=== PATIENT | female | born 1945 | race Caucasian/White ===

== ENCOUNTER 2017-01-09 06:05 | Inpatient (IN) | payer MEDICARE, BC ==
[2017-01-09] VITALS (15 sets, daily range): BP systolic 83–127; BP diastolic 38–63
[~2017-01-09] VITALS: Ht 162.6 cm; Wt 106.6 kg
[~2017-01-09 06:05] MED LIST: ALLO100T PO; AMLO10TA2 PO; ASPI-630 PO; ATEN25TA PO; CALC667C PO; CALC667C6 PO; CARB200T PO; CLOP75TA PO; ERGO500027 PO; FENO160T PO; FERR325T58 PO; FOLI0.8T3 PO; GABA-585 PO; KETO5DRO EACHEYE; LISI-338 PO; MELO7.5T29 PO; OMEG1CAP6 PO; OMEP20CA9 PO; SIMV40TA3 PO
[2017-01-09] MEDS ORDERED: IV NORMAL SALINE 500ML BAG 500 ML IV ONE (06:45)
[2017-01-09 07:07] LABS: POTASSIUM ISTAT 3.8 mmol/L (3.5-5.0)
[2017-01-09 07:11] LABS: BASO # 0.1 x10^3/uL (0.0-0.2); BASO % 1 % (0-3); EOS % 0 % (0-3); HEMATOCRIT 30.1 % (36.0-47.0); LYMPH # 0.8 x10^3/uL (1.0-4.8); LYMPH % 7 % (24-48); MEAN CORPUSCULAR HEMOGLOBIN 34 pg (25-35); MEAN CORPUSCULAR HGB CONC 33 g/dL (31-37); MEAN CORPUSCULAR VOLUME 103 fL (79-100); MONO % 7 % (0-9); NEUT % 85 % (31-73); PLATELET COUNT 90 x10^3/uL (140-400); RED BLOOD COUNT 2.92 x10^6/uL (3.50-5.40); RED CELL DISTRIBUTION WIDTH 13.4 % (11.5-14.5)
--- NOTE | 2017-01-09 07:11 | EKG ---
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
--- NOTE | 2017-01-09 07:16 | RAD ---
Chest x-ray Indication: Generalized weakness and extreme tiredness for 2 days Technique: Portable AP upright chest plane from Comparison: Previous study from 05/06/2016 Findings: Stable position of left chest wall cardiac device with its leads projecting over the heart. Aortic knob calcifications noted. Heart is normal in size. Lungs are clear. No pneumothorax. Mild blunting of right costophrenic angle may be projectional or secondary to trace pleural effusion. Bilateral AC joint osteoarthritis. Otherwise, visualized bony thorax within normal limits. Impression: Mild blunting of right costophrenic angle may be secondary to trace pleural effusion or projectional. Lungs are clear.
[2017-01-09 07:18] LABS: CREATININE 6.7 mg/dL (0.6-1.0); GFR 6.1; POTASSIUM 3.6 mmol/L (3.5-5.1)
[2017-01-09 07:24] LABS: ALBUMIN 2.8 g/dL (3.4-5.0); ALBUMIN/GLOBULIN RATIO 0.7 (1.0-1.7); TOTAL BILIRUBIN 0.5 mg/dL (0.2-1.0); TOTAL PROTEIN 6.7 g/dL (6.4-8.2)
[2017-01-09] MEDS ORDERED: dilTIAZem IV PUSH 25 MG/5 ML VIAL IVP ONE (07:30)
[2017-01-09] MEDS ORDERED: ASPIRIN CHEWABLE 81 MG TABLET. PO ONE (07:45)
[2017-01-09 08:02] LABS: % BASOS 1 % (0-3)
[2017-01-09 08:04] LABS: ANISOCYTOSIS SLIGHT; PLT ESTIMATE DECREASED (ADEQUATE)
--- NOTE | 2017-01-09 08:47 | PHYS DOC ---
Past Medical History Past Medical History: Anemia, Diabetes-Type II, Hypertension, Renal Failure Additional Past Medical Histor: hypocalcemia,bradycardia,obesity,gout, DIALYSIS Past Surgical History: Cholecystectomy, Gastric Bypass, Hysterectomy, Pacemaker , Other Additional Past Surgical Histo: left fa av shunt, Alcohol Use: None Drug Use: None Adult General Chief Complaint Chief Complaint: WEAKNESS/GENERALIZED HPI HPI 31-year-old female with a history of end-stage renal disease on dialysis, heart valve issues by her description, sent from dialysis today because her heart rate was too fast. Patient gets dialyzed Friday. She went this morning for her treatment but her heart rate was irregular and fast so she was referred to the emergency department. Her copy chief is Dr. Jean. She denies chest pain. No Productive cough or fever. Patient does not a specific complaints but states she just generally doesn't feel well Review of Systems Review of Systems Constitutional: Denies fever or chills [] Eyes: Denies change in visual acuity, redness, or eye pain [] HENT: Denies nasal congestion or sore throat [] Respiratory: Denies cough or shortness of breath [] Cardiovascular: No additional information not addressed in HPI [] GI: Denies abdominal pain, nausea, vomiting, bloody stools or diarrhea [] : Denies dysuria or hematuria [] Musculoskeletal: Denies back pain or joint pain [] Integument: Denies rash or skin lesions [] Neurologic: Denies headache, focal weakness or sensory changes [] Endocrine: Denies polyuria or polydipsia [] Current Medications Current Medications Current Medications Medications (Trade) Dose Ordered Sig/Colleen Start Time Stop Time Status Last Admin Dose Admin Diltiazem HCl (Cardizem) 10 mg 1X ONCE 01/09/17 07:30 01/09/17 07:31 DC 01/09/17 07:39 10 MG Diltiazem HCl 125 mg/Dextrose 125 ml @ 0 mls/hr CONT PRN 01/09/17 07:30 01/09/17 07:40 5 MLS/HR Sodium Chloride 500 ml @ 500 mls/hr 1X ONCE 01/09/17 06:45 01/09/17 07:44 DC 01/09/17 06:45 500 MLS/HR Allergies Allergies Allergies Coded Allergies Type Severity Reaction Last Updated Verified ibuprofen Allergy Intermediate 02/29/16 Yes Physical Exam Physical Exam Well-appearing female no acute distress alert communicative and cooperative ,no increased work of breathing Constitutional: Well developed, well nourished, no acute distress, non-toxic appearance. [] HENT: Normocephalic, atraumatic, bilateral external ears normal, oropharynx moist, no oral exudates, nose normal. [] Eyes: PERRLA, EOMI, conjunctiva normal, no discharge. [] Neck: Normal range of motion, no tenderness, supple, no stridor. [] Cardiovascular:Heart rate tachycardia, irregularly irregular rhythm around 140s to 150s no murmur [] Lungs & Thorax: Bilateral breath sounds clear to auscultation [] Abdomen: Bowel sounds normal, soft, no tenderness, no masses, no pulsatile masses. [] Skin: Warm, dry, no erythema, no rash. [] Back: No tenderness, no CVA tenderness. [] Extremities: No tenderness, no cyanosis, no clubbing, ROM intact, no edema. [] Neurologic: Alert and oriented X 3, normal motor function, normal sensory function, no focal deficits noted. [] Psychologic: Affect normal, judgement normal, mood normal. [] Current Patient Data Vital Signs Vital Signs Date Time Temp Pulse Resp B/P (MAP) Pulse Ox O2 Delivery O2 Flow Rate FiO2 01/09/17 07:30 138 18 93/51 (65) 95 Room Air 01/09/17 06:27 99.4 99.4 Lab Values Laboratory Tests Test 01/09/17 06:45 01/09/17 06:52 White Blood Count 12.0 x10^3/uL (4.0-11.0) H Red Blood Count 2.92 x10^6/uL (3.50-5.40) L Hemoglobin 10.0 g/dL (12.0-15.5) L Hematocrit 30.1 % (36.0-47.0) L Mean Corpuscular Volume 103 fL (79-100) H Mean Corpuscular Hemoglobin 34 pg (25-35) Mean Corpuscular Hemoglobin Concent 33 g/dL (31-37) Red Cell Distribution Width 13.4 % (11.5-14.5) Platelet Count 90 x10^3/uL (140-400) L Neutrophils (%) (Auto) 85 % (31-73) H Lymphocytes (%) (Auto) 7 % (24-48) L Monocytes (%) (Auto) 7 % (0-9) Eosinophils (%) (Auto) 0 % (0-3) Basophils (%) (Auto) 1 % (0-3) Neutrophils # (Auto) 10.2 x10^3uL (1.8-7.7) H Lymphocytes # (Auto) 0.8 x10^3/uL (1.0-4.8) L Monocytes # (Auto) 0.9 x10^3/uL (0.0-1.1) Eosinophils # (Auto) 0.0 x10^3/uL (0.0-0.7) Basophils # (Auto) 0.1 x10^3/uL (0.0-0.2) Segmented Neutrophils % 86 % (35-66) H Band Neutrophils % 1 % (0-9) Lymphocytes % 6 % (24-48) L Monocytes % 6 % (0-10) Basophils % 1 % (0-3) Platelet Estimate Decreased (ADEQUATE) Anisocytosis Slight Sodium Level 136 mmol/L (136-145) Potassium Level 3.6 mmol/L (3.5-5.1) Chloride Level 96 mmol/L (98-107) L Carbon Dioxide Level 26 mmol/L (21-32) Anion Gap 14 (6-14) 17 mmol/L (6-14) H Blood Urea Nitrogen 40 mg/dL (7-20) H Creatinine 6.7 mg/dL (0.6-1.0) H Estimated GFR (Cockcroft-Gault) 6.1 BUN/Creatinine Ratio 6 (6-20) Glucose Level 158 mg/dL (70-99) H 151 mg/dL (70-99) H Calcium Level 8.0 mg/dL (8.5-10.1) L Total Bilirubin 0.5 mg/dL (0.2-1.0) Aspartate Amino Transferase (AST) 32 U/L (15-37) Alanine Aminotransferase (ALT) 28 U/L (14-59) Alkaline Phosphatase 164 U/L (46-116) H Troponin I Quantitative 0.458 ng/mL (0.000-0.055) Total Protein 6.7 g/dL (6.4-8.2) Albumin 2.8 g/dL (3.4-5.0) L Albumin/Globulin Ratio 0.7 (1.0-1.7) L Thyroid Stimulating Hormone (TSH) 2.877 uIU/mL (0.358-3.74) POC Hemoglobin 10.9 g/dL (12-15) L POC Hematocrit 32 % (36-40) L POC Sodium 134 mmol/L (135-145) L POC Potassium 3.8 mmol/L (3.5-5.0) POC Chloride 94 mmol/L (98-110) L POC Total CO2 28 mmol/L (23-32) POC Blood Urea Nitrogen 42 mg/dL (8-26) H POC Creatinine 6.3 mg/dL (0.5-1.4) H POC Ionized Calcium (Nancy) 0.94 mmol/L (1.13-1.32) L Laboratory Tests 01/09/17 06:45 Laboratory Tests 01/09/17 06:45 01/09/17 06:52 EKG EKG Atrial fibrillation with rapid ventricular response at 139 right axis deviation. Nonspecific ST and T-wave findings no STEMI interpreted by me [] Radiology/Procedures Radiology/Procedures Chest x-ray with chronic changes spacer no acute disease interpreted by me [] Course & Med Decision Making Course & Med Decision Making Pertinent Labs and Imaging studies reviewed. (See chart for details) Signs and symptoms consistent with new-onset A. fib with RVR. Patient's EKG is unremarkable otherwise however troponin is elevated at 0.458. After initial evaluation Dr. Jean patient's copy chief was paged and details the case discussed with him. He is aware of history and findings and agrees with aspirin administration as well as Cardizem bolus and drip. He accepts patient for inpatient admission to the ICU to his service and he will address anticoagulation as needed. Case discussed with Dr. Rios toll line mechanic customer liaison for Dr. Bender. Dr. kaminski where the history and findings will provide dialysis services for this patient in the ICU 32 minutes critical care [] Dragon Disclaimer Dragon Disclaimer This electronic medical record was generated, in whole or in part, using a voice recognition dictation system. Departure Departure Impression: Primary Impression: Atrial fibrillation with RVR Additional Impressions: Tachycardia Non-STEMI (non-ST elevated myocardial infarction) Disposition: ADMITTED INPATIENT Condition: GUARDED Referrals: YUDITH THOMASON MD (PCP) Problem Qualifiers SALUD ROB MD Jan 09, 2017 08:47
--- NOTE | 2017-01-09 11:01 | PDOC2 ---
CONSULT Date of Consult Date of Consult DATE: 01/09/17 TIME: 10:56 Reason for Consult Reason for Consult: ESRD Referring Physician Referring Physician: MIGUEL A Identification/Chief Complaint Chief Complaint SOB Problems: Source Source: Chart review, Patient History of Present Illness Reason for Visit: THIS IS A 71 YR WHO HAS ESRD. SHE HAS OP HD ON TTS. SHE WENT TO HD THIS AM AND WAS NOTED TO BE VERY SOB AND NOTED TO BE TACHYCARDIC. SHE WAS SENT TO THE ER WITHOUT HD. WHILE IN THE ER SHE WAS NOTED TO BE IN AFIB RVR. THIS IS OF NEW ONSET. TROPONIN LEVEL IS HIGH. OTHERWISE LABS ARE C/W ESRD Past Medical History Cardiovascular: HTN, Other Heme/Onc: Anemia NOS Rheumatologic: Gout Renal/: Chronic renal failure Endocrine: Diabetes, Hyperparathyroidism, Other Past Surgical History Past Surgical History: Pacemaker, Cholecystectomy, Hysterectomy, Other Family History Family History: No Significant Social History ALCOHOL: none Drugs: None Current Problem List Problem List Problems Medical Problems: (1) Non-STEMI (non-ST elevated myocardial infarction) Status: Acute Current Medications Current Medications Current Medications Sodium Chloride 500 ml @ 500 mls/hr 1X ONCE IV Last administered on 06:45; Start 01/09/17 at 06:45; Stop 01/09/17 at 07:44; Status DC Diltiazem HCl (Cardizem) 10 mg 1X ONCE IVP Last administered on 01/09/17 07: 39; Start 01/09/17 at 07:30; Stop 01/09/17 at 07:31; Status DC Diltiazem HCl 125 mg/Dextrose 125 ml @ 0 mls/hr CONT PRN IV SEE I/O RECORD Last administered on 01/09/17 07:40; Start 01/09/17 at 07:30 Aspirin (Children'S Aspirin) 324 mg 1X ONCE PO Last administered on 01/09/17 08:15; Start 01/09/17 at 07:45; Stop 01/09/17 at 07:46; Status DC Active Scripts Active Clopidogrel (Clopidogrel Bisulfate) 75 Mg Tablet 75 Mg PO [id number] Reported Fish Oil 1,000 Mg Capsule ([place]-3 Fatty Acids/Fish Oil) 1 Each Capsule 1 Each PO BID Iron Supplement (Ferrous Sulfate) 325 Mg Tablet 1 Tab PO DAILY Acular (Ketorolac Tromethamine) 5 Ml Drops 1 Drop EACHEYE TID Tegretol (Carbamazepine) 200 Mg Tablet 200 Mg PO TID PRN PRN Vitamin D2 (Ergocalciferol (Vitamin D2)) 50,000 Unit Capsule 50,000 Unit PO WEEKLY Allopurinol 100 Mg Tablet 1 Tab PO DAILY Fenofibrate 160 Mg Tablet 1 Tab PO HS Nephro-Ray Tablet (Folic Acid/Vitamin B Comp W-C) 0.8 Mg Tablet 1 Tab PO HS Gabapentin 100 Mg Capsule 100 Mg PO BID Simvastatin 40 Mg Tablet 40 Mg PO HS Omeprazole 20 Mg Capsule.dr 20 Mg PO DAILY Calcium Acetate 667 Mg Capsule 2,001 Mg PO TIDWMEALS Allergies Allergies: Coded Allergies: ibuprofen (Verified Allergy, Intermediate, 02/29/16) "THINKS IT CAUSES HER KIDNEYS" ROS General: YES: Fatigue, Malaise, Appetite PSYCHOLOGICAL ROS: YES: Anxiety Eyes: Yes Decreased vision HEENT: YES: Heacaches Respiratory: YES: Shortness of breath Cardiovascular: yes Palpitations, yes Orthopnea Gastrointestinal: Yes Constipation Genitourinary: YES Other (ANURIA) Musculoskeletal: Yes Muscular Weakness Neurological: Yes Weakness Skin: Yes Dry Skin Physical Exam General: Alert, Oriented X3, Cooperative, No acute distress HEENT: Atraumatic, PERRLA Lungs: Clear to auscultation Heart: Regular rate, Other (IRREGULAR) Abdomen: Normal bowel sounds, Soft, No tenderness Extremities: No clubbing, No cyanosis, No edema, Other (LEFT FA AVF WITH A GOOD THRILL AND BRUIT) Neuro: Normal speech, Cranial nerves 3-12 NL Psych/Mental Status: Mental status NL, Mood NL MUSCULOSKELETAL: No deformity, No swelling Vitals VITALS Vital Signs Date Time Temp Pulse Resp B/P (MAP) Pulse Ox O2 Delivery O2 Flow Rate FiO2 01/09/17 10:00 125 14 87/48 (61) 94 Room Air 01/09/17 09:00 99.0 99.0 Labs Labs Laboratory Tests Test 01/09/17 06:45 01/09/17 06:52 01/09/17 07:15 White Blood Count 12.0 x10^3/uL (4.0-11.0) Red Blood Count 2.92 x10^6/uL (3.50-5.40) Hemoglobin 10.0 g/dL (12.0-15.5) Hematocrit 30.1 % (36.0-47.0) Mean Corpuscular Volume 103 fL (79-100) Mean Corpuscular Hemoglobin 34 pg (25-35) Mean Corpuscular Hemoglobin Concent 33 g/dL (31-37) Red Cell Distribution Width 13.4 % (11.5-14.5) Platelet Count 90 x10^3/uL (140-400) Neutrophils (%) (Auto) 85 % (31-73) Lymphocytes (%) (Auto) 7 % (24-48) Monocytes (%) (Auto) 7 % (0-9) Eosinophils (%) (Auto) 0 % (0-3) Basophils (%) (Auto) 1 % (0-3) Neutrophils # (Auto) 10.2 x10^3uL (1.8-7.7) Lymphocytes # (Auto) 0.8 x10^3/uL (1.0-4.8) Monocytes # (Auto) 0.9 x10^3/uL (0.0-1.1) Eosinophils # (Auto) 0.0 x10^3/uL (0.0-0.7) Basophils # (Auto) 0.1 x10^3/uL (0.0-0.2) Segmented Neutrophils % 86 % (35-66) Band Neutrophils % 1 % (0-9) Lymphocytes % 6 % (24-48) Monocytes % 6 % (0-10) Basophils % 1 % (0-3) Platelet Estimate Decreased (ADEQUATE) Anisocytosis Slight Sodium Level 136 mmol/L (136-145) Potassium Level 3.6 mmol/L (3.5-5.1) Chloride Level 96 mmol/L (98-107) Carbon Dioxide Level 26 mmol/L (21-32) Anion Gap 14 (6-14) 17 mmol/L (6-14) Blood Urea Nitrogen 40 mg/dL (7-20) Creatinine 6.7 mg/dL (0.6-1.0) Estimated GFR (Cockcroft-Gault) 6.1 BUN/Creatinine Ratio 6 (6-20) Glucose Level 158 mg/dL (70-99) 151 mg/dL (70-99) Calcium Level 8.0 mg/dL (8.5-10.1) Total Bilirubin 0.5 mg/dL (0.2-1.0) Aspartate Amino Transf (AST/SGOT) 32 U/L (15-37) Alanine Aminotransferase (ALT/SGPT) 28 U/L (14-59) Alkaline Phosphatase 164 U/L (46-116) Troponin I Quantitative 0.458 ng/mL (0.000-0.055) Total Protein 6.7 g/dL (6.4-8.2) Albumin 2.8 g/dL (3.4-5.0) Albumin/Globulin Ratio 0.7 (1.0-1.7) Thyroid Stimulating Hormone (TSH) 2.877 uIU/mL (0.358-3.74) Bedside Hemoglobin 10.9 g/dL (12-15) Bedside Hematocrit 32 % (36-40) Bedside Sodium 134 mmol/L (135-145) Bedside Potassium 3.8 mmol/L (3.5-5.0) Bedside Chloride 94 mmol/L (98-110) Bedside Total CO2 28 mmol/L (23-32) Bedside Blood Urea Nitrogen 42 mg/dL (8-26) Bedside Creatinine 6.3 mg/dL (0.5-1.4) Bedside Ionized Calcium (Nancy) 0.94 mmol/L (1.13-1.32) Bedside Troponin I 0.49 ng/ml (<0.08) Laboratory Tests Test 01/09/17 06:45 01/09/17 06:52 01/09/17 07:15 White Blood Count 12.0 x10^3/uL (4.0-11.0) Red Blood Count 2.92 x10^6/uL (3.50-5.40) Hemoglobin 10.0 g/dL (12.0-15.5) Hematocrit 30.1 % (36.0-47.0) Mean Corpuscular Volume 103 fL (79-100) Mean Corpuscular Hemoglobin 34 pg (25-35) Mean Corpuscular Hemoglobin Concent 33 g/dL (31-37) Red Cell Distribution Width 13.4 % (11.5-14.5) Platelet Count 90 x10^3/uL (140-400) Neutrophils (%) (Auto) 85 % (31-73) Lymphocytes (%) (Auto) 7 % (24-48) Monocytes (%) (Auto) 7 % (0-9) Eosinophils (%) (Auto) 0 % (0-3) Basophils (%) (Auto) 1 % (0-3) Neutrophils # (Auto) 10.2 x10^3uL (1.8-7.7) Lymphocytes # (Auto) 0.8 x10^3/uL (1.0-4.8) Monocytes # (Auto) 0.9 x10^3/uL (0.0-1.1) Eosinophils # (Auto) 0.0 x10^3/uL (0.0-0.7) Basophils # (Auto) 0.1 x10^3/uL (0.0-0.2) Segmented Neutrophils % 86 % (35-66) Band Neutrophils % 1 % (0-9) Lymphocytes % 6 % (24-48) Monocytes % 6 % (0-10) Basophils % 1 % (0-3) Platelet Estimate Decreased (ADEQUATE) Anisocytosis Slight Sodium Level 136 mmol/L (136-145) Potassium Level 3.6 mmol/L (3.5-5.1) Chloride Level 96 mmol/L (98-107) Carbon Dioxide Level 26 mmol/L (21-32) Anion Gap 14 (6-14) 17 mmol/L (6-14) Blood Urea Nitrogen 40 mg/dL (7-20) Creatinine 6.7 mg/dL (0.6-1.0) Estimated GFR (Cockcroft-Gault) 6.1 BUN/Creatinine Ratio 6 (6-20) Glucose Level 158 mg/dL (70-99) 151 mg/dL (70-99) Calcium Level 8.0 mg/dL (8.5-10.1) Total Bilirubin 0.5 mg/dL (0.2-1.0) Aspartate Amino Transf (AST/SGOT) 32 U/L (15-37) Alanine Aminotransferase (ALT/SGPT) 28 U/L (14-59) Alkaline Phosphatase 164 U/L (46-116) Troponin I Quantitative 0.458 ng/mL (0.000-0.055) Total Protein 6.7 g/dL (6.4-8.2) Albumin 2.8 g/dL (3.4-5.0) Albumin/Globulin Ratio 0.7 (1.0-1.7) Thyroid Stimulating Hormone (TSH) 2.877 uIU/mL (0.358-3.74) Bedside Hemoglobin 10.9 g/dL (12-15) Bedside Hematocrit 32 % (36-40) Bedside Sodium 134 mmol/L (135-145) Bedside Potassium 3.8 mmol/L (3.5-5.0) Bedside Chloride 94 mmol/L (98-110) Bedside Total CO2 28 mmol/L (23-32) Bedside Blood Urea Nitrogen 42 mg/dL (8-26) Bedside Creatinine 6.3 mg/dL (0.5-1.4) Bedside Ionized Calcium (Nancy) 0.94 mmol/L (1.13-1.32) Bedside Troponin I 0.49 ng/ml (<0.08) Assessment/Plan Assessment/Plan IMP ESRD ANEMIA AFIB RVR-NEW HTN PLAN CARDIZEM GTT CARDIOLOGY EVAL AND TX HD TODAY UF TO DW MONTEZ BOUCHER MD Jan 09, 2017 11:00
--- NOTE | 2017-01-09 11:47 | PDOC1 ---
History and Physical Date of Admission Date of Admission DATE: 01/09/17 TIME: 11:45 Identification/Chief Complaint Chief Complaint Generalized weakness Problems: History of Present Illness History of Present Illness Ms. Avila is a 71 y/o female who is known to me. She has a history of ESRD on HD, HTN, and valvular heart disease. Patient was sent to the ER from her regularly scheduled dialysis appointment this morning due to tachycardia and SOB. She was brought to the ER by her . She reported feeling SOB and had generalized weakness. Denied CP or abdominal pain. EKG in the ER showed new onset atrial fibrillation with RVR (rate 139), no ST elevation. Troponin elevated 0.458. Patient seen and examined today, she reports that her SOA is improving. No other complaints. Past Medical History Cardiovascular: HTN, Other Heme/Onc: Anemia NOS Rheumatologic: Gout Renal/: Chronic renal failure Endocrine: Diabetes, Hyperparathyroidism, Other Past Surgical History Past Surgical History: Pacemaker, Cholecystectomy, Hysterectomy, Other Family History Family History: No Significant Social History ALCOHOL: none Drugs: None Current Problem List Problem List Problems Medical Problems: (1) Non-STEMI (non-ST elevated myocardial infarction) Status: Acute Problems: Current Medications Current Medications Current Medications Sodium Chloride 500 ml @ 500 mls/hr 1X ONCE IV Last administered on 06:45; Start 01/09/17 at 06:45; Stop 01/09/17 at 07:44; Status DC Diltiazem HCl (Cardizem) 10 mg 1X ONCE IVP Last administered on 01/09/17 07: 39; Start 01/09/17 at 07:30; Stop 01/09/17 at 07:31; Status DC Diltiazem HCl 125 mg/Dextrose 125 ml @ 0 mls/hr CONT PRN IV SEE I/O RECORD Last administered on 01/09/17 07:40; Start 01/09/17 at 07:30 Aspirin (Children'S Aspirin) 324 mg 1X ONCE PO Last administered on 01/09/17 08:15; Start 01/09/17 at 07:45; Stop 01/09/17 at 07:46; Status DC Darbepoetin Jerome (Aranesp) 60 mcg WEEKLYHS SQ ; Start 01/09/17 at 21:00 Active Scripts Active Clopidogrel (Clopidogrel Bisulfate) 75 Mg Tablet 75 Mg PO DAILYWBKFT Reported Fish Oil 1,000 Mg Capsule ([place]-3 Fatty Acids/Fish Oil) 1 Each Capsule 1 Each PO BID Iron Supplement (Ferrous Sulfate) 325 Mg Tablet 1 Tab PO DAILY Acular (Ketorolac Tromethamine) 5 Ml Drops 1 Drop EACHEYE TID Tegretol (Carbamazepine) 200 Mg Tablet 200 Mg PO TID PRN PRN Vitamin D2 (Ergocalciferol (Vitamin D2)) 50,000 Unit Capsule 50,000 Unit PO WEEKLY Allopurinol 100 Mg Tablet 1 Tab PO DAILY Fenofibrate 160 Mg Tablet 1 Tab PO HS Nephro-Ray Tablet (Folic Acid/Vitamin B Comp W-C) 0.8 Mg Tablet 1 Tab PO HS Gabapentin 100 Mg Capsule 100 Mg PO BID Simvastatin 40 Mg Tablet 40 Mg PO HS Omeprazole 20 Mg Capsule.dr 20 Mg PO DAILY Calcium Acetate 667 Mg Capsule 2,001 Mg PO TIDWMEALS Allergies Allergies: Coded Allergies: ibuprofen (Verified Allergy, Intermediate, 02/29/16) "THINKS IT CAUSES HER KIDNEYS" Physical Exam General: Alert, Cooperative Lungs: Clear to auscultation Heart: other (tachycardic, irregularly irregular. Normal S1 and S2, no S3, no S4. No murmurs) Abdomen: Normal bowel sounds, Soft, No tenderness Extremities: Other (1+ LE edema (L > R)) Vitals Vitals Vital Signs Date Time Temp Pulse Resp B/P (MAP) Pulse Ox O2 Delivery O2 Flow Rate FiO2 01/09/17 11:00 124 16 91/52 (65) 95 Room Air 01/09/17 09:00 99.0 99.0 Labs Labs Laboratory Tests Test 01/09/17 06:45 01/09/17 06:52 01/09/17 07:15 White Blood Count 12.0 x10^3/uL (4.0-11.0) Red Blood Count 2.92 x10^6/uL (3.50-5.40) Hemoglobin 10.0 g/dL (12.0-15.5) Hematocrit 30.1 % (36.0-47.0) Mean Corpuscular Volume 103 fL (79-100) Mean Corpuscular Hemoglobin 34 pg (25-35) Mean Corpuscular Hemoglobin Concent 33 g/dL (31-37) Red Cell Distribution Width 13.4 % (11.5-14.5) Platelet Count 90 x10^3/uL (140-400) Neutrophils (%) (Auto) 85 % (31-73) Lymphocytes (%) (Auto) 7 % (24-48) Monocytes (%) (Auto) 7 % (0-9) Eosinophils (%) (Auto) 0 % (0-3) Basophils (%) (Auto) 1 % (0-3) Neutrophils # (Auto) 10.2 x10^3uL (1.8-7.7) Lymphocytes # (Auto) 0.8 x10^3/uL (1.0-4.8) Monocytes # (Auto) 0.9 x10^3/uL (0.0-1.1) Eosinophils # (Auto) 0.0 x10^3/uL (0.0-0.7) Basophils # (Auto) 0.1 x10^3/uL (0.0-0.2) Segmented Neutrophils % 86 % (35-66) Band Neutrophils % 1 % (0-9) Lymphocytes % 6 % (24-48) Monocytes % 6 % (0-10) Basophils % 1 % (0-3) Platelet Estimate Decreased (ADEQUATE) Anisocytosis Slight Sodium Level 136 mmol/L (136-145) Potassium Level 3.6 mmol/L (3.5-5.1) Chloride Level 96 mmol/L (98-107) Carbon Dioxide Level 26 mmol/L (21-32) Anion Gap 14 (6-14) 17 mmol/L (6-14) Blood Urea Nitrogen 40 mg/dL (7-20) Creatinine 6.7 mg/dL (0.6-1.0) Estimated GFR (Cockcroft-Gault) 6.1 BUN/Creatinine Ratio 6 (6-20) Glucose Level 158 mg/dL (70-99) 151 mg/dL (70-99) Calcium Level 8.0 mg/dL (8.5-10.1) Total Bilirubin 0.5 mg/dL (0.2-1.0) Aspartate Amino Transf (AST/SGOT) 32 U/L (15-37) Alanine Aminotransferase (ALT/SGPT) 28 U/L (14-59) Alkaline Phosphatase 164 U/L (46-116) Troponin I Quantitative 0.458 ng/mL (0.000-0.055) Total Protein 6.7 g/dL (6.4-8.2) Albumin 2.8 g/dL (3.4-5.0) Albumin/Globulin Ratio 0.7 (1.0-1.7) Thyroid Stimulating Hormone (TSH) 2.877 uIU/mL (0.358-3.74) Bedside Hemoglobin 10.9 g/dL (12-15) Bedside Hematocrit 32 % (36-40) Bedside Sodium 134 mmol/L (135-145) Bedside Potassium 3.8 mmol/L (3.5-5.0) Bedside Chloride 94 mmol/L (98-110) Bedside Total CO2 28 mmol/L (23-32) Bedside Blood Urea Nitrogen 42 mg/dL (8-26) Bedside Creatinine 6.3 mg/dL (0.5-1.4) Bedside Ionized Calcium (Nancy) 0.94 mmol/L (1.13-1.32) Bedside Troponin I 0.49 ng/ml (<0.08) Laboratory Tests Test 01/09/17 06:45 01/09/17 06:52 01/09/17 07:15 White Blood Count 12.0 x10^3/uL (4.0-11.0) Red Blood Count 2.92 x10^6/uL (3.50-5.40) Hemoglobin 10.0 g/dL (12.0-15.5) Hematocrit 30.1 % (36.0-47.0) Mean Corpuscular Volume 103 fL (79-100) Mean Corpuscular Hemoglobin 34 pg (25-35) Mean Corpuscular Hemoglobin Concent 33 g/dL (31-37) Red Cell Distribution Width 13.4 % (11.5-14.5) Platelet Count 90 x10^3/uL (140-400) Neutrophils (%) (Auto) 85 % (31-73) Lymphocytes (%) (Auto) 7 % (24-48) Monocytes (%) (Auto) 7 % (0-9) Eosinophils (%) (Auto) 0 % (0-3) Basophils (%) (Auto) 1 % (0-3) Neutrophils # (Auto) 10.2 x10^3uL (1.8-7.7) Lymphocytes # (Auto) 0.8 x10^3/uL (1.0-4.8) Monocytes # (Auto) 0.9 x10^3/uL (0.0-1.1) Eosinophils # (Auto) 0.0 x10^3/uL (0.0-0.7) Basophils # (Auto) 0.1 x10^3/uL (0.0-0.2) Segmented Neutrophils % 86 % (35-66) Band Neutrophils % 1 % (0-9) Lymphocytes % 6 % (24-48) Monocytes % 6 % (0-10) Basophils % 1 % (0-3) Platelet Estimate Decreased (ADEQUATE) Anisocytosis Slight Sodium Level 136 mmol/L (136-145) Potassium Level 3.6 mmol/L (3.5-5.1) Chloride Level 96 mmol/L (98-107) Carbon Dioxide Level 26 mmol/L (21-32) Anion Gap 14 (6-14) 17 mmol/L (6-14) Blood Urea Nitrogen 40 mg/dL (7-20) Creatinine 6.7 mg/dL (0.6-1.0) Estimated GFR (Cockcroft-Gault) 6.1 BUN/Creatinine Ratio 6 (6-20) Glucose Level 158 mg/dL (70-99) 151 mg/dL (70-99) Calcium Level 8.0 mg/dL (8.5-10.1) Total Bilirubin 0.5 mg/dL (0.2-1.0) Aspartate Amino Transf (AST/SGOT) 32 U/L (15-37) Alanine Aminotransferase (ALT/SGPT) 28 U/L (14-59) Alkaline Phosphatase 164 U/L (46-116) Troponin I Quantitative 0.458 ng/mL (0.000-0.055) Total Protein 6.7 g/dL (6.4-8.2) Albumin 2.8 g/dL (3.4-5.0) Albumin/Globulin Ratio 0.7 (1.0-1.7) Thyroid Stimulating Hormone (TSH) 2.877 uIU/mL (0.358-3.74) Bedside Hemoglobin 10.9 g/dL (12-15) Bedside Hematocrit 32 % (36-40) Bedside Sodium 134 mmol/L (135-145) Bedside Potassium 3.8 mmol/L (3.5-5.0) Bedside Chloride 94 mmol/L (98-110) Bedside Total CO2 28 mmol/L (23-32) Bedside Blood Urea Nitrogen 42 mg/dL (8-26) Bedside Creatinine 6.3 mg/dL (0.5-1.4) Bedside Ionized Calcium (Nancy) 0.94 mmol/L (1.13-1.32) Bedside Troponin I 0.49 ng/ml (<0.08) VTE Prophylaxis Ordered VTE Prophylaxis Devices: No VTE Pharmacological Prophylaxi: Yes Assessment/Plan Assessment/Plan 1. New onset Atrial fibrillation with RVR Pt looks dry - D/C Cardizem drip - One time dose Digoxin 500mcg for rate control - Repeat Echocardiogram today; will consider Antiarrhythmic pending Echo results - Start IV fluids (500cc 5% Albumin with additional 500cc with dialysis this evening) 2. ESRD - Appreciate input from Dr. Rios, HD scheduled for this evening. 3. Anemia - Nephrology following, patient started on Aranesp. 4. HTN - Controlled, continue [employer] medications INEZ GRADY MD Jan 09, 2017 11:47
[2017-01-09] MEDS ORDERED: ALBUMIN HUMAN 5% 500 ML IV ONE ×2 (13:00→16:00)
[2017-01-09] MEDS ORDERED: DIGOXIN IV 500 MCG/2 ML AMPUL. IV ONE (13:00)
[2017-01-09] MEDS ORDERED: ATEN50TA PO (14:53)
[2017-01-09] MEDS ORDERED: MELO7.5T29 PO (14:53)
[2017-01-09] MEDS ORDERED: ACET325T9 PO (14:53)
[2017-01-09] MEDS ORDERED: FERR210T PO (14:53)
[2017-01-09] MEDS ORDERED: ASPI-482 PO (14:53)
[2017-01-09] MEDS ORDERED: IV NORMAL SALINE 1000ML BAG 1,000 ML IV PRN ×2 (16:31)
[2017-01-09] MEDS ORDERED: DIALYSIS PATIENT. MC PRN (16:45)
[2017-01-09] MEDS: fentaNYL PF VIAL 100 MCG/2 ML VIAL IV PRN (17:52)
[2017-01-09] MEDS: oxyCODONE/APAP 5/325 1 TAB TABLET PO PRN ×2 (18:30→21:31)
[2017-01-09] MEDS ORDERED: fentaNYL PF VIAL 100 MCG/2 ML VIAL IM ONE (20:00)
[2017-01-09] MEDS ORDERED: fentaNYL PF VIAL 100 MCG/2 ML VIAL IV ONE (20:00)
[2017-01-09] MEDS: DARBEPOETIN ALFA 60 MCG/0.3 ML DISP.SYRIN. SQ SCH (21:31)
[2017-01-10] VITALS (16 sets, daily range): BP systolic 102–137; BP diastolic 36–78
[2017-01-10] MEDS: oxyCODONE/APAP 5/325 1 TAB TABLET PO PRN ×3 (08:27→21:21)
--- NOTE | 2017-01-10 11:31 | PDOC ---
Renal-Progress Notes Subjective Notes Notes SOME RIGHT SHOULDER PAIN-BETTER WITH RUBBING IT History of Present Illness Hx of present illness STABLE Vitals Vitals Vital Signs Date Time Temp Pulse Resp B/P (MAP) Pulse Ox O2 Delivery O2 Flow Rate FiO2 01/10/17 10:00 60 14 108/56 (73) 93 Room Air 01/10/17 08:00 98.1 98.1 01/09/17 22:31 2.0 Weight Weight [ ] I.O. Intake and Output Intake and Output 01/10/17 07:00 Intake Total 2135 ml Output Total 0 ml Balance 2135 ml Intake Oral 580 ml IV Total 1555 ml Output Urine Total 0 ml Labs Labs Laboratory Tests Test 01/09/17 13:50 01/09/17 19:45 Troponin I Quantitative 0.803 ng/mL (0.000-0.055) 0.823 ng/mL (0.000-0.055) Review of Systems Constitutional: yes: weakness, alert, oriented Ears/Nose/Throat: Yes: no symptom reported Eyes: Yes: no symptom reported Genitourinary: Yes: no symptom reported Musculoskeletal: Yes: muscle pain Skin: Yes no symptom reported Psychiatric/Neurological: Yes: no symptom reported Physical Exam General Appearance: no apparent distress Skin: warm Respiratory: bilateral CTA Heart: S1S2, RRR Abdomen: soft, bowel sounds present Extremities: pulses present, no edema Neurology: alert, oriented, follow commands Assessment Assessment IMP NEW ONSET AFIB RVR ANEMIA HTN ESRD DECONDITIONING PLAN HD TOMORROW NEG CHRONOTROPIC AGENTS INCREASE ACTIVITY WHEN OK WITH CARDIOLOGY MONTEZ COBB MD Jan 10, 2017 11:31
--- NOTE | 2017-01-10 11:36 | PDOC ---
PROGRESS NOTES Subjective Subjective Patient is improving, heart rate now controlled. Denies CP, SOB, or palpitations. Troponin continues to trend upward (now 0.823) Patient does c/o of neck pain (R occipital region), pain started yesterday during dialysis. Patient has history of chronic arthritis. Pain controlled with narcotics. No other complaints. I will review Echocardiogram results when available. Objective Objective Vital Signs Date Time Temp Pulse Resp B/P (MAP) Pulse Ox O2 Delivery O2 Flow Rate FiO2 01/10/17 10:00 60 14 108/56 (73) 93 Room Air 01/10/17 08:00 98.1 98.1 01/09/17 22:31 2.0 Intake and Output 01/10/17 06:59 Intake Total 2135 ml Output Total 0 ml Balance 2135 ml Intake Oral 580 ml IV Total 1555 ml Output Urine Total 0 ml Physical Exam Abdomen: Normal bowel sounds, Soft, No tenderness Heart: Other (regular rate and rhythm. Normal S1 and S2, no S3, no S4. No murmurs) Extremities: No cyanosis, No edema General: Alert, Cooperative Lungs: Clear to auscultation Assessment Assessment Problems Medical Problems: (1) Non-STEMI (non-ST elevated myocardial infarction) Status: Acute Plan Plan of Care 1. New onset Atrial fibrillation with RVR - Patient improving, rate controlled. - Repeat Echocardiogram pending; will consider Antiarrhythmic after reviewing results 2. R Shoulder/Neck pain - History of chronic arthritis - Continue opioids for pain control - Referral to pain management 2. ESRD - Appreciate input from Dr. Rios, HD scheduled for tomorrow. 3. Anemia - Nephrology following, patient started on Aranesp. 4. HTN - Controlled, continue [employer] medications Dispo: Transfer to the floor, Plan for discharge tomorrow after dialysis. Comment Review of Relevant I have reviewed the following items michelle (where applicable) has been applied. Labs Laboratory Tests Test 01/09/17 06:45 01/09/17 06:52 01/09/17 07:15 01/09/17 08:35 White Blood Count 12.0 x10^3/uL (4.0-11.0) Red Blood Count 2.92 x10^6/uL (3.50-5.40) Hemoglobin 10.0 g/dL (12.0-15.5) Hematocrit 30.1 % (36.0-47.0) Mean Corpuscular Volume 103 fL (79-100) Mean Corpuscular Hemoglobin 34 pg (25-35) Mean Corpuscular Hemoglobin Concent 33 g/dL (31-37) Red Cell Distribution Width 13.4 % (11.5-14.5) Platelet Count 90 x10^3/uL (140-400) Neutrophils (%) (Auto) 85 % (31-73) Lymphocytes (%) (Auto) 7 % (24-48) Monocytes (%) (Auto) 7 % (0-9) Eosinophils (%) (Auto) 0 % (0-3) Basophils (%) (Auto) 1 % (0-3) Neutrophils # (Auto) 10.2 x10^3uL (1.8-7.7) Lymphocytes # (Auto) 0.8 x10^3/uL (1.0-4.8) Monocytes # (Auto) 0.9 x10^3/uL (0.0-1.1) Eosinophils # (Auto) 0.0 x10^3/uL (0.0-0.7) Basophils # (Auto) 0.1 x10^3/uL (0.0-0.2) Segmented Neutrophils % 86 % (35-66) Band Neutrophils % 1 % (0-9) Lymphocytes % 6 % (24-48) Monocytes % 6 % (0-10) Basophils % 1 % (0-3) Platelet Estimate Decreased (ADEQUATE) Anisocytosis Slight Sodium Level 136 mmol/L (136-145) Potassium Level 3.6 mmol/L (3.5-5.1) Chloride Level 96 mmol/L (98-107) Carbon Dioxide Level 26 mmol/L (21-32) Anion Gap 14 (6-14) 17 mmol/L (6-14) Blood Urea Nitrogen 40 mg/dL (7-20) Creatinine 6.7 mg/dL (0.6-1.0) Estimated GFR (Cockcroft-Gault) 6.1 BUN/Creatinine Ratio 6 (6-20) Glucose Level 158 mg/dL (70-99) 151 mg/dL (70-99) Calcium Level 8.0 mg/dL (8.5-10.1) Total Bilirubin 0.5 mg/dL (0.2-1.0) Aspartate Amino Transf (AST/SGOT) 32 U/L (15-37) Alanine Aminotransferase (ALT/SGPT) 28 U/L (14-59) Alkaline Phosphatase 164 U/L (46-116) Troponin I Quantitative 0.458 ng/mL (0.000-0.055) Total Protein 6.7 g/dL (6.4-8.2) Albumin 2.8 g/dL (3.4-5.0) Albumin/Globulin Ratio 0.7 (1.0-1.7) Thyroid Stimulating Hormone (TSH) 2.877 uIU/mL (0.358-3.74) Bedside Hemoglobin 10.9 g/dL (12-15) Bedside Hematocrit 32 % (36-40) Bedside Sodium 134 mmol/L (135-145) Bedside Potassium 3.8 mmol/L (3.5-5.0) Bedside Chloride 94 mmol/L (98-110) Bedside Total CO2 28 mmol/L (23-32) Bedside Blood Urea Nitrogen 42 mg/dL (8-26) Bedside Creatinine 6.3 mg/dL (0.5-1.4) Bedside Ionized Calcium (Nancy) 0.94 mmol/L (1.13-1.32) Bedside Troponin I 0.49 ng/ml (<0.08) Nasal Screen MRSA (PCR) Positive (Negative) Test 01/09/17 13:50 01/09/17 19:45 Troponin I Quantitative 0.803 ng/mL (0.000-0.055) 0.823 ng/mL (0.000-0.055) Laboratory Tests Test 01/09/17 13:50 01/09/17 19:45 Troponin I Quantitative 0.803 ng/mL (0.000-0.055) 0.823 ng/mL (0.000-0.055) Medications Current Medications Sodium Chloride 500 ml @ 500 mls/hr 1X ONCE IV Last administered on 06:45; Start 01/09/17 at 06:45; Stop 01/09/17 at 07:44; Status DC Diltiazem HCl (Cardizem) 10 mg 1X ONCE IVP Last administered on 01/09/17 07: 39; Start 01/09/17 at 07:30; Stop 01/09/17 at 07:31; Status DC Diltiazem HCl 125 mg/Dextrose 125 ml @ 0 mls/hr CONT PRN IV SEE I/O RECORD Last administered on 01/09/17 07:40; Start 01/09/17 at 07:30 Aspirin (Children'S Aspirin) 324 mg 1X ONCE PO Last administered on 01/09/17 08:15; Start 01/09/17 at 07:45; Stop 01/09/17 at 07:46; Status DC Darbepoetin Jerome (Aranesp) 60 mcg WEEKLYHS SQ Last administered on 01/09/17 21 :31; Start 01/09/17 at 21:00 Albumin Human 500 ml @ 125 mls/hr 1X ONCE IV Last administered on 01/09/17 13:02; Start 01/09/17 at 13:00; Stop 01/09/17 at 16:59; Status DC Albumin Human 500 ml @ 125 mls/hr 1X ONCE IV Last administered on 01/09/17 16:35; Start 01/09/17 at 16:00; Stop 01/09/17 at 19:59; Status DC Digoxin (Lanoxin) 500 mcg 1X ONCE IV Last administered on 01/09/17 13:03; Start 01/09/17 at 13:00; Stop 01/09/17 at 13:01; Status DC Sodium Chloride 1,000 ml @ 1,000 mls/hr Q1H PRN IV hypotension; Start 01/09/17 at 16:31; Stop 01/09/17 at 22:30; Status DC Sodium Chloride 1,000 ml @ 400 mls/hr Q2H30M PRN IV PATENCY; Start 01/09/17 at 16:31; Stop 01/10/17 at 04:30; Status DC Info (PHARMACY MONITORING -- do not chart) 1 each PRN DAILY PRN MC SEE COMMENTS ; Start 01/09/17 at 16:45 Fentanyl Citrate (Fentanyl 2ml Vial) 50 mcg PRN Q4HRS PRN IV PAIN Last administered on 01/09/17 17:52; Start 01/09/17 at 18:00 Oxycodone/ Acetaminophen (Percocet 5/325) 1 tab PRN Q4HRS PRN PO PAIN Last administered on 01/10/17 08:27; Start 01/09/17 at 18:00 Fentanyl Citrate (Fentanyl 2ml Vial) 50 mcg 1X ONCE IM ; Start 01/09/17 at 20: 00; Stop 01/09/17 at 20:01; Status Cancel Fentanyl Citrate (Fentanyl 2ml Vial) 50 mcg 1X ONCE IV Last administered on t 19:57; Start 01/09/17 at 20:00; Stop 01/09/17 at 20:01; Status DC Active Scripts Active Reported Ferric Citrate 210 Mg Tablet 210 Mg PO Meloxicam 7.5 Mg Tablet 1 Tab PO DAILY Atenolol 50 Mg Tablet 1 Tab PO DAILY Tylenol (Acetaminophen) 325 Mg Tablet 500 Mg PO Aspir 81 (Aspirin) 81 Mg Tablet.dr 1 Tab PO DAILY Fish Oil 1,000 Mg Capsule ([place]-3 Fatty Acids/Fish Oil) 1 Each Capsule 1 Each PO BID Vitamin D2 (Ergocalciferol (Vitamin D2)) 50,000 Unit Capsule 50,000 Unit PO WEEKLY Allopurinol 100 Mg Tablet 1 Tab PO DAILY Nephro-Ray Tablet (Folic Acid/Vitamin B Comp W-C) 0.8 Mg Tablet 1 Tab PO HS Gabapentin 100 Mg Capsule 100 Mg PO BID Omeprazole 20 Mg Capsule.dr 20 Mg PO DAILY Calcium Acetate 667 Mg Capsule 2,001 Mg PO TIDWMEALS Vitals/I & O Vital Sign - Last 24 Hours 01/09/17 01/09/17 01/09/17 01/09/17 12:00 12:00 13:00 13:03 Temp 98.9 98.9 Pulse 123 106 106 Resp 16 18 B/P (MAP) 91/49 (63) 92/57 (69) 92/57 Pulse Ox 96 97 O2 Delivery Room Air Room Air Room Air 01/09/17 01/09/17 01/09/17 01/09/17 14:00 15:00 16:00 16:00 Temp 98.5 98.5 Pulse 90 110 64 Resp 18 17 16 B/P (MAP) 85/46 (59) 92/48 (63) 96/39 (58) Pulse Ox 96 97 97 O2 Delivery Room Air Room Air Room Air Room Air 01/09/17 01/09/17 01/09/17 01/09/17 17:00 17:52 18:00 18:22 Pulse 60 62 Resp 16 22 20 25 B/P (MAP) 105/38 (60) 116/63 (80) Pulse Ox 97 93 98 98 O2 Delivery Room Air Room Air Room Air Room Air 01/09/17 01/09/17 01/09/17 01/09/17 18:30 19:00 19:57 20:00 Temp 99.6 99.6 Pulse 61 60 Resp 22 22 22 20 B/P (MAP) 110/50 (70) 104/47 (66) Pulse Ox 98 97 96 95 O2 Delivery Room Air Room Air Room Air Room Air 01/09/17 01/09/17 01/09/17 01/09/17 20:29 21:00 21:31 22:00 Pulse 60 60 Resp 20 21 18 18 B/P (MAP) 105/59 (74) 83/51 (62) Pulse Ox 92 95 95 99 O2 Delivery Room Air Room Air Room Air Nasal Cannula O2 Flow Rate 2.0 01/09/17 01/09/17 01/10/17 01/10/17 22:31 23:00 00:00 01:00 Temp 99.2 99.2 Pulse 71 62 60 Resp 18 16 14 20 B/P (MAP) 127/57 (80) 103/51 (68) 105/53 (70) Pulse Ox 99 94 93 96 O2 Delivery Room Air Room Air Room Air O2 Flow Rate 2.0 01/10/17 01/10/17 01/10/17 01/10/17 02:00 03:00 04:00 05:00 Temp 98.5 98.5 Pulse 62 66 62 60 Resp 18 16 16 22 B/P (MAP) 106/51 (69) 116/52 (73) 115/46 (69) 137/61 (86) Pulse Ox 92 93 92 93 O2 Delivery Room Air Room Air Room Air Room Air 01/10/17 01/10/17 01/10/17 01/10/17 06:00 07:00 08:00 08:00 Temp 98.1 98.1 Pulse 60 63 62 Resp 16 14 24 B/P (MAP) 102/48 (66) 126/57 (80) 117/62 (80) Pulse Ox 91 96 95 O2 Delivery Room Air Room Air Room Air Room Air 01/10/17 01/10/17 01/10/17 01/10/17 08:27 09:00 09:27 10:00 Pulse 60 60 Resp 26 14 B/P (MAP) 127/78 (94) 108/56 (73) Pulse Ox 95 93 O2 Delivery Room Air Room Air Room Air Room Air Intake and Output 01/09/17 01/09/17 01/10/17 14:59 22:59 06:59 Intake Total 980 ml 1055 ml 100 ml Output Total 0 ml 0 ml 0 ml Balance 980 ml 1055 ml 100 ml INEZ GRADY MD Jan 10, 2017 11:36
--- NOTE | 2017-01-10 14:42 | CARD ---
APPROVED REPORT EXAM: Two-dimensional and M-mode echocardiogram with Doppler and color Doppler. Other Information Quality : GoodHR: 129bpm Rhythm : Atrial Fibrillation-RVR INDICATION Arrhythmia Mitral Valve Disease Congestive Heart Failure 2D DIMENSIONS RVDd3.3 (2.9-3.5cm)Left Atrium(2D)4.9 (1.6-4.0cm) IVSd1.2 (0.7-1.1cm)Aortic Root(2D)2.5 (2.0-3.7cm) LVDd4.2 (3.9-5.9cm)LVOT Diameter2.0 (1.8-2.4cm) PWd1.2 (0.7-1.1cm)LVDs2.5 (2.5-4.0cm) FS (%) 40.3 %SV56.7 ml LVEF(%)70.0 (>50%) Aortic Valve AoV Peak Micha.239.5cm/sAoV VTI46.3cm AO Peak GR.22.9mmHgLVOT Peak Micha.147.1cm/s AO Mean GR.14mmHgAVA (VMAX)1.93cm2 AI P 1/2 [id number] Mitral Valve MV E Peak Gr.8mmHgMV E Mean Gr.3mmHg Pulmonary Valve PV Peak Twmgkqgg160.6cm/s Tricuspid Valve TR P. [id number]/sTR Peak Gr.44mmHg LEFT VENTRICLE The left ventricle is normal size. There is mild concentric left ventricular hypertrophy. The left ve ntricular systolic function is normal and the ejection fraction is within normal range. The Ejection Fraction is 70%. There is normal LV segmental wall motion. Tissue Doppler imaging reveals moderate le ft ventricular diastolic dysfunction. RIGHT VENTRICLE The right ventricle is normal size. There is normal right ventricular wall thickness. The right ventr icular systolic function is normal. ATRIA The left atrium is mildly dilated. The right atrium size is normal. The interatrial septum is intact with no evidence for an atrial septal defect or patent foramen ovale as noted on 2-D or Doppler imagi ng. AORTIC VALVE The aortic valve is moderately sclerotic. The aortic valve is trileaflet. Doppler and Color Flow reve aled mild aortic regurgitation. There is no significant aortic valvular stenosis. MITRAL VALVE Mitral annular calcification is moderate. The mitral valve leaflets are thickened. There is no eviden ce of mitral valve prolapse. There is no mitral valve stenosis. Doppler and Color Flow revealed mild mitral regurgitation. TRICUSPID VALVE Doppler and Color Flow revealed mild tricuspid regurgitation. The pulmonary artery systolic pressure is estimated at 47 mmHg. There is moderate pulmonary hypertension. PULMONIC VALVE The pulmonary valve is not well visualized but appears to open adequately. Doppler and Color Flow rev ealed trace pulmonic valvular regurgitation. There is no pulmonic valvular stenosis by spectral Doppl er. GREAT VESSELS The aortic root is normal in size. The ascending aorta is normal in size. The pulmonary artery is nor mal. The IVC is normal in size and collapses <50% with inspiration. PERICARDIAL EFFUSION There is no evidence of significant pericardial effusion. Critical Notification Critical Value: No <Conclusion> The left ventricular systolic function is normal and the ejection fraction is within normal range. The Ejection Fraction is 70%. Tissue Doppler imaging reveals moderate left ventricular diastolic dysfunction. There is mild concentric left ventricular hypertrophy. The left atrium is mildly dilated. The right atrium size is normal. The aortic valve is moderately sclerotic. The aortic valve is trileaflet. Doppler and Color Flow revealed mild aortic regurgitation. Doppler and Color Flow revealed mild mitral regurgitation. Doppler and Color Flow revealed mild tricuspid regurgitation. The pulmonary artery systolic pressure is estimated at 47 mmHg. There is moderate pulmonary hypertension. The pulmonary valve is not well visualized but appears to open adequately. Doppler and Color Flow revealed trace pulmonic valvular regurgitation. There is no pulmonic valvular stenosis by spectral Doppler. There is no evidence of significant pericardial effusion.
[2017-01-10] MEDS: ATENOLOL 50 MG TABLET. PO SCH (14:58)
[2017-01-10] MEDS: ALLOPURINOL 100 MG TABLET. PO SCH (14:58)
[2017-01-10] MEDS: GABAPENTIN 100 MG CAPSULE. PO SCH ×2 (14:58→21:20)
[2017-01-10] MEDS: ASPIRIN ENTERIC COATED 81 MG TABLET.DR. PO SCH (14:58)
[2017-01-10] MEDS: PANTOPRAZOLE 40 MG TABLET.DR. PO SCH (14:58)
[2017-01-10] MEDS: MELOXICAM 7.5 MG TABLET PO SCH (14:58)
[2017-01-10] MEDS ORDERED: ALBUMIN HUMAN 5% 500 ML IV ONE (15:15)
[2017-01-10] MEDS ORDERED: DIGOXIN IV 500 MCG/2 ML AMPUL. IV ONE (15:30)
[2017-01-10] MEDS: CALCIUM ACETATE 667 MG CAPSULE PO SCH (17:34)
[2017-01-10] MEDS: FOLIC/VIT B COMP W-C (RENAL) TABLET. PO SCH (21:20)
[2017-01-11] VITALS (18 sets, daily range): BP systolic 87–134; BP diastolic 22–91
--- NOTE | 2017-01-11 00:12 | ACF ---
Admission Forms Criteria ATRIAL FIBRILLATION Clinical Indications for Admission to Inpatient Care ([place]/check or initial the applicable condition/criteria) Admission is indicated for ANY ONE of the following(1)(2)(3)(4)(5)(6)(7)(8): [ ]I. Myocardial ischemia that persists despite outpatient and observation care treatment (13) [ ]II. Myocardial infarction [ ]III. Hemodynamic instability [ ]IV. Heart failure (e.g., pulmonary edema) (14) [ ]V. Altered mental status that is severe or persistent complications secondary to comorbidities (eg, symptomatic heart failure) [ ]. Syncope [ ]VII. Patient has implantable cardioverter defibrillator that has fired more than once within past 24hror needs immediate adjustment of settings that cannot be done other than in inpatient setting. (15) [ ]VIII. Suspected accessory pathway (e.g., Rebwa-Wtrhjlefk-Rblgr syndrome) on ECG [ ]IX. Medication toxicity (e.g., digitalis) causing arrhythmia(16) [ ]X. Underlying medical condition that necessitates inpatient care(e.g., thyrotoxicosis, pneumonia)(17) [ ]XI. Continuous ECG monitoring is required for condition causing arrhythmia (e.g., severe hyperkalemia, hypokalemia, acid-base disturbance)(18)(19)(20) [ ]XII. Initiation of antiarrhythmic drug therapy is needed in patient at high risk of adverse effects as indicated by ANY ONE of the following: [ ]a) Significant structural heart disease (e.g., reduced ejection fraction, congenital heart disease, valvular heart disease) [ ]b) Prolonged QT interval [ ]c) Underlying sinus node or atrioventricular conduction disturbances [ ]d) Need for treatment with antiarrhythmic drugs that have significant proarrhythmic potential (e.g., dofetilide, sotalol, procainamide) [ ]e) Patient whose sinus rhythm has never been observed on ECG [X]XIII. Persistent symptomatic tachycardia (rate > 100 bpm) despite outpatient and observation level of care (eg, rate cannot be sufficiently controlled [ ]XIV. Elective or urgent cardioversion that cannot be performed on outpatient basis or during observation care. [A] (Use also A Fib: Observation Care ) as appropriate.(21)(22)(23) Extended stay beyond goal length of stay may be needed for (1)(43)(44): [ ]a) Unstable comorbidities (eg, heart failure, COPD, renal insuffciency) [ ]b) Persistently uncontrolled atrial fibrillation or other arrhythmias (45) [ ]c) Acute thromboembolic event (e.g., stroke, limb ischemia) [ ]d) Need for inpatient attainment of full anticoagulation(28)(46)(47) The original [facility] content created by [facility] [employer] has been revised. The portions of the content which have been revised are identified through the use of italic text, and [facility] has neither reviewed nor approved the modified material. All other unmodified content is copyright [facility] [employer]. Please see references footnoted in the original [facility] edition [facility] Admission Criteria Met?: Yes RON ZAMORANO Jan 11, 2017 00:12
[2017-01-11 04:14] LABS: CALCIUM 8.5 mg/dL (8.5-10.1); CREATININE 5.4 mg/dL (0.6-1.0); GFR 7.8; POTASSIUM 4.3 mmol/L (3.5-5.1)
[2017-01-11] MEDS: CALCIUM ACETATE 667 MG CAPSULE PO SCH ×3 (08:00→17:36)
[2017-01-11] MEDS: oxyCODONE/APAP 5/325 1 TAB TABLET PO PRN (08:31)
[2017-01-11] MEDS ORDERED: LIDOCAINE 1% PF 2 ML VIAL. ONE (08:47)
[2017-01-11] MEDS ORDERED: IV NORMAL SALINE 1000ML BAG 1,000 ML IV PRN (08:55)
[2017-01-11] MEDS ORDERED: diphenhydrAMINE 50 MG/ML VIAL IV PRN (09:00)
[2017-01-11] MEDS: ATENOLOL 50 MG TABLET. PO SCH (09:00)
[2017-01-11] MEDS ORDERED: ACETAMINOPHEN 500 MG TABLET PO PRN (09:00)
[2017-01-11] MEDS: GABAPENTIN 100 MG CAPSULE. PO SCH ×2 (09:00→20:42)
[2017-01-11] MEDS ORDERED: DIALYSIS PATIENT. MC PRN (09:00)
[2017-01-11] MEDS ORDERED: ALBUMIN HUMAN 25% 200 ML IV PRN (09:00)
[2017-01-11] MEDS ORDERED: LIDOCAINE 1% PF 2 ML VIAL. INJ ONE (09:00)
[2017-01-11] MEDS ORDERED: ALBUMIN HUMAN 5% 500 ML IV ONE (11:45)
--- NOTE | 2017-01-11 12:00 | PDOC3 ---
Discharge Summary* Date of Admission: Jan 09, 2017 Date of Discharge: Jan 11, 2017 Admitting Diagnosis Confusion Atrial fibrillation with a rapid ventricular response Tachycardia End-stage renal disease Problems: Final Diagnosis Atrial fibrillation with a rapid ventricular response Hypovolemia Dehydration End-stage renal disease CONSULTS Dr. Rios Brief Hospital Course Patient is a 71-year-old lady with a known history of end-stage renal disease that is on dialysis and has also coronary artery disease. The patient had been doing rather well until she started becoming confused and was hypotensive during dialysis at which time she was referred to the emergency room where she was seen and evaluated. The patient was found to be in atrial fibrillation with a rapid ventricular response. She was started on IV Cardizem but did not tolerate this because of the hypotension. I saw the patient and had her admitted to intensive care and then once there I felt that she was dehydrated and hypovolemic better for IV fluids were started and to help control the rate digoxin was utilized. With this the patient slowed down and then she was able to handle the dialysis. Things progressed slowly but after giving her more IV fluids and doing the dialysis without removing any significant volume she eventually converted back to sinus rhythm. Her pacemaker was functioning normally and with this we did not have to be concerned with bradycardia. Today the patient is doing better and handling the dialysis well therefore at the end of the dialysis we are discharging the patient. She is going home in stable condition please see the MRAD for the list of medications. She will be continuing dialysis 3 times a week and I will see her as an outpatient in 2 weeks. Patient being discharged home CONDITION AT DISCHARGE: Improved, Stable Scheduled Allopurinol (Allopurinol), 1 TAB PO DAILY, (Reported) Aspirin (Aspir 81), 1 TAB PO DAILY, (Reported) Atenolol (Atenolol), 1 TAB PO DAILY, (Reported) Calcium Acetate (Calcium Acetate), 2,001 MG PO TIDWMEALS, (Reported) Ergocalciferol (Vitamin D2) (Vitamin D2), 50,000 UNIT PO WEEKLY, (Reported) Folic Acid/Vitamin B Comp W-C (Nephro-Ray Tablet), 1 TAB PO HS, (Reported) Gabapentin (Gabapentin), 100 MG PO BID, (Reported) Meloxicam (Meloxicam), 1 TAB PO DAILY, (Reported) [place]-3 Fatty Acids/Fish Oil (Fish Oil 1,000 Mg Capsule), 1 EACH PO BID, ( Reported) Omeprazole (Omeprazole), 20 MG PO DAILY, (Reported) Scheduled PRN Acetaminophen (Tylenol), 500 MG PO PRN Q6HRS PRN for PAIN, (Reported) Miscellaneous Medications Ferric Citrate (Ferric Citrate), 210 MG PO, (Reported) Discontinued Medications Carbamazepine (Tegretol), 200 MG PO TID PRN PRN for PAIN, (Reported) Fenofibrate (Fenofibrate), 1 TAB PO HS, (Reported) Ferrous Sulfate (Iron Supplement), 1 TAB PO DAILY, (Reported) Ketorolac Tromethamine (Acular), 1 DROP EACHEYE TID, (Reported) Simvastatin (Simvastatin), 40 MG PO HS, (Reported) Time Spent Total time spent with patient [] minutes for coordination of care, counseling, and education. INEZ GRADY MD Jan 11, 2017 12:00
[2017-01-11] MEDS ORDERED: NITROGLYCERIN SUBLINGUAL 0.4 MG BOTTLE OF 25. SL ONE (12:07)
[2017-01-11] MEDS: NITROGLYCERIN SUBLINGUAL 0.4 MG BOTTLE OF 25. SL PRN ×3 (12:09→12:35)
[2017-01-11] MEDS ORDERED: MORPHINE SULFATE 4 MG/ML DISP.SYRIN. IV ONE (12:15)
[2017-01-11] MEDS ORDERED: DIGOXIN IV 500 MCG/2 ML AMPUL. IV ONE ×2 (12:30→18:45)
--- NOTE | 2017-01-11 12:46 | PDOC ---
PROGRESS NOTES Subjective Subjective THE PT WAS GOING TO BE DISCHARGED BUT SHE DEVELOPED CHEST PAINS AND WENT BACK INTO THE A FIB. THE EKG SHOWS ST SEGMENT DEPRESSION THAT IS DIFFUSE. SHE HAS ONGOING CHEST PAIN Objective Objective Vital Signs Date Time Temp Pulse Resp B/P (MAP) Pulse Ox O2 Delivery O2 Flow Rate FiO2 01/11/17 12:35 127 101/39 01/11/17 12:15 20 Room Air 01/11/17 08:31 94 01/11/17 08:00 98.6 98.6 01/09/17 22:31 2.0 Intake and Output 01/11/17 06:59 Intake Total 1130 ml Balance 1130 ml Intake Oral 630 ml IV Total 500 ml # Bowel Movements 2 Physical Exam Physical Exam NO CHANGES IN CARDIAC EXAM EXCEPT FOR THE IRREGULAR RHYTHM Assessment Assessment PT HAVING CHEST PAINS. WE DISCUSSED THE SITUATION AND OPTIONS WELL RISKS. WILL TAKE HER TO THE INSTALLMENT LOAN COLLECTOR FOR A CATH POSS. NOW. Comment Review of Relevant I have reviewed the following items michelle (where applicable) has been applied. Labs Laboratory Tests Test 01/09/17 13:50 01/09/17 19:45 01/11/17 03:30 Troponin I Quantitative 0.803 ng/mL (0.000-0.055) 0.823 ng/mL (0.000-0.055) Sodium Level 136 mmol/L (136-145) Potassium Level 4.3 mmol/L (3.5-5.1) Chloride Level 97 mmol/L (98-107) Carbon Dioxide Level 28 mmol/L (21-32) Anion Gap 11 (6-14) Blood Urea Nitrogen 33 mg/dL (7-20) Creatinine 5.4 mg/dL (0.6-1.0) Estimated GFR (Cockcroft-Gault) 7.8 Glucose Level 110 mg/dL (70-99) Calcium Level 8.5 mg/dL (8.5-10.1) Laboratory Tests Test 01/11/17 03:30 Sodium Level 136 mmol/L (136-145) Potassium Level 4.3 mmol/L (3.5-5.1) Chloride Level 97 mmol/L (98-107) Carbon Dioxide Level 28 mmol/L (21-32) Anion Gap 11 (6-14) Blood Urea Nitrogen 33 mg/dL (7-20) Creatinine 5.4 mg/dL (0.6-1.0) Estimated GFR (Cockcroft-Gault) 7.8 Glucose Level 110 mg/dL (70-99) Calcium Level 8.5 mg/dL (8.5-10.1) Medications Current Medications Sodium Chloride 500 ml @ 500 mls/hr 1X ONCE IV Last administered on 06:45; Start 01/09/17 at 06:45; Stop 01/09/17 at 07:44; Status DC Diltiazem HCl (Cardizem) 10 mg 1X ONCE IVP Last administered on 01/09/17 07: 39; Start 01/09/17 at 07:30; Stop 01/09/17 at 07:31; Status DC Diltiazem HCl 125 mg/Dextrose 125 ml @ 0 mls/hr CONT PRN IV SEE I/O RECORD Last administered on 01/09/17 07:40; Start 01/09/17 at 07:30 Aspirin (Children'S Aspirin) 324 mg 1X ONCE PO Last administered on 01/09/17 08:15; Start 01/09/17 at 07:45; Stop 01/09/17 at 07:46; Status DC Darbepoetin Jerome (Aranesp) 60 mcg WEEKLYHS SQ Last administered on 01/09/17 21 :31; Start 01/09/17 at 21:00 Albumin Human 500 ml @ 125 mls/hr 1X ONCE IV Last administered on 01/09/17 13:02; Start 01/09/17 at 13:00; Stop 01/09/17 at 16:59; Status DC Albumin Human 500 ml @ 125 mls/hr 1X ONCE IV Last administered on 01/09/17 16:35; Start 01/09/17 at 16:00; Stop 01/09/17 at 19:59; Status DC Digoxin (Lanoxin) 500 mcg 1X ONCE IV Last administered on 01/09/17 13:03; Start 01/09/17 at 13:00; Stop 01/09/17 at 13:01; Status DC Sodium Chloride 1,000 ml @ 1,000 mls/hr Q1H PRN IV hypotension; Start 01/09/17 at 16:31; Stop 01/09/17 at 22:30; Status DC Sodium Chloride 1,000 ml @ 400 mls/hr Q2H30M PRN IV PATENCY; Start 01/09/17 at 16:31; Stop 01/10/17 at 04:30; Status DC Info (PHARMACY MONITORING -- do not chart) 1 each PRN DAILY PRN MC SEE COMMENTS ; Start 01/09/17 at 16:45 Fentanyl Citrate (Fentanyl 2ml Vial) 50 mcg PRN Q4HRS PRN IV PAIN Last administered on 01/09/17 17:52; Start 01/09/17 at 18:00 Oxycodone/ Acetaminophen (Percocet 5/325) 1 tab PRN Q4HRS PRN PO PAIN Last administered on 01/11/17 08:31; Start 01/09/17 at 18:00 Fentanyl Citrate (Fentanyl 2ml Vial) 50 mcg 1X ONCE IM ; Start 01/09/17 at 20: 00; Stop 01/09/17 at 20:01; Status Cancel Fentanyl Citrate (Fentanyl 2ml Vial) 50 mcg 1X ONCE IV Last administered on 19:57; Start 01/09/17 at 20:00; Stop 01/09/17 at 20:01; Status DC Allopurinol (Zyloprim) 100 mg DAILY PO Last administered on 01/10/17 14:58; Start 01/10/17 at 14:30 Aspirin (Ecotrin) 81 mg DAILY PO Last administered on 01/10/17 14:58; Start at 14:30 Atenolol (Tenormin) 50 mg DAILY PO Last administered on 01/10/17 14:58; Start 01/10/17 at 14:30 Calcium Acetate (Phoslo) 2,001 mg TIDWMEALS PO Last administered on 01/10/17 17:34; Start 01/10/17 at 17:00 Vitamin B Complex/ Vitamin C ([place]-Ray) 1 tab HS PO Last administered on 21:20; Start 01/10/17 at 21:00 Gabapentin (Neurontin) 100 mg BID PO Last administered on 01/10/17 21:20; Start 01/10/17 at 14:30 Meloxicam (Mobic) 7.5 mg DAILY PO Last administered on 01/10/17 14:58; Start 01/10/17 at 14:30 Fish Oil (Fish Oil) 1,000 mg DAILY PO ; Start 01/11/17 at 09:00 Pantoprazole Sodium (Protonix) 40 mg DAILYAC PO Last administered on 01/10/17 14:58; Start 01/10/17 at 14:30 Digoxin (Lanoxin) 500 mcg 1X ONCE IV Last administered on 01/10/17 15:23; Start 01/10/17 at 15:30; Stop 01/10/17 at 15:31; Status DC Albumin Human 500 ml @ 125 mls/hr 1X ONCE IV Last administered on 01/10/17 15:22; Start 01/10/17 at 15:15; Stop 01/10/17 at 19:14; Status DC Lidocaine HCl (Xylocaine-Mpf 1% Vial) 2 ml STK-MED ONCE .ROUTE ; Start 01/11/17 at 08:47; Stop 01/11/17 at 08:48; Status DC Sodium Chloride 1,000 ml @ 1,000 mls/hr Q1H PRN IV hypotension; Start 01/11/17 at 08:55; Stop 01/11/17 at 14:54 Albumin Human 200 ml @ 200 mls/hr 1X PRN PRN IV Hypotension; Start 01/11/17 at 09:00; Stop 01/11/17 at 14:59 Acetaminophen (Tylenol) 500 mg 1X PRN PRN PO MILD PAIN / TEMP; Start 01/11/17 at 09:00; Stop 01/12/17 at 08:59 Diphenhydramine HCl (Benadryl) 25 mg 1X PRN PRN IV ITCHING; Start 01/11/17 at 09:00; Stop 01/12/17 at 08:59 Info (PHARMACY MONITORING -- do not chart) 1 each PRN DAILY PRN MC SEE COMMENTS ; Start 01/11/17 at 09:00 Lidocaine HCl (Xylocaine-Mpf 1% Vial) 2 ml 1X ONCE INJ Last administered on 10:01; Start 01/11/17 at 09:00; Stop 01/11/17 at 09:02; Status DC Albumin Human 500 ml @ 125 mls/hr 1X ONCE IV Last administered on 01/11/17 11:50; Start 01/11/17 at 11:45; Stop 01/11/17 at 15:44 Nitroglycerin (Nitrostat) 0.4 mg STK-MED ONCE SL ; Start 01/11/17 at 12:07; Stop 01/11/17 at 12:08; Status DC Nitroglycerin (Nitrostat) 0.4 mg PRN Q5MIN PRN SL CHEST PAIN Last administered on 01/11/17 12:35; Start 01/11/17 at 12:15 Morphine Sulfate 3 mg 1X ONCE IV Last administered on 01/11/17 12:15; Start 01/11/17 at 12:15; Stop 01/11/17 at 12:16; Status DC Digoxin (Lanoxin) 250 mcg 1X ONCE IV Last administered on 01/11/17 12:34; Start 01/11/17 at 12:30; Stop 01/11/17 at 12:31; Status DC Active Scripts Active Reported Ferric Citrate 210 Mg Tablet 210 Mg PO Meloxicam 7.5 Mg Tablet 1 Tab PO DAILY Atenolol 50 Mg Tablet 1 Tab PO DAILY Tylenol (Acetaminophen) 325 Mg Tablet 500 Mg PO PRN Q6HRS PRN Aspir 81 (Aspirin) 81 Mg Tablet.dr 1 Tab PO DAILY Fish Oil 1,000 Mg Capsule ([place]-3 Fatty Acids/Fish Oil) 1 Each Capsule 1 Each PO BID Vitamin D2 (Ergocalciferol (Vitamin D2)) 50,000 Unit Capsule 50,000 Unit PO WEEKLY Allopurinol 100 Mg Tablet 1 Tab PO DAILY Nephro-Ray Tablet (Folic Acid/Vitamin B Comp W-C) 0.8 Mg Tablet 1 Tab PO HS Gabapentin 100 Mg Capsule 100 Mg PO BID Omeprazole 20 Mg Capsule.dr 20 Mg PO DAILY Calcium Acetate 667 Mg Capsule 2,001 Mg PO TIDWMEALS Vitals/I & O Vital Sign - Last 24 Hours 01/10/17 01/10/17 01/10/17 01/10/17 13:00 14:58 14:58 15:23 Pulse 60 62 143 Resp 23 B/P (MAP) 109/36 (60) 120/56 120/56 Pulse Ox 95 O2 Delivery Room Air Room Air 01/10/17 01/10/17 01/10/17 01/10/17 16:00 20:00 21:21 22:33 Temp 98.5 98.4 98.5 98.4 Pulse 124 110 Resp 18 23 28 13 B/P (MAP) 116/51 (72) 112/49 (70) Pulse Ox 94 93 93 O2 Delivery Room Air Room Air Room Air Room Air 01/11/17 01/11/17 01/11/17 01/11/17 00:00 04:00 08:00 08:00 Temp 98.9 99.0 98.6 98.9 99.0 98.6 Pulse 107 106 102 Resp 15 17 17 B/P (MAP) 105/67 (80) 119/38 (65) 118/91 (100) Pulse Ox 94 94 94 O2 Delivery Room Air Room Air Room Air Room Air 01/11/17 01/11/17 01/11/17 01/11/17 08:31 12:09 12:15 12:19 Pulse 99 142 Resp 20 20 B/P (MAP) 112/45 112/45 Pulse Ox 94 O2 Delivery Room Air Room Air 01/11/17 01/11/17 12:34 12:35 Pulse 130 127 B/P (MAP) 101/39 101/39 Intake and Output 01/10/17 01/10/17 01/11/17 14:59 22:59 06:59 Intake Total 290 ml 840 ml 0 ml Balance 290 ml 840 ml 0 ml INEZ GRADY MD Jan 11, 2017 12:46
--- NOTE | 2017-01-11 12:47 | PDOC ---
MODERATE SEDATION ASSESSMENT RISKS/ALTERNATIVES Risks/Alternatives Risks and alternatives of this type of sedation and procedure discussed with: RISK/ALTERNATIVES: Patient H & P ON CHART H & P H & P on chart and reviewed for co-morbid conditions and appropriate labs. H&P ON CHART: Yes STATUS PREG STATUS ASSESSED: Yes MEDS/ALLERGIES REVIEWED Meds/Allergies Reviewed Medications and Allergies including time and route of recently administered narcotics and sedatives. MEDS/ALLERGIES REVIEWED: Yes ASA RATING ASA RATING: II AIRWAY ASSESSMENT Airway Assessment Airway patency, oral function limitations, presence of caps, crowns, dentures, partials, and ability to extend neck assessed. AIRWAY ASSESSMENT: Yes MALLAMPATI SCORE MALLAMPATI SCORE: II PRE-SEDATION ASSESSMENT PRE-SEDATION ASSESSMENT: Yes INEZ GRADY MD Jan 11, 2017 12:47
--- NOTE | 2017-01-11 12:48 | EKG ---
[facility] [address] [place] [address] Test Date: 2017-01-11 Test Time: 12:35:38 Pat Name: JATINDER ARRIETA Department: Room: 111 1 Gender: F Case Management Rn: ODESSA : 1945 Requested By: INEZ GRADY Order Number: [id number] Reading MD: Blas Lowe Measurements Intervals [place] Rate: 124 P: DC: QRS: 123 QRSD: 122 T: -62 QT: 320 QTc: 464 Interpretive Statements ATRIAL FIBRILLATION WITH RVR RBBB SUSPECT PRIOR LATERAL INFARCT Electronically Signed On 01-13-2017 11:54:52 CDT by Blas Lowe
[2017-01-11] MEDS ORDERED: MIDAZOLAM HCL/PF 5 MG/5 ML VIAL. ONE (13:07)
[2017-01-11] MEDS ORDERED: fentaNYL PF VIAL 250 MCG/5 ML VIAL ONE (13:07)
[2017-01-11] MEDS ORDERED: IOHEXOL 350 MG/ML 100 ML VIAL. ONE (13:08)
[2017-01-11] MEDS ORDERED: LIDOCAINE 2% 20 ML VIAL. ONE (13:09)
[2017-01-11] MEDS ORDERED: LIDOCAINE 2% 20 ML VIAL. IJ ONE (13:45)
[2017-01-11] MEDS ORDERED: MIDAZOLAM HCL/PF 5 MG/5 ML VIAL. IV ONE (13:45)
[2017-01-11] MEDS ORDERED: fentaNYL PF VIAL 250 MCG/5 ML VIAL IV ONE (13:45)
[2017-01-11] MEDS ORDERED: IOHEXOL 350 MG/ML 100 ML VIAL. IART ONE (13:45)
--- NOTE | 2017-01-11 13:59 | PDOC4 ---
PROCEDURE Procedure PROCEDURE NOTE L HEART CATH DONE VIA R GROIN. FINDINGS: LM NORMAL LAD NORMAL CX CODOMINANT, NORMAL RCA NORMAL VENTRICULOGRAM: LV EF 65%, LVEDP: 18 MMHG IMP: NO SIGNIFICANT CAD. NONCARDIAC CHEST PAIN. WILL GET CT OF THE THORACIC AND CERVICAL SPINE. RECOMMEND MEDICAL TX FOR THE RHYTHM. PT TOLERATED THE PROCEDURE WELL. INEZ GRADY MD Jan 11, 2017 13:58
[2017-01-11] MEDS ORDERED: CONTRAST GIVEN MC PRN (14:00)
[2017-01-11] MEDS ORDERED: ALBUMIN HUMAN 5% 250 ML IV ONE (14:15)
[2017-01-11] MEDS: OMEGA-3 FATTY ACIDS/FISH OIL 1,000 MG CAPSULE. PO SCH (15:05)
[2017-01-11] MEDS: PANTOPRAZOLE 40 MG TABLET.DR. PO SCH (15:05)
[2017-01-11] MEDS: ASPIRIN ENTERIC COATED 81 MG TABLET.DR. PO SCH (15:05)
[2017-01-11] MEDS: ALLOPURINOL 100 MG TABLET. PO SCH (15:05)
[2017-01-11] MEDS: MELOXICAM 7.5 MG TABLET PO SCH (15:06)
[2017-01-11] MEDS: ONDANSETRON PF 4 MG/2 ML VIAL. IV PRN (18:43)
[2017-01-11] MEDS: FOLIC/VIT B COMP W-C (RENAL) TABLET. PO SCH (20:42)
[2017-01-12] VITALS (21 sets, daily range): BP systolic 51–147; BP diastolic 22–61
[2017-01-12] MEDS: CALCIUM ACETATE 667 MG CAPSULE PO SCH ×3 (08:00→18:10)
[2017-01-12] MEDS: ASPIRIN ENTERIC COATED 81 MG TABLET.DR. PO SCH (09:08)
[2017-01-12] MEDS: PANTOPRAZOLE 40 MG TABLET.DR. PO SCH (09:08)
[2017-01-12] MEDS: OMEGA-3 FATTY ACIDS/FISH OIL 1,000 MG CAPSULE. PO SCH (09:08)
[2017-01-12] MEDS: ATENOLOL 50 MG TABLET. PO SCH (09:09)
[2017-01-12] MEDS: GABAPENTIN 100 MG CAPSULE. PO SCH ×2 (09:09→20:41)
[2017-01-12] MEDS: MELOXICAM 7.5 MG TABLET PO SCH (09:10)
[2017-01-12] MEDS: ALLOPURINOL 100 MG TABLET. PO SCH (09:10)
--- NOTE | 2017-01-12 11:21 | RAD ---
CT cervical spine 01/12/2017 Clinical indication: Neck pain and back pain. Comparison: None. Technique: Multiple CT images were obtained of the cervical spine according to standard protocol. Coronal and sagittal reformations were obtained from the axial image data set. PQRS Compliance Statement: One or more of the following individualized dose reduction techniques were utilized for this examination: 1. Automated exposure control 2. Adjustment of the mA and/or kV according to patient size 3. Use of iterative reconstruction technique Findings: Cervical spine: No acute cervical spine fracture or subluxation. The vertebral body heights are maintained. There is multilevel cervical disc degeneration with disc space narrowing, endplate sclerosis and marginal osteophyte formation greatest to moderate degree at C5-C6 and C6-C7. Disc degeneration, uncovertebral hypertrophy and moderate facet hypertrophy results in moderate right neural foraminal narrowing at C5-C6. There is partial visualization of transit venous subclavian wires. The exam is not optimized for evaluation of spinal canal narrowing. There are prominent anterior bridging osteophytes C6-T2. There is diffuse calcified atheromatous disease throughout the proximal bilateral internal carotid arteries. Lung apices are clear. Impression: 1. No acute cervical spine fracture or subluxation. 2. Multilevel cervical spondylosis resulting in moderate right neural foraminal stenosis at C5-C6. 3. The exam is not optimized for evaluation of spinal canal narrowing. If there is continued clinical concern, MRI cervical spine could be obtained.
--- NOTE | 2017-01-12 11:32 | RAD ---
CT thoracic spine without contrast 01/12/2017 Clinical indication: Neck pain. Comparison: None. Technique: Multiple CT images of the thoracic spine were obtained without contrast according to standard protocol. Coronal and sagittal reformations were obtained. PQRS Compliance Statement: One or more of the following individualized dose reduction techniques were utilized for this examination: 1. Automated exposure control 2. Adjustment of the mA and/or kV according to patient size 3. Use of iterative reconstruction technique Findings: Thoracic spine: There are anterior flowing osteoids throughout the thoracic spine compatible with Tis age. There is diffuse bony demineralization which limits evaluations for subtle fractures. Within these limitations. No acute thoracic spine fracture or subluxation. Vertebral body heights are maintained. There is mild rightward curvature of the thoracic spine which may be positional. There is no significant spinal canal or neuroforaminal narrowing. There are small bilateral pleural effusions and adjacent atelectasis may visualized dependent lungs. Coronary artery calcifications noted. Diffuse calcified atheromatous disease of the thoracic aorta including the origin of the great vessels with luminal patency is not evaluated due to lack of intravenous contrast. 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 Impression: 1. Diffuse bony demineralization which limits evaluation for subtle fractures. 2. Within these limitations, no acute thoracic spine fracture or subluxation. 3. Diffuse anterior flowing osteophytes of the thoracic spine compatible with DISH. 4. Small bilateral pleural effusions and dependent atelectasis.
--- NOTE | 2017-01-12 15:23 | CARD ---
APPROVED REPORT Procedure(s) performed: Sedation Time: 22 min HISTORY previous CHF: chronic lung disease, hypertension, dyslipidemia. INDICATION The indication(s) include : unstable angina , chest pain, abnormal ECG, atrial fibrillation. CASE TECHNIQUE The patient was brought emergently into the cardiac catheterization lab. A timeout was performed conf irming the patient's name, date of , procedure, and site of procedure. All necessary parties wer e wearing the appropriate personal protective equipment and radiation monitoring devices. After expla ining the risks and benefits of the procedure, informed consent was obtained.(See nursing notes for m edications administered). The right groin was sterilely prepped and draped. The right femoral groin w as infiltrated with 2% Lidocaine subcutaneous anesthesia. During this case, Fluoroscopy and low osmol ar contrast were used for imaging. A sheath was inserted into the right femoral artery without diffic ulty. Coronary angiography was performed using coronary diagnostic catheters. The left coronary syste m was accessed and visualized with a Diagnostic catheter. The right coronary system was accessed and visualized with a Diagnostic catheter. The left ventricle was accessed and visualized with a Diagnost ic catheter. Left ventricular/Aortic Valve gradient assessed on pullback. Left ventriculogram was per formed in GUERRERO projection. Pre-demployment femoral angiogram was performed . Closure device was deploy ed with a Angioseal without any complications. The patient tolerated the procedure well and there wer e no complications associated with the procedure. Coronary Angiography The patient's coronary anatomy is co-dominant. The left main coronary artery is a large size vessel free of disease. The left main bifurcates to the left anterior descending and circumflex. The left anterior descending artery is a large size vessel free of disease. The first diagonal branch is a medium size vessel free of disease. The second diagonal branch is a small size vessel free of d isease. The third diagonal branch is a small size vessel free of disease. The circumflex artery is a large size vessel free of disease. The first obtuse marginal branch is a s mall size vessel free of disease. The second obtuse marginal branch is a medium size vessel free of d isease. The third obtuse marginal branch is a small size vessel free of disease. The right coronary artery is a medium size vessel free of disease. The right posterior descending art jed is a small size vessel free of disease. The right posterolateral branch is a small size vessel fr ee of disease. Left Ventriculography The left ventricle is normal in size with normal contractility. The left ventricular ejection fractio n is estimated to be 65%. The left ventricular end diastolic pressure is 18 mmHg. There was no gradie nt across the aortic valve upon pullback. Conclusion This pt has no significant CAD. Noncardiac chest pain. Recommendations Medical Therapy
--- NOTE | 2017-01-12 15:28 | PDOC ---
PROGRESS NOTES Subjective Subjective Patient is not having chest pain at this time. She has a very poor appetite. Continues to be in atrial fibrillation and her blood pressure is low Objective Objective Vital Signs Date Time Temp Pulse Resp B/P (MAP) Pulse Ox O2 Delivery O2 Flow Rate FiO2 01/12/17 12:00 110 16 110/56 (74) 98 Nasal Cannula 2.0 01/12/17 12:00 98.2 98.2 Intake and Output 01/12/17 07:00 Intake Total 1330 ml Output Total 0 ml Balance 1330 ml Intake Oral 270 ml IV Total 1060 ml Output Urine Total 0 ml Physical Exam Physical Exam No significant changes and cardiac exam Assessment Assessment To me the patient appears to be intravascularly depleted. I will give her more fluids and I'm going to DC the atenolol and start her on Rhythmol 75 mg by mouth twice a day. If the Rhythmol does not controlled the rhythm may need to go with amiodarone. Comment Review of Relevant I have reviewed the following items michelle (where applicable) has been applied. Labs Laboratory Tests Test 01/11/17 03:30 Sodium Level 136 mmol/L (136-145) Potassium Level 4.3 mmol/L (3.5-5.1) Chloride Level 97 mmol/L (98-107) Carbon Dioxide Level 28 mmol/L (21-32) Anion Gap 11 (6-14) Blood Urea Nitrogen 33 mg/dL (7-20) Creatinine 5.4 mg/dL (0.6-1.0) Estimated GFR (Cockcroft-Gault) 7.8 Glucose Level 110 mg/dL (70-99) Calcium Level 8.5 mg/dL (8.5-10.1) Medications Current Medications Sodium Chloride 500 ml @ 500 mls/hr 1X ONCE IV Last administered on 06:45; Start 01/09/17 at 06:45; Stop 01/09/17 at 07:44; Status DC Diltiazem HCl (Cardizem) 10 mg 1X ONCE IVP Last administered on 01/09/17 07: 39; Start 01/09/17 at 07:30; Stop 01/09/17 at 07:31; Status DC Diltiazem HCl 125 mg/Dextrose 125 ml @ 0 mls/hr CONT PRN IV SEE I/O RECORD Last administered on 01/09/17 07:40; Start 01/09/17 at 07:30 Aspirin (Children'S Aspirin) 324 mg 1X ONCE PO Last administered on 01/09/17 08:15; Start 01/09/17 at 07:45; Stop 01/09/17 at 07:46; Status DC Darbepoetin Jerome (Aranesp) 60 mcg WEEKLYHS SQ Last administered on 01/09/17 21 :31; Start 01/09/17 at 21:00 Albumin Human 500 ml @ 125 mls/hr 1X ONCE IV Last administered on 01/09/17 13:02; Start 01/09/17 at 13:00; Stop 01/09/17 at 16:59; Status DC Albumin Human 500 ml @ 125 mls/hr 1X ONCE IV Last administered on 01/09/17 16:35; Start 01/09/17 at 16:00; Stop 01/09/17 at 19:59; Status DC Digoxin (Lanoxin) 500 mcg 1X ONCE IV Last administered on 01/09/17 13:03; Start 01/09/17 at 13:00; Stop 01/09/17 at 13:01; Status DC Sodium Chloride 1,000 ml @ 1,000 mls/hr Q1H PRN IV hypotension; Start 01/09/17 at 16:31; Stop 01/09/17 at 22:30; Status DC Sodium Chloride 1,000 ml @ 400 mls/hr Q2H30M PRN IV PATENCY; Start 01/09/17 at 16:31; Stop 01/10/17 at 04:30; Status DC Info (PHARMACY MONITORING -- do not chart) 1 each PRN DAILY PRN MC SEE COMMENTS ; Start 01/09/17 at 16:45; Status Cancel Fentanyl Citrate (Fentanyl 2ml Vial) 50 mcg PRN Q4HRS PRN IV PAIN Last administered on 01/09/17 17:52; Start 01/09/17 at 18:00 Oxycodone/ Acetaminophen (Percocet 5/325) 1 tab PRN Q4HRS PRN PO PAIN Last administered on 01/11/17 08:31; Start 01/09/17 at 18:00 Fentanyl Citrate (Fentanyl 2ml Vial) 50 mcg 1X ONCE IM ; Start 01/09/17 at 20: 00; Stop 01/09/17 at 20:01; Status Cancel Fentanyl Citrate (Fentanyl 2ml Vial) 50 mcg 1X ONCE IV Last administered on 19:57; Start 01/09/17 at 20:00; Stop 01/09/17 at 20:01; Status DC Allopurinol (Zyloprim) 100 mg DAILY PO Last administered on 01/12/17 09:10; Start 01/10/17 at 14:30 Aspirin (Ecotrin) 81 mg DAILY PO Last administered on 01/12/17 09:08; Start at 14:30 Atenolol (Tenormin) 50 mg DAILY PO Last administered on 01/12/17 09:09; Start 01/10/17 at 14:30; Stop 01/12/17 at 14:50; Status DC Calcium Acetate (Phoslo) 2,001 mg TIDWMEALS PO Last administered on 01/12/17 12:55; Start 01/10/17 at 17:00 Vitamin B Complex/ Vitamin C (Tsering-Ray) 1 tab HS PO Last administered on 20:42; Start 01/10/17 at 21:00 Gabapentin (Neurontin) 100 mg BID PO Last administered on 01/12/17 09:09; Start 01/10/17 at 14:30 Meloxicam (Mobic) 7.5 mg DAILY PO Last administered on 01/12/17 09:10; Start 01/10/17 at 14:30 Fish Oil (Fish Oil) 1,000 mg DAILY PO Last administered on 01/12/17 09:08; Start 01/11/17 at 09:00 Pantoprazole Sodium (Protonix) 40 mg DAILYAC PO Last administered on 01/12/17 09:08; Start 01/10/17 at 14:30 Digoxin (Lanoxin) 500 mcg 1X ONCE IV Last administered on 01/10/17 15:23; Start 01/10/17 at 15:30; Stop 01/10/17 at 15:31; Status DC Albumin Human 500 ml @ 125 mls/hr 1X ONCE IV Last administered on 01/10/17 15:22; Start 01/10/17 at 15:15; Stop 01/10/17 at 19:14; Status DC Lidocaine HCl (Xylocaine-Mpf 1% Vial) 2 ml STK-MED ONCE .ROUTE ; Start 01/11/17 at 08:47; Stop 01/11/17 at 08:48; Status DC Sodium Chloride 1,000 ml @ 1,000 mls/hr Q1H PRN IV hypotension; Start 01/11/17 at 08:55; Stop 01/11/17 at 14:54; Status DC Albumin Human 200 ml @ 200 mls/hr 1X PRN PRN IV Hypotension; Start 01/11/17 at 09:00; Stop 01/11/17 at 14:59; Status DC Acetaminophen (Tylenol) 500 mg 1X PRN PRN PO MILD PAIN / TEMP; Start 01/11/17 at 09:00; Stop 01/12/17 at 08:59; Status DC Diphenhydramine HCl (Benadryl) 25 mg 1X PRN PRN IV ITCHING Last administered on 01/11/17 13:30; Start 01/11/17 at 09:00; Stop 01/12/17 at 08:59; Status DC Info (PHARMACY MONITORING -- do not chart) 1 each PRN DAILY PRN MC SEE COMMENTS ; Start 01/11/17 at 09:00 Lidocaine HCl (Xylocaine-Mpf 1% Vial) 2 ml 1X ONCE INJ Last administered on 10:01; Start 01/11/17 at 09:00; Stop 01/11/17 at 09:02; Status DC Albumin Human 500 ml @ 125 mls/hr 1X ONCE IV Last administered on 01/11/17 11:50; Start 01/11/17 at 11:45; Stop 01/11/17 at 15:44; Status DC Nitroglycerin (Nitrostat) 0.4 mg STK-MED ONCE SL ; Start 01/11/17 at 12:07; Stop 01/11/17 at 12:08; Status DC Nitroglycerin (Nitrostat) 0.4 mg PRN Q5MIN PRN SL CHEST PAIN Last administered on 01/11/17 12:35; Start 01/11/17 at 12:15 Morphine Sulfate 3 mg 1X ONCE IV Last administered on 01/11/17 12:15; Start 01/11/17 at 12:15; Stop 01/11/17 at 12:16; Status DC Digoxin (Lanoxin) 250 mcg 1X ONCE IV Last administered on 01/11/17 12:34; Start 01/11/17 at 12:30; Stop 01/11/17 at 12:31; Status DC Fentanyl Citrate (Fentanyl 5ml Vial) 250 mcg STK-MED ONCE .ROUTE ; Start at 13:07; Stop 01/11/17 at 13:08; Status DC Midazolam HCl (Versed) 5 mg STK-MED ONCE .ROUTE ; Start 01/11/17 at 13:07; Stop 01/11/17 at 13:08; Status DC Iohexol (Omnipaque 350 Mg/ml) 100 ml STK-MED ONCE .ROUTE ; Start 01/11/17 at 13: 08; Stop 01/11/17 at 13:09; Status DC Heparin Sodium/ Sodium Chloride 500 ml @ As Directed STK-MED ONCE .ROUTE ; Start 01/11/17 at 13:09; Stop 01/11/17 at 13:10; Status DC Lidocaine HCl 20 ml STK-MED ONCE .ROUTE ; Start 01/11/17 at 13:09; Stop at 13:10; Status DC Heparin Sodium/ Sodium Chloride 1,000 unit 1X ONCE IART Last administered on 13:50; Start 01/11/17 at 13:45; Stop 01/11/17 at 13:46; Status DC Midazolam HCl (Versed) 1 mg 1X ONCE IV Last administered on 01/11/17 13:51; Start 01/11/17 at 13:45; Stop 01/11/17 at 13:46; Status DC Fentanyl Citrate (Fentanyl 5ml Vial) 50 mcg 1X ONCE IV Last administered on 13:51; Start 01/11/17 at 13:45; Stop 01/11/17 at 13:46; Status DC Iohexol (Omnipaque 350 Mg/ml) 81 ml 1X ONCE IART Last administered on 13:51; Start 01/11/17 at 13:45; Stop 01/11/17 at 13:46; Status DC Lidocaine HCl 12 ml 1X ONCE IJ Last administered on 01/11/17 13:50; Start at 13:45; Stop 01/11/17 at 13:46; Status DC Info (Do NOT chart on this entry -- for MONITORING) 1 each PRN DAILY PRN MC SEE COMMENTS; Start 01/11/17 at 14:00; Stop 01/13/17 at 13:59 Albumin Human 250 ml @ 62.5 mls/hr 1X ONCE IV Last administered on 01/11/17 14:15; Start 01/11/17 at 14:15; Stop 01/11/17 at 18:14; Status DC Digoxin (Lanoxin) 250 mcg 1X ONCE IV Last administered on 01/11/17 19:02; Start 01/11/17 at 18:45; Stop 01/11/17 at 18:46; Status DC Ondansetron HCl (Zofran) 8 mg PRN Q6HRS PRN IV NAUSEA/VOMITING Last administered on 01/11/17 18:43; Start 01/11/17 at 18:45 Enoxaparin Sodium (Lovenox 100mg Syringe) 90 mg Q24H SQ Last administered on 20:42; Start 01/11/17 at 20:00 Propafenone HCl (Rythmol) 75 mg BID PO ; Start 01/12/17 at 21:00 Active Scripts Active Reported Ferric Citrate 210 Mg Tablet 210 Mg PO Meloxicam 7.5 Mg Tablet 1 Tab PO DAILY Atenolol 50 Mg Tablet 1 Tab PO DAILY Tylenol (Acetaminophen) 325 Mg Tablet 500 Mg PO PRN Q6HRS PRN Aspir 81 (Aspirin) 81 Mg Tablet. 1 Tab PO DAILY Fish Oil 1,000 Mg Capsule ([place]-3 Fatty Acids/Fish Oil) 1 Each Capsule 1 Each PO BID Vitamin D2 (Ergocalciferol (Vitamin D2)) 50,000 Unit Capsule 50,000 Unit PO WEEKLY Allopurinol 100 Mg Tablet 1 Tab PO DAILY Nephro-Ray Tablet (Folic Acid/Vitamin B Comp W-C) 0.8 Mg Tablet 1 Tab PO HS Gabapentin 100 Mg Capsule 100 Mg PO BID Omeprazole 20 Mg Capsule. 20 Mg PO DAILY Calcium Acetate 667 Mg Capsule 2,001 Mg PO TIDWMEALS Vitals/I & O Vital Sign - Last 24 Hours 01/11/17 01/11/17 01/11/17 01/11/17 15:30 16:00 19:00 19:02 Pulse 114 108 114 125 Resp 18 20 19 B/P (MAP) 97/48 (64) 95/35 (55) 117/45 (69) 100/36 Pulse Ox 94 90 97 O2 Delivery Room Air Room Air Nasal Cannula O2 Flow Rate 2.0 01/11/17 01/11/17 01/12/17 01/12/17 20:00 20:00 00:00 04:00 Temp 98.7 98.5 97.8 98.7 98.5 97.8 Pulse 96 96 96 Resp 17 18 10 B/P (MAP) 106/38 (60) 108/40 (62) 103/41 (61) Pulse Ox 98 100 100 O2 Delivery Room Air Nasal Cannula Nasal Cannula Nasal Cannula O2 Flow Rate 2.0 2.0 2.0 01/12/17 01/12/17 01/12/17 01/12/17 08:00 08:00 09:09 12:00 Temp 98.3 98.2 98.3 98.2 Pulse 106 117 Resp 18 B/P (MAP) 108/49 (68) 100/55 Pulse Ox 99 O2 Delivery Room Air Room Air O2 Flow Rate 2.0 01/12/17 12:00 Pulse 110 Resp 16 B/P (MAP) 110/56 (74) Pulse Ox 98 O2 Delivery Nasal Cannula O2 Flow Rate 2.0 Intake and Output 01/11/17 01/11/17 01/12/17 15:00 23:00 07:00 Intake Total 30 ml 1290 ml 10 ml Output Total 0 ml Balance 30 ml 1290 ml 10 ml INEZ GRADY MD Jan 12, 2017 15:28
[2017-01-12] MEDS: NOREPINEPHRIN PREMIX 250 ML IV PRN ×2 (15:54→20:42)
[2017-01-12] MEDS: FOLIC/VIT B COMP W-C (RENAL) TABLET. PO SCH (20:41)
[2017-01-12] MEDS: PROPAFENONE 150 MG TABLET. PO SCH (20:42)
--- NOTE | 2017-01-12 23:44 | PDOC4 ---
PROCEDURE Procedure RENAL DIALYSIS / NASRA DOS : 01/11/17 HD done F 180/HCO3/3K Qb 450 Qd 600 UF 1-2 kg No complications. CURT HAMMONDS MD Jan 12, 2017 23:44
--- NOTE | 2017-01-12 23:45 | PDOC ---
Provider Note Provider Note RENAL F/U : NASRA S : Doing OK No new issues. O : VSS Afberile BP low stable Alert No distress Neck : Supple Lungs : Non labored CVS : RRR Abd : Soft, no masses Ext : Trace edema Labs and meds reviewed. A/P: ESRD HYPOTENSION ARRHYTHMIAS Labs stable BP slightly better HD Friday IVF as needed. CATH neg d/w pt, family and CURT German MD Jan 12, 2017 23:45
[2017-01-13] VITALS (26 sets, daily range): BP systolic 76–127; BP diastolic 31–53
[2017-01-13] MEDS: ASPIRIN ENTERIC COATED 81 MG TABLET.DR. PO SCH (08:48)
[2017-01-13] MEDS: PANTOPRAZOLE 40 MG TABLET.DR. PO SCH (08:48)
[2017-01-13] MEDS: CALCIUM ACETATE 667 MG CAPSULE PO SCH ×3 (08:49→17:23)
[2017-01-13] MEDS: OMEGA-3 FATTY ACIDS/FISH OIL 1,000 MG CAPSULE. PO SCH (08:49)
[2017-01-13] MEDS: MELOXICAM 7.5 MG TABLET PO SCH (08:49)
[2017-01-13] MEDS: ALLOPURINOL 100 MG TABLET. PO SCH (08:49)
[2017-01-13] MEDS: GABAPENTIN 100 MG CAPSULE. PO SCH ×2 (08:50→20:05)
[2017-01-13] MEDS: PROPAFENONE 150 MG TABLET. PO SCH ×2 (09:00→21:00)
--- NOTE | 2017-01-13 09:33 | PDOC ---
PROGRESS NOTES Subjective Subjective Continues to be in atrial fibrillation and has low blood pressure. She is lethargic and continues to have poor appetite. Denies chest pain or SOB. Objective Objective Vital Signs Date Time Temp Pulse Resp B/P (MAP) Pulse Ox O2 Delivery O2 Flow Rate FiO2 01/13/17 08:00 Nasal Cannula 2.0 01/13/17 08:00 86 20 104/52 (69) 97 01/13/17 07:30 98.2 98.2 Intake and Output 01/13/17 07:00 Intake Total 753 ml Output Total 0 ml Balance 753 ml Intake Oral 480 ml IV Total 273 ml Output Urine Total 0 ml Physical Exam Physical Exam No significant changes to cardiac exam. Assessment Assessment Problems Medical Problems: (1) Non-STEMI (non-ST elevated myocardial infarction) Status: Acute Plan Plan of Care 1. Atrial fibrillation - Continue Rhythmol for now, if not controlled will consider switching to Amiodarone 2. Hypotension - Current medications reviewed. Start NS 80cc/hr. Continue pressors for now. 3. Lethargy/Anorexia - Check bloodwork: CMP, Ca, Mag, Thyroid levels, CBC, Blood cultures 4. ESRD - Nephrology following, appreciate input 5. Anemia - Nephrology following, patient on Aranesp Dispo: Continue inpatient admission to ICU Comment Review of Relevant I have reviewed the following items michelle (where applicable) has been applied. Medications Current Medications Sodium Chloride 500 ml @ 500 mls/hr 1X ONCE IV Last administered on 06:45; Start 01/09/17 at 06:45; Stop 01/09/17 at 07:44; Status DC Diltiazem HCl (Cardizem) 10 mg 1X ONCE IVP Last administered on 01/09/17 07: 39; Start 01/09/17 at 07:30; Stop 01/09/17 at 07:31; Status DC Diltiazem HCl 125 mg/Dextrose 125 ml @ 0 mls/hr CONT PRN IV SEE I/O RECORD Last administered on 01/09/17 07:40; Start 01/09/17 at 07:30 Aspirin (Children'S Aspirin) 324 mg 1X ONCE PO Last administered on 01/09/17 08:15; Start 01/09/17 at 07:45; Stop 01/09/17 at 07:46; Status DC Darbepoetin Jerome (Aranesp) 60 mcg WEEKLYHS SQ Last administered on 01/09/17 21 :31; Start 01/09/17 at 21:00 Albumin Human 500 ml @ 125 mls/hr 1X ONCE IV Last administered on 01/09/17 13:02; Start 01/09/17 at 13:00; Stop 01/09/17 at 16:59; Status DC Albumin Human 500 ml @ 125 mls/hr 1X ONCE IV Last administered on 01/09/17 16:35; Start 01/09/17 at 16:00; Stop 01/09/17 at 19:59; Status DC Digoxin (Lanoxin) 500 mcg 1X ONCE IV Last administered on 01/09/17 13:03; Start 01/09/17 at 13:00; Stop 01/09/17 at 13:01; Status DC Sodium Chloride 1,000 ml @ 1,000 mls/hr Q1H PRN IV hypotension; Start 01/09/17 at 16:31; Stop 01/09/17 at 22:30; Status DC Sodium Chloride 1,000 ml @ 400 mls/hr Q2H30M PRN IV PATENCY; Start 01/09/17 at 16:31; Stop 01/10/17 at 04:30; Status DC Info (PHARMACY MONITORING -- do not chart) 1 each PRN DAILY PRN MC SEE COMMENTS ; Start 01/09/17 at 16:45; Status Cancel Fentanyl Citrate (Fentanyl 2ml Vial) 50 mcg PRN Q4HRS PRN IV PAIN Last administered on 01/09/17 17:52; Start 01/09/17 at 18:00 Oxycodone/ Acetaminophen (Percocet 5/325) 1 tab PRN Q4HRS PRN PO PAIN Last administered on 01/11/17 08:31; Start 01/09/17 at 18:00 Fentanyl Citrate (Fentanyl 2ml Vial) 50 mcg 1X ONCE IM ; Start 01/09/17 at 20: 00; Stop 01/09/17 at 20:01; Status Cancel Fentanyl Citrate (Fentanyl 2ml Vial) 50 mcg 1X ONCE IV Last administered on 19:57; Start 01/09/17 at 20:00; Stop 01/09/17 at 20:01; Status DC Allopurinol (Zyloprim) 100 mg DAILY PO Last administered on 01/13/17 08:49; Start 01/10/17 at 14:30 Aspirin (Ecotrin) 81 mg DAILY PO Last administered on 01/13/17 08:48; Start at 14:30 Atenolol (Tenormin) 50 mg DAILY PO Last administered on 01/12/17 09:09; Start 01/10/17 at 14:30; Stop 01/12/17 at 14:50; Status DC Calcium Acetate (Phoslo) 2,001 mg TIDWMEALS PO Last administered on 01/13/17 08:49; Start 01/10/17 at 17:00 Vitamin B Complex/ Vitamin C (Tsering-Ray) 1 tab HS PO Last administered on 20:41; Start 01/10/17 at 21:00 Gabapentin (Neurontin) 100 mg BID PO Last administered on 01/13/17 08:50; Start 01/10/17 at 14:30 Meloxicam (Mobic) 7.5 mg DAILY PO Last administered on 01/13/17 08:49; Start 01/10/17 at 14:30 Fish Oil (Fish Oil) 1,000 mg DAILY PO Last administered on 01/13/17 08:49; Start 01/11/17 at 09:00 Pantoprazole Sodium (Protonix) 40 mg DAILYAC PO Last administered on 01/13/17 08:48; Start 01/10/17 at 14:30 Digoxin (Lanoxin) 500 mcg 1X ONCE IV Last administered on 01/10/17 15:23; Start 01/10/17 at 15:30; Stop 01/10/17 at 15:31; Status DC Albumin Human 500 ml @ 125 mls/hr 1X ONCE IV Last administered on 01/10/17 15:22; Start 01/10/17 at 15:15; Stop 01/10/17 at 19:14; Status DC Lidocaine HCl (Xylocaine-Mpf 1% Vial) 2 ml STK-MED ONCE .ROUTE ; Start 01/11/17 at 08:47; Stop 01/11/17 at 08:48; Status DC Sodium Chloride 1,000 ml @ 1,000 mls/hr Q1H PRN IV hypotension; Start 01/11/17 at 08:55; Stop 01/11/17 at 14:54; Status DC Albumin Human 200 ml @ 200 mls/hr 1X PRN PRN IV Hypotension; Start 01/11/17 at 09:00; Stop 01/11/17 at 14:59; Status DC Acetaminophen (Tylenol) 500 mg 1X PRN PRN PO MILD PAIN / TEMP; Start 01/11/17 at 09:00; Stop 01/12/17 at 08:59; Status DC Diphenhydramine HCl (Benadryl) 25 mg 1X PRN PRN IV ITCHING Last administered on 01/11/17 13:30; Start 01/11/17 at 09:00; Stop 01/12/17 at 08:59; Status DC Info (PHARMACY MONITORING -- do not chart) 1 each PRN DAILY PRN MC SEE COMMENTS ; Start 01/11/17 at 09:00 Lidocaine HCl (Xylocaine-Mpf 1% Vial) 2 ml 1X ONCE INJ Last administered on 10:01; Start 01/11/17 at 09:00; Stop 01/11/17 at 09:02; Status DC Albumin Human 500 ml @ 125 mls/hr 1X ONCE IV Last administered on 01/11/17 11:50; Start 01/11/17 at 11:45; Stop 01/11/17 at 15:44; Status DC Nitroglycerin (Nitrostat) 0.4 mg STK-MED ONCE SL ; Start 01/11/17 at 12:07; Stop 01/11/17 at 12:08; Status DC Nitroglycerin (Nitrostat) 0.4 mg PRN Q5MIN PRN SL CHEST PAIN Last administered on 01/11/17 12:35; Start 01/11/17 at 12:15 Morphine Sulfate 3 mg 1X ONCE IV Last administered on 01/11/17 12:15; Start 01/11/17 at 12:15; Stop 01/11/17 at 12:16; Status DC Digoxin (Lanoxin) 250 mcg 1X ONCE IV Last administered on 01/11/17 12:34; Start 01/11/17 at 12:30; Stop 01/11/17 at 12:31; Status DC Fentanyl Citrate (Fentanyl 5ml Vial) 250 mcg STK-MED ONCE .ROUTE ; Start at 13:07; Stop 01/11/17 at 13:08; Status DC Midazolam HCl (Versed) 5 mg STK-MED ONCE .ROUTE ; Start 01/11/17 at 13:07; Stop 01/11/17 at 13:08; Status DC Iohexol (Omnipaque 350 Mg/ml) 100 ml STK-MED ONCE .ROUTE ; Start 01/11/17 at 13: 08; Stop 01/11/17 at 13:09; Status DC Heparin Sodium/ Sodium Chloride 500 ml @ As Directed STK-MED ONCE .ROUTE ; Start 01/11/17 at 13:09; Stop 01/11/17 at 13:10; Status DC Lidocaine HCl 20 ml STK-MED ONCE .ROUTE ; Start 01/11/17 at 13:09; Stop at 13:10; Status DC Heparin Sodium/ Sodium Chloride 1,000 unit 1X ONCE IART Last administered on 13:50; Start 01/11/17 at 13:45; Stop 01/11/17 at 13:46; Status DC Midazolam HCl (Versed) 1 mg 1X ONCE IV Last administered on 01/11/17 13:51; Start 01/11/17 at 13:45; Stop 01/11/17 at 13:46; Status DC Fentanyl Citrate (Fentanyl 5ml Vial) 50 mcg 1X ONCE IV Last administered on 13:51; Start 01/11/17 at 13:45; Stop 01/11/17 at 13:46; Status DC Iohexol (Omnipaque 350 Mg/ml) 81 ml 1X ONCE IART Last administered on 13:51; Start 01/11/17 at 13:45; Stop 01/11/17 at 13:46; Status DC Lidocaine HCl 12 ml 1X ONCE IJ Last administered on 01/11/17 13:50; Start at 13:45; Stop 01/11/17 at 13:46; Status DC Info (Do NOT chart on this entry -- for MONITORING) 1 each PRN DAILY PRN MC SEE COMMENTS; Start 01/11/17 at 14:00; Stop 01/13/17 at 13:59 Albumin Human 250 ml @ 62.5 mls/hr 1X ONCE IV Last administered on 01/11/17 14:15; Start 01/11/17 at 14:15; Stop 01/11/17 at 18:14; Status DC Digoxin (Lanoxin) 250 mcg 1X ONCE IV Last administered on 01/11/17 19:02; Start 01/11/17 at 18:45; Stop 01/11/17 at 18:46; Status DC Ondansetron HCl (Zofran) 8 mg PRN Q6HRS PRN IV NAUSEA/VOMITING Last administered on 01/11/17 18:43; Start 01/11/17 at 18:45 Enoxaparin Sodium (Lovenox 100mg Syringe) 90 mg Q24H SQ Last administered on 20:42; Start 01/11/17 at 20:00 Propafenone HCl (Rythmol) 75 mg BID PO Last administered on 01/12/17 20:42; Start 01/12/17 at 21:00 Norepinephrine Bitartrate 250 ml @ 0 mls/hr CONT PRN IV SEE I/O RECORD Last administered on 01/12/17 20:42; Start 01/12/17 at 15:45 Info (Anti-Coagulation Monitoring By Pharmacy) 1 each PRN DAILY PRN MC SEE COMMENTS; Start 01/13/17 at 09:00 Active Scripts Active Reported Ferric Citrate 210 Mg Tablet 210 Mg PO Meloxicam 7.5 Mg Tablet 1 Tab PO DAILY Atenolol 50 Mg Tablet 1 Tab PO DAILY Tylenol (Acetaminophen) 325 Mg Tablet 500 Mg PO PRN Q6HRS PRN Aspir 81 (Aspirin) 81 Mg Tablet. 1 Tab PO DAILY Fish Oil 1,000 Mg Capsule ([place]-3 Fatty Acids/Fish Oil) 1 Each Capsule 1 Each PO BID Vitamin D2 (Ergocalciferol (Vitamin D2)) 50,000 Unit Capsule 50,000 Unit PO WEEKLY Allopurinol 100 Mg Tablet 1 Tab PO DAILY Nephro-Ray Tablet (Folic Acid/Vitamin B Comp W-C) 0.8 Mg Tablet 1 Tab PO HS Gabapentin 100 Mg Capsule 100 Mg PO BID Omeprazole 20 Mg Capsule. 20 Mg PO DAILY Calcium Acetate 667 Mg Capsule 2,001 Mg PO TIDWMEALS Vitals/I & O Vital Sign - Last 24 Hours 01/12/17 01/12/17 01/12/17 01/12/17 12:00 12:00 13:00 14:00 Temp 98.2 98.2 Pulse 110 98 102 Resp 16 17 18 B/P (MAP) 110/56 (74) 99/54 (69) 87/41 (56) Pulse Ox 98 97 97 O2 Delivery Nasal Cannula Nasal Cannula Nasal Cannula O2 Flow Rate 2.0 2.0 2.0 01/12/17 01/12/17 01/12/17 01/12/17 14:30 15:00 15:30 15:45 Pulse 108 104 94 114 Resp 18 18 15 20 B/P (MAP) 63/28 (40) 81/26 (44) 65/27 (40) 60/29 (39) Pulse Ox 95 97 96 97 O2 Delivery Nasal Cannula Nasal Cannula Nasal Cannula Nasal Cannula O2 Flow Rate 2.0 2.0 2.0 2.0 01/12/17 01/12/17 01/12/17 01/12/17 16:00 16:00 16:15 16:30 Temp 98.2 98.2 Pulse 98 104 108 Resp 17 17 20 B/P (MAP) 83/35 (51) 60/33 (42) 51/22 (32) Pulse Ox 99 95 98 O2 Delivery Nasal Cannula Nasal Cannula Nasal Cannula Nasal Cannula O2 Flow Rate 2.0 2.0 2.0 2.0 01/12/17 01/12/17 01/12/17 01/12/17 16:45 17:00 17:15 19:00 Pulse 110 118 110 115 Resp 20 18 18 18 B/P (MAP) 147/61 (89) 103/46 (65) 95/37 (56) 121/53 (75) Pulse Ox 96 94 94 93 O2 Delivery Nasal Cannula Nasal Cannula Nasal Cannula Nasal Cannula O2 Flow Rate 2.0 2.0 2.0 2.0 01/12/17 01/12/17 01/12/17 01/12/17 20:00 20:00 20:42 21:00 Temp 97.7 97.7 Pulse 106 106 108 Resp 18 22 B/P (MAP) 126/49 (74) 124/51 119/44 (69) Pulse Ox 92 93 O2 Delivery Nasal Cannula Nasal Cannula Nasal Cannula O2 Flow Rate 2.0 2.0 2.0 01/12/17 01/12/17 01/13/17 01/13/17 22:00 23:00 00:00 00:00 Temp 99.1 99.1 Pulse 97 83 106 Resp 20 19 19 B/P (MAP) 112/39 (63) 113/36 (61) 127/46 (73) Pulse Ox 93 96 94 O2 Delivery Nasal Cannula Nasal Cannula Nasal Cannula Nasal Cannula O2 Flow Rate 2.0 2.0 2.0 2.0 01/13/17 01/13/17 01/13/17 01/13/17 01:00 02:00 03:00 04:00 Pulse 94 93 94 Resp 22 22 25 B/P (MAP) 104/42 (62) 101/40 (60) 97/43 (61) Pulse Ox 95 98 97 O2 Delivery Nasal Cannula Nasal Cannula Nasal Cannula Nasal Cannula O2 Flow Rate 2.0 2.0 2.0 2.0 01/13/17 01/13/17 01/13/17 01/13/17 04:00 05:00 06:00 07:00 Temp 97.6 97.6 Pulse 104 95 97 86 Resp 16 19 24 20 B/P (MAP) 99/40 (59) 86/39 (55) 93/48 (63) 87/38 (54) Pulse Ox 98 97 98 96 O2 Delivery Nasal Cannula Nasal Cannula Nasal Cannula Nasal Cannula O2 Flow Rate 2.0 2.0 2.0 2.0 01/13/17 01/13/17 01/13/17 01/13/17 07:15 07:30 08:00 08:00 Temp 98.2 98.2 Pulse 96 100 86 Resp 18 19 20 B/P (MAP) 103/41 (61) 100/46 (64) 104/52 (69) Pulse Ox 95 97 97 O2 Delivery Nasal Cannula Nasal Cannula Nasal Cannula Nasal Cannula O2 Flow Rate 2.0 2.0 2.0 2.0 Intake and Output 01/12/17 01/12/17 01/13/17 15:00 23:00 07:00 Intake Total 345 ml 408 ml Output Total 0 ml 0 ml Balance 345 ml 408 ml INEZ GRADY MD Jan 13, 2017 09:33
--- NOTE | 2017-01-13 10:19 | PDOC ---
SUBJECTIVE ROS F/up for ESRD Still feeling very weak and tired, no apetite CVS: no Orthopnea, no recent CP RESP: no SOB, no KWONG GI: + Nausea, no Vomiting : no Dysuria, no Urgency OBJECTIVE Vital Signs Vital Signs Date Time Temp Pulse Resp B/P (MAP) Pulse Ox O2 Delivery O2 Flow Rate FiO2 01/13/17 10:00 78 20 84/31 (48) 96 Nasal Cannula 2.0 01/13/17 07:30 98.2 98.2 I & 0 Intake and Output 01/13/17 07:00 Intake Total 753 ml Output Total 0 ml Balance 753 ml Intake Oral 480 ml IV Total 273 ml Output Urine Total 0 ml PHYSICAL EXAM Physical Exam GEN: Awake, Oriented x 3, In no distress; Ill appearring EYES: Vision Unchanged, Conjunctiva Normal EN: No EN Drainage, Mucous Membranes moist NECK: no JVD, min JVP, Supple, no Thyromegaly CVS: S1S2, ? Murmur, No Gallop, No Rub,no Edema RESP: no Rales, no Rhonchi,no Acc. Muscle Use GI: BS + ve, NO Bruit, Non Tender, Non Distended : no CVA tenderness, no Suprapubic Tenderness DIAGNOSIS/ASSESSMENT Assessment & Plan ESRD: Current fluid and E-lyte status does not necessitate emergent need for dialysis. Will re-evaluate for dialysis in the am and continue on TTSAt schedule. Anorexia - doubt that this is a Uremic symptom since it started Suddenly on . ANEMIA; Aranap as ordered, Transfuse with next HD as needed HypoTN: Current meds reviewed. See orders for changes. Remains on Pressors for now BONE & MINERAL: follow phos and alter binder regimen as needed Discussed Plan of Care with family at bedside Problems: COMMENT/RELEVANT DATA Meds Current Medications Medications (Trade) Dose Ordered Sig/Colleen Start Time Stop Time Status Last Admin Dose Admin Acetaminophen (Tylenol) 500 mg 1X PRN PRN 01/11/17 09:00 01/12/17 08:59 DC Albumin Human 250 ml @ 62.5 mls/hr 1X ONCE 01/11/17 14:15 01/11/17 18:14 DC 01/11/17 14:15 62.5 MLS/HR Allopurinol (Zyloprim) 100 mg DAILY 01/10/17 14:30 01/13/17 08:49 100 MG Aspirin (Children'S Aspirin) 324 mg 1X ONCE 01/09/17 07:45 01/09/17 07:46 DC 01/09/17 08:15 324 MG Aspirin (Ecotrin) 81 mg DAILY 01/10/17 14:30 01/13/17 08:48 81 MG Atenolol (Tenormin) 50 mg DAILY 01/10/17 14:30 01/12/17 14:50 DC 01/12/17 09:09 50 MG Calcium Acetate (Phoslo) 2,001 mg TIDWMEALS 01/10/17 17:00 01/13/17 08:49 2,001 MG Darbepoetin Jerome (Aranesp) 60 mcg WEEKLYHS 01/09/17 21:00 01/09/17 21:31 60 MCG Digoxin (Lanoxin) 250 mcg 1X ONCE 01/11/17 18:45 01/11/17 18:46 DC 01/11/17 19:02 250 MCG Diltiazem HCl (Cardizem) 10 mg 1X ONCE 01/09/17 07:30 01/09/17 07:31 DC 01/09/17 07:39 10 MG Diltiazem HCl 125 mg/Dextrose 125 ml @ 0 mls/hr CONT PRN 01/09/17 07:30 01/09/17 07:40 5 MLS/HR Diphenhydramine HCl (Benadryl) 25 mg 1X PRN PRN 01/11/17 09:00 01/12/17 08:59 DC 01/11/17 13:30 25 MG Enoxaparin Sodium (Lovenox 100mg Syringe) 90 mg Q24H 01/11/17 20:00 01/12/17 20:42 90 MG Fentanyl Citrate (Fentanyl 2ml Vial) 50 mcg 1X ONCE 01/09/17 20:00 01/09/17 20:01 DC 01/09/17 19:57 50 MCG Fentanyl Citrate (Fentanyl 5ml Vial) 50 mcg 1X ONCE 01/11/17 13:45 01/11/17 13:46 DC 01/11/17 13:51 50 MCG Fish Oil (Fish Oil) 1,000 mg DAILY 01/11/17 09:00 01/13/17 08:49 1,000 MG Gabapentin (Neurontin) 100 mg BID 01/10/17 14:30 01/13/17 08:50 100 MG Heparin Sodium/ Sodium Chloride 1,000 unit 1X ONCE 01/11/17 13:45 01/11/17 13:46 DC 01/11/17 13:50 1,000 UNIT Info (Anti-Coagulation Monitoring By Pharmacy) 1 each PRN DAILY PRN 01/13/17 09:00 Info (Do NOT chart on this entry -- for MONITORING) 1 each PRN DAILY PRN 01/11/17 14:00 01/13/17 13:59 Info (PHARMACY MONITORING -- do not chart) 1 each PRN DAILY PRN 01/11/17 09:00 Iohexol (Omnipaque 350 Mg/ml) 81 ml 1X ONCE 01/11/17 13:45 01/11/17 13:46 DC 01/11/17 13:51 81 ML Lidocaine HCl 12 ml 1X ONCE 01/11/17 13:45 01/11/17 13:46 DC 01/11/17 13:50 12 ML Lidocaine HCl (Xylocaine-Mpf 1% Vial) 2 ml 1X ONCE 01/11/17 09:00 01/11/17 09:02 DC 01/11/17 10:01 2 ML Meloxicam (Mobic) 7.5 mg DAILY 01/10/17 14:30 01/13/17 08:49 7.5 MG Midazolam HCl (Versed) 1 mg 1X ONCE 01/11/17 13:45 01/11/17 13:46 DC 01/11/17 13:51 1 MG Morphine Sulfate 3 mg 1X ONCE 01/11/17 12:15 01/11/17 12:16 DC 01/11/17 12:15 3 MG Nitroglycerin (Nitrostat) 0.4 mg PRN Q5MIN PRN 01/11/17 12:15 01/11/17 12:35 0.4 MG Norepinephrine Bitartrate 250 ml @ 0 mls/hr CONT PRN 01/12/17 15:45 01/12/17 20:42 31.875 MLS/HR Ondansetron HCl (Zofran) 8 mg PRN Q6HRS PRN 01/11/17 18:45 01/11/17 18:43 8 MG Oxycodone/ Acetaminophen (Percocet 5/325) 1 tab PRN Q4HRS PRN 01/09/17 18:00 01/11/17 08:31 1 TAB Pantoprazole Sodium (Protonix) 40 mg DAILYAC 01/10/17 14:30 01/13/17 08:48 40 MG Propafenone HCl (Rythmol) 75 mg BID 01/12/17 21:00 01/12/17 20:42 75 MG Sodium Chloride 1,000 ml @ 1,000 mls/hr Q1H PRN 01/11/17 08:55 01/11/17 14:54 DC Vitamin B Complex/ Vitamin C (Tsering-Ray) 1 tab HS 01/10/17 21:00 01/12/17 20:41 1 TAB FLORESITA ACOSTA MD Jan 13, 2017 10:19
[2017-01-13] MEDS ORDERED: MAGNESIUM SULFATE 2GM 50 ML IV PRN (10:45)
[2017-01-13] MEDS: IV NORMAL SALINE 1000ML BAG 1,000 ML IV SCH ×2 (10:50→23:15)
--- NOTE | 2017-01-13 15:58 | RAD ---
Exam performed: Left upper extremity arterial Doppler. History: AV fistula, evaluation of stenosis. Date of service: 01/13/17. Comparison: None available Discussion: Real-time grayscale, color-flow, duplex Doppler and spectral analysis of the AV fistula is performed which appears to be between the radial artery and cephalic vein. Normal flow is identified. No definite stenosis is seen. Impression: No definite stenosis seen in the AV fistula
[2017-01-13] MEDS: IV NORMAL SALINE 500ML BAG 500 ML IV PRN (20:19)
[2017-01-13] MEDS: FOLIC/VIT B COMP W-C (RENAL) TABLET. PO SCH (22:24)
[2017-01-14] VITALS (24 sets, daily range): BP systolic 75–123; BP diastolic 35–58
[2017-01-14] MEDS: IV NORMAL SALINE 500ML BAG 500 ML IV PRN (01:15)
[2017-01-14] MEDS: PANTOPRAZOLE 40 MG TABLET.DR. PO SCH (07:30)
[2017-01-14] MEDS: CALCIUM ACETATE 667 MG CAPSULE PO SCH ×3 (08:00→16:05)
[2017-01-14] MEDS: GABAPENTIN 100 MG CAPSULE. PO SCH ×2 (09:00→21:09)
[2017-01-14] MEDS: ASPIRIN ENTERIC COATED 81 MG TABLET.DR. PO SCH (09:00)
[2017-01-14] MEDS: OMEGA-3 FATTY ACIDS/FISH OIL 1,000 MG CAPSULE. PO SCH (09:00)
[2017-01-14] MEDS: ALLOPURINOL 100 MG TABLET. PO SCH (09:00)
[2017-01-14] MEDS: MELOXICAM 7.5 MG TABLET PO SCH (09:00)
[2017-01-14] MEDS: PROPAFENONE 150 MG TABLET. PO SCH ×2 (09:00→21:09)
--- NOTE | 2017-01-14 09:03 | PDOC ---
PROGRESS NOTES Subjective Subjective Patient has worsening lethargy and continues to have no appetite. A nurse noticed a possible breast mass while bathing the patient yesterday. Mammogram is pending. Continues to be in atrial fibrillation and has low blood pressure. Denies chest pain or SOB. Objective Objective Vital Signs Date Time Temp Pulse Resp B/P (MAP) Pulse Ox O2 Delivery O2 Flow Rate FiO2 01/14/17 03:34 98/38 (58) 01/14/17 03:10 97.8 102 20 98 Nasal Cannula 2.0 97.8 Physical Exam Physical Exam No significant changes to exam. Assessment Assessment Problems Medical Problems: (1) Non-STEMI (non-ST elevated myocardial infarction) Status: Acute Plan Plan of Care 1. Atrial fibrillation - Continue Rhythmol for now, if not controlled will consider switching to Amiodarone 2. Hypotension - Current medications reviewed. Continue IV fluids. Continue pressors for now. 3. Lethargy/Anorexia - Blood cultures pending - Will consider PPN 4. Possible breast mass - Bilateral Mammogram pending - R breast US pending 5. ESRD - Nephrology following, appreciate input. HD scheduled for today. 6. Anemia - Nephrology following, patient on Aranesp Dispo: Continue inpatient admission to ICU Comment Review of Relevant I have reviewed the following items michelle (where applicable) has been applied. Medications Current Medications Sodium Chloride 500 ml @ 500 mls/hr 1X ONCE IV Last administered on 06:45; Start 01/09/17 at 06:45; Stop 01/09/17 at 07:44; Status DC Diltiazem HCl (Cardizem) 10 mg 1X ONCE IVP Last administered on 01/09/17 07: 39; Start 01/09/17 at 07:30; Stop 01/09/17 at 07:31; Status DC Diltiazem HCl 125 mg/Dextrose 125 ml @ 0 mls/hr CONT PRN IV SEE I/O RECORD Last administered on 01/09/17 07:40; Start 01/09/17 at 07:30 Aspirin (Children'S Aspirin) 324 mg 1X ONCE PO Last administered on 01/09/17 08:15; Start 01/09/17 at 07:45; Stop 01/09/17 at 07:46; Status DC Darbepoetin Jerome (Aranesp) 60 mcg WEEKLYHS SQ Last administered on 01/09/17 21 :31; Start 01/09/17 at 21:00 Albumin Human 500 ml @ 125 mls/hr 1X ONCE IV Last administered on 01/09/17 13:02; Start 01/09/17 at 13:00; Stop 01/09/17 at 16:59; Status DC Albumin Human 500 ml @ 125 mls/hr 1X ONCE IV Last administered on 01/09/17 16:35; Start 01/09/17 at 16:00; Stop 01/09/17 at 19:59; Status DC Digoxin (Lanoxin) 500 mcg 1X ONCE IV Last administered on 01/09/17 13:03; Start 01/09/17 at 13:00; Stop 01/09/17 at 13:01; Status DC Sodium Chloride 1,000 ml @ 1,000 mls/hr Q1H PRN IV hypotension; Start 01/09/17 at 16:31; Stop 01/09/17 at 22:30; Status DC Sodium Chloride 1,000 ml @ 400 mls/hr Q2H30M PRN IV PATENCY; Start 01/09/17 at 16:31; Stop 01/10/17 at 04:30; Status DC Info (PHARMACY MONITORING -- do not chart) 1 each PRN DAILY PRN MC SEE COMMENTS ; Start 01/09/17 at 16:45; Status Cancel Fentanyl Citrate (Fentanyl 2ml Vial) 50 mcg PRN Q4HRS PRN IV PAIN Last administered on 01/09/17 17:52; Start 01/09/17 at 18:00 Oxycodone/ Acetaminophen (Percocet 5/325) 1 tab PRN Q4HRS PRN PO PAIN Last administered on 01/11/17 08:31; Start 01/09/17 at 18:00 Fentanyl Citrate (Fentanyl 2ml Vial) 50 mcg 1X ONCE IM ; Start 01/09/17 at 20: 00; Stop 01/09/17 at 20:01; Status Cancel Fentanyl Citrate (Fentanyl 2ml Vial) 50 mcg 1X ONCE IV Last administered on 19:57; Start 01/09/17 at 20:00; Stop 01/09/17 at 20:01; Status DC Allopurinol (Zyloprim) 100 mg DAILY PO Last administered on 01/13/17 08:49; Start 01/10/17 at 14:30 Aspirin (Ecotrin) 81 mg DAILY PO Last administered on 01/13/17 08:48; Start at 14:30 Atenolol (Tenormin) 50 mg DAILY PO Last administered on 01/12/17 09:09; Start 01/10/17 at 14:30; Stop 01/12/17 at 14:50; Status DC Calcium Acetate (Phoslo) 2,001 mg TIDWMEALS PO Last administered on 01/13/17 17:23; Start 01/10/17 at 17:00 Vitamin B Complex/ Vitamin C (Tsering-Ray) 1 tab HS PO Last administered on 22:24; Start 01/10/17 at 21:00 Gabapentin (Neurontin) 100 mg BID PO Last administered on 01/13/17 20:05; Start 01/10/17 at 14:30 Meloxicam (Mobic) 7.5 mg DAILY PO Last administered on 01/13/17 08:49; Start 01/10/17 at 14:30 Fish Oil (Fish Oil) 1,000 mg DAILY PO Last administered on 01/13/17 08:49; Start 01/11/17 at 09:00 Pantoprazole Sodium (Protonix) 40 mg DAILYAC PO Last administered on 01/13/17 08:48; Start 01/10/17 at 14:30 Digoxin (Lanoxin) 500 mcg 1X ONCE IV Last administered on 01/10/17 15:23; Start 01/10/17 at 15:30; Stop 01/10/17 at 15:31; Status DC Albumin Human 500 ml @ 125 mls/hr 1X ONCE IV Last administered on 01/10/17 15:22; Start 01/10/17 at 15:15; Stop 01/10/17 at 19:14; Status DC Lidocaine HCl (Xylocaine-Mpf 1% Vial) 2 ml STK-MED ONCE .ROUTE ; Start 01/11/17 at 08:47; Stop 01/11/17 at 08:48; Status DC Sodium Chloride 1,000 ml @ 1,000 mls/hr Q1H PRN IV hypotension; Start 01/11/17 at 08:55; Stop 01/11/17 at 14:54; Status DC Albumin Human 200 ml @ 200 mls/hr 1X PRN PRN IV Hypotension; Start 01/11/17 at 09:00; Stop 01/11/17 at 14:59; Status DC Acetaminophen (Tylenol) 500 mg 1X PRN PRN PO MILD PAIN / TEMP; Start 01/11/17 at 09:00; Stop 01/12/17 at 08:59; Status DC Diphenhydramine HCl (Benadryl) 25 mg 1X PRN PRN IV ITCHING Last administered on 01/11/17 13:30; Start 01/11/17 at 09:00; Stop 01/12/17 at 08:59; Status DC Info (PHARMACY MONITORING -- do not chart) 1 each PRN DAILY PRN MC SEE COMMENTS ; Start 01/11/17 at 09:00 Lidocaine HCl (Xylocaine-Mpf 1% Vial) 2 ml 1X ONCE INJ Last administered on 10:01; Start 01/11/17 at 09:00; Stop 01/11/17 at 09:02; Status DC Albumin Human 500 ml @ 125 mls/hr 1X ONCE IV Last administered on 01/11/17 11:50; Start 01/11/17 at 11:45; Stop 01/11/17 at 15:44; Status DC Nitroglycerin (Nitrostat) 0.4 mg STK-MED ONCE SL ; Start 01/11/17 at 12:07; Stop 01/11/17 at 12:08; Status DC Nitroglycerin (Nitrostat) 0.4 mg PRN Q5MIN PRN SL CHEST PAIN Last administered on 01/11/17 12:35; Start 01/11/17 at 12:15 Morphine Sulfate 3 mg 1X ONCE IV Last administered on 01/11/17 12:15; Start 01/11/17 at 12:15; Stop 01/11/17 at 12:16; Status DC Digoxin (Lanoxin) 250 mcg 1X ONCE IV Last administered on 01/11/17 12:34; Start 01/11/17 at 12:30; Stop 01/11/17 at 12:31; Status DC Fentanyl Citrate (Fentanyl 5ml Vial) 250 mcg STK-MED ONCE .ROUTE ; Start at 13:07; Stop 01/11/17 at 13:08; Status DC Midazolam HCl (Versed) 5 mg STK-MED ONCE .ROUTE ; Start 01/11/17 at 13:07; Stop 01/11/17 at 13:08; Status DC Iohexol (Omnipaque 350 Mg/ml) 100 ml STK-MED ONCE .ROUTE ; Start 01/11/17 at 13: 08; Stop 01/11/17 at 13:09; Status DC Heparin Sodium/ Sodium Chloride 500 ml @ As Directed STK-MED ONCE .ROUTE ; Start 01/11/17 at 13:09; Stop 01/11/17 at 13:10; Status DC Lidocaine HCl 20 ml STK-MED ONCE .ROUTE ; Start 01/11/17 at 13:09; Stop at 13:10; Status DC Heparin Sodium/ Sodium Chloride 1,000 unit 1X ONCE IART Last administered on 13:50; Start 01/11/17 at 13:45; Stop 01/11/17 at 13:46; Status DC Midazolam HCl (Versed) 1 mg 1X ONCE IV Last administered on 01/11/17 13:51; Start 01/11/17 at 13:45; Stop 01/11/17 at 13:46; Status DC Fentanyl Citrate (Fentanyl 5ml Vial) 50 mcg 1X ONCE IV Last administered on 13:51; Start 01/11/17 at 13:45; Stop 01/11/17 at 13:46; Status DC Iohexol (Omnipaque 350 Mg/ml) 81 ml 1X ONCE IART Last administered on 13:51; Start 01/11/17 at 13:45; Stop 01/11/17 at 13:46; Status DC Lidocaine HCl 12 ml 1X ONCE IJ Last administered on 01/11/17 13:50; Start at 13:45; Stop 01/11/17 at 13:46; Status DC Info (Do NOT chart on this entry -- for MONITORING) 1 each PRN DAILY PRN MC SEE COMMENTS; Start 01/11/17 at 14:00; Stop 01/13/17 at 13:59; Status DC Albumin Human 250 ml @ 62.5 mls/hr 1X ONCE IV Last administered on 01/11/17 14:15; Start 01/11/17 at 14:15; Stop 01/11/17 at 18:14; Status DC Digoxin (Lanoxin) 250 mcg 1X ONCE IV Last administered on 01/11/17 19:02; Start 01/11/17 at 18:45; Stop 01/11/17 at 18:46; Status DC Ondansetron HCl (Zofran) 8 mg PRN Q6HRS PRN IV NAUSEA/VOMITING Last administered on 01/11/17 18:43; Start 01/11/17 at 18:45 Enoxaparin Sodium (Lovenox 100mg Syringe) 90 mg Q24H SQ Last administered on 20:05; Start 01/11/17 at 20:00 Propafenone HCl (Rythmol) 75 mg BID PO Last administered on 01/12/17 20:42; Start 01/12/17 at 21:00 Norepinephrine Bitartrate 250 ml @ 0 mls/hr CONT PRN IV SEE I/O RECORD Last administered on 01/12/17 20:42; Start 01/12/17 at 15:45 Info (Anti-Coagulation Monitoring By Pharmacy) 1 each PRN DAILY PRN MC SEE COMMENTS; Start 01/13/17 at 09:00 Magnesium Sulfate/ Dextrose 50 ml @ 25 mls/hr PRN DAILY PRN IV for Mag < 1.7 on am labs; Start 01/13/17 at 10:45 Sodium Chloride 1,000 ml @ 80 mls/hr [id number] IV Last administered on 10:50; Start 01/13/17 at 10:45 Sodium Chloride 500 ml @ 0 mls/hr QID PRN IV for MAP < 65 Last administered on 01/14/17 01:15; Start 01/13/17 at 10:45 Active Scripts Active Reported Ferric Citrate 210 Mg Tablet 210 Mg PO Meloxicam 7.5 Mg Tablet 1 Tab PO DAILY Atenolol 50 Mg Tablet 1 Tab PO DAILY Tylenol (Acetaminophen) 325 Mg Tablet 500 Mg PO PRN Q6HRS PRN Aspir 81 (Aspirin) 81 Mg Tablet.dr 1 Tab PO DAILY Fish Oil 1,000 Mg Capsule ([place]-3 Fatty Acids/Fish Oil) 1 Each Capsule 1 Each PO BID Vitamin D2 (Ergocalciferol (Vitamin D2)) 50,000 Unit Capsule 50,000 Unit PO WEEKLY Allopurinol 100 Mg Tablet 1 Tab PO DAILY Nephro-Ray Tablet (Folic Acid/Vitamin B Comp W-C) 0.8 Mg Tablet 1 Tab PO HS Gabapentin 100 Mg Capsule 100 Mg PO BID Omeprazole 20 Mg Capsule.dr 20 Mg PO DAILY Calcium Acetate 667 Mg Capsule 2,001 Mg PO TIDWMEALS Vitals/I & O Vital Sign - Last 24 Hours 01/13/17 01/13/17 01/13/17 01/13/17 09:00 10:00 11:00 12:00 Temp 98.2 98.2 Pulse 90 78 89 87 Resp 19 20 16 19 B/P (MAP) 104/46 (65) 84/31 (48) 80/32 (48) 92/38 (56) Pulse Ox 96 96 98 97 O2 Delivery Nasal Cannula Nasal Cannula Nasal Cannula Nasal Cannula O2 Flow Rate 2.0 2.0 2.0 2.0 01/13/17 01/13/17 01/13/17 01/13/17 12:00 13:00 14:00 15:00 Pulse 88 90 82 Resp 16 17 16 B/P (MAP) 82/38 (53) 94/38 (56) 95/43 (60) Pulse Ox 98 96 97 O2 Delivery Nasal Cannula Nasal Cannula Nasal Cannula Nasal Cannula O2 Flow Rate 2.0 2.0 2.0 2.0 01/13/17 01/13/17 01/13/17 01/13/17 16:00 16:00 17:00 18:00 Temp 98.0 98.0 Pulse 87 103 99 Resp 20 15 18 B/P (MAP) 92/43 (59) 100/53 (69) 79/42 (54) Pulse Ox 95 95 94 O2 Delivery Nasal Cannula Nasal Cannula Nasal Cannula Nasal Cannula O2 Flow Rate 2.0 2.0 2.0 2.0 01/13/17 01/13/17 01/13/17 01/13/17 19:00 20:00 21:00 21:00 Temp 97.0 97.0 Pulse 77 101 62 Resp 16 12 B/P (MAP) 93/37 (55) 85/45 (58) 82/45 Pulse Ox 97 97 O2 Delivery Nasal Cannula Nasal Cannula Nasal Cannula O2 Flow Rate 2.0 2.0 2.0 01/13/17 01/13/17 01/13/17 01/13/17 21:00 22:00 22:00 23:00 Temp 97.0 97.0 Pulse 84 92 88 80 Resp 9 14 16 B/P (MAP) 93/37 (55) 76/37 (50) 82/35 (51) 91/34 (53) Pulse Ox 98 96 96 O2 Delivery Nasal Cannula Nasal Cannula Nasal Cannula O2 Flow Rate 2.0 2.0 2.0 01/14/17 01/14/17 01/14/17 01/14/17 00:01 02:15 03:10 03:34 Temp 97.8 97.8 Pulse 82 102 Resp 16 20 B/P (MAP) 90/35 (53) 96/36 (56) 77/56 (63) 98/38 (58) Pulse Ox 98 98 O2 Delivery Nasal Cannula Nasal Cannula O2 Flow Rate 2.0 2.0 INEZ GRADY MD Jan 14, 2017 09:03
[2017-01-14 09:07] LABS: RED BLOOD COUNT 3.18 x10^6/uL (3.50-5.40); RED CELL DISTRIBUTION WIDTH 14.3 % (11.5-14.5); WHITE BLOOD COUNT 20.2 x10^3/uL (4.0-11.0)
[2017-01-14] MEDS ORDERED: IV NORMAL SALINE 1000ML BAG 1,000 ML IV PRN (09:11)
[2017-01-14] MEDS ORDERED: DIALYSIS PATIENT. MC PRN (09:15)
[2017-01-14 09:21] LABS: ALBUMIN 2.9 g/dL (3.4-5.0); CALCIUM 8.2 mg/dL (8.5-10.1); CREATININE 5.8 mg/dL (0.6-1.0); GFR 7.2; PHOSPHORUS 4.8 mg/dL (2.6-4.7)
[2017-01-14 09:23] LABS: POTASSIUM 5.4 mmol/L (3.5-5.1)
[2017-01-14 09:36] LABS: BASO # 0.2 x10^3/uL (0.0-0.2); BASO % 1 % (0-3); EOS % 2 % (0-3); HEMATOCRIT 33.7 % (36.0-47.0); LYMPH # 1.9 x10^3/uL (1.0-4.8); LYMPH % 10 % (24-48); MEAN CORPUSCULAR HEMOGLOBIN 35 pg (25-35); MEAN CORPUSCULAR HGB CONC 33 g/dL (31-37); MEAN CORPUSCULAR VOLUME 107 fL (79-100); MONO % 8 % (0-9); NEUT % 79 % (31-73); PLATELET COUNT 104 x10^3/uL (140-400); RED BLOOD COUNT 3.16 x10^6/uL (3.50-5.40); RED CELL DISTRIBUTION WIDTH 14.4 % (11.5-14.5); WHITE BLOOD COUNT 19.9 x10^3/uL (4.0-11.0)
--- NOTE | 2017-01-14 10:19 | PDOC ---
Dialysis Progress Note Dialysis Note Dialysis Note Seen on Hemodialysis, tolerating treatment Okay since she is now on Levophed Vitals on Hemodialysis: 93/36 on Levophed 115 afeb General Appearance: Ill appearring Awake: but somewhat drowsy Alert Oriented x 1-2 Neck: No JVD or JVP Chest: CTA Silviano Heart: S1 S2 Abdomen - Soft NTND Extremities - No Edema ESRD: Dialysis as below F 180 NR 3.5 Hrs 3 K 2.5 Ca 140 Na 40 HC03 Qb 350 + Qd 500+ Heparin 0 Units Uf 1 Kgs or to dry weight as tolerated May give 25-50 gms of 25% Albumin if needed to maintain Hemodynamic stability Treatment plan reviewed and discussed with electric 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 welder Will reval on HD Vitals Vital Signs Vital Signs Date Time Temp Pulse Resp B/P (MAP) Pulse Ox O2 Delivery O2 Flow Rate FiO2 01/14/17 09:00 92 14 81/41 (54) 97 Nasal Cannula 2.0 01/14/17 08:00 98.1 98.1 Labs Last Labs Laboratory Tests Test 01/14/17 08:40 White Blood Count 19.9 x10^3/uL (4.0-11.0) Red Blood Count 3.16 x10^6/uL (3.50-5.40) Hemoglobin 11.0 g/dL (12.0-15.5) Hematocrit 33.7 % (36.0-47.0) Mean Corpuscular Volume 107 fL (79-100) Mean Corpuscular Hemoglobin 35 pg (25-35) Mean Corpuscular Hemoglobin Concent 33 g/dL (31-37) Red Cell Distribution Width 14.4 % (11.5-14.5) Platelet Count 104 x10^3/uL (140-400) Neutrophils (%) (Auto) 79 % (31-73) Lymphocytes (%) (Auto) 10 % (24-48) Monocytes (%) (Auto) 8 % (0-9) Eosinophils (%) (Auto) 2 % (0-3) Basophils (%) (Auto) 1 % (0-3) Neutrophils # (Auto) 15.7 x10^3uL (1.8-7.7) Lymphocytes # (Auto) 1.9 x10^3/uL (1.0-4.8) Monocytes # (Auto) 1.6 x10^3/uL (0.0-1.1) Eosinophils # (Auto) 0.4 x10^3/uL (0.0-0.7) Basophils # (Auto) 0.2 x10^3/uL (0.0-0.2) Sodium Level 131 mmol/L (136-145) Potassium Level 5.4 mmol/L (3.5-5.1) Chloride Level 100 mmol/L (98-107) Carbon Dioxide Level 20 mmol/L (21-32) Anion Gap 11 (6-14) Blood Urea Nitrogen 49 mg/dL (7-20) Creatinine 5.8 mg/dL (0.6-1.0) Estimated GFR (Cockcroft-Gault) 7.2 Glucose Level 118 mg/dL (70-99) Calcium Level 8.2 mg/dL (8.5-10.1) Phosphorus Level 4.8 mg/dL (2.6-4.7) Magnesium Level 2.3 mg/dL (1.8-2.4) Albumin 2.9 g/dL (3.4-5.0) Laboratory Tests Test 01/14/17 08:40 White Blood Count 19.9 x10^3/uL (4.0-11.0) Red Blood Count 3.16 x10^6/uL (3.50-5.40) Hemoglobin 11.0 g/dL (12.0-15.5) Hematocrit 33.7 % (36.0-47.0) Mean Corpuscular Volume 107 fL (79-100) Mean Corpuscular Hemoglobin 35 pg (25-35) Mean Corpuscular Hemoglobin Concent 33 g/dL (31-37) Red Cell Distribution Width 14.4 % (11.5-14.5) Platelet Count 104 x10^3/uL (140-400) Neutrophils (%) (Auto) 79 % (31-73) Lymphocytes (%) (Auto) 10 % (24-48) Monocytes (%) (Auto) 8 % (0-9) Eosinophils (%) (Auto) 2 % (0-3) Basophils (%) (Auto) 1 % (0-3) Neutrophils # (Auto) 15.7 x10^3uL (1.8-7.7) Lymphocytes # (Auto) 1.9 x10^3/uL (1.0-4.8) Monocytes # (Auto) 1.6 x10^3/uL (0.0-1.1) Eosinophils # (Auto) 0.4 x10^3/uL (0.0-0.7) Basophils # (Auto) 0.2 x10^3/uL (0.0-0.2) Sodium Level 131 mmol/L (136-145) Potassium Level 5.4 mmol/L (3.5-5.1) Chloride Level 100 mmol/L (98-107) Carbon Dioxide Level 20 mmol/L (21-32) Anion Gap 11 (6-14) Blood Urea Nitrogen 49 mg/dL (7-20) Creatinine 5.8 mg/dL (0.6-1.0) Estimated GFR (Cockcroft-Gault) 7.2 Glucose Level 118 mg/dL (70-99) Calcium Level 8.2 mg/dL (8.5-10.1) Phosphorus Level 4.8 mg/dL (2.6-4.7) Magnesium Level 2.3 mg/dL (1.8-2.4) Albumin 2.9 g/dL (3.4-5.0) Assessment Assessment Problems Medical Problems: (1) Non-STEMI (non-ST elevated myocardial infarction) Status: Acute Problems: Plan Plan of Care Problems Medical Problems: (1) Non-STEMI (non-ST elevated myocardial infarction) Status: Acute FLORESITA ACOSTA MD Jan 14, 2017 10:19
--- NOTE | 2017-01-14 10:44 | RAD ---
Ultrasound of the right breast 01/14/2017 Clinical history: Right breast nipple inversion and tenderness. Technique: A Real-time ultrasound examination of the right breast was performed. Multiple images were obtained. This study was performed portably in the intensive care unit. Findings: Comparison is made to patient's mammogram of the right breast dated 08/31/2014. Edema is seen throughout the right breast. Dilated ducts are seen within the retroareolar region of the right breast. No solid or cystic mass is seen. No abnormal fluid collection is seen to suggest evidence of an abscess. Impression: Edema is seen throughout the right breast. Mildly dilated ducts are noted. No solid or cystic mass is seen.
[2017-01-14] MEDS: IV NORMAL SALINE 1000ML BAG 1,000 ML IV SCH (11:45)
--- NOTE | 2017-01-14 12:13 | RAD ---
AP portable chest radiograph 01/14/2017 Clinical History: Cough. An AP portable erect digital radiograph of the chest was obtained. Comparison study is dated 01/09/2017. A pacemaker is unchanged in position. The cardiac silhouette is mildly enlarged. The thoracic aorta is tortuous. There is a small right pleural effusion which has increased since the previous examination. Prominence of the pulmonary vasculature is seen suggesting mild CHF which appears increased slightly since the previous study. No pneumothorax is seen. The osseous structures are unchanged. Impression: Findings suggesting mild CHF which appears increased since the previous study.
--- NOTE | 2017-01-14 12:47 | PDOC ---
Infectious Disease Note ROS ROS Vital Sign Vital Signs Vital Signs Date Time Temp Pulse Resp B/P (MAP) Pulse Ox O2 Delivery O2 Flow Rate FiO2 01/14/17 12:00 Nasal Cannula 2.0 01/14/17 12:00 98.0 106 15 75/37 (50) 100 98.0 Labs Lab Laboratory Tests Test 01/14/17 08:40 01/14/17 10:30 White Blood Count 19.9 x10^3/uL (4.0-11.0) Red Blood Count 3.16 x10^6/uL (3.50-5.40) Hemoglobin 11.0 g/dL (12.0-15.5) Hematocrit 33.7 % (36.0-47.0) Mean Corpuscular Volume 107 fL (79-100) Mean Corpuscular Hemoglobin 35 pg (25-35) Mean Corpuscular Hemoglobin Concent 33 g/dL (31-37) Red Cell Distribution Width 14.4 % (11.5-14.5) Platelet Count 104 x10^3/uL (140-400) Neutrophils (%) (Auto) 79 % (31-73) Lymphocytes (%) (Auto) 10 % (24-48) Monocytes (%) (Auto) 8 % (0-9) Eosinophils (%) (Auto) 2 % (0-3) Basophils (%) (Auto) 1 % (0-3) Neutrophils # (Auto) 15.7 x10^3uL (1.8-7.7) Lymphocytes # (Auto) 1.9 x10^3/uL (1.0-4.8) Monocytes # (Auto) 1.6 x10^3/uL (0.0-1.1) Eosinophils # (Auto) 0.4 x10^3/uL (0.0-0.7) Basophils # (Auto) 0.2 x10^3/uL (0.0-0.2) Sodium Level 131 mmol/L (136-145) Potassium Level 5.4 mmol/L (3.5-5.1) Chloride Level 100 mmol/L (98-107) Carbon Dioxide Level 20 mmol/L (21-32) Anion Gap 11 (6-14) Blood Urea Nitrogen 49 mg/dL (7-20) Creatinine 5.8 mg/dL (0.6-1.0) Estimated GFR (Cockcroft-Gault) 7.2 Glucose Level 118 mg/dL (70-99) Calcium Level 8.2 mg/dL (8.5-10.1) Phosphorus Level 4.8 mg/dL (2.6-4.7) Magnesium Level 2.3 mg/dL (1.8-2.4) Albumin 2.9 g/dL (3.4-5.0) Ammonia 31 mcmol/L (11-34) Objective Assessment ? sepsis - hypotension/Leukocytosis Leukocytosis Afib RVR + MRSA screen Recent UTI H/o C-diff Plan Plan of Care Straight cath UA C and S Procalcitonin F/u blood cults Vanc/Zosyn/Micafungin F/u labs in am d/w Reviewed previous records 35 mins CC time # [id number] NICK PUCKETT MD Jan 14, 2017 12:47
[2017-01-14] MEDS: ANTI-COAG MONITOR BY PHARMACY. MC PRN ×2 (13:15→13:16)
[2017-01-14] MEDS: PIPERACILLIN/TAZOBACTAM 2.25 GM in IV NORMAL SALINE 50ML 50 ML IV SCH ×2 (15:07→22:42)
[2017-01-14] MEDS: MICAFUNGIN 100 MG in IV DEXTROSE 5% 100 ML IV SCH (16:05)
--- NOTE | 2017-01-14 16:16 | PDOC2 ---
NEUROLOGY CONSULT Date of Admission Date of Admission DATE: 01/14/17 TIME: 16:07 Reason for Consult Reason for Consult: IMPRESSION: Metabolic encephalopathy. Lethargy. Confusion. Generalized weakness. New onset Afib. CHF Renal failure on dialysis. DM HTN Anemia. Gout Obesity RECOMMENDATIONS/PLAN: Treat medical and cardiac disease. EEG HCT w/o contrast. Lab: see orders. HISTORY OF THE PRESENT ILLNESS: 71-y-old female patient with above medical and cardiac diseases was noted MS changes, confusional episodes and generalized weakness, so Neurology was requested for consultation. no focalized sensory of motor deficits noted. Past Medical History Cardiovascular: HTN, Other Heme/Onc: Anemia NOS Rheumatologic: Gout Renal/: Chronic renal failure Endocrine: Diabetes, Hyperparathyroidism, Other Past Surgical History Pacemaker, Cholecystectomy, Hysterectomy, Other Family History No Significant Social History ALCOHOL: none Drugs: None ALLERGY: Reviewed. MEDICATIONS: Refer to MAR REVIEW OF SYSTEMS: Constitutional: No malnutrition, weight loss, cachexia. Head: No recent traumatic brain or head injury. Skin: No edema, or rash. Ear: No infection. Eyes: No vision loss or color blindness. Nose: No bleeding or purulent discharges. Hearing: Hearing decrease. Neck: No injury. Breast: No history of cancer, masses,or discharges. Cardiac: New onset AFib, Pacemaker Placement, HTN. Pulmonary: No COPD. GI: No GI ulcer, GI bleeding. Urinary/genital: UTI. Endocrinologic: Diabetes Mellitus, obesity. Skeletomuscular: Generalized weakness. Neurological: see HP. Psychiatric: Denies drug use/abuse. Otherwise, not [id number] review of systems. PHYSICAL EXAMINATION: General appearance is in subacute distress. HEENT: Normocephalic and nontraumatic. Eyes, nose, ears, and throat are unremarkable. Neck is supple. No lymphadenopathy. No crepitus. Cardiovascular: S1, S2, irregular rate and rhythm. Pulmonary: Clear to auscultation bilaterally. Abdomen: Bowel sounds are positive. Extremities: No rash, lesions, or edema. No restriction of range of motion NEUROLOGICAL EXAMINATION: Mildly lethargic, but arousable. Not oriented to time, place and person. PERRL. EOMI, but slow. CN: no acute focal findings. Muscle tone: within normal. Muscle strength: 4 DTR: 2- Plantar reflex: Flexor response bilaterally Gait: not examined in bed. Sensory exam: no abnormal findings. Not able to access cerebellar signs this time. F-T-N test not performed due to not follow commands. Current Medications Current Medications Current Medications Sodium Chloride 500 ml @ 500 mls/hr 1X ONCE IV Last administered on 06:45; Start 01/09/17 at 06:45; Stop 01/09/17 at 07:44; Status DC Diltiazem HCl (Cardizem) 10 mg 1X ONCE IVP Last administered on 01/09/17 07: 39; Start 01/09/17 at 07:30; Stop 01/09/17 at 07:31; Status DC Diltiazem HCl 125 mg/Dextrose 125 ml @ 0 mls/hr CONT PRN IV SEE I/O RECORD Last administered on 01/09/17 07:40; Start 01/09/17 at 07:30 Aspirin (Children'S Aspirin) 324 mg 1X ONCE PO Last administered on 01/09/17 08:15; Start 01/09/17 at 07:45; Stop 01/09/17 at 07:46; Status DC Darbepoetin Jerome (Aranesp) 60 mcg WEEKLYHS SQ Last administered on 01/09/17 21 :31; Start 01/09/17 at 21:00 Albumin Human 500 ml @ 125 mls/hr 1X ONCE IV Last administered on 01/09/17 13:02; Start 01/09/17 at 13:00; Stop 01/09/17 at 16:59; Status DC Albumin Human 500 ml @ 125 mls/hr 1X ONCE IV Last administered on 01/09/17 16:35; Start 01/09/17 at 16:00; Stop 01/09/17 at 19:59; Status DC Digoxin (Lanoxin) 500 mcg 1X ONCE IV Last administered on 01/09/17 13:03; Start 01/09/17 at 13:00; Stop 01/09/17 at 13:01; Status DC Sodium Chloride 1,000 ml @ 1,000 mls/hr Q1H PRN IV hypotension; Start 01/09/17 at 16:31; Stop 01/09/17 at 22:30; Status DC Sodium Chloride 1,000 ml @ 400 mls/hr Q2H30M PRN IV PATENCY; Start 01/09/17 at 16:31; Stop 01/10/17 at 04:30; Status DC Info (PHARMACY MONITORING -- do not chart) 1 each PRN DAILY PRN MC SEE COMMENTS ; Start 01/09/17 at 16:45; Status Cancel Fentanyl Citrate (Fentanyl 2ml Vial) 50 mcg PRN Q4HRS PRN IV PAIN Last administered on 01/09/17 17:52; Start 01/09/17 at 18:00 Oxycodone/ Acetaminophen (Percocet 5/325) 1 tab PRN Q4HRS PRN PO PAIN Last administered on 01/11/17 08:31; Start 01/09/17 at 18:00 Fentanyl Citrate (Fentanyl 2ml Vial) 50 mcg 1X ONCE IM ; Start 01/09/17 at 20: 00; Stop 01/09/17 at 20:01; Status Cancel Fentanyl Citrate (Fentanyl 2ml Vial) 50 mcg 1X ONCE IV Last administered on 19:57; Start 01/09/17 at 20:00; Stop 01/09/17 at 20:01; Status DC Allopurinol (Zyloprim) 100 mg DAILY PO Last administered on 01/13/17 08:49; Start 01/10/17 at 14:30 Aspirin (Ecotrin) 81 mg DAILY PO Last administered on 01/13/17 08:48; Start at 14:30 Atenolol (Tenormin) 50 mg DAILY PO Last administered on 01/12/17 09:09; Start 01/10/17 at 14:30; Stop 01/12/17 at 14:50; Status DC Calcium Acetate (Phoslo) 2,001 mg TIDWMEALS PO Last administered on 01/13/17 17:23; Start 01/10/17 at 17:00 Vitamin B Complex/ Vitamin C (Tsering-Ray) 1 tab HS PO Last administered on 22:24; Start 01/10/17 at 21:00 Gabapentin (Neurontin) 100 mg BID PO Last administered on 01/13/17 20:05; Start 01/10/17 at 14:30 Meloxicam (Mobic) 7.5 mg DAILY PO Last administered on 01/13/17 08:49; Start 01/10/17 at 14:30 Fish Oil (Fish Oil) 1,000 mg DAILY PO Last administered on 01/13/17 08:49; Start 01/11/17 at 09:00 Pantoprazole Sodium (Protonix) 40 mg DAILYAC PO Last administered on 01/13/17 08:48; Start 01/10/17 at 14:30 Digoxin (Lanoxin) 500 mcg 1X ONCE IV Last administered on 01/10/17 15:23; Start 01/10/17 at 15:30; Stop 01/10/17 at 15:31; Status DC Albumin Human 500 ml @ 125 mls/hr 1X ONCE IV Last administered on 01/10/17 15:22; Start 01/10/17 at 15:15; Stop 01/10/17 at 19:14; Status DC Lidocaine HCl (Xylocaine-Mpf 1% Vial) 2 ml STK-MED ONCE .ROUTE ; Start 01/11/17 at 08:47; Stop 01/11/17 at 08:48; Status DC Sodium Chloride 1,000 ml @ 1,000 mls/hr Q1H PRN IV hypotension; Start 01/11/17 at 08:55; Stop 01/11/17 at 14:54; Status DC Albumin Human 200 ml @ 200 mls/hr 1X PRN PRN IV Hypotension; Start 01/11/17 at 09:00; Stop 01/11/17 at 14:59; Status DC Acetaminophen (Tylenol) 500 mg 1X PRN PRN PO MILD PAIN / TEMP; Start 01/11/17 at 09:00; Stop 01/12/17 at 08:59; Status DC Diphenhydramine HCl (Benadryl) 25 mg 1X PRN PRN IV ITCHING Last administered on 01/11/17 13:30; Start 01/11/17 at 09:00; Stop 01/12/17 at 08:59; Status DC Info (PHARMACY MONITORING -- do not chart) 1 each PRN DAILY PRN MC SEE COMMENTS ; Start 01/11/17 at 09:00 Lidocaine HCl (Xylocaine-Mpf 1% Vial) 2 ml 1X ONCE INJ Last administered on 10:01; Start 01/11/17 at 09:00; Stop 01/11/17 at 09:02; Status DC Albumin Human 500 ml @ 125 mls/hr 1X ONCE IV Last administered on 01/11/17 11:50; Start 01/11/17 at 11:45; Stop 01/11/17 at 15:44; Status DC Nitroglycerin (Nitrostat) 0.4 mg STK-MED ONCE SL ; Start 01/11/17 at 12:07; Stop 01/11/17 at 12:08; Status DC Nitroglycerin (Nitrostat) 0.4 mg PRN Q5MIN PRN SL CHEST PAIN Last administered on 01/11/17 12:35; Start 01/11/17 at 12:15 Morphine Sulfate 3 mg 1X ONCE IV Last administered on 01/11/17 12:15; Start 01/11/17 at 12:15; Stop 01/11/17 at 12:16; Status DC Digoxin (Lanoxin) 250 mcg 1X ONCE IV Last administered on 01/11/17 12:34; Start 01/11/17 at 12:30; Stop 01/11/17 at 12:31; Status DC Fentanyl Citrate (Fentanyl 5ml Vial) 250 mcg STK-MED ONCE .ROUTE ; Start at 13:07; Stop 01/11/17 at 13:08; Status DC Midazolam HCl (Versed) 5 mg STK-MED ONCE .ROUTE ; Start 01/11/17 at 13:07; Stop 01/11/17 at 13:08; Status DC Iohexol (Omnipaque 350 Mg/ml) 100 ml STK-MED ONCE .ROUTE ; Start 01/11/17 at 13: 08; Stop 01/11/17 at 13:09; Status DC Heparin Sodium/ Sodium Chloride 500 ml @ As Directed STK-MED ONCE .ROUTE ; Start 01/11/17 at 13:09; Stop 01/11/17 at 13:10; Status DC Lidocaine HCl 20 ml STK-MED ONCE .ROUTE ; Start 01/11/17 at 13:09; Stop at 13:10; Status DC Heparin Sodium/ Sodium Chloride 1,000 unit 1X ONCE IART Last administered on 13:50; Start 01/11/17 at 13:45; Stop 01/11/17 at 13:46; Status DC Midazolam HCl (Versed) 1 mg 1X ONCE IV Last administered on 01/11/17 13:51; Start 01/11/17 at 13:45; Stop 01/11/17 at 13:46; Status DC Fentanyl Citrate (Fentanyl 5ml Vial) 50 mcg 1X ONCE IV Last administered on 13:51; Start 01/11/17 at 13:45; Stop 01/11/17 at 13:46; Status DC Iohexol (Omnipaque 350 Mg/ml) 81 ml 1X ONCE IART Last administered on 13:51; Start 01/11/17 at 13:45; Stop 01/11/17 at 13:46; Status DC Lidocaine HCl 12 ml 1X ONCE IJ Last administered on 01/11/17 13:50; Start at 13:45; Stop 01/11/17 at 13:46; Status DC Info (Do NOT chart on this entry -- for MONITORING) 1 each PRN DAILY PRN MC SEE COMMENTS; Start 01/11/17 at 14:00; Stop 01/13/17 at 13:59; Status DC Albumin Human 250 ml @ 62.5 mls/hr 1X ONCE IV Last administered on 01/11/17 14:15; Start 01/11/17 at 14:15; Stop 01/11/17 at 18:14; Status DC Digoxin (Lanoxin) 250 mcg 1X ONCE IV Last administered on 01/11/17 19:02; Start 01/11/17 at 18:45; Stop 01/11/17 at 18:46; Status DC Ondansetron HCl (Zofran) 8 mg PRN Q6HRS PRN IV NAUSEA/VOMITING Last administered on 01/11/17 18:43; Start 01/11/17 at 18:45 Enoxaparin Sodium (Lovenox 100mg Syringe) 90 mg Q24H SQ Last administered on 20:05; Start 01/11/17 at 20:00 Propafenone HCl (Rythmol) 75 mg BID PO Last administered on 01/12/17 20:42; Start 01/12/17 at 21:00 Norepinephrine Bitartrate 250 ml @ 0 mls/hr CONT PRN IV SEE I/O RECORD Last administered on 01/12/17 20:42; Start 01/12/17 at 15:45 Info (Anti-Coagulation Monitoring By Pharmacy) 1 each PRN DAILY PRN MC SEE COMMENTS Last administered on 01/14/17 13:16; Start 01/13/17 at 09:00 Magnesium Sulfate/ Dextrose 50 ml @ 25 mls/hr PRN DAILY PRN IV for Mag < 1.7 on am labs; Start 01/13/17 at 10:45 Sodium Chloride 1,000 ml @ 80 mls/hr [id number] IV Last administered on 10:50; Start 01/13/17 at 10:45 Sodium Chloride 500 ml @ 0 mls/hr QID PRN IV for MAP < 65 Last administered on 01/14/17 01:15; Start 01/13/17 at 10:45 Sodium Chloride 1,000 ml @ 1,000 mls/hr Q1H PRN IV hypotension; Start 01/14/17 at 09:11; Stop 01/14/17 at 15:10; Status DC Info (PHARMACY MONITORING -- do not chart) 1 each PRN DAILY PRN SEE COMMENTS ; Start 01/14/17 at 09:15; Status UNV Piperacillin Sod/ Tazobactam Sod 2.25 gm/Sodium Chloride 50 ml @ 100 mls/hr Q8HRS IV Last administered on 01/14/17 15:07; Start 01/14/17 at 12:30 Micafungin Sodium 100 mg/Dextrose 100 ml @ 100 mls/hr Q24H IV Last administered on 01/14/17 16:05; Start 01/14/17 at 13:00 Active Scripts Active Reported Ferric Citrate 210 Mg Tablet 210 Mg PO Meloxicam 7.5 Mg Tablet 1 Tab PO DAILY Atenolol 50 Mg Tablet 1 Tab PO DAILY Tylenol (Acetaminophen) 325 Mg Tablet 500 Mg PO PRN Q6HRS PRN Aspir 81 (Aspirin) 81 Mg Tablet. 1 Tab PO DAILY Fish Oil 1,000 Mg Capsule (Una-3 Fatty Acids/Fish Oil) 1 Each Capsule 1 Each PO BID Vitamin D2 (Ergocalciferol (Vitamin D2)) 50,000 Unit Capsule 50,000 Unit PO WEEKLY Allopurinol 100 Mg Tablet 1 Tab PO DAILY Nephro-Ray Tablet (Folic Acid/Vitamin B Comp W-C) 0.8 Mg Tablet 1 Tab PO HS Gabapentin 100 Mg Capsule 100 Mg PO BID Omeprazole 20 Mg Capsule. 20 Mg PO DAILY Calcium Acetate 667 Mg Capsule 2,001 Mg PO TIDWMEALS Allergies Allergies: Coded Allergies: ibuprofen (Verified Allergy, Intermediate, 02/29/16) "THINKS IT CAUSES HER KIDNEYS" I S O L A T I O N *CONTACT* (Verified Allergy, Unknown, 01/10/17) mrsa Vitals VITALS Vital Signs Date Time Temp Pulse Resp B/P (MAP) Pulse Ox O2 Delivery O2 Flow Rate FiO2 01/14/17 15:00 105 20 87/39 (55) 97 Nasal Cannula 2.0 01/14/17 12:00 98.0 98.0 Labs Labs Laboratory Tests Test 01/14/17 08:40 01/14/17 10:30 White Blood Count 19.9 x10^3/uL (4.0-11.0) Red Blood Count 3.16 x10^6/uL (3.50-5.40) Hemoglobin 11.0 g/dL (12.0-15.5) Hematocrit 33.7 % (36.0-47.0) Mean Corpuscular Volume 107 fL (79-100) Mean Corpuscular Hemoglobin 35 pg (25-35) Mean Corpuscular Hemoglobin Concent 33 g/dL (31-37) Red Cell Distribution Width 14.4 % (11.5-14.5) Platelet Count 104 x10^3/uL (140-400) Neutrophils (%) (Auto) 79 % (31-73) Lymphocytes (%) (Auto) 10 % (24-48) Monocytes (%) (Auto) 8 % (0-9) Eosinophils (%) (Auto) 2 % (0-3) Basophils (%) (Auto) 1 % (0-3) Neutrophils # (Auto) 15.7 x10^3uL (1.8-7.7) Lymphocytes # (Auto) 1.9 x10^3/uL (1.0-4.8) Monocytes # (Auto) 1.6 x10^3/uL (0.0-1.1) Eosinophils # (Auto) 0.4 x10^3/uL (0.0-0.7) Basophils # (Auto) 0.2 x10^3/uL (0.0-0.2) Sodium Level 131 mmol/L (136-145) Potassium Level 5.4 mmol/L (3.5-5.1) Chloride Level 100 mmol/L (98-107) Carbon Dioxide Level 20 mmol/L (21-32) Anion Gap 11 (6-14) Blood Urea Nitrogen 49 mg/dL (7-20) Creatinine 5.8 mg/dL (0.6-1.0) Estimated GFR (Cockcroft-Gault) 7.2 Glucose Level 118 mg/dL (70-99) Calcium Level 8.2 mg/dL (8.5-10.1) Phosphorus Level 4.8 mg/dL (2.6-4.7) Magnesium Level 2.3 mg/dL (1.8-2.4) Albumin 2.9 g/dL (3.4-5.0) Procalcitonin 1.92 ng/mL (0.00-0.10) Ammonia 31 mcmol/L (11-34) Laboratory Tests Test 01/14/17 08:40 01/14/17 10:30 White Blood Count 19.9 x10^3/uL (4.0-11.0) Red Blood Count 3.16 x10^6/uL (3.50-5.40) Hemoglobin 11.0 g/dL (12.0-15.5) Hematocrit 33.7 % (36.0-47.0) Mean Corpuscular Volume 107 fL (79-100) Mean Corpuscular Hemoglobin 35 pg (25-35) Mean Corpuscular Hemoglobin Concent 33 g/dL (31-37) Red Cell Distribution Width 14.4 % (11.5-14.5) Platelet Count 104 x10^3/uL (140-400) Neutrophils (%) (Auto) 79 % (31-73) Lymphocytes (%) (Auto) 10 % (24-48) Monocytes (%) (Auto) 8 % (0-9) Eosinophils (%) (Auto) 2 % (0-3) Basophils (%) (Auto) 1 % (0-3) Neutrophils # (Auto) 15.7 x10^3uL (1.8-7.7) Lymphocytes # (Auto) 1.9 x10^3/uL (1.0-4.8) Monocytes # (Auto) 1.6 x10^3/uL (0.0-1.1) Eosinophils # (Auto) 0.4 x10^3/uL (0.0-0.7) Basophils # (Auto) 0.2 x10^3/uL (0.0-0.2) Sodium Level 131 mmol/L (136-145) Potassium Level 5.4 mmol/L (3.5-5.1) Chloride Level 100 mmol/L (98-107) Carbon Dioxide Level 20 mmol/L (21-32) Anion Gap 11 (6-14) Blood Urea Nitrogen 49 mg/dL (7-20) Creatinine 5.8 mg/dL (0.6-1.0) Estimated GFR (Cockcroft-Gault) 7.2 Glucose Level 118 mg/dL (70-99) Calcium Level 8.2 mg/dL (8.5-10.1) Phosphorus Level 4.8 mg/dL (2.6-4.7) Magnesium Level 2.3 mg/dL (1.8-2.4) Albumin 2.9 g/dL (3.4-5.0) Procalcitonin 1.92 ng/mL (0.00-0.10) Ammonia 31 mcmol/L (11-34) TUNG COX MD Jan 14, 2017 16:16
--- NOTE | 2017-01-14 17:43 | CONS ---
DATE OF CONSULTATION: 01/14/2017 PATIENT'S ROOM: ICU 11. REQUESTING PHYSICIAN: Lazaro Fitzpatrick MD REASON FOR CONSULTATION: Encephalopathy and leukocytosis. HISTORY OF PRESENT ILLNESS: The patient is a pleasant 71-year-old female with history of chronic kidney disease, on hemodialysis. Her states approximately 12/24/2016 or so, she was seen in the outpatient setting and was diagnosed with a urinary tract infection, received an injection of antibiotics and then was placed on pills, and subsequently she improved greatly. They then went on a trip to [place], mainly did a lot of resting up there, not a lot of activity, no bug bites or tick bites, and returned approximately 12/31/2016 or so. The following day, she went to dialysis, but again began to feel weak around that time. Last week she went to dialysis and was told to come to the Emergency Room secondary to shortness of air and tachycardia. She was complaining of some severe neck and shoulder pain, some questionable swallowing problems. She underwent a CT scan of her neck as well as her abdomen and did not show any acute abnormalities. On arrival, her white blood cell count was 20, subsequently has increased to 20.2 and additionally her blood pressure has been low into the 70s/30s and now she is on 5 of Levophed. She underwent an arterial upper extremity out of concern that her AV fistula was not functioning, but there is no sign of any stenosis. Apparently, there were some complaints of some right-sided breast tenderness. An ultrasound was performed and it showed some edema, but no gross abnormalities. Chest x-ray performed showed some mild congestive heart failure today. She has been afebrile, but she again has been found to be in AFib with rapid ventricular response as well. Currently, she is undergoing dialysis, she feels weak. She states she has a little sore throat when she swallows and maybe some sinus discomfort, but no drainage. Denies any nausea or vomiting, has not made any urine recently. No complications with diarrhea. PAST MEDICAL HISTORY: Positive for hypertension, anemia, gout, chronic kidney disease on hemodialysis, diabetes, hyperparathyroidism. She does have a history of C. diff colitis. PAST SURGICAL HISTORY: Positive for pacemaker in left chest, cholecystectomy as well as hysterectomy. ALLERGIES: LISTED TO IBUPROFEN. REVIEW OF SYSTEMS: She has a little tenderness in the left side of her chest, but otherwise review of systems is otherwise negative. The tenderness is point tenderness. SOCIAL HISTORY: She is . Her is currently with her. FAMILY HISTORY: Noncontributory. CURRENT MEDICATIONS: Include Cardizem drip, mag sulfate, Levophed, allopurinol, aspirin, Aricept, Lovenox, Neurontin, Mobic, Protonix, Rythmol. Other meds are available and reviewed in the chart. PHYSICAL EXAMINATION: VITAL SIGNS: She is afebrile, blood pressure 75/37 currently on Levophed. She is on 2 liters of nasal cannula, satting 100% with a respiratory rate of 15, temperature 98. CONSTITUTIONAL: She is alert. She looks tired. She does answer questions. She is on nasal cannula. HEENT: Pupils are equal and reactive. Normal conjunctivae. Oral cavity, pharynx is clear. No signs of thrush. NECK: Supple, no JVD. LUNGS: Clear to auscultation bilaterally. HEART: S1, S2. ABDOMEN: Obese, soft, nontender, nondistended, positive bowel sounds. EXTREMITIES: No clubbing or cyanosis, no gross edema. She has a pacemaker in left chest. There is no erythema, there is no warmth, there is no fluctuance. There is a little point tenderness around the tip of her left breast area, no swelling. There is no radiation. AV fistula in left upper extremity without signs of complications. SKIN: Warm to touch without signs of rash. NEUROLOGIC: She is nonfocal, moves her extremities. LABORATORY DATA: White count 19.9, hemoglobin 11, platelets of 104 with 79% neutrophils, lymphs are 10. Glucose of 118. Ammonia was 31. She had normal liver function study tests essentially on arrival. Her methicillin-resistant Staphylococcus aureus screen was positive. IMPRESSION: 1. Questionable sepsis with hypotension and leukocytosis. 2. Leukocytosis. 3. Atrial fibrillation, rapid ventricular response. She did undergo a left heart cardiac catheterization, did not show any abnormalities on 01/11/2017. Echo performed showed ejection fraction of 70% with some sclerotic atrioventricular valve. Pulmonic valve appeared to be open and fine, a little pulmonary hypertension. Mitral valve with some moderate calcification. 4. Positive methicillin-resistant Staphylococcus aureus screen. 5. Recent urinary tract infection. 6. History of Clostridium difficile colitis. RECOMMENDATIONS: At this time, I will obtain a straight cath UA, C and S. I will obtain a procalcitonin. Follow blood cultures and add vancomycin, Zosyn, micafungin. Follow up labs in the a.m. This was discussed with her and reviewed the previous records, and 35 minutes critical care time. Dr. Fitzpatrick, thank you for allowing us to participate in this patient's care. Should you have any questions, please do not hesitate to contact me. NICK PUCKETT MD DR: EUSEBIA/obed JOB#: [id number] / [id number]
[2017-01-14] MEDS: FOLIC/VIT B COMP W-C (RENAL) TABLET. PO SCH (21:09)
[2017-01-15] VITALS (32 sets, daily range): BP systolic 81–121; BP diastolic 33–81
[2017-01-15] MEDS: NOREPINEPHRIN PREMIX 250 ML IV PRN ×2 (01:34→20:50)
[2017-01-15] MEDS: ONDANSETRON PF 4 MG/2 ML VIAL. IV PRN (04:04)
[2017-01-15] MEDS: PIPERACILLIN/TAZOBACTAM 2.25 GM in IV NORMAL SALINE 50ML 50 ML IV SCH ×3 (06:06→20:21)
[2017-01-15 06:55] LABS: BASO # 0.1 x10^3/uL (0.0-0.2); BASO % 1 % (0-3); EOS % 0 % (0-3); HEMATOCRIT 34.2 % (36.0-47.0); HEMOGLOBIN 10.7 g/dL (12.0-15.5); LYMPH # 1.7 x10^3/uL (1.0-4.8); LYMPH % 7 % (24-48); MEAN CORPUSCULAR HEMOGLOBIN 34 pg (25-35); MEAN CORPUSCULAR HGB CONC 31 g/dL (31-37); MEAN CORPUSCULAR VOLUME 110 fL (79-100); MONO % 7 % (0-9); NEUT % 85 % (31-73); PLATELET COUNT 66 x10^3/uL (140-400); RED BLOOD COUNT 3.13 x10^6/uL (3.50-5.40); RED CELL DISTRIBUTION WIDTH 14.4 % (11.5-14.5); WHITE BLOOD COUNT 23.1 x10^3/uL (4.0-11.0)
[2017-01-15 07:15] LABS: CALCIUM 8.3 mg/dL (8.5-10.1); CREATININE 4.1 mg/dL (0.6-1.0); GFR 10.7; PHOSPHORUS 4.7 mg/dL (2.6-4.7); POTASSIUM 5.3 mmol/L (3.5-5.1)
--- NOTE | 2017-01-15 07:23 | PDOC ---
Infectious Disease Note Subjective Subjective Moans. States she hurts "all over" ROS ROS Unreliable Vital Sign Vital Signs Vital Signs Date Time Temp Pulse Resp B/P (MAP) Pulse Ox O2 Delivery O2 Flow Rate FiO2 01/15/17 06:00 91 18 95/65 (75) 94 Nasal Cannula 2.0 01/15/17 04:00 97.7 97.7 Physical Exam PHYSICAL EXAM GENERAL: Alert but confused HEENT: PERRL, OC/OP- dry NECK: Supple, no JVD, no LN LUNGS: Clear HEART: S1S2, no gallop, no murmur ABD: Soft, NT, ND, no guard or rebound EXT: No edema, no cyanosis [employer]: Alert, cooperative in some respects ie opened her mouth SKIN: No rash IV: LUE fistula is clean Labs Lab Laboratory Tests Test 01/14/17 08:40 01/14/17 10:30 01/14/17 19:30 01/15/17 05:35 White Blood Count 19.9 x10^3/uL (4.0-11.0) 23.1 x10^3/uL (4.0-11.0) Red Blood Count 3.16 x10^6/uL (3.50-5.40) 3.13 x10^6/uL (3.50-5.40) Hemoglobin 11.0 g/dL (12.0-15.5) 10.7 g/dL (12.0-15.5) Hematocrit 33.7 % (36.0-47.0) 34.2 % (36.0-47.0) Mean Corpuscular Volume 107 fL (79-100) 110 fL (79-100) Mean Corpuscular Hemoglobin 35 pg (25-35) 34 pg (25-35) Mean Corpuscular Hemoglobin Concent 33 g/dL (31-37) 31 g/dL (31-37) Red Cell Distribution Width 14.4 % (11.5-14.5) 14.4 % (11.5-14.5) Platelet Count 104 x10^3/uL (140-400) 66 x10^3/uL (140-400) Neutrophils (%) (Auto) 79 % (31-73) 85 % (31-73) Lymphocytes (%) (Auto) 10 % (24-48) 7 % (24-48) Monocytes (%) (Auto) 8 % (0-9) 7 % (0-9) Eosinophils (%) (Auto) 2 % (0-3) 0 % (0-3) Basophils (%) (Auto) 1 % (0-3) 1 % (0-3) Neutrophils # (Auto) 15.7 x10^3uL (1.8-7.7) 19.6 x10^3uL (1.8-7.7) Lymphocytes # (Auto) 1.9 x10^3/uL (1.0-4.8) 1.7 x10^3/uL (1.0-4.8) Monocytes # (Auto) 1.6 x10^3/uL (0.0-1.1) 1.7 x10^3/uL (0.0-1.1) Eosinophils # (Auto) 0.4 x10^3/uL (0.0-0.7) 0.1 x10^3/uL (0.0-0.7) Basophils # (Auto) 0.2 x10^3/uL (0.0-0.2) 0.1 x10^3/uL (0.0-0.2) Sodium Level 131 mmol/L (136-145) Potassium Level 5.4 mmol/L (3.5-5.1) Chloride Level 100 mmol/L (98-107) Carbon Dioxide Level 20 mmol/L (21-32) Anion Gap 11 (6-14) Blood Urea Nitrogen 49 mg/dL (7-20) Creatinine 5.8 mg/dL (0.6-1.0) Estimated GFR (Cockcroft-Gault) 7.2 Glucose Level 118 mg/dL (70-99) Calcium Level 8.2 mg/dL (8.5-10.1) Phosphorus Level 4.8 mg/dL (2.6-4.7) Magnesium Level 2.3 mg/dL (1.8-2.4) Albumin 2.9 g/dL (3.4-5.0) Procalcitonin 1.92 ng/mL (0.00-0.10) Cortisol AM Sample 24.8 ug/dL (6.2-19.4) Ammonia 31 mcmol/L (11-34) Creatine Kinase 29 U/L (26-192) Vitamin B12 Level 1601 pg/mL (247-911) Objective Assessment ? sepsis - on 7 of levophed Leukocytosis -increased Encephalopathy - hasn't slept Generalized aches - no history of PMR or fibromyalgia per . no joint inflammation Afib RVR + MRSA screen Recent UTI H/o C-diff Plan Plan of Care CT chest/abd/pelvis with contrast Lactic acid/sed rate this am Needs central access Add Flagyl F/u blood cults Vanc/Zosyn/Micafungin F/u labs in am Critically ill D/w NICK PUCKETT MD Jan 15, 2017 07:23
[2017-01-15] MEDS: OMEGA-3 FATTY ACIDS/FISH OIL 1,000 MG CAPSULE. PO SCH (07:54)
[2017-01-15] MEDS: MELOXICAM 7.5 MG TABLET PO SCH (07:54)
[2017-01-15] MEDS: PANTOPRAZOLE 40 MG TABLET.DR. PO SCH (07:54)
[2017-01-15] MEDS: GABAPENTIN 100 MG CAPSULE. PO SCH ×2 (07:54→20:15)
[2017-01-15] MEDS: PROPAFENONE 150 MG TABLET. PO SCH ×3 (07:54→20:57)
[2017-01-15] MEDS: ASPIRIN ENTERIC COATED 81 MG TABLET.DR. PO SCH (07:55)
[2017-01-15] MEDS: CALCIUM ACETATE 667 MG CAPSULE PO SCH ×3 (07:56→17:00)
[2017-01-15] MEDS ORDERED: VANCOMYCIN 2 GM in IV NORMAL SALINE 500ML BAG 500 ML IV ONE (08:00)
[2017-01-15] MEDS ORDERED: IOHEXOL 300 MG/ML 75 ML VIAL IV ONE ×2 (08:00→12:15)
[2017-01-15] MEDS: ALLOPURINOL 100 MG TABLET. PO SCH (08:27)
[2017-01-15] MEDS ORDERED: LIDOCAINE 1% / SOD BICARB 8.4% 20 ML VIAL. IJ ONE (08:30)
--- NOTE | 2017-01-15 09:09 | RAD ---
CT scan of the head without contrast 01/14/2017 Clinical History: Confusion. Mental status changes.. Technique: Unenhanced, contiguous, 5 mm axial sections were obtained through the head. One or more of the following individualized dose reduction techniques were utilized for this study: 1. Automated exposure control. 2. Adjustment of the mA and/or kV according to patient size. 3. Use of iterative reconstruction technique. Findings: Comparison study is dated 05/16/2016. There is generalized parenchymal atrophy. Small scattered areas of decreased attenuation are seen within the periventricular and subcortical white matter of both cerebral hemispheres consistent with areas of small vessel ischemic disease. No acute parenchymal abnormality is seen. No extra-axial fluid collection is noted. No skull fracture is seen. Impression: No acute intracranial abnormality is seen.
--- NOTE | 2017-01-15 10:12 | PDOC ---
PROGRESS NOTES Subjective Subjective Patient is more alert today, c/o pain "ache all over". Continues to have poor appetite. Continues to be in atrial fibrillation with hypotension. Objective Objective Vital Signs Date Time Temp Pulse Resp B/P (MAP) Pulse Ox O2 Delivery O2 Flow Rate FiO2 01/15/17 09:00 92 20 96/58 (71) 99 Nasal Cannula 2.0 01/15/17 08:00 97.9 97.9 Physical Exam Abdomen: Soft, No tenderness Heart: Other (Irregularly irregular. Normal S1 and S2, no S3, no S4. No murmurs ) General: Alert, Other (confused) HEENT: PERRLA, Other (mucus membranes dry) Lungs: Clear to auscultation Neck: Supple, No JVD Assessment Assessment Problems Medical Problems: (1) Non-STEMI (non-ST elevated myocardial infarction) Status: Acute Plan Plan of Care 1. Atrial fibrillation - Continue Rythmol for now, if not controlled will consider switching to Amiodarone 2. Hypotension - Possible Sepsis. Current medications reviewed. Continue IV fluids. Continue pressors for now. 3. Leukocytosis - WBC 12.0 on admission, 23.1 today - ID consulted, appreciate input - Currently on Vancomycin, Zosyn, Flagyl, Micafungin - f/u labs in the AM - Blood cultures pending - Urine culture pending 4. Possible breast mass - R breast US 01/14: Edema throughout right breast. No solid or cystic mass seen. 5. ESRD - Nephrology following, appreciate input. HD scheduled for today. 6. Anemia - Nephrology following, patient on Aranesp Dispo: Continue inpatient admission to ICU Comment Review of Relevant I have reviewed the following items michelle (where applicable) has been applied. Labs Laboratory Tests Test 01/14/17 08:40 01/14/17 10:30 01/14/17 19:30 01/15/17 05:35 White Blood Count 19.9 x10^3/uL (4.0-11.0) 23.1 x10^3/uL (4.0-11.0) Red Blood Count 3.16 x10^6/uL (3.50-5.40) 3.13 x10^6/uL (3.50-5.40) Hemoglobin 11.0 g/dL (12.0-15.5) 10.7 g/dL (12.0-15.5) Hematocrit 33.7 % (36.0-47.0) 34.2 % (36.0-47.0) Mean Corpuscular Volume 107 fL (79-100) 110 fL (79-100) Mean Corpuscular Hemoglobin 35 pg (25-35) 34 pg (25-35) Mean Corpuscular Hemoglobin Concent 33 g/dL (31-37) 31 g/dL (31-37) Red Cell Distribution Width 14.4 % (11.5-14.5) 14.4 % (11.5-14.5) Platelet Count 104 x10^3/uL (140-400) 66 x10^3/uL (140-400) Neutrophils (%) (Auto) 79 % (31-73) 85 % (31-73) Lymphocytes (%) (Auto) 10 % (24-48) 7 % (24-48) Monocytes (%) (Auto) 8 % (0-9) 7 % (0-9) Eosinophils (%) (Auto) 2 % (0-3) 0 % (0-3) Basophils (%) (Auto) 1 % (0-3) 1 % (0-3) Neutrophils # (Auto) 15.7 x10^3uL (1.8-7.7) 19.6 x10^3uL (1.8-7.7) Lymphocytes # (Auto) 1.9 x10^3/uL (1.0-4.8) 1.7 x10^3/uL (1.0-4.8) Monocytes # (Auto) 1.6 x10^3/uL (0.0-1.1) 1.7 x10^3/uL (0.0-1.1) Eosinophils # (Auto) 0.4 x10^3/uL (0.0-0.7) 0.1 x10^3/uL (0.0-0.7) Basophils # (Auto) 0.2 x10^3/uL (0.0-0.2) 0.1 x10^3/uL (0.0-0.2) Sodium Level 131 mmol/L (136-145) 135 mmol/L (136-145) Potassium Level 5.4 mmol/L (3.5-5.1) 5.3 mmol/L (3.5-5.1) Chloride Level 100 mmol/L (98-107) 95 mmol/L (98-107) Carbon Dioxide Level 20 mmol/L (21-32) 24 mmol/L (21-32) Anion Gap 11 (6-14) 16 (6-14) Blood Urea Nitrogen 49 mg/dL (7-20) 28 mg/dL (7-20) Creatinine 5.8 mg/dL (0.6-1.0) 4.1 mg/dL (0.6-1.0) Estimated GFR (Cockcroft-Gault) 7.2 10.7 Glucose Level 118 mg/dL (70-99) 119 mg/dL (70-99) Calcium Level 8.2 mg/dL (8.5-10.1) 8.3 mg/dL (8.5-10.1) Phosphorus Level 4.8 mg/dL (2.6-4.7) 4.7 mg/dL (2.6-4.7) Magnesium Level 2.3 mg/dL (1.8-2.4) 2.3 mg/dL (1.8-2.4) Albumin 2.9 g/dL (3.4-5.0) 3.0 g/dL (3.4-5.0) Procalcitonin 1.92 ng/mL (0.00-0.10) Cortisol AM Sample 24.8 ug/dL (6.2-19.4) Ammonia 31 mcmol/L (11-34) Creatine Kinase 29 U/L (26-192) Vitamin B12 Level 1601 pg/mL (247-911) Erythrocyte Sedimentation Rate 23 (0-25) Laboratory Tests Test 01/14/17 10:30 01/14/17 19:30 01/15/17 05:35 Ammonia 31 mcmol/L (11-34) Creatine Kinase 29 U/L (26-192) Vitamin B12 Level 1601 pg/mL (247-911) White Blood Count 23.1 x10^3/uL (4.0-11.0) Red Blood Count 3.13 x10^6/uL (3.50-5.40) Hemoglobin 10.7 g/dL (12.0-15.5) Hematocrit 34.2 % (36.0-47.0) Mean Corpuscular Volume 110 fL (79-100) Mean Corpuscular Hemoglobin 34 pg (25-35) Mean Corpuscular Hemoglobin Concent 31 g/dL (31-37) Red Cell Distribution Width 14.4 % (11.5-14.5) Platelet Count 66 x10^3/uL (140-400) Neutrophils (%) (Auto) 85 % (31-73) Lymphocytes (%) (Auto) 7 % (24-48) Monocytes (%) (Auto) 7 % (0-9) Eosinophils (%) (Auto) 0 % (0-3) Basophils (%) (Auto) 1 % (0-3) Neutrophils # (Auto) 19.6 x10^3uL (1.8-7.7) Lymphocytes # (Auto) 1.7 x10^3/uL (1.0-4.8) Monocytes # (Auto) 1.7 x10^3/uL (0.0-1.1) Eosinophils # (Auto) 0.1 x10^3/uL (0.0-0.7) Basophils # (Auto) 0.1 x10^3/uL (0.0-0.2) Erythrocyte Sedimentation Rate 23 (0-25) Sodium Level 135 mmol/L (136-145) Potassium Level 5.3 mmol/L (3.5-5.1) Chloride Level 95 mmol/L (98-107) Carbon Dioxide Level 24 mmol/L (21-32) Anion Gap 16 (6-14) Blood Urea Nitrogen 28 mg/dL (7-20) Creatinine 4.1 mg/dL (0.6-1.0) Estimated GFR (Cockcroft-Gault) 10.7 Glucose Level 119 mg/dL (70-99) Calcium Level 8.3 mg/dL (8.5-10.1) Phosphorus Level 4.7 mg/dL (2.6-4.7) Magnesium Level 2.3 mg/dL (1.8-2.4) Albumin 3.0 g/dL (3.4-5.0) Microbiology 01/14/17 Blood Culture - Final, Complete Medications Current Medications Sodium Chloride 500 ml @ 500 mls/hr 1X ONCE IV Last administered on t 06:45; Start 01/09/17 at 06:45; Stop 01/09/17 at 07:44; Status DC Diltiazem HCl (Cardizem) 10 mg 1X ONCE IVP Last administered on 01/09/17 07: 39; Start 01/09/17 at 07:30; Stop 01/09/17 at 07:31; Status DC Diltiazem HCl 125 mg/Dextrose 125 ml @ 0 mls/hr CONT PRN IV SEE I/O RECORD Last administered on 01/09/17 07:40; Start 01/09/17 at 07:30 Aspirin (Children'S Aspirin) 324 mg 1X ONCE PO Last administered on 01/09/17 08:15; Start 01/09/17 at 07:45; Stop 01/09/17 at 07:46; Status DC Darbepoetin Jerome (Aranesp) 60 mcg WEEKLYHS SQ Last administered on 01/09/17 21 :31; Start 01/09/17 at 21:00 Albumin Human 500 ml @ 125 mls/hr 1X ONCE IV Last administered on 01/09/17 13:02; Start 01/09/17 at 13:00; Stop 01/09/17 at 16:59; Status DC Albumin Human 500 ml @ 125 mls/hr 1X ONCE IV Last administered on 01/09/17 16:35; Start 01/09/17 at 16:00; Stop 01/09/17 at 19:59; Status DC Digoxin (Lanoxin) 500 mcg 1X ONCE IV Last administered on 01/09/17 13:03; Start 01/09/17 at 13:00; Stop 01/09/17 at 13:01; Status DC Sodium Chloride 1,000 ml @ 1,000 mls/hr Q1H PRN IV hypotension; Start 01/09/17 at 16:31; Stop 01/09/17 at 22:30; Status DC Sodium Chloride 1,000 ml @ 400 mls/hr Q2H30M PRN IV PATENCY; Start 01/09/17 at 16:31; Stop 01/10/17 at 04:30; Status DC Info (PHARMACY MONITORING -- do not chart) 1 each PRN DAILY PRN MC SEE COMMENTS ; Start 01/09/17 at 16:45; Status Cancel Fentanyl Citrate (Fentanyl 2ml Vial) 50 mcg PRN Q4HRS PRN IV PAIN Last administered on 01/09/17 17:52; Start 01/09/17 at 18:00 Oxycodone/ Acetaminophen (Percocet 5/325) 1 tab PRN Q4HRS PRN PO PAIN Last administered on 01/11/17 08:31; Start 01/09/17 at 18:00 Fentanyl Citrate (Fentanyl 2ml Vial) 50 mcg 1X ONCE IM ; Start 01/09/17 at 20: 00; Stop 01/09/17 at 20:01; Status Cancel Fentanyl Citrate (Fentanyl 2ml Vial) 50 mcg 1X ONCE IV Last administered on 19:57; Start 01/09/17 at 20:00; Stop 01/09/17 at 20:01; Status DC Allopurinol (Zyloprim) 100 mg DAILY PO Last administered on 01/13/17 08:49; Start 01/10/17 at 14:30 Aspirin (Ecotrin) 81 mg DAILY PO Last administered on 01/15/17 07:55; Start at 14:30 Atenolol (Tenormin) 50 mg DAILY PO Last administered on 01/12/17 09:09; Start 01/10/17 at 14:30; Stop 01/12/17 at 14:50; Status DC Calcium Acetate (Phoslo) 2,001 mg TIDWMEALS PO Last administered on 01/13/17 17:23; Start 01/10/17 at 17:00 Vitamin B Complex/ Vitamin C (Tsering-Ray) 1 tab HS PO Last administered on 22:24; Start 01/10/17 at 21:00 Gabapentin (Neurontin) 100 mg BID PO Last administered on 01/15/17 07:54; Start 01/10/17 at 14:30 Meloxicam (Mobic) 7.5 mg DAILY PO Last administered on 01/15/17 07:54; Start 01/10/17 at 14:30 Fish Oil (Fish Oil) 1,000 mg DAILY PO Last administered on 01/15/17 07:54; Start 01/11/17 at 09:00 Pantoprazole Sodium (Protonix) 40 mg DAILYAC PO Last administered on 01/15/17 07:54; Start 01/10/17 at 14:30 Digoxin (Lanoxin) 500 mcg 1X ONCE IV Last administered on 01/10/17 15:23; Start 01/10/17 at 15:30; Stop 01/10/17 at 15:31; Status DC Albumin Human 500 ml @ 125 mls/hr 1X ONCE IV Last administered on 01/10/17 15:22; Start 01/10/17 at 15:15; Stop 01/10/17 at 19:14; Status DC Lidocaine HCl (Xylocaine-Mpf 1% Vial) 2 ml STK-MED ONCE .ROUTE ; Start 01/11/17 at 08:47; Stop 01/11/17 at 08:48; Status DC Sodium Chloride 1,000 ml @ 1,000 mls/hr Q1H PRN IV hypotension; Start 01/11/17 at 08:55; Stop 01/11/17 at 14:54; Status DC Albumin Human 200 ml @ 200 mls/hr 1X PRN PRN IV Hypotension; Start 01/11/17 at 09:00; Stop 01/11/17 at 14:59; Status DC Acetaminophen (Tylenol) 500 mg 1X PRN PRN PO MILD PAIN / TEMP; Start 01/11/17 at 09:00; Stop 01/12/17 at 08:59; Status DC Diphenhydramine HCl (Benadryl) 25 mg 1X PRN PRN IV ITCHING Last administered on 01/11/17 13:30; Start 01/11/17 at 09:00; Stop 01/12/17 at 08:59; Status DC Info (PHARMACY MONITORING -- do not chart) 1 each PRN DAILY PRN MC SEE COMMENTS ; Start 01/11/17 at 09:00 Lidocaine HCl (Xylocaine-Mpf 1% Vial) 2 ml 1X ONCE INJ Last administered on 10:01; Start 01/11/17 at 09:00; Stop 01/11/17 at 09:02; Status DC Albumin Human 500 ml @ 125 mls/hr 1X ONCE IV Last administered on 01/11/17 11:50; Start 01/11/17 at 11:45; Stop 01/11/17 at 15:44; Status DC Nitroglycerin (Nitrostat) 0.4 mg STK-MED ONCE SL ; Start 01/11/17 at 12:07; Stop 01/11/17 at 12:08; Status DC Nitroglycerin (Nitrostat) 0.4 mg PRN Q5MIN PRN SL CHEST PAIN Last administered on 01/11/17 12:35; Start 01/11/17 at 12:15 Morphine Sulfate 3 mg 1X ONCE IV Last administered on 01/11/17 12:15; Start 01/11/17 at 12:15; Stop 01/11/17 at 12:16; Status DC Digoxin (Lanoxin) 250 mcg 1X ONCE IV Last administered on 01/11/17 12:34; Start 01/11/17 at 12:30; Stop 01/11/17 at 12:31; Status DC Fentanyl Citrate (Fentanyl 5ml Vial) 250 mcg STK-MED ONCE .ROUTE ; Start at 13:07; Stop 01/11/17 at 13:08; Status DC Midazolam HCl (Versed) 5 mg STK-MED ONCE .ROUTE ; Start 01/11/17 at 13:07; Stop 01/11/17 at 13:08; Status DC Iohexol (Omnipaque 350 Mg/ml) 100 ml STK-MED ONCE .ROUTE ; Start 01/11/17 at 13: 08; Stop 01/11/17 at 13:09; Status DC Heparin Sodium/ Sodium Chloride 500 ml @ As Directed STK-MED ONCE .ROUTE ; Start 01/11/17 at 13:09; Stop 01/11/17 at 13:10; Status DC Lidocaine HCl 20 ml STK-MED ONCE .ROUTE ; Start 01/11/17 at 13:09; Stop at 13:10; Status DC Heparin Sodium/ Sodium Chloride 1,000 unit 1X ONCE IART Last administered on 13:50; Start 01/11/17 at 13:45; Stop 01/11/17 at 13:46; Status DC Midazolam HCl (Versed) 1 mg 1X ONCE IV Last administered on 01/11/17 13:51; Start 01/11/17 at 13:45; Stop 01/11/17 at 13:46; Status DC Fentanyl Citrate (Fentanyl 5ml Vial) 50 mcg 1X ONCE IV Last administered on 13:51; Start 01/11/17 at 13:45; Stop 01/11/17 at 13:46; Status DC Iohexol (Omnipaque 350 Mg/ml) 81 ml 1X ONCE IART Last administered on 13:51; Start 01/11/17 at 13:45; Stop 01/11/17 at 13:46; Status DC Lidocaine HCl 12 ml 1X ONCE IJ Last administered on 01/11/17 13:50; Start at 13:45; Stop 01/11/17 at 13:46; Status DC Info (Do NOT chart on this entry -- for MONITORING) 1 each PRN DAILY PRN MC SEE COMMENTS; Start 01/11/17 at 14:00; Stop 01/13/17 at 13:59; Status DC Albumin Human 250 ml @ 62.5 mls/hr 1X ONCE IV Last administered on 01/11/17 14:15; Start 01/11/17 at 14:15; Stop 01/11/17 at 18:14; Status DC Digoxin (Lanoxin) 250 mcg 1X ONCE IV Last administered on 01/11/17 19:02; Start 01/11/17 at 18:45; Stop 01/11/17 at 18:46; Status DC Ondansetron HCl (Zofran) 8 mg PRN Q6HRS PRN IV NAUSEA/VOMITING Last administered on 01/15/17 04:04; Start 01/11/17 at 18:45 Enoxaparin Sodium (Lovenox 100mg Syringe) 90 mg Q24H SQ Last administered on 21:09; Start 01/11/17 at 20:00 Propafenone HCl (Rythmol) 75 mg BID PO Last administered on 01/15/17 07:54; Start 01/12/17 at 21:00 Norepinephrine Bitartrate 250 ml @ 0 mls/hr CONT PRN IV SEE I/O RECORD Last administered on 01/15/17 01:34; Start 01/12/17 at 15:45 Info (Anti-Coagulation Monitoring By Pharmacy) 1 each PRN DAILY PRN MC SEE COMMENTS Last administered on 01/14/17 13:16; Start 01/13/17 at 09:00 Magnesium Sulfate/ Dextrose 50 ml @ 25 mls/hr PRN DAILY PRN IV for Mag < 1.7 on am labs; Start 01/13/17 at 10:45 Sodium Chloride 1,000 ml @ 80 mls/hr [id number] IV Last administered on 10:50; Start 01/13/17 at 10:45; Stop 01/14/17 at 19:07; Status DC Sodium Chloride 500 ml @ 0 mls/hr QID PRN IV for MAP < 65 Last administered on 01/14/17 01:15; Start 01/13/17 at 10:45 Sodium Chloride 1,000 ml @ 1,000 mls/hr Q1H PRN IV hypotension; Start 01/14/17 at 09:11; Stop 01/14/17 at 15:10; Status DC Info (PHARMACY MONITORING -- do not chart) 1 each PRN DAILY PRN MC SEE COMMENTS ; Start 01/14/17 at 09:15; Status UNV Piperacillin Sod/ Tazobactam Sod 2.25 gm/Sodium Chloride 50 ml @ 100 mls/hr Q8HRS IV Last administered on 01/15/17 06:06; Start 01/14/17 at 12:30 Micafungin Sodium 100 mg/Dextrose 100 ml @ 100 mls/hr Q24H IV Last administered on 01/14/17 16:05; Start 01/14/17 at 13:00 Vancomycin HCl (Vanco Per Pharmacy) 1 each PRN DAILY PRN MC SEE COMMENTS; Start 01/15/17 at 07:15 Vancomycin HCl 2 gm/Sodium Chloride 500 ml @ 250 mls/hr 1X ONCE IV Last administered on 01/15/17 07:55; Start 01/15/17 at 08:00; Stop 01/15/17 at 09:59 ; Status DC Metronidazole 100 ml @ 100 mls/hr Q8H IV ; Start 01/15/17 at 08:00 Iohexol (Omnipaque 300 Mg/ml) 75 ml 1X ONCE IV ; Start 01/15/17 at 08:00; Stop 01/15/17 at 08:01; Status DC Lidocaine/Sodium Bicarbonate (Buffered Lidocaine 1%) 3 ml 1X ONCE IJ Last administered on 01/15/17 09:00; Start 01/15/17 at 08:30; Stop 01/15/17 at 08:32 ; Status DC Heparin Sodium/ Sodium Chloride 60 unit 1X ONCE IV Last administered on 09:01; Start 01/15/17 at 08:30; Stop 01/15/17 at 08:32; Status DC Active Scripts Active Reported Ferric Citrate 210 Mg Tablet 210 Mg PO Meloxicam 7.5 Mg Tablet 1 Tab PO DAILY Atenolol 50 Mg Tablet 1 Tab PO DAILY Tylenol (Acetaminophen) 325 Mg Tablet 500 Mg PO PRN Q6HRS PRN Aspir 81 (Aspirin) 81 Mg Tablet.dr 1 Tab PO DAILY Fish Oil 1,000 Mg Capsule ([place]-3 Fatty Acids/Fish Oil) 1 Each Capsule 1 Each PO BID Vitamin D2 (Ergocalciferol (Vitamin D2)) 50,000 Unit Capsule 50,000 Unit PO WEEKLY Allopurinol 100 Mg Tablet 1 Tab PO DAILY Nephro-Ray Tablet (Folic Acid/Vitamin B Comp W-C) 0.8 Mg Tablet 1 Tab PO HS Gabapentin 100 Mg Capsule 100 Mg PO BID Omeprazole 20 Mg Capsule.dr 20 Mg PO DAILY Calcium Acetate 667 Mg Capsule 2,001 Mg PO TIDWMEALS Vitals/I & O Vital Sign - Last 24 Hours 01/14/17 01/14/17 01/14/17 01/14/17 11:00 12:00 12:00 13:00 Temp 98.0 98.0 Pulse 110 106 118 Resp 16 15 17 B/P (MAP) 94/46 (62) 75/37 (50) 84/58 (67) Pulse Ox 100 100 98 O2 Delivery Nasal Cannula Nasal Cannula Nasal Cannula Nasal Cannula O2 Flow Rate 2.0 2.0 2.0 2.0 01/14/17 01/14/17 01/14/17 01/14/17 14:00 15:00 16:00 16:00 Temp 98.2 98.2 Pulse 116 105 108 Resp 17 20 18 B/P (MAP) 109/45 (66) 87/39 (55) 89/42 (58) Pulse Ox 99 97 98 O2 Delivery Nasal Cannula Nasal Cannula Nasal Cannula Nasal Cannula O2 Flow Rate 2.0 2.0 2.0 2.0 01/14/17 01/14/17 01/14/17 01/14/17 17:00 18:00 20:15 20:15 Temp 97.4 97.4 Pulse 97 102 102 Resp 22 19 13 B/P (MAP) 119/37 (64) 114/45 (68) 111/58 (75) Pulse Ox 96 98 96 O2 Delivery Nasal Cannula Nasal Cannula Nasal Cannula Nasal Cannula O2 Flow Rate 2.0 2.0 2.0 2.0 01/14/17 01/14/17 01/14/17 01/14/17 20:33 21:00 21:15 22:00 Pulse 96 100 100 110 Resp 04 29 14 17 B/P (MAP) 113/47 (69) 103/44 (63) 114/45 (68) 123/38 (66) Pulse Ox 97 99 95 97 O2 Delivery Nasal Cannula Nasal Cannula Nasal Cannula Nasal Cannula O2 Flow Rate 2.0 2.0 2.0 2.0 01/14/17 01/15/17 01/15/17 01/15/17 23:00 00:00 00:00 01:00 Temp 97.4 97.4 Pulse 96 106 81 Resp 13 12 23 B/P (MAP) 117/46 (69) 114/54 (74) 114/44 (67) Pulse Ox 97 96 95 O2 Delivery Nasal Cannula Nasal Cannula Nasal Cannula Nasal Cannula O2 Flow Rate 2.0 2.0 2.0 2.0 01/15/17 01/15/17 01/15/17 01/15/17 02:00 03:00 04:00 04:00 Temp 97.7 97.7 Pulse 81 102 102 Resp 17 16 B/P (MAP) 102/42 (62) 113/41 (65) 108/47 (67) Pulse Ox 96 96 95 O2 Delivery Nasal Cannula Nasal Cannula Nasal Cannula Nasal Cannula O2 Flow Rate 2.0 2.0 2.0 2.0 01/15/17 01/15/17 01/15/17 01/15/17 05:00 06:00 07:00 07:54 Pulse 91 91 88 97 Resp 24 18 28 B/P (MAP) 118/41 (66) 95/65 (75) 119/41 (67) 119/41 Pulse Ox 93 94 96 O2 Delivery Nasal Cannula Nasal Cannula Nasal Cannula O2 Flow Rate 2.0 2.0 2.0 01/15/17 01/15/17 01/15/17 08:00 08:00 09:00 Temp 97.9 97.9 Pulse 105 92 Resp 20 20 B/P (MAP) 116/81 (93) 96/58 (71) Pulse Ox 97 99 O2 Delivery Nasal Cannula Nasal Cannula Nasal Cannula O2 Flow Rate 2.0 2.0 2.0 MIGUEL A,INEZ D MD Jan 15, 2017 10:12
--- NOTE | 2017-01-15 10:12 | RAD ---
Exam performed: One view chest. History: Verify line placement. Date of service: 01/15/17. Comparison: Single view chest from 01/14/17. Single AP upright portable view chest findings: Placement of a right IJ central line with its tip just distal to the atriocaval junction. No pneumothorax. Cardiomegaly and increasing central vascular congestion. There is also small right pleural effusion and right basilar opacity. Bipolar pacemaker. Impression: Mild cardiomegaly with increasing CHF Placement of a right IJ central line with its tip distal to the atriocaval junction. No pneumothorax
[2017-01-15] MEDS ORDERED: CONTRAST GIVEN MC PRN (12:15)
--- NOTE | 2017-01-15 13:38 | EEG ---
DATE OF SERVICE: 01/15/2017 OBJECTIVE: This is a 71-year-old female patient with history of mental status changes, unresponsiveness, and respiratory failure. EEG was requested to evaluate cerebral activity. METHODS: Twenty electrodes were applied according to the international 10-20 electrode placement system. EKG monitoring, hyperventilation, intermittent photic stimulation, monopolar and bipolar montages are routinely utilized. The record was obtained on a digital system with video monitoring. FINDINGS: 1. Background: The patient was recorded in the unresponsive state. No physiological awake, drowsy, and sleep states were recorded. The overall background amplitude is variable. No posterior dominant rhythm is observed. The overall background rhythm is disorganized and is with diffuse slowing in theta and delta frequencies throughout the entire recording. 2. Abnormalities: There are frequent sharp waves noted especially at O1 region. Triphasic waves noted throughout the entire recording. Short run PLEDs also noted. No electrographic seizure is seen. 3. Activation: Hyperventilation was not performed because the patient was unresponsive. Intermittent photic stimulation was performed without photic driving. IMPRESSION: This EEG is an abnormal study for the unresponsive state. No physiological awake, drowsy, and sleep states were recorded. No posterior dominant rhythm is observed. Diffuse slowing mainly in the theta and delta frequency is throughout the entire recording. High amplitude sharp waves noted especially at left occipital region. Triphasic waves are noted in bilateral hemispherical regions throughout the entire recording. Suspect short run PLEDs also noted. This pattern of EEG is suggestive of cerebral dysfunction, diffuse encephalopathy and at increased risk of seizure. TUNG COX MD DR: TODD/obed JOB#: [id number] / [id number] MTDD
--- NOTE | 2017-01-15 14:00 | RAD ---
Procedure: Ultrasound guided Central line placement Clinical Indication: Patient requiring central venous access Sedation: None Antibiotics: None Fluoro Time: None Contrast: None Sterility: All elements of maximal sterile barrier technique including the use of a cap, mask, sterile gown, sterile gloves, large sterile sheet, appropriate hand hygiene, and 2% chlorhexidine for cutaneous antisepsis (or acceptable alternative antiseptic per current guidelines) were followed for this procedure. Consent: The procedure was explained in its entirety to the patient or the patients designated office services representative by a member of the treatment team, including a discussion of the risks, benefits and commonly accepted alternatives to the procedure, as well as the expected consequences of no therapy whatsoever. Discussion of the risks included, but was not limited to, those that are most frequent and those that are rare but possibly severe or life-threatening, as well as the possibility of unforeseen complications. Technique and Findings: Following informed consent, the patient was prepped and draped in usual sterile fashion. Ultrasound interrogation of the right neck revealed patency and compressibility of the targeted jugular vein. A hard copy ultrasound image was recorded as a 21-gauge micro puncture needle was used to gain access to this vein with a single stick. The needle was exchanged over a wire for a small dilator followed by a triple lumen central line. All 3 lumens flushed and aspirated with ease and the catheter was sutured to the skin. Complications: No immediate Impression: 1. Central line placement as described
--- NOTE | 2017-01-15 14:01 | RAD ---
Exam performed: Nuclear medicine whole-body bone scan. Indication: Neck and joint pain Date of Service: 01/15/17 Comparison:None available Discussion: Following the intravenous administration of 25.0 mCi of MDP labeled with Technetium, delayed whole-body gamma camera images of the axial and appendicular skeleton were obtained. There is symmetric excretion of radiotracer via both kidneys with accumulation in the urinary bladder. Mild degenerative pattern of activity seen in both shoulders There is normal distribution of the radionuclide without abnormal areas of increased or decreased accumulation. Impression: Mild degenerative pattern of activity seen in both shoulders. No suspicious abnormality seen
[2017-01-15] MEDS: VANCOMYCIN PER PHARMACY MC PRN (14:29)
[2017-01-15] MEDS: MICAFUNGIN 100 MG in IV DEXTROSE 5% 100 ML IV SCH (14:32)
--- NOTE | 2017-01-15 15:22 | RAD ---
Exam performed: CT chest, abdomen and pelvis with contrast. History: Sepsis. Date of service: 01/15/17. Comparison: None available Technique: Contiguous helical acquisitions are obtained through the chest, abdomen and pelvis during intravenous administration of 75 cc of Omnipaque 300. Sagittal and coronal reformatted images are obtained and reviewed. CT chest findings: Structures at the thoracic inlet including both lobes of the thyroid gland are normal. The neck and intrathoracic great vessels appear normal in course and caliber. Diffuse atheromatous calcification of the aorta and coronary arteries is seen. Central airways patent without endoluminal lesions. No dominant mediastinal or hilar adenopathy is seen. The central airways patent without endoluminal lesions. Heart size is normal without pericardial effusion. Bibasal atelectasis and small bilateral pleural effusions are noted. Interrogation of bone windows is essentially unremarkable. Diffuse calcification of the anterior spinous ligament noted. Impression: 1. Bibasal atelectasis and small bilateral pleural effusions. 2. Diffuse atheromatous aortic and coronary calcification. End impression. CT abdomen and pelvis findings: Liver is normal in size and attenuation. Small perihepatic ascites. Mild splenomegaly. There is a focal area of low-attenuation measuring 4.7 x 3.6 x 3.6 cm in maximum transverse, AP and craniocaudal dimension in the anterosuperior aspect of the spleen. Cholecystectomy. Spleen appears normal. Both adrenal glands and bilateral kidneys are normal in size with symmetric excretion of contrast via both kidneys. Bilateral renal cortical atrophy is seen. There is a punctate 2 mm nonobstructing calculus in the right kidney. Diffuse atheromatous aortic calcification. No retroperitoneal or mesenteric lymphadenopathy seen. Small and large bowel loops appear grossly unremarkable The urinary bladder is decompressed. Small pelvic ascites. Sigmoid diverticulosis without acute diverticulitis. Uterus is not seen. Pelvic ascites. Sigmoid diverticulosis generalized anasarca with a more focal area of inflammatory changes in the right flank. Spondylotic changes. Impression: 1. Small perihepatic and pelvic ascites. 2. Mild splenomegaly. 3. Small focal area of low-attenuation in the spleen. While this could be related to phase of contrast, however a splenic hematoma and/or abscess cannot be excluded. Follow-up exam may be obtained contrast-enhanced CT of the abdomen 4. Generalized anasarca with a more focal area of stranding in the right flank. Correlate with the history of trauma. PQRS Compliance Statement: One or more of the following individualized dose reduction techniques were utilized for this examination: 1. Automated exposure control 2. Adjustment of the mA and/or kV according to patient size 3. Use of iterative reconstruction technique
--- NOTE | 2017-01-15 16:31 | PDOC ---
SUBJECTIVE ROS ESRD More awake now and somewhat conversational; appetite improving CVS: no Orthopnea, no CP RESP: no SOB, no KWONG GI: no Nausea, no Vomiting : no Dysuria, no Urgency OBJECTIVE Vital Signs Vital Signs Date Time Temp Pulse Resp B/P (MAP) Pulse Ox O2 Delivery O2 Flow Rate FiO2 01/15/17 16:00 Nasal Cannula 2.0 01/15/17 16:00 98.0 96 16 95/45 (62) 97 98.0 PHYSICAL EXAM Physical Exam GEN: Awake, Oriented x 1, In no distress; Ill appearing EYES: Vision Unchanged, Conjunctiva Normal EN: No EN Drainage, Mucous Membranes moist NECK: no JVD, min JVP, Supple, no Thyromegaly CVS: S1S2, ? Murmur, No Gallop, No Rub,no Edema RESP: no Rales, no Rhonchi,no Acc. Muscle Use GI: BS + ve, NO Bruit, Non Tender, Non Distended : no CVA tenderness, no Suprapubic Tenderness DIAGNOSIS/ASSESSMENT Assessment & Plan ESRD: Current fluid and E-lyte status does not necessitate emergent need for dialysis. Will re-evaluate for dialysis in the am and continue on TTSAt schedule. Anorexia - doubt that this is a Uremic symptom since it started Suddenly on . ANEMIA; Aranesp as ordered, Transfuse with next HD as needed HypoTN: (Sepsis) Current meds reviewed. See orders for changes. Remains on Pressors for now BONE & MINERAL: follow phos and alter binder regimen as needed AMS now most likely due to Sev Purulent Cystitis - ? with SEpsis Nutirtion - pt trying to eat on her own - watch intake ? DIC ensuing - MS is better - ABx per Dr Howell Discussed Plan of Care with family at bedside COMMENT/RELEVANT DATA Meds Current Medications Medications (Trade) Dose Ordered Sig/Colleen Start Time Stop Time Status Last Admin Dose Admin Acetaminophen (Tylenol) 500 mg 1X PRN PRN 01/11/17 09:00 01/12/17 08:59 DC Albumin Human 250 ml @ 62.5 mls/hr 1X ONCE 01/11/17 14:15 01/11/17 18:14 DC 01/11/17 14:15 62.5 MLS/HR Allopurinol (Zyloprim) 100 mg DAILY 01/10/17 14:30 01/13/17 08:49 100 MG Aspirin (Children'S Aspirin) 324 mg 1X ONCE 01/09/17 07:45 01/09/17 07:46 DC 01/09/17 08:15 324 MG Aspirin (Ecotrin) 81 mg DAILY 01/10/17 14:30 01/15/17 07:55 81 MG Atenolol (Tenormin) 50 mg DAILY 01/10/17 14:30 01/12/17 14:50 DC 01/12/17 09:09 50 MG Calcium Acetate (Phoslo) 2,001 mg TIDWMEALS 01/10/17 17:00 01/13/17 17:23 2,001 MG Darbepoetin Jerome (Aranesp) 60 mcg WEEKLYHS 01/09/17 21:00 01/09/17 21:31 60 MCG Digoxin (Lanoxin) 250 mcg 1X ONCE 01/11/17 18:45 01/11/17 18:46 DC 01/11/17 19:02 250 MCG Diltiazem HCl (Cardizem) 10 mg 1X ONCE 01/09/17 07:30 01/09/17 07:31 DC 01/09/17 07:39 10 MG Diltiazem HCl 125 mg/Dextrose 125 ml @ 0 mls/hr CONT PRN 01/09/17 07:30 01/09/17 07:40 5 MLS/HR Diphenhydramine HCl (Benadryl) 25 mg 1X PRN PRN 01/11/17 09:00 01/12/17 08:59 DC 01/11/17 13:30 25 MG Enoxaparin Sodium (Lovenox 100mg Syringe) 90 mg Q24H 01/11/17 20:00 01/15/17 11:08 DC 01/14/17 21:09 90 MG Fentanyl Citrate (Fentanyl 2ml Vial) 50 mcg 1X ONCE 01/09/17 20:00 01/09/17 20:01 DC 01/09/17 19:57 50 MCG Fentanyl Citrate (Fentanyl 5ml Vial) 50 mcg 1X ONCE 01/11/17 13:45 01/11/17 13:46 DC 01/11/17 13:51 50 MCG Fish Oil (Fish Oil) 1,000 mg DAILY 01/11/17 09:00 01/15/17 07:54 1,000 MG Gabapentin (Neurontin) 100 mg BID 01/10/17 14:30 01/15/17 07:54 100 MG Heparin Sodium (Porcine) (Heparin Sodium) 3,000 unit 1X ONCE 01/15/17 21:00 01/15/17 21:01 Heparin Sodium/ Dextrose 500 ml @ 0 mls/hr CONT PRN 01/15/17 21:00 Heparin Sodium/ Sodium Chloride 60 unit 1X ONCE 01/15/17 08:30 01/15/17 08:32 DC 01/15/17 09:01 60 UNIT Info (Anti-Coagulation Monitoring By Pharmacy) 1 each PRN DAILY PRN 01/13/17 09:00 01/14/17 13:16 1 EACH Info (Do NOT chart on this entry -- for MONITORING) 1 each PRN DAILY PRN 01/15/17 12:15 01/17/17 12:14 Info (PHARMACY MONITORING -- do not chart) 1 each PRN DAILY PRN 01/14/17 09:15 UNV Iohexol (Omnipaque 300 Mg/ml) 75 ml 1X ONCE 01/15/17 12:15 01/15/17 12:16 DC 01/15/17 12:15 75 ML Iohexol (Omnipaque 350 Mg/ml) 81 ml 1X ONCE 01/11/17 13:45 01/11/17 13:46 DC 01/11/17 13:51 81 ML Lidocaine HCl 12 ml 1X ONCE 01/11/17 13:45 01/11/17 13:46 DC 01/11/17 13:50 12 ML Lidocaine HCl (Xylocaine-Mpf 1% Vial) 2 ml 1X ONCE 01/11/17 09:00 01/11/17 09:02 DC 01/11/17 10:01 2 ML Lidocaine/Sodium Bicarbonate (Buffered Lidocaine 1%) 3 ml 1X ONCE 01/15/17 08:30 01/15/17 08:32 DC 01/15/17 09:00 3 ML Magnesium Sulfate/ Dextrose 50 ml @ 25 mls/hr PRN DAILY PRN 01/13/17 10:45 Meloxicam (Mobic) 7.5 mg DAILY 01/10/17 14:30 01/15/17 07:54 7.5 MG Metronidazole 100 ml @ 100 mls/hr Q8H 01/15/17 08:00 01/15/17 16:12 100 MLS/HR Micafungin Sodium 100 mg/Dextrose 100 ml @ 100 mls/hr Q24H 01/14/17 13:00 01/15/17 14:32 100 MLS/HR Midazolam HCl (Versed) 1 mg 1X ONCE 01/11/17 13:45 01/11/17 13:46 DC 01/11/17 13:51 1 MG Morphine Sulfate 3 mg 1X ONCE 01/11/17 12:15 01/11/17 12:16 DC 01/11/17 12:15 3 MG Nitroglycerin (Nitrostat) 0.4 mg PRN Q5MIN PRN 01/11/17 12:15 01/11/17 12:35 0.4 MG Norepinephrine Bitartrate 250 ml @ 0 mls/hr CONT PRN 01/12/17 15:45 01/15/17 01:34 13.125 MLS/HR Ondansetron HCl (Zofran) 8 mg PRN Q6HRS PRN 01/11/17 18:45 01/15/17 04:04 8 MG Oxycodone/ Acetaminophen (Percocet 5/325) 1 tab PRN Q4HRS PRN 01/09/17 18:00 01/11/17 08:31 1 TAB Pantoprazole Sodium (Protonix) 40 mg DAILYAC 01/10/17 14:30 01/15/17 07:54 40 MG Piperacillin Sod/ Tazobactam Sod 2.25 gm/Sodium Chloride 50 ml @ 100 mls/hr Q8HRS 01/14/17 12:30 01/15/17 14:32 100 MLS/HR Propafenone HCl (Rythmol) 75 mg BID 01/12/17 21:00 01/15/17 07:54 75 MG Sodium Chloride 1,000 ml @ 1,000 mls/hr Q1H PRN 01/14/17 09:11 01/14/17 15:10 DC Vancomycin HCl (Vanco Per Pharmacy) 1 each PRN DAILY PRN 01/15/17 07:15 01/15/17 14:29 1 EACH Vancomycin HCl 2 gm/Sodium Chloride 500 ml @ 250 mls/hr 1X ONCE 01/15/17 08:00 01/15/17 09:59 DC 01/15/17 07:55 250 MLS/HR Vitamin B Complex/ Vitamin C (Tsering-Ray) 1 tab HS 01/10/17 21:00 01/13/17 22:24 1 TAB Lab Laboratory Tests Test 01/14/17 19:30 01/15/17 05:35 01/15/17 11:04 Creatine Kinase 29 U/L (26-192) Vitamin B12 Level 1601 pg/mL (247-911) White Blood Count 23.1 x10^3/uL (4.0-11.0) Red Blood Count 3.13 x10^6/uL (3.50-5.40) Hemoglobin 10.7 g/dL (12.0-15.5) Hematocrit 34.2 % (36.0-47.0) Mean Corpuscular Volume 110 fL (79-100) Mean Corpuscular Hemoglobin 34 pg (25-35) Mean Corpuscular Hemoglobin Concent 31 g/dL (31-37) Red Cell Distribution Width 14.4 % (11.5-14.5) Platelet Count 66 x10^3/uL (140-400) Neutrophils (%) (Auto) 85 % (31-73) Lymphocytes (%) (Auto) 7 % (24-48) Monocytes (%) (Auto) 7 % (0-9) Eosinophils (%) (Auto) 0 % (0-3) Basophils (%) (Auto) 1 % (0-3) Neutrophils # (Auto) 19.6 x10^3uL (1.8-7.7) Lymphocytes # (Auto) 1.7 x10^3/uL (1.0-4.8) Monocytes # (Auto) 1.7 x10^3/uL (0.0-1.1) Eosinophils # (Auto) 0.1 x10^3/uL (0.0-0.7) Basophils # (Auto) 0.1 x10^3/uL (0.0-0.2) Erythrocyte Sedimentation Rate 23 (0-25) Sodium Level 135 mmol/L (136-145) Potassium Level 5.3 mmol/L (3.5-5.1) Chloride Level 95 mmol/L (98-107) Carbon Dioxide Level 24 mmol/L (21-32) Anion Gap 16 (6-14) Blood Urea Nitrogen 28 mg/dL (7-20) Creatinine 4.1 mg/dL (0.6-1.0) Estimated GFR (Cockcroft-Gault) 10.7 Glucose Level 119 mg/dL (70-99) Calcium Level 8.3 mg/dL (8.5-10.1) Phosphorus Level 4.7 mg/dL (2.6-4.7) Magnesium Level 2.3 mg/dL (1.8-2.4) Albumin 3.0 g/dL (3.4-5.0) Lactic Acid Level 2.0 mmol/L (0.4-2.0) FLORESITA ACOSTA MD Jan 15, 2017 16:31
--- NOTE | 2017-01-15 18:20 | PDOC ---
PROGRESS NOTES Assessment Assessment Metabolic encephalopathy. Confusion. Generalized weakness. New onset Afib. CHF Renal failure on dialysis. DM HTN Anemia. Gout Obesity RECOMMENDATIONS/PLAN: Treat medical and cardiac disease. OT/PT Discussed with her at [facility] in ICU on 01/15/17. HISTORY OF THE PRESENT ILLNESS: 71-y-old female patient with above medical and cardiac diseases was noted MS changes, confusional episodes and generalized weakness, so Neurology was requested for consultation. no focalized sensory of motor deficits noted. Her condition is improving on 01/15/17. Past Medical History Cardiovascular: HTN, Other Heme/Onc: Anemia NOS Rheumatologic: Gout Renal/: Chronic renal failure Endocrine: Diabetes, Hyperparathyroidism, Other Past Surgical History Pacemaker, Cholecystectomy, Hysterectomy, Other Family History No Significant Social History ALCOHOL: none Drugs: None ALLERGY: Reviewed. MEDICATIONS: Refer to MAR REVIEW OF SYSTEMS: Constitutional: No malnutrition, weight loss, cachexia. Head: No recent traumatic brain or head injury. Skin: No edema, or rash. Ear: No infection. Eyes: No vision loss or color blindness. Nose: No bleeding or purulent discharges. Hearing: Hearing decrease. Neck: No injury. Breast: No history of cancer, masses,or discharges. Cardiac: New onset AFib, Pacemaker Placement, HTN. Pulmonary: No COPD. GI: No GI ulcer, GI bleeding. Urinary/genital: UTI. Endocrinologic: Diabetes Mellitus, obesity. Skeletomuscular: Generalized weakness. Neurological: see HP. Psychiatric: Denies drug use/abuse. Otherwise, not [id number] review of systems. PHYSICAL EXAMINATION: General appearance is in subacute distress. HEENT: Normocephalic and nontraumatic. Eyes, nose, ears, and throat are unremarkable. Neck is supple. No lymphadenopathy. No crepitus. Cardiovascular: S1, S2, irregular rate and rhythm. Pulmonary: Clear to auscultation bilaterally. Abdomen: Bowel sounds are positive. Extremities: No rash, lesions, or edema. No restriction of range of motion NEUROLOGICAL EXAMINATION: Awake. Not oriented to time, but knows place and person. PERRL. EOMI, but slow. CN: no acute focal findings. Muscle tone: within normal. Muscle strength: 4 DTR: 2- Plantar reflex: Flexor response bilaterally Gait: not examined in bed. Sensory exam: no abnormal findings. Not able to access cerebellar signs this time. F-T-N test not performed due to not follow commands. Objective Objective Vital Signs Date Time Temp Pulse Resp B/P (MAP) Pulse Ox O2 Delivery O2 Flow Rate FiO2 01/15/17 17:00 99 12 97/58 (71) 98 Nasal Cannula 2.0 01/15/17 16:00 98.0 98.0 Intake and Output 01/16/17 07:00 Intake Total 772 ml Balance 772 ml Intake Oral 300 ml IV Total 472 ml Vitals Signs Vitals VS - Last 72 Hours, by Label Date Time Temp Pulse Resp B/P (MAP) Pulse Ox O2 Delivery O2 Flow Rate FiO2 01/15/17 17:00 99 12 97/58 (71) 98 Nasal Cannula 2.0 01/15/17 16:00 Nasal Cannula 2.0 01/15/17 16:00 98.0 96 16 95/45 (62) 97 Nasal Cannula 2.0 98.0 01/15/17 15:15 99 19 87/49 (62) 95 Nasal Cannula 2.0 01/15/17 15:00 100 15 99/34 (55) 95 Nasal Cannula 2.0 01/15/17 14:30 102 12 111/39 (63) 95 Nasal Cannula 2.0 01/15/17 14:00 100 18 105/81 (89) 96 Nasal Cannula 2.0 01/15/17 13:30 96 16 120/64 (82) 95 Nasal Cannula 2.0 01/15/17 13:00 98 18 121/70 (87) 97 Nasal Cannula 2.0 01/15/17 12:00 98.2 96 20 114/51 (72) 97 Nasal Cannula 2.0 98.2 01/15/17 12:00 Nasal Cannula 2.0 01/15/17 11:00 104 19 95/52 (66) 96 Nasal Cannula 2.0 01/15/17 10:00 112 16 95/47 (63) 95 Nasal Cannula 2.0 01/15/17 09:00 92 20 96/58 (71) 99 Nasal Cannula 2.0 01/15/17 08:00 Nasal Cannula 2.0 01/15/17 08:00 97.9 105 20 116/81 (93) 97 Nasal Cannula 2.0 97.9 01/15/17 07:54 97 119/41 01/15/17 07:00 88 28 119/41 (67) 96 Nasal Cannula 2.0 01/15/17 06:00 91 18 95/65 (75) 94 Nasal Cannula 2.0 01/15/17 05:00 91 24 118/41 (66) 93 Nasal Cannula 2.0 01/15/17 04:00 Nasal Cannula 2.0 01/15/17 04:00 97.7 102 16 108/47 (67) 95 Nasal Cannula 2.0 97.7 01/15/17 03:00 102 17 113/41 (65) 96 Nasal Cannula 2.0 01/15/17 02:00 81 13 102/42 (62) 96 Nasal Cannula 2.0 01/15/17 01:00 81 23 114/44 (67) 95 Nasal Cannula 2.0 01/15/17 00:00 97.4 106 12 114/54 (74) 96 Nasal Cannula 2.0 97.4 01/15/17 00:00 Nasal Cannula 2.0 01/14/17 23:00 96 13 117/46 (69) 97 Nasal Cannula 2.0 01/14/17 22:00 110 17 123/38 (66) 97 Nasal Cannula 2.0 01/14/17 21:15 100 14 114/45 (68) 95 Nasal Cannula 2.0 01/14/17 21:00 100 12 103/44 (63) 99 Nasal Cannula 2.0 01/14/17 20:33 96 12 113/47 (69) 97 Nasal Cannula 2.0 01/14/17 20:15 Nasal Cannula 2.0 01/14/17 20:15 97.4 102 13 111/58 (75) 96 Nasal Cannula 2.0 97.4 01/14/17 18:00 102 19 114/45 (68) 98 Nasal Cannula 2.0 01/14/17 17:00 97 22 119/37 (64) 96 Nasal Cannula 2.0 01/14/17 16:00 Nasal Cannula 2.0 01/14/17 16:00 98.2 108 18 89/42 (58) 98 Nasal Cannula 2.0 98.2 01/14/17 15:00 105 20 87/39 (55) 97 Nasal Cannula 2.0 01/14/17 14:00 116 17 109/45 (66) 99 Nasal Cannula 2.0 01/14/17 13:00 118 17 84/58 (67) 98 Nasal Cannula 2.0 01/14/17 12:00 Nasal Cannula 2.0 01/14/17 12:00 98.0 106 15 75/37 (50) 100 Nasal Cannula 2.0 98.0 01/14/17 11:00 110 16 94/46 (62) 100 Nasal Cannula 2.0 01/14/17 10:00 102 18 93/36 (55) 96 Nasal Cannula 2.0 01/14/17 09:00 92 14 81/41 (54) 97 Nasal Cannula 2.0 01/14/17 08:15 81 16 91/40 (57) 95 Nasal Cannula 2.0 01/14/17 08:00 Nasal Cannula 2.0 01/14/17 08:00 98.1 82 17 122/52 (75) 94 Nasal Cannula 2.0 98.1 01/14/17 07:00 86 10 98/40 (59) 96 Nasal Cannula 2.0 Laboratory Laboratory Laboratory Tests Test 01/14/17 19:30 01/15/17 05:35 01/15/17 11:04 Creatine Kinase 29 U/L (26-192) Vitamin B12 Level 1601 pg/mL (247-911) White Blood Count 23.1 x10^3/uL (4.0-11.0) Red Blood Count 3.13 x10^6/uL (3.50-5.40) Hemoglobin 10.7 g/dL (12.0-15.5) Hematocrit 34.2 % (36.0-47.0) Mean Corpuscular Volume 110 fL (79-100) Mean Corpuscular Hemoglobin 34 pg (25-35) Mean Corpuscular Hemoglobin Concent 31 g/dL (31-37) Red Cell Distribution Width 14.4 % (11.5-14.5) Platelet Count 66 x10^3/uL (140-400) Neutrophils (%) (Auto) 85 % (31-73) Lymphocytes (%) (Auto) 7 % (24-48) Monocytes (%) (Auto) 7 % (0-9) Eosinophils (%) (Auto) 0 % (0-3) Basophils (%) (Auto) 1 % (0-3) Neutrophils # (Auto) 19.6 x10^3uL (1.8-7.7) Lymphocytes # (Auto) 1.7 x10^3/uL (1.0-4.8) Monocytes # (Auto) 1.7 x10^3/uL (0.0-1.1) Eosinophils # (Auto) 0.1 x10^3/uL (0.0-0.7) Basophils # (Auto) 0.1 x10^3/uL (0.0-0.2) Erythrocyte Sedimentation Rate 23 (0-25) Sodium Level 135 mmol/L (136-145) Potassium Level 5.3 mmol/L (3.5-5.1) Chloride Level 95 mmol/L (98-107) Carbon Dioxide Level 24 mmol/L (21-32) Anion Gap 16 (6-14) Blood Urea Nitrogen 28 mg/dL (7-20) Creatinine 4.1 mg/dL (0.6-1.0) Estimated GFR (Cockcroft-Gault) 10.7 Glucose Level 119 mg/dL (70-99) Calcium Level 8.3 mg/dL (8.5-10.1) Phosphorus Level 4.7 mg/dL (2.6-4.7) Magnesium Level 2.3 mg/dL (1.8-2.4) Albumin 3.0 g/dL (3.4-5.0) Lactic Acid Level 2.0 mmol/L (0.4-2.0) Microbiology 01/14/17 Blood Culture - Final, Complete Medication Medications Current Medications Heparin Sodium (Porcine) (Heparin Sodium) 3,000 unit 1X ONCE IV ; Start at 21:00; Stop 01/15/17 at 21:01 Heparin Sodium/ Dextrose 500 ml @ 0 mls/hr CONT PRN IV SEE I/O RECORD; Start at 21:00 Heparin Sodium/ Sodium Chloride 60 unit 1X ONCE IV Last administered on t 09:01; Start 01/15/17 at 08:30; Stop 01/15/17 at 08:32; Status DC Info (Do NOT chart on this entry -- for MONITORING) 1 each PRN DAILY PRN MC SEE COMMENTS; Start 01/15/17 at 12:15; Stop 01/17/17 at 12:14 Iohexol (Omnipaque 300 Mg/ml) 75 ml 1X ONCE IV ; Start 01/15/17 at 08:00; Stop 01/15/17 at 08:01; Status DC Iohexol (Omnipaque 300 Mg/ml) 75 ml 1X ONCE IV Last administered on 01/15/17 12:15; Start 01/15/17 at 12:15; Stop 01/15/17 at 12:16; Status DC Lidocaine/Sodium Bicarbonate (Buffered Lidocaine 1%) 3 ml 1X ONCE IJ Last administered on 01/15/17 09:00; Start 01/15/17 at 08:30; Stop 01/15/17 at 08:32 ; Status DC Metronidazole 100 ml @ 100 mls/hr Q8H IV Last administered on 01/15/17 16:12 ; Start 01/15/17 at 08:00 Vancomycin HCl (Vanco Per Pharmacy) 1 each PRN DAILY PRN MC SEE COMMENTS Last administered on 01/15/17 14:29; Start 01/15/17 at 07:15 Vancomycin HCl 2 gm/Sodium Chloride 500 ml @ 250 mls/hr 1X ONCE IV Last administered on 01/15/17 07:55; Start 01/15/17 at 08:00; Stop 01/15/17 at 09:59 ; Status DC Comment Review of Relevant I have reviewed the following items michelle (where applicable) has been applied. TUNG COX MD Jan 15, 2017 18:20
[2017-01-15] MEDS: HEPARIN 25,000UTS/500ML PREMIX 500 ML IV PRN (20:19)
[2017-01-15] MEDS ORDERED: HEPARIN for IV BOLUS 10,000 UNIT/10 ML VIAL. IV ONE (21:00)
[2017-01-15] MEDS: FOLIC/VIT B COMP W-C (RENAL) TABLET. PO SCH (21:00)
[2017-01-16] VITALS (28 sets, daily range): BP systolic 73–134; BP diastolic 21–98
[2017-01-16 05:20] LABS: BASO % 0 % (0-3); EOS % 1 % (0-3); HEMATOCRIT 30.7 % (36.0-47.0); HEMOGLOBIN 10.1 g/dL (12.0-15.5); LYMPH % 10 % (24-48); MEAN CORPUSCULAR HEMOGLOBIN 35 pg (25-35); MEAN CORPUSCULAR HGB CONC 33 g/dL (31-37); MEAN CORPUSCULAR VOLUME 106 fL (79-100); MONO % 7 % (0-9); NEUT % 82 % (31-73); PLATELET COUNT 81 x10^3/uL (140-400); RED BLOOD COUNT 2.91 x10^6/uL (3.50-5.40); RED CELL DISTRIBUTION WIDTH 14.5 % (11.5-14.5); WHITE BLOOD COUNT 20.7 x10^3/uL (4.0-11.0)
[2017-01-16] MEDS: PIPERACILLIN/TAZOBACTAM 2.25 GM in IV NORMAL SALINE 50ML 50 ML IV SCH ×3 (05:24→21:10)
[2017-01-16 06:22] LABS: ALBUMIN 2.6 g/dL (3.4-5.0); CREATININE 4.6 mg/dL (0.6-1.0); GFR 9.4; MAGNESIUM 1.9 mg/dL (1.8-2.4); PHOSPHORUS 4.9 mg/dL (2.6-4.7)
[2017-01-16 06:33] LABS: POTASSIUM 4.6 mmol/L (3.5-5.1)
[2017-01-16] MEDS: VANCOMYCIN PER PHARMACY MC PRN (07:30)
[2017-01-16] MEDS ORDERED: IV NORMAL SALINE 1000ML BAG 1,000 ML IV PRN (07:32)
[2017-01-16] MEDS ORDERED: ALBUMIN HUMAN 25% 200 ML IV PRN (07:45)
[2017-01-16] MEDS ORDERED: DIALYSIS PATIENT. MC PRN ×4 (07:45)
[2017-01-16] MEDS ORDERED: GENTAMICIN PER PHARMACY. MC ONE (08:00)
--- NOTE | 2017-01-16 08:02 | PDOC ---
Infectious Disease Note Subjective Subjective Lethargic today but states ok ROS ROS Unobtainable Vital Sign Vital Signs Vital Signs Date Time Temp Pulse Resp B/P (MAP) Pulse Ox O2 Delivery O2 Flow Rate FiO2 01/16/17 06:30 92/31 (51) 01/16/17 05:30 90 98 Nasal Cannula 2.0 01/15/17 19:19 97.8 24 97.8 Physical Exam PHYSICAL EXAM GENERAL: Alert but confused HEENT: PERRL, OC/OP- dry NECK: Supple, no JVD, no LN LUNGS: Clear HEART: S1S2, no gallop, no murmur ABD: Soft, NT, ND, no guard or rebound EXT: No edema, no cyanosis HEALTH INFORMATION PROVIDER: Alert, cooperative in some respects ie opened her mouth SKIN: No rash IV: LUE fistula is clean. [facility] - clean Labs Lab Laboratory Tests Test 01/15/17 11:04 01/16/17 04:45 01/16/17 05:50 Lactic Acid Level 2.0 mmol/L (0.4-2.0) White Blood Count 20.7 x10^3/uL (4.0-11.0) Red Blood Count 2.91 x10^6/uL (3.50-5.40) Hemoglobin 10.1 g/dL (12.0-15.5) Hematocrit 30.7 % (36.0-47.0) Mean Corpuscular Volume 106 fL (79-100) Mean Corpuscular Hemoglobin 35 pg (25-35) Mean Corpuscular Hemoglobin Concent 33 g/dL (31-37) Red Cell Distribution Width 14.5 % (11.5-14.5) Platelet Count 81 x10^3/uL (140-400) Neutrophils (%) (Auto) 82 % (31-73) Lymphocytes (%) (Auto) 10 % (24-48) Monocytes (%) (Auto) 7 % (0-9) Eosinophils (%) (Auto) 1 % (0-3) Basophils (%) (Auto) 0 % (0-3) Neutrophils # (Auto) 17.1 x10^3uL (1.8-7.7) Lymphocytes # (Auto) 2.0 x10^3/uL (1.0-4.8) Monocytes # (Auto) 1.5 x10^3/uL (0.0-1.1) Eosinophils # (Auto) 0.2 x10^3/uL (0.0-0.7) Basophils # (Auto) 0.0 x10^3/uL (0.0-0.2) Sodium Level 137 mmol/L (136-145) Potassium Level 4.6 mmol/L (3.5-5.1) Chloride Level 99 mmol/L (98-107) Carbon Dioxide Level 26 mmol/L (21-32) Anion Gap 12 (6-14) Blood Urea Nitrogen 36 mg/dL (7-20) Creatinine 4.6 mg/dL (0.6-1.0) Estimated GFR (Cockcroft-Gault) 9.4 Glucose Level 139 mg/dL (70-99) Calcium Level 7.0 mg/dL (8.5-10.1) Phosphorus Level 4.9 mg/dL (2.6-4.7) Magnesium Level 1.9 mg/dL (1.8-2.4) Albumin 2.6 g/dL (3.4-5.0) Objective Assessment ? Enterococcus sepsis - was off levophed but now back on this am. D/w micro this am. TTE 01/09 no gross findings Abnormal splenic lesion CT reviewed with Nursing (Judie) 01/15 Leukocytosis -improved Encephalopathy - had improved yesterday as she was eating some but this am some lethargy again Generalized aches - no history of PMR or fibromyalgia per . no joint inflammation Afib RVR + MRSA screen Recent UTI H/o C-diff Plan Plan of Care F/u Abd U/S - may need surgical eval depending on finding Repeat Blood cults Dose Gent times one D/c Flagyl F/u blood cults from 01/14 Vanc/Zosyn/Micafungin F/u labs in am Critically ill D/w D/w NICK Maldonado MD Jan 16, 2017 08:02
--- NOTE | 2017-01-16 08:35 | PDOC ---
Dialysis Progress Note Dialysis Note Dialysis Note Seen on Hemodialysis, tolerating treatment Okay since she is now on Levophed Vitals on Hemodialysis: 116/53 107 afeb General Appearance: Ill appearing Awake: but somewhat drowsy Alert Oriented x 0 Neck: No JVD or JVP Chest: CTA Silviano Heart: S1 S2 Abdomen - Soft NTND Extremities - No Edema ESRD: Dialysis as below F 180 NR 3.5 Hrs 3 K 2.5 Ca 140 Na 35 HC03 Qb 350 + Qd 500+ Heparin 0 Units Uf 1-2 Kgs or to dry weight as tolerated May give 25-50 gms of 25% Albumin if needed to maintain Hemodynamic stability Treatment plan reviewed and discussed with student ministry pastor Will reval on HD Vitals Vital Signs Vital Signs Date Time Temp Pulse Resp B/P (MAP) Pulse Ox O2 Delivery O2 Flow Rate FiO2 01/16/17 06:30 92/31 (51) 01/16/17 05:30 90 98 Nasal Cannula 2.0 01/15/17 19:19 97.8 24 97.8 Labs Last Labs Laboratory Tests Test 01/14/17 08:40 01/14/17 10:30 01/14/17 19:30 01/15/17 05:35 White Blood Count 19.9 x10^3/uL (4.0-11.0) 23.1 x10^3/uL (4.0-11.0) Red Blood Count 3.16 x10^6/uL (3.50-5.40) 3.13 x10^6/uL (3.50-5.40) Hemoglobin 11.0 g/dL (12.0-15.5) 10.7 g/dL (12.0-15.5) Hematocrit 33.7 % (36.0-47.0) 34.2 % (36.0-47.0) Mean Corpuscular Volume 107 fL (79-100) 110 fL (79-100) Mean Corpuscular Hemoglobin 35 pg (25-35) 34 pg (25-35) Mean Corpuscular Hemoglobin Concent 33 g/dL (31-37) 31 g/dL (31-37) Red Cell Distribution Width 14.4 % (11.5-14.5) 14.4 % (11.5-14.5) Platelet Count 104 x10^3/uL (140-400) 66 x10^3/uL (140-400) Neutrophils (%) (Auto) 79 % (31-73) 85 % (31-73) Lymphocytes (%) (Auto) 10 % (24-48) 7 % (24-48) Monocytes (%) (Auto) 8 % (0-9) 7 % (0-9) Eosinophils (%) (Auto) 2 % (0-3) 0 % (0-3) Basophils (%) (Auto) 1 % (0-3) 1 % (0-3) Neutrophils # (Auto) 15.7 x10^3uL (1.8-7.7) 19.6 x10^3uL (1.8-7.7) Lymphocytes # (Auto) 1.9 x10^3/uL (1.0-4.8) 1.7 x10^3/uL (1.0-4.8) Monocytes # (Auto) 1.6 x10^3/uL (0.0-1.1) 1.7 x10^3/uL (0.0-1.1) Eosinophils # (Auto) 0.4 x10^3/uL (0.0-0.7) 0.1 x10^3/uL (0.0-0.7) Basophils # (Auto) 0.2 x10^3/uL (0.0-0.2) 0.1 x10^3/uL (0.0-0.2) Sodium Level 131 mmol/L (136-145) 135 mmol/L (136-145) Potassium Level 5.4 mmol/L (3.5-5.1) 5.3 mmol/L (3.5-5.1) Chloride Level 100 mmol/L (98-107) 95 mmol/L (98-107) Carbon Dioxide Level 20 mmol/L (21-32) 24 mmol/L (21-32) Anion Gap 11 (6-14) 16 (6-14) Blood Urea Nitrogen 49 mg/dL (7-20) 28 mg/dL (7-20) Creatinine 5.8 mg/dL (0.6-1.0) 4.1 mg/dL (0.6-1.0) Estimated GFR (Cockcroft-Gault) 7.2 10.7 Glucose Level 118 mg/dL (70-99) 119 mg/dL (70-99) Calcium Level 8.2 mg/dL (8.5-10.1) 8.3 mg/dL (8.5-10.1) Phosphorus Level 4.8 mg/dL (2.6-4.7) 4.7 mg/dL (2.6-4.7) Magnesium Level 2.3 mg/dL (1.8-2.4) 2.3 mg/dL (1.8-2.4) Albumin 2.9 g/dL (3.4-5.0) 3.0 g/dL (3.4-5.0) Procalcitonin 1.92 ng/mL (0.00-0.10) Cortisol AM Sample 24.8 ug/dL (6.2-19.4) Ammonia 31 mcmol/L (11-34) Creatine Kinase 29 U/L (26-192) Vitamin B12 Level 1601 pg/mL (247-911) Erythrocyte Sedimentation Rate 23 (0-25) Test 01/15/17 11:04 01/16/17 04:45 01/16/17 05:50 Lactic Acid Level 2.0 mmol/L (0.4-2.0) White Blood Count 20.7 x10^3/uL (4.0-11.0) Red Blood Count 2.91 x10^6/uL (3.50-5.40) Hemoglobin 10.1 g/dL (12.0-15.5) Hematocrit 30.7 % (36.0-47.0) Mean Corpuscular Volume 106 fL (79-100) Mean Corpuscular Hemoglobin 35 pg (25-35) Mean Corpuscular Hemoglobin Concent 33 g/dL (31-37) Red Cell Distribution Width 14.5 % (11.5-14.5) Platelet Count 81 x10^3/uL (140-400) Neutrophils (%) (Auto) 82 % (31-73) Lymphocytes (%) (Auto) 10 % (24-48) Monocytes (%) (Auto) 7 % (0-9) Eosinophils (%) (Auto) 1 % (0-3) Basophils (%) (Auto) 0 % (0-3) Neutrophils # (Auto) 17.1 x10^3uL (1.8-7.7) Lymphocytes # (Auto) 2.0 x10^3/uL (1.0-4.8) Monocytes # (Auto) 1.5 x10^3/uL (0.0-1.1) Eosinophils # (Auto) 0.2 x10^3/uL (0.0-0.7) Basophils # (Auto) 0.0 x10^3/uL (0.0-0.2) Sodium Level 137 mmol/L (136-145) Potassium Level 4.6 mmol/L (3.5-5.1) Chloride Level 99 mmol/L (98-107) Carbon Dioxide Level 26 mmol/L (21-32) Anion Gap 12 (6-14) Blood Urea Nitrogen 36 mg/dL (7-20) Creatinine 4.6 mg/dL (0.6-1.0) Estimated GFR (Cockcroft-Gault) 9.4 Glucose Level 139 mg/dL (70-99) Calcium Level 7.0 mg/dL (8.5-10.1) Phosphorus Level 4.9 mg/dL (2.6-4.7) Magnesium Level 1.9 mg/dL (1.8-2.4) Albumin 2.6 g/dL (3.4-5.0) Laboratory Tests Test 01/15/17 11:04 01/16/17 04:45 01/16/17 05:50 Lactic Acid Level 2.0 mmol/L (0.4-2.0) White Blood Count 20.7 x10^3/uL (4.0-11.0) Red Blood Count 2.91 x10^6/uL (3.50-5.40) Hemoglobin 10.1 g/dL (12.0-15.5) Hematocrit 30.7 % (36.0-47.0) Mean Corpuscular Volume 106 fL (79-100) Mean Corpuscular Hemoglobin 35 pg (25-35) Mean Corpuscular Hemoglobin Concent 33 g/dL (31-37) Red Cell Distribution Width 14.5 % (11.5-14.5) Platelet Count 81 x10^3/uL (140-400) Neutrophils (%) (Auto) 82 % (31-73) Lymphocytes (%) (Auto) 10 % (24-48) Monocytes (%) (Auto) 7 % (0-9) Eosinophils (%) (Auto) 1 % (0-3) Basophils (%) (Auto) 0 % (0-3) Neutrophils # (Auto) 17.1 x10^3uL (1.8-7.7) Lymphocytes # (Auto) 2.0 x10^3/uL (1.0-4.8) Monocytes # (Auto) 1.5 x10^3/uL (0.0-1.1) Eosinophils # (Auto) 0.2 x10^3/uL (0.0-0.7) Basophils # (Auto) 0.0 x10^3/uL (0.0-0.2) Sodium Level 137 mmol/L (136-145) Potassium Level 4.6 mmol/L (3.5-5.1) Chloride Level 99 mmol/L (98-107) Carbon Dioxide Level 26 mmol/L (21-32) Anion Gap 12 (6-14) Blood Urea Nitrogen 36 mg/dL (7-20) Creatinine 4.6 mg/dL (0.6-1.0) Estimated GFR (Cockcroft-Gault) 9.4 Glucose Level 139 mg/dL (70-99) Calcium Level 7.0 mg/dL (8.5-10.1) Phosphorus Level 4.9 mg/dL (2.6-4.7) Magnesium Level 1.9 mg/dL (1.8-2.4) Albumin 2.6 g/dL (3.4-5.0) Assessment Assessment Problems Medical Problems: (1) Non-STEMI (non-ST elevated myocardial infarction) Status: Acute Problems: Plan Plan of Care Problems Medical Problems: (1) Non-STEMI (non-ST elevated myocardial infarction) Status: Acute FLORESITA ACOSTA MD Jan 16, 2017 08:34
[2017-01-16] MEDS ORDERED: GENTAMICIN SULFATE 180 MG in IV NORMAL SALINE 100ML 100 ML IV ONE (09:00)
[2017-01-16] MEDS: CALCIUM ACETATE 667 MG CAPSULE PO SCH ×3 (09:02→17:40)
[2017-01-16] MEDS: PANTOPRAZOLE 40 MG TABLET.DR. PO SCH (09:02)
[2017-01-16] MEDS: OMEGA-3 FATTY ACIDS/FISH OIL 1,000 MG CAPSULE. PO SCH (09:03)
[2017-01-16] MEDS: ALLOPURINOL 100 MG TABLET. PO SCH (09:03)
[2017-01-16] MEDS: ASPIRIN ENTERIC COATED 81 MG TABLET.DR. PO SCH (09:03)
[2017-01-16] MEDS: MELOXICAM 7.5 MG TABLET PO SCH (09:03)
[2017-01-16] MEDS: GABAPENTIN 100 MG CAPSULE. PO SCH ×2 (09:03→21:10)
[2017-01-16] MEDS: ANTI-COAG MONITOR BY PHARMACY. MC PRN ×2 (09:16→12:58)
--- NOTE | 2017-01-16 12:02 | RAD ---
Ultrasound of the abdomen 01/16/2017 Clinical history: Abnormal lesion seen involving the spleen. Sepsis. Technique: A real-time ultrasound examination of the abdomen was performed. Multiple images were obtained. Findings: Comparison is made to the patient's CT scan of the head dated 01/15/2017. The gallbladder is not visualized consistent with a cholecystectomy. The liver measures 13.4 cm in length which is within normal limits. The liver parenchyma has a decreased attenuation suggesting fatty infiltration. It has a slightly nodular contour suggestive of cirrhosis. No focal abnormality of the liver is seen. The common bile duct is enlarged measuring 1.1 cm in diameter. No intrahepatic biliary ductal dilatation is seen. The spleen is normal in size measuring 10.8 cm in length. Within the superior aspect of the spleen. A rounded hypoechoic mass is seen which measures 5.6 cm in greatest diameter. This corresponds to the abnormality seen on the patient's CT scan. Its ultrasound appearance is nonspecific. It was seen on a CT scan from 02/01/2014 and does not appear significantly changed in size. Its ultrasound and CT appearance is felt to be most consistent with a hemangioma. The visualized portions of the pancreas is within normal limits. Cortical scarring is seen involving both kidneys. The abdominal aorta and inferior vena cava are not well visualized due to overlying bowel gas. No significant free fluid is seen. There are small bilateral pleural effusions. Impression: 1. Post cholecystectomy. 2. The liver has a nodular contour suggestive of cirrhosis. 3. The common bile duct is dilated measuring 1.1 cm in diameter. No intrahepatic biliary ductal dilatation is seen. 4. 5.6 cm rounded mass is seen involving the superior aspect of the spleen which is felt to most likely represent a hemangioma as outlined above.
--- NOTE | 2017-01-16 12:07 | PDOC ---
PROGRESS NOTES Subjective Subjective Abdominal CT (01/15): Small focal area low attenuation in spleen. Splenic hematoma and/or abscess cannot be excluded. Abdominal US (01/16): 5.6 cm mass consistent with hemangioma Objective Objective Vital Signs Date Time Temp Pulse Resp B/P (MAP) Pulse Ox O2 Delivery O2 Flow Rate FiO2 01/16/17 11:00 110 12 95/52 (66) 100 Nasal Cannula 2.0 01/15/17 19:19 97.8 97.8 Physical Exam Physical Exam No significant changes to exam. Assessment Assessment Problems Medical Problems: (1) Non-STEMI (non-ST elevated myocardial infarction) Status: Acute Plan Plan of Care 1. Atrial fibrillation - Continue Rythmol for now, if not controlled will consider switching to Amiodarone 2. Hypotension - Possible Sepsis. Current medications reviewed. Continue IV fluids. Continue pressors for now. 3. Leukocytosis - Improving; WBC 12.0 on admission, 20.7 today - ID following, appreciate input - Currently on Vancomycin, Zosyn, Micafungin - Flagyl d/c on 01/16 - Blood cultures grew gram+ cocci - f/u labs in the AM - Repeat Blood cultures pending - 01/15: Possible splenic hematoma/abscess seen abdominal CT - Abdominal US (01/16): 5.6 cm mass consistent with hemangioma 4. Metabolic Encephalopathy 5. Possible breast mass - R breast US 01/14: Edema throughout right breast. No solid or cystic mass seen. 6. ESRD - Nephrology following, appreciate input. HD scheduled for today. 7. Anemia - Nephrology following, patient on Aranesp Echocardiogram shows a possible vegetation on the aortic valve will do a MARY JANE in AM to check this. Comment Review of Relevant I have reviewed the following items michelle (where applicable) has been applied. Labs Laboratory Tests Test 01/14/17 19:30 01/15/17 05:35 01/15/17 11:04 01/16/17 04:45 Creatine Kinase 29 U/L (26-192) Vitamin B12 Level 1601 pg/mL (247-911) White Blood Count 23.1 x10^3/uL (4.0-11.0) 20.7 x10^3/uL (4.0-11.0) Red Blood Count 3.13 x10^6/uL (3.50-5.40) 2.91 x10^6/uL (3.50-5.40) Hemoglobin 10.7 g/dL (12.0-15.5) 10.1 g/dL (12.0-15.5) Hematocrit 34.2 % (36.0-47.0) 30.7 % (36.0-47.0) Mean Corpuscular Volume 110 fL (79-100) 106 fL (79-100) Mean Corpuscular Hemoglobin 34 pg (25-35) 35 pg (25-35) Mean Corpuscular Hemoglobin Concent 31 g/dL (31-37) 33 g/dL (31-37) Red Cell Distribution Width 14.4 % (11.5-14.5) 14.5 % (11.5-14.5) Platelet Count 66 x10^3/uL (140-400) 81 x10^3/uL (140-400) Neutrophils (%) (Auto) 85 % (31-73) 82 % (31-73) Lymphocytes (%) (Auto) 7 % (24-48) 10 % (24-48) Monocytes (%) (Auto) 7 % (0-9) 7 % (0-9) Eosinophils (%) (Auto) 0 % (0-3) 1 % (0-3) Basophils (%) (Auto) 1 % (0-3) 0 % (0-3) Neutrophils # (Auto) 19.6 x10^3uL (1.8-7.7) 17.1 x10^3uL (1.8-7.7) Lymphocytes # (Auto) 1.7 x10^3/uL (1.0-4.8) 2.0 x10^3/uL (1.0-4.8) Monocytes # (Auto) 1.7 x10^3/uL (0.0-1.1) 1.5 x10^3/uL (0.0-1.1) Eosinophils # (Auto) 0.1 x10^3/uL (0.0-0.7) 0.2 x10^3/uL (0.0-0.7) Basophils # (Auto) 0.1 x10^3/uL (0.0-0.2) 0.0 x10^3/uL (0.0-0.2) Erythrocyte Sedimentation Rate 23 (0-25) Sodium Level 135 mmol/L (136-145) Potassium Level 5.3 mmol/L (3.5-5.1) Chloride Level 95 mmol/L (98-107) Carbon Dioxide Level 24 mmol/L (21-32) Anion Gap 16 (6-14) Blood Urea Nitrogen 28 mg/dL (7-20) Creatinine 4.1 mg/dL (0.6-1.0) Estimated GFR (Cockcroft-Gault) 10.7 Glucose Level 119 mg/dL (70-99) Calcium Level 8.3 mg/dL (8.5-10.1) Phosphorus Level 4.7 mg/dL (2.6-4.7) Magnesium Level 2.3 mg/dL (1.8-2.4) Albumin 3.0 g/dL (3.4-5.0) Lactic Acid Level 2.0 mmol/L (0.4-2.0) Test 01/16/17 05:50 01/16/17 08:50 Sodium Level 137 mmol/L (136-145) Potassium Level 4.6 mmol/L (3.5-5.1) Chloride Level 99 mmol/L (98-107) Carbon Dioxide Level 26 mmol/L (21-32) Anion Gap 12 (6-14) Blood Urea Nitrogen 36 mg/dL (7-20) Creatinine 4.6 mg/dL (0.6-1.0) Estimated GFR (Cockcroft-Gault) 9.4 Glucose Level 139 mg/dL (70-99) Calcium Level 7.0 mg/dL (8.5-10.1) Phosphorus Level 4.9 mg/dL (2.6-4.7) Magnesium Level 1.9 mg/dL (1.8-2.4) Albumin 2.6 g/dL (3.4-5.0) Heparin Anti-Xa Act, Unfractionated 0.47 IU/mL (0.30-0.70) Laboratory Tests Test 01/16/17 04:45 01/16/17 05:50 01/16/17 08:50 White Blood Count 20.7 x10^3/uL (4.0-11.0) Red Blood Count 2.91 x10^6/uL (3.50-5.40) Hemoglobin 10.1 g/dL (12.0-15.5) Hematocrit 30.7 % (36.0-47.0) Mean Corpuscular Volume 106 fL (79-100) Mean Corpuscular Hemoglobin 35 pg (25-35) Mean Corpuscular Hemoglobin Concent 33 g/dL (31-37) Red Cell Distribution Width 14.5 % (11.5-14.5) Platelet Count 81 x10^3/uL (140-400) Neutrophils (%) (Auto) 82 % (31-73) Lymphocytes (%) (Auto) 10 % (24-48) Monocytes (%) (Auto) 7 % (0-9) Eosinophils (%) (Auto) 1 % (0-3) Basophils (%) (Auto) 0 % (0-3) Neutrophils # (Auto) 17.1 x10^3uL (1.8-7.7) Lymphocytes # (Auto) 2.0 x10^3/uL (1.0-4.8) Monocytes # (Auto) 1.5 x10^3/uL (0.0-1.1) Eosinophils # (Auto) 0.2 x10^3/uL (0.0-0.7) Basophils # (Auto) 0.0 x10^3/uL (0.0-0.2) Sodium Level 137 mmol/L (136-145) Potassium Level 4.6 mmol/L (3.5-5.1) Chloride Level 99 mmol/L (98-107) Carbon Dioxide Level 26 mmol/L (21-32) Anion Gap 12 (6-14) Blood Urea Nitrogen 36 mg/dL (7-20) Creatinine 4.6 mg/dL (0.6-1.0) Estimated GFR (Cockcroft-Gault) 9.4 Glucose Level 139 mg/dL (70-99) Calcium Level 7.0 mg/dL (8.5-10.1) Phosphorus Level 4.9 mg/dL (2.6-4.7) Magnesium Level 1.9 mg/dL (1.8-2.4) Albumin 2.6 g/dL (3.4-5.0) Heparin Anti-Xa Act, Unfractionated 0.47 IU/mL (0.30-0.70) Microbiology 01/14/17 Blood Culture - Preliminary, Resulted 01/14/17 Blood Culture Result 1 (MONA) - Preliminary, Resulted Medications Current Medications Sodium Chloride 500 ml @ 500 mls/hr 1X ONCE IV Last administered on 06:45; Start 01/09/17 at 06:45; Stop 01/09/17 at 07:44; Status DC Diltiazem HCl (Cardizem) 10 mg 1X ONCE IVP Last administered on 01/09/17 07: 39; Start 01/09/17 at 07:30; Stop 01/09/17 at 07:31; Status DC Diltiazem HCl 125 mg/Dextrose 125 ml @ 0 mls/hr CONT PRN IV SEE I/O RECORD Last administered on 01/09/17 07:40; Start 01/09/17 at 07:30 Aspirin (Children'S Aspirin) 324 mg 1X ONCE PO Last administered on 01/09/17 08:15; Start 01/09/17 at 07:45; Stop 01/09/17 at 07:46; Status DC Darbepoetin Jerome (Aranesp) 60 mcg WEEKLYHS SQ Last administered on 01/09/17 21 :31; Start 01/09/17 at 21:00 Albumin Human 500 ml @ 125 mls/hr 1X ONCE IV Last administered on 01/09/17 13:02; Start 01/09/17 at 13:00; Stop 01/09/17 at 16:59; Status DC Albumin Human 500 ml @ 125 mls/hr 1X ONCE IV Last administered on 01/09/17 16:35; Start 01/09/17 at 16:00; Stop 01/09/17 at 19:59; Status DC Digoxin (Lanoxin) 500 mcg 1X ONCE IV Last administered on 01/09/17 13:03; Start 01/09/17 at 13:00; Stop 01/09/17 at 13:01; Status DC Sodium Chloride 1,000 ml @ 1,000 mls/hr Q1H PRN IV hypotension; Start 01/09/17 at 16:31; Stop 01/09/17 at 22:30; Status DC Sodium Chloride 1,000 ml @ 400 mls/hr Q2H30M PRN IV PATENCY; Start 01/09/17 at 16:31; Stop 01/10/17 at 04:30; Status DC Info (PHARMACY MONITORING -- do not chart) 1 each PRN DAILY PRN MC SEE COMMENTS ; Start 01/09/17 at 16:45; Status Cancel Fentanyl Citrate (Fentanyl 2ml Vial) 50 mcg PRN Q4HRS PRN IV PAIN Last administered on 01/09/17 17:52; Start 01/09/17 at 18:00 Oxycodone/ Acetaminophen (Percocet 5/325) 1 tab PRN Q4HRS PRN PO PAIN Last administered on 01/11/17 08:31; Start 01/09/17 at 18:00 Fentanyl Citrate (Fentanyl 2ml Vial) 50 mcg 1X ONCE IM ; Start 01/09/17 at 20: 00; Stop 01/09/17 at 20:01; Status Cancel Fentanyl Citrate (Fentanyl 2ml Vial) 50 mcg 1X ONCE IV Last administered on 19:57; Start 01/09/17 at 20:00; Stop 01/09/17 at 20:01; Status DC Allopurinol (Zyloprim) 100 mg DAILY PO Last administered on 01/16/17 09:03; Start 01/10/17 at 14:30 Aspirin (Ecotrin) 81 mg DAILY PO Last administered on 01/16/17 09:03; Start at 14:30 Atenolol (Tenormin) 50 mg DAILY PO Last administered on 01/12/17 09:09; Start 01/10/17 at 14:30; Stop 01/12/17 at 14:50; Status DC Calcium Acetate (Phoslo) 2,001 mg TIDWMEALS PO Last administered on 01/16/17 11:51; Start 01/10/17 at 17:00 Vitamin B Complex/ Vitamin C (Tsering-Ray) 1 tab HS PO Last administered on 22:24; Start 01/10/17 at 21:00 Gabapentin (Neurontin) 100 mg BID PO Last administered on 01/16/17 09:03; Start 01/10/17 at 14:30 Meloxicam (Mobic) 7.5 mg DAILY PO Last administered on 01/16/17 09:03; Start 01/10/17 at 14:30 Fish Oil (Fish Oil) 1,000 mg DAILY PO Last administered on 01/16/17 09:03; Start 01/11/17 at 09:00 Pantoprazole Sodium (Protonix) 40 mg DAILYAC PO Last administered on 01/16/17 09:02; Start 01/10/17 at 14:30 Digoxin (Lanoxin) 500 mcg 1X ONCE IV Last administered on 01/10/17 15:23; Start 01/10/17 at 15:30; Stop 01/10/17 at 15:31; Status DC Albumin Human 500 ml @ 125 mls/hr 1X ONCE IV Last administered on 01/10/17 15:22; Start 01/10/17 at 15:15; Stop 01/10/17 at 19:14; Status DC Lidocaine HCl (Xylocaine-Mpf 1% Vial) 2 ml STK-MED ONCE .ROUTE ; Start 01/11/17 at 08:47; Stop 01/11/17 at 08:48; Status DC Sodium Chloride 1,000 ml @ 1,000 mls/hr Q1H PRN IV hypotension; Start 01/11/17 at 08:55; Stop 01/11/17 at 14:54; Status DC Albumin Human 200 ml @ 200 mls/hr 1X PRN PRN IV Hypotension; Start 01/11/17 at 09:00; Stop 01/11/17 at 14:59; Status DC Acetaminophen (Tylenol) 500 mg 1X PRN PRN PO MILD PAIN / TEMP; Start 01/11/17 at 09:00; Stop 01/12/17 at 08:59; Status DC Diphenhydramine HCl (Benadryl) 25 mg 1X PRN PRN IV ITCHING Last administered on 01/11/17 13:30; Start 01/11/17 at 09:00; Stop 01/12/17 at 08:59; Status DC Info (PHARMACY MONITORING -- do not chart) 1 each PRN DAILY PRN MC SEE COMMENTS ; Start 01/11/17 at 09:00 Lidocaine HCl (Xylocaine-Mpf 1% Vial) 2 ml 1X ONCE INJ Last administered on 10:01; Start 01/11/17 at 09:00; Stop 01/11/17 at 09:02; Status DC Albumin Human 500 ml @ 125 mls/hr 1X ONCE IV Last administered on 01/11/17 11:50; Start 01/11/17 at 11:45; Stop 01/11/17 at 15:44; Status DC Nitroglycerin (Nitrostat) 0.4 mg STK-MED ONCE SL ; Start 01/11/17 at 12:07; Stop 01/11/17 at 12:08; Status DC Nitroglycerin (Nitrostat) 0.4 mg PRN Q5MIN PRN SL CHEST PAIN Last administered on 01/11/17 12:35; Start 01/11/17 at 12:15 Morphine Sulfate 3 mg 1X ONCE IV Last administered on 01/11/17 12:15; Start 01/11/17 at 12:15; Stop 01/11/17 at 12:16; Status DC Digoxin (Lanoxin) 250 mcg 1X ONCE IV Last administered on 01/11/17 12:34; Start 01/11/17 at 12:30; Stop 01/11/17 at 12:31; Status DC Fentanyl Citrate (Fentanyl 5ml Vial) 250 mcg STK-MED ONCE .ROUTE ; Start at 13:07; Stop 01/11/17 at 13:08; Status DC Midazolam HCl (Versed) 5 mg STK-MED ONCE .ROUTE ; Start 01/11/17 at 13:07; Stop 01/11/17 at 13:08; Status DC Iohexol (Omnipaque 350 Mg/ml) 100 ml STK-MED ONCE .ROUTE ; Start 01/11/17 at 13: 08; Stop 01/11/17 at 13:09; Status DC Heparin Sodium/ Sodium Chloride 500 ml @ As Directed STK-MED ONCE .ROUTE ; Start 01/11/17 at 13:09; Stop 01/11/17 at 13:10; Status DC Lidocaine HCl 20 ml STK-MED ONCE .ROUTE ; Start 01/11/17 at 13:09; Stop at 13:10; Status DC Heparin Sodium/ Sodium Chloride 1,000 unit 1X ONCE IART Last administered on 13:50; Start 01/11/17 at 13:45; Stop 01/11/17 at 13:46; Status DC Midazolam HCl (Versed) 1 mg 1X ONCE IV Last administered on 01/11/17 13:51; Start 01/11/17 at 13:45; Stop 01/11/17 at 13:46; Status DC Fentanyl Citrate (Fentanyl 5ml Vial) 50 mcg 1X ONCE IV Last administered on 13:51; Start 01/11/17 at 13:45; Stop 01/11/17 at 13:46; Status DC Iohexol (Omnipaque 350 Mg/ml) 81 ml 1X ONCE IART Last administered on 13:51; Start 01/11/17 at 13:45; Stop 01/11/17 at 13:46; Status DC Lidocaine HCl 12 ml 1X ONCE IJ Last administered on 01/11/17 13:50; Start at 13:45; Stop 01/11/17 at 13:46; Status DC Info (Do NOT chart on this entry -- for MONITORING) 1 each PRN DAILY PRN MC SEE COMMENTS; Start 01/11/17 at 14:00; Stop 01/13/17 at 13:59; Status DC Albumin Human 250 ml @ 62.5 mls/hr 1X ONCE IV Last administered on 01/11/17 14:15; Start 01/11/17 at 14:15; Stop 01/11/17 at 18:14; Status DC Digoxin (Lanoxin) 250 mcg 1X ONCE IV Last administered on 01/11/17 19:02; Start 01/11/17 at 18:45; Stop 01/11/17 at 18:46; Status DC Ondansetron HCl (Zofran) 8 mg PRN Q6HRS PRN IV NAUSEA/VOMITING Last administered on 01/15/17 04:04; Start 01/11/17 at 18:45 Enoxaparin Sodium (Lovenox 100mg Syringe) 90 mg Q24H SQ Last administered on 21:09; Start 01/11/17 at 20:00; Stop 01/15/17 at 11:08; Status DC Propafenone HCl (Rythmol) 75 mg BID PO Last administered on 01/15/17 20:57; Start 01/12/17 at 21:00 Norepinephrine Bitartrate 250 ml @ 0 mls/hr CONT PRN IV SEE I/O RECORD Last administered on 01/15/17 20:50; Start 01/12/17 at 15:45 Info (Anti-Coagulation Monitoring By Pharmacy) 1 each PRN DAILY PRN MC SEE COMMENTS Last administered on 01/16/17 09:16; Start 01/13/17 at 09:00 Magnesium Sulfate/ Dextrose 50 ml @ 25 mls/hr PRN DAILY PRN IV for Mag < 1.7 on am labs; Start 01/13/17 at 10:45 Sodium Chloride 1,000 ml @ 80 mls/hr [id number] IV Last administered on 10:50; Start 01/13/17 at 10:45; Stop 01/14/17 at 19:07; Status DC Sodium Chloride 500 ml @ 0 mls/hr QID PRN IV for MAP < 65 Last administered on 01/14/17 01:15; Start 01/13/17 at 10:45 Sodium Chloride 1,000 ml @ 1,000 mls/hr Q1H PRN IV hypotension; Start 01/14/17 at 09:11; Stop 01/14/17 at 15:10; Status DC Info (PHARMACY MONITORING -- do not chart) 1 each PRN DAILY PRN MC SEE COMMENTS ; Start 01/14/17 at 09:15; Status UNV Piperacillin Sod/ Tazobactam Sod 2.25 gm/Sodium Chloride 50 ml @ 100 mls/hr Q8HRS IV Last administered on 01/16/17 05:24; Start 01/14/17 at 12:30 Micafungin Sodium 100 mg/Dextrose 100 ml @ 100 mls/hr Q24H IV Last administered on 01/15/17 14:32; Start 01/14/17 at 13:00 Vancomycin HCl (Vanco Per Pharmacy) 1 each PRN DAILY PRN MC SEE COMMENTS Last administered on 01/16/17 07:30; Start 01/15/17 at 07:15 Vancomycin HCl 2 gm/Sodium Chloride 500 ml @ 250 mls/hr 1X ONCE IV Last administered on 01/15/17 07:55; Start 01/15/17 at 08:00; Stop 01/15/17 at 09:59 ; Status DC Metronidazole 100 ml @ 100 mls/hr Q8H IV Last administered on 01/16/17 00:03 ; Start 01/15/17 at 08:00; Stop 01/16/17 at 08:02; Status DC Iohexol (Omnipaque 300 Mg/ml) 75 ml 1X ONCE IV ; Start 01/15/17 at 08:00; Stop 01/15/17 at 08:01; Status DC Lidocaine/Sodium Bicarbonate (Buffered Lidocaine 1%) 3 ml 1X ONCE IJ Last administered on 01/15/17 09:00; Start 01/15/17 at 08:30; Stop 01/15/17 at 08:32 ; Status DC Heparin Sodium/ Sodium Chloride 60 unit 1X ONCE IV Last administered on 09:01; Start 01/15/17 at 08:30; Stop 01/15/17 at 08:32; Status DC Heparin Sodium (Porcine) (Heparin Sodium) 3,000 unit 1X ONCE IV Last administered on 01/15/17 20:21; Start 01/15/17 at 21:00; Stop 01/15/17 at 21:01 ; Status DC Heparin Sodium/ Dextrose 500 ml @ 0 mls/hr CONT PRN IV SEE I/O RECORD Last administered on 01/15/17 20:19; Start 01/15/17 at 21:00 Iohexol (Omnipaque 300 Mg/ml) 75 ml 1X ONCE IV Last administered on 01/15/17 12:15; Start 01/15/17 at 12:15; Stop 01/15/17 at 12:16; Status DC Info (Do NOT chart on this entry -- for MONITORING) 1 each PRN DAILY PRN MC SEE COMMENTS; Start 01/15/17 at 12:15; Stop 01/17/17 at 12:14 Vancomycin HCl 1 each 1X ONCE MC ; Start 01/17/17 at 05:00; Stop 01/17/17 at 05: 01 Info (PHARMACY MONITORING -- do not chart) 1 each PRN DAILY PRN MC SEE COMMENTS ; Start 01/16/17 at 07:45; Status UNV Info (PHARMACY MONITORING -- do not chart) 1 each PRN DAILY PRN MC SEE COMMENTS ; Start 01/16/17 at 07:45; Status UNV Info (PHARMACY MONITORING -- do not chart) 1 each PRN DAILY PRN MC SEE COMMENTS ; Start 01/16/17 at 07:45; Status UNV Sodium Chloride 1,000 ml @ 1,000 mls/hr Q1H PRN IV hypotension; Start 01/16/17 at 07:32; Stop 01/16/17 at 13:31 Albumin Human 200 ml @ 200 mls/hr 1X PRN PRN IV Hypotension; Start 01/16/17 at 07:45; Stop 01/16/17 at 13:44 Info (PHARMACY MONITORING -- do not chart) 1 each PRN DAILY PRN MC SEE COMMENTS ; Start 01/16/17 at 07:45; Status UNV Gentamicin Sulfate 1 each ONCE ONCE MC ; Start 01/16/17 at 08:00; Stop at 08:04; Status DC Gentamicin Sulfate 180 mg/ Sodium Chloride 104.5 ml @ 104.5 mls/ hr 1X ONCE IV Last administered on 01/16/17t 11:50; Start 01/16/17 at 09:00; Stop at 09:59; Status DC Active Scripts Active Reported Ferric Citrate 210 Mg Tablet 210 Mg PO Meloxicam 7.5 Mg Tablet 1 Tab PO DAILY Atenolol 50 Mg Tablet 1 Tab PO DAILY Tylenol (Acetaminophen) 325 Mg Tablet 500 Mg PO PRN Q6HRS PRN Aspir 81 (Aspirin) 81 Mg Tablet.dr 1 Tab PO DAILY Fish Oil 1,000 Mg Capsule ([place]-3 Fatty Acids/Fish Oil) 1 Each Capsule 1 Each PO BID Vitamin D2 (Ergocalciferol (Vitamin D2)) 50,000 Unit Capsule 50,000 Unit PO WEEKLY Allopurinol 100 Mg Tablet 1 Tab PO DAILY Nephro-Ray Tablet (Folic Acid/Vitamin B Comp W-C) 0.8 Mg Tablet 1 Tab PO HS Gabapentin 100 Mg Capsule 100 Mg PO BID Omeprazole 20 Mg Capsule.dr 20 Mg PO DAILY Calcium Acetate 667 Mg Capsule 2,001 Mg PO TIDWMEALS Vitals/I & O Vital Sign - Last 24 Hours 01/15/17 01/15/17 01/15/17 01/15/17 13:00 13:30 14:00 14:30 Pulse 98 96 100 102 Resp 18 16 18 12 B/P (MAP) 121/70 (87) 120/64 (82) 105/81 (89) 111/39 (63) Pulse Ox 97 95 96 95 O2 Delivery Nasal Cannula Nasal Cannula Nasal Cannula Nasal Cannula O2 Flow Rate 2.0 2.0 2.0 2.0 01/15/17 01/15/17 01/15/17 01/15/17 15:00 15:15 16:00 16:00 Temp 98.0 98.0 Pulse 100 99 96 Resp 15 19 16 B/P (MAP) 99/34 (55) 87/49 (62) 95/45 (62) Pulse Ox 95 95 97 O2 Delivery Nasal Cannula Nasal Cannula Nasal Cannula Nasal Cannula O2 Flow Rate 2.0 2.0 2.0 2.0 01/15/17 01/15/17 01/15/17 01/15/17 17:00 18:00 19:19 19:32 Temp 97.8 97.8 Pulse 99 88 93 Resp 12 11 24 B/P (MAP) 97/58 (71) 100/55 (70) 90/33 (52) Pulse Ox 98 96 98 O2 Delivery Nasal Cannula Nasal Cannula Nasal Cannula Nasal Cannula O2 Flow Rate 2.0 2.0 2.0 2.0 01/15/17 01/15/17 01/15/17 01/15/17 20:00 20:15 20:30 20:57 Pulse 96 98 96 101 B/P (MAP) 83/41 (55) 88/38 (55) 81/36 (51) 89/30 Pulse Ox 100 98 O2 Delivery Nasal Cannula Nasal Cannula Nasal Cannula O2 Flow Rate 2.0 2.0 2.0 01/15/17 01/15/17 01/15/17 01/15/17 21:00 21:30 22:00 22:30 Pulse 86 90 66 84 B/P (MAP) 90/41 (57) 87/43 (58) 97/36 (56) 95/49 (64) Pulse Ox 98 99 100 98 O2 Delivery Nasal Cannula Nasal Cannula Nasal Cannula Nasal Cannula O2 Flow Rate 2.0 2.0 2.0 2.0 01/15/17 01/15/17 01/16/17 01/16/17 23:00 23:30 00:00 00:00 Pulse 82 84 92 B/P (MAP) 82/41 (55) 82/46 (58) 94/32 (52) Pulse Ox 99 100 97 O2 Delivery Nasal Cannula Nasal Cannula Nasal Cannula Nasal Cannula O2 Flow Rate 2.0 2.0 2.0 01/16/17 01/16/17 01/16/17 01/16/17 00:30 01:00 01:29 02:00 Pulse 86 94 90 B/P (MAP) 134/40 (71) 84/32 (49) 73/23 (40) 93/44 (60) Pulse Ox 97 100 O2 Delivery Nasal Cannula Nasal Cannula Nasal Cannula O2 Flow Rate 2.0 2.0 01/16/17 01/16/17 01/16/17 01/16/17 02:30 03:00 03:15 04:00 Pulse 94 100 88 B/P (MAP) 90/46 (61) 80/35 (50) 99/39 (59) 92/38 (56) Pulse Ox 98 O2 Delivery Nasal Cannula O2 Flow Rate 2.0 01/16/17 01/16/17 01/16/17 01/16/17 04:00 04:30 05:04 05:30 Pulse 94 100 90 B/P (MAP) 124/98 (107) 113/60 (77) 108/31 (56) Pulse Ox 99 98 O2 Delivery Nasal Cannula Nasal Cannula Nasal Cannula O2 Flow Rate 2.0 2.0 2.0 01/16/17 01/16/17 01/16/17 01/16/17 06:30 08:00 09:00 10:00 Pulse 110 100 Resp 18 12 B/P (MAP) 92/31 (51) 125/50 (75) 114/41 (65) Pulse Ox 99 100 O2 Delivery Nasal Cannula Nasal Cannula Nasal Cannula O2 Flow Rate 2.0 2.0 2.0 01/16/17 11:00 Pulse 110 Resp 12 B/P (MAP) 95/52 (66) Pulse Ox 100 O2 Delivery Nasal Cannula O2 Flow Rate 2.0 INEZ GRADY MD Jan 16, 2017 12:07
[2017-01-16] MEDS: MICAFUNGIN 100 MG in IV DEXTROSE 5% 100 ML IV SCH (13:42)
--- NOTE | 2017-01-16 14:03 | CARD ---
APPROVED REPORT EXAM: LIMITED Two-dimensional with color Doppler. Other Information Quality : Technically Limited Rhythm : NSRTechnically limited study due to body habitus. INDICATION Infection:Rule out subacute bacterial endocarditis LEFT VENTRICLE The left ventricle is normal size. There is normal left ventricular wall thickness. Left ventricle sy stolic function is normal. There is normal LV segmental wall motion. RIGHT VENTRICLE The right ventricle is normal size. The right ventricular systolic function is normal. AORTIC VALVE Doppler and Color Flow revealed moderate aortic regurgitation. Cannot exclude aortic valvular vegetat ion. there is a mass present in the noncoronary cusp that may be a vegetation. MITRAL VALVE The mitral valve leaflets are calcified. Doppler and Color Flow revealed moderate mitral regurgitatio n. TRICUSPID VALVE The tricuspid valve is not well visualized. Doppler and Color Flow revealed no tricuspid valve regurg itation noted. PULMONIC VALVE The pulmonic valve is not well visualized. GREAT VESSELS The Ao root is normal in size PERICARDIAL EFFUSION There is no evidence of significant pericardial effusion. Critical Notification Date: 01/16/2017 Time: 11:14 Other Discipline : LATOYA Ambriz Critical Value: Yes <Conclusion> Left ventricle systolic function is normal. Cannot exclude aortic valvular vegetation. there is a mass present in the noncoronary cusp that may b e a vegetation. Doppler and Color Flow revealed moderate aortic regurgitation. Doppler and Color Flow revealed moderate mitral regurgitation. Doppler and Color Flow revealed no tricuspid valve regurgitation noted. The pulmonic valve is not well visualized. There is no evidence of significant pericardial effusion.
[2017-01-16] MEDS ORDERED: LIDOCAINE 2% VISCOUS 15 ML SOLUTION. MM ONE (14:45)
[2017-01-16] MEDS ORDERED: LIDOCAINE 2% TOPICAL JELLY 5GM TUBE. TP ONE (14:45)
[2017-01-16] MEDS ORDERED: BENZOCAINE ONE 20% MUCOSAL SPRAY. MM (14:45)
--- NOTE | 2017-01-16 15:33 | PDOC ---
PROGRESS NOTES Assessment Assessment Metabolic encephalopathy. Confusion. Generalized weakness. New onset Afib. CHF Renal failure on dialysis. DM HTN Anemia. Gout Obesity RECOMMENDATIONS/PLAN: Treat medical and cardiac disease. OT/PT Discussed with her at bedside in ICU on 01/16/17. HISTORY OF THE PRESENT ILLNESS: 71-y-old female patient with above medical and cardiac diseases was noted MS changes, confusional episodes and generalized weakness, so Neurology was requested for consultation. no focalized sensory of motor deficits noted. Her condition is improving on 01/16/17. Past Medical History Cardiovascular: HTN, Other Heme/Onc: Anemia NOS Rheumatologic: Gout Renal/: Chronic renal failure Endocrine: Diabetes, Hyperparathyroidism, Other Past Surgical History Pacemaker, Cholecystectomy, Hysterectomy, Other Family History No Significant Social History ALCOHOL: none Drugs: None ALLERGY: Reviewed. MEDICATIONS: Refer to MAR REVIEW OF SYSTEMS: Constitutional: No malnutrition, weight loss, cachexia. Head: No recent traumatic brain or head injury. Skin: No edema, or rash. Ear: No infection. Eyes: No vision loss or color blindness. Nose: No bleeding or purulent discharges. Hearing: Hearing decrease. Neck: No injury. Breast: No history of cancer, masses,or discharges. Cardiac: New onset AFib, Pacemaker Placement, HTN. Pulmonary: No COPD. GI: No GI ulcer, GI bleeding. Urinary/genital: UTI. Endocrinologic: Diabetes Mellitus, obesity. Skeletomuscular: Generalized weakness. Neurological: see HP. Psychiatric: Denies drug use/abuse. Otherwise, not -etqhl review of systems. PHYSICAL EXAMINATION: General appearance is in subacute distress. HEENT: Normocephalic and nontraumatic. Eyes, nose, ears, and throat are unremarkable. Neck is supple. No lymphadenopathy. No crepitus. Cardiovascular: S1, S2, irregular rate and rhythm. Pulmonary: Clear to auscultation bilaterally. Abdomen: Bowel sounds are positive. Extremities: No rash, lesions, or edema. No restriction of range of motion NEUROLOGICAL EXAMINATION: Awake. Not fully oriented to time, but knows place and person. PERRL. EOMI, but slow. CN: no acute focal findings. Muscle tone: within normal. Muscle strength: 4 UE, 3 LE DTR: 2- Plantar reflex: Flexor response bilaterally Gait: not examined in bed. Sensory exam: no abnormal findings. Not able to access cerebellar signs this time. F-T-N test not performed due to not follow commands. Objective Objective Vital Signs Date Time Temp Pulse Resp B/P (MAP) Pulse Ox O2 Delivery O2 Flow Rate FiO2 01/16/17 15:00 100 12 91/42 (58) 92 Nasal Cannula 2.0 01/15/17 19:19 97.8 97.8 Vitals Signs Vitals VS - Last 72 Hours, by Label Date Time Temp Pulse Resp B/P (MAP) Pulse Ox O2 Delivery O2 Flow Rate FiO2 01/16/17 15:00 100 12 91/42 (58) 92 Nasal Cannula 2.0 01/16/17 14:00 100 18 112/46 (68) 99 Nasal Cannula 2.0 01/16/17 13:00 90 12 97/44 (61) 100 Nasal Cannula 2.0 01/16/17 12:00 Nasal Cannula 2.0 01/16/17 12:00 120 12 124/54 (77) 100 Nasal Cannula 2.0 01/16/17 11:00 110 12 95/52 (66) 100 Nasal Cannula 2.0 01/16/17 10:00 100 12 114/41 (65) 100 Nasal Cannula 2.0 01/16/17 09:00 110 18 125/50 (75) 99 Nasal Cannula 2.0 01/16/17 08:00 Nasal Cannula 2.0 01/16/17 06:30 92/31 (51) 01/16/17 05:30 90 108/31 (56) 98 Nasal Cannula 2.0 01/16/17 05:04 100 113/60 (77) 99 Nasal Cannula 2.0 01/16/17 04:30 94 124/98 (107) 01/16/17 04:00 Nasal Cannula 2.0 01/16/17 04:00 88 92/38 (56) 01/16/17 03:15 100 99/39 (59) 01/16/17 03:00 94 80/35 (50) 98 Nasal Cannula 2.0 01/16/17 02:30 90/46 (61) 01/16/17 02:00 90 93/44 (60) 100 Nasal Cannula 2.0 01/16/17 01:29 73/23 (40) 01/16/17 01:00 94 84/32 (49) Nasal Cannula 01/16/17 00:30 86 134/40 (71) 97 Nasal Cannula 2.0 01/16/17 00:00 92 94/32 (52) 97 Nasal Cannula 01/16/17 00:00 Nasal Cannula 2.0 01/15/17 23:30 84 82/46 (58) 100 Nasal Cannula 2.0 01/15/17 23:00 82 82/41 (55) 99 Nasal Cannula 2.0 01/15/17 22:30 84 95/49 (64) 98 Nasal Cannula 2.0 01/15/17 22:00 66 97/36 (56) 100 Nasal Cannula 2.0 01/15/17 21:30 90 87/43 (58) 99 Nasal Cannula 2.0 01/15/17 21:00 86 90/41 (57) 98 Nasal Cannula 2.0 01/15/17 20:57 101 89/30 01/15/17 20:30 96 81/36 (51) 98 Nasal Cannula 2.0 01/15/17 20:15 98 88/38 (55) 100 Nasal Cannula 2.0 01/15/17 20:00 96 83/41 (55) Nasal Cannula 2.0 01/15/17 19:32 Nasal Cannula 2.0 01/15/17 19:19 97.8 93 24 90/33 (52) 98 Nasal Cannula 2.0 97.8 01/15/17 18:00 88 11 100/55 (70) 96 Nasal Cannula 2.0 01/15/17 17:00 99 12 97/58 (71) 98 Nasal Cannula 2.0 01/15/17 16:00 Nasal Cannula 2.0 01/15/17 16:00 98.0 96 16 95/45 (62) 97 Nasal Cannula 2.0 98.0 01/15/17 15:15 99 19 87/49 (62) 95 Nasal Cannula 2.0 01/15/17 15:00 100 15 99/34 (55) 95 Nasal Cannula 2.0 01/15/17 14:30 102 12 111/39 (63) 95 Nasal Cannula 2.0 01/15/17 14:00 100 18 105/81 (89) 96 Nasal Cannula 2.0 01/15/17 13:30 96 16 120/64 (82) 95 Nasal Cannula 2.0 01/15/17 13:00 98 18 121/70 (87) 97 Nasal Cannula 2.0 01/15/17 12:00 98.2 96 20 114/51 (72) 97 Nasal Cannula 2.0 98.2 01/15/17 12:00 Nasal Cannula 2.0 01/15/17 11:00 104 19 95/52 (66) 96 Nasal Cannula 2.0 01/15/17 10:00 112 16 95/47 (63) 95 Nasal Cannula 2.0 01/15/17 09:00 92 20 96/58 (71) 99 Nasal Cannula 2.0 01/15/17 08:00 Nasal Cannula 2.0 01/15/17 08:00 97.9 105 20 116/81 (93) 97 Nasal Cannula 2.0 97.9 01/15/17 07:54 97 119/41 01/15/17 07:00 88 28 119/41 (67) 96 Nasal Cannula 2.0 Laboratory Laboratory Laboratory Tests Test 01/16/17 04:45 01/16/17 05:50 01/16/17 08:50 01/16/17 13:50 White Blood Count 20.7 x10^3/uL (4.0-11.0) Red Blood Count 2.91 x10^6/uL (3.50-5.40) Hemoglobin 10.1 g/dL (12.0-15.5) Hematocrit 30.7 % (36.0-47.0) Mean Corpuscular Volume 106 fL (79-100) Mean Corpuscular Hemoglobin 35 pg (25-35) Mean Corpuscular Hemoglobin Concent 33 g/dL (31-37) Red Cell Distribution Width 14.5 % (11.5-14.5) Platelet Count 81 x10^3/uL (140-400) Neutrophils (%) (Auto) 82 % (31-73) Lymphocytes (%) (Auto) 10 % (24-48) Monocytes (%) (Auto) 7 % (0-9) Eosinophils (%) (Auto) 1 % (0-3) Basophils (%) (Auto) 0 % (0-3) Neutrophils # (Auto) 17.1 x10^3uL (1.8-7.7) Lymphocytes # (Auto) 2.0 x10^3/uL (1.0-4.8) Monocytes # (Auto) 1.5 x10^3/uL (0.0-1.1) Eosinophils # (Auto) 0.2 x10^3/uL (0.0-0.7) Basophils # (Auto) 0.0 x10^3/uL (0.0-0.2) Sodium Level 137 mmol/L (136-145) Potassium Level 4.6 mmol/L (3.5-5.1) Chloride Level 99 mmol/L (98-107) Carbon Dioxide Level 26 mmol/L (21-32) Anion Gap 12 (6-14) Blood Urea Nitrogen 36 mg/dL (7-20) Creatinine 4.6 mg/dL (0.6-1.0) Estimated GFR (Cockcroft-Gault) 9.4 Glucose Level 139 mg/dL (70-99) Calcium Level 7.0 mg/dL (8.5-10.1) Phosphorus Level 4.9 mg/dL (2.6-4.7) Magnesium Level 1.9 mg/dL (1.8-2.4) Albumin 2.6 g/dL (3.4-5.0) Heparin Anti-Xa Act, Unfractionated 0.47 IU/mL (0.30-0.70) 0.43 IU/mL (0.30-0.70) Microbiology 01/14/17 Blood Culture - Preliminary, Resulted 01/14/17 Blood Culture Result 1 ([facility]) - Preliminary, Resulted Medication Medications Current Medications Albumin Human 200 ml @ 200 mls/hr 1X PRN PRN IV Hypotension; Start 01/16/17 at 07:45; Stop 01/16/17 at 13:44; Status DC Benzocaine (Hurricaine One) 1spray 1X ONCE MM ; Start 01/16/17 at 14:45; Stop 01/16/17 at 14:53; Status DC Fentanyl Citrate (Fentanyl 2ml Vial) 25 mcg PRN Q5MIN PRN IV MILD PAIN; Start 01/17/17 at 07:00; Stop 01/18/17 at 06:59 Fentanyl Citrate (Fentanyl 2ml Vial) 50 mcg PRN Q5MIN PRN IV MODERATE PAIN; Start 01/17/17 at 07:00; Stop 01/18/17 at 06:59 Gentamicin Sulfate 180 mg/ Sodium Chloride 104.5 ml @ 104.5 mls/ hr 1X ONCE IV Last administered on 01/16/17t 11:50; Start 01/16/17 at 09:00; Stop at 09:59; Status DC Gentamicin Sulfate 1 each ONCE ONCE MC ; Start 01/16/17 at 08:00; Stop at 08:04; Status DC Heparin Sodium (Porcine) (Heparin Sodium) 3,000 unit 1X ONCE IV Last administered on 01/15/17 20:21; Start 01/15/17 at 21:00; Stop 01/15/17 at 21:01 ; Status DC Heparin Sodium/ Dextrose 500 ml @ 0 mls/hr CONT PRN IV SEE I/O RECORD Last administered on 01/15/17 20:19; Start 01/15/17 at 21:00 Hydromorphone HCl (Dilaudid) 0.5 mg PRN Q10MIN PRN IV SEV PAIN, Second choice; Start 01/17/17 at 07:00; Stop 01/18/17 at 06:59 Info (PHARMACY MONITORING -- do not chart) 1 each PRN DAILY PRN MC SEE COMMENTS ; Start 01/16/17 at 07:45; Status UNV Info (PHARMACY MONITORING -- do not chart) 1 each PRN DAILY PRN MC SEE COMMENTS ; Start 01/16/17 at 07:45; Status UNV Info (PHARMACY MONITORING -- do not chart) 1 each PRN DAILY PRN MC SEE COMMENTS ; Start 01/16/17 at 07:45; Status UNV Info (PHARMACY MONITORING -- do not chart) 1 each PRN DAILY PRN MC SEE COMMENTS ; Start 01/16/17 at 07:45; Status UNV Lidocaine HCl 2 ml PRN 1X PRN ID PRIOR TO IV START; Start 01/17/17 at 07:00; Stop 01/18/17 at 06:59 Lidocaine HCl (Viscous Lidocaine) 15 ml 1X ONCE MM ; Start 01/16/17 at 14:45; Stop 01/16/17 at 14:53; Status DC Lidocaine HCl (Xylocaine 2% Topical 5gm Tube) 1 edwardo 1X ONCE TP ; Start at 14:45; Stop 01/16/17 at 14:53; Status DC Morphine Sulfate 1 mg PRN Q10MIN PRN IV SEVERE PAIN; Start 01/17/17 at 07:00; Stop 01/18/17 at 06:59 Ondansetron HCl (Zofran) 4 mg PRN Q6HRS PRN IV NAUSEA/VOMITING; Start 01/17/17 at 07:00; Stop 01/18/17 at 06:59 Prochlorperazine Edisylate (Compazine) 5 mg PACU PRN PRN IV NAUSEA, MRX1; Start 01/17/17 at 07:00; Stop 01/18/17 at 06:59 Ringer's Solution 1,000 ml @ 30 mls/hr Q24H IV ; Start 01/17/17 at 07:00; Stop 01/17/17 at 18:59 Sodium Chloride 1,000 ml @ 1,000 mls/hr Q1H PRN IV hypotension; Start 01/16/17 at 07:32; Stop 01/16/17 at 13:31; Status DC Vancomycin HCl 1 each 1X ONCE MC ; Start 01/17/17 at 05:00; Stop 01/17/17 at 05: 01 Comment Review of Relevant I have reviewed the following items michelle (where applicable) has been applied. TUNG COX MD Jan 16, 2017 15:33
[2017-01-16] MEDS: NOREPINEPHRIN PREMIX 250 ML IV PRN (19:57)
[2017-01-16] MEDS: HEPARIN 25,000UTS/500ML PREMIX 500 ML IV PRN (19:58)
[2017-01-16] MEDS: PROPAFENONE 150 MG TABLET. PO SCH (21:09)
[2017-01-16] MEDS: FOLIC/VIT B COMP W-C (RENAL) TABLET. PO SCH (21:10)
[2017-01-16] MEDS: DARBEPOETIN ALFA 60 MCG/0.3 ML DISP.SYRIN. SQ SCH (21:10)
[2017-01-17] VITALS (24 sets, daily range): BP systolic 79–117; BP diastolic 32–65
[2017-01-17] MEDS ORDERED: VANCOMYCIN RANDOM LEVEL. MC ONE (05:00)
[2017-01-17] MEDS: PIPERACILLIN/TAZOBACTAM 2.25 GM in IV NORMAL SALINE 50ML 50 ML IV SCH (05:01)
[2017-01-17 05:22] LABS: BASO # 0.1 x10^3/uL (0.0-0.2); BASO % 1 % (0-3); EOS % 2 % (0-3); HEMATOCRIT 30.9 % (36.0-47.0); HEMOGLOBIN 9.8 g/dL (12.0-15.5); LYMPH % 11 % (24-48); MEAN CORPUSCULAR HEMOGLOBIN 35 pg (25-35); MEAN CORPUSCULAR HGB CONC 32 g/dL (31-37); MEAN CORPUSCULAR VOLUME 110 fL (79-100); MONO % 8 % (0-9); NEUT % 79 % (31-73); PLATELET COUNT 63 x10^3/uL (140-400); RED BLOOD COUNT 2.81 x10^6/uL (3.50-5.40); RED CELL DISTRIBUTION WIDTH 14.6 % (11.5-14.5); WHITE BLOOD COUNT 18.4 x10^3/uL (4.0-11.0)
[2017-01-17 06:50] LABS: ALBUMIN 2.8 g/dL (3.4-5.0); ALBUMIN/GLOBULIN RATIO 0.8 (1.0-1.7); CALCIUM 8.5 mg/dL (8.5-10.1); POTASSIUM 4.4 mmol/L (3.5-5.1); TOTAL BILIRUBIN 1.2 mg/dL (0.2-1.0); TOTAL PROTEIN 6.2 g/dL (6.4-8.2)
[2017-01-17 06:52] LABS: CREATININE 3.9 mg/dL (0.6-1.0); GFR 11.3
[2017-01-17 06:54] LABS: PHOSPHORUS 4.1 mg/dL (2.6-4.7)
[2017-01-17] MEDS ORDERED: MORPHINE SULFATE 2 MG/ML DISP.SYRIN. IV PRN (07:00)
[2017-01-17] MEDS ORDERED: fentaNYL PF VIAL 100 MCG/2 ML VIAL IV PRN ×2 (07:00)
[2017-01-17] MEDS ORDERED: LIDOCAINE 1% 1 ML SYRINGE. ID PRN (07:00)
[2017-01-17] MEDS ORDERED: IV RINGERS,LACTATED 1000ML 1,000 ML IV SCH (07:00)
[2017-01-17] MEDS ORDERED: PROCHLORPERAZINE 10 MG/2 ML VIAL. IV PRN (07:00)
[2017-01-17] MEDS ORDERED: HYDROmorphone 2 MG/ML VIAL IV PRN (07:00)
[2017-01-17] MEDS ORDERED: ONDANSETRON PF 4 MG/2 ML VIAL. IV PRN (07:00)
[2017-01-17 08:10] LABS: % EOS 3 % (0-5)
[2017-01-17 08:11] LABS: PLT ESTIMATE DECREASED (ADEQUATE)
[2017-01-17 08:14] LABS: ANISOCYTOSIS SLIGHT; POLYCHROMASIA SLIGHT
--- NOTE | 2017-01-17 08:34 | PDOC2 ---
YUE JOHN RELATIONSHIP EXECUTIVE 01/17/17 0834: CONSULT Date of Consult Date of Consult DATE: 01/17/17 TIME: 08:26 Reason for Consult Reason for Consult: splenic mass Referring Physician Referring Physician: Dr Meza Identification/Chief Complaint Chief Complaint irregular heart rate Problems: Source Source: Caregiver, Chart review, Patient History of Present Illness Reason for Visit: Admitted with irregular heart rate and new onset afib. Subsequently leukocytosis, hypotension required pressors. Currently + vegetation seen on echo and plans for MARY JANE today. CT/US showed splenic mass c/w hemangioma Denies abdominal pain or n/v Past Medical History Cardiovascular: HTN, Other Heme/Onc: Anemia NOS Rheumatologic: Gout Renal/: Chronic renal failure Endocrine: Diabetes, Hyperparathyroidism, Other Past Surgical History Past Surgical History: Pacemaker, Cholecystectomy, Hysterectomy, Other Family History Family History: No Significant Social History ALCOHOL: none Drugs: None Current Problem List Problem List Problems Medical Problems: (1) Non-STEMI (non-ST elevated myocardial infarction) Status: Acute Current Medications Current Medications Current Medications Sodium Chloride 500 ml @ 500 mls/hr 1X ONCE IV Last administered on 06:45; Start 01/09/17 at 06:45; Stop 01/09/17 at 07:44; Status DC Diltiazem HCl (Cardizem) 10 mg 1X ONCE IVP Last administered on 01/09/17 07: 39; Start 01/09/17 at 07:30; Stop 01/09/17 at 07:31; Status DC Diltiazem HCl 125 mg/Dextrose 125 ml @ 0 mls/hr CONT PRN IV SEE I/O RECORD Last administered on 01/09/17 07:40; Start 01/09/17 at 07:30 Aspirin (Children'S Aspirin) 324 mg 1X ONCE PO Last administered on 01/09/17 08:15; Start 01/09/17 at 07:45; Stop 01/09/17 at 07:46; Status DC Darbepoetin Jerome (Aranesp) 60 mcg WEEKLYHS SQ Last administered on 01/16/17 21 :10; Start 01/09/17 at 21:00 Albumin Human 500 ml @ 125 mls/hr 1X ONCE IV Last administered on 01/09/17 13:02; Start 01/09/17 at 13:00; Stop 01/09/17 at 16:59; Status DC Albumin Human 500 ml @ 125 mls/hr 1X ONCE IV Last administered on 01/09/17 16:35; Start 01/09/17 at 16:00; Stop 01/09/17 at 19:59; Status DC Digoxin (Lanoxin) 500 mcg 1X ONCE IV Last administered on 01/09/17 13:03; Start 01/09/17 at 13:00; Stop 01/09/17 at 13:01; Status DC Sodium Chloride 1,000 ml @ 1,000 mls/hr Q1H PRN IV hypotension; Start 01/09/17 at 16:31; Stop 01/09/17 at 22:30; Status DC Sodium Chloride 1,000 ml @ 400 mls/hr Q2H30M PRN IV PATENCY; Start 01/09/17 at 16:31; Stop 01/10/17 at 04:30; Status DC Info (PHARMACY MONITORING -- do not chart) 1 each PRN DAILY PRN MC SEE COMMENTS ; Start 01/09/17 at 16:45; Status Cancel Fentanyl Citrate (Fentanyl 2ml Vial) 50 mcg PRN Q4HRS PRN IV PAIN Last administered on 01/09/17 17:52; Start 01/09/17 at 18:00 Oxycodone/ Acetaminophen (Percocet 5/325) 1 tab PRN Q4HRS PRN PO PAIN Last administered on 01/11/17 08:31; Start 01/09/17 at 18:00 Fentanyl Citrate (Fentanyl 2ml Vial) 50 mcg 1X ONCE IM ; Start 01/09/17 at 20: 00; Stop 01/09/17 at 20:01; Status Cancel Fentanyl Citrate (Fentanyl 2ml Vial) 50 mcg 1X ONCE IV Last administered on 19:57; Start 01/09/17 at 20:00; Stop 01/09/17 at 20:01; Status DC Allopurinol (Zyloprim) 100 mg DAILY PO Last administered on 01/16/17 09:03; Start 01/10/17 at 14:30 Aspirin (Ecotrin) 81 mg DAILY PO Last administered on 01/16/17 09:03; Start at 14:30 Atenolol (Tenormin) 50 mg DAILY PO Last administered on 01/12/17 09:09; Start 01/10/17 at 14:30; Stop 01/12/17 at 14:50; Status DC Calcium Acetate (Phoslo) 2,001 mg TIDWMEALS PO Last administered on 01/16/17 17:40; Start 01/10/17 at 17:00 Vitamin B Complex/ Vitamin C (Tsering-Ray) 1 tab HS PO Last administered on 21:10; Start 01/10/17 at 21:00 Gabapentin (Neurontin) 100 mg BID PO Last administered on 01/16/17 21:10; Start 01/10/17 at 14:30 Meloxicam (Mobic) 7.5 mg DAILY PO Last administered on 01/16/17 09:03; Start 01/10/17 at 14:30 Fish Oil (Fish Oil) 1,000 mg DAILY PO Last administered on 01/16/17 09:03; Start 01/11/17 at 09:00 Pantoprazole Sodium (Protonix) 40 mg DAILYAC PO Last administered on 01/16/17 09:02; Start 01/10/17 at 14:30 Digoxin (Lanoxin) 500 mcg 1X ONCE IV Last administered on 01/10/17 15:23; Start 01/10/17 at 15:30; Stop 01/10/17 at 15:31; Status DC Albumin Human 500 ml @ 125 mls/hr 1X ONCE IV Last administered on 01/10/17 15:22; Start 01/10/17 at 15:15; Stop 01/10/17 at 19:14; Status DC Lidocaine HCl (Xylocaine-Mpf 1% Vial) 2 ml STK-MED ONCE .ROUTE ; Start 01/11/17 at 08:47; Stop 01/11/17 at 08:48; Status DC Sodium Chloride 1,000 ml @ 1,000 mls/hr Q1H PRN IV hypotension; Start 01/11/17 at 08:55; Stop 01/11/17 at 14:54; Status DC Albumin Human 200 ml @ 200 mls/hr 1X PRN PRN IV Hypotension; Start 01/11/17 at 09:00; Stop 01/11/17 at 14:59; Status DC Acetaminophen (Tylenol) 500 mg 1X PRN PRN PO MILD PAIN / TEMP; Start 01/11/17 at 09:00; Stop 01/12/17 at 08:59; Status DC Diphenhydramine HCl (Benadryl) 25 mg 1X PRN PRN IV ITCHING Last administered on 01/11/17 13:30; Start 01/11/17 at 09:00; Stop 01/12/17 at 08:59; Status DC Info (PHARMACY MONITORING -- do not chart) 1 each PRN DAILY PRN MC SEE COMMENTS ; Start 01/11/17 at 09:00 Lidocaine HCl (Xylocaine-Mpf 1% Vial) 2 ml 1X ONCE INJ Last administered on 10:01; Start 01/11/17 at 09:00; Stop 01/11/17 at 09:02; Status DC Albumin Human 500 ml @ 125 mls/hr 1X ONCE IV Last administered on 01/11/17 11:50; Start 01/11/17 at 11:45; Stop 01/11/17 at 15:44; Status DC Nitroglycerin (Nitrostat) 0.4 mg STK-MED ONCE SL ; Start 01/11/17 at 12:07; Stop 01/11/17 at 12:08; Status DC Nitroglycerin (Nitrostat) 0.4 mg PRN Q5MIN PRN SL CHEST PAIN Last administered on 01/11/17 12:35; Start 01/11/17 at 12:15 Morphine Sulfate 3 mg 1X ONCE IV Last administered on 01/11/17 12:15; Start 01/11/17 at 12:15; Stop 01/11/17 at 12:16; Status DC Digoxin (Lanoxin) 250 mcg 1X ONCE IV Last administered on 01/11/17 12:34; Start 01/11/17 at 12:30; Stop 01/11/17 at 12:31; Status DC Fentanyl Citrate (Fentanyl 5ml Vial) 250 mcg STK-MED ONCE .ROUTE ; Start at 13:07; Stop 01/11/17 at 13:08; Status DC Midazolam HCl (Versed) 5 mg STK-MED ONCE .ROUTE ; Start 01/11/17 at 13:07; Stop 01/11/17 at 13:08; Status DC Iohexol (Omnipaque 350 Mg/ml) 100 ml STK-MED ONCE .ROUTE ; Start 01/11/17 at 13: 08; Stop 01/11/17 at 13:09; Status DC Heparin Sodium/ Sodium Chloride 500 ml @ As Directed STK-MED ONCE .ROUTE ; Start 01/11/17 at 13:09; Stop 01/11/17 at 13:10; Status DC Lidocaine HCl 20 ml STK-MED ONCE .ROUTE ; Start 01/11/17 at 13:09; Stop at 13:10; Status DC Heparin Sodium/ Sodium Chloride 1,000 unit 1X ONCE IART Last administered on 13:50; Start 01/11/17 at 13:45; Stop 01/11/17 at 13:46; Status DC Midazolam HCl (Versed) 1 mg 1X ONCE IV Last administered on 01/11/17 13:51; Start 01/11/17 at 13:45; Stop 01/11/17 at 13:46; Status DC Fentanyl Citrate (Fentanyl 5ml Vial) 50 mcg 1X ONCE IV Last administered on 13:51; Start 01/11/17 at 13:45; Stop 01/11/17 at 13:46; Status DC Iohexol (Omnipaque 350 Mg/ml) 81 ml 1X ONCE IART Last administered on 13:51; Start 01/11/17 at 13:45; Stop 01/11/17 at 13:46; Status DC Lidocaine HCl 12 ml 1X ONCE IJ Last administered on 01/11/17 13:50; Start at 13:45; Stop 01/11/17 at 13:46; Status DC Info (Do NOT chart on this entry -- for MONITORING) 1 each PRN DAILY PRN MC SEE COMMENTS; Start 01/11/17 at 14:00; Stop 01/13/17 at 13:59; Status DC Albumin Human 250 ml @ 62.5 mls/hr 1X ONCE IV Last administered on 01/11/17 14:15; Start 01/11/17 at 14:15; Stop 01/11/17 at 18:14; Status DC Digoxin (Lanoxin) 250 mcg 1X ONCE IV Last administered on 01/11/17 19:02; Start 01/11/17 at 18:45; Stop 01/11/17 at 18:46; Status DC Ondansetron HCl (Zofran) 8 mg PRN Q6HRS PRN IV NAUSEA/VOMITING Last administered on 01/15/17 04:04; Start 01/11/17 at 18:45 Enoxaparin Sodium (Lovenox 100mg Syringe) 90 mg Q24H SQ Last administered on 21:09; Start 01/11/17 at 20:00; Stop 01/15/17 at 11:08; Status DC Propafenone HCl (Rythmol) 75 mg BID PO Last administered on 01/16/17 21:09; Start 01/12/17 at 21:00 Norepinephrine Bitartrate 250 ml @ 0 mls/hr CONT PRN IV SEE I/O RECORD Last administered on 01/16/17 19:57; Start 01/12/17 at 15:45 Info (Anti-Coagulation Monitoring By Pharmacy) 1 each PRN DAILY PRN MC SEE COMMENTS Last administered on 01/16/17 12:58; Start 01/13/17 at 09:00 Magnesium Sulfate/ Dextrose 50 ml @ 25 mls/hr PRN DAILY PRN IV for Mag < 1.7 on am labs; Start 01/13/17 at 10:45 Sodium Chloride 1,000 ml @ 80 mls/hr [id number] IV Last administered on 10:50; Start 01/13/17 at 10:45; Stop 01/14/17 at 19:07; Status DC Sodium Chloride 500 ml @ 0 mls/hr QID PRN IV for MAP < 65 Last administered on 01/14/17 01:15; Start 01/13/17 at 10:45 Sodium Chloride 1,000 ml @ 1,000 mls/hr Q1H PRN IV hypotension; Start 01/14/17 at 09:11; Stop 01/14/17 at 15:10; Status DC Info (PHARMACY MONITORING -- do not chart) 1 each PRN DAILY PRN MC SEE COMMENTS ; Start 01/14/17 at 09:15; Status UNV Piperacillin Sod/ Tazobactam Sod 2.25 gm/Sodium Chloride 50 ml @ 100 mls/hr Q8HRS IV Last administered on 01/17/17 05:01; Start 01/14/17 at 12:30 Micafungin Sodium 100 mg/Dextrose 100 ml @ 100 mls/hr Q24H IV Last administered on 01/16/17 13:42; Start 01/14/17 at 13:00 Vancomycin HCl (Vanco Per Pharmacy) 1 each PRN DAILY PRN MC SEE COMMENTS Last administered on 01/16/17 07:30; Start 01/15/17 at 07:15 Vancomycin HCl 2 gm/Sodium Chloride 500 ml @ 250 mls/hr 1X ONCE IV Last administered on 01/15/17 07:55; Start 01/15/17 at 08:00; Stop 01/15/17 at 09:59 ; Status DC Metronidazole 100 ml @ 100 mls/hr Q8H IV Last administered on 01/16/17 00:03 ; Start 01/15/17 at 08:00; Stop 01/16/17 at 08:02; Status DC Iohexol (Omnipaque 300 Mg/ml) 75 ml 1X ONCE IV ; Start 01/15/17 at 08:00; Stop 01/15/17 at 08:01; Status DC Lidocaine/Sodium Bicarbonate (Buffered Lidocaine 1%) 3 ml 1X ONCE IJ Last administered on 01/15/17 09:00; Start 01/15/17 at 08:30; Stop 01/15/17 at 08:32 ; Status DC Heparin Sodium/ Sodium Chloride 60 unit 1X ONCE IV Last administered on 09:01; Start 01/15/17 at 08:30; Stop 01/15/17 at 08:32; Status DC Heparin Sodium (Porcine) (Heparin Sodium) 3,000 unit 1X ONCE IV Last administered on 01/15/17 20:21; Start 01/15/17 at 21:00; Stop 01/15/17 at 21:01 ; Status DC Heparin Sodium/ Dextrose 500 ml @ 0 mls/hr CONT PRN IV SEE I/O RECORD Last administered on 01/16/17 19:58; Start 01/15/17 at 21:00 Iohexol (Omnipaque 300 Mg/ml) 75 ml 1X ONCE IV Last administered on 01/15/17 12:15; Start 01/15/17 at 12:15; Stop 01/15/17 at 12:16; Status DC Info (Do NOT chart on this entry -- for MONITORING) 1 each PRN DAILY PRN MC SEE COMMENTS; Start 01/15/17 at 12:15; Stop 01/17/17 at 12:14 Vancomycin HCl 1 each 1X ONCE MC Last administered on 01/17/17t 05:00; Start at 05:00; Stop 01/17/17 at 05:01; Status DC Info (PHARMACY MONITORING -- do not chart) 1 each PRN DAILY PRN MC SEE COMMENTS ; Start 01/16/17 at 07:45; Status UNV Info (PHARMACY MONITORING -- do not chart) 1 each PRN DAILY PRN MC SEE COMMENTS ; Start 01/16/17 at 07:45; Status UNV Info (PHARMACY MONITORING -- do not chart) 1 each PRN DAILY PRN MC SEE COMMENTS ; Start 01/16/17 at 07:45; Status UNV Sodium Chloride 1,000 ml @ 1,000 mls/hr Q1H PRN IV hypotension; Start 01/16/17 at 07:32; Stop 01/16/17 at 13:31; Status DC Albumin Human 200 ml @ 200 mls/hr 1X PRN PRN IV Hypotension; Start 01/16/17 at 07:45; Stop 01/16/17 at 13:44; Status DC Info (PHARMACY MONITORING -- do not chart) 1 each PRN DAILY PRN MC SEE COMMENTS ; Start 01/16/17 at 07:45; Status UNV Gentamicin Sulfate 1 each ONCE ONCE MC ; Start 01/16/17 at 08:00; Stop at 08:04; Status DC Gentamicin Sulfate 180 mg/ Sodium Chloride 104.5 ml @ 104.5 mls/ hr 1X ONCE IV Last administered on 01/16/17 11:50; Start 01/16/17 at 09:00; Stop at 09:59; Status DC Lidocaine HCl (Xylocaine 2% Topical 5gm Tube) 1 edwardo 1X ONCE TP ; Start at 14:45; Stop 01/16/17 at 14:53; Status DC Lidocaine HCl (Viscous Lidocaine) 15 ml 1X ONCE MM ; Start 01/16/17 at 14:45; Stop 01/16/17 at 14:53; Status DC Benzocaine (Hurricaine One) 1spray 1X ONCE MM ; Start 01/16/17 at 14:45; Stop 01/16/17 at 14:53; Status DC Ondansetron HCl (Zofran) 4 mg PRN Q6HRS PRN IV NAUSEA/VOMITING; Start 01/17/17 at 07:00; Stop 01/18/17 at 06:59 Fentanyl Citrate (Fentanyl 2ml Vial) 25 mcg PRN Q5MIN PRN IV MILD PAIN; Start 01/17/17 at 07:00; Stop 01/18/17 at 06:59 Fentanyl Citrate (Fentanyl 2ml Vial) 50 mcg PRN Q5MIN PRN IV MODERATE PAIN; Start 01/17/17 at 07:00; Stop 01/18/17 at 06:59 Morphine Sulfate 1 mg PRN Q10MIN PRN IV SEVERE PAIN; Start 01/17/17 at 07:00; Stop 01/18/17 at 06:59 Ringer's Solution 1,000 ml @ 30 mls/hr Q24H IV ; Start 01/17/17 at 07:00; Stop 01/17/17 at 18:59 Lidocaine HCl 2 ml PRN 1X PRN ID PRIOR TO IV START; Start 01/17/17 at 07:00; Stop 01/18/17 at 06:59 Hydromorphone HCl (Dilaudid) 0.5 mg PRN Q10MIN PRN IV SEV PAIN, Second choice; Start 01/17/17 at 07:00; Stop 01/18/17 at 06:59 Prochlorperazine Edisylate (Compazine) 5 mg PACU PRN PRN IV NAUSEA, MRX1; Start 01/17/17 at 07:00; Stop 01/18/17 at 06:59 Active Scripts Active Reported Ferric Citrate 210 Mg Tablet 210 Mg PO Meloxicam 7.5 Mg Tablet 1 Tab PO DAILY Atenolol 50 Mg Tablet 1 Tab PO DAILY Tylenol (Acetaminophen) 325 Mg Tablet 500 Mg PO PRN Q6HRS PRN Aspir 81 (Aspirin) 81 Mg Tablet. 1 Tab PO DAILY Fish Oil 1,000 Mg Capsule ([place]-3 Fatty Acids/Fish Oil) 1 Each Capsule 1 Each PO BID Vitamin D2 (Ergocalciferol (Vitamin D2)) 50,000 Unit Capsule 50,000 Unit PO WEEKLY Allopurinol 100 Mg Tablet 1 Tab PO DAILY Nephro-Ray Tablet (Folic Acid/Vitamin B Comp W-C) 0.8 Mg Tablet 1 Tab PO HS Gabapentin 100 Mg Capsule 100 Mg PO BID Omeprazole 20 Mg Capsule. 20 Mg PO DAILY Calcium Acetate 667 Mg Capsule 2,001 Mg PO TIDWMEALS Allergies Allergies: Coded Allergies: ibuprofen (Verified Allergy, Intermediate, 02/29/16) "THINKS IT CAUSES HER KIDNEYS" I S O L A T I O N *CONTACT* (Verified Allergy, Unknown, 01/10/17) mrsa ROS General: YES: Fatigue, Appetite (loss) PSYCHOLOGICAL ROS: No: Anxiety, Behavioral Disorder Eyes: No Blurry vision, No Double vision HEENT: No: Heacaches, Sore Throat Hematological and Lymphatic: YES: Other (on heparin drip, afib) Respiratory: YES: SOB with excertion, No: Cough Cardiovascular: No Chest Pain, No Palpitations Gastrointestinal: Yes Other (see hpi) Genitourinary: No Dysuria, No Hematuria Musculoskeletal: Yes Muscular Weakness, No Joint Swelling Neurological: Yes Impaired Coord/balance, No Numbness/Tingling Skin: No Pruritus, No Rash Physical Exam General: Alert, Cooperative, Other (some confusion at times) HEENT: Atraumatic, Mucous membr. moist/pink Lungs: Other (diminished, requiring 02) Heart: Other (afib) Abdomen: Soft, No tenderness, No masses Extremities: No clubbing, No cyanosis Skin: No breakdown, No significant lesion Neuro: Normal speech, Sensation intact Psych/Mental Status: Mental status NL, Mood NL MUSCULOSKELETAL: No deformity, No swelling Vitals VITALS Vital Signs Date Time Temp Pulse Resp B/P (MAP) Pulse Ox O2 Delivery O2 Flow Rate FiO2 01/17/17 08:00 97.6 104 24 103/43 (63) 100 Nasal Cannula 2.0 97.6 Labs Labs Laboratory Tests Test 01/15/17 11:04 01/16/17 04:45 01/16/17 05:50 01/16/17 08:50 Lactic Acid Level 2.0 mmol/L (0.4-2.0) White Blood Count 20.7 x10^3/uL (4.0-11.0) Red Blood Count 2.91 x10^6/uL (3.50-5.40) Hemoglobin 10.1 g/dL (12.0-15.5) Hematocrit 30.7 % (36.0-47.0) Mean Corpuscular Volume 106 fL (79-100) Mean Corpuscular Hemoglobin 35 pg (25-35) Mean Corpuscular Hemoglobin Concent 33 g/dL (31-37) Red Cell Distribution Width 14.5 % (11.5-14.5) Platelet Count 81 x10^3/uL (140-400) Neutrophils (%) (Auto) 82 % (31-73) Lymphocytes (%) (Auto) 10 % (24-48) Monocytes (%) (Auto) 7 % (0-9) Eosinophils (%) (Auto) 1 % (0-3) Basophils (%) (Auto) 0 % (0-3) Neutrophils # (Auto) 17.1 x10^3uL (1.8-7.7) Lymphocytes # (Auto) 2.0 x10^3/uL (1.0-4.8) Monocytes # (Auto) 1.5 x10^3/uL (0.0-1.1) Eosinophils # (Auto) 0.2 x10^3/uL (0.0-0.7) Basophils # (Auto) 0.0 x10^3/uL (0.0-0.2) Sodium Level 137 mmol/L (136-145) Potassium Level 4.6 mmol/L (3.5-5.1) Chloride Level 99 mmol/L (98-107) Carbon Dioxide Level 26 mmol/L (21-32) Anion Gap 12 (6-14) Blood Urea Nitrogen 36 mg/dL (7-20) Creatinine 4.6 mg/dL (0.6-1.0) Estimated GFR (Cockcroft-Gault) 9.4 Glucose Level 139 mg/dL (70-99) Calcium Level 7.0 mg/dL (8.5-10.1) Phosphorus Level 4.9 mg/dL (2.6-4.7) Magnesium Level 1.9 mg/dL (1.8-2.4) Albumin 2.6 g/dL (3.4-5.0) Heparin Anti-Xa Act, Unfractionated 0.47 IU/mL (0.30-0.70) Test 01/16/17 13:50 01/17/17 05:00 Heparin Anti-Xa Act, Unfractionated 0.43 IU/mL (0.30-0.70) 0.31 IU/mL (0.30-0.70) White Blood Count 18.4 x10^3/uL (4.0-11.0) Red Blood Count 2.81 x10^6/uL (3.50-5.40) Hemoglobin 9.8 g/dL (12.0-15.5) Hematocrit 30.9 % (36.0-47.0) Mean Corpuscular Volume 110 fL (79-100) Mean Corpuscular Hemoglobin 35 pg (25-35) Mean Corpuscular Hemoglobin Concent 32 g/dL (31-37) Red Cell Distribution Width 14.6 % (11.5-14.5) Platelet Count 63 x10^3/uL (140-400) Neutrophils (%) (Auto) 79 % (31-73) Lymphocytes (%) (Auto) 11 % (24-48) Monocytes (%) (Auto) 8 % (0-9) Eosinophils (%) (Auto) 2 % (0-3) Basophils (%) (Auto) 1 % (0-3) Neutrophils # (Auto) 14.6 x10^3uL (1.8-7.7) Lymphocytes # (Auto) 2.0 x10^3/uL (1.0-4.8) Monocytes # (Auto) 1.4 x10^3/uL (0.0-1.1) Eosinophils # (Auto) 0.3 x10^3/uL (0.0-0.7) Basophils # (Auto) 0.1 x10^3/uL (0.0-0.2) Segmented Neutrophils % 84 % (35-66) Band Neutrophils % 2 % (0-9) Lymphocytes % 3 % (24-48) Monocytes % 8 % (0-10) Eosinophils % 3 % (0-5) Platelet Estimate Decreased (ADEQUATE) Polychromasia Slight Anisocytosis Slight Sodium Level 137 mmol/L (136-145) Potassium Level 4.4 mmol/L (3.5-5.1) Chloride Level 98 mmol/L (98-107) Carbon Dioxide Level 30 mmol/L (21-32) Anion Gap 9 (6-14) Blood Urea Nitrogen 25 mg/dL (7-20) Creatinine 3.9 mg/dL (0.6-1.0) Estimated GFR (Cockcroft-Gault) 11.3 BUN/Creatinine Ratio 6 (6-20) Glucose Level 110 mg/dL (70-99) Calcium Level 8.5 mg/dL (8.5-10.1) Phosphorus Level 4.1 mg/dL (2.6-4.7) Magnesium Level 2.0 mg/dL (1.8-2.4) Total Bilirubin 1.2 mg/dL (0.2-1.0) Aspartate Amino Transf (AST/SGOT) 35 U/L (15-37) Alanine Aminotransferase (ALT/SGPT) 27 U/L (14-59) Alkaline Phosphatase 118 U/L (46-116) Total Protein 6.2 g/dL (6.4-8.2) Albumin 2.8 g/dL (3.4-5.0) Albumin/Globulin Ratio 0.8 (1.0-1.7) Random Vancomycin Level 13.8 mcg/mL Laboratory Tests Test 01/16/17 08:50 01/16/17 13:50 01/17/17 05:00 Heparin Anti-Xa Act, Unfractionated 0.47 IU/mL (0.30-0.70) 0.43 IU/mL (0.30-0.70) 0.31 IU/mL (0.30-0.70) White Blood Count 18.4 x10^3/uL (4.0-11.0) Red Blood Count 2.81 x10^6/uL (3.50-5.40) Hemoglobin 9.8 g/dL (12.0-15.5) Hematocrit 30.9 % (36.0-47.0) Mean Corpuscular Volume 110 fL (79-100) Mean Corpuscular Hemoglobin 35 pg (25-35) Mean Corpuscular Hemoglobin Concent 32 g/dL (31-37) Red Cell Distribution Width 14.6 % (11.5-14.5) Platelet Count 63 x10^3/uL (140-400) Neutrophils (%) (Auto) 79 % (31-73) Lymphocytes (%) (Auto) 11 % (24-48) Monocytes (%) (Auto) 8 % (0-9) Eosinophils (%) (Auto) 2 % (0-3) Basophils (%) (Auto) 1 % (0-3) Neutrophils # (Auto) 14.6 x10^3uL (1.8-7.7) Lymphocytes # (Auto) 2.0 x10^3/uL (1.0-4.8) Monocytes # (Auto) 1.4 x10^3/uL (0.0-1.1) Eosinophils # (Auto) 0.3 x10^3/uL (0.0-0.7) Basophils # (Auto) 0.1 x10^3/uL (0.0-0.2) Segmented Neutrophils % 84 % (35-66) Band Neutrophils % 2 % (0-9) Lymphocytes % 3 % (24-48) Monocytes % 8 % (0-10) Eosinophils % 3 % (0-5) Platelet Estimate Decreased (ADEQUATE) Polychromasia Slight Anisocytosis Slight Sodium Level 137 mmol/L (136-145) Potassium Level 4.4 mmol/L (3.5-5.1) Chloride Level 98 mmol/L (98-107) Carbon Dioxide Level 30 mmol/L (21-32) Anion Gap 9 (6-14) Blood Urea Nitrogen 25 mg/dL (7-20) Creatinine 3.9 mg/dL (0.6-1.0) Estimated GFR (Cockcroft-Gault) 11.3 BUN/Creatinine Ratio 6 (6-20) Glucose Level 110 mg/dL (70-99) Calcium Level 8.5 mg/dL (8.5-10.1) Phosphorus Level 4.1 mg/dL (2.6-4.7) Magnesium Level 2.0 mg/dL (1.8-2.4) Total Bilirubin 1.2 mg/dL (0.2-1.0) Aspartate Amino Transf (AST/SGOT) 35 U/L (15-37) Alanine Aminotransferase (ALT/SGPT) 27 U/L (14-59) Alkaline Phosphatase 118 U/L (46-116) Total Protein 6.2 g/dL (6.4-8.2) Albumin 2.8 g/dL (3.4-5.0) Albumin/Globulin Ratio 0.8 (1.0-1.7) Random Vancomycin Level 13.8 mcg/mL Images Images Impression: 1. Post cholecystectomy. 2. The liver has a nodular contour suggestive of cirrhosis. 3. The common bile duct is dilated measuring 1.1 cm in diameter. No intrahepatic biliary ductal dilatation is seen. 4. 5.6 cm rounded mass is seen involving the superior aspect of the spleen which is felt to most likely represent a hemangioma as outlined above. Assessment/Plan Assessment/Plan afib, on heparin drip hypotension, on pressors leukocytosis ESRD, dialysis sepsis-MARY JANE planned today for vegetation on echo splenic hemangioma--will review with Dr Willis, likely no surgical plans unless becomes symptomatic BABAK WILLIS MD 01/17/17 0902: CONSULT Allergies Allergies: Coded Allergies: ibuprofen (Verified Allergy, Intermediate, 02/29/16) "THINKS IT CAUSES HER KIDNEYS" I S O L A T I O N *CONTACT* (Verified Allergy, Unknown, 01/10/17) mrsa Assessment/Plan Assessment/Plan Patient seen and examined by me. She is resting in bed, denies pain, no nausea or vomiting. Abd is soft, NT no splenomegaly. U/S showing 5cm splenic mass hemangioma. Benign lesion generally monitor and usually only recommend splenectomy if patient is symptomatic with pain or bleeding. Would recommend F/ U U/S in 6 to 12 months for evaluation on growth of mass. Discussed with the patient and her . YUE JOHN APRN Jan 17, 2017 08:34 BABAK WILLIS MD Jan 17, 2017 09:02
[2017-01-17] MEDS: CALCIUM ACETATE 667 MG CAPSULE PO SCH ×3 (08:41→17:26)
[2017-01-17] MEDS: GABAPENTIN 100 MG CAPSULE. PO SCH ×2 (08:41→21:45)
[2017-01-17] MEDS: ALLOPURINOL 100 MG TABLET. PO SCH (08:41)
[2017-01-17] MEDS: PANTOPRAZOLE 40 MG TABLET.DR. PO SCH (08:41)
[2017-01-17] MEDS: ASPIRIN ENTERIC COATED 81 MG TABLET.DR. PO SCH (08:41)
[2017-01-17] MEDS: MELOXICAM 7.5 MG TABLET PO SCH (08:43)
[2017-01-17] MEDS: OMEGA-3 FATTY ACIDS/FISH OIL 1,000 MG CAPSULE. PO SCH (09:00)
[2017-01-17] MEDS: PROPAFENONE 150 MG TABLET. PO SCH ×2 (09:14→21:45)
--- NOTE | 2017-01-17 09:37 | PDOC ---
PROGRESS NOTES Subjective Subjective Patient is still lethargic with generalized body aches. Appetite still poor. Continues to be in atrial fibrillation with low blood pressure. Objective Objective Vital Signs Date Time Temp Pulse Resp B/P (MAP) Pulse Ox O2 Delivery O2 Flow Rate FiO2 01/17/17 09:14 80 102/45 01/17/17 09:00 16 99 Nasal Cannula 2.0 01/17/17 08:00 97.6 97.6 Physical Exam Physical Exam No significant changes to physical exam. Plan Plan of Care 1. 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 Leukocytosis - Improving; WBC 18.4 today (trending down) - ID following, appreciate input - Continue Vancomycin, Zosyn, Micafungin - Flagyl d/c on 01/16 - (01/16) Blood cultures grew gram+ cocci in pairs and chains - Repeat Blood cultures pending - F/U labs in the AM 3. Atrial fibrillation - Continue Rythmol for now, if not controlled will consider switching to Amiodarone 4. Hypotension - Possible Sepsis. Current medications reviewed. Continue IV fluids. Continue pressors for now. 5. Mass on Spleen - Abdominal US (01/16): 5.6 cm mass consistent with hemangioma - General surgery consulted, appreciate input 6. Possible breast mass - R breast US 01/14: Edema throughout right breast. No solid or cystic mass seen. 7. ESRD - Nephrology following, appreciate input. 8. Anemia - Nephrology following, patient on Aranesp Comment Review of Relevant I have reviewed the following items michelle (where applicable) has been applied. Labs Laboratory Tests Test 01/15/17 11:04 01/16/17 04:45 01/16/17 05:50 01/16/17 08:50 Lactic Acid Level 2.0 mmol/L (0.4-2.0) White Blood Count 20.7 x10^3/uL (4.0-11.0) Red Blood Count 2.91 x10^6/uL (3.50-5.40) Hemoglobin 10.1 g/dL (12.0-15.5) Hematocrit 30.7 % (36.0-47.0) Mean Corpuscular Volume 106 fL (79-100) Mean Corpuscular Hemoglobin 35 pg (25-35) Mean Corpuscular Hemoglobin Concent 33 g/dL (31-37) Red Cell Distribution Width 14.5 % (11.5-14.5) Platelet Count 81 x10^3/uL (140-400) Neutrophils (%) (Auto) 82 % (31-73) Lymphocytes (%) (Auto) 10 % (24-48) Monocytes (%) (Auto) 7 % (0-9) Eosinophils (%) (Auto) 1 % (0-3) Basophils (%) (Auto) 0 % (0-3) Neutrophils # (Auto) 17.1 x10^3uL (1.8-7.7) Lymphocytes # (Auto) 2.0 x10^3/uL (1.0-4.8) Monocytes # (Auto) 1.5 x10^3/uL (0.0-1.1) Eosinophils # (Auto) 0.2 x10^3/uL (0.0-0.7) Basophils # (Auto) 0.0 x10^3/uL (0.0-0.2) Sodium Level 137 mmol/L (136-145) Potassium Level 4.6 mmol/L (3.5-5.1) Chloride Level 99 mmol/L (98-107) Carbon Dioxide Level 26 mmol/L (21-32) Anion Gap 12 (6-14) Blood Urea Nitrogen 36 mg/dL (7-20) Creatinine 4.6 mg/dL (0.6-1.0) Estimated GFR (Cockcroft-Gault) 9.4 Glucose Level 139 mg/dL (70-99) Calcium Level 7.0 mg/dL (8.5-10.1) Phosphorus Level 4.9 mg/dL (2.6-4.7) Magnesium Level 1.9 mg/dL (1.8-2.4) Albumin 2.6 g/dL (3.4-5.0) Heparin Anti-Xa Act, Unfractionated 0.47 IU/mL (0.30-0.70) Test 01/16/17 13:50 01/17/17 05:00 Heparin Anti-Xa Act, Unfractionated 0.43 IU/mL (0.30-0.70) 0.31 IU/mL (0.30-0.70) White Blood Count 18.4 x10^3/uL (4.0-11.0) Red Blood Count 2.81 x10^6/uL (3.50-5.40) Hemoglobin 9.8 g/dL (12.0-15.5) Hematocrit 30.9 % (36.0-47.0) Mean Corpuscular Volume 110 fL (79-100) Mean Corpuscular Hemoglobin 35 pg (25-35) Mean Corpuscular Hemoglobin Concent 32 g/dL (31-37) Red Cell Distribution Width 14.6 % (11.5-14.5) Platelet Count 63 x10^3/uL (140-400) Neutrophils (%) (Auto) 79 % (31-73) Lymphocytes (%) (Auto) 11 % (24-48) Monocytes (%) (Auto) 8 % (0-9) Eosinophils (%) (Auto) 2 % (0-3) Basophils (%) (Auto) 1 % (0-3) Neutrophils # (Auto) 14.6 x10^3uL (1.8-7.7) Lymphocytes # (Auto) 2.0 x10^3/uL (1.0-4.8) Monocytes # (Auto) 1.4 x10^3/uL (0.0-1.1) Eosinophils # (Auto) 0.3 x10^3/uL (0.0-0.7) Basophils # (Auto) 0.1 x10^3/uL (0.0-0.2) Segmented Neutrophils % 84 % (35-66) Band Neutrophils % 2 % (0-9) Lymphocytes % 3 % (24-48) Monocytes % 8 % (0-10) Eosinophils % 3 % (0-5) Platelet Estimate Decreased (ADEQUATE) Polychromasia Slight Anisocytosis Slight Sodium Level 137 mmol/L (136-145) Potassium Level 4.4 mmol/L (3.5-5.1) Chloride Level 98 mmol/L (98-107) Carbon Dioxide Level 30 mmol/L (21-32) Anion Gap 9 (6-14) Blood Urea Nitrogen 25 mg/dL (7-20) Creatinine 3.9 mg/dL (0.6-1.0) Estimated GFR (Cockcroft-Gault) 11.3 BUN/Creatinine Ratio 6 (6-20) Glucose Level 110 mg/dL (70-99) Calcium Level 8.5 mg/dL (8.5-10.1) Phosphorus Level 4.1 mg/dL (2.6-4.7) Magnesium Level 2.0 mg/dL (1.8-2.4) Total Bilirubin 1.2 mg/dL (0.2-1.0) Aspartate Amino Transf (AST/SGOT) 35 U/L (15-37) Alanine Aminotransferase (ALT/SGPT) 27 U/L (14-59) Alkaline Phosphatase 118 U/L (46-116) Total Protein 6.2 g/dL (6.4-8.2) Albumin 2.8 g/dL (3.4-5.0) Albumin/Globulin Ratio 0.8 (1.0-1.7) Random Vancomycin Level 13.8 mcg/mL Laboratory Tests Test 01/16/17 13:50 01/17/17 05:00 Heparin Anti-Xa Act, Unfractionated 0.43 IU/mL (0.30-0.70) 0.31 IU/mL (0.30-0.70) White Blood Count 18.4 x10^3/uL (4.0-11.0) Red Blood Count 2.81 x10^6/uL (3.50-5.40) Hemoglobin 9.8 g/dL (12.0-15.5) Hematocrit 30.9 % (36.0-47.0) Mean Corpuscular Volume 110 fL (79-100) Mean Corpuscular Hemoglobin 35 pg (25-35) Mean Corpuscular Hemoglobin Concent 32 g/dL (31-37) Red Cell Distribution Width 14.6 % (11.5-14.5) Platelet Count 63 x10^3/uL (140-400) Neutrophils (%) (Auto) 79 % (31-73) Lymphocytes (%) (Auto) 11 % (24-48) Monocytes (%) (Auto) 8 % (0-9) Eosinophils (%) (Auto) 2 % (0-3) Basophils (%) (Auto) 1 % (0-3) Neutrophils # (Auto) 14.6 x10^3uL (1.8-7.7) Lymphocytes # (Auto) 2.0 x10^3/uL (1.0-4.8) Monocytes # (Auto) 1.4 x10^3/uL (0.0-1.1) Eosinophils # (Auto) 0.3 x10^3/uL (0.0-0.7) Basophils # (Auto) 0.1 x10^3/uL (0.0-0.2) Segmented Neutrophils % 84 % (35-66) Band Neutrophils % 2 % (0-9) Lymphocytes % 3 % (24-48) Monocytes % 8 % (0-10) Eosinophils % 3 % (0-5) Platelet Estimate Decreased (ADEQUATE) Polychromasia Slight Anisocytosis Slight Sodium Level 137 mmol/L (136-145) Potassium Level 4.4 mmol/L (3.5-5.1) Chloride Level 98 mmol/L (98-107) Carbon Dioxide Level 30 mmol/L (21-32) Anion Gap 9 (6-14) Blood Urea Nitrogen 25 mg/dL (7-20) Creatinine 3.9 mg/dL (0.6-1.0) Estimated GFR (Cockcroft-Gault) 11.3 BUN/Creatinine Ratio 6 (6-20) Glucose Level 110 mg/dL (70-99) Calcium Level 8.5 mg/dL (8.5-10.1) Phosphorus Level 4.1 mg/dL (2.6-4.7) Magnesium Level 2.0 mg/dL (1.8-2.4) Total Bilirubin 1.2 mg/dL (0.2-1.0) Aspartate Amino Transf (AST/SGOT) 35 U/L (15-37) Alanine Aminotransferase (ALT/SGPT) 27 U/L (14-59) Alkaline Phosphatase 118 U/L (46-116) Total Protein 6.2 g/dL (6.4-8.2) Albumin 2.8 g/dL (3.4-5.0) Albumin/Globulin Ratio 0.8 (1.0-1.7) Random Vancomycin Level 13.8 mcg/mL Microbiology 01/16/17 Blood Culture - Preliminary, Resulted NO GROWTH AFTER 1 DAY Medications Current Medications Sodium Chloride 500 ml @ 500 mls/hr 1X ONCE IV Last administered on 06:45; Start 01/09/17 at 06:45; Stop 01/09/17 at 07:44; Status DC Diltiazem HCl (Cardizem) 10 mg 1X ONCE IVP Last administered on 01/09/17 07: 39; Start 01/09/17 at 07:30; Stop 01/09/17 at 07:31; Status DC Diltiazem HCl 125 mg/Dextrose 125 ml @ 0 mls/hr CONT PRN IV SEE I/O RECORD Last administered on 01/09/17 07:40; Start 01/09/17 at 07:30 Aspirin (Children'S Aspirin) 324 mg 1X ONCE PO Last administered on 01/09/17 08:15; Start 01/09/17 at 07:45; Stop 01/09/17 at 07:46; Status DC Darbepoetin Jerome (Aranesp) 60 mcg WEEKLYHS SQ Last administered on 01/16/17 21 :10; Start 01/09/17 at 21:00 Albumin Human 500 ml @ 125 mls/hr 1X ONCE IV Last administered on 01/09/17 13:02; Start 01/09/17 at 13:00; Stop 01/09/17 at 16:59; Status DC Albumin Human 500 ml @ 125 mls/hr 1X ONCE IV Last administered on 01/09/17 16:35; Start 01/09/17 at 16:00; Stop 01/09/17 at 19:59; Status DC Digoxin (Lanoxin) 500 mcg 1X ONCE IV Last administered on 01/09/17 13:03; Start 01/09/17 at 13:00; Stop 01/09/17 at 13:01; Status DC Sodium Chloride 1,000 ml @ 1,000 mls/hr Q1H PRN IV hypotension; Start 01/09/17 at 16:31; Stop 01/09/17 at 22:30; Status DC Sodium Chloride 1,000 ml @ 400 mls/hr Q2H30M PRN IV PATENCY; Start 01/09/17 at 16:31; Stop 01/10/17 at 04:30; Status DC Info (PHARMACY MONITORING -- do not chart) 1 each PRN DAILY PRN MC SEE COMMENTS ; Start 01/09/17 at 16:45; Status Cancel Fentanyl Citrate (Fentanyl 2ml Vial) 50 mcg PRN Q4HRS PRN IV PAIN Last administered on 01/09/17 17:52; Start 01/09/17 at 18:00 Oxycodone/ Acetaminophen (Percocet 5/325) 1 tab PRN Q4HRS PRN PO PAIN Last administered on 01/11/17 08:31; Start 01/09/17 at 18:00 Fentanyl Citrate (Fentanyl 2ml Vial) 50 mcg 1X ONCE IM ; Start 01/09/17 at 20: 00; Stop 01/09/17 at 20:01; Status Cancel Fentanyl Citrate (Fentanyl 2ml Vial) 50 mcg 1X ONCE IV Last administered on 19:57; Start 01/09/17 at 20:00; Stop 01/09/17 at 20:01; Status DC Allopurinol (Zyloprim) 100 mg DAILY PO Last administered on 01/17/17 08:41; Start 01/10/17 at 14:30 Aspirin (Ecotrin) 81 mg DAILY PO Last administered on 01/17/17 08:41; Start at 14:30 Atenolol (Tenormin) 50 mg DAILY PO Last administered on 01/12/17 09:09; Start 01/10/17 at 14:30; Stop 01/12/17 at 14:50; Status DC Calcium Acetate (Phoslo) 2,001 mg TIDWMEALS PO Last administered on 01/17/17 08 :41; Start 01/10/17 at 17:00 Vitamin B Complex/ Vitamin C (Tsering-Ray) 1 tab HS PO Last administered on 21:10; Start 01/10/17 at 21:00 Gabapentin (Neurontin) 100 mg BID PO Last administered on 01/17/17 08:41; Start 01/10/17 at 14:30 Meloxicam (Mobic) 7.5 mg DAILY PO Last administered on 01/17/17 08:43; Start at 14:30 Fish Oil (Fish Oil) 1,000 mg DAILY PO Last administered on 01/16/17 09:03; Start 01/11/17 at 09:00 Pantoprazole Sodium (Protonix) 40 mg DAILYAC PO Last administered on 01/17/17 08:41; Start 01/10/17 at 14:30 Digoxin (Lanoxin) 500 mcg 1X ONCE IV Last administered on 01/10/17 15:23; Start 01/10/17 at 15:30; Stop 01/10/17 at 15:31; Status DC Albumin Human 500 ml @ 125 mls/hr 1X ONCE IV Last administered on 01/10/17 15:22; Start 01/10/17 at 15:15; Stop 01/10/17 at 19:14; Status DC Lidocaine HCl (Xylocaine-Mpf 1% Vial) 2 ml STK-MED ONCE .ROUTE ; Start 01/11/17 at 08:47; Stop 01/11/17 at 08:48; Status DC Sodium Chloride 1,000 ml @ 1,000 mls/hr Q1H PRN IV hypotension; Start 01/11/17 at 08:55; Stop 01/11/17 at 14:54; Status DC Albumin Human 200 ml @ 200 mls/hr 1X PRN PRN IV Hypotension; Start 01/11/17 at 09:00; Stop 01/11/17 at 14:59; Status DC Acetaminophen (Tylenol) 500 mg 1X PRN PRN PO MILD PAIN / TEMP; Start 01/11/17 at 09:00; Stop 01/12/17 at 08:59; Status DC Diphenhydramine HCl (Benadryl) 25 mg 1X PRN PRN IV ITCHING Last administered on 01/11/17 13:30; Start 01/11/17 at 09:00; Stop 01/12/17 at 08:59; Status DC Info (PHARMACY MONITORING -- do not chart) 1 each PRN DAILY PRN MC SEE COMMENTS ; Start 01/11/17 at 09:00 Lidocaine HCl (Xylocaine-Mpf 1% Vial) 2 ml 1X ONCE INJ Last administered on 10:01; Start 01/11/17 at 09:00; Stop 01/11/17 at 09:02; Status DC Albumin Human 500 ml @ 125 mls/hr 1X ONCE IV Last administered on 01/11/17 11:50; Start 01/11/17 at 11:45; Stop 01/11/17 at 15:44; Status DC Nitroglycerin (Nitrostat) 0.4 mg STK-MED ONCE SL ; Start 01/11/17 at 12:07; Stop 01/11/17 at 12:08; Status DC Nitroglycerin (Nitrostat) 0.4 mg PRN Q5MIN PRN SL CHEST PAIN Last administered on 01/11/17 12:35; Start 01/11/17 at 12:15 Morphine Sulfate 3 mg 1X ONCE IV Last administered on 01/11/17 12:15; Start 01/11/17 at 12:15; Stop 01/11/17 at 12:16; Status DC Digoxin (Lanoxin) 250 mcg 1X ONCE IV Last administered on 01/11/17 12:34; Start 01/11/17 at 12:30; Stop 01/11/17 at 12:31; Status DC Fentanyl Citrate (Fentanyl 5ml Vial) 250 mcg STK-MED ONCE .ROUTE ; Start at 13:07; Stop 01/11/17 at 13:08; Status DC Midazolam HCl (Versed) 5 mg STK-MED ONCE .ROUTE ; Start 01/11/17 at 13:07; Stop 01/11/17 at 13:08; Status DC Iohexol (Omnipaque 350 Mg/ml) 100 ml STK-MED ONCE .ROUTE ; Start 01/11/17 at 13: 08; Stop 01/11/17 at 13:09; Status DC Heparin Sodium/ Sodium Chloride 500 ml @ As Directed STK-MED ONCE .ROUTE ; Start 01/11/17 at 13:09; Stop 01/11/17 at 13:10; Status DC Lidocaine HCl 20 ml STK-MED ONCE .ROUTE ; Start 01/11/17 at 13:09; Stop at 13:10; Status DC Heparin Sodium/ Sodium Chloride 1,000 unit 1X ONCE IART Last administered on 13:50; Start 01/11/17 at 13:45; Stop 01/11/17 at 13:46; Status DC Midazolam HCl (Versed) 1 mg 1X ONCE IV Last administered on 01/11/17 13:51; Start 01/11/17 at 13:45; Stop 01/11/17 at 13:46; Status DC Fentanyl Citrate (Fentanyl 5ml Vial) 50 mcg 1X ONCE IV Last administered on 13:51; Start 01/11/17 at 13:45; Stop 01/11/17 at 13:46; Status DC Iohexol (Omnipaque 350 Mg/ml) 81 ml 1X ONCE IART Last administered on 13:51; Start 01/11/17 at 13:45; Stop 01/11/17 at 13:46; Status DC Lidocaine HCl 12 ml 1X ONCE IJ Last administered on 01/11/17 13:50; Start at 13:45; Stop 01/11/17 at 13:46; Status DC Info (Do NOT chart on this entry -- for MONITORING) 1 each PRN DAILY PRN MC SEE COMMENTS; Start 01/11/17 at 14:00; Stop 01/13/17 at 13:59; Status DC Albumin Human 250 ml @ 62.5 mls/hr 1X ONCE IV Last administered on 01/11/17 14:15; Start 01/11/17 at 14:15; Stop 01/11/17 at 18:14; Status DC Digoxin (Lanoxin) 250 mcg 1X ONCE IV Last administered on 01/11/17 19:02; Start 01/11/17 at 18:45; Stop 01/11/17 at 18:46; Status DC Ondansetron HCl (Zofran) 8 mg PRN Q6HRS PRN IV NAUSEA/VOMITING Last administered on 01/15/17 04:04; Start 01/11/17 at 18:45 Enoxaparin Sodium (Lovenox 100mg Syringe) 90 mg Q24H SQ Last administered on 21:09; Start 01/11/17 at 20:00; Stop 01/15/17 at 11:08; Status DC Propafenone HCl (Rythmol) 75 mg BID PO Last administered on 01/17/17 09:14; Start 01/12/17 at 21:00 Norepinephrine Bitartrate 250 ml @ 0 mls/hr CONT PRN IV SEE I/O RECORD Last administered on 01/16/17 19:57; Start 01/12/17 at 15:45 Info (Anti-Coagulation Monitoring By Pharmacy) 1 each PRN DAILY PRN MC SEE COMMENTS Last administered on 01/16/17 12:58; Start 01/13/17 at 09:00 Magnesium Sulfate/ Dextrose 50 ml @ 25 mls/hr PRN DAILY PRN IV for Mag < 1.7 on am labs; Start 01/13/17 at 10:45 Sodium Chloride 1,000 ml @ 80 mls/hr [id number] IV Last administered on 10:50; Start 01/13/17 at 10:45; Stop 01/14/17 at 19:07; Status DC Sodium Chloride 500 ml @ 0 mls/hr QID PRN IV for MAP < 65 Last administered on 01/14/17 01:15; Start 01/13/17 at 10:45 Sodium Chloride 1,000 ml @ 1,000 mls/hr Q1H PRN IV hypotension; Start 01/14/17 at 09:11; Stop 01/14/17 at 15:10; Status DC Info (PHARMACY MONITORING -- do not chart) 1 each PRN DAILY PRN MC SEE COMMENTS ; Start 01/14/17 at 09:15; Status UNV Piperacillin Sod/ Tazobactam Sod 2.25 gm/Sodium Chloride 50 ml @ 100 mls/hr Q8HRS IV Last administered on 01/17/17 05:01; Start 01/14/17 at 12:30 Micafungin Sodium 100 mg/Dextrose 100 ml @ 100 mls/hr Q24H IV Last administered on 01/16/17 13:42; Start 01/14/17 at 13:00 Vancomycin HCl (Vanco Per Pharmacy) 1 each PRN DAILY PRN MC SEE COMMENTS Last administered on 01/16/17 07:30; Start 01/15/17 at 07:15 Vancomycin HCl 2 gm/Sodium Chloride 500 ml @ 250 mls/hr 1X ONCE IV Last administered on 01/15/17 07:55; Start 01/15/17 at 08:00; Stop 01/15/17 at 09:59 ; Status DC Metronidazole 100 ml @ 100 mls/hr Q8H IV Last administered on 01/16/17 00:03 ; Start 01/15/17 at 08:00; Stop 01/16/17 at 08:02; Status DC Iohexol (Omnipaque 300 Mg/ml) 75 ml 1X ONCE IV ; Start 01/15/17 at 08:00; Stop 01/15/17 at 08:01; Status DC Lidocaine/Sodium Bicarbonate (Buffered Lidocaine 1%) 3 ml 1X ONCE IJ Last administered on 01/15/17 09:00; Start 01/15/17 at 08:30; Stop 01/15/17 at 08:32 ; Status DC Heparin Sodium/ Sodium Chloride 60 unit 1X ONCE IV Last administered on 09:01; Start 01/15/17 at 08:30; Stop 01/15/17 at 08:32; Status DC Heparin Sodium (Porcine) (Heparin Sodium) 3,000 unit 1X ONCE IV Last administered on 01/15/17 20:21; Start 01/15/17 at 21:00; Stop 01/15/17 at 21:01 ; Status DC Heparin Sodium/ Dextrose 500 ml @ 0 mls/hr CONT PRN IV SEE I/O RECORD Last administered on 01/16/17 19:58; Start 01/15/17 at 21:00 Iohexol (Omnipaque 300 Mg/ml) 75 ml 1X ONCE IV Last administered on 01/15/17 12:15; Start 01/15/17 at 12:15; Stop 01/15/17 at 12:16; Status DC Info (Do NOT chart on this entry -- for MONITORING) 1 each PRN DAILY PRN MC SEE COMMENTS; Start 01/15/17 at 12:15; Stop 01/17/17 at 12:14 Vancomycin HCl 1 each 1X ONCE MC Last administered on 01/17/17 05:00; Start at 05:00; Stop 01/17/17 at 05:01; Status DC Info (PHARMACY MONITORING -- do not chart) 1 each PRN DAILY PRN MC SEE COMMENTS ; Start 01/16/17 at 07:45; Status UNV Info (PHARMACY MONITORING -- do not chart) 1 each PRN DAILY PRN MC SEE COMMENTS ; Start 01/16/17 at 07:45; Status UNV Info (PHARMACY MONITORING -- do not chart) 1 each PRN DAILY PRN MC SEE COMMENTS ; Start 01/16/17 at 07:45; Status UNV Sodium Chloride 1,000 ml @ 1,000 mls/hr Q1H PRN IV hypotension; Start 01/16/17 at 07:32; Stop 01/16/17 at 13:31; Status DC Albumin Human 200 ml @ 200 mls/hr 1X PRN PRN IV Hypotension; Start 01/16/17 at 07:45; Stop 01/16/17 at 13:44; Status DC Info (PHARMACY MONITORING -- do not chart) 1 each PRN DAILY PRN MC SEE COMMENTS ; Start 01/16/17 at 07:45; Status UNV Gentamicin Sulfate 1 each ONCE ONCE MC ; Start 01/16/17 at 08:00; Stop at 08:04; Status DC Gentamicin Sulfate 180 mg/ Sodium Chloride 104.5 ml @ 104.5 mls/ hr 1X ONCE IV Last administered on 01/16/17t 11:50; Start 01/16/17 at 09:00; Stop at 09:59; Status DC Lidocaine HCl (Xylocaine 2% Topical 5gm Tube) 1 edwardo 1X ONCE TP ; Start at 14:45; Stop 01/16/17 at 14:53; Status DC Lidocaine HCl (Viscous Lidocaine) 15 ml 1X ONCE MM ; Start 01/16/17 at 14:45; Stop 01/16/17 at 14:53; Status DC Benzocaine (Hurricaine One) 1spray 1X ONCE MM ; Start 01/16/17 at 14:45; Stop 01/16/17 at 14:53; Status DC Ondansetron HCl (Zofran) 4 mg PRN Q6HRS PRN IV NAUSEA/VOMITING; Start 01/17/17 at 07:00; Stop 01/18/17 at 06:59 Fentanyl Citrate (Fentanyl 2ml Vial) 25 mcg PRN Q5MIN PRN IV MILD PAIN; Start 01/17/17 at 07:00; Stop 01/18/17 at 06:59 Fentanyl Citrate (Fentanyl 2ml Vial) 50 mcg PRN Q5MIN PRN IV MODERATE PAIN; Start 01/17/17 at 07:00; Stop 01/18/17 at 06:59 Morphine Sulfate 1 mg PRN Q10MIN PRN IV SEVERE PAIN; Start 01/17/17 at 07:00; Stop 01/18/17 at 06:59 Ringer's Solution 1,000 ml @ 30 mls/hr Q24H IV ; Start 01/17/17 at 07:00; Stop 01/17/17 at 18:59 Lidocaine HCl 2 ml PRN 1X PRN ID PRIOR TO IV START; Start 01/17/17 at 07:00; Stop 01/18/17 at 06:59 Hydromorphone HCl (Dilaudid) 0.5 mg PRN Q10MIN PRN IV SEV PAIN, Second choice; Start 01/17/17 at 07:00; Stop 01/18/17 at 06:59 Prochlorperazine Edisylate (Compazine) 5 mg PACU PRN PRN IV NAUSEA, MRX1; Start 01/17/17 at 07:00; Stop 01/18/17 at 06:59 Active Scripts Active Reported Ferric Citrate 210 Mg Tablet 210 Mg PO Meloxicam 7.5 Mg Tablet 1 Tab PO DAILY Atenolol 50 Mg Tablet 1 Tab PO DAILY Tylenol (Acetaminophen) 325 Mg Tablet 500 Mg PO PRN Q6HRS PRN Aspir 81 (Aspirin) 81 Mg Tablet.dr 1 Tab PO DAILY Fish Oil 1,000 Mg Capsule (Finley-3 Fatty Acids/Fish Oil) 1 Each Capsule 1 Each PO BID Vitamin D2 (Ergocalciferol (Vitamin D2)) 50,000 Unit Capsule 50,000 Unit PO WEEKLY Allopurinol 100 Mg Tablet 1 Tab PO DAILY Nephro-Ray Tablet (Folic Acid/Vitamin B Comp W-C) 0.8 Mg Tablet 1 Tab PO HS Gabapentin 100 Mg Capsule 100 Mg PO BID Omeprazole 20 Mg Capsule.dr 20 Mg PO DAILY Calcium Acetate 667 Mg Capsule 2,001 Mg PO TIDWMEALS Vitals/I & O Vital Sign - Last 24 Hours 01/16/17 01/16/17 01/16/17 01/16/17 10:00 11:00 12:00 12:00 Pulse 100 110 120 Resp 12 12 12 B/P (MAP) 114/41 (65) 95/52 (66) 124/54 (77) Pulse Ox 100 100 100 O2 Delivery Nasal Cannula Nasal Cannula Nasal Cannula Nasal Cannula O2 Flow Rate 2.0 2.0 2.0 2.0 01/16/17 01/16/17 01/16/17 01/16/17 13:00 14:00 15:00 16:00 Temp 97.5 97.5 Pulse 90 100 100 100 Resp 12 18 12 16 B/P (MAP) 97/44 (61) 112/46 (68) 91/42 (58) 103/38 (59) Pulse Ox 100 99 92 98 O2 Delivery Nasal Cannula Nasal Cannula Nasal Cannula Nasal Cannula O2 Flow Rate 2.0 2.0 2.0 2.0 01/16/17 01/16/17 01/16/17 01/16/17 16:00 17:00 18:00 19:00 Temp 98.2 98.2 Pulse 95 93 100 Resp 18 B/P (MAP) 107/21 (49) 105/28 (53) 106/46 (66) Pulse Ox 99 98 99 O2 Delivery Nasal Cannula Nasal Cannula Nasal Cannula Nasal Cannula O2 Flow Rate 2.0 2.0 2.0 01/16/17 01/16/17 01/16/17 01/16/17 20:00 20:00 21:00 21:09 Pulse 102 102 102 Resp 18 18 B/P (MAP) 116/46 (69) 109/46 (67) 116/46 Pulse Ox 99 97 O2 Delivery Nasal Cannula Nasal Cannula Nasal Cannula O2 Flow Rate 2.0 2.0 2.0 01/16/17 01/16/17 01/17/17 01/17/17 22:00 23:00 00:00 00:01 Temp 98.4 98.4 Pulse 111 88 100 Resp 18 18 18 B/P (MAP) 98/49 (65) 109/49 (69) 104/49 (67) Pulse Ox 99 100 100 O2 Delivery Nasal Cannula Nasal Cannula Nasal Cannula Nasal Cannula O2 Flow Rate 2.0 2.0 2.0 2.0 01/17/17 01/17/17 01/17/17 01/17/17 01:00 02:00 03:00 04:00 Temp 98.0 98.0 Pulse 69 100 102 111 Resp 16 16 16 16 B/P (MAP) 100/49 (66) 99/49 (66) 100/49 (66) 88/49 (62) Pulse Ox 100 100 98 99 O2 Delivery Nasal Cannula Nasal Cannula Nasal Cannula Nasal Cannula O2 Flow Rate 2.0 2.0 2.0 2.0 01/17/17 01/17/17 01/17/17 01/17/17 04:00 05:00 06:00 07:00 Pulse 103 82 86 Resp 18 18 16 B/P (MAP) 107/57 (74) 90/52 (65) 89/44 (59) Pulse Ox 98 98 99 O2 Delivery Nasal Cannula Nasal Cannula Nasal Cannula Nasal Cannula O2 Flow Rate 2.0 2.0 2.0 2.0 01/17/17 01/17/17 01/17/17 08:00 09:00 09:14 Temp 97.6 97.6 Pulse 104 103 80 Resp 24 16 B/P (MAP) 103/43 (63) 102/45 (64) 102/45 Pulse Ox 100 99 O2 Delivery Nasal Cannula Nasal Cannula O2 Flow Rate 2.0 2.0 INEZ GRADY MD Jan 17, 2017 09:37
--- NOTE | 2017-01-17 09:43 | PDOC ---
Infectious Disease Note Subjective Subjective Feeling ok this morning ROS ROS GEN: Denies fevers, chills, sweats CV: Denies chest pain RESP: Denies shortness of air, cough GI: Denies n/v/d Vital Sign Vital Signs Vital Signs Date Time Temp Pulse Resp B/P (MAP) Pulse Ox O2 Delivery O2 Flow Rate FiO2 01/17/17 09:14 80 102/45 01/17/17 08:00 97.6 24 100 Nasal Cannula 2.0 97.6 Physical Exam PHYSICAL EXAM GENERAL: Propped up in bed, NAD HEENT: PERRL, normal conjunctivae, OP/OC pink, + dentures NECK: Supple LUNGS: Clear HEART: S1S2,no murmur appreciated, irregular, pacemaker ABD: Soft, NT EXT: No edema, no cyanosis. LUE AV fistula SECURITY COMPLIANCE SPECIALIST: Alert, 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, no focal neurologic deficit SKIN: No rash, no peripheral stigmata RIJ. (01/15) clean Labs Lab Laboratory Tests Test 01/16/17 13:50 01/17/17 05:00 Heparin Anti-Xa Act, Unfractionated 0.43 IU/mL (0.30-0.70) 0.31 IU/mL (0.30-0.70) White Blood Count 18.4 x10^3/uL (4.0-11.0) Red Blood Count 2.81 x10^6/uL (3.50-5.40) Hemoglobin 9.8 g/dL (12.0-15.5) Hematocrit 30.9 % (36.0-47.0) Mean Corpuscular Volume 110 fL (79-100) Mean Corpuscular Hemoglobin 35 pg (25-35) Mean Corpuscular Hemoglobin Concent 32 g/dL (31-37) Red Cell Distribution Width 14.6 % (11.5-14.5) Platelet Count 63 x10^3/uL (140-400) Neutrophils (%) (Auto) 79 % (31-73) Lymphocytes (%) (Auto) 11 % (24-48) Monocytes (%) (Auto) 8 % (0-9) Eosinophils (%) (Auto) 2 % (0-3) Basophils (%) (Auto) 1 % (0-3) Neutrophils # (Auto) 14.6 x10^3uL (1.8-7.7) Lymphocytes # (Auto) 2.0 x10^3/uL (1.0-4.8) Monocytes # (Auto) 1.4 x10^3/uL (0.0-1.1) Eosinophils # (Auto) 0.3 x10^3/uL (0.0-0.7) Basophils # (Auto) 0.1 x10^3/uL (0.0-0.2) Segmented Neutrophils % 84 % (35-66) Band Neutrophils % 2 % (0-9) Lymphocytes % 3 % (24-48) Monocytes % 8 % (0-10) Eosinophils % 3 % (0-5) Platelet Estimate Decreased (ADEQUATE) Polychromasia Slight Anisocytosis Slight Sodium Level 137 mmol/L (136-145) Potassium Level 4.4 mmol/L (3.5-5.1) Chloride Level 98 mmol/L (98-107) Carbon Dioxide Level 30 mmol/L (21-32) Anion Gap 9 (6-14) Blood Urea Nitrogen 25 mg/dL (7-20) Creatinine 3.9 mg/dL (0.6-1.0) Estimated GFR (Cockcroft-Gault) 11.3 BUN/Creatinine Ratio 6 (6-20) Glucose Level 110 mg/dL (70-99) Calcium Level 8.5 mg/dL (8.5-10.1) Phosphorus Level 4.1 mg/dL (2.6-4.7) Magnesium Level 2.0 mg/dL (1.8-2.4) Total Bilirubin 1.2 mg/dL (0.2-1.0) Aspartate Amino Transf (AST/SGOT) 35 U/L (15-37) Alanine Aminotransferase (ALT/SGPT) 27 U/L (14-59) Alkaline Phosphatase 118 U/L (46-116) Total Protein 6.2 g/dL (6.4-8.2) Albumin 2.8 g/dL (3.4-5.0) Albumin/Globulin Ratio 0.8 (1.0-1.7) Random Vancomycin Level 13.8 mcg/mL 01/16. TTE <Conclusion> Left ventricle systolic function is normal. Cannot exclude aortic valvular vegetation. there is a mass present in the noncoronary cusp that may be a vegetation. Doppler and Color Flow revealed moderate aortic regurgitation. Doppler and Color Flow revealed moderate mitral regurgitation. Doppler and Color Flow revealed no tricuspid valve regurgitation noted. The pulmonic valve is not well visualized. There is no evidence of significant pericardial effusion. US abd Impression: 1. Post cholecystectomy. 2. The liver has a nodular contour suggestive of cirrhosis. 3. The common bile duct is dilated measuring 1.1 cm in diameter. No intrahepatic biliary ductal dilatation is seen. 4. 5.6 cm rounded mass is seen involving the superior aspect of the spleen which is felt to most likely represent a hemangioma as outlined above. Micro 01/16. BLOOD CULTURE Preliminary NO GROWTH AFTER 1 DAY 01/14. BLOOD CULT RESULT 1 Final Enterococcus faecalis Recovered from aerobic and anaerobic bottles. GROWTH IN 1 OF 1 SET Antibiotic RSLT#1 Ciprofloxacin S Levofloxacin S Penicillin S Tetracycline R Vancomycin S Objective Assessment Enterococcus sepsis, 01/14. TTE AV + mass on noncoronary cusp. MARY JANE pending -Repeat BC NGTD, 01/16 Hypotension, on Levophed gtt Abnormal splenic lesion CT- c/w hemangioma; appreciate surgery's input Leukocytosis, trending down Encephalopathy, better Generalized aches - no history of PMR or fibromyalgia per . no joint inflammation Afib RVR + MRSA screen Recent UTI H/o C-diff Thrombocytopenia CKD/HD Plan Plan of Care Vanc, Zosyn & Micafungin Dose Gent times one, 01/16 Monitor WBC, Temp f/u BC Await MARY JANE today D/w Critically ill Attending Co-Sign The patient was seen and interviewed as well as examined at the bedside. The chart was reviewed. The case was discussed. Agree with the plan of care. d/w daughter in detail change antibiotics to amp and gent ROBERTO BEAVERS APRN Jan 17, 2017 09:43 YENIFER ACOSTA MD Jan 17, 2017 14:21
[2017-01-17] MEDS ORDERED: PHENYLEPHRINE in 0.9% NACL PF 1 MG/10 ML DISP.SYRIN. IV ONE (10:24)
[2017-01-17] MEDS ORDERED: PROPOFOL 20 ML IV ONE (10:24)
[2017-01-17] MEDS: VANCOMYCIN PER PHARMACY MC PRN (11:01)
--- NOTE | 2017-01-17 12:29 | PDOC ---
SUBJECTIVE ROS ESRD Doing a littl better mentally today - Still PO intake remains Poor CVS: no Orthopnea, no CP RESP: no SOB, no KWONG GI: no Nausea, no Vomiting : no Dysuria, no Urgency OBJECTIVE Vital Signs Vital Signs Date Time Temp Pulse Resp B/P (MAP) Pulse Ox O2 Delivery O2 Flow Rate FiO2 01/17/17 11:00 70 16 83/40 (54) 100 Nasal Cannula 2.0 01/17/17 08:00 97.6 97.6 PHYSICAL EXAM Physical Exam GEN: Awake, Oriented x 1-2, In no distress; Ill appearing EYES: Vision Unchanged, Conjunctiva Normal EN: No EN Drainage, Mucous Membranes moist NECK: no JVD, min JVP, Supple, no Thyromegaly CVS: S1S2, + Murmur, No Gallop, No Rub,no Edema RESP: no Rales, no Rhonchi,no Acc. Muscle Use GI: BS + ve, NO Bruit, Non Tender, Non Distended : no CVA tenderness, no Suprapubic Tenderness DIAGNOSIS/ASSESSMENT Assessment & Plan ESRD: Current fluid and E-lyte status does not necessitate emergent need for dialysis. Will re-evaluate for dialysis in the am and continue on TTSAt schedule. Anorexia - doubt that this is a Uremic symptom; Start/ attempt TF via dobhoff prior to going to TPN ANEMIA; Aranesp as ordered, Transfuse with next HD as needed HypoTN: (Sepsis) Current meds reviewed. See orders for changes. Remains on Pressors for now BONE & MINERAL: follow phos and alter binder regimen as needed AMS now most likely due to Sev Purulent Cystitis vs ? with SEpsis asso with Enterococcal ALEXUS Nutirtion - Start/ attempt TF via dobhoff prior to going to TPN ? early DIC - MS is better - ABx per Dr Howell ALEXUS - noted on MARY JANE - Abx per Dr Howell Discussed Plan of Care with family () at bedside COMMENT/RELEVANT DATA Meds Current Medications Medications (Trade) Dose Ordered Sig/Colleen Start Time Stop Time Status Last Admin Dose Admin Acetaminophen (Tylenol) 500 mg 1X PRN PRN 01/11/17 09:00 01/12/17 08:59 DC Albumin Human 200 ml @ 200 mls/hr 1X PRN PRN 01/16/17 07:45 01/16/17 13:44 DC Allopurinol (Zyloprim) 100 mg DAILY 01/10/17 14:30 01/17/17 08:41 100 MG Aspirin (Children'S Aspirin) 324 mg 1X ONCE 01/09/17 07:45 01/09/17 07:46 DC 01/09/17 08:15 324 MG Aspirin (Ecotrin) 81 mg DAILY 01/10/17 14:30 01/17/17 08:41 81 MG Atenolol (Tenormin) 50 mg DAILY 01/10/17 14:30 01/12/17 14:50 DC 01/12/17 09:09 50 MG Benzocaine (Hurricaine One) 1spray 1X ONCE 01/16/17 14:45 01/16/17 14:53 DC Calcium Acetate (Phoslo) 2,001 mg TIDWMEALS 01/10/17 17:00 01/17/17 08:41 2,001 MG Darbepoetin Jerome (Aranesp) 60 mcg WEEKLYHS 01/09/17 21:00 01/16/17 21:10 60 MCG Digoxin (Lanoxin) 250 mcg 1X ONCE 01/11/17 18:45 01/11/17 18:46 DC 01/11/17 19:02 250 MCG Diltiazem HCl (Cardizem) 10 mg 1X ONCE 01/09/17 07:30 01/09/17 07:31 DC 01/09/17 07:39 10 MG Diltiazem HCl 125 mg/Dextrose 125 ml @ 0 mls/hr CONT PRN 01/09/17 07:30 01/09/17 07:40 5 MLS/HR Diphenhydramine HCl (Benadryl) 25 mg 1X PRN PRN 01/11/17 09:00 01/12/17 08:59 DC 01/11/17 13:30 25 MG Enoxaparin Sodium (Lovenox 100mg Syringe) 90 mg Q24H 01/11/17 20:00 01/15/17 11:08 DC 01/14/17 21:09 90 MG Fentanyl Citrate (Fentanyl 2ml Vial) 50 mcg PRN Q5MIN PRN 01/17/17 07:00 01/18/17 06:59 Fentanyl Citrate (Fentanyl 5ml Vial) 50 mcg 1X ONCE 01/11/17 13:45 01/11/17 13:46 DC 01/11/17 13:51 50 MCG Fish Oil (Fish Oil) 1,000 mg DAILY 01/11/17 09:00 01/16/17 09:03 1,000 MG Gabapentin (Neurontin) 100 mg BID 01/10/17 14:30 01/17/17 08:41 100 MG Gentamicin Sulfate 180 mg/ Sodium Chloride 104.5 ml @ 104.5 mls/ hr 1X ONCE 01/16/17 09:00 01/16/17 09:59 DC 01/16/17 11:50 104.5 MLS/HR Gentamicin Sulfate 1 each ONCE ONCE 01/16/17 08:00 01/16/17 08:04 DC Heparin Sodium (Porcine) (Heparin Sodium) 3,000 unit 1X ONCE 01/15/17 21:00 01/15/17 21:01 DC 01/15/17 20:21 3,000 UNIT Heparin Sodium/ Dextrose 500 ml @ 0 mls/hr CONT PRN 01/15/17 21:00 01/16/17 19:58 20 MLS/HR Heparin Sodium/ Sodium Chloride 60 unit 1X ONCE 01/15/17 08:30 01/15/17 08:32 DC 01/15/17 09:01 60 UNIT Hydromorphone HCl (Dilaudid) 0.5 mg PRN Q10MIN PRN 01/17/17 07:00 01/18/17 06:59 Info (Anti-Coagulation Monitoring By Pharmacy) 1 each PRN DAILY PRN 01/13/17 09:00 01/16/17 12:58 1 EACH Info (Do NOT chart on this entry -- for MONITORING) 1 each PRN DAILY PRN 01/15/17 12:15 01/17/17 12:14 Info (PHARMACY MONITORING -- do not chart) 1 each PRN DAILY PRN 01/16/17 07:45 UNV Iohexol (Omnipaque 300 Mg/ml) 75 ml 1X ONCE 01/15/17 12:15 01/15/17 12:16 DC 01/15/17 12:15 75 ML Iohexol (Omnipaque 350 Mg/ml) 81 ml 1X ONCE 01/11/17 13:45 01/11/17 13:46 DC 01/11/17 13:51 81 ML Lidocaine HCl 2 ml PRN 1X PRN 01/17/17 07:00 01/18/17 06:59 Lidocaine HCl (Viscous Lidocaine) 15 ml 1X ONCE 01/16/17 14:45 01/16/17 14:53 DC Lidocaine HCl (Xylocaine 2% Topical 5gm Tube) 1 edwardo 1X ONCE 01/16/17 14:45 01/16/17 14:53 DC Lidocaine HCl (Xylocaine-Mpf 1% Vial) 2 ml 1X ONCE 01/11/17 09:00 01/11/17 09:02 DC 01/11/17 10:01 2 ML Lidocaine/Sodium Bicarbonate (Buffered Lidocaine 1%) 3 ml 1X ONCE 01/15/17 08:30 01/15/17 08:32 DC 01/15/17 09:00 3 ML Magnesium Sulfate/ Dextrose 50 ml @ 25 mls/hr PRN DAILY PRN 01/13/17 10:45 Meloxicam (Mobic) 7.5 mg DAILY 01/10/17 14:30 01/17/17 08:43 7.5 MG Metronidazole 100 ml @ 100 mls/hr Q8H 01/15/17 08:00 01/16/17 08:02 DC 01/16/17 00:03 100 MLS/HR Micafungin Sodium 100 mg/Dextrose 100 ml @ 100 mls/hr Q24H 01/14/17 13:00 01/16/17 13:42 100 MLS/HR Midazolam HCl (Versed) 1 mg 1X ONCE 01/11/17 13:45 01/11/17 13:46 DC 01/11/17 13:51 1 MG Morphine Sulfate 1 mg PRN Q10MIN PRN 01/17/17 07:00 01/18/17 06:59 Nitroglycerin (Nitrostat) 0.4 mg PRN Q5MIN PRN 01/11/17 12:15 01/11/17 12:35 0.4 MG Norepinephrine Bitartrate 250 ml @ 0 mls/hr CONT PRN 01/12/17 15:45 01/16/17 19:57 11.25 MLS/HR Ondansetron HCl (Zofran) 4 mg PRN Q6HRS PRN 01/17/17 07:00 01/18/17 06:59 Oxycodone/ Acetaminophen (Percocet 5/325) 1 tab PRN Q4HRS PRN 01/09/17 18:00 01/11/17 08:31 1 TAB Pantoprazole Sodium (Protonix) 40 mg DAILYAC 01/10/17 14:30 01/17/17 08:41 40 MG Phenylephrine HCl 1 mg STK-MED ONCE 01/17/17 10:24 01/17/17 10:25 DC Piperacillin Sod/ Tazobactam Sod 2.25 gm/Sodium Chloride 50 ml @ 100 mls/hr Q8HRS 01/14/17 12:30 01/17/17 05:01 100 MLS/HR Prochlorperazine Edisylate (Compazine) 5 mg PACU PRN PRN 01/17/17 07:00 01/18/17 06:59 Propafenone HCl (Rythmol) 75 mg BID 01/12/17 21:00 01/17/17 09:14 75 MG Propofol 20 ml @ As Directed STK-MED ONCE 01/17/17 10:24 01/17/17 10:25 DC Ringer's Solution 1,000 ml @ 30 mls/hr Q24H 01/17/17 07:00 01/17/17 18:59 Sodium Chloride 1,000 ml @ 1,000 mls/hr Q1H PRN 01/16/17 07:32 01/16/17 13:31 DC Vancomycin HCl (Vanco Per Pharmacy) 1 each PRN DAILY PRN 01/15/17 07:15 01/17/17 11:01 1 EACH Vancomycin HCl 500 mg/Sodium Chloride 100 ml @ 100 mls/hr QTUTHSA 01/18/17 16:00 Vancomycin HCl 2 gm/Sodium Chloride 500 ml @ 250 mls/hr 1X ONCE 01/15/17 08:00 01/15/17 09:59 DC 01/15/17 07:55 250 MLS/HR Vitamin B Complex/ Vitamin C (Tsering-Ray) 1 tab HS 01/10/17 21:00 01/16/17 21:10 1 TAB Lab Laboratory Tests Test 01/16/17 13:50 01/17/17 05:00 Heparin Anti-Xa Act, Unfractionated 0.43 IU/mL (0.30-0.70) 0.31 IU/mL (0.30-0.70) White Blood Count 18.4 x10^3/uL (4.0-11.0) Red Blood Count 2.81 x10^6/uL (3.50-5.40) Hemoglobin 9.8 g/dL (12.0-15.5) Hematocrit 30.9 % (36.0-47.0) Mean Corpuscular Volume 110 fL (79-100) Mean Corpuscular Hemoglobin 35 pg (25-35) Mean Corpuscular Hemoglobin Concent 32 g/dL (31-37) Red Cell Distribution Width 14.6 % (11.5-14.5) Platelet Count 63 x10^3/uL (140-400) Neutrophils (%) (Auto) 79 % (31-73) Lymphocytes (%) (Auto) 11 % (24-48) Monocytes (%) (Auto) 8 % (0-9) Eosinophils (%) (Auto) 2 % (0-3) Basophils (%) (Auto) 1 % (0-3) Neutrophils # (Auto) 14.6 x10^3uL (1.8-7.7) Lymphocytes # (Auto) 2.0 x10^3/uL (1.0-4.8) Monocytes # (Auto) 1.4 x10^3/uL (0.0-1.1) Eosinophils # (Auto) 0.3 x10^3/uL (0.0-0.7) Basophils # (Auto) 0.1 x10^3/uL (0.0-0.2) Segmented Neutrophils % 84 % (35-66) Band Neutrophils % 2 % (0-9) Lymphocytes % 3 % (24-48) Monocytes % 8 % (0-10) Eosinophils % 3 % (0-5) Platelet Estimate Decreased (ADEQUATE) Polychromasia Slight Anisocytosis Slight Sodium Level 137 mmol/L (136-145) Potassium Level 4.4 mmol/L (3.5-5.1) Chloride Level 98 mmol/L (98-107) Carbon Dioxide Level 30 mmol/L (21-32) Anion Gap 9 (6-14) Blood Urea Nitrogen 25 mg/dL (7-20) Creatinine 3.9 mg/dL (0.6-1.0) Estimated GFR (Cockcroft-Gault) 11.3 BUN/Creatinine Ratio 6 (6-20) Glucose Level 110 mg/dL (70-99) Calcium Level 8.5 mg/dL (8.5-10.1) Phosphorus Level 4.1 mg/dL (2.6-4.7) Magnesium Level 2.0 mg/dL (1.8-2.4) Total Bilirubin 1.2 mg/dL (0.2-1.0) Aspartate Amino Transf (AST/SGOT) 35 U/L (15-37) Alanine Aminotransferase (ALT/SGPT) 27 U/L (14-59) Alkaline Phosphatase 118 U/L (46-116) Total Protein 6.2 g/dL (6.4-8.2) Albumin 2.8 g/dL (3.4-5.0) Albumin/Globulin Ratio 0.8 (1.0-1.7) Random Vancomycin Level 13.8 mcg/mL FLORESITA ACOSTA MD Jan 17, 2017 12:29
--- NOTE | 2017-01-17 14:14 | CARD ---
APPROVED REPORT EXAM: Two-dimensional and M-mode echocardiogram with Doppler and color Doppler. INDICATION Atrial Fibrillation Infection: Aortic valve vegetations Reason For Test : Rule out endocarditis. PROCEDURE After obtaining informed consent, patient underwent transesophageal echo in the ICU. Type of Sedation : Conscious Sedation Sedation was provided by anesthesiologist, see EMR for medications administered. Transesophageal probe was inserted and advanced into esophagus by Maximo Jean MD. The MARY JANE was performed without complications. Throughout the procedure, the blood pressure, pulse oximetry, cardiac rhythm, and rate were monitored . The patient tolerated the procedure without adverse effects. Recovery from conscious sedation was une ventful and vital signs were stable. LEFT VENTRICLE The left ventricle is normal size. There is normal left ventricular wall thickness. The left ventricu lar systolic function is normal and the ejection fraction is within normal range. Visually, the left ventricular ejection fraction is estimated at 65%. There is normal LV segmental wall motion. RIGHT VENTRICLE The right ventricle is normal size. There is normal right ventricular wall thickness. The right ventr icular systolic function is normal. AORTIC VALVE The aortic valve is mildly sclerotic. The aortic valve is trileaflet. Doppler and Color Flow revealed moderate aortic regurgitation. There is no significant aortic valvular stenosis. A 2 x 1 x 2 cm. hyp erechoic mass is noted attached to the non-coronary cusp of the aortic valve consistent with a vegeta tion. MITRAL VALVE The mitral valve leaflets are thickened and calcified. There is no evidence of mitral valve prolapse. A small, mobile vegetation is noted superior and medially to the mitral valve. There is no mitral va lve stenosis. Doppler and Color Flow revealed moderate mitral regurgitation. TRICUSPID VALVE Insufficient tricuspid regurgitation, unable to determine pulmonary artery pressure at exam time. PULMONIC VALVE The pulmonic valve is not visualized, unable to assess. GREAT VESSELS The aortic root is normal in size. Critical Notification Critical Value: No <Conclusion> The left ventricular systolic function is normal and the ejection fraction is within normal range. Visually, the left ventricular ejection fraction is estimated at 65%. The aortic valve is mildly sclerotic. The aortic valve is trileaflet. Doppler and Color Flow revealed moderate aortic regurgitation. A 2 x 1 x 2 cm. hyperechoic mass is noted attached to the non-coronary cusp of the aortic valve consi stent with a vegetation. There is no evidence of mitral valve prolapse. A small, mobile vegetation is noted superior and medially to the mitral valve. The mitral valve leaflets are thickened and calcified. Doppler and Color Flow revealed moderate mitral regurgitation.
[2017-01-17] MEDS ORDERED: GENTAMICIN SULFATE 270 MG in IV NORMAL SALINE 100ML 100 ML IV SCH (14:15)
[2017-01-17] MEDS: AMPICILLIN SODIUM 2 GM in IV NORMAL SALINE 100ML 100 ML IV SCH ×2 (15:17→21:46)
--- NOTE | 2017-01-17 18:40 | PDOC ---
PROGRESS NOTES Assessment Assessment Metabolic encephalopathy. Confusion. Generalized weakness. New onset Afib. CHF Renal failure on dialysis. DM HTN Anemia. Gout Obesity RECOMMENDATIONS/PLAN: Treat medical and cardiac disease. OT/PT Discussed with her again at bedside in ICU on 01/17/17. HISTORY OF THE PRESENT ILLNESS: 71-y-old female patient with above medical and cardiac diseases was noted MS changes, confusional episodes and generalized weakness, so Neurology was requested for consultation. no focalized sensory of motor deficits noted. Her condition is improving on 01/16/17. Past Medical History Cardiovascular: HTN, Other Heme/Onc: Anemia NOS Rheumatologic: Gout Renal/: Chronic renal failure Endocrine: Diabetes, Hyperparathyroidism, Other Past Surgical History Pacemaker, Cholecystectomy, Hysterectomy, Other Family History No Significant Social History ALCOHOL: none Drugs: None ALLERGY: Reviewed. MEDICATIONS: Refer to MAR REVIEW OF SYSTEMS: Constitutional: No malnutrition, weight loss, cachexia. Head: No recent traumatic brain or head injury. Skin: No edema, or rash. Ear: No infection. Eyes: No vision loss or color blindness. Nose: No bleeding or purulent discharges. Hearing: Hearing decrease. Neck: No injury. Breast: No history of cancer, masses,or discharges. Cardiac: New onset AFib, Pacemaker Placement, HTN. Pulmonary: No COPD. GI: No GI ulcer, GI bleeding. Urinary/genital: UTI. Endocrinologic: Diabetes Mellitus, obesity. Skeletomuscular: Generalized weakness. Neurological: see HP. Psychiatric: Denies drug use/abuse. Otherwise, not [id number] review of systems. PHYSICAL EXAMINATION: General appearance is in subacute distress. HEENT: Normocephalic and nontraumatic. Eyes, nose, ears, and throat are unremarkable. Neck is supple. No lymphadenopathy. No crepitus. Cardiovascular: S1, S2, irregular rate and rhythm. Pulmonary: Clear to auscultation bilaterally. Abdomen: Bowel sounds are positive. Extremities: No rash, lesions, or edema. No restriction of range of motion NEUROLOGICAL EXAMINATION: Awake. Not fully oriented to time, but knows place and person. PERRL. EOMI, but slow. CN: no acute focal findings. Muscle tone: within normal. Muscle strength: 4+ UE, 3+ LE DTR: 1-2 Plantar reflex: Flexor response bilaterally Gait: not examined in bed. Sensory exam: no abnormal findings. Not able to access cerebellar signs this time. F-T-N test not performed due to not follow commands. Objective Objective Vital Signs Date Time Temp Pulse Resp B/P (MAP) Pulse Ox O2 Delivery O2 Flow Rate FiO2 01/17/17 18:00 93 20 99/46 (63) 99 Nasal Cannula 2.0 01/17/17 16:00 97.8 97.8 Intake and Output 01/18/17 07:00 Intake Total 888 ml Output Total 0 ml Balance 888 ml Intake Oral 200 ml IV Total 688 ml Output Urine Total 0 ml # Bowel Movements 1 Vitals Signs Vitals VS - Last 72 Hours, by Label Date Time Temp Pulse Resp B/P (MAP) Pulse Ox O2 Delivery O2 Flow Rate FiO2 01/17/17 18:00 93 20 99/46 (63) 99 Nasal Cannula 2.0 01/17/17 17:00 86 20 107/65 (79) 99 Nasal Cannula 2.0 01/17/17 16:00 97.8 94 20 113/52 (72) 100 Nasal Cannula 2.0 97.8 01/17/17 15:00 106 22 79/46 (57) 100 Nasal Cannula 2.0 01/17/17 14:00 86 19 92/32 (52) 99 Nasal Cannula 2.0 01/17/17 13:00 99 19 106/41 (62) 99 Nasal Cannula 2.0 01/17/17 12:00 97.6 79 20 96/52 (67) 97 Nasal Cannula 2.0 97.6 01/17/17 11:00 70 16 83/40 (54) 100 Nasal Cannula 2.0 01/17/17 10:00 106 14 99/43 (61) 100 Nasal Cannula 2.0 01/17/17 09:14 80 102/45 01/17/17 09:00 103 16 102/45 (64) 99 Nasal Cannula 2.0 01/17/17 08:00 Nasal Cannula 2.0 01/17/17 08:00 97.6 104 24 103/43 (63) 100 Nasal Cannula 2.0 97.6 01/17/17 07:00 86 16 89/44 (59) 99 Nasal Cannula 2.0 01/17/17 06:00 82 18 90/52 (65) 98 Nasal Cannula 2.0 01/17/17 05:00 103 18 107/57 (74) 98 Nasal Cannula 2.0 01/17/17 04:00 Nasal Cannula 2.0 01/17/17 04:00 98.0 111 16 88/49 (62) 99 Nasal Cannula 2.0 98.0 01/17/17 03:00 102 16 100/49 (66) 98 Nasal Cannula 2.0 01/17/17 02:00 100 16 99/49 (66) 100 Nasal Cannula 2.0 01/17/17 01:00 69 16 100/49 (66) 100 Nasal Cannula 2.0 01/17/17 00:01 98.4 100 18 104/49 (67) 100 Nasal Cannula 2.0 98.4 01/17/17 00:00 Nasal Cannula 2.0 01/16/17 23:00 88 18 109/49 (69) 100 Nasal Cannula 2.0 01/16/17 22:00 111 18 98/49 (65) 99 Nasal Cannula 2.0 01/16/17 21:09 102 116/46 01/16/17 21:00 102 18 109/46 (67) 97 Nasal Cannula 2.0 01/16/17 20:00 102 18 116/46 (69) 99 Nasal Cannula 2.0 01/16/17 20:00 Nasal Cannula 2.0 01/16/17 19:00 98.2 100 106/46 (66) 99 Nasal Cannula 2.0 98.2 01/16/17 18:00 93 105/28 (53) 98 Nasal Cannula 2.0 01/16/17 17:00 95 18 107/21 (49) 99 Nasal Cannula 01/16/17 16:00 Nasal Cannula 2.0 01/16/17 16:00 97.5 100 16 103/38 (59) 98 Nasal Cannula 2.0 97.5 01/16/17 15:00 100 12 91/42 (58) 92 Nasal Cannula 2.0 01/16/17 14:00 100 18 112/46 (68) 99 Nasal Cannula 2.0 01/16/17 13:00 90 12 97/44 (61) 100 Nasal Cannula 2.0 01/16/17 12:00 Nasal Cannula 2.0 01/16/17 12:00 120 12 124/54 (77) 100 Nasal Cannula 2.0 01/16/17 11:00 110 12 95/52 (66) 100 Nasal Cannula 2.0 01/16/17 10:00 100 12 114/41 (65) 100 Nasal Cannula 2.0 01/16/17 09:00 110 18 125/50 (75) 99 Nasal Cannula 2.0 01/16/17 08:00 Nasal Cannula 2.0 Laboratory Laboratory Laboratory Tests Test 01/17/17 05:00 01/17/17 13:09 White Blood Count 18.4 x10^3/uL (4.0-11.0) Red Blood Count 2.81 x10^6/uL (3.50-5.40) Hemoglobin 9.8 g/dL (12.0-15.5) Hematocrit 30.9 % (36.0-47.0) Mean Corpuscular Volume 110 fL (79-100) Mean Corpuscular Hemoglobin 35 pg (25-35) Mean Corpuscular Hemoglobin Concent 32 g/dL (31-37) Red Cell Distribution Width 14.6 % (11.5-14.5) Platelet Count 63 x10^3/uL (140-400) Neutrophils (%) (Auto) 79 % (31-73) Lymphocytes (%) (Auto) 11 % (24-48) Monocytes (%) (Auto) 8 % (0-9) Eosinophils (%) (Auto) 2 % (0-3) Basophils (%) (Auto) 1 % (0-3) Neutrophils # (Auto) 14.6 x10^3uL (1.8-7.7) Lymphocytes # (Auto) 2.0 x10^3/uL (1.0-4.8) Monocytes # (Auto) 1.4 x10^3/uL (0.0-1.1) Eosinophils # (Auto) 0.3 x10^3/uL (0.0-0.7) Basophils # (Auto) 0.1 x10^3/uL (0.0-0.2) Segmented Neutrophils % 84 % (35-66) Band Neutrophils % 2 % (0-9) Lymphocytes % 3 % (24-48) Monocytes % 8 % (0-10) Eosinophils % 3 % (0-5) Platelet Estimate Decreased (ADEQUATE) Polychromasia Slight Anisocytosis Slight Heparin Anti-Xa Act, Unfractionated 0.31 IU/mL (0.30-0.70) Sodium Level 137 mmol/L (136-145) Potassium Level 4.4 mmol/L (3.5-5.1) Chloride Level 98 mmol/L (98-107) Carbon Dioxide Level 30 mmol/L (21-32) Anion Gap 9 (6-14) Blood Urea Nitrogen 25 mg/dL (7-20) Creatinine 3.9 mg/dL (0.6-1.0) Estimated GFR (Cockcroft-Gault) 11.3 BUN/Creatinine Ratio 6 (6-20) Glucose Level 110 mg/dL (70-99) Calcium Level 8.5 mg/dL (8.5-10.1) Phosphorus Level 4.1 mg/dL (2.6-4.7) Magnesium Level 2.0 mg/dL (1.8-2.4) Total Bilirubin 1.2 mg/dL (0.2-1.0) Aspartate Amino Transf (AST/SGOT) 35 U/L (15-37) Alanine Aminotransferase (ALT/SGPT) 27 U/L (14-59) Alkaline Phosphatase 118 U/L (46-116) Total Protein 6.2 g/dL (6.4-8.2) Albumin 2.8 g/dL (3.4-5.0) Albumin/Globulin Ratio 0.8 (1.0-1.7) Random Vancomycin Level 13.8 mcg/mL Glucose (Fingerstick) 125 mg/dL (70-99) Microbiology 01/16/17 Blood Culture - Preliminary, Resulted NO GROWTH AFTER 1 DAY Medication Medications Current Medications Ampicillin Sodium 2 gm/Sodium Chloride 100 ml @ 200 mls/hr Q8HRS IV Last administered on 01/17/17t 15:17; Start 01/17/17 at 15:00 Fentanyl Citrate (Fentanyl 2ml Vial) 25 mcg PRN Q5MIN PRN IV MILD PAIN; Start 01/17/17 at 07:00; Stop 01/18/17 at 06:59 Fentanyl Citrate (Fentanyl 2ml Vial) 50 mcg PRN Q5MIN PRN IV MODERATE PAIN; Start 01/17/17 at 07:00; Stop 01/18/17 at 06:59 Gentamicin Sulfate 270 mg/ Sodium Chloride 106.75 ml @ 106.75 mls/hr Q24H IV ; Start 01/17/17 at 14:15; Status UNV Hydromorphone HCl (Dilaudid) 0.5 mg PRN Q10MIN PRN IV SEV PAIN, Second choice; Start 01/17/17 at 07:00; Stop 01/18/17 at 06:59 Lidocaine HCl 2 ml PRN 1X PRN ID PRIOR TO IV START; Start 01/17/17 at 07:00; Stop 01/18/17 at 06:59 Morphine Sulfate 1 mg PRN Q10MIN PRN IV SEVERE PAIN; Start 01/17/17 at 07:00; Stop 01/18/17 at 06:59 Ondansetron HCl (Zofran) 4 mg PRN Q6HRS PRN IV NAUSEA/VOMITING; Start 01/17/17 at 07:00; Stop 01/18/17 at 06:59 Phenylephrine HCl 1 mg STK-MED ONCE IV ; Start 01/17/17 at 10:24; Stop 01/17/17 at 10:25; Status DC Prochlorperazine Edisylate (Compazine) 5 mg PACU PRN PRN IV NAUSEA, MRX1; Start 01/17/17 at 07:00; Stop 01/18/17 at 06:59 Propofol 20 ml @ As Directed STK-MED ONCE IV ; Start 01/17/17 at 10:24; Stop 01/17 at 10:25; Status DC Ringer's Solution 1,000 ml @ 30 mls/hr Q24H IV ; Start 01/17/17 at 07:00; Stop 01/17/17 at 18:59 Vancomycin HCl 1 each 1X ONCE MC Last administered on 01/17/17t 05:00; Start at 05:00; Stop 01/17/17 at 05:01; Status DC Vancomycin HCl 500 mg/Sodium Chloride 100 ml @ 100 mls/hr QTUTHSA IV ; Start at 16:00; Stop 01/18/17 at 16:00; Status DC Comment Review of Relevant I have reviewed the following items michelle (where applicable) has been applied. TUNG COX MD Jan 17, 2017 18:40
[2017-01-17] MEDS: FOLIC/VIT B COMP W-C (RENAL) TABLET. PO SCH (21:45)
[2017-01-17] MEDS: AMINO AC 3%/ELECTROLYTE/GLYCER 1,000 ML IV SCH (21:46)
[2017-01-17] MEDS: NOREPINEPHRIN PREMIX 250 ML IV PRN (23:13)
[2017-01-17] MEDS: HEPARIN 25,000UTS/500ML PREMIX 500 ML IV PRN (23:14)
[2017-01-18] VITALS (25 sets, daily range): BP systolic 84–120; BP diastolic 34–69
[2017-01-18] MEDS: AMPICILLIN SODIUM 2 GM in IV NORMAL SALINE 100ML 100 ML IV SCH ×3 (05:39→22:37)
[2017-01-18 06:29] LABS: ALBUMIN 2.7 g/dL (3.4-5.0); CALCIUM 8.5 mg/dL (8.5-10.1); CREATININE 4.7 mg/dL (0.6-1.0); GFR 9.1; PHOSPHORUS 4.7 mg/dL (2.6-4.7); POTASSIUM 4.7 mmol/L (3.5-5.1)
[2017-01-18] MEDS ORDERED: IV NORMAL SALINE 1000ML BAG 1,000 ML IV PRN ×2 (08:05)
[2017-01-18] MEDS: ANTI-COAG MONITOR BY PHARMACY. MC PRN (08:06)
[2017-01-18] MEDS ORDERED: DIALYSIS PATIENT. MC PRN ×2 (08:15)
[2017-01-18] MEDS: TPN PER PHARMACY MC PRN (10:07)
--- NOTE | 2017-01-18 10:42 | PDOC ---
Infectious Disease Note Subjective Subjective Resting No fever ROS ROS no n/v/d/pain Vital Sign Vital Signs Vital Signs Date Time Temp Pulse Resp B/P (MAP) Pulse Ox O2 Delivery O2 Flow Rate FiO2 01/18/17 09:00 79 18 102/50 (67) 100 Nasal Cannula 2.0 01/18/17 08:00 97.7 97.7 Physical Exam PHYSICAL EXAM GENERAL: Sleeping, dialyzing LUNGS: Clear HEART: S1S2, no murmur appreciated, irregular, pacemaker ABD: Soft, NT, BS active EXT: No edema, no cyanosis. LUE AV fistula DRAFTER CASTINGS: Sleeping SKIN: No rash, no peripheral stigmata RIJ. (01/15) clean Labs Lab Laboratory Tests Test 01/17/17 13:09 01/18/17 05:30 Glucose (Fingerstick) 125 mg/dL (70-99) Heparin Anti-Xa Act, Unfractionated 0.19 IU/mL (0.30-0.70) Sodium Level 135 mmol/L (136-145) Potassium Level 4.7 mmol/L (3.5-5.1) Chloride Level 96 mmol/L (98-107) Carbon Dioxide Level 28 mmol/L (21-32) Anion Gap 11 (6-14) Blood Urea Nitrogen 33 mg/dL (7-20) Creatinine 4.7 mg/dL (0.6-1.0) Estimated GFR (Cockcroft-Gault) 9.1 Glucose Level 124 mg/dL (70-99) Calcium Level 8.5 mg/dL (8.5-10.1) Phosphorus Level 4.7 mg/dL (2.6-4.7) Magnesium Level 2.2 mg/dL (1.8-2.4) Albumin 2.7 g/dL (3.4-5.0) MARY JANE, 01/17. <Conclusion> The left ventricular systolic function is normal and the ejection fraction is within normal range. Visually, the left ventricular ejection fraction is estimated at 65%. The aortic valve is mildly sclerotic. The aortic valve is trileaflet. Doppler and Color Flow revealed moderate aortic regurgitation. A 2 x 1 x 2 cm. hyperechoic mass is noted attached to the non-coronary cusp of the aortic valve consistent with a vegetation. There is no evidence of mitral valve prolapse. A small, mobile vegetation is noted superior and medially to the mitral valve. The mitral valve leaflets are thickened and calcified. Doppler and Color Flow revealed moderate mitral regurgita Micro 01/16. BLOOD CULTURE Preliminary NO GROWTH AFTER 1 DAY 01/14. BLOOD CULT RESULT 1 Final Enterococcus faecalis Recovered from aerobic and anaerobic bottles. 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 -TTE AV + mass on noncoronary cusp AV. MARY JANE 2 x 1 x 2 cm on AV & small mobile veg MV -Repeat BC NGTD, 01/16 Hypotension, on Levophed gtt Abnormal splenic lesion CT- c/w hemangioma; appreciate surgery's input Leukocytosis, trending down Encephalopathy, better Generalized aches - no history of PMR or fibromyalgia per . no joint inflammation Afib RVR + MRSA screen Recent UTI H/o C-diff Thrombocytopenia CKD/HD Plan Plan of Care Ampicillin (started 01/17). Gent. Last dose 01/16 Monitor WBC, Temp f/u BC D/w micro awaiting gent susceptibility testing Critically ill Attending Co-Sign The patient was seen and interviewed as well as examined at the bedside. The chart was reviewed. The case was discussed. Agree with the plan of care. ROBERTO BEAVERS APRN Jan 18, 2017 10:42 YENIFER ACOSTA MD Jan 18, 2017 12:29
[2017-01-18] MEDS: CALCIUM ACETATE 667 MG CAPSULE PO SCH ×3 (12:00→17:00)
[2017-01-18] MEDS: fentaNYL PF VIAL 100 MCG/2 ML VIAL IV PRN (12:11)
--- NOTE | 2017-01-18 13:41 | PDOC ---
PROGRESS NOTES Subjective Subjective PT A LITTLE MORE ALERT WAS ABLE TO EAT TODAY SOME. Objective Objective Vital Signs Date Time Temp Pulse Resp B/P (MAP) Pulse Ox O2 Delivery O2 Flow Rate FiO2 01/18/17 12:11 19 Nasal Cannula 2.0 01/18/17 12:00 98.7 118 93/48 (63) 100 98.7 Physical Exam Physical Exam NO CHANGES IN CARDIAC EXAM Assessment Assessment PT'S BP IS LABILE, WILL WEAN OF THE LEVOPHED AND SEE HOW SHE DOES. CONTINUE TPN FOR AT LEAST 24 HRS MORE AND IF SHE IS ABLE TO EAT ENOUGH FOR PROPER NUTRITION THEN DC THE TPN. DR BLEVINS IS GOING TO COVER FOR ME UNTIL Friday. Comment Review of Relevant I have reviewed the following items michelle (where applicable) has been applied. Labs Laboratory Tests Test 01/16/17 13:50 01/17/17 05:00 01/17/17 13:09 01/18/17 05:30 Heparin Anti-Xa Act, Unfractionated 0.43 IU/mL (0.30-0.70) 0.31 IU/mL (0.30-0.70) 0.19 IU/mL (0.30-0.70) White Blood Count 18.4 x10^3/uL (4.0-11.0) Red Blood Count 2.81 x10^6/uL (3.50-5.40) Hemoglobin 9.8 g/dL (12.0-15.5) Hematocrit 30.9 % (36.0-47.0) Mean Corpuscular Volume 110 fL (79-100) Mean Corpuscular Hemoglobin 35 pg (25-35) Mean Corpuscular Hemoglobin Concent 32 g/dL (31-37) Red Cell Distribution Width 14.6 % (11.5-14.5) Platelet Count 63 x10^3/uL (140-400) Neutrophils (%) (Auto) 79 % (31-73) Lymphocytes (%) (Auto) 11 % (24-48) Monocytes (%) (Auto) 8 % (0-9) Eosinophils (%) (Auto) 2 % (0-3) Basophils (%) (Auto) 1 % (0-3) Neutrophils # (Auto) 14.6 x10^3uL (1.8-7.7) Lymphocytes # (Auto) 2.0 x10^3/uL (1.0-4.8) Monocytes # (Auto) 1.4 x10^3/uL (0.0-1.1) Eosinophils # (Auto) 0.3 x10^3/uL (0.0-0.7) Basophils # (Auto) 0.1 x10^3/uL (0.0-0.2) Segmented Neutrophils % 84 % (35-66) Band Neutrophils % 2 % (0-9) Lymphocytes % 3 % (24-48) Monocytes % 8 % (0-10) Eosinophils % 3 % (0-5) Platelet Estimate Decreased (ADEQUATE) Polychromasia Slight Anisocytosis Slight Sodium Level 137 mmol/L (136-145) 135 mmol/L (136-145) Potassium Level 4.4 mmol/L (3.5-5.1) 4.7 mmol/L (3.5-5.1) Chloride Level 98 mmol/L (98-107) 96 mmol/L (98-107) Carbon Dioxide Level 30 mmol/L (21-32) 28 mmol/L (21-32) Anion Gap 9 (6-14) 11 (6-14) Blood Urea Nitrogen 25 mg/dL (7-20) 33 mg/dL (7-20) Creatinine 3.9 mg/dL (0.6-1.0) 4.7 mg/dL (0.6-1.0) Estimated GFR (Cockcroft-Gault) 11.3 9.1 BUN/Creatinine Ratio 6 (6-20) Glucose Level 110 mg/dL (70-99) 124 mg/dL (70-99) Calcium Level 8.5 mg/dL (8.5-10.1) 8.5 mg/dL (8.5-10.1) Phosphorus Level 4.1 mg/dL (2.6-4.7) 4.7 mg/dL (2.6-4.7) Magnesium Level 2.0 mg/dL (1.8-2.4) 2.2 mg/dL (1.8-2.4) Total Bilirubin 1.2 mg/dL (0.2-1.0) Aspartate Amino Transf (AST/SGOT) 35 U/L (15-37) Alanine Aminotransferase (ALT/SGPT) 27 U/L (14-59) Alkaline Phosphatase 118 U/L (46-116) Total Protein 6.2 g/dL (6.4-8.2) Albumin 2.8 g/dL (3.4-5.0) 2.7 g/dL (3.4-5.0) Albumin/Globulin Ratio 0.8 (1.0-1.7) Random Vancomycin Level 13.8 mcg/mL Glucose (Fingerstick) 125 mg/dL (70-99) Laboratory Tests Test 01/18/17 05:30 Heparin Anti-Xa Act, Unfractionated 0.19 IU/mL (0.30-0.70) Sodium Level 135 mmol/L (136-145) Potassium Level 4.7 mmol/L (3.5-5.1) Chloride Level 96 mmol/L (98-107) Carbon Dioxide Level 28 mmol/L (21-32) Anion Gap 11 (6-14) Blood Urea Nitrogen 33 mg/dL (7-20) Creatinine 4.7 mg/dL (0.6-1.0) Estimated GFR (Cockcroft-Gault) 9.1 Glucose Level 124 mg/dL (70-99) Calcium Level 8.5 mg/dL (8.5-10.1) Phosphorus Level 4.7 mg/dL (2.6-4.7) Magnesium Level 2.2 mg/dL (1.8-2.4) Albumin 2.7 g/dL (3.4-5.0) Microbiology 01/16/17 Blood Culture - Preliminary, Resulted NO GROWTH AFTER 2 DAYS Medications Current Medications Sodium Chloride 500 ml @ 500 mls/hr 1X ONCE IV Last administered on 06:45; Start 01/09/17 at 06:45; Stop 01/09/17 at 07:44; Status DC Diltiazem HCl (Cardizem) 10 mg 1X ONCE IVP Last administered on 01/09/17 07: 39; Start 01/09/17 at 07:30; Stop 01/09/17 at 07:31; Status DC Diltiazem HCl 125 mg/Dextrose 125 ml @ 0 mls/hr CONT PRN IV SEE I/O RECORD Last administered on 01/09/17 07:40; Start 01/09/17 at 07:30 Aspirin (Children'S Aspirin) 324 mg 1X ONCE PO Last administered on 01/09/17 08:15; Start 01/09/17 at 07:45; Stop 01/09/17 at 07:46; Status DC Darbepoetin Jerome (Aranesp) 60 mcg WEEKLYHS SQ Last administered on 01/16/17 21 :10; Start 01/09/17 at 21:00 Albumin Human 500 ml @ 125 mls/hr 1X ONCE IV Last administered on 01/09/17 13:02; Start 01/09/17 at 13:00; Stop 01/09/17 at 16:59; Status DC Albumin Human 500 ml @ 125 mls/hr 1X ONCE IV Last administered on 01/09/17 16:35; Start 01/09/17 at 16:00; Stop 01/09/17 at 19:59; Status DC Digoxin (Lanoxin) 500 mcg 1X ONCE IV Last administered on 01/09/17 13:03; Start 01/09/17 at 13:00; Stop 01/09/17 at 13:01; Status DC Sodium Chloride 1,000 ml @ 1,000 mls/hr Q1H PRN IV hypotension; Start 01/09/17 at 16:31; Stop 01/09/17 at 22:30; Status DC Sodium Chloride 1,000 ml @ 400 mls/hr Q2H30M PRN IV PATENCY; Start 01/09/17 at 16:31; Stop 01/10/17 at 04:30; Status DC Info (PHARMACY MONITORING -- do not chart) 1 each PRN DAILY PRN MC SEE COMMENTS ; Start 01/09/17 at 16:45; Status Cancel Fentanyl Citrate (Fentanyl 2ml Vial) 50 mcg PRN Q4HRS PRN IV PAIN Last administered on 01/18/17 12:11; Start 01/09/17 at 18:00 Oxycodone/ Acetaminophen (Percocet 5/325) 1 tab PRN Q4HRS PRN PO PAIN Last administered on 01/11/17 08:31; Start 01/09/17 at 18:00 Fentanyl Citrate (Fentanyl 2ml Vial) 50 mcg 1X ONCE IM ; Start 01/09/17 at 20: 00; Stop 01/09/17 at 20:01; Status Cancel Fentanyl Citrate (Fentanyl 2ml Vial) 50 mcg 1X ONCE IV Last administered on 19:57; Start 01/09/17 at 20:00; Stop 01/09/17 at 20:01; Status DC Allopurinol (Zyloprim) 100 mg DAILY PO Last administered on 01/17/17 08:41; Start 01/10/17 at 14:30 Aspirin (Ecotrin) 81 mg DAILY PO Last administered on 01/17/17 08:41; Start at 14:30 Atenolol (Tenormin) 50 mg DAILY PO Last administered on 01/12/17 09:09; Start 01/10/17 at 14:30; Stop 01/12/17 at 14:50; Status DC Calcium Acetate (Phoslo) 2,001 mg TIDWMEALS PO Last administered on 01/17/17 17 :26; Start 01/10/17 at 17:00 Vitamin B Complex/ Vitamin C (Tsering-Ray) 1 tab HS PO Last administered on 21:45; Start 01/10/17 at 21:00 Gabapentin (Neurontin) 100 mg BID PO Last administered on 01/17/17 21:45; Start 01/10/17 at 14:30 Meloxicam (Mobic) 7.5 mg DAILY PO Last administered on 01/17/17 08:43; Start at 14:30 Fish Oil (Fish Oil) 1,000 mg DAILY PO Last administered on 01/17/17 09:00; Start 01/11/17 at 09:00 Pantoprazole Sodium (Protonix) 40 mg DAILYAC PO Last administered on 01/17/17 08:41; Start 01/10/17 at 14:30 Digoxin (Lanoxin) 500 mcg 1X ONCE IV Last administered on 01/10/17 15:23; Start 01/10/17 at 15:30; Stop 01/10/17 at 15:31; Status DC Albumin Human 500 ml @ 125 mls/hr 1X ONCE IV Last administered on 01/10/17 15:22; Start 01/10/17 at 15:15; Stop 01/10/17 at 19:14; Status DC Lidocaine HCl (Xylocaine-Mpf 1% Vial) 2 ml STK-MED ONCE .ROUTE ; Start 01/11/17 at 08:47; Stop 01/11/17 at 08:48; Status DC Sodium Chloride 1,000 ml @ 1,000 mls/hr Q1H PRN IV hypotension; Start 01/11/17 at 08:55; Stop 01/11/17 at 14:54; Status DC Albumin Human 200 ml @ 200 mls/hr 1X PRN PRN IV Hypotension; Start 01/11/17 at 09:00; Stop 01/11/17 at 14:59; Status DC Acetaminophen (Tylenol) 500 mg 1X PRN PRN PO MILD PAIN / TEMP; Start 01/11/17 at 09:00; Stop 01/12/17 at 08:59; Status DC Diphenhydramine HCl (Benadryl) 25 mg 1X PRN PRN IV ITCHING Last administered on 01/11/17 13:30; Start 01/11/17 at 09:00; Stop 01/12/17 at 08:59; Status DC Info (PHARMACY MONITORING -- do not chart) 1 each PRN DAILY PRN MC SEE COMMENTS ; Start 01/11/17 at 09:00; Stop 01/18/17 at 08:14; Status DC Lidocaine HCl (Xylocaine-Mpf 1% Vial) 2 ml 1X ONCE INJ Last administered on 10:01; Start 01/11/17 at 09:00; Stop 01/11/17 at 09:02; Status DC Albumin Human 500 ml @ 125 mls/hr 1X ONCE IV Last administered on 01/11/17 11:50; Start 01/11/17 at 11:45; Stop 01/11/17 at 15:44; Status DC Nitroglycerin (Nitrostat) 0.4 mg STK-MED ONCE SL ; Start 01/11/17 at 12:07; Stop 01/11/17 at 12:08; Status DC Nitroglycerin (Nitrostat) 0.4 mg PRN Q5MIN PRN SL CHEST PAIN Last administered on 01/11/17 12:35; Start 01/11/17 at 12:15 Morphine Sulfate 3 mg 1X ONCE IV Last administered on 01/11/17 12:15; Start 01/11/17 at 12:15; Stop 01/11/17 at 12:16; Status DC Digoxin (Lanoxin) 250 mcg 1X ONCE IV Last administered on 01/11/17 12:34; Start 01/11/17 at 12:30; Stop 01/11/17 at 12:31; Status DC Fentanyl Citrate (Fentanyl 5ml Vial) 250 mcg STK-MED ONCE .ROUTE ; Start at 13:07; Stop 01/11/17 at 13:08; Status DC Midazolam HCl (Versed) 5 mg STK-MED ONCE .ROUTE ; Start 01/11/17 at 13:07; Stop 01/11/17 at 13:08; Status DC Iohexol (Omnipaque 350 Mg/ml) 100 ml STK-MED ONCE .ROUTE ; Start 01/11/17 at 13: 08; Stop 01/11/17 at 13:09; Status DC Heparin Sodium/ Sodium Chloride 500 ml @ As Directed STK-MED ONCE .ROUTE ; Start 01/11/17 at 13:09; Stop 01/11/17 at 13:10; Status DC Lidocaine HCl 20 ml STK-MED ONCE .ROUTE ; Start 01/11/17 at 13:09; Stop at 13:10; Status DC Heparin Sodium/ Sodium Chloride 1,000 unit 1X ONCE IART Last administered on 13:50; Start 01/11/17 at 13:45; Stop 01/11/17 at 13:46; Status DC Midazolam HCl (Versed) 1 mg 1X ONCE IV Last administered on 01/11/17 13:51; Start 01/11/17 at 13:45; Stop 01/11/17 at 13:46; Status DC Fentanyl Citrate (Fentanyl 5ml Vial) 50 mcg 1X ONCE IV Last administered on 13:51; Start 01/11/17 at 13:45; Stop 01/11/17 at 13:46; Status DC Iohexol (Omnipaque 350 Mg/ml) 81 ml 1X ONCE IART Last administered on 13:51; Start 01/11/17 at 13:45; Stop 01/11/17 at 13:46; Status DC Lidocaine HCl 12 ml 1X ONCE IJ Last administered on 01/11/17 13:50; Start at 13:45; Stop 01/11/17 at 13:46; Status DC Info (Do NOT chart on this entry -- for MONITORING) 1 each PRN DAILY PRN MC SEE COMMENTS; Start 01/11/17 at 14:00; Stop 01/13/17 at 13:59; Status DC Albumin Human 250 ml @ 62.5 mls/hr 1X ONCE IV Last administered on 01/11/17 14:15; Start 01/11/17 at 14:15; Stop 01/11/17 at 18:14; Status DC Digoxin (Lanoxin) 250 mcg 1X ONCE IV Last administered on 01/11/17 19:02; Start 01/11/17 at 18:45; Stop 01/11/17 at 18:46; Status DC Ondansetron HCl (Zofran) 8 mg PRN Q6HRS PRN IV NAUSEA/VOMITING Last administered on 01/15/17 04:04; Start 01/11/17 at 18:45 Enoxaparin Sodium (Lovenox 100mg Syringe) 90 mg Q24H SQ Last administered on 21:09; Start 01/11/17 at 20:00; Stop 01/15/17 at 11:08; Status DC Propafenone HCl (Rythmol) 75 mg BID PO Last administered on 01/17/17 21:45; Start 01/12/17 at 21:00 Norepinephrine Bitartrate 250 ml @ 0 mls/hr CONT PRN IV SEE I/O RECORD Last administered on 01/17/17 23:13; Start 01/12/17 at 15:45 Info (Anti-Coagulation Monitoring By Pharmacy) 1 each PRN DAILY PRN MC SEE COMMENTS Last administered on 01/18/17 08:06; Start 01/13/17 at 09:00 Magnesium Sulfate/ Dextrose 50 ml @ 25 mls/hr PRN DAILY PRN IV for Mag < 1.7 on am labs; Start 01/13/17 at 10:45 Sodium Chloride 1,000 ml @ 80 mls/hr [id number] IV Last administered on 10:50; Start 01/13/17 at 10:45; Stop 01/14/17 at 19:07; Status DC Sodium Chloride 500 ml @ 0 mls/hr QID PRN IV for MAP < 65 Last administered on 01/14/17 01:15; Start 01/13/17 at 10:45 Sodium Chloride 1,000 ml @ 1,000 mls/hr Q1H PRN IV hypotension; Start 01/14/17 at 09:11; Stop 01/14/17 at 15:10; Status DC Info (PHARMACY MONITORING -- do not chart) 1 each PRN DAILY PRN MC SEE COMMENTS ; Start 01/14/17 at 09:15; Status UNV Piperacillin Sod/ Tazobactam Sod 2.25 gm/Sodium Chloride 50 ml @ 100 mls/hr Q8HRS IV Last administered on 01/17/17 05:01; Start 01/14/17 at 12:30; Stop 01/17/17 at 14:30; Status DC Micafungin Sodium 100 mg/Dextrose 100 ml @ 100 mls/hr Q24H IV Last administered on 01/16/17 13:42; Start 01/14/17 at 13:00; Stop 01/17/17 at 14:30 ; Status DC Vancomycin HCl (Vanco Per Pharmacy) 1 each PRN DAILY PRN MC SEE COMMENTS Last administered on 01/17/17 11:01; Start 01/15/17 at 07:15; Stop 01/17/17 at 14:30; Status DC Vancomycin HCl 2 gm/Sodium Chloride 500 ml @ 250 mls/hr 1X ONCE IV Last administered on 01/15/17 07:55; Start 01/15/17 at 08:00; Stop 01/15/17 at 09:59 ; Status DC Metronidazole 100 ml @ 100 mls/hr Q8H IV Last administered on 01/16/17 00:03 ; Start 01/15/17 at 08:00; Stop 01/16/17 at 08:02; Status DC Iohexol (Omnipaque 300 Mg/ml) 75 ml 1X ONCE IV ; Start 01/15/17 at 08:00; Stop 01/15/17 at 08:01; Status DC Lidocaine/Sodium Bicarbonate (Buffered Lidocaine 1%) 3 ml 1X ONCE IJ Last administered on 01/15/17 09:00; Start 01/15/17 at 08:30; Stop 01/15/17 at 08:32 ; Status DC Heparin Sodium/ Sodium Chloride 60 unit 1X ONCE IV Last administered on 09:01; Start 01/15/17 at 08:30; Stop 01/15/17 at 08:32; Status DC Heparin Sodium (Porcine) (Heparin Sodium) 3,000 unit 1X ONCE IV Last administered on 01/15/17 20:21; Start 01/15/17 at 21:00; Stop 01/15/17 at 21:01 ; Status DC Heparin Sodium/ Dextrose 500 ml @ 0 mls/hr CONT PRN IV SEE I/O RECORD Last administered on 01/17/17 23:14; Start 01/15/17 at 21:00 Iohexol (Omnipaque 300 Mg/ml) 75 ml 1X ONCE IV Last administered on 01/15/17 12:15; Start 01/15/17 at 12:15; Stop 01/15/17 at 12:16; Status DC Info (Do NOT chart on this entry -- for MONITORING) 1 each PRN DAILY PRN MC SEE COMMENTS; Start 01/15/17 at 12:15; Stop 01/17/17 at 12:14; Status DC Vancomycin HCl 1 each 1X ONCE MC Last administered on 01/17/17 05:00; Start at 05:00; Stop 01/17/17 at 05:01; Status DC Info (PHARMACY MONITORING -- do not chart) 1 each PRN DAILY PRN MC SEE COMMENTS ; Start 01/16/17 at 07:45; Status UNV Info (PHARMACY MONITORING -- do not chart) 1 each PRN DAILY PRN MC SEE COMMENTS ; Start 01/16/17 at 07:45; Status UNV Info (PHARMACY MONITORING -- do not chart) 1 each PRN DAILY PRN MC SEE COMMENTS ; Start 01/16/17 at 07:45; Status UNV Sodium Chloride 1,000 ml @ 1,000 mls/hr Q1H PRN IV hypotension; Start 01/16/17 at 07:32; Stop 01/16/17 at 13:31; Status DC Albumin Human 200 ml @ 200 mls/hr 1X PRN PRN IV Hypotension; Start 01/16/17 at 07:45; Stop 01/16/17 at 13:44; Status DC Info (PHARMACY MONITORING -- do not chart) 1 each PRN DAILY PRN MC SEE COMMENTS ; Start 01/16/17 at 07:45; Status UNV Gentamicin Sulfate 1 each ONCE ONCE MC ; Start 01/16/17 at 08:00; Stop at 08:04; Status DC Gentamicin Sulfate 180 mg/ Sodium Chloride 104.5 ml @ 104.5 mls/ hr 1X ONCE IV Last administered on 01/16/17t 11:50; Start 01/16/17 at 09:00; Stop at 09:59; Status DC Lidocaine HCl (Xylocaine 2% Topical 5gm Tube) 1 edwardo 1X ONCE TP ; Start at 14:45; Stop 01/16/17 at 14:53; Status DC Lidocaine HCl (Viscous Lidocaine) 15 ml 1X ONCE MM ; Start 01/16/17 at 14:45; Stop 01/16/17 at 14:53; Status DC Benzocaine (Hurricaine One) 1spray 1X ONCE MM Last administered on 01/16/17t 14:45; Start 01/16/17 at 14:45; Stop 01/16/17 at 14:53; Status DC Ondansetron HCl (Zofran) 4 mg PRN Q6HRS PRN IV NAUSEA/VOMITING; Start 01/17/17 at 07:00; Stop 01/18/17 at 06:59; Status DC Fentanyl Citrate (Fentanyl 2ml Vial) 25 mcg PRN Q5MIN PRN IV MILD PAIN; Start 01/17/17 at 07:00; Stop 01/18/17 at 06:59; Status DC Fentanyl Citrate (Fentanyl 2ml Vial) 50 mcg PRN Q5MIN PRN IV MODERATE PAIN; Start 01/17/17 at 07:00; Stop 01/18/17 at 06:59; Status DC Morphine Sulfate 1 mg PRN Q10MIN PRN IV SEVERE PAIN; Start 01/17/17 at 07:00; Stop 01/18/17 at 06:59; Status DC Ringer's Solution 1,000 ml @ 30 mls/hr Q24H IV ; Start 01/17/17 at 07:00; Stop 01/17/17 at 18:59; Status DC Lidocaine HCl 2 ml PRN 1X PRN ID PRIOR TO IV START; Start 01/17/17 at 07:00; Stop 01/18/17 at 06:59; Status DC Hydromorphone HCl (Dilaudid) 0.5 mg PRN Q10MIN PRN IV SEV PAIN, Second choice; Start 01/17/17 at 07:00; Stop 01/18/17 at 06:59; Status DC Prochlorperazine Edisylate (Compazine) 5 mg PACU PRN PRN IV NAUSEA, MRX1; Start 01/17/17 at 07:00; Stop 01/18/17 at 06:59; Status DC Propofol 20 ml @ As Directed STK-MED ONCE IV ; Start 01/17/17 at 10:24; Stop 01/17 at 10:25; Status DC Phenylephrine HCl 1 mg STK-MED ONCE IV ; Start 01/17/17 at 10:24; Stop 01/17/17 at 10:25; Status DC Vancomycin HCl 500 mg/Sodium Chloride 100 ml @ 100 mls/hr QTUTHSA IV ; Start at 16:00; Stop 01/18/17 at 16:00; Status DC Ampicillin Sodium 2 gm/Sodium Chloride 100 ml @ 200 mls/hr Q8HRS IV Last administered on 01/18/17 05:39; Start 01/17/17 at 15:00 Gentamicin Sulfate 270 mg/ Sodium Chloride 106.75 ml @ 106.75 mls/hr Q24H IV ; Start 01/17/17 at 14:15; Status UNV Info 1 each PRN DAILY PRN MC SEE COMMENTS Last administered on 01/18/17 10:07; Start 01/17/17 at 21:30 Amino Acids/ Glycerin/ Electrolytes 1,000 ml @ 50 mls/hr Q20H IV Last administered on 01/17/17 21:46; Start 01/17/17 at 21:30; Stop 01/18/17 at 21:59 Sodium Chloride 1,000 ml @ 1,000 mls/hr Q1H PRN IV hypotension; Start 01/18/17 at 08:05; Stop 01/18/17 at 14:04 Sodium Chloride 1,000 ml @ 400 mls/hr Q2H30M PRN IV PATENCY; Start 01/18/17 at 08:05; Stop 01/18/17 at 20:04 Info (PHARMACY MONITORING -- do not chart) 1 each PRN DAILY PRN MC SEE COMMENTS ; Start 01/18/17 at 08:15 Info (PHARMACY MONITORING -- do not chart) 1 each PRN DAILY PRN MC SEE COMMENTS ; Start 01/18/17 at 08:15; Stop 01/18/17 at 08:15; Status DC Sodium Chloride 90 meq/Potassium Chloride 50 meq/ Potassium Phosphate 13.6 mmol/ Magnesium Sulfate 10 meq/ Calcium Gluconate 10 meq/ Multivitamins 10 ml/Chromium / Copper/Manganese/ Seleni/Zn 1 ml/ Total Parenteral Nutrition/Amino Acids/ Dextrose/ Fat Emulsion Intravenous 1,512 ml @ 63 mls/hr TPN CONT IV ; Start at 22:00; Stop 01/19/17 at 21:59 Active Scripts Active Reported Ferric Citrate 210 Mg Tablet 210 Mg PO Meloxicam 7.5 Mg Tablet 1 Tab PO DAILY Atenolol 50 Mg Tablet 1 Tab PO DAILY Tylenol (Acetaminophen) 325 Mg Tablet 500 Mg PO PRN Q6HRS PRN Aspir 81 (Aspirin) 81 Mg Tablet.dr 1 Tab PO DAILY Fish Oil 1,000 Mg Capsule ([place]-3 Fatty Acids/Fish Oil) 1 Each Capsule 1 Each PO BID Vitamin D2 (Ergocalciferol (Vitamin D2)) 50,000 Unit Capsule 50,000 Unit PO WEEKLY Allopurinol 100 Mg Tablet 1 Tab PO DAILY Nephro-Ray Tablet (Folic Acid/Vitamin B Comp W-C) 0.8 Mg Tablet 1 Tab PO HS Gabapentin 100 Mg Capsule 100 Mg PO BID Omeprazole 20 Mg Capsule.dr 20 Mg PO DAILY Calcium Acetate 667 Mg Capsule 2,001 Mg PO TIDWMEALS Vitals/I & O Vital Sign - Last 24 Hours 01/17/17 01/17/17 01/17/17 01/17/17 14:00 15:00 16:00 16:00 Temp 97.8 97.8 Pulse 86 106 94 Resp 19 22 20 B/P (MAP) 92/32 (52) 79/46 (57) 113/52 (72) Pulse Ox 99 100 100 O2 Delivery Nasal Cannula Nasal Cannula Nasal Cannula Nasal Cannula O2 Flow Rate 2.0 2.0 2.0 2.0 01/17/17 01/17/17 01/17/17 01/17/17 17:00 18:00 19:00 20:00 Pulse 86 93 88 Resp 20 20 20 B/P (MAP) 107/65 (79) 99/46 (63) 105/44 (64) Pulse Ox 99 99 99 O2 Delivery Nasal Cannula Nasal Cannula Nasal Cannula Nasal Cannula O2 Flow Rate 2.0 2.0 2.0 2.0 01/17/17 01/17/17 01/17/17 01/17/17 20:00 21:00 21:45 22:00 Temp 98.3 98.3 Pulse 98 92 109 105 Resp 18 20 16 B/P (MAP) 97/46 (63) 114/49 (70) 102/53 117/59 (78) Pulse Ox 99 99 100 O2 Delivery Nasal Cannula Nasal Cannula Nasal Cannula O2 Flow Rate 2.0 2.0 2.0 01/17/17 01/18/17 01/18/17 01/18/17 23:00 00:00 00:00 01:00 Temp 98.7 98.7 Pulse 99 98 88 Resp 16 20 16 B/P (MAP) 99/55 (70) 113/42 (65) 94/49 (64) Pulse Ox 100 100 100 O2 Delivery Nasal Cannula Nasal Cannula Nasal Cannula Nasal Cannula O2 Flow Rate 2.0 2.0 2.0 2.0 01/18/17 01/18/17 01/18/17 01/18/17 02:00 03:00 04:00 04:00 Pulse 88 78 82 Resp 16 18 B/P (MAP) 110/49 (69) 86/49 (61) 99/49 (66) Pulse Ox 100 100 100 O2 Delivery Nasal Cannula Nasal Cannula Nasal Cannula Nasal Cannula O2 Flow Rate 2.0 2.0 2.0 2.0 01/18/17 01/18/17 01/18/17 01/18/17 05:00 06:00 07:00 08:00 Temp 98.4 97.7 98.4 97.7 Pulse 101 82 84 79 Resp 18 B/P (MAP) 100/50 (67) 98/49 (65) 84/47 (59) 105/43 (63) Pulse Ox 100 100 100 100 O2 Delivery Nasal Cannula Nasal Cannula Nasal Cannula Nasal Cannula O2 Flow Rate 2.0 2.0 2.0 2.0 01/18/17 01/18/17 01/18/17 01/18/17 09:00 10:00 11:00 12:00 Temp 98.7 98.7 Pulse 79 94 92 118 Resp 18 B/P (MAP) 102/50 (67) 98/34 (55) 115/53 (73) 93/48 (63) Pulse Ox 100 100 100 100 O2 Delivery Nasal Cannula Nasal Cannula Nasal Cannula Nasal Cannula O2 Flow Rate 2.0 2.0 2.0 2.0 01/18/17 12:11 Resp 19 O2 Delivery Nasal Cannula O2 Flow Rate 2.0 INEZ GRADY MD Jan 18, 2017 13:41
[2017-01-18] MEDS: PROPAFENONE 150 MG TABLET. PO SCH ×2 (13:42→22:36)
[2017-01-18] MEDS: ALLOPURINOL 100 MG TABLET. PO SCH (13:42)
[2017-01-18] MEDS: PANTOPRAZOLE 40 MG TABLET.DR. PO SCH (13:43)
[2017-01-18] MEDS: OMEGA-3 FATTY ACIDS/FISH OIL 1,000 MG CAPSULE. PO SCH (13:43)
[2017-01-18] MEDS: MELOXICAM 7.5 MG TABLET PO SCH (13:43)
[2017-01-18] MEDS: GABAPENTIN 100 MG CAPSULE. PO SCH ×2 (13:43→22:36)
[2017-01-18] MEDS: ASPIRIN ENTERIC COATED 81 MG TABLET.DR. PO SCH (13:45)
--- NOTE | 2017-01-18 14:25 | PDOC ---
PROGRESS NOTES Assessment Assessment Metabolic encephalopathy. Confusion. Generalized weakness. New onset Afib. CHF Renal failure on dialysis. DM HTN Anemia. Gout Obesity RECOMMENDATIONS/PLAN: Treat medical and cardiac disease. OT/PT Discussed with her again at bedside in ICU on 01/18/17. HISTORY OF THE PRESENT ILLNESS: 71-y-old female patient with above medical and cardiac diseases was noted MS changes, confusional episodes and generalized weakness, so Neurology was requested for consultation. no focalized sensory of motor deficits noted. Her condition is improving since 01/16/17. Past Medical History Cardiovascular: HTN, Other Heme/Onc: Anemia NOS Rheumatologic: Gout Renal/: Chronic renal failure Endocrine: Diabetes, Hyperparathyroidism, Other Past Surgical History Pacemaker, Cholecystectomy, Hysterectomy, Other Family History No Significant Social History ALCOHOL: none Drugs: None ALLERGY: Reviewed. MEDICATIONS: Refer to MAR REVIEW OF SYSTEMS: Constitutional: No malnutrition, weight loss, cachexia. Head: No recent traumatic brain or head injury. Skin: No edema, or rash. Ear: No infection. Eyes: No vision loss or color blindness. Nose: No bleeding or purulent discharges. Hearing: Hearing decrease. Neck: No injury. Breast: No history of cancer, masses,or discharges. Cardiac: New onset AFib, Pacemaker Placement, HTN. Pulmonary: No COPD. GI: No GI ulcer, GI bleeding. Urinary/genital: UTI. Endocrinologic: Diabetes Mellitus, obesity. Skeletomuscular: Generalized weakness. Neurological: see HP. Psychiatric: Denies drug use/abuse. Otherwise, not [id number] review of systems. PHYSICAL EXAMINATION: General appearance is in subacute distress. HEENT: Normocephalic and nontraumatic. Eyes, nose, ears, and throat are unremarkable. Neck is supple. No lymphadenopathy. No crepitus. Cardiovascular: S1, S2, irregular rate and rhythm. Pulmonary: Clear to auscultation bilaterally. Abdomen: Bowel sounds are positive. Extremities: No rash, lesions, or edema. No restriction of range of motion NEUROLOGICAL EXAMINATION: Awake. Not fully oriented to time, but knows place and person. PERRL. EOMI, but slow. CN: no acute focal findings. Muscle tone: within normal. Muscle strength: 4+ UE, 3+ LE DTR: 1-2 Plantar reflex: Flexor response bilaterally Gait: not examined in bed. Sensory exam: no abnormal findings. Not able to access cerebellar signs this time. F-T-N test not performed due to not follow commands. Objective Objective Vital Signs Date Time Temp Pulse Resp B/P (MAP) Pulse Ox O2 Delivery O2 Flow Rate FiO2 01/18/17 13:42 104 107/38 01/18/17 12:41 20 Nasal Cannula 2.0 01/18/17 12:00 98.7 100 98.7 Vitals Signs Vitals VS - Last 72 Hours, by Label Date Time Temp Pulse Resp B/P (MAP) Pulse Ox O2 Delivery O2 Flow Rate FiO2 01/18/17 13:42 104 107/38 01/18/17 12:41 20 Nasal Cannula 2.0 01/18/17 12:11 19 Nasal Cannula 2.0 01/18/17 12:00 98.7 118 93/48 (63) 100 Nasal Cannula 2.0 98.7 01/18/17 11:00 92 115/53 (73) 100 Nasal Cannula 2.0 01/18/17 10:00 94 98/34 (55) 100 Nasal Cannula 2.0 01/18/17 09:00 79 18 102/50 (67) 100 Nasal Cannula 2.0 01/18/17 08:00 97.7 79 18 105/43 (63) 100 Nasal Cannula 2.0 97.7 01/18/17 07:00 84 17 84/47 (59) 100 Nasal Cannula 2.0 01/18/17 06:00 82 18 98/49 (65) 100 Nasal Cannula 2.0 01/18/17 05:00 98.4 101 18 100/50 (67) 100 Nasal Cannula 2.0 98.4 01/18/17 04:00 82 18 99/49 (66) 100 Nasal Cannula 2.0 01/18/17 04:00 Nasal Cannula 2.0 01/18/17 03:00 78 16 86/49 (61) 100 Nasal Cannula 2.0 01/18/17 02:00 88 16 110/49 (69) 100 Nasal Cannula 2.0 01/18/17 01:00 88 16 94/49 (64) 100 Nasal Cannula 2.0 01/18/17 00:00 98.7 98 20 113/42 (65) 100 Nasal Cannula 2.0 98.7 01/18/17 00:00 Nasal Cannula 2.0 01/17/17 23:00 99 16 99/55 (70) 100 Nasal Cannula 2.0 01/17/17 22:00 105 16 117/59 (78) 100 Nasal Cannula 2.0 01/17/17 21:45 109 102/53 01/17/17 21:00 92 20 114/49 (70) 99 Nasal Cannula 2.0 01/17/17 20:00 98.3 98 18 97/46 (63) 99 Nasal Cannula 2.0 98.3 01/17/17 20:00 Nasal Cannula 2.0 01/17/17 19:00 88 20 105/44 (64) 99 Nasal Cannula 2.0 01/17/17 18:00 93 20 99/46 (63) 99 Nasal Cannula 2.0 01/17/17 17:00 86 20 107/65 (79) 99 Nasal Cannula 2.0 01/17/17 16:00 Nasal Cannula 2.0 01/17/17 16:00 97.8 94 20 113/52 (72) 100 Nasal Cannula 2.0 97.8 01/17/17 15:00 106 22 79/46 (57) 100 Nasal Cannula 2.0 01/17/17 14:00 86 19 92/32 (52) 99 Nasal Cannula 2.0 01/17/17 13:00 99 19 106/41 (62) 99 Nasal Cannula 2.0 01/17/17 12:00 97.6 79 20 96/52 (67) 97 Nasal Cannula 2.0 97.6 01/17/17 12:00 Nasal Cannula 2.0 01/17/17 11:00 70 16 83/40 (54) 100 Nasal Cannula 2.0 01/17/17 10:00 106 14 99/43 (61) 100 Nasal Cannula 2.0 01/17/17 09:14 80 102/45 01/17/17 09:00 103 16 102/45 (64) 99 Nasal Cannula 2.0 01/17/17 08:00 Nasal Cannula 2.0 01/17/17 08:00 97.6 104 24 103/43 (63) 100 Nasal Cannula 2.0 97.6 01/17/17 07:00 86 16 89/44 (59) 99 Nasal Cannula 2.0 Laboratory Laboratory Laboratory Tests Test 01/18/17 05:30 Heparin Anti-Xa Act, Unfractionated 0.19 IU/mL (0.30-0.70) Sodium Level 135 mmol/L (136-145) Potassium Level 4.7 mmol/L (3.5-5.1) Chloride Level 96 mmol/L (98-107) Carbon Dioxide Level 28 mmol/L (21-32) Anion Gap 11 (6-14) Blood Urea Nitrogen 33 mg/dL (7-20) Creatinine 4.7 mg/dL (0.6-1.0) Estimated GFR (Cockcroft-Gault) 9.1 Glucose Level 124 mg/dL (70-99) Calcium Level 8.5 mg/dL (8.5-10.1) Phosphorus Level 4.7 mg/dL (2.6-4.7) Magnesium Level 2.2 mg/dL (1.8-2.4) Albumin 2.7 g/dL (3.4-5.0) Microbiology 01/16/17 Blood Culture - Preliminary, Resulted NO GROWTH AFTER 2 DAYS Medication Medications Current Medications Amino Acids/ Glycerin/ Electrolytes 1,000 ml @ 50 mls/hr Q20H IV Last administered on 01/17/17 21:46; Start 01/17/17 at 21:30; Stop 01/18/17 at 21:59 Ampicillin Sodium 2 gm/Sodium Chloride 100 ml @ 200 mls/hr Q8HRS IV Last administered on 01/18/17 13:45; Start 01/17/17 at 15:00 Info 1 each PRN DAILY PRN MC SEE COMMENTS Last administered on 01/18/17 10:07; Start 01/17/17 at 21:30 Info (PHARMACY MONITORING -- do not chart) 1 each PRN DAILY PRN MC SEE COMMENTS ; Start 01/18/17 at 08:15; Stop 01/18/17 at 08:15; Status DC Info (PHARMACY MONITORING -- do not chart) 1 each PRN DAILY PRN MC SEE COMMENTS ; Start 01/18/17 at 08:15 Sodium Chloride 1,000 ml @ 400 mls/hr Q2H30M PRN IV PATENCY; Start 01/18/17 at 08:05; Stop 01/18/17 at 20:04 Sodium Chloride 1,000 ml @ 1,000 mls/hr Q1H PRN IV hypotension; Start 01/18/17 at 08:05; Stop 01/18/17 at 14:04; Status DC Sodium Chloride 90 meq/Potassium Chloride 50 meq/ Potassium Phosphate 13.6 mmol/ Magnesium Sulfate 10 meq/ Calcium Gluconate 10 meq/ Multivitamins 10 ml/Chromium / Copper/Manganese/ Seleni/Zn 1 ml/ Total Parenteral Nutrition/Amino Acids/ Dextrose/ Fat Emulsion Intravenous 1,512 ml @ 63 mls/hr TPN CONT IV ; Start at 22:00; Stop 01/19/17 at 21:59 Vancomycin HCl 500 mg/Sodium Chloride 100 ml @ 100 mls/hr QTUTHSA IV ; Start at 16:00; Stop 01/18/17 at 16:00; Status DC Comment Review of Relevant I have reviewed the following items michelle (where applicable) has been applied. TUNG COX MD Jan 18, 2017 14:25
--- NOTE | 2017-01-18 15:10 | PDOC ---
Renal-Progress Notes Subjective Notes Notes NONE History of Present Illness Hx of present illness NO CHANGE Vitals Vitals Vital Signs Date Time Temp Pulse Resp B/P (MAP) Pulse Ox O2 Delivery O2 Flow Rate FiO2 01/18/17 13:42 104 107/38 01/18/17 12:41 20 Nasal Cannula 2.0 01/18/17 12:00 98.7 100 98.7 Weight Weight [ ] Labs Labs Laboratory Tests Test 01/18/17 05:30 Heparin Anti-Xa Act, Unfractionated 0.19 IU/mL (0.30-0.70) Sodium Level 135 mmol/L (136-145) Potassium Level 4.7 mmol/L (3.5-5.1) Chloride Level 96 mmol/L (98-107) Carbon Dioxide Level 28 mmol/L (21-32) Anion Gap 11 (6-14) Blood Urea Nitrogen 33 mg/dL (7-20) Creatinine 4.7 mg/dL (0.6-1.0) Estimated GFR (Cockcroft-Gault) 9.1 Glucose Level 124 mg/dL (70-99) Calcium Level 8.5 mg/dL (8.5-10.1) Phosphorus Level 4.7 mg/dL (2.6-4.7) Magnesium Level 2.2 mg/dL (1.8-2.4) Albumin 2.7 g/dL (3.4-5.0) Micro Micro Microbiology 01/16/17 Blood Culture - Preliminary, Resulted NO GROWTH AFTER 2 DAYS Review of Systems Constitutional: yes: weakness, alert, oriented Ears/Nose/Throat: Yes: no symptom reported Eyes: Yes: no symptom reported Genitourinary: Yes: no symptom reported Musculoskeletal: Yes: muscle pain Skin: Yes no symptom reported Psychiatric/Neurological: Yes: no symptom reported Physical Exam General Appearance: no apparent distress Skin: warm Respiratory: bilateral CTA Heart: S1S2, RRR Abdomen: soft, bowel sounds present Extremities: pulses present, no edema Neurology: alert, oriented, follow commands Assessment Assessment IMP AFIB RVR ANEMIA HTN ESRD DECONDITIONING AV AND MV ENDOCARDITIS PLAN HD TODAY UF TO DW ENC PO INTAKE ANTIBIOTICS MONTEZ COBB MD Jan 18, 2017 15:10
[2017-01-18] MEDS ORDERED: GENTAMICIN SULFATE 270 MG in IV NORMAL SALINE 100ML 100 ML IV ONE (16:00)
[2017-01-18] MEDS ORDERED: VANCOMYCIN 500 MG in IV NORMAL SALINE 100ML 100 ML IV SCH (16:00)
[2017-01-18] MEDS: HEPARIN 25,000UTS/500ML PREMIX 500 ML IV PRN (21:02)
[2017-01-18] MEDS ORDERED: TOTAL PARENTERAL NUTRITION 1,424.9987 ML, AMINO ACIDS 10 % 60 GM, DEXTROSE 70 % IN WATE... IV SCH ×10 (22:00)
[2017-01-18] MEDS: FOLIC/VIT B COMP W-C (RENAL) TABLET. PO SCH (22:36)
[2017-01-18] MEDS: oxyCODONE/APAP 5/325 1 TAB TABLET PO PRN (22:37)
[2017-01-19] VITALS (25 sets, daily range): BP systolic 66–147; BP diastolic 30–76
[2017-01-19] MEDS: AMPICILLIN SODIUM 2 GM in IV NORMAL SALINE 100ML 100 ML IV SCH ×3 (05:55→21:18)
[2017-01-19 06:42] LABS: ALBUMIN 2.5 g/dL (3.4-5.0); CALCIUM 8.1 mg/dL (8.5-10.1); CREATININE 3.5 mg/dL (0.6-1.0); GFR 12.8; PHOSPHORUS 4.4 mg/dL (2.6-4.7); POTASSIUM 4.2 mmol/L (3.5-5.1)
[2017-01-19] MEDS: AMINO AC 3%/ELECTROLYTE/GLYCER 1,000 ML IV SCH (07:00)
[2017-01-19] MEDS: ANTI-COAG MONITOR BY PHARMACY. MC PRN (07:41)
[2017-01-19] MEDS: TPN PER PHARMACY MC PRN (07:43)
[2017-01-19] MEDS: ALLOPURINOL 100 MG TABLET. PO SCH (08:40)
[2017-01-19] MEDS: PANTOPRAZOLE 40 MG TABLET.DR. PO SCH (08:40)
[2017-01-19] MEDS: GABAPENTIN 100 MG CAPSULE. PO SCH ×2 (08:41→21:17)
[2017-01-19] MEDS: OMEGA-3 FATTY ACIDS/FISH OIL 1,000 MG CAPSULE. PO SCH (08:41)
[2017-01-19] MEDS: MELOXICAM 7.5 MG TABLET PO SCH (08:41)
[2017-01-19] MEDS: PROPAFENONE 150 MG TABLET. PO SCH ×2 (08:41→21:17)
[2017-01-19] MEDS: CALCIUM ACETATE 667 MG CAPSULE PO SCH ×3 (08:42→17:00)
[2017-01-19] MEDS: ASPIRIN ENTERIC COATED 81 MG TABLET.DR. PO SCH (08:45)
--- NOTE | 2017-01-19 09:35 | PDOC ---
Infectious Disease Note Subjective Subjective Feeling ok ROS ROS GEN: Denies fevers, chills, sweats CV: Denies chest pain RESP: Denies shortness of air, cough GI: Denies n/v/d Vital Sign Vital Signs Vital Signs Date Time Temp Pulse Resp B/P (MAP) Pulse Ox O2 Delivery O2 Flow Rate FiO2 01/19/17 09:00 97 14 125/42 (69) 100 Nasal Cannula 2.0 01/19/17 08:00 98.1 98.1 Physical Exam PHYSICAL EXAM GENERAL: Awake, tired appearance HEENT: Oral cavity, dry. Dentures in place LUNGS: Clear HEART: S1S2, no murmur appreciated, irregular, pacemaker ABD: Soft, NT, BS active EXT: No edema, no cyanosis. 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 (01/15) clean Labs Lab Laboratory Tests Test 01/18/17 15:05 01/19/17 05:48 Random Gentamicin Level 1.5 mcg/mL Heparin Anti-Xa Act, Unfractionated 0.41 IU/mL (0.30-0.70) Sodium Level 134 mmol/L (136-145) Potassium Level 4.2 mmol/L (3.5-5.1) Chloride Level 96 mmol/L (98-107) Carbon Dioxide Level 29 mmol/L (21-32) Anion Gap 9 (6-14) Blood Urea Nitrogen 22 mg/dL (7-20) Creatinine 3.5 mg/dL (0.6-1.0) Estimated GFR (Cockcroft-Gault) 12.8 Glucose Level 166 mg/dL (70-99) Calcium Level 8.1 mg/dL (8.5-10.1) Phosphorus Level 4.4 mg/dL (2.6-4.7) Albumin 2.5 g/dL (3.4-5.0) Triglycerides Level 73 mg/dL (0-150) Micro 01/16. BLOOD CULTURE Preliminary NO GROWTH AFTER 3 DAY 01/14. BLOOD CULT RESULT 1 Final Enterococcus faecalis Recovered from aerobic and anaerobic bottles. 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 -TTE AV + mass on noncoronary cusp AV. MARY JANE 2 x 1 x 2 cm on AV & small mobile veg MV -Repeat BC NGTD, 01/16 Hypotension, on Levophed gtt Abnormal splenic lesion CT- c/w hemangioma; appreciate surgery's input Leukocytosis, trending down Encephalopathy, better Generalized aches - no history of PMR or fibromyalgia per . no joint inflammation Afib RVR + MRSA screen Recent UTI H/o C-diff Thrombocytopenia CKD/HD Plan Plan of Care Ampicillin (started 01/17) and gent for synergy Gent. Last dose 01/18 Gent trough 1.5 Monitor WBC, Temp f/u BC D/w Critically ill Attending Co-Sign The patient was seen and interviewed as well as examined at the bedside. The chart was reviewed. The case was discussed. Agree with the plan of care. ROBERTO BEAVERS APRN Jan 19, 2017 09:35 YENIFER ACOSTA MD Jan 19, 2017 13:11
--- NOTE | 2017-01-19 13:47 | PDOC ---
PROGRESS NOTES Assessment Assessment Metabolic encephalopathy. Confusion. Generalized weakness. New onset Afib. CHF Renal failure on dialysis. Sepsis. DM HTN Anemia. Gout Obesity RECOMMENDATIONS/PLAN: Treat medical and cardiac disease. OT/PT Discussed with her again and grand son in detail at bedside in ICU on 01/19/17. EEG on 01/15/17: Abnormal in consistent with metabolic encephalopathy. HISTORY OF THE PRESENT ILLNESS: 71-y-old female patient with above medical and cardiac diseases was noted MS changes, confusional episodes and generalized weakness, so Neurology was requested for consultation. no focalized sensory of motor deficits noted. She stated not doing well on 01/19/17. Past Medical History Cardiovascular: HTN, Other Heme/Onc: Anemia NOS Rheumatologic: Gout Renal/: Chronic renal failure Endocrine: Diabetes, Hyperparathyroidism, Other Past Surgical History Pacemaker, Cholecystectomy, Hysterectomy, Other Family History No Significant Social History ALCOHOL: none Drugs: None ALLERGY: Reviewed. MEDICATIONS: Refer to MAR REVIEW OF SYSTEMS: Constitutional: No malnutrition, weight loss, cachexia. Head: No recent traumatic brain or head injury. Skin: No edema, or rash. Ear: No infection. Eyes: No vision loss or color blindness. Nose: No bleeding or purulent discharges. Hearing: Hearing decrease. Neck: No injury. Breast: No history of cancer, masses,or discharges. Cardiac: New onset AFib, Pacemaker Placement, HTN. Pulmonary: No COPD. GI: No GI ulcer, GI bleeding. Urinary/genital: UTI. Endocrinologic: Diabetes Mellitus, obesity. Skeletomuscular: Generalized weakness. Neurological: see HP. Psychiatric: Denies drug use/abuse. Otherwise, not [id number] review of systems. PHYSICAL EXAMINATION: General appearance is in subacute distress. HEENT: Normocephalic and nontraumatic. Eyes, nose, ears, and throat are unremarkable. Neck is supple. No lymphadenopathy. No crepitus. Cardiovascular: S1, S2, irregular rate and rhythm. Pulmonary: Clear to auscultation bilaterally. Abdomen: Bowel sounds are positive. Extremities: No rash, lesions, or edema. No restriction of range of motion NEUROLOGICAL EXAMINATION: Awake. Not fully oriented to time, but knows place and person. PERRL. EOMI, but slow. CN: no acute focal findings. Muscle tone: within normal. Muscle strength: 4+ UE, 3+ LE DTR: 1-2 Plantar reflex: Flexor response bilaterally Gait: not examined in bed. Sensory exam: no abnormal findings. Not able to access cerebellar signs this time. F-T-N test not performed due to not follow commands. Objective Objective Vital Signs Date Time Temp Pulse Resp B/P (MAP) Pulse Ox O2 Delivery O2 Flow Rate FiO2 01/19/17 12:00 98.8 86 14 98/61 (73) 100 Nasal Cannula 2.0 98.8 Vitals Signs Vitals VS - Last 72 Hours, by Label Date Time Temp Pulse Resp B/P (MAP) Pulse Ox O2 Delivery O2 Flow Rate FiO2 01/19/17 12:00 98.8 86 14 98/61 (73) 100 Nasal Cannula 2.0 98.8 01/19/17 10:00 76 10 124/67 (86) 100 Nasal Cannula 2.0 01/19/17 09:00 97 14 125/42 (69) 100 Nasal Cannula 2.0 01/19/17 08:41 80 116/35 01/19/17 08:00 98.1 11 14 108/59 (75) 100 Nasal Cannula 2.0 98.1 01/19/17 07:00 104 11 131/47 (75) 97 Nasal Cannula 2.0 01/19/17 06:00 99 15 99/41 (60) 100 Nasal Cannula 2.0 01/19/17 05:45 88 16 86/44 (58) 100 Nasal Cannula 2.0 01/19/17 04:00 Nasal Cannula 2.0 01/19/17 04:00 98.1 91 16 100/66 (77) 100 Nasal Cannula 2.0 98.1 01/19/17 03:00 86 15 91/38 (55) 97 Nasal Cannula 2.0 01/19/17 02:15 84 15 92/45 (61) 94 Nasal Cannula 2.0 01/19/17 02:00 80 15 91/39 (56) 100 Nasal Cannula 2.0 01/19/17 01:00 76 15 83/44 (57) 100 Nasal Cannula 2.0 01/19/17 00:31 Nasal Cannula 2.0 01/19/17 00:15 74 12 71/37 (48) 100 Nasal Cannula 2.0 01/19/17 00:06 83 12 66/30 (42) 100 Nasal Cannula 2.0 01/18/17 23:37 12 100 Nasal Cannula 4.0 01/18/17 23:00 98.1 86 15 104/49 (67) 100 Nasal Cannula 2.0 98.1 01/18/17 22:37 12 100 Nasal Cannula 2.0 01/18/17 22:36 96 95/54 01/18/17 22:00 88 12 109/44 (65) 100 Nasal Cannula 2.0 01/18/17 21:00 88 12 117/61 (79) 100 Nasal Cannula 2.0 01/18/17 20:30 Nasal Cannula 2.0 01/18/17 20:00 98.1 90 14 99/47 (64) 100 Nasal Cannula 2.0 98.1 01/18/17 19:45 96 14 120/51 (74) 100 Nasal Cannula 2.0 01/18/17 19:15 86 14 102/45 (64) 100 Nasal Cannula 2.0 01/18/17 18:00 69 90/39 (56) 100 Nasal Cannula 2.0 01/18/17 17:00 91 108/44 (65) 100 Nasal Cannula 2.0 01/18/17 16:00 Nasal Cannula 2.0 01/18/17 16:00 97.5 72 91/40 (57) 100 Nasal Cannula 2.0 97.5 01/18/17 15:00 84 98/50 (66) 100 Nasal Cannula 2.0 01/18/17 14:00 94 104/69 (81) 100 Nasal Cannula 2.0 01/18/17 13:42 104 107/38 01/18/17 13:00 86 107/38 (61) 100 Nasal Cannula 2.0 01/18/17 12:41 20 Nasal Cannula 2.0 01/18/17 12:11 19 Nasal Cannula 2.0 01/18/17 12:00 98.7 118 93/48 (63) 100 Nasal Cannula 2.0 98.7 01/18/17 12:00 Nasal Cannula 2.0 01/18/17 11:00 92 115/53 (73) 100 Nasal Cannula 2.0 01/18/17 10:00 94 98/34 (55) 100 Nasal Cannula 2.0 01/18/17 09:00 79 18 102/50 (67) 100 Nasal Cannula 2.0 01/18/17 08:00 Nasal Cannula 2.0 01/18/17 08:00 97.7 79 18 105/43 (63) 100 Nasal Cannula 2.0 97.7 01/18/17 07:00 84 17 84/47 (59) 100 Nasal Cannula 2.0 Laboratory Laboratory Laboratory Tests Test 01/18/17 15:05 01/19/17 05:48 Random Gentamicin Level 1.5 mcg/mL Heparin Anti-Xa Act, Unfractionated 0.41 IU/mL (0.30-0.70) Sodium Level 134 mmol/L (136-145) Potassium Level 4.2 mmol/L (3.5-5.1) Chloride Level 96 mmol/L (98-107) Carbon Dioxide Level 29 mmol/L (21-32) Anion Gap 9 (6-14) Blood Urea Nitrogen 22 mg/dL (7-20) Creatinine 3.5 mg/dL (0.6-1.0) Estimated GFR (Cockcroft-Gault) 12.8 Glucose Level 166 mg/dL (70-99) Calcium Level 8.1 mg/dL (8.5-10.1) Phosphorus Level 4.4 mg/dL (2.6-4.7) Albumin 2.5 g/dL (3.4-5.0) Triglycerides Level 73 mg/dL (0-150) Microbiology 01/16/17 Blood Culture - Preliminary, Resulted NO GROWTH AFTER 3 DAYS Medication Medications Current Medications Gentamicin Sulfate 270 mg/ Sodium Chloride 106.75 ml @ 106.75 mls/hr 1X ONCE IV Last administered on 01/18/17t 16:51; Start 01/18/17 at 16:00; Stop 01/18/17 at 16:59; Status DC Sodium Chloride 90 meq/Potassium Chloride 50 meq/ Potassium Phosphate 13.6 mmol/ Magnesium Sulfate 10 meq/ Calcium Gluconate 10 meq/ Multivitamins 10 ml/Chromium / Copper/Manganese/ Seleni/Zn 1 ml/ Total Parenteral Nutrition/Amino Acids/ Dextrose/ Fat Emulsion Intravenous 1,320 ml @ 55 mls/hr TPN CONT IV ; Start at 22:00; Stop 01/20/17 at 21:59 Sodium Chloride 90 meq/Potassium Chloride 50 meq/ Potassium Phosphate 13.6 mmol/ Magnesium Sulfate 10 meq/ Calcium Gluconate 10 meq/ Multivitamins 10 ml/Chromium / Copper/Manganese/ Seleni/Zn 1 ml/ Total Parenteral Nutrition/Amino Acids/ Dextrose/ Fat Emulsion Intravenous 1,512 ml @ 63 mls/hr TPN CONT IV Last administered on 01/18/17t 20:59; Start 01/18/17 at 22:00; Stop 01/19/17 at 21:59 Vancomycin HCl 500 mg/Sodium Chloride 100 ml @ 100 mls/hr QTUTHSA IV ; Start at 16:00; Stop 01/18/17 at 16:00; Status DC Comment Review of Relevant I have reviewed the following items michelle (where applicable) has been applied. TUNG COX MD Jan 19, 2017 13:47
--- NOTE | 2017-01-19 14:03 | PDOC ---
Renal-Progress Notes Subjective Notes Notes FEELING BETTER History of Present Illness Hx of present illness IMPROVED Vitals Vitals Vital Signs Date Time Temp Pulse Resp B/P (MAP) Pulse Ox O2 Delivery O2 Flow Rate FiO2 01/19/17 12:00 98.8 86 14 98/61 (73) 100 Nasal Cannula 2.0 98.8 Weight Weight [ ] Labs Labs Laboratory Tests Test 01/18/17 15:05 01/19/17 05:48 Random Gentamicin Level 1.5 mcg/mL Heparin Anti-Xa Act, Unfractionated 0.41 IU/mL (0.30-0.70) Sodium Level 134 mmol/L (136-145) Potassium Level 4.2 mmol/L (3.5-5.1) Chloride Level 96 mmol/L (98-107) Carbon Dioxide Level 29 mmol/L (21-32) Anion Gap 9 (6-14) Blood Urea Nitrogen 22 mg/dL (7-20) Creatinine 3.5 mg/dL (0.6-1.0) Estimated GFR (Cockcroft-Gault) 12.8 Glucose Level 166 mg/dL (70-99) Calcium Level 8.1 mg/dL (8.5-10.1) Phosphorus Level 4.4 mg/dL (2.6-4.7) Albumin 2.5 g/dL (3.4-5.0) Triglycerides Level 73 mg/dL (0-150) Micro Micro Microbiology 01/16/17 Blood Culture - Preliminary, Resulted NO GROWTH AFTER 3 DAYS Review of Systems Constitutional: yes: weakness, alert, oriented Ears/Nose/Throat: Yes: no symptom reported Eyes: Yes: no symptom reported Genitourinary: Yes: no symptom reported Musculoskeletal: Yes: muscle pain Skin: Yes no symptom reported Psychiatric/Neurological: Yes: no symptom reported Physical Exam General Appearance: no apparent distress Skin: warm Respiratory: bilateral CTA Heart: S1S2, RRR Abdomen: soft, bowel sounds present Extremities: pulses present, no edema Neurology: alert, oriented, follow commands Assessment Assessment IMP AFIB RVR ANEMIA HTN ESRD DECONDITIONING AV AND MV ENDOCARDITIS PLAN HD FRIDAY ENC PO INTAKE ANTIBIOTICS D/W ID TPN FOR NOW UPDATED MONTEZ COBB MD Jan 19, 2017 14:03
--- NOTE | 2017-01-19 15:30 | PDOC ---
Provider Note Provider Note Covering for Dr. Jean. Patient was up in chair. Sultana had had about 25% of her meal. No complaints at present except fatigue. Continues to need a small amount of Levophed to maintain her blood pressure. She is in atrial fibrillation with a heart rate of 80-90 bpm. Lungs are clear. Abdomen soft. No edema of the legs. Discussed with the . Discussed with the nurse. We will decrease the rate of the TPN and see if her appetite and oral intake would improve. If it does will discontinue TPN. Maintain the small dose of Levophed for now. She is on a heparin drip. Check pro time and initiate Coumadin. She is not a very good candidate for one of the newer anticoagulants. Dr. Jean returns on 01/21/17. KIRIT SHARMA MD Jan 19, 2017 15:30
[2017-01-19] MEDS: HEPARIN 25,000UTS/500ML PREMIX 500 ML IV PRN (17:57)
[2017-01-19] MEDS: FOLIC/VIT B COMP W-C (RENAL) TABLET. PO SCH (21:17)
[2017-01-19] MEDS: fentaNYL PF VIAL 100 MCG/2 ML VIAL IV PRN (21:21)
[2017-01-19] MEDS ORDERED: DEXTROSE 70% IV SCH ×10 (22:00)
[2017-01-19] MEDS ORDERED: TOTAL PARENTERAL NUTRITION IV SCH ×10 (22:00)
[2017-01-19] MEDS ORDERED: AMINO ACIDS IV SCH ×10 (22:00)
[2017-01-19] MEDS ORDERED: [UNRECOGNIZED DRUG - OTHER] IV SCH ×10 (22:00)
[2017-01-20] VITALS (24 sets, daily range): BP systolic 79–134; BP diastolic 36–64
[2017-01-20] MEDS: fentaNYL PF VIAL 100 MCG/2 ML VIAL IV PRN ×3 (00:12→16:29)
[2017-01-20] MEDS: AMPICILLIN SODIUM 2 GM in IV NORMAL SALINE 100ML 100 ML IV SCH ×3 (06:01→22:07)
[2017-01-20 06:32] LABS: INR 1.4 (0.8-1.1); PROTHROMBIN TIME PATIENT 16.1 SEC (11.7-14.0)
[2017-01-20 06:40] LABS: HEMATOCRIT 30.1 % (36.0-47.0); HEMOGLOBIN 9.7 g/dL (12.0-15.5); RED BLOOD COUNT 2.72 x10^6/uL (3.50-5.40); RED CELL DISTRIBUTION WIDTH 19.5 % (11.5-14.5); WHITE BLOOD COUNT 16.3 x10^3/uL (4.0-11.0)
[2017-01-20 06:59] LABS: ALBUMIN 2.4 g/dL (3.4-5.0); CALCIUM 8.5 mg/dL (8.5-10.1); CREATININE 4.1 mg/dL (0.6-1.0); GFR 10.7; PHOSPHORUS 5.1 mg/dL (2.6-4.7); POTASSIUM 5.1 mmol/L (3.5-5.1)
--- NOTE | 2017-01-20 08:15 | PDOC ---
Infectious Disease Note Subjective Subjective Feeling better, very weak ROS ROS GEN: Denies fevers, chills, sweats CV: Denies chest pain RESP: Denies shortness of air, cough GI: Denies n/v/d NEURO: Denies confusion, dizziness Vital Sign Vital Signs Vital Signs Date Time Temp Pulse Resp B/P (MAP) Pulse Ox O2 Delivery O2 Flow Rate FiO2 01/20/17 06:00 80 13 115/42 (66) 100 Nasal Cannula 2.0 01/20/17 04:00 98.4 98.4 Physical Exam PHYSICAL EXAM GENERAL: NAD, Alert HEENT: PERRL, OC/OP NECK: Supple, no JVD, no LN LUNGS: Clear HEART: S1S2, no gallop, no murmur ABD: Soft, NT, no organomegaly, no rebound EXT: No edema, no cyanosis 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, 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, no focal neurologic deficit SKIN: No rash IV: ok Labs Lab Laboratory Tests Test 01/20/17 06:10 White Blood Count 16.3 x10^3/uL (4.0-11.0) Red Blood Count 2.72 x10^6/uL (3.50-5.40) Hemoglobin 9.7 g/dL (12.0-15.5) Hematocrit 30.1 % (36.0-47.0) Mean Corpuscular Volume 111 fL (79-100) Mean Corpuscular Hemoglobin 36 pg (25-35) Mean Corpuscular Hemoglobin Concent 32 g/dL (31-37) Red Cell Distribution Width 19.5 % (11.5-14.5) Platelet Count 58 x10^3/uL (140-400) Prothrombin Time 16.1 SEC (11.7-14.0) Prothromb Time International Ratio 1.4 (0.8-1.1) Heparin Anti-Xa Act, Unfractionated 0.48 IU/mL (0.30-0.70) Sodium Level 132 mmol/L (136-145) Potassium Level 5.1 mmol/L (3.5-5.1) Chloride Level 96 mmol/L (98-107) Carbon Dioxide Level 25 mmol/L (21-32) Anion Gap 11 (6-14) Blood Urea Nitrogen 31 mg/dL (7-20) Creatinine 4.1 mg/dL (0.6-1.0) Estimated GFR (Cockcroft-Gault) 10.7 Glucose Level 175 mg/dL (70-99) Calcium Level 8.5 mg/dL (8.5-10.1) Phosphorus Level 5.1 mg/dL (2.6-4.7) Magnesium Level 2.4 mg/dL (1.8-2.4) Albumin 2.4 g/dL (3.4-5.0) Objective Assessment Enterococcus sepsis, 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 -TTE AV + mass on noncoronary cusp AV. MARY JANE 2 x 1 x 2 cm on AV & small mobile veg MV -Repeat BC NGTD, 01/16 Hypotension, on Levophed gtt Abnormal splenic lesion CT- c/w hemangioma; appreciate surgery's input Leukocytosis, trending down Encephalopathy, better Generalized aches - no history of PMR or fibromyalgia per . no joint inflammation Afib RVR + MRSA screen Recent UTI H/o C-diff Thrombocytopenia CKD/HD Plan Plan of Care Ampicillin (started 01/17) and gent for synergy Gent. Last dose 01/18 Gent trough 1.5 Monitor WBC, Temp f/u BC D/w in detail pt/ot Critically ill YENIFER ACOSTA MD Jan 20, 2017 08:15
[2017-01-20] MEDS: ANTI-COAG MONITOR BY PHARMACY. MC PRN (08:28)
[2017-01-20] MEDS: MELOXICAM 7.5 MG TABLET PO SCH (09:10)
[2017-01-20] MEDS: PROPAFENONE 150 MG TABLET. PO SCH ×2 (09:10→20:34)
[2017-01-20] MEDS: CALCIUM ACETATE 667 MG CAPSULE PO SCH ×3 (09:11→16:16)
[2017-01-20] MEDS: ASPIRIN ENTERIC COATED 81 MG TABLET.DR. PO SCH (09:11)
[2017-01-20] MEDS: ALLOPURINOL 100 MG TABLET. PO SCH (09:11)
[2017-01-20] MEDS: GABAPENTIN 100 MG CAPSULE. PO SCH ×2 (09:11→20:32)
[2017-01-20] MEDS: OMEGA-3 FATTY ACIDS/FISH OIL 1,000 MG CAPSULE. PO SCH (09:11)
[2017-01-20] MEDS: PANTOPRAZOLE 40 MG TABLET.DR. PO SCH (09:16)
--- NOTE | 2017-01-20 10:52 | PDOC ---
Renal-Progress Notes Subjective Notes Notes STILL WEAK History of Present Illness Hx of present illness STABLE Vitals Vitals Vital Signs Date Time Temp Pulse Resp B/P (MAP) Pulse Ox O2 Delivery O2 Flow Rate FiO2 01/20/17 10:41 12 Room Air 01/20/17 10:00 78 107/38 (61) 100 2.0 01/20/17 08:00 97.6 97.6 Weight Weight [ ] Labs Labs Laboratory Tests Test 01/20/17 06:10 White Blood Count 16.3 x10^3/uL (4.0-11.0) Red Blood Count 2.72 x10^6/uL (3.50-5.40) Hemoglobin 9.7 g/dL (12.0-15.5) Hematocrit 30.1 % (36.0-47.0) Mean Corpuscular Volume 111 fL (79-100) Mean Corpuscular Hemoglobin 36 pg (25-35) Mean Corpuscular Hemoglobin Concent 32 g/dL (31-37) Red Cell Distribution Width 19.5 % (11.5-14.5) Platelet Count 58 x10^3/uL (140-400) Prothrombin Time 16.1 SEC (11.7-14.0) Prothromb Time International Ratio 1.4 (0.8-1.1) Heparin Anti-Xa Act, Unfractionated 0.48 IU/mL (0.30-0.70) Sodium Level 132 mmol/L (136-145) Potassium Level 5.1 mmol/L (3.5-5.1) Chloride Level 96 mmol/L (98-107) Carbon Dioxide Level 25 mmol/L (21-32) Anion Gap 11 (6-14) Blood Urea Nitrogen 31 mg/dL (7-20) Creatinine 4.1 mg/dL (0.6-1.0) Estimated GFR (Cockcroft-Gault) 10.7 Glucose Level 175 mg/dL (70-99) Calcium Level 8.5 mg/dL (8.5-10.1) Phosphorus Level 5.1 mg/dL (2.6-4.7) Magnesium Level 2.4 mg/dL (1.8-2.4) Albumin 2.4 g/dL (3.4-5.0) Micro Micro Microbiology 01/16/17 Blood Culture - Preliminary, Resulted NO GROWTH AFTER 4 DAYS Review of Systems Constitutional: yes: weakness, alert, oriented Ears/Nose/Throat: Yes: no symptom reported Eyes: Yes: no symptom reported Genitourinary: Yes: no symptom reported Musculoskeletal: Yes: muscle pain Skin: Yes no symptom reported Psychiatric/Neurological: Yes: no symptom reported Physical Exam General Appearance: no apparent distress Skin: warm Respiratory: bilateral CTA Heart: S1S2, RRR Abdomen: soft, bowel sounds present Extremities: pulses present, no edema Neurology: alert, oriented, follow commands Assessment Assessment IMP AFIB RVR ANEMIA HTN ESRD DECONDITIONING AV AND MV ENDOCARDITIS LEUCOCYTOSIS PLAN HD TOMORROW ENC PO INTAKE ANTIBIOTICS TPN FOR NOW UPDATED MONTEZ COBB MD Jan 20, 2017 10:52
--- NOTE | 2017-01-20 12:50 | PDOC ---
Provider Note Provider Note Covering for Dr. Jena. She ate a little better today but not adequately. Dietary advise us as to continue the TPN. Blood pressure 100/70 off vasopressors and will try to maintain without vasopressors and observe in ICU. Atrial fibrillation with a controlled ventricular response. She is on IV heparin and consider initiating Coumadin today. Continue to observe in ICU for today. Dr. Jean returns tomorrow. KIRIT SHARMA MD Jan 20, 2017 12:50
[2017-01-20] MEDS: TPN PER PHARMACY MC PRN (13:14)
--- NOTE | 2017-01-20 14:55 | PDOC ---
PROGRESS NOTES Assessment Assessment Metabolic encephalopathy. Confusion. Generalized weakness. New onset Afib. CHF Renal failure on dialysis. Sepsis. DM HTN Anemia. Gout Obesity RECOMMENDATIONS/PLAN: Treat medical and cardiac disease. Repeat HCT w/o contrast. Discussed with her again and grand son in detail at bedside in ICU on 01/20/17. EEG on 01/15/17: Abnormal in consistent with metabolic encephalopathy. HISTORY OF THE PRESENT ILLNESS: 71-y-old female patient with above medical and cardiac diseases was noted MS changes, confusional episodes and generalized weakness, so Neurology was requested for consultation. no focalized sensory of motor deficits noted. Her condition seemed decreased and not feeling well since 01/19/17. Past Medical History Cardiovascular: HTN, Other Heme/Onc: Anemia NOS Rheumatologic: Gout Renal/: Chronic renal failure Endocrine: Diabetes, Hyperparathyroidism, Other Past Surgical History Pacemaker, Cholecystectomy, Hysterectomy, Other Family History No Significant Social History ALCOHOL: none Drugs: None ALLERGY: Reviewed. MEDICATIONS: Refer to MAR REVIEW OF SYSTEMS: Constitutional: No malnutrition, weight loss, cachexia. Head: No recent traumatic brain or head injury. Skin: No edema, or rash. Ear: No infection. Eyes: No vision loss or color blindness. Nose: No bleeding or purulent discharges. Hearing: Hearing decrease. Neck: No injury. Breast: No history of cancer, masses,or discharges. Cardiac: New onset AFib, Pacemaker Placement, HTN. Pulmonary: No COPD. GI: No GI ulcer, GI bleeding. Urinary/genital: UTI. Endocrinologic: Diabetes Mellitus, obesity. Skeletomuscular: Generalized weakness. Neurological: see HP. Psychiatric: Denies drug use/abuse. Otherwise, not [id number] review of systems. PHYSICAL EXAMINATION: General appearance is in subacute distress. HEENT: Normocephalic and nontraumatic. Eyes, nose, ears, and throat are unremarkable. Neck is supple. No lymphadenopathy. No crepitus. Cardiovascular: S1, S2, irregular rate and rhythm. Pulmonary: Clear to auscultation bilaterally. Abdomen: Bowel sounds are positive. Extremities: No rash, lesions, or edema. No restriction of range of motion NEUROLOGICAL EXAMINATION: Awake. Not fully oriented to time, but knows place and person. PERRL. EOMI, but slow. CN: no acute focal findings. Muscle tone: within normal. Muscle strength: 4+ UE, 3+ LE DTR: 1-2 Plantar reflex: Flexor response bilaterally Gait: not examined in bed. Sensory exam: no abnormal findings. Not able to access cerebellar signs this time. F-T-N test not performed due to not follow commands. Objective Objective Vital Signs Date Time Temp Pulse Resp B/P (MAP) Pulse Ox O2 Delivery O2 Flow Rate FiO2 01/20/17 13:13 72 14 124/58 (80) 100 Nasal Cannula 2.0 01/20/17 12:00 98.2 98.2 Vitals Signs Vitals VS - Last 72 Hours, by Label Date Time Temp Pulse Resp B/P (MAP) Pulse Ox O2 Delivery O2 Flow Rate FiO2 01/20/17 13:13 72 14 124/58 (80) 100 Nasal Cannula 2.0 01/20/17 12:00 Nasal Cannula 2.0 01/20/17 12:00 98.2 80 14 95/50 (65) 92 Nasal Cannula 98.2 01/20/17 11:56 Room Air 01/20/17 11:03 81 15 111/60 (77) 96 Nasal Cannula 01/20/17 10:41 12 Room Air 01/20/17 10:00 78 14 107/38 (61) 100 Nasal Cannula 2.0 01/20/17 09:10 79 110/45 01/20/17 09:00 66 11 134/64 (87) 100 Nasal Cannula 2.0 01/20/17 08:00 Nasal Cannula 2.0 01/20/17 08:00 97.6 80 21 92/47 (62) 100 Nasal Cannula 2.0 97.6 01/20/17 07:00 66 13 93/46 (62) 100 Nasal Cannula 2.0 01/20/17 06:00 80 13 115/42 (66) 100 Nasal Cannula 2.0 01/20/17 05:00 89 13 94/36 (55) 100 Nasal Cannula 2.0 01/20/17 04:00 Nasal Cannula 2.0 01/20/17 04:00 98.4 77 13 94/42 (59) 100 Nasal Cannula 2.0 98.4 01/20/17 03:00 70 12 94/52 (66) 100 Nasal Cannula 2.0 01/20/17 02:00 83 11 79/43 (55) 100 Nasal Cannula 2.0 01/20/17 01:00 82 11 85/46 (59) 100 Nasal Cannula 2.0 01/20/17 00:43 10 100 2.0 01/20/17 00:12 20 100 Nasal Cannula 2.0 01/20/17 00:00 97.6 88 10 108/47 (67) 100 Nasal Cannula 2.0 97.6 01/20/17 00:00 Nasal Cannula 2.0 01/19/17 23:00 82 12 87/43 (58) 100 Nasal Cannula 2.0 01/19/17 22:00 90 10 91/46 (61) 100 Nasal Cannula 2.0 01/19/17 21:21 18 100 Nasal Cannula 2.0 01/19/17 21:17 93 138/53 01/19/17 21:00 93 11 147/48 (81) 100 Nasal Cannula 2.0 01/19/17 20:00 Nasal Cannula 2.0 01/19/17 20:00 98.2 85 15 107/76 (86) 100 Nasal Cannula 2.0 98.2 01/19/17 19:00 97 16 99/57 (71) 100 Nasal Cannula 2.0 01/19/17 18:00 77 15 138/49 (78) 100 Nasal Cannula 2.0 01/19/17 17:00 90 16 126/55 (78) 100 Nasal Cannula 2.0 01/19/17 16:00 98.6 92 17 138/49 (78) 100 Nasal Cannula 2.0 98.6 01/19/17 16:00 Nasal Cannula 2.0 01/19/17 15:00 88 17 122/45 (70) 100 Nasal Cannula 2.0 01/19/17 14:00 88 20 109/60 (76) 100 Nasal Cannula 2.0 01/19/17 13:00 86 21 103/62 (76) 100 Nasal Cannula 2.0 01/19/17 12:00 Nasal Cannula 2.0 01/19/17 12:00 98.8 86 14 98/61 (73) 100 Nasal Cannula 2.0 98.8 01/19/17 10:00 76 10 124/67 (86) 100 Nasal Cannula 2.0 01/19/17 09:00 97 14 125/42 (69) 100 Nasal Cannula 2.0 01/19/17 08:41 80 116/35 01/19/17 08:00 Nasal Cannula 2.0 01/19/17 08:00 98.1 11 14 108/59 (75) 100 Nasal Cannula 2.0 98.1 01/19/17 07:00 104 11 131/47 (75) 97 Nasal Cannula 2.0 Laboratory Laboratory Laboratory Tests Test 01/20/17 06:10 White Blood Count 16.3 x10^3/uL (4.0-11.0) Red Blood Count 2.72 x10^6/uL (3.50-5.40) Hemoglobin 9.7 g/dL (12.0-15.5) Hematocrit 30.1 % (36.0-47.0) Mean Corpuscular Volume 111 fL (79-100) Mean Corpuscular Hemoglobin 36 pg (25-35) Mean Corpuscular Hemoglobin Concent 32 g/dL (31-37) Red Cell Distribution Width 19.5 % (11.5-14.5) Platelet Count 58 x10^3/uL (140-400) Prothrombin Time 16.1 SEC (11.7-14.0) Prothromb Time International Ratio 1.4 (0.8-1.1) Heparin Anti-Xa Act, Unfractionated 0.48 IU/mL (0.30-0.70) Sodium Level 132 mmol/L (136-145) Potassium Level 5.1 mmol/L (3.5-5.1) Chloride Level 96 mmol/L (98-107) Carbon Dioxide Level 25 mmol/L (21-32) Anion Gap 11 (6-14) Blood Urea Nitrogen 31 mg/dL (7-20) Creatinine 4.1 mg/dL (0.6-1.0) Estimated GFR (Cockcroft-Gault) 10.7 Glucose Level 175 mg/dL (70-99) Calcium Level 8.5 mg/dL (8.5-10.1) Phosphorus Level 5.1 mg/dL (2.6-4.7) Magnesium Level 2.4 mg/dL (1.8-2.4) Albumin 2.4 g/dL (3.4-5.0) Microbiology 01/16/17 Blood Culture - Preliminary, Resulted NO GROWTH AFTER 4 DAYS Medication Medications Current Medications Sodium Chloride 90 meq/Potassium Chloride 50 meq/ Magnesium Sulfate 10 meq/ Calcium Gluconate 10 meq/ Multivitamins 10 ml/Chromium/ Copper/Manganese/ Seleni /Zn 1 ml/ Total Parenteral Nutrition/Amino Acids/Dextrose/ Fat Emulsion Intravenous 1,200 ml @ 50 mls/hr TPN CONT IV ; Start 01/20/17 at 22:00; Stop at 21:59 Sodium Chloride 90 meq/Potassium Chloride 50 meq/ Potassium Phosphate 13.6 mmol/ Magnesium Sulfate 10 meq/ Calcium Gluconate 10 meq/ Multivitamins 10 ml/Chromium / Copper/Manganese/ Seleni/Zn 1 ml/ Total Parenteral Nutrition/Amino Acids/ Dextrose/ Fat Emulsion Intravenous 1,320 ml @ 55 mls/hr TPN CONT IV Last administered on 01/19/17 21:18; Start 01/19/17 at 22:00; Stop 01/20/17 at 21:59 Warfarin Sodium (Coumadin Per Physician) 1 each PRN DAILY PRN MC SEE COMMENTS Last administered on 01/20/17 13:13; Start 01/20/17 at 13:15 Warfarin Sodium (Coumadin) 5 mg 1X ONCE PO ; Start 01/20/17 at 16:00; Stop at 16:01 Comment Review of Relevant I have reviewed the following items michelle (where applicable) has been applied. TUNG COX MD Jan 20, 2017 14:55
--- NOTE | 2017-01-20 15:05 | RAD ---
CT head without contrast History: Cerebrovascular accident, altered mental status. Comparison: 01/14/2017. Procedure: Axial images are obtained of the head from the skull base through the vertex without IV contrast. Findings: Moderate bilateral periventricular white matter hypodensities likely chronic small vessel ischemic disease. Small hypodensity identified in the right cerebellum similar to prior exam likely old infarct. The ventricles and sulci are normal for the patient's age. No mass-effect, intracranial mass, midline shift, hemorrhage or obvious acute infarction is identified. Basilar cisterns are patent. Bone windows demonstrate no significant calvarial abnormality. The visualized paranasal sinuses appear clear. Impression: 1. No acute intracranial process. PQRS Compliance Statement: One or more of the following individualized dose reduction techniques were utilized for this examination: 1. Automated exposure control 2. Adjustment of the mA and/or kV according to patient size 3. Use of iterative reconstruction technique
[2017-01-20] MEDS ORDERED: WARFARIN 5 MG TABLET. PO ONE (16:00)
[2017-01-20] MEDS: oxyCODONE/APAP 5/325 1 TAB TABLET PO PRN (20:34)
[2017-01-20] MEDS: FOLIC/VIT B COMP W-C (RENAL) TABLET. PO SCH (20:39)
[2017-01-20] MEDS ORDERED: TOTAL PARENTERAL NUTRITION IV SCH ×9 (22:00)
[2017-01-20] MEDS ORDERED: [UNRECOGNIZED DRUG - OTHER] IV SCH ×9 (22:00)
[2017-01-20] MEDS ORDERED: DEXTROSE 70% IV SCH ×9 (22:00)
[2017-01-20] MEDS ORDERED: AMINO ACIDS IV SCH ×9 (22:00)
[2017-01-21] VITALS (24 sets, daily range): BP systolic 87–131; BP diastolic 18–59
[2017-01-21] MEDS: fentaNYL PF VIAL 100 MCG/2 ML VIAL IV PRN ×3 (05:45→16:55)
[2017-01-21] MEDS: AMPICILLIN SODIUM 2 GM in IV NORMAL SALINE 100ML 100 ML IV SCH ×3 (05:45→22:13)
[2017-01-21] MEDS: HEPARIN 25,000UTS/500ML PREMIX 500 ML IV PRN ×2 (05:47→10:01)
[2017-01-21 06:31] LABS: INR 1.6 (0.8-1.1); PROTHROMBIN TIME PATIENT 17.7 SEC (11.7-14.0)
[2017-01-21 07:23] LABS: CALCIUM 8.7 mg/dL (8.5-10.1); CREATININE 4.8 mg/dL (0.6-1.0); GFR 8.9; MAGNESIUM 2.4 mg/dL (1.8-2.4); PHOSPHORUS 5.3 mg/dL (2.6-4.7); POTASSIUM 5.5 mmol/L (3.5-5.1)
--- NOTE | 2017-01-21 07:55 | PDOC ---
Infectious Disease Note Subjective Subjective Feeling better, very weak ROS ROS GEN: Denies fevers, chills, sweats HEENT: Denies blurred vision, sore throat CV: Denies chest pain RESP: Denies shortness of air, cough GI: Denies n/v/d NEURO: Denies confusion, Vital Sign Vital Signs Vital Signs Date Time Temp Pulse Resp B/P (MAP) Pulse Ox O2 Delivery O2 Flow Rate FiO2 01/21/17 06:00 60 12 103/45 (64) 100 Nasal Cannula 2.0 01/21/17 04:00 97.7 97.7 Physical Exam PHYSICAL EXAM GENERAL: NAD, Alert HEENT: PERRL, OC/OP NECK: Supple, no JVD, no LN LUNGS: Clear HEART: S1S2, no gallop, no murmur ABD: Soft, NT, no organomegaly, no rebound EXT: No edema, no cyanosis 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: Alert, 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, no focal neurologic deficit SKIN: No rash IV: ok Labs Lab Laboratory Tests Test 01/21/17 05:50 Prothrombin Time 17.7 SEC (11.7-14.0) Prothromb Time International Ratio 1.6 (0.8-1.1) Sodium Level 130 mmol/L (136-145) Potassium Level 5.5 mmol/L (3.5-5.1) Chloride Level 94 mmol/L (98-107) Carbon Dioxide Level 24 mmol/L (21-32) Anion Gap 12 (6-14) Blood Urea Nitrogen 41 mg/dL (7-20) Creatinine 4.8 mg/dL (0.6-1.0) Estimated GFR (Cockcroft-Gault) 8.9 Glucose Level 182 mg/dL (70-99) Calcium Level 8.7 mg/dL (8.5-10.1) Phosphorus Level 5.3 mg/dL (2.6-4.7) Magnesium Level 2.4 mg/dL (1.8-2.4) Objective Assessment Enterococcus sepsis, 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 -TTE AV + mass on noncoronary cusp AV. MARY JANE 2 x 1 x 2 cm on AV & small mobile veg MV -Repeat BC NGTD, 01/16 Hypotension, on Levophed gtt Abnormal splenic lesion CT- c/w hemangioma; appreciate surgery's input Leukocytosis, trending down Encephalopathy, better Generalized aches - no history of PMR or fibromyalgia per . no joint inflammation Afib RVR + MRSA screen Recent UTI H/o C-diff Thrombocytopenia CKD/HD Plan Plan of Care Ampicillin (started 01/17) and gent for synergy Gent. Last dose 01/18 Gent trough 1.5 Monitor WBC, Temp f/u BC D/w in detail pt/ot Critically ill YENIFER ACOSTA MD Jan 21, 2017 07:55
[2017-01-21] MEDS: CALCIUM ACETATE 667 MG CAPSULE PO SCH ×3 (08:00→17:00)
--- NOTE | 2017-01-21 08:03 | PDOC ---
PROGRESS NOTES Subjective Subjective Patient getting dialysis this morning. She is more alert today but still c/o weakness and fatigue. Patient has been eating regularly, but only a few bites of each meal. Intake is not adequate. Heart rate controlled, pacing at 60. Discussed patient's care with . Objective Objective Vital Signs Date Time Temp Pulse Resp B/P (MAP) Pulse Ox O2 Delivery O2 Flow Rate FiO2 01/21/17 06:00 60 12 103/45 (64) 100 Nasal Cannula 2.0 01/21/17 04:00 97.7 97.7 Physical Exam Physical Exam No significant changes to exam. COMMENT Patient off vasopressors since yesterday, blood pressure today 100/45; will continue to monitor in ICU. Continue TPN for now, continue to monitor patient's appetite. Warfarin started on 01/20; INR today 1.6, continue to monitor INR. Assessment Assessment Problems Medical Problems: (1) Non-STEMI (non-ST elevated myocardial infarction) Status: Acute Comment Review of Relevant I have reviewed the following items michelle (where applicable) has been applied. Labs Laboratory Tests Test 01/20/17 06:10 01/21/17 05:50 White Blood Count 16.3 x10^3/uL (4.0-11.0) Red Blood Count 2.72 x10^6/uL (3.50-5.40) Hemoglobin 9.7 g/dL (12.0-15.5) Hematocrit 30.1 % (36.0-47.0) Mean Corpuscular Volume 111 fL (79-100) Mean Corpuscular Hemoglobin 36 pg (25-35) Mean Corpuscular Hemoglobin Concent 32 g/dL (31-37) Red Cell Distribution Width 19.5 % (11.5-14.5) Platelet Count 58 x10^3/uL (140-400) Prothrombin Time 16.1 SEC (11.7-14.0) 17.7 SEC (11.7-14.0) Prothromb Time International Ratio 1.4 (0.8-1.1) 1.6 (0.8-1.1) Heparin Anti-Xa Act, Unfractionated 0.48 IU/mL (0.30-0.70) Sodium Level 132 mmol/L (136-145) 130 mmol/L (136-145) Potassium Level 5.1 mmol/L (3.5-5.1) 5.5 mmol/L (3.5-5.1) Chloride Level 96 mmol/L (98-107) 94 mmol/L (98-107) Carbon Dioxide Level 25 mmol/L (21-32) 24 mmol/L (21-32) Anion Gap 11 (6-14) 12 (6-14) Blood Urea Nitrogen 31 mg/dL (7-20) 41 mg/dL (7-20) Creatinine 4.1 mg/dL (0.6-1.0) 4.8 mg/dL (0.6-1.0) Estimated GFR (Cockcroft-Gault) 10.7 8.9 Glucose Level 175 mg/dL (70-99) 182 mg/dL (70-99) Calcium Level 8.5 mg/dL (8.5-10.1) 8.7 mg/dL (8.5-10.1) Phosphorus Level 5.1 mg/dL (2.6-4.7) 5.3 mg/dL (2.6-4.7) Magnesium Level 2.4 mg/dL (1.8-2.4) 2.4 mg/dL (1.8-2.4) Albumin 2.4 g/dL (3.4-5.0) Laboratory Tests Test 01/21/17 05:50 Prothrombin Time 17.7 SEC (11.7-14.0) Prothromb Time International Ratio 1.6 (0.8-1.1) Sodium Level 130 mmol/L (136-145) Potassium Level 5.5 mmol/L (3.5-5.1) Chloride Level 94 mmol/L (98-107) Carbon Dioxide Level 24 mmol/L (21-32) Anion Gap 12 (6-14) Blood Urea Nitrogen 41 mg/dL (7-20) Creatinine 4.8 mg/dL (0.6-1.0) Estimated GFR (Cockcroft-Gault) 8.9 Glucose Level 182 mg/dL (70-99) Calcium Level 8.7 mg/dL (8.5-10.1) Phosphorus Level 5.3 mg/dL (2.6-4.7) Magnesium Level 2.4 mg/dL (1.8-2.4) Microbiology 01/16/17 Blood Culture - Preliminary, Resulted NO GROWTH AFTER 4 DAYS Medications Current Medications Sodium Chloride 500 ml @ 500 mls/hr 1X ONCE IV Last administered on 06:45; Start 01/09/17 at 06:45; Stop 01/09/17 at 07:44; Status DC Diltiazem HCl (Cardizem) 10 mg 1X ONCE IVP Last administered on 01/09/17 07: 39; Start 01/09/17 at 07:30; Stop 01/09/17 at 07:31; Status DC Diltiazem HCl 125 mg/Dextrose 125 ml @ 0 mls/hr CONT PRN IV SEE I/O RECORD Last administered on 01/09/17 07:40; Start 01/09/17 at 07:30 Aspirin (Children'S Aspirin) 324 mg 1X ONCE PO Last administered on 01/09/17 08:15; Start 01/09/17 at 07:45; Stop 01/09/17 at 07:46; Status DC Darbepoetin Jerome (Aranesp) 60 mcg WEEKLYHS SQ Last administered on 01/16/17 21 :10; Start 01/09/17 at 21:00 Albumin Human 500 ml @ 125 mls/hr 1X ONCE IV Last administered on 01/09/17 13:02; Start 01/09/17 at 13:00; Stop 01/09/17 at 16:59; Status DC Albumin Human 500 ml @ 125 mls/hr 1X ONCE IV Last administered on 01/09/17 16:35; Start 01/09/17 at 16:00; Stop 01/09/17 at 19:59; Status DC Digoxin (Lanoxin) 500 mcg 1X ONCE IV Last administered on 01/09/17 13:03; Start 01/09/17 at 13:00; Stop 01/09/17 at 13:01; Status DC Sodium Chloride 1,000 ml @ 1,000 mls/hr Q1H PRN IV hypotension; Start 01/09/17 at 16:31; Stop 01/09/17 at 22:30; Status DC Sodium Chloride 1,000 ml @ 400 mls/hr Q2H30M PRN IV PATENCY; Start 01/09/17 at 16:31; Stop 01/10/17 at 04:30; Status DC Info (PHARMACY MONITORING -- do not chart) 1 each PRN DAILY PRN MC SEE COMMENTS ; Start 01/09/17 at 16:45; Status Cancel Fentanyl Citrate (Fentanyl 2ml Vial) 50 mcg PRN Q4HRS PRN IV PAIN Last administered on 01/21/17 05:45; Start 01/09/17 at 18:00 Oxycodone/ Acetaminophen (Percocet 5/325) 1 tab PRN Q4HRS PRN PO PAIN Last administered on 01/20/17 20:34; Start 01/09/17 at 18:00 Fentanyl Citrate (Fentanyl 2ml Vial) 50 mcg 1X ONCE IM ; Start 01/09/17 at 20: 00; Stop 01/09/17 at 20:01; Status Cancel Fentanyl Citrate (Fentanyl 2ml Vial) 50 mcg 1X ONCE IV Last administered on 19:57; Start 01/09/17 at 20:00; Stop 01/09/17 at 20:01; Status DC Allopurinol (Zyloprim) 100 mg DAILY PO Last administered on 01/20/17 09:11; Start 01/10/17 at 14:30 Aspirin (Ecotrin) 81 mg DAILY PO Last administered on 01/20/17 09:11; Start at 14:30 Atenolol (Tenormin) 50 mg DAILY PO Last administered on 01/12/17 09:09; Start 01/10/17 at 14:30; Stop 01/12/17 at 14:50; Status DC Calcium Acetate (Phoslo) 2,001 mg TIDWMEALS PO Last administered on 01/20/17 16 :16; Start 01/10/17 at 17:00 Vitamin B Complex/ Vitamin C (Tsering-Ray) 1 tab HS PO Last administered on 20:39; Start 01/10/17 at 21:00 Gabapentin (Neurontin) 100 mg BID PO Last administered on 01/20/17 20:32; Start 01/10/17 at 14:30 Meloxicam (Mobic) 7.5 mg DAILY PO Last administered on 01/20/17 09:10; Start at 14:30 Fish Oil (Fish Oil) 1,000 mg DAILY PO Last administered on 01/20/17 09:11; Start 01/11/17 at 09:00 Pantoprazole Sodium (Protonix) 40 mg DAILYAC PO Last administered on 01/20/17 09:16; Start 01/10/17 at 14:30 Digoxin (Lanoxin) 500 mcg 1X ONCE IV Last administered on 01/10/17 15:23; Start 01/10/17 at 15:30; Stop 01/10/17 at 15:31; Status DC Albumin Human 500 ml @ 125 mls/hr 1X ONCE IV Last administered on 01/10/17 15:22; Start 01/10/17 at 15:15; Stop 01/10/17 at 19:14; Status DC Lidocaine HCl (Xylocaine-Mpf 1% Vial) 2 ml STK-MED ONCE .ROUTE ; Start 01/11/17 at 08:47; Stop 01/11/17 at 08:48; Status DC Sodium Chloride 1,000 ml @ 1,000 mls/hr Q1H PRN IV hypotension; Start 01/11/17 at 08:55; Stop 01/11/17 at 14:54; Status DC Albumin Human 200 ml @ 200 mls/hr 1X PRN PRN IV Hypotension; Start 01/11/17 at 09:00; Stop 01/11/17 at 14:59; Status DC Acetaminophen (Tylenol) 500 mg 1X PRN PRN PO MILD PAIN / TEMP; Start 01/11/17 at 09:00; Stop 01/12/17 at 08:59; Status DC Diphenhydramine HCl (Benadryl) 25 mg 1X PRN PRN IV ITCHING Last administered on 01/11/17 13:30; Start 01/11/17 at 09:00; Stop 01/12/17 at 08:59; Status DC Info (PHARMACY MONITORING -- do not chart) 1 each PRN DAILY PRN MC SEE COMMENTS ; Start 01/11/17 at 09:00; Stop 01/18/17 at 08:14; Status DC Lidocaine HCl (Xylocaine-Mpf 1% Vial) 2 ml 1X ONCE INJ Last administered on 10:01; Start 01/11/17 at 09:00; Stop 01/11/17 at 09:02; Status DC Albumin Human 500 ml @ 125 mls/hr 1X ONCE IV Last administered on 01/11/17 11:50; Start 01/11/17 at 11:45; Stop 01/11/17 at 15:44; Status DC Nitroglycerin (Nitrostat) 0.4 mg STK-MED ONCE SL ; Start 01/11/17 at 12:07; Stop 01/11/17 at 12:08; Status DC Nitroglycerin (Nitrostat) 0.4 mg PRN Q5MIN PRN SL CHEST PAIN Last administered on 01/11/17 12:35; Start 01/11/17 at 12:15 Morphine Sulfate 3 mg 1X ONCE IV Last administered on 01/11/17 12:15; Start 01/11/17 at 12:15; Stop 01/11/17 at 12:16; Status DC Digoxin (Lanoxin) 250 mcg 1X ONCE IV Last administered on 01/11/17 12:34; Start 01/11/17 at 12:30; Stop 01/11/17 at 12:31; Status DC Fentanyl Citrate (Fentanyl 5ml Vial) 250 mcg STK-MED ONCE .ROUTE ; Start at 13:07; Stop 01/11/17 at 13:08; Status DC Midazolam HCl (Versed) 5 mg STK-MED ONCE .ROUTE ; Start 01/11/17 at 13:07; Stop 01/11/17 at 13:08; Status DC Iohexol (Omnipaque 350 Mg/ml) 100 ml STK-MED ONCE .ROUTE ; Start 01/11/17 at 13: 08; Stop 01/11/17 at 13:09; Status DC Heparin Sodium/ Sodium Chloride 500 ml @ As Directed STK-MED ONCE .ROUTE ; Start 01/11/17 at 13:09; Stop 01/11/17 at 13:10; Status DC Lidocaine HCl 20 ml STK-MED ONCE .ROUTE ; Start 01/11/17 at 13:09; Stop at 13:10; Status DC Heparin Sodium/ Sodium Chloride 1,000 unit 1X ONCE IART Last administered on 13:50; Start 01/11/17 at 13:45; Stop 01/11/17 at 13:46; Status DC Midazolam HCl (Versed) 1 mg 1X ONCE IV Last administered on 01/11/17 13:51; Start 01/11/17 at 13:45; Stop 01/11/17 at 13:46; Status DC Fentanyl Citrate (Fentanyl 5ml Vial) 50 mcg 1X ONCE IV Last administered on 13:51; Start 01/11/17 at 13:45; Stop 01/11/17 at 13:46; Status DC Iohexol (Omnipaque 350 Mg/ml) 81 ml 1X ONCE IART Last administered on 13:51; Start 01/11/17 at 13:45; Stop 01/11/17 at 13:46; Status DC Lidocaine HCl 12 ml 1X ONCE IJ Last administered on 01/11/17 13:50; Start at 13:45; Stop 01/11/17 at 13:46; Status DC Info (Do NOT chart on this entry -- for MONITORING) 1 each PRN DAILY PRN MC SEE COMMENTS; Start 01/11/17 at 14:00; Stop 01/13/17 at 13:59; Status DC Albumin Human 250 ml @ 62.5 mls/hr 1X ONCE IV Last administered on 01/11/17 14:15; Start 01/11/17 at 14:15; Stop 01/11/17 at 18:14; Status DC Digoxin (Lanoxin) 250 mcg 1X ONCE IV Last administered on 01/11/17 19:02; Start 01/11/17 at 18:45; Stop 01/11/17 at 18:46; Status DC Ondansetron HCl (Zofran) 8 mg PRN Q6HRS PRN IV NAUSEA/VOMITING Last administered on 01/15/17 04:04; Start 01/11/17 at 18:45 Enoxaparin Sodium (Lovenox 100mg Syringe) 90 mg Q24H SQ Last administered on 21:09; Start 01/11/17 at 20:00; Stop 01/15/17 at 11:08; Status DC Propafenone HCl (Rythmol) 75 mg BID PO Last administered on 01/20/17 20:34; Start 01/12/17 at 21:00 Norepinephrine Bitartrate 250 ml @ 0 mls/hr CONT PRN IV SEE I/O RECORD Last administered on 01/17/17 23:13; Start 01/12/17 at 15:45 Info (Anti-Coagulation Monitoring By Pharmacy) 1 each PRN DAILY PRN MC SEE COMMENTS Last administered on 01/20/17 08:28; Start 01/13/17 at 09:00 Magnesium Sulfate/ Dextrose 50 ml @ 25 mls/hr PRN DAILY PRN IV for Mag < 1.7 on am labs; Start 01/13/17 at 10:45 Sodium Chloride 1,000 ml @ 80 mls/hr [id number] IV Last administered on 10:50; Start 01/13/17 at 10:45; Stop 01/14/17 at 19:07; Status DC Sodium Chloride 500 ml @ 0 mls/hr QID PRN IV for MAP < 65 Last administered on 01/14/17 01:15; Start 01/13/17 at 10:45 Sodium Chloride 1,000 ml @ 1,000 mls/hr Q1H PRN IV hypotension; Start 01/14/17 at 09:11; Stop 01/14/17 at 15:10; Status DC Info (PHARMACY MONITORING -- do not chart) 1 each PRN DAILY PRN MC SEE COMMENTS ; Start 01/14/17 at 09:15; Status UNV Piperacillin Sod/ Tazobactam Sod 2.25 gm/Sodium Chloride 50 ml @ 100 mls/hr Q8HRS IV Last administered on 01/17/17 05:01; Start 01/14/17 at 12:30; Stop 01/17/17 at 14:30; Status DC Micafungin Sodium 100 mg/Dextrose 100 ml @ 100 mls/hr Q24H IV Last administered on 01/16/17 13:42; Start 01/14/17 at 13:00; Stop 01/17/17 at 14:30 ; Status DC Vancomycin HCl (Vanco Per Pharmacy) 1 each PRN DAILY PRN MC SEE COMMENTS Last administered on 01/17/17 11:01; Start 01/15/17 at 07:15; Stop 01/17/17 at 14:30; Status DC Vancomycin HCl 2 gm/Sodium Chloride 500 ml @ 250 mls/hr 1X ONCE IV Last administered on 01/15/17 07:55; Start 01/15/17 at 08:00; Stop 01/15/17 at 09:59 ; Status DC Metronidazole 100 ml @ 100 mls/hr Q8H IV Last administered on 01/16/17 00:03 ; Start 01/15/17 at 08:00; Stop 01/16/17 at 08:02; Status DC Iohexol (Omnipaque 300 Mg/ml) 75 ml 1X ONCE IV ; Start 01/15/17 at 08:00; Stop 01/15/17 at 08:01; Status DC Lidocaine/Sodium Bicarbonate (Buffered Lidocaine 1%) 3 ml 1X ONCE IJ Last administered on 01/15/17 09:00; Start 01/15/17 at 08:30; Stop 01/15/17 at 08:32 ; Status DC Heparin Sodium/ Sodium Chloride 60 unit 1X ONCE IV Last administered on 09:01; Start 01/15/17 at 08:30; Stop 01/15/17 at 08:32; Status DC Heparin Sodium (Porcine) (Heparin Sodium) 3,000 unit 1X ONCE IV Last administered on 01/15/17 20:21; Start 01/15/17 at 21:00; Stop 01/15/17 at 21:01 ; Status DC Heparin Sodium/ Dextrose 500 ml @ 0 mls/hr CONT PRN IV SEE I/O RECORD Last administered on 01/21/17 05:47; Start 01/15/17 at 21:00 Iohexol (Omnipaque 300 Mg/ml) 75 ml 1X ONCE IV Last administered on 01/15/17 12:15; Start 01/15/17 at 12:15; Stop 01/15/17 at 12:16; Status DC Info (Do NOT chart on this entry -- for MONITORING) 1 each PRN DAILY PRN MC SEE COMMENTS; Start 01/15/17 at 12:15; Stop 01/17/17 at 12:14; Status DC Vancomycin HCl 1 each 1X ONCE MC Last administered on 01/17/17 05:00; Start at 05:00; Stop 01/17/17 at 05:01; Status DC Info (PHARMACY MONITORING -- do not chart) 1 each PRN DAILY PRN MC SEE COMMENTS ; Start 01/16/17 at 07:45; Status UNV Info (PHARMACY MONITORING -- do not chart) 1 each PRN DAILY PRN MC SEE COMMENTS ; Start 01/16/17 at 07:45; Status UNV Info (PHARMACY MONITORING -- do not chart) 1 each PRN DAILY PRN MC SEE COMMENTS ; Start 01/16/17 at 07:45; Status UNV Sodium Chloride 1,000 ml @ 1,000 mls/hr Q1H PRN IV hypotension; Start 01/16/17 at 07:32; Stop 01/16/17 at 13:31; Status DC Albumin Human 200 ml @ 200 mls/hr 1X PRN PRN IV Hypotension; Start 01/16/17 at 07:45; Stop 01/16/17 at 13:44; Status DC Info (PHARMACY MONITORING -- do not chart) 1 each PRN DAILY PRN MC SEE COMMENTS ; Start 01/16/17 at 07:45; Status UNV Gentamicin Sulfate 1 each ONCE ONCE MC ; Start 01/16/17 at 08:00; Stop at 08:04; Status DC Gentamicin Sulfate 180 mg/ Sodium Chloride 104.5 ml @ 104.5 mls/ hr 1X ONCE IV Last administered on 01/16/17t 11:50; Start 01/16/17 at 09:00; Stop at 09:59; Status DC Lidocaine HCl (Xylocaine 2% Topical 5gm Tube) 1 edwardo 1X ONCE TP ; Start at 14:45; Stop 01/16/17 at 14:53; Status DC Lidocaine HCl (Viscous Lidocaine) 15 ml 1X ONCE MM ; Start 01/16/17 at 14:45; Stop 01/16/17 at 14:53; Status DC Benzocaine (Hurricaine One) 1spray 1X ONCE MM Last administered on 01/16/17t 14:45; Start 01/16/17 at 14:45; Stop 01/16/17 at 14:53; Status DC Ondansetron HCl (Zofran) 4 mg PRN Q6HRS PRN IV NAUSEA/VOMITING; Start 01/17/17 at 07:00; Stop 01/18/17 at 06:59; Status DC Fentanyl Citrate (Fentanyl 2ml Vial) 25 mcg PRN Q5MIN PRN IV MILD PAIN; Start 01/17/17 at 07:00; Stop 01/18/17 at 06:59; Status DC Fentanyl Citrate (Fentanyl 2ml Vial) 50 mcg PRN Q5MIN PRN IV MODERATE PAIN; Start 01/17/17 at 07:00; Stop 01/18/17 at 06:59; Status DC Morphine Sulfate 1 mg PRN Q10MIN PRN IV SEVERE PAIN; Start 01/17/17 at 07:00; Stop 01/18/17 at 06:59; Status DC Ringer's Solution 1,000 ml @ 30 mls/hr Q24H IV ; Start 01/17/17 at 07:00; Stop 01/17/17 at 18:59; Status DC Lidocaine HCl 2 ml PRN 1X PRN ID PRIOR TO IV START; Start 01/17/17 at 07:00; Stop 01/18/17 at 06:59; Status DC Hydromorphone HCl (Dilaudid) 0.5 mg PRN Q10MIN PRN IV SEV PAIN, Second choice; Start 01/17/17 at 07:00; Stop 01/18/17 at 06:59; Status DC Prochlorperazine Edisylate (Compazine) 5 mg PACU PRN PRN IV NAUSEA, MRX1; Start 01/17/17 at 07:00; Stop 01/18/17 at 06:59; Status DC Propofol 20 ml @ As Directed STK-MED ONCE IV ; Start 01/17/17 at 10:24; Stop 01/17 at 10:25; Status DC Phenylephrine HCl 1 mg STK-MED ONCE IV ; Start 01/17/17 at 10:24; Stop 01/17/17 at 10:25; Status DC Vancomycin HCl 500 mg/Sodium Chloride 100 ml @ 100 mls/hr QTUTHSA IV ; Start at 16:00; Stop 01/18/17 at 16:00; Status DC Ampicillin Sodium 2 gm/Sodium Chloride 100 ml @ 200 mls/hr Q8HRS IV Last administered on 01/21/17 05:45; Start 01/17/17 at 15:00 Gentamicin Sulfate 270 mg/ Sodium Chloride 106.75 ml @ 106.75 mls/hr Q24H IV ; Start 01/17/17 at 14:15; Status UNV Info 1 each PRN DAILY PRN MC SEE COMMENTS Last administered on 01/20/17 13:14; Start 01/17/17 at 21:30 Amino Acids/ Glycerin/ Electrolytes 1,000 ml @ 50 mls/hr Q20H IV Last administered on 01/17/17 21:46; Start 01/17/17 at 21:30; Stop 01/18/17 at 21:59; Status DC Sodium Chloride 1,000 ml @ 1,000 mls/hr Q1H PRN IV hypotension; Start 01/18/17 at 08:05; Stop 01/18/17 at 14:04; Status DC Sodium Chloride 1,000 ml @ 400 mls/hr Q2H30M PRN IV PATENCY; Start 01/18/17 at 08:05; Stop 01/18/17 at 20:04; Status DC Info (PHARMACY MONITORING -- do not chart) 1 each PRN DAILY PRN MC SEE COMMENTS ; Start 01/18/17 at 08:15 Info (PHARMACY MONITORING -- do not chart) 1 each PRN DAILY PRN MC SEE COMMENTS ; Start 01/18/17 at 08:15; Stop 01/18/17 at 08:15; Status DC Sodium Chloride 90 meq/Potassium Chloride 50 meq/ Potassium Phosphate 13.6 mmol/ Magnesium Sulfate 10 meq/ Calcium Gluconate 10 meq/ Multivitamins 10 ml/Chromium / Copper/Manganese/ Seleni/Zn 1 ml/ Total Parenteral Nutrition/Amino Acids/ Dextrose/ Fat Emulsion Intravenous 1,512 ml @ 63 mls/hr TPN CONT IV Last administered on 01/18/17 20:59; Start 01/18/17 at 22:00; Stop 01/19/17 at 21:59; Status DC Gentamicin Sulfate 270 mg/ Sodium Chloride 106.75 ml @ 106.75 mls/hr 1X ONCE IV Last administered on 01/18/17 16:51; Start 01/18/17 at 16:00; Stop 01/18/17 at 16:59; Status DC Sodium Chloride 90 meq/Potassium Chloride 50 meq/ Potassium Phosphate 13.6 mmol/ Magnesium Sulfate 10 meq/ Calcium Gluconate 10 meq/ Multivitamins 10 ml/Chromium / Copper/Manganese/ Seleni/Zn 1 ml/ Total Parenteral Nutrition/Amino Acids/ Dextrose/ Fat Emulsion Intravenous 1,320 ml @ 55 mls/hr TPN CONT IV Last administered on 01/19/17 21:18; Start 01/19/17 at 22:00; Stop 01/20/17 at 21:59; Status DC Warfarin Sodium (Coumadin) 5 mg 1X ONCE PO Last administered on 01/20/17 16:16 ; Start 01/20/17 at 16:00; Stop 01/20/17 at 16:01; Status DC Warfarin Sodium (Coumadin Per Physician) 1 each PRN DAILY PRN MC SEE COMMENTS Last administered on 01/20/17 13:13; Start 01/20/17 at 13:15 Sodium Chloride 90 meq/Potassium Chloride 50 meq/ Magnesium Sulfate 10 meq/ Calcium Gluconate 10 meq/ Multivitamins 10 ml/Chromium/ Copper/Manganese/ Seleni /Zn 1 ml/ Total Parenteral Nutrition/Amino Acids/Dextrose/ Fat Emulsion Intravenous 1,200 ml @ 50 mls/hr TPN CONT IV Last administered on 01/20/17 20 :35; Start 01/20/17 at 22:00; Stop 01/21/17 at 21:59 Active Scripts Active Reported Ferric Citrate 210 Mg Tablet 210 Mg PO Meloxicam 7.5 Mg Tablet 1 Tab PO DAILY Atenolol 50 Mg Tablet 1 Tab PO DAILY Tylenol (Acetaminophen) 325 Mg Tablet 500 Mg PO PRN Q6HRS PRN Aspir 81 (Aspirin) 81 Mg Tablet. 1 Tab PO DAILY Fish Oil 1,000 Mg Capsule ([place]-3 Fatty Acids/Fish Oil) 1 Each Capsule 1 Each PO BID Vitamin D2 (Ergocalciferol (Vitamin D2)) 50,000 Unit Capsule 50,000 Unit PO WEEKLY Allopurinol 100 Mg Tablet 1 Tab PO DAILY Nephro-Ray Tablet (Folic Acid/Vitamin B Comp W-C) 0.8 Mg Tablet 1 Tab PO HS Gabapentin 100 Mg Capsule 100 Mg PO BID Omeprazole 20 Mg Capsule. 20 Mg PO DAILY Calcium Acetate 667 Mg Capsule 2,001 Mg PO TIDWMEALS Vitals/I & O Vital Sign - Last 24 Hours 01/20/17 01/20/17 01/20/17 01/20/17 09:00 09:10 10:00 10:41 Pulse 66 79 78 Resp 11 14 12 B/P (MAP) 134/64 (87) 110/45 107/38 (61) Pulse Ox 100 100 O2 Delivery Nasal Cannula Nasal Cannula Room Air O2 Flow Rate 2.0 2.0 01/20/17 01/20/17 01/20/17 01/20/17 11:03 12:00 12:00 13:13 Temp 98.2 98.2 Pulse 81 80 72 Resp 15 14 14 B/P (MAP) 111/60 (77) 95/50 (65) 124/58 (80) Pulse Ox 96 92 100 O2 Delivery Nasal Cannula Nasal Cannula Nasal Cannula Nasal Cannula O2 Flow Rate 2.0 2.0 01/20/17 01/20/17 01/20/17 01/20/17 14:00 15:00 16:29 16:34 Temp 98.3 98.3 Pulse 74 72 84 Resp 19 16 19 23 B/P (MAP) 84/38 (53) 125/54 (77) 114/48 (70) Pulse Ox 100 100 92 97 O2 Delivery Nasal Cannula Nasal Cannula Room Air Nasal Cannula O2 Flow Rate 2.0 2.0 01/20/17 01/20/17 01/20/17 01/20/17 16:36 17:02 17:04 18:18 Pulse 93 65 Resp 15 15 15 B/P (MAP) 91/48 (62) 100/46 (64) Pulse Ox 92 92 100 O2 Delivery Room Air Nasal Cannula Room Air Nasal Cannula O2 Flow Rate 3.0 01/20/17 01/20/17 01/20/17 01/20/17 19:00 20:00 20:00 20:34 Temp 98.1 98.1 Pulse 77 84 Resp 14 17 16 B/P (MAP) 91/39 (56) 107/36 (59) Pulse Ox 100 100 100 O2 Delivery Nasal Cannula Nasal Cannula Nasal Cannula Nasal Cannula O2 Flow Rate 2.0 2.0 2.0 2.0 01/20/17 01/20/17 01/20/17 01/20/17 20:34 21:00 21:34 22:00 Pulse 86 74 64 Resp 12 10 10 B/P (MAP) 107/62 102/43 (62) 81/43 (56) Pulse Ox 100 100 100 O2 Delivery Nasal Cannula Nasal Cannula Nasal Cannula O2 Flow Rate 2.0 2.0 2.0 01/20/17 01/20/17 01/21/17 01/21/17 23:00 23:59 00:00 00:00 Temp 97.7 97.7 Pulse 62 60 Resp 10 10 B/P (MAP) 81/43 (56) 87/49 (62) Pulse Ox 100 100 O2 Delivery Nasal Cannula Nasal Cannula Nasal Cannula Nasal Cannula O2 Flow Rate 2.0 2.0 2.0 2.0 01/21/17 01/21/17 01/21/17 01/21/17 01:00 02:00 03:00 04:00 Pulse 60 60 60 Resp 10 12 12 B/P (MAP) 87/52 (64) 95/46 (62) 87/45 (59) Pulse Ox 100 96 94 O2 Delivery Nasal Cannula Nasal Cannula Nasal Cannula Nasal Cannula O2 Flow Rate 2.0 2.0 2.0 2.0 01/21/17 01/21/17 01/21/17 01/21/17 04:00 05:00 05:45 06:00 Temp 97.7 97.7 Pulse 61 61 60 Resp 12 14 14 12 B/P (MAP) 105/48 (67) 98/42 (60) 103/45 (64) Pulse Ox 100 100 100 100 O2 Delivery Nasal Cannula Nasal Cannula Nasal Cannula Nasal Cannula O2 Flow Rate 2.0 2.0 2.0 2.0 INEZ GRADY MD Jan 21, 2017 08:03
[2017-01-21] MEDS ORDERED: IV NORMAL SALINE 1000ML BAG 1,000 ML IV PRN ×2 (08:06)
[2017-01-21] MEDS ORDERED: DIALYSIS PATIENT. MC PRN ×2 (08:15)
--- NOTE | 2017-01-21 09:31 | PDOC ---
PROGRESS NOTES Assessment Problems Medical Problems: (1) Non-STEMI (non-ST elevated myocardial infarction) Status: Acute Metabolic encephalopathy. Generalized weakness. New onset Afib. CHF Renal failure on dialysis. Sepsis. DM HTN Anemia. Gout Obesity Plan Treat medical and cardiac disease. Discussed with her Objective Vital Signs Date Time Temp Pulse Resp B/P (MAP) Pulse Ox O2 Delivery O2 Flow Rate FiO2 01/21/17 09:00 67 16 91/45 (60) 95 Room Air 01/21/17 08:00 97.4 97.4 01/21/17 07:00 2.0 PHYSICAL EXAM Physical Exam: Alert. Oriented to place and person. PERRL. EOMI. CN: no focal findings. Muscle tone: normal. Muscle strength: 4/5 DTR: 1+ Plantar reflex: flexor Gait: not examined in bed. Sensory exam: no abnormal findings. No cerebellar signs elicited Review of Relevant I have reviewed the following items michelle (where applicable) has been applied. Labs Laboratory Tests Test 01/20/17 06:10 01/21/17 05:50 White Blood Count 16.3 x10^3/uL (4.0-11.0) Red Blood Count 2.72 x10^6/uL (3.50-5.40) Hemoglobin 9.7 g/dL (12.0-15.5) Hematocrit 30.1 % (36.0-47.0) Mean Corpuscular Volume 111 fL (79-100) Mean Corpuscular Hemoglobin 36 pg (25-35) Mean Corpuscular Hemoglobin Concent 32 g/dL (31-37) Red Cell Distribution Width 19.5 % (11.5-14.5) Platelet Count 58 x10^3/uL (140-400) Prothrombin Time 16.1 SEC (11.7-14.0) 17.7 SEC (11.7-14.0) Prothromb Time International Ratio 1.4 (0.8-1.1) 1.6 (0.8-1.1) Heparin Anti-Xa Act, Unfractionated 0.48 IU/mL (0.30-0.70) Sodium Level 132 mmol/L (136-145) 130 mmol/L (136-145) Potassium Level 5.1 mmol/L (3.5-5.1) 5.5 mmol/L (3.5-5.1) Chloride Level 96 mmol/L (98-107) 94 mmol/L (98-107) Carbon Dioxide Level 25 mmol/L (21-32) 24 mmol/L (21-32) Anion Gap 11 (6-14) 12 (6-14) Blood Urea Nitrogen 31 mg/dL (7-20) 41 mg/dL (7-20) Creatinine 4.1 mg/dL (0.6-1.0) 4.8 mg/dL (0.6-1.0) Estimated GFR (Cockcroft-Gault) 10.7 8.9 Glucose Level 175 mg/dL (70-99) 182 mg/dL (70-99) Calcium Level 8.5 mg/dL (8.5-10.1) 8.7 mg/dL (8.5-10.1) Phosphorus Level 5.1 mg/dL (2.6-4.7) 5.3 mg/dL (2.6-4.7) Magnesium Level 2.4 mg/dL (1.8-2.4) 2.4 mg/dL (1.8-2.4) Albumin 2.4 g/dL (3.4-5.0) Laboratory Tests Test 01/21/17 05:50 Prothrombin Time 17.7 SEC (11.7-14.0) Prothromb Time International Ratio 1.6 (0.8-1.1) Sodium Level 130 mmol/L (136-145) Potassium Level 5.5 mmol/L (3.5-5.1) Chloride Level 94 mmol/L (98-107) Carbon Dioxide Level 24 mmol/L (21-32) Anion Gap 12 (6-14) Blood Urea Nitrogen 41 mg/dL (7-20) Creatinine 4.8 mg/dL (0.6-1.0) Estimated GFR (Cockcroft-Gault) 8.9 Glucose Level 182 mg/dL (70-99) Calcium Level 8.7 mg/dL (8.5-10.1) Phosphorus Level 5.3 mg/dL (2.6-4.7) Magnesium Level 2.4 mg/dL (1.8-2.4) Microbiology 01/16/17 Blood Culture - Final, Complete NO GROWTH AFTER 5 DAYS Medications Current Medications Sodium Chloride 500 ml @ 500 mls/hr 1X ONCE IV Last administered on 06:45; Start 01/09/17 at 06:45; Stop 01/09/17 at 07:44; Status DC Diltiazem HCl (Cardizem) 10 mg 1X ONCE IVP Last administered on 01/09/17 07: 39; Start 01/09/17 at 07:30; Stop 01/09/17 at 07:31; Status DC Diltiazem HCl 125 mg/Dextrose 125 ml @ 0 mls/hr CONT PRN IV SEE I/O RECORD Last administered on 01/09/17 07:40; Start 01/09/17 at 07:30 Aspirin (Children'S Aspirin) 324 mg 1X ONCE PO Last administered on 01/09/17 08:15; Start 01/09/17 at 07:45; Stop 01/09/17 at 07:46; Status DC Darbepoetin Jerome (Aranesp) 60 mcg WEEKLYHS SQ Last administered on 01/16/17 21 :10; Start 01/09/17 at 21:00 Albumin Human 500 ml @ 125 mls/hr 1X ONCE IV Last administered on 01/09/17 13:02; Start 01/09/17 at 13:00; Stop 01/09/17 at 16:59; Status DC Albumin Human 500 ml @ 125 mls/hr 1X ONCE IV Last administered on 01/09/17 16:35; Start 01/09/17 at 16:00; Stop 01/09/17 at 19:59; Status DC Digoxin (Lanoxin) 500 mcg 1X ONCE IV Last administered on 01/09/17 13:03; Start 01/09/17 at 13:00; Stop 01/09/17 at 13:01; Status DC Sodium Chloride 1,000 ml @ 1,000 mls/hr Q1H PRN IV hypotension; Start 01/09/17 at 16:31; Stop 01/09/17 at 22:30; Status DC Sodium Chloride 1,000 ml @ 400 mls/hr Q2H30M PRN IV PATENCY; Start 01/09/17 at 16:31; Stop 01/10/17 at 04:30; Status DC Info (PHARMACY MONITORING -- do not chart) 1 each PRN DAILY PRN MC SEE COMMENTS ; Start 01/09/17 at 16:45; Status Cancel Fentanyl Citrate (Fentanyl 2ml Vial) 50 mcg PRN Q4HRS PRN IV PAIN Last administered on 01/21/17 05:45; Start 01/09/17 at 18:00 Oxycodone/ Acetaminophen (Percocet 5/325) 1 tab PRN Q4HRS PRN PO PAIN Last administered on 01/20/17 20:34; Start 01/09/17 at 18:00 Fentanyl Citrate (Fentanyl 2ml Vial) 50 mcg 1X ONCE IM ; Start 01/09/17 at 20: 00; Stop 01/09/17 at 20:01; Status Cancel Fentanyl Citrate (Fentanyl 2ml Vial) 50 mcg 1X ONCE IV Last administered on 19:57; Start 01/09/17 at 20:00; Stop 01/09/17 at 20:01; Status DC Allopurinol (Zyloprim) 100 mg DAILY PO Last administered on 01/20/17 09:11; Start 01/10/17 at 14:30 Aspirin (Ecotrin) 81 mg DAILY PO Last administered on 01/20/17 09:11; Start at 14:30 Atenolol (Tenormin) 50 mg DAILY PO Last administered on 01/12/17 09:09; Start 01/10/17 at 14:30; Stop 01/12/17 at 14:50; Status DC Calcium Acetate (Phoslo) 2,001 mg TIDWMEALS PO Last administered on 01/20/17 16 :16; Start 01/10/17 at 17:00 Vitamin B Complex/ Vitamin C (Tsering-Ray) 1 tab HS PO Last administered on 20:39; Start 01/10/17 at 21:00 Gabapentin (Neurontin) 100 mg BID PO Last administered on 01/20/17 20:32; Start 01/10/17 at 14:30 Meloxicam (Mobic) 7.5 mg DAILY PO Last administered on 01/20/17 09:10; Start at 14:30 Fish Oil (Fish Oil) 1,000 mg DAILY PO Last administered on 01/20/17 09:11; Start 01/11/17 at 09:00 Pantoprazole Sodium (Protonix) 40 mg DAILYAC PO Last administered on 01/20/17 09:16; Start 01/10/17 at 14:30 Digoxin (Lanoxin) 500 mcg 1X ONCE IV Last administered on 01/10/17 15:23; Start 01/10/17 at 15:30; Stop 01/10/17 at 15:31; Status DC Albumin Human 500 ml @ 125 mls/hr 1X ONCE IV Last administered on 01/10/17 15:22; Start 01/10/17 at 15:15; Stop 01/10/17 at 19:14; Status DC Lidocaine HCl (Xylocaine-Mpf 1% Vial) 2 ml STK-MED ONCE .ROUTE ; Start 01/11/17 at 08:47; Stop 01/11/17 at 08:48; Status DC Sodium Chloride 1,000 ml @ 1,000 mls/hr Q1H PRN IV hypotension; Start 01/11/17 at 08:55; Stop 01/11/17 at 14:54; Status DC Albumin Human 200 ml @ 200 mls/hr 1X PRN PRN IV Hypotension; Start 01/11/17 at 09:00; Stop 01/11/17 at 14:59; Status DC Acetaminophen (Tylenol) 500 mg 1X PRN PRN PO MILD PAIN / TEMP; Start 01/11/17 at 09:00; Stop 01/12/17 at 08:59; Status DC Diphenhydramine HCl (Benadryl) 25 mg 1X PRN PRN IV ITCHING Last administered on 01/11/17 13:30; Start 01/11/17 at 09:00; Stop 01/12/17 at 08:59; Status DC Info (PHARMACY MONITORING -- do not chart) 1 each PRN DAILY PRN MC SEE COMMENTS ; Start 01/11/17 at 09:00; Stop 01/18/17 at 08:14; Status DC Lidocaine HCl (Xylocaine-Mpf 1% Vial) 2 ml 1X ONCE INJ Last administered on 10:01; Start 01/11/17 at 09:00; Stop 01/11/17 at 09:02; Status DC Albumin Human 500 ml @ 125 mls/hr 1X ONCE IV Last administered on 01/11/17 11:50; Start 01/11/17 at 11:45; Stop 01/11/17 at 15:44; Status DC Nitroglycerin (Nitrostat) 0.4 mg STK-MED ONCE SL ; Start 01/11/17 at 12:07; Stop 01/11/17 at 12:08; Status DC Nitroglycerin (Nitrostat) 0.4 mg PRN Q5MIN PRN SL CHEST PAIN Last administered on 01/11/17 12:35; Start 01/11/17 at 12:15 Morphine Sulfate 3 mg 1X ONCE IV Last administered on 01/11/17 12:15; Start 01/11/17 at 12:15; Stop 01/11/17 at 12:16; Status DC Digoxin (Lanoxin) 250 mcg 1X ONCE IV Last administered on 01/11/17 12:34; Start 01/11/17 at 12:30; Stop 01/11/17 at 12:31; Status DC Fentanyl Citrate (Fentanyl 5ml Vial) 250 mcg STK-MED ONCE .ROUTE ; Start at 13:07; Stop 01/11/17 at 13:08; Status DC Midazolam HCl (Versed) 5 mg STK-MED ONCE .ROUTE ; Start 01/11/17 at 13:07; Stop 01/11/17 at 13:08; Status DC Iohexol (Omnipaque 350 Mg/ml) 100 ml STK-MED ONCE .ROUTE ; Start 01/11/17 at 13: 08; Stop 01/11/17 at 13:09; Status DC Heparin Sodium/ Sodium Chloride 500 ml @ As Directed STK-MED ONCE .ROUTE ; Start 01/11/17 at 13:09; Stop 01/11/17 at 13:10; Status DC Lidocaine HCl 20 ml STK-MED ONCE .ROUTE ; Start 01/11/17 at 13:09; Stop at 13:10; Status DC Heparin Sodium/ Sodium Chloride 1,000 unit 1X ONCE IART Last administered on 13:50; Start 01/11/17 at 13:45; Stop 01/11/17 at 13:46; Status DC Midazolam HCl (Versed) 1 mg 1X ONCE IV Last administered on 01/11/17 13:51; Start 01/11/17 at 13:45; Stop 01/11/17 at 13:46; Status DC Fentanyl Citrate (Fentanyl 5ml Vial) 50 mcg 1X ONCE IV Last administered on 13:51; Start 01/11/17 at 13:45; Stop 01/11/17 at 13:46; Status DC Iohexol (Omnipaque 350 Mg/ml) 81 ml 1X ONCE IART Last administered on 13:51; Start 01/11/17 at 13:45; Stop 01/11/17 at 13:46; Status DC Lidocaine HCl 12 ml 1X ONCE IJ Last administered on 01/11/17 13:50; Start at 13:45; Stop 01/11/17 at 13:46; Status DC Info (Do NOT chart on this entry -- for MONITORING) 1 each PRN DAILY PRN MC SEE COMMENTS; Start 01/11/17 at 14:00; Stop 01/13/17 at 13:59; Status DC Albumin Human 250 ml @ 62.5 mls/hr 1X ONCE IV Last administered on 01/11/17 14:15; Start 01/11/17 at 14:15; Stop 01/11/17 at 18:14; Status DC Digoxin (Lanoxin) 250 mcg 1X ONCE IV Last administered on 01/11/17 19:02; Start 01/11/17 at 18:45; Stop 01/11/17 at 18:46; Status DC Ondansetron HCl (Zofran) 8 mg PRN Q6HRS PRN IV NAUSEA/VOMITING Last administered on 01/15/17 04:04; Start 01/11/17 at 18:45 Enoxaparin Sodium (Lovenox 100mg Syringe) 90 mg Q24H SQ Last administered on 21:09; Start 01/11/17 at 20:00; Stop 01/15/17 at 11:08; Status DC Propafenone HCl (Rythmol) 75 mg BID PO Last administered on 01/20/17 20:34; Start 01/12/17 at 21:00 Norepinephrine Bitartrate 250 ml @ 0 mls/hr CONT PRN IV SEE I/O RECORD Last administered on 01/17/17 23:13; Start 01/12/17 at 15:45 Info (Anti-Coagulation Monitoring By Pharmacy) 1 each PRN DAILY PRN MC SEE COMMENTS Last administered on 01/20/17 08:28; Start 01/13/17 at 09:00 Magnesium Sulfate/ Dextrose 50 ml @ 25 mls/hr PRN DAILY PRN IV for Mag < 1.7 on am labs; Start 01/13/17 at 10:45 Sodium Chloride 1,000 ml @ 80 mls/hr [id number] IV Last administered on 10:50; Start 01/13/17 at 10:45; Stop 01/14/17 at 19:07; Status DC Sodium Chloride 500 ml @ 0 mls/hr QID PRN IV for MAP < 65 Last administered on 01/14/17 01:15; Start 01/13/17 at 10:45 Sodium Chloride 1,000 ml @ 1,000 mls/hr Q1H PRN IV hypotension; Start 01/14/17 at 09:11; Stop 01/14/17 at 15:10; Status DC Info (PHARMACY MONITORING -- do not chart) 1 each PRN DAILY PRN MC SEE COMMENTS ; Start 01/14/17 at 09:15; Status UNV Piperacillin Sod/ Tazobactam Sod 2.25 gm/Sodium Chloride 50 ml @ 100 mls/hr Q8HRS IV Last administered on 01/17/17 05:01; Start 01/14/17 at 12:30; Stop 01/17/17 at 14:30; Status DC Micafungin Sodium 100 mg/Dextrose 100 ml @ 100 mls/hr Q24H IV Last administered on 01/16/17 13:42; Start 01/14/17 at 13:00; Stop 01/17/17 at 14:30 ; Status DC Vancomycin HCl (Vanco Per Pharmacy) 1 each PRN DAILY PRN MC SEE COMMENTS Last administered on 01/17/17 11:01; Start 01/15/17 at 07:15; Stop 01/17/17 at 14:30; Status DC Vancomycin HCl 2 gm/Sodium Chloride 500 ml @ 250 mls/hr 1X ONCE IV Last administered on 01/15/17 07:55; Start 01/15/17 at 08:00; Stop 01/15/17 at 09:59 ; Status DC Metronidazole 100 ml @ 100 mls/hr Q8H IV Last administered on 01/16/17 00:03 ; Start 01/15/17 at 08:00; Stop 01/16/17 at 08:02; Status DC Iohexol (Omnipaque 300 Mg/ml) 75 ml 1X ONCE IV ; Start 01/15/17 at 08:00; Stop 01/15/17 at 08:01; Status DC Lidocaine/Sodium Bicarbonate (Buffered Lidocaine 1%) 3 ml 1X ONCE IJ Last administered on 01/15/17 09:00; Start 01/15/17 at 08:30; Stop 01/15/17 at 08:32 ; Status DC Heparin Sodium/ Sodium Chloride 60 unit 1X ONCE IV Last administered on 09:01; Start 01/15/17 at 08:30; Stop 01/15/17 at 08:32; Status DC Heparin Sodium (Porcine) (Heparin Sodium) 3,000 unit 1X ONCE IV Last administered on 01/15/17 20:21; Start 01/15/17 at 21:00; Stop 01/15/17 at 21:01 ; Status DC Heparin Sodium/ Dextrose 500 ml @ 0 mls/hr CONT PRN IV SEE I/O RECORD Last administered on 01/21/17 05:47; Start 01/15/17 at 21:00 Iohexol (Omnipaque 300 Mg/ml) 75 ml 1X ONCE IV Last administered on 01/15/17 12:15; Start 01/15/17 at 12:15; Stop 01/15/17 at 12:16; Status DC Info (Do NOT chart on this entry -- for MONITORING) 1 each PRN DAILY PRN MC SEE COMMENTS; Start 01/15/17 at 12:15; Stop 01/17/17 at 12:14; Status DC Vancomycin HCl 1 each 1X ONCE MC Last administered on 01/17/17 05:00; Start at 05:00; Stop 01/17/17 at 05:01; Status DC Info (PHARMACY MONITORING -- do not chart) 1 each PRN DAILY PRN MC SEE COMMENTS ; Start 01/16/17 at 07:45; Status UNV Info (PHARMACY MONITORING -- do not chart) 1 each PRN DAILY PRN MC SEE COMMENTS ; Start 01/16/17 at 07:45; Status UNV Info (PHARMACY MONITORING -- do not chart) 1 each PRN DAILY PRN MC SEE COMMENTS ; Start 01/16/17 at 07:45; Status UNV Sodium Chloride 1,000 ml @ 1,000 mls/hr Q1H PRN IV hypotension; Start 01/16/17 at 07:32; Stop 01/16/17 at 13:31; Status DC Albumin Human 200 ml @ 200 mls/hr 1X PRN PRN IV Hypotension; Start 01/16/17 at 07:45; Stop 01/16/17 at 13:44; Status DC Info (PHARMACY MONITORING -- do not chart) 1 each PRN DAILY PRN MC SEE COMMENTS ; Start 01/16/17 at 07:45; Status UNV Gentamicin Sulfate 1 each ONCE ONCE MC ; Start 01/16/17 at 08:00; Stop at 08:04; Status DC Gentamicin Sulfate 180 mg/ Sodium Chloride 104.5 ml @ 104.5 mls/ hr 1X ONCE IV Last administered on 01/16/17t 11:50; Start 01/16/17 at 09:00; Stop at 09:59; Status DC Lidocaine HCl (Xylocaine 2% Topical 5gm Tube) 1 edwardo 1X ONCE TP ; Start at 14:45; Stop 01/16/17 at 14:53; Status DC Lidocaine HCl (Viscous Lidocaine) 15 ml 1X ONCE MM ; Start 01/16/17 at 14:45; Stop 01/16/17 at 14:53; Status DC Benzocaine (Hurricaine One) 1spray 1X ONCE MM Last administered on 01/16/17t 14:45; Start 01/16/17 at 14:45; Stop 01/16/17 at 14:53; Status DC Ondansetron HCl (Zofran) 4 mg PRN Q6HRS PRN IV NAUSEA/VOMITING; Start 01/17/17 at 07:00; Stop 01/18/17 at 06:59; Status DC Fentanyl Citrate (Fentanyl 2ml Vial) 25 mcg PRN Q5MIN PRN IV MILD PAIN; Start 01/17/17 at 07:00; Stop 01/18/17 at 06:59; Status DC Fentanyl Citrate (Fentanyl 2ml Vial) 50 mcg PRN Q5MIN PRN IV MODERATE PAIN; Start 01/17/17 at 07:00; Stop 01/18/17 at 06:59; Status DC Morphine Sulfate 1 mg PRN Q10MIN PRN IV SEVERE PAIN; Start 01/17/17 at 07:00; Stop 01/18/17 at 06:59; Status DC Ringer's Solution 1,000 ml @ 30 mls/hr Q24H IV ; Start 01/17/17 at 07:00; Stop 01/17/17 at 18:59; Status DC Lidocaine HCl 2 ml PRN 1X PRN ID PRIOR TO IV START; Start 01/17/17 at 07:00; Stop 01/18/17 at 06:59; Status DC Hydromorphone HCl (Dilaudid) 0.5 mg PRN Q10MIN PRN IV SEV PAIN, Second choice; Start 01/17/17 at 07:00; Stop 01/18/17 at 06:59; Status DC Prochlorperazine Edisylate (Compazine) 5 mg PACU PRN PRN IV NAUSEA, MRX1; Start 01/17/17 at 07:00; Stop 01/18/17 at 06:59; Status DC Propofol 20 ml @ As Directed STK-MED ONCE IV ; Start 01/17/17 at 10:24; Stop 01/17 at 10:25; Status DC Phenylephrine HCl 1 mg STK-MED ONCE IV ; Start 01/17/17 at 10:24; Stop 01/17/17 at 10:25; Status DC Vancomycin HCl 500 mg/Sodium Chloride 100 ml @ 100 mls/hr QTUTHSA IV ; Start at 16:00; Stop 01/18/17 at 16:00; Status DC Ampicillin Sodium 2 gm/Sodium Chloride 100 ml @ 200 mls/hr Q8HRS IV Last administered on 01/21/17 05:45; Start 01/17/17 at 15:00 Gentamicin Sulfate 270 mg/ Sodium Chloride 106.75 ml @ 106.75 mls/hr Q24H IV ; Start 01/17/17 at 14:15; Status UNV Info 1 each PRN DAILY PRN MC SEE COMMENTS Last administered on 01/20/17 13:14; Start 01/17/17 at 21:30 Amino Acids/ Glycerin/ Electrolytes 1,000 ml @ 50 mls/hr Q20H IV Last administered on 01/17/17 21:46; Start 01/17/17 at 21:30; Stop 01/18/17 at 21:59; Status DC Sodium Chloride 1,000 ml @ 1,000 mls/hr Q1H PRN IV hypotension; Start 01/18/17 at 08:05; Stop 01/18/17 at 14:04; Status DC Sodium Chloride 1,000 ml @ 400 mls/hr Q2H30M PRN IV PATENCY; Start 01/18/17 at 08:05; Stop 01/18/17 at 20:04; Status DC Info (PHARMACY MONITORING -- do not chart) 1 each PRN DAILY PRN MC SEE COMMENTS ; Start 01/18/17 at 08:15 Info (PHARMACY MONITORING -- do not chart) 1 each PRN DAILY PRN MC SEE COMMENTS ; Start 01/18/17 at 08:15; Stop 01/18/17 at 08:15; Status DC Sodium Chloride 90 meq/Potassium Chloride 50 meq/ Potassium Phosphate 13.6 mmol/ Magnesium Sulfate 10 meq/ Calcium Gluconate 10 meq/ Multivitamins 10 ml/Chromium / Copper/Manganese/ Seleni/Zn 1 ml/ Total Parenteral Nutrition/Amino Acids/ Dextrose/ Fat Emulsion Intravenous 1,512 ml @ 63 mls/hr TPN CONT IV Last administered on 01/18/17 20:59; Start 01/18/17 at 22:00; Stop 01/19/17 at 21:59; Status DC Gentamicin Sulfate 270 mg/ Sodium Chloride 106.75 ml @ 106.75 mls/hr 1X ONCE IV Last administered on 01/18/17 16:51; Start 01/18/17 at 16:00; Stop 01/18/17 at 16:59; Status DC Sodium Chloride 90 meq/Potassium Chloride 50 meq/ Potassium Phosphate 13.6 mmol/ Magnesium Sulfate 10 meq/ Calcium Gluconate 10 meq/ Multivitamins 10 ml/Chromium / Copper/Manganese/ Seleni/Zn 1 ml/ Total Parenteral Nutrition/Amino Acids/ Dextrose/ Fat Emulsion Intravenous 1,320 ml @ 55 mls/hr TPN CONT IV Last administered on 01/19/17 21:18; Start 01/19/17 at 22:00; Stop 01/20/17 at 21:59; Status DC Warfarin Sodium (Coumadin) 5 mg 1X ONCE PO Last administered on 01/20/17 16:16 ; Start 01/20/17 at 16:00; Stop 01/20/17 at 16:01; Status DC Warfarin Sodium (Coumadin Per Physician) 1 each PRN DAILY PRN MC SEE COMMENTS Last administered on 01/20/17 13:13; Start 01/20/17 at 13:15 Sodium Chloride 90 meq/Potassium Chloride 50 meq/ Magnesium Sulfate 10 meq/ Calcium Gluconate 10 meq/ Multivitamins 10 ml/Chromium/ Copper/Manganese/ Seleni /Zn 1 ml/ Total Parenteral Nutrition/Amino Acids/Dextrose/ Fat Emulsion Intravenous 1,200 ml @ 50 mls/hr TPN CONT IV Last administered on 01/20/17 20 :35; Start 01/20/17 at 22:00; Stop 01/21/17 at 21:59 Sodium Chloride 1,000 ml @ 1,000 mls/hr Q1H PRN IV hypotension; Start 01/21/17 at 08:06; Stop 01/21/17 at 14:05 Sodium Chloride 1,000 ml @ 400 mls/hr Q2H30M PRN IV PATENCY; Start 01/21/17 at 08:06; Stop 01/21/17 at 20:05 Info (PHARMACY MONITORING -- do not chart) 1 each PRN DAILY PRN MC SEE COMMENTS ; Start 01/21/17 at 08:15; Status UNV Info (PHARMACY MONITORING -- do not chart) 1 each PRN DAILY PRN MC SEE COMMENTS ; Start 01/21/17 at 08:15; Status UNV Active Scripts Active Reported Ferric Citrate 210 Mg Tablet 210 Mg PO Meloxicam 7.5 Mg Tablet 1 Tab PO DAILY Atenolol 50 Mg Tablet 1 Tab PO DAILY Tylenol (Acetaminophen) 325 Mg Tablet 500 Mg PO PRN Q6HRS PRN Aspir 81 (Aspirin) 81 Mg Tablet. 1 Tab PO DAILY Fish Oil 1,000 Mg Capsule ([place]-3 Fatty Acids/Fish Oil) 1 Each Capsule 1 Each PO BID Vitamin D2 (Ergocalciferol (Vitamin D2)) 50,000 Unit Capsule 50,000 Unit PO WEEKLY Allopurinol 100 Mg Tablet 1 Tab PO DAILY Nephro-Ray Tablet (Folic Acid/Vitamin B Comp W-C) 0.8 Mg Tablet 1 Tab PO HS Gabapentin 100 Mg Capsule 100 Mg PO BID Omeprazole 20 Mg Capsule. 20 Mg PO DAILY Calcium Acetate 667 Mg Capsule 2,001 Mg PO TIDWMEALS Vitals/I & O Vital Sign - Last 24 Hours 01/20/17 01/20/17 01/20/17 01/20/17 10:00 10:41 11:03 12:00 Temp 98.2 98.2 Pulse 78 81 80 Resp 14 12 15 14 B/P (MAP) 107/38 (61) 111/60 (77) 95/50 (65) Pulse Ox 100 96 92 O2 Delivery Nasal Cannula Room Air Nasal Cannula Nasal Cannula O2 Flow Rate 2.0 01/20/17 01/20/17 01/20/17 01/20/17 12:00 13:13 14:00 15:00 Pulse 72 74 72 Resp 14 19 16 B/P (MAP) 124/58 (80) 84/38 (53) 125/54 (77) Pulse Ox 100 100 100 O2 Delivery Nasal Cannula Nasal Cannula Nasal Cannula Nasal Cannula O2 Flow Rate 2.0 2.0 2.0 2.0 01/20/17 01/20/17 01/20/17 01/20/17 16:29 16:34 16:36 17:02 Temp 98.3 98.3 Pulse 84 93 Resp 19 23 15 B/P (MAP) 114/48 (70) 91/48 (62) Pulse Ox 92 97 92 O2 Delivery Room Air Nasal Cannula Room Air Nasal Cannula 01/20/17 01/20/17 01/20/17 01/20/17 17:04 18:18 19:00 20:00 Temp 98.1 98.1 Pulse 65 77 84 Resp 15 15 14 17 B/P (MAP) 100/46 (64) 91/39 (56) 107/36 (59) Pulse Ox 92 100 100 100 O2 Delivery Room Air Nasal Cannula Nasal Cannula Nasal Cannula O2 Flow Rate 3.0 2.0 2.0 01/20/17 01/20/17 01/20/17 01/20/17 20:00 20:34 20:34 21:00 Pulse 86 74 Resp 16 12 B/P (MAP) 107/62 102/43 (62) Pulse Ox 100 100 O2 Delivery Nasal Cannula Nasal Cannula Nasal Cannula O2 Flow Rate 2.0 2.0 2.0 01/20/17 01/20/17 01/20/17 01/20/17 21:34 22:00 23:00 23:59 Pulse 64 62 Resp 10 10 10 B/P (MAP) 81/43 (56) 81/43 (56) Pulse Ox 100 100 100 O2 Delivery Nasal Cannula Nasal Cannula Nasal Cannula Nasal Cannula O2 Flow Rate 2.0 2.0 2.0 2.0 01/21/17 01/21/17 01/21/17 01/21/17 00:00 00:00 01:00 02:00 Temp 97.7 97.7 Pulse 60 60 60 Resp 10 10 12 B/P (MAP) 87/49 (62) 87/52 (64) 95/46 (62) Pulse Ox 100 100 96 O2 Delivery Nasal Cannula Nasal Cannula Nasal Cannula Nasal Cannula O2 Flow Rate 2.0 2.0 2.0 2.0 01/21/17 01/21/17 01/21/17 01/21/17 03:00 04:00 04:00 05:00 Temp 97.7 97.7 Pulse 60 61 61 Resp 12 12 14 B/P (MAP) 87/45 (59) 105/48 (67) 98/42 (60) Pulse Ox 94 100 100 O2 Delivery Nasal Cannula Nasal Cannula Nasal Cannula Nasal Cannula O2 Flow Rate 2.0 2.0 2.0 2.0 01/21/17 01/21/17 01/21/17 01/21/17 05:45 06:00 07:00 08:00 Temp 97.4 97.4 Pulse 60 58 60 Resp 14 12 16 14 B/P (MAP) 103/45 (64) 100/49 (66) Pulse Ox 100 100 94 95 O2 Delivery Nasal Cannula Nasal Cannula Nasal Cannula Room Air O2 Flow Rate 2.0 2.0 2.0 01/21/17 01/21/17 08:00 09:00 Pulse 67 Resp 16 B/P (MAP) 91/45 (60) Pulse Ox 95 O2 Delivery Room Air Room Air Images Head CT 01/20: Findings: Moderate bilateral periventricular white matter hypodensities likely chronic small vessel ischemic disease. Small hypodensity identified in the right cerebellum similar to prior exam likely old infarct. The ventricles and sulci are normal for the patient's age. No mass-effect, intracranial mass, midline shift, hemorrhage or obvious acute infarction is identified. Basilar cisterns are patent. Bone windows demonstrate no significant calvarial abnormality. The visualized paranasal sinuses appear clear. Impression: 1. No acute intracranial process. RADHA WOODRUFF MD Jan 21, 2017 09:30
--- NOTE | 2017-01-21 10:12 | PDOC ---
Dialysis Progress Note Dialysis Note Dialysis Note Seen on Hemodialysis, tolerating treatment Okay for now Vitals on Hemodialysis: 76 afeb General Appearance: Ill appearing Awake: Alert Oriented x 0 Neck: No JVD or JVP Chest: CTA Silviano Heart: S1 S2; + Murmur Abdomen - Soft NTND Extremities - + Edema ESRD: Dialysis as below F 180 NR 3.5 Hrs 2 K 2.5 Ca 140 Na 35 HC03 Qb 350 + Qd 500+ Heparin 0 Units Uf 2-3 Kgs or to dry weight as tolerated May give 25-50 gms of 25% Albumin if needed to maintain Hemodynamic stability Treatment plan reviewed and discussed with crime specialist Will reval on HD Vitals Vital Signs Vital Signs Date Time Temp Pulse Resp B/P (MAP) Pulse Ox O2 Delivery O2 Flow Rate FiO2 01/21/17 09:00 67 16 91/45 (60) 95 Room Air 01/21/17 08:00 97.4 97.4 01/21/17 07:00 2.0 Labs Last Labs Laboratory Tests Test 01/20/17 06:10 01/21/17 05:50 White Blood Count 16.3 x10^3/uL (4.0-11.0) Red Blood Count 2.72 x10^6/uL (3.50-5.40) Hemoglobin 9.7 g/dL (12.0-15.5) Hematocrit 30.1 % (36.0-47.0) Mean Corpuscular Volume 111 fL (79-100) Mean Corpuscular Hemoglobin 36 pg (25-35) Mean Corpuscular Hemoglobin Concent 32 g/dL (31-37) Red Cell Distribution Width 19.5 % (11.5-14.5) Platelet Count 58 x10^3/uL (140-400) Prothrombin Time 16.1 SEC (11.7-14.0) 17.7 SEC (11.7-14.0) Prothromb Time International Ratio 1.4 (0.8-1.1) 1.6 (0.8-1.1) Heparin Anti-Xa Act, Unfractionated 0.48 IU/mL (0.30-0.70) Sodium Level 132 mmol/L (136-145) 130 mmol/L (136-145) Potassium Level 5.1 mmol/L (3.5-5.1) 5.5 mmol/L (3.5-5.1) Chloride Level 96 mmol/L (98-107) 94 mmol/L (98-107) Carbon Dioxide Level 25 mmol/L (21-32) 24 mmol/L (21-32) Anion Gap 11 (6-14) 12 (6-14) Blood Urea Nitrogen 31 mg/dL (7-20) 41 mg/dL (7-20) Creatinine 4.1 mg/dL (0.6-1.0) 4.8 mg/dL (0.6-1.0) Estimated GFR (Cockcroft-Gault) 10.7 8.9 Glucose Level 175 mg/dL (70-99) 182 mg/dL (70-99) Calcium Level 8.5 mg/dL (8.5-10.1) 8.7 mg/dL (8.5-10.1) Phosphorus Level 5.1 mg/dL (2.6-4.7) 5.3 mg/dL (2.6-4.7) Magnesium Level 2.4 mg/dL (1.8-2.4) 2.4 mg/dL (1.8-2.4) Albumin 2.4 g/dL (3.4-5.0) Laboratory Tests Test 01/21/17 05:50 Prothrombin Time 17.7 SEC (11.7-14.0) Prothromb Time International Ratio 1.6 (0.8-1.1) Sodium Level 130 mmol/L (136-145) Potassium Level 5.5 mmol/L (3.5-5.1) Chloride Level 94 mmol/L (98-107) Carbon Dioxide Level 24 mmol/L (21-32) Anion Gap 12 (6-14) Blood Urea Nitrogen 41 mg/dL (7-20) Creatinine 4.8 mg/dL (0.6-1.0) Estimated GFR (Cockcroft-Gault) 8.9 Glucose Level 182 mg/dL (70-99) Calcium Level 8.7 mg/dL (8.5-10.1) Phosphorus Level 5.3 mg/dL (2.6-4.7) Magnesium Level 2.4 mg/dL (1.8-2.4) Assessment Assessment Problems Medical Problems: (1) Non-STEMI (non-ST elevated myocardial infarction) Status: Acute Problems: Plan Plan of Care Problems Medical Problems: (1) Non-STEMI (non-ST elevated myocardial infarction) Status: Acute FLORESITA ACOSTA MD Jan 21, 2017 10:12
[2017-01-21] MEDS ORDERED: DIGOXIN IV 500 MCG/2 ML AMPUL. IV ONE (12:00)
[2017-01-21] MEDS: TPN PER PHARMACY MC PRN (13:26)
[2017-01-21] MEDS: OMEGA-3 FATTY ACIDS/FISH OIL 1,000 MG CAPSULE. PO SCH (15:23)
[2017-01-21] MEDS: ALLOPURINOL 100 MG TABLET. PO SCH (15:23)
[2017-01-21] MEDS: PANTOPRAZOLE 40 MG TABLET.DR. PO SCH (15:24)
[2017-01-21] MEDS: GABAPENTIN 100 MG CAPSULE. PO SCH ×2 (15:24→20:53)
[2017-01-21] MEDS: MELOXICAM 7.5 MG TABLET PO SCH (15:24)
[2017-01-21] MEDS: ASPIRIN ENTERIC COATED 81 MG TABLET.DR. PO SCH (15:25)
[2017-01-21] MEDS: PROPAFENONE 150 MG TABLET. PO SCH ×2 (15:25→20:53)
[2017-01-21] MEDS: ACETAMINOPHEN 325 MG TABLET. PO PRN (20:52)
[2017-01-21] MEDS: FOLIC/VIT B COMP W-C (RENAL) TABLET. PO SCH (20:52)
[2017-01-21] MEDS ORDERED: TOTAL PARENTERAL NUTRITION IV SCH ×9 (22:00)
[2017-01-21] MEDS ORDERED: AMINO ACIDS IV SCH ×9 (22:00)
[2017-01-21] MEDS ORDERED: DEXTROSE 70% IV SCH ×9 (22:00)
[2017-01-21] MEDS ORDERED: [UNRECOGNIZED DRUG - OTHER] IV SCH ×9 (22:00)
[2017-01-22] VITALS (25 sets, daily range): BP systolic 74–127; BP diastolic 28–63
[2017-01-22] MEDS: ACETAMINOPHEN 325 MG TABLET. PO PRN ×3 (03:17→19:29)
[2017-01-22] MEDS: HEPARIN 25,000UTS/500ML PREMIX 500 ML IV PRN (03:24)
[2017-01-22] MEDS: AMPICILLIN SODIUM 2 GM in IV NORMAL SALINE 100ML 100 ML IV SCH ×3 (05:30→21:35)
[2017-01-22] MEDS: CALCIUM ACETATE 667 MG CAPSULE PO SCH ×3 (08:00→17:40)
[2017-01-22 08:15] LABS: HEMATOCRIT 31.1 % (36.0-47.0); HEMOGLOBIN 9.8 g/dL (12.0-15.5); RED BLOOD COUNT 2.76 x10^6/uL (3.50-5.40); RED CELL DISTRIBUTION WIDTH 22.8 % (11.5-14.5); WHITE BLOOD COUNT 18.9 x10^3/uL (4.0-11.0)
--- NOTE | 2017-01-22 08:19 | PDOC ---
Infectious Disease Note Subjective Subjective Feeling better, very very weak ROS ROS no n/v/d/pain /sob Vital Sign Vital Signs Vital Signs Date Time Temp Pulse Resp B/P (MAP) Pulse Ox O2 Delivery O2 Flow Rate FiO2 01/22/17 06:00 62 17 125/45 (71) 94 Room Air 01/22/17 04:00 98.2 98.2 01/21/17 07:00 2.0 Physical Exam PHYSICAL EXAM GENERAL: NAD, Alert HEENT: PERRL, OC/OP NECK: Supple, no JVD, no LN LUNGS: Clear HEART: S1S2, no gallop, no murmur ABD: Soft, NT, no organomegaly, no rebound EXT: No edema, no cyanosis LEADER ASSEMBLER: Alert, 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, no focal neurologic deficit SKIN: No rash IV: ok Labs Lab Laboratory Tests Test 01/22/17 00:20 Glucose (Fingerstick) 155 mg/dL (70-99) Micro BC enterococcus Objective Assessment Enterococcus sepsis, 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 -TTE AV + mass on noncoronary cusp AV. MARY JANE 2 x 1 x 2 cm on AV & small mobile veg MV -Repeat BC NGTD, 01/16 Hypotension, on Levophed gtt Abnormal splenic lesion CT- c/w hemangioma; appreciate surgery's input Leukocytosis, trending down Encephalopathy, better Generalized aches - no history of PMR or fibromyalgia per . no joint inflammation Afib RVR + MRSA screen Recent UTI H/o C-diff Thrombocytopenia CKD/HD Plan Plan of Care Ampicillin (started 01/17) and gent for synergy Gent. Last dose 01/18 Gent trough 1.5 Monitor WBC, Temp D/w in very detail,, ideally she need surgery with 2.1 cm vegetation, but pt is not a surgical candidate, pros cons, complications , treatment etc discussed, all questions answered pt/ot d/w YENIFER Qureshi MD Jan 22, 2017 08:19
[2017-01-22 08:23] LABS: CALCIUM 8.6 mg/dL (8.5-10.1); CREATININE 3.9 mg/dL (0.6-1.0); GFR 11.3; MAGNESIUM 2.3 mg/dL (1.8-2.4); POTASSIUM 4.9 mmol/L (3.5-5.1)
[2017-01-22] MEDS: TPN PER PHARMACY MC PRN (09:58)
--- NOTE | 2017-01-22 10:10 | PDOC ---
Dialysis Progress Note Dialysis Note Dialysis Note Seen on Hemodialysis, tolerating treatment Okay for now Vitals on Hemodialysis: 112/46 (on Levophed) 84 afeb General Appearance: Ill appearing Awake: Alert Oriented x 1-2 Neck: No JVD or JVP Chest: CTA Silviano Heart: S1 S2; + Murmur Abdomen - Soft NTND - obese Extremities - + Edema ESRD: Dialysis as below F 180 NR 3.5 Hrs 3 K 2.5 Ca 140 Na 35 HC03 Qb 350 + Qd 500+ Heparin 0 Units Uf 3-4 Kgs or to dry weight as tolerated May give 25-50 gms of 25% Albumin if needed to maintain Hemodynamic stability Treatment plan reviewed and discussed with glove turner and former Will reval on HD Vitals Vital Signs Vital Signs Date Time Temp Pulse Resp B/P (MAP) Pulse Ox O2 Delivery O2 Flow Rate FiO2 01/22/17 06:00 62 17 125/45 (71) 94 Room Air 01/22/17 04:00 98.2 98.2 01/21/17 07:00 2.0 Labs Last Labs Laboratory Tests Test 01/21/17 05:50 01/22/17 00:20 01/22/17 08:00 Prothrombin Time 17.7 SEC (11.7-14.0) Prothromb Time International Ratio 1.6 (0.8-1.1) Sodium Level 130 mmol/L (136-145) 131 mmol/L (136-145) Potassium Level 5.5 mmol/L (3.5-5.1) 4.9 mmol/L (3.5-5.1) Chloride Level 94 mmol/L (98-107) 94 mmol/L (98-107) Carbon Dioxide Level 24 mmol/L (21-32) 27 mmol/L (21-32) Anion Gap 12 (6-14) 10 (6-14) Blood Urea Nitrogen 41 mg/dL (7-20) 30 mg/dL (7-20) Creatinine 4.8 mg/dL (0.6-1.0) 3.9 mg/dL (0.6-1.0) Estimated GFR (Cockcroft-Gault) 8.9 11.3 Glucose Level 182 mg/dL (70-99) 168 mg/dL (70-99) Calcium Level 8.7 mg/dL (8.5-10.1) 8.6 mg/dL (8.5-10.1) Phosphorus Level 5.3 mg/dL (2.6-4.7) Magnesium Level 2.4 mg/dL (1.8-2.4) 2.3 mg/dL (1.8-2.4) Glucose (Fingerstick) 155 mg/dL (70-99) White Blood Count 18.9 x10^3/uL (4.0-11.0) Red Blood Count 2.76 x10^6/uL (3.50-5.40) Hemoglobin 9.8 g/dL (12.0-15.5) Hematocrit 31.1 % (36.0-47.0) Mean Corpuscular Volume 113 fL (79-100) Mean Corpuscular Hemoglobin 35 pg (25-35) Mean Corpuscular Hemoglobin Concent 31 g/dL (31-37) Red Cell Distribution Width 22.8 % (11.5-14.5) Platelet Count 70 x10^3/uL (140-400) Random Gentamicin Level 1.6 mcg/mL Laboratory Tests Test 01/22/17 00:20 01/22/17 08:00 Glucose (Fingerstick) 155 mg/dL (70-99) White Blood Count 18.9 x10^3/uL (4.0-11.0) Red Blood Count 2.76 x10^6/uL (3.50-5.40) Hemoglobin 9.8 g/dL (12.0-15.5) Hematocrit 31.1 % (36.0-47.0) Mean Corpuscular Volume 113 fL (79-100) Mean Corpuscular Hemoglobin 35 pg (25-35) Mean Corpuscular Hemoglobin Concent 31 g/dL (31-37) Red Cell Distribution Width 22.8 % (11.5-14.5) Platelet Count 70 x10^3/uL (140-400) Sodium Level 131 mmol/L (136-145) Potassium Level 4.9 mmol/L (3.5-5.1) Chloride Level 94 mmol/L (98-107) Carbon Dioxide Level 27 mmol/L (21-32) Anion Gap 10 (6-14) Blood Urea Nitrogen 30 mg/dL (7-20) Creatinine 3.9 mg/dL (0.6-1.0) Estimated GFR (Cockcroft-Gault) 11.3 Glucose Level 168 mg/dL (70-99) Calcium Level 8.6 mg/dL (8.5-10.1) Magnesium Level 2.3 mg/dL (1.8-2.4) Random Gentamicin Level 1.6 mcg/mL Assessment Assessment Problems Medical Problems: (1) Non-STEMI (non-ST elevated myocardial infarction) Status: Acute Problems: Plan Plan of Care Problems Medical Problems: (1) Non-STEMI (non-ST elevated myocardial infarction) Status: Acute FLORESITA ACOSTA MD Jan 22, 2017 10:10
[2017-01-22] MEDS ORDERED: DIALYSIS PATIENT. MC PRN (10:15)
--- NOTE | 2017-01-22 10:27 | PDOC ---
PROGRESS NOTES Assessment Problems Medical Problems: (1) Non-STEMI (non-ST elevated myocardial infarction) Status: Acute Metabolic encephalopathy, improving. Generalized weakness. New onset Afib. CHF Renal failure on dialysis. Sepsis. DM HTN Anemia. Gout Obesity Plan Treat medical and cardiac disease. Discussed with her Subjective No complaints, denies pain Objective Vital Signs Date Time Temp Pulse Resp B/P (MAP) Pulse Ox O2 Delivery O2 Flow Rate FiO2 01/22/17 10:00 82 18 118/47 (70) 94 Room Air 01/22/17 08:00 98.5 98.5 01/21/17 07:00 2.0 PHYSICAL EXAM Alert. Oriented to place and person. PERRL. EOMI. CN: no focal findings. Muscle tone: normal. Muscle strength: 4/5 DTR: 1+ Plantar reflex: flexor Gait: not examined in bed. Sensory exam: no abnormal findings. No cerebellar signs elicited Review of Relevant I have reviewed the following items michelle (where applicable) has been applied. Labs Laboratory Tests Test 01/21/17 05:50 01/22/17 00:20 01/22/17 08:00 Prothrombin Time 17.7 SEC (11.7-14.0) Prothromb Time International Ratio 1.6 (0.8-1.1) Sodium Level 130 mmol/L (136-145) 131 mmol/L (136-145) Potassium Level 5.5 mmol/L (3.5-5.1) 4.9 mmol/L (3.5-5.1) Chloride Level 94 mmol/L (98-107) 94 mmol/L (98-107) Carbon Dioxide Level 24 mmol/L (21-32) 27 mmol/L (21-32) Anion Gap 12 (6-14) 10 (6-14) Blood Urea Nitrogen 41 mg/dL (7-20) 30 mg/dL (7-20) Creatinine 4.8 mg/dL (0.6-1.0) 3.9 mg/dL (0.6-1.0) Estimated GFR (Cockcroft-Gault) 8.9 11.3 Glucose Level 182 mg/dL (70-99) 168 mg/dL (70-99) Calcium Level 8.7 mg/dL (8.5-10.1) 8.6 mg/dL (8.5-10.1) Phosphorus Level 5.3 mg/dL (2.6-4.7) Magnesium Level 2.4 mg/dL (1.8-2.4) 2.3 mg/dL (1.8-2.4) Glucose (Fingerstick) 155 mg/dL (70-99) White Blood Count 18.9 x10^3/uL (4.0-11.0) Red Blood Count 2.76 x10^6/uL (3.50-5.40) Hemoglobin 9.8 g/dL (12.0-15.5) Hematocrit 31.1 % (36.0-47.0) Mean Corpuscular Volume 113 fL (79-100) Mean Corpuscular Hemoglobin 35 pg (25-35) Mean Corpuscular Hemoglobin Concent 31 g/dL (31-37) Red Cell Distribution Width 22.8 % (11.5-14.5) Platelet Count 70 x10^3/uL (140-400) Random Gentamicin Level 1.6 mcg/mL Laboratory Tests Test 01/22/17 00:20 01/22/17 08:00 Glucose (Fingerstick) 155 mg/dL (70-99) White Blood Count 18.9 x10^3/uL (4.0-11.0) Red Blood Count 2.76 x10^6/uL (3.50-5.40) Hemoglobin 9.8 g/dL (12.0-15.5) Hematocrit 31.1 % (36.0-47.0) Mean Corpuscular Volume 113 fL (79-100) Mean Corpuscular Hemoglobin 35 pg (25-35) Mean Corpuscular Hemoglobin Concent 31 g/dL (31-37) Red Cell Distribution Width 22.8 % (11.5-14.5) Platelet Count 70 x10^3/uL (140-400) Sodium Level 131 mmol/L (136-145) Potassium Level 4.9 mmol/L (3.5-5.1) Chloride Level 94 mmol/L (98-107) Carbon Dioxide Level 27 mmol/L (21-32) Anion Gap 10 (6-14) Blood Urea Nitrogen 30 mg/dL (7-20) Creatinine 3.9 mg/dL (0.6-1.0) Estimated GFR (Cockcroft-Gault) 11.3 Glucose Level 168 mg/dL (70-99) Calcium Level 8.6 mg/dL (8.5-10.1) Magnesium Level 2.3 mg/dL (1.8-2.4) Random Gentamicin Level 1.6 mcg/mL Microbiology 01/16/17 Blood Culture - Final, Complete NO GROWTH AFTER 5 DAYS Medications Current Medications Sodium Chloride 500 ml @ 500 mls/hr 1X ONCE IV Last administered on 06:45; Start 01/09/17 at 06:45; Stop 01/09/17 at 07:44; Status DC Diltiazem HCl (Cardizem) 10 mg 1X ONCE IVP Last administered on 01/09/17 07: 39; Start 01/09/17 at 07:30; Stop 01/09/17 at 07:31; Status DC Diltiazem HCl 125 mg/Dextrose 125 ml @ 0 mls/hr CONT PRN IV SEE I/O RECORD Last administered on 01/09/17 07:40; Start 01/09/17 at 07:30 Aspirin (Children'S Aspirin) 324 mg 1X ONCE PO Last administered on 01/09/17 08:15; Start 01/09/17 at 07:45; Stop 01/09/17 at 07:46; Status DC Darbepoetin Jerome (Aranesp) 60 mcg WEEKLYHS SQ Last administered on 01/16/17 21 :10; Start 01/09/17 at 21:00 Albumin Human 500 ml @ 125 mls/hr 1X ONCE IV Last administered on 01/09/17 13:02; Start 01/09/17 at 13:00; Stop 01/09/17 at 16:59; Status DC Albumin Human 500 ml @ 125 mls/hr 1X ONCE IV Last administered on 01/09/17 16:35; Start 01/09/17 at 16:00; Stop 01/09/17 at 19:59; Status DC Digoxin (Lanoxin) 500 mcg 1X ONCE IV Last administered on 01/09/17 13:03; Start 01/09/17 at 13:00; Stop 01/09/17 at 13:01; Status DC Sodium Chloride 1,000 ml @ 1,000 mls/hr Q1H PRN IV hypotension; Start 01/09/17 at 16:31; Stop 01/09/17 at 22:30; Status DC Sodium Chloride 1,000 ml @ 400 mls/hr Q2H30M PRN IV PATENCY; Start 01/09/17 at 16:31; Stop 01/10/17 at 04:30; Status DC Info (PHARMACY MONITORING -- do not chart) 1 each PRN DAILY PRN MC SEE COMMENTS ; Start 01/09/17 at 16:45; Status Cancel Fentanyl Citrate (Fentanyl 2ml Vial) 50 mcg PRN Q4HRS PRN IV PAIN Last administered on 01/21/17 16:55; Start 01/09/17 at 18:00 Oxycodone/ Acetaminophen (Percocet 5/325) 1 tab PRN Q4HRS PRN PO PAIN Last administered on 01/20/17 20:34; Start 01/09/17 at 18:00 Fentanyl Citrate (Fentanyl 2ml Vial) 50 mcg 1X ONCE IM ; Start 01/09/17 at 20: 00; Stop 01/09/17 at 20:01; Status Cancel Fentanyl Citrate (Fentanyl 2ml Vial) 50 mcg 1X ONCE IV Last administered on 19:57; Start 01/09/17 at 20:00; Stop 01/09/17 at 20:01; Status DC Allopurinol (Zyloprim) 100 mg DAILY PO Last administered on 01/21/17 15:23; Start 01/10/17 at 14:30 Aspirin (Ecotrin) 81 mg DAILY PO Last administered on 01/21/17 15:25; Start at 14:30 Atenolol (Tenormin) 50 mg DAILY PO Last administered on 01/12/17 09:09; Start 01/10/17 at 14:30; Stop 01/12/17 at 14:50; Status DC Calcium Acetate (Phoslo) 2,001 mg TIDWMEALS PO Last administered on 01/21/17 15 :23; Start 01/10/17 at 17:00 Vitamin B Complex/ Vitamin C (Tsering-Ray) 1 tab HS PO Last administered on 20:52; Start 01/10/17 at 21:00 Gabapentin (Neurontin) 100 mg BID PO Last administered on 01/21/17 20:53; Start 01/10/17 at 14:30 Meloxicam (Mobic) 7.5 mg DAILY PO Last administered on 01/21/17 15:24; Start at 14:30 Fish Oil (Fish Oil) 1,000 mg DAILY PO Last administered on 01/21/17 15:23; Start 01/11/17 at 09:00 Pantoprazole Sodium (Protonix) 40 mg DAILYAC PO Last administered on 01/21/17 15:24; Start 01/10/17 at 14:30 Digoxin (Lanoxin) 500 mcg 1X ONCE IV Last administered on 01/10/17 15:23; Start 01/10/17 at 15:30; Stop 01/10/17 at 15:31; Status DC Albumin Human 500 ml @ 125 mls/hr 1X ONCE IV Last administered on 01/10/17 15:22; Start 01/10/17 at 15:15; Stop 01/10/17 at 19:14; Status DC Lidocaine HCl (Xylocaine-Mpf 1% Vial) 2 ml STK-MED ONCE .ROUTE ; Start 01/11/17 at 08:47; Stop 01/11/17 at 08:48; Status DC Sodium Chloride 1,000 ml @ 1,000 mls/hr Q1H PRN IV hypotension; Start 01/11/17 at 08:55; Stop 01/11/17 at 14:54; Status DC Albumin Human 200 ml @ 200 mls/hr 1X PRN PRN IV Hypotension; Start 01/11/17 at 09:00; Stop 01/11/17 at 14:59; Status DC Acetaminophen (Tylenol) 500 mg 1X PRN PRN PO MILD PAIN / TEMP; Start 01/11/17 at 09:00; Stop 01/12/17 at 08:59; Status DC Diphenhydramine HCl (Benadryl) 25 mg 1X PRN PRN IV ITCHING Last administered on 01/11/17 13:30; Start 01/11/17 at 09:00; Stop 01/12/17 at 08:59; Status DC Info (PHARMACY MONITORING -- do not chart) 1 each PRN DAILY PRN MC SEE COMMENTS ; Start 01/11/17 at 09:00; Stop 01/18/17 at 08:14; Status DC Lidocaine HCl (Xylocaine-Mpf 1% Vial) 2 ml 1X ONCE INJ Last administered on 10:01; Start 01/11/17 at 09:00; Stop 01/11/17 at 09:02; Status DC Albumin Human 500 ml @ 125 mls/hr 1X ONCE IV Last administered on 01/11/17 11:50; Start 01/11/17 at 11:45; Stop 01/11/17 at 15:44; Status DC Nitroglycerin (Nitrostat) 0.4 mg STK-MED ONCE SL ; Start 01/11/17 at 12:07; Stop 01/11/17 at 12:08; Status DC Nitroglycerin (Nitrostat) 0.4 mg PRN Q5MIN PRN SL CHEST PAIN Last administered on 01/11/17 12:35; Start 01/11/17 at 12:15 Morphine Sulfate 3 mg 1X ONCE IV Last administered on 01/11/17 12:15; Start 01/11/17 at 12:15; Stop 01/11/17 at 12:16; Status DC Digoxin (Lanoxin) 250 mcg 1X ONCE IV Last administered on 01/11/17 12:34; Start 01/11/17 at 12:30; Stop 01/11/17 at 12:31; Status DC Fentanyl Citrate (Fentanyl 5ml Vial) 250 mcg STK-MED ONCE .ROUTE ; Start at 13:07; Stop 01/11/17 at 13:08; Status DC Midazolam HCl (Versed) 5 mg STK-MED ONCE .ROUTE ; Start 01/11/17 at 13:07; Stop 01/11/17 at 13:08; Status DC Iohexol (Omnipaque 350 Mg/ml) 100 ml STK-MED ONCE .ROUTE ; Start 01/11/17 at 13: 08; Stop 01/11/17 at 13:09; Status DC Heparin Sodium/ Sodium Chloride 500 ml @ As Directed STK-MED ONCE .ROUTE ; Start 01/11/17 at 13:09; Stop 01/11/17 at 13:10; Status DC Lidocaine HCl 20 ml STK-MED ONCE .ROUTE ; Start 01/11/17 at 13:09; Stop at 13:10; Status DC Heparin Sodium/ Sodium Chloride 1,000 unit 1X ONCE IART Last administered on 13:50; Start 01/11/17 at 13:45; Stop 01/11/17 at 13:46; Status DC Midazolam HCl (Versed) 1 mg 1X ONCE IV Last administered on 01/11/17 13:51; Start 01/11/17 at 13:45; Stop 01/11/17 at 13:46; Status DC Fentanyl Citrate (Fentanyl 5ml Vial) 50 mcg 1X ONCE IV Last administered on 13:51; Start 01/11/17 at 13:45; Stop 01/11/17 at 13:46; Status DC Iohexol (Omnipaque 350 Mg/ml) 81 ml 1X ONCE IART Last administered on 13:51; Start 01/11/17 at 13:45; Stop 01/11/17 at 13:46; Status DC Lidocaine HCl 12 ml 1X ONCE IJ Last administered on 01/11/17 13:50; Start at 13:45; Stop 01/11/17 at 13:46; Status DC Info (Do NOT chart on this entry -- for MONITORING) 1 each PRN DAILY PRN MC SEE COMMENTS; Start 01/11/17 at 14:00; Stop 01/13/17 at 13:59; Status DC Albumin Human 250 ml @ 62.5 mls/hr 1X ONCE IV Last administered on 01/11/17 14:15; Start 01/11/17 at 14:15; Stop 01/11/17 at 18:14; Status DC Digoxin (Lanoxin) 250 mcg 1X ONCE IV Last administered on 01/11/17 19:02; Start 01/11/17 at 18:45; Stop 01/11/17 at 18:46; Status DC Ondansetron HCl (Zofran) 8 mg PRN Q6HRS PRN IV NAUSEA/VOMITING Last administered on 01/15/17 04:04; Start 01/11/17 at 18:45 Enoxaparin Sodium (Lovenox 100mg Syringe) 90 mg Q24H SQ Last administered on 21:09; Start 01/11/17 at 20:00; Stop 01/15/17 at 11:08; Status DC Propafenone HCl (Rythmol) 75 mg BID PO Last administered on 01/21/17 20:53; Start 01/12/17 at 21:00 Norepinephrine Bitartrate 250 ml @ 0 mls/hr CONT PRN IV SEE I/O RECORD Last administered on 01/17/17 23:13; Start 01/12/17 at 15:45 Info (Anti-Coagulation Monitoring By Pharmacy) 1 each PRN DAILY PRN MC SEE COMMENTS Last administered on 01/20/17 08:28; Start 01/13/17 at 09:00 Magnesium Sulfate/ Dextrose 50 ml @ 25 mls/hr PRN DAILY PRN IV for Mag < 1.7 on am labs; Start 01/13/17 at 10:45 Sodium Chloride 1,000 ml @ 80 mls/hr [id number] IV Last administered on 10:50; Start 01/13/17 at 10:45; Stop 01/14/17 at 19:07; Status DC Sodium Chloride 500 ml @ 0 mls/hr QID PRN IV for MAP < 65 Last administered on 01/14/17 01:15; Start 01/13/17 at 10:45 Sodium Chloride 1,000 ml @ 1,000 mls/hr Q1H PRN IV hypotension; Start 01/14/17 at 09:11; Stop 01/14/17 at 15:10; Status DC Info (PHARMACY MONITORING -- do not chart) 1 each PRN DAILY PRN MC SEE COMMENTS ; Start 01/14/17 at 09:15; Status UNV Piperacillin Sod/ Tazobactam Sod 2.25 gm/Sodium Chloride 50 ml @ 100 mls/hr Q8HRS IV Last administered on 01/17/17 05:01; Start 01/14/17 at 12:30; Stop 01/17/17 at 14:30; Status DC Micafungin Sodium 100 mg/Dextrose 100 ml @ 100 mls/hr Q24H IV Last administered on 01/16/17 13:42; Start 01/14/17 at 13:00; Stop 01/17/17 at 14:30 ; Status DC Vancomycin HCl (Vanco Per Pharmacy) 1 each PRN DAILY PRN MC SEE COMMENTS Last administered on 01/17/17 11:01; Start 01/15/17 at 07:15; Stop 01/17/17 at 14:30; Status DC Vancomycin HCl 2 gm/Sodium Chloride 500 ml @ 250 mls/hr 1X ONCE IV Last administered on 01/15/17 07:55; Start 01/15/17 at 08:00; Stop 01/15/17 at 09:59 ; Status DC Metronidazole 100 ml @ 100 mls/hr Q8H IV Last administered on 01/16/17 00:03 ; Start 01/15/17 at 08:00; Stop 01/16/17 at 08:02; Status DC Iohexol (Omnipaque 300 Mg/ml) 75 ml 1X ONCE IV ; Start 01/15/17 at 08:00; Stop 01/15/17 at 08:01; Status DC Lidocaine/Sodium Bicarbonate (Buffered Lidocaine 1%) 3 ml 1X ONCE IJ Last administered on 01/15/17 09:00; Start 01/15/17 at 08:30; Stop 01/15/17 at 08:32 ; Status DC Heparin Sodium/ Sodium Chloride 60 unit 1X ONCE IV Last administered on 09:01; Start 01/15/17 at 08:30; Stop 01/15/17 at 08:32; Status DC Heparin Sodium (Porcine) (Heparin Sodium) 3,000 unit 1X ONCE IV Last administered on 01/15/17 20:21; Start 01/15/17 at 21:00; Stop 01/15/17 at 21:01 ; Status DC Heparin Sodium/ Dextrose 500 ml @ 0 mls/hr CONT PRN IV SEE I/O RECORD Last administered on 01/22/17 03:24; Start 01/15/17 at 21:00 Iohexol (Omnipaque 300 Mg/ml) 75 ml 1X ONCE IV Last administered on 01/15/17 12:15; Start 01/15/17 at 12:15; Stop 01/15/17 at 12:16; Status DC Info (Do NOT chart on this entry -- for MONITORING) 1 each PRN DAILY PRN MC SEE COMMENTS; Start 01/15/17 at 12:15; Stop 01/17/17 at 12:14; Status DC Vancomycin HCl 1 each 1X ONCE MC Last administered on 01/17/17 05:00; Start at 05:00; Stop 01/17/17 at 05:01; Status DC Info (PHARMACY MONITORING -- do not chart) 1 each PRN DAILY PRN MC SEE COMMENTS ; Start 01/16/17 at 07:45; Status UNV Info (PHARMACY MONITORING -- do not chart) 1 each PRN DAILY PRN MC SEE COMMENTS ; Start 01/16/17 at 07:45; Status UNV Info (PHARMACY MONITORING -- do not chart) 1 each PRN DAILY PRN MC SEE COMMENTS ; Start 01/16/17 at 07:45; Status UNV Sodium Chloride 1,000 ml @ 1,000 mls/hr Q1H PRN IV hypotension; Start 01/16/17 at 07:32; Stop 01/16/17 at 13:31; Status DC Albumin Human 200 ml @ 200 mls/hr 1X PRN PRN IV Hypotension; Start 01/16/17 at 07:45; Stop 01/16/17 at 13:44; Status DC Info (PHARMACY MONITORING -- do not chart) 1 each PRN DAILY PRN MC SEE COMMENTS ; Start 01/16/17 at 07:45; Status UNV Gentamicin Sulfate 1 each ONCE ONCE MC ; Start 01/16/17 at 08:00; Stop at 08:04; Status DC Gentamicin Sulfate 180 mg/ Sodium Chloride 104.5 ml @ 104.5 mls/ hr 1X ONCE IV Last administered on 01/16/17t 11:50; Start 01/16/17 at 09:00; Stop at 09:59; Status DC Lidocaine HCl (Xylocaine 2% Topical 5gm Tube) 1 edwardo 1X ONCE TP ; Start at 14:45; Stop 01/16/17 at 14:53; Status DC Lidocaine HCl (Viscous Lidocaine) 15 ml 1X ONCE MM ; Start 01/16/17 at 14:45; Stop 01/16/17 at 14:53; Status DC Benzocaine (Hurricaine One) 1spray 1X ONCE MM Last administered on 01/16/17t 14:45; Start 01/16/17 at 14:45; Stop 01/16/17 at 14:53; Status DC Ondansetron HCl (Zofran) 4 mg PRN Q6HRS PRN IV NAUSEA/VOMITING; Start 01/17/17 at 07:00; Stop 01/18/17 at 06:59; Status DC Fentanyl Citrate (Fentanyl 2ml Vial) 25 mcg PRN Q5MIN PRN IV MILD PAIN; Start 01/17/17 at 07:00; Stop 01/18/17 at 06:59; Status DC Fentanyl Citrate (Fentanyl 2ml Vial) 50 mcg PRN Q5MIN PRN IV MODERATE PAIN; Start 01/17/17 at 07:00; Stop 01/18/17 at 06:59; Status DC Morphine Sulfate 1 mg PRN Q10MIN PRN IV SEVERE PAIN; Start 01/17/17 at 07:00; Stop 01/18/17 at 06:59; Status DC Ringer's Solution 1,000 ml @ 30 mls/hr Q24H IV ; Start 01/17/17 at 07:00; Stop 01/17/17 at 18:59; Status DC Lidocaine HCl 2 ml PRN 1X PRN ID PRIOR TO IV START; Start 01/17/17 at 07:00; Stop 01/18/17 at 06:59; Status DC Hydromorphone HCl (Dilaudid) 0.5 mg PRN Q10MIN PRN IV SEV PAIN, Second choice; Start 01/17/17 at 07:00; Stop 01/18/17 at 06:59; Status DC Prochlorperazine Edisylate (Compazine) 5 mg PACU PRN PRN IV NAUSEA, MRX1; Start 01/17/17 at 07:00; Stop 01/18/17 at 06:59; Status DC Propofol 20 ml @ As Directed STK-MED ONCE IV ; Start 01/17/17 at 10:24; Stop 01/17 at 10:25; Status DC Phenylephrine HCl 1 mg STK-MED ONCE IV ; Start 01/17/17 at 10:24; Stop 01/17/17 at 10:25; Status DC Vancomycin HCl 500 mg/Sodium Chloride 100 ml @ 100 mls/hr QTUTHSA IV ; Start at 16:00; Stop 01/18/17 at 16:00; Status DC Ampicillin Sodium 2 gm/Sodium Chloride 100 ml @ 200 mls/hr Q8HRS IV Last administered on 01/22/17 05:30; Start 01/17/17 at 15:00 Gentamicin Sulfate 270 mg/ Sodium Chloride 106.75 ml @ 106.75 mls/hr Q24H IV ; Start 01/17/17 at 14:15; Status UNV Info 1 each PRN DAILY PRN MC SEE COMMENTS Last administered on 01/22/17 09:58; Start 01/17/17 at 21:30 Amino Acids/ Glycerin/ Electrolytes 1,000 ml @ 50 mls/hr Q20H IV Last administered on 01/17/17 21:46; Start 01/17/17 at 21:30; Stop 01/18/17 at 21:59; Status DC Sodium Chloride 1,000 ml @ 1,000 mls/hr Q1H PRN IV hypotension; Start 01/18/17 at 08:05; Stop 01/18/17 at 14:04; Status DC Sodium Chloride 1,000 ml @ 400 mls/hr Q2H30M PRN IV PATENCY; Start 01/18/17 at 08:05; Stop 01/18/17 at 20:04; Status DC Info (PHARMACY MONITORING -- do not chart) 1 each PRN DAILY PRN MC SEE COMMENTS ; Start 01/18/17 at 08:15 Info (PHARMACY MONITORING -- do not chart) 1 each PRN DAILY PRN MC SEE COMMENTS ; Start 01/18/17 at 08:15; Stop 01/18/17 at 08:15; Status DC Sodium Chloride 90 meq/Potassium Chloride 50 meq/ Potassium Phosphate 13.6 mmol/ Magnesium Sulfate 10 meq/ Calcium Gluconate 10 meq/ Multivitamins 10 ml/Chromium / Copper/Manganese/ Seleni/Zn 1 ml/ Total Parenteral Nutrition/Amino Acids/ Dextrose/ Fat Emulsion Intravenous 1,512 ml @ 63 mls/hr TPN CONT IV Last administered on 01/18/17 20:59; Start 01/18/17 at 22:00; Stop 01/19/17 at 21:59; Status DC Gentamicin Sulfate 270 mg/ Sodium Chloride 106.75 ml @ 106.75 mls/hr 1X ONCE IV Last administered on 01/18/17 16:51; Start 01/18/17 at 16:00; Stop 01/18/17 at 16:59; Status DC Sodium Chloride 90 meq/Potassium Chloride 50 meq/ Potassium Phosphate 13.6 mmol/ Magnesium Sulfate 10 meq/ Calcium Gluconate 10 meq/ Multivitamins 10 ml/Chromium / Copper/Manganese/ Seleni/Zn 1 ml/ Total Parenteral Nutrition/Amino Acids/ Dextrose/ Fat Emulsion Intravenous 1,320 ml @ 55 mls/hr TPN CONT IV Last administered on 01/19/17 21:18; Start 01/19/17 at 22:00; Stop 01/20/17 at 21:59; Status DC Warfarin Sodium (Coumadin) 5 mg 1X ONCE PO Last administered on 01/20/17 16:16 ; Start 01/20/17 at 16:00; Stop 01/20/17 at 16:01; Status DC Warfarin Sodium (Coumadin Per Physician) 1 each PRN DAILY PRN MC SEE COMMENTS Last administered on 01/20/17 13:13; Start 01/20/17 at 13:15 Sodium Chloride 90 meq/Potassium Chloride 50 meq/ Magnesium Sulfate 10 meq/ Calcium Gluconate 10 meq/ Multivitamins 10 ml/Chromium/ Copper/Manganese/ Seleni /Zn 1 ml/ Total Parenteral Nutrition/Amino Acids/Dextrose/ Fat Emulsion Intravenous 1,200 ml @ 50 mls/hr TPN CONT IV Last administered on 01/20/17 20 :35; Start 01/20/17 at 22:00; Stop 01/21/17 at 21:59; Status DC Sodium Chloride 1,000 ml @ 1,000 mls/hr Q1H PRN IV hypotension; Start 01/21/17 at 08:06; Stop 01/21/17 at 14:09; Status DC Sodium Chloride 1,000 ml @ 400 mls/hr Q2H30M PRN IV PATENCY; Start 01/21/17 at 08:06; Stop 01/21/17 at 20:05; Status DC Info (PHARMACY MONITORING -- do not chart) 1 each PRN DAILY PRN MC SEE COMMENTS ; Start 01/21/17 at 08:15; Status UNV Info (PHARMACY MONITORING -- do not chart) 1 each PRN DAILY PRN MC SEE COMMENTS ; Start 01/21/17 at 08:15; Status UNV Digoxin (Lanoxin) 250 mcg 1X ONCE IV Last administered on 01/21/17 12:13; Start 01/21/17 at 12:00; Stop 01/21/17 at 12:01; Status DC Sodium Chloride 120 meq/Potassium Chloride 20 meq/ Magnesium Sulfate 10 meq/ Calcium Gluconate 10 meq/ Multivitamins 10 ml/Chromium/ Copper/Manganese/ Seleni /Zn 1 ml/ Total Parenteral Nutrition/Amino Acids/Dextrose/ Fat Emulsion Intravenous 1,200 ml @ 50 mls/hr TPN CONT IV Last administered on 01/21/17 22 :12; Start 01/21/17 at 22:00; Stop 01/22/17 at 21:59 Acetaminophen (Tylenol) 650 mg PRN Q6HRS PRN PO MILD PAIN / TEMP Last administered on 01/22/17t 03:17; Start 01/21/17 at 20:45 Sodium Chloride 140 meq/Potassium Chloride 20 meq/ Magnesium Sulfate 10 meq/ Calcium Gluconate 10 meq/ Multivitamins 10 ml/Chromium/ Copper/Manganese/ Seleni /Zn 1 ml/ Total Parenteral Nutrition/Amino Acids/Dextrose/ Fat Emulsion Intravenous 1,200 ml @ 50 mls/hr TPN CONT IV ; Start 01/22/17 at 22:00; Stop at 21:59 Info (PHARMACY MONITORING -- do not chart) 1 each PRN DAILY PRN MC SEE COMMENTS ; Start 01/22/17 at 10:15 Active Scripts Active Reported Ferric Citrate 210 Mg Tablet 210 Mg PO Meloxicam 7.5 Mg Tablet 1 Tab PO DAILY Atenolol 50 Mg Tablet 1 Tab PO DAILY Tylenol (Acetaminophen) 325 Mg Tablet 500 Mg PO PRN Q6HRS PRN Aspir 81 (Aspirin) 81 Mg Tablet.dr 1 Tab PO DAILY Fish Oil 1,000 Mg Capsule ([place]-3 Fatty Acids/Fish Oil) 1 Each Capsule 1 Each PO BID Vitamin D2 (Ergocalciferol (Vitamin D2)) 50,000 Unit Capsule 50,000 Unit PO WEEKLY Allopurinol 100 Mg Tablet 1 Tab PO DAILY Nephro-Ray Tablet (Folic Acid/Vitamin B Comp W-C) 0.8 Mg Tablet 1 Tab PO HS Gabapentin 100 Mg Capsule 100 Mg PO BID Omeprazole 20 Mg Capsule.dr 20 Mg PO DAILY Calcium Acetate 667 Mg Capsule 2,001 Mg PO TIDWMEALS Vitals/I & O Vital Sign - Last 24 Hours 01/21/17 01/21/17 01/21/17 01/21/17 11:00 11:15 12:00 12:00 Temp 97.9 97.9 Pulse 92 92 94 Resp 14 12 16 B/P (MAP) 114/41 (65) 103/18 (46) 100/48 (65) Pulse Ox 100 98 100 O2 Delivery Room Air Room Air Room Air Room Air 01/21/17 01/21/17 01/21/17 01/21/17 12:13 12:13 13:00 14:00 Pulse 93 80 59 Resp 16 15 16 B/P (MAP) 96/38 105/44 (64) 105/59 (74) Pulse Ox 100 98 95 O2 Delivery Room Air Room Air Room Air 01/21/17 01/21/17 01/21/17 01/21/17 15:00 15:25 16:00 16:00 Pulse 62 60 60 Resp 15 12 B/P (MAP) 113/52 (72) 117/50 108/54 (72) Pulse Ox 96 94 O2 Delivery Room Air Room Air Room Air 01/21/17 01/21/17 01/21/17 01/21/17 16:55 17:00 17:25 18:00 Temp 98.0 98.0 Pulse 60 60 Resp 26 15 15 18 B/P (MAP) 98/54 (69) 120/57 (78) Pulse Ox 95 95 95 94 O2 Delivery Room Air Room Air Room Air Room Air 01/21/17 01/21/17 01/21/17 01/21/17 19:00 19:00 20:00 20:00 Temp 97.8 97.8 Pulse 60 60 60 Resp 15 26 30 B/P (MAP) 111/53 (72) 125/52 (76) 131/56 (81) Pulse Ox 92 94 92 O2 Delivery Room Air Room Air Room Air Room Air 01/21/17 01/21/17 01/21/17 01/21/17 20:53 21:00 22:00 23:00 Pulse 60 60 60 60 Resp 26 B/P (MAP) 100/40 106/59 (75) 107/43 (64) 93/46 (62) Pulse Ox 95 91 94 O2 Delivery Room Air Room Air Room Air 01/21/17 01/22/17 01/22/17 01/22/17 23:59 00:00 01:00 02:00 Temp 98.2 98.2 Pulse 63 60 60 Resp 26 B/P (MAP) 104/44 (64) 112/51 (71) 121/54 (76) Pulse Ox 91 91 93 O2 Delivery Room Air Room Air Room Air Room Air 01/22/17 01/22/17 01/22/17 01/22/17 03:00 04:00 04:00 05:00 Temp 98.2 98.2 Pulse 60 60 60 Resp 26 26 26 B/P (MAP) 119/42 (67) 95/51 (66) 99/29 (52) Pulse Ox 95 96 90 O2 Delivery Room Air Room Air Room Air Room Air 01/22/17 01/22/17 01/22/17 01/22/17 06:00 07:00 08:00 08:00 Temp 98.5 98.5 Pulse 62 88 86 Resp 17 16 16 B/P (MAP) 125/45 (71) 102/57 (72) 100/28 (52) Pulse Ox 94 95 94 O2 Delivery Room Air Room Air Room Air Room Air 01/22/17 01/22/17 01/22/17 09:00 09:15 10:00 Pulse 62 82 Resp 21 20 18 B/P (MAP) 94/28 (50) 100/28 (52) 118/47 (70) Pulse Ox 95 98 94 O2 Delivery Room Air Room Air Room Air RADHA WOODRUFF MD Jan 22, 2017 10:27
[2017-01-22] MEDS: ANTI-COAG MONITOR BY PHARMACY. MC PRN (10:46)
--- NOTE | 2017-01-22 11:15 | PDOC ---
PROGRESS NOTES Subjective Subjective Patient seen this morning, still c/o of weakness and fatigue. Still has poor appetite. Normal sinus rhythm with some PAC's. Patient received dialysis this morning, BP has been labile requiring a dose of Levophed this morning. Objective Objective Vital Signs Date Time Temp Pulse Resp B/P (MAP) Pulse Ox O2 Delivery O2 Flow Rate FiO2 01/22/17 11:00 96 16 104/42 (62) 94 Room Air 01/22/17 08:00 98.5 98.5 01/21/17 07:00 2.0 Physical Exam Physical Exam No significant changes to exam. Assessment Assessment Problems Medical Problems: (1) Non-STEMI (non-ST elevated myocardial infarction) Status: Acute Plan Plan of Care Hypotension: - BP has been labile requiring vasopressors; patient received a dose of Levophed this morning during dialysis - Giving a dose of Albumin with dialysis today to improve hemodynamics. - Will continue to monitor in ICU. Discussed patients care with Dr. Fitzpatrick; patient is not medically stable for cardiac surgery. Recommend continued IV ABX treatment for at least 4 weeks. 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 Patients has continued weakness, will continue TPN for now and monitor patient' s appetite. Warfarin started on 01/20; continue to monitor INR. Comment Review of Relevant I have reviewed the following items michelle (where applicable) has been applied. Labs Laboratory Tests Test 01/21/17 05:50 01/22/17 00:20 01/22/17 08:00 Prothrombin Time 17.7 SEC (11.7-14.0) Prothromb Time International Ratio 1.6 (0.8-1.1) Sodium Level 130 mmol/L (136-145) 131 mmol/L (136-145) Potassium Level 5.5 mmol/L (3.5-5.1) 4.9 mmol/L (3.5-5.1) Chloride Level 94 mmol/L (98-107) 94 mmol/L (98-107) Carbon Dioxide Level 24 mmol/L (21-32) 27 mmol/L (21-32) Anion Gap 12 (6-14) 10 (6-14) Blood Urea Nitrogen 41 mg/dL (7-20) 30 mg/dL (7-20) Creatinine 4.8 mg/dL (0.6-1.0) 3.9 mg/dL (0.6-1.0) Estimated GFR (Cockcroft-Gault) 8.9 11.3 Glucose Level 182 mg/dL (70-99) 168 mg/dL (70-99) Calcium Level 8.7 mg/dL (8.5-10.1) 8.6 mg/dL (8.5-10.1) Phosphorus Level 5.3 mg/dL (2.6-4.7) Magnesium Level 2.4 mg/dL (1.8-2.4) 2.3 mg/dL (1.8-2.4) Glucose (Fingerstick) 155 mg/dL (70-99) White Blood Count 18.9 x10^3/uL (4.0-11.0) Red Blood Count 2.76 x10^6/uL (3.50-5.40) Hemoglobin 9.8 g/dL (12.0-15.5) Hematocrit 31.1 % (36.0-47.0) Mean Corpuscular Volume 113 fL (79-100) Mean Corpuscular Hemoglobin 35 pg (25-35) Mean Corpuscular Hemoglobin Concent 31 g/dL (31-37) Red Cell Distribution Width 22.8 % (11.5-14.5) Platelet Count 70 x10^3/uL (140-400) Random Gentamicin Level 1.6 mcg/mL Laboratory Tests Test 01/22/17 00:20 01/22/17 08:00 Glucose (Fingerstick) 155 mg/dL (70-99) White Blood Count 18.9 x10^3/uL (4.0-11.0) Red Blood Count 2.76 x10^6/uL (3.50-5.40) Hemoglobin 9.8 g/dL (12.0-15.5) Hematocrit 31.1 % (36.0-47.0) Mean Corpuscular Volume 113 fL (79-100) Mean Corpuscular Hemoglobin 35 pg (25-35) Mean Corpuscular Hemoglobin Concent 31 g/dL (31-37) Red Cell Distribution Width 22.8 % (11.5-14.5) Platelet Count 70 x10^3/uL (140-400) Sodium Level 131 mmol/L (136-145) Potassium Level 4.9 mmol/L (3.5-5.1) Chloride Level 94 mmol/L (98-107) Carbon Dioxide Level 27 mmol/L (21-32) Anion Gap 10 (6-14) Blood Urea Nitrogen 30 mg/dL (7-20) Creatinine 3.9 mg/dL (0.6-1.0) Estimated GFR (Cockcroft-Gault) 11.3 Glucose Level 168 mg/dL (70-99) Calcium Level 8.6 mg/dL (8.5-10.1) Magnesium Level 2.3 mg/dL (1.8-2.4) Random Gentamicin Level 1.6 mcg/mL Microbiology 01/16/17 Blood Culture - Final, Complete NO GROWTH AFTER 5 DAYS Medications Current Medications Sodium Chloride 500 ml @ 500 mls/hr 1X ONCE IV Last administered on 06:45; Start 01/09/17 at 06:45; Stop 01/09/17 at 07:44; Status DC Diltiazem HCl (Cardizem) 10 mg 1X ONCE IVP Last administered on 01/09/17 07: 39; Start 01/09/17 at 07:30; Stop 01/09/17 at 07:31; Status DC Diltiazem HCl 125 mg/Dextrose 125 ml @ 0 mls/hr CONT PRN IV SEE I/O RECORD Last administered on 01/09/17 07:40; Start 01/09/17 at 07:30 Aspirin (Children'S Aspirin) 324 mg 1X ONCE PO Last administered on 01/09/17 08:15; Start 01/09/17 at 07:45; Stop 01/09/17 at 07:46; Status DC Darbepoetin Jerome (Aranesp) 60 mcg WEEKLYHS SQ Last administered on 01/16/17 21 :10; Start 01/09/17 at 21:00 Albumin Human 500 ml @ 125 mls/hr 1X ONCE IV Last administered on 01/09/17 13:02; Start 01/09/17 at 13:00; Stop 01/09/17 at 16:59; Status DC Albumin Human 500 ml @ 125 mls/hr 1X ONCE IV Last administered on 01/09/17 16:35; Start 01/09/17 at 16:00; Stop 01/09/17 at 19:59; Status DC Digoxin (Lanoxin) 500 mcg 1X ONCE IV Last administered on 01/09/17 13:03; Start 01/09/17 at 13:00; Stop 01/09/17 at 13:01; Status DC Sodium Chloride 1,000 ml @ 1,000 mls/hr Q1H PRN IV hypotension; Start 01/09/17 at 16:31; Stop 01/09/17 at 22:30; Status DC Sodium Chloride 1,000 ml @ 400 mls/hr Q2H30M PRN IV PATENCY; Start 01/09/17 at 16:31; Stop 01/10/17 at 04:30; Status DC Info (PHARMACY MONITORING -- do not chart) 1 each PRN DAILY PRN MC SEE COMMENTS ; Start 01/09/17 at 16:45; Status Cancel Fentanyl Citrate (Fentanyl 2ml Vial) 50 mcg PRN Q4HRS PRN IV PAIN Last administered on 01/21/17 16:55; Start 01/09/17 at 18:00 Oxycodone/ Acetaminophen (Percocet 5/325) 1 tab PRN Q4HRS PRN PO PAIN Last administered on 01/20/17 20:34; Start 01/09/17 at 18:00 Fentanyl Citrate (Fentanyl 2ml Vial) 50 mcg 1X ONCE IM ; Start 01/09/17 at 20: 00; Stop 01/09/17 at 20:01; Status Cancel Fentanyl Citrate (Fentanyl 2ml Vial) 50 mcg 1X ONCE IV Last administered on 19:57; Start 01/09/17 at 20:00; Stop 01/09/17 at 20:01; Status DC Allopurinol (Zyloprim) 100 mg DAILY PO Last administered on 01/21/17 15:23; Start 01/10/17 at 14:30 Aspirin (Ecotrin) 81 mg DAILY PO Last administered on 01/21/17 15:25; Start at 14:30 Atenolol (Tenormin) 50 mg DAILY PO Last administered on 01/12/17 09:09; Start 01/10/17 at 14:30; Stop 01/12/17 at 14:50; Status DC Calcium Acetate (Phoslo) 2,001 mg TIDWMEALS PO Last administered on 01/21/17 15 :23; Start 01/10/17 at 17:00 Vitamin B Complex/ Vitamin C (Tsering-Ray) 1 tab HS PO Last administered on 20:52; Start 01/10/17 at 21:00 Gabapentin (Neurontin) 100 mg BID PO Last administered on 01/21/17 20:53; Start 01/10/17 at 14:30 Meloxicam (Mobic) 7.5 mg DAILY PO Last administered on 01/21/17 15:24; Start at 14:30 Fish Oil (Fish Oil) 1,000 mg DAILY PO Last administered on 01/21/17 15:23; Start 01/11/17 at 09:00 Pantoprazole Sodium (Protonix) 40 mg DAILYAC PO Last administered on 01/21/17 15:24; Start 01/10/17 at 14:30 Digoxin (Lanoxin) 500 mcg 1X ONCE IV Last administered on 01/10/17 15:23; Start 01/10/17 at 15:30; Stop 01/10/17 at 15:31; Status DC Albumin Human 500 ml @ 125 mls/hr 1X ONCE IV Last administered on 01/10/17 15:22; Start 01/10/17 at 15:15; Stop 01/10/17 at 19:14; Status DC Lidocaine HCl (Xylocaine-Mpf 1% Vial) 2 ml STK-MED ONCE .ROUTE ; Start 01/11/17 at 08:47; Stop 01/11/17 at 08:48; Status DC Sodium Chloride 1,000 ml @ 1,000 mls/hr Q1H PRN IV hypotension; Start 01/11/17 at 08:55; Stop 01/11/17 at 14:54; Status DC Albumin Human 200 ml @ 200 mls/hr 1X PRN PRN IV Hypotension; Start 01/11/17 at 09:00; Stop 01/11/17 at 14:59; Status DC Acetaminophen (Tylenol) 500 mg 1X PRN PRN PO MILD PAIN / TEMP; Start 01/11/17 at 09:00; Stop 01/12/17 at 08:59; Status DC Diphenhydramine HCl (Benadryl) 25 mg 1X PRN PRN IV ITCHING Last administered on 01/11/17 13:30; Start 01/11/17 at 09:00; Stop 01/12/17 at 08:59; Status DC Info (PHARMACY MONITORING -- do not chart) 1 each PRN DAILY PRN MC SEE COMMENTS ; Start 01/11/17 at 09:00; Stop 01/18/17 at 08:14; Status DC Lidocaine HCl (Xylocaine-Mpf 1% Vial) 2 ml 1X ONCE INJ Last administered on 10:01; Start 01/11/17 at 09:00; Stop 01/11/17 at 09:02; Status DC Albumin Human 500 ml @ 125 mls/hr 1X ONCE IV Last administered on 01/11/17 11:50; Start 01/11/17 at 11:45; Stop 01/11/17 at 15:44; Status DC Nitroglycerin (Nitrostat) 0.4 mg STK-MED ONCE SL ; Start 01/11/17 at 12:07; Stop 01/11/17 at 12:08; Status DC Nitroglycerin (Nitrostat) 0.4 mg PRN Q5MIN PRN SL CHEST PAIN Last administered on 01/11/17 12:35; Start 01/11/17 at 12:15 Morphine Sulfate 3 mg 1X ONCE IV Last administered on 01/11/17 12:15; Start 01/11/17 at 12:15; Stop 01/11/17 at 12:16; Status DC Digoxin (Lanoxin) 250 mcg 1X ONCE IV Last administered on 01/11/17 12:34; Start 01/11/17 at 12:30; Stop 01/11/17 at 12:31; Status DC Fentanyl Citrate (Fentanyl 5ml Vial) 250 mcg STK-MED ONCE .ROUTE ; Start at 13:07; Stop 01/11/17 at 13:08; Status DC Midazolam HCl (Versed) 5 mg STK-MED ONCE .ROUTE ; Start 01/11/17 at 13:07; Stop 01/11/17 at 13:08; Status DC Iohexol (Omnipaque 350 Mg/ml) 100 ml STK-MED ONCE .ROUTE ; Start 01/11/17 at 13: 08; Stop 01/11/17 at 13:09; Status DC Heparin Sodium/ Sodium Chloride 500 ml @ As Directed STK-MED ONCE .ROUTE ; Start 01/11/17 at 13:09; Stop 01/11/17 at 13:10; Status DC Lidocaine HCl 20 ml STK-MED ONCE .ROUTE ; Start 01/11/17 at 13:09; Stop at 13:10; Status DC Heparin Sodium/ Sodium Chloride 1,000 unit 1X ONCE IART Last administered on 13:50; Start 01/11/17 at 13:45; Stop 01/11/17 at 13:46; Status DC Midazolam HCl (Versed) 1 mg 1X ONCE IV Last administered on 01/11/17 13:51; Start 01/11/17 at 13:45; Stop 01/11/17 at 13:46; Status DC Fentanyl Citrate (Fentanyl 5ml Vial) 50 mcg 1X ONCE IV Last administered on 13:51; Start 01/11/17 at 13:45; Stop 01/11/17 at 13:46; Status DC Iohexol (Omnipaque 350 Mg/ml) 81 ml 1X ONCE IART Last administered on 13:51; Start 01/11/17 at 13:45; Stop 01/11/17 at 13:46; Status DC Lidocaine HCl 12 ml 1X ONCE IJ Last administered on 01/11/17 13:50; Start at 13:45; Stop 01/11/17 at 13:46; Status DC Info (Do NOT chart on this entry -- for MONITORING) 1 each PRN DAILY PRN MC SEE COMMENTS; Start 01/11/17 at 14:00; Stop 01/13/17 at 13:59; Status DC Albumin Human 250 ml @ 62.5 mls/hr 1X ONCE IV Last administered on 01/11/17 14:15; Start 01/11/17 at 14:15; Stop 01/11/17 at 18:14; Status DC Digoxin (Lanoxin) 250 mcg 1X ONCE IV Last administered on 01/11/17 19:02; Start 01/11/17 at 18:45; Stop 01/11/17 at 18:46; Status DC Ondansetron HCl (Zofran) 8 mg PRN Q6HRS PRN IV NAUSEA/VOMITING Last administered on 01/15/17 04:04; Start 01/11/17 at 18:45 Enoxaparin Sodium (Lovenox 100mg Syringe) 90 mg Q24H SQ Last administered on 21:09; Start 01/11/17 at 20:00; Stop 01/15/17 at 11:08; Status DC Propafenone HCl (Rythmol) 75 mg BID PO Last administered on 01/21/17 20:53; Start 01/12/17 at 21:00 Norepinephrine Bitartrate 250 ml @ 0 mls/hr CONT PRN IV SEE I/O RECORD Last administered on 01/17/17 23:13; Start 01/12/17 at 15:45 Info (Anti-Coagulation Monitoring By Pharmacy) 1 each PRN DAILY PRN MC SEE COMMENTS Last administered on 01/22/17 10:46; Start 01/13/17 at 09:00 Magnesium Sulfate/ Dextrose 50 ml @ 25 mls/hr PRN DAILY PRN IV for Mag < 1.7 on am labs; Start 01/13/17 at 10:45 Sodium Chloride 1,000 ml @ 80 mls/hr [id number] IV Last administered on 10:50; Start 01/13/17 at 10:45; Stop 01/14/17 at 19:07; Status DC Sodium Chloride 500 ml @ 0 mls/hr QID PRN IV for MAP < 65 Last administered on 01/14/17 01:15; Start 01/13/17 at 10:45 Sodium Chloride 1,000 ml @ 1,000 mls/hr Q1H PRN IV hypotension; Start 01/14/17 at 09:11; Stop 01/14/17 at 15:10; Status DC Info (PHARMACY MONITORING -- do not chart) 1 each PRN DAILY PRN MC SEE COMMENTS ; Start 01/14/17 at 09:15; Status UNV Piperacillin Sod/ Tazobactam Sod 2.25 gm/Sodium Chloride 50 ml @ 100 mls/hr Q8HRS IV Last administered on 01/17/17 05:01; Start 01/14/17 at 12:30; Stop 01/17/17 at 14:30; Status DC Micafungin Sodium 100 mg/Dextrose 100 ml @ 100 mls/hr Q24H IV Last administered on 01/16/17 13:42; Start 01/14/17 at 13:00; Stop 01/17/17 at 14:30 ; Status DC Vancomycin HCl (Vanco Per Pharmacy) 1 each PRN DAILY PRN MC SEE COMMENTS Last administered on 01/17/17 11:01; Start 01/15/17 at 07:15; Stop 01/17/17 at 14:30; Status DC Vancomycin HCl 2 gm/Sodium Chloride 500 ml @ 250 mls/hr 1X ONCE IV Last administered on 01/15/17 07:55; Start 01/15/17 at 08:00; Stop 01/15/17 at 09:59 ; Status DC Metronidazole 100 ml @ 100 mls/hr Q8H IV Last administered on 01/16/17 00:03 ; Start 01/15/17 at 08:00; Stop 01/16/17 at 08:02; Status DC Iohexol (Omnipaque 300 Mg/ml) 75 ml 1X ONCE IV ; Start 01/15/17 at 08:00; Stop 01/15/17 at 08:01; Status DC Lidocaine/Sodium Bicarbonate (Buffered Lidocaine 1%) 3 ml 1X ONCE IJ Last administered on 01/15/17 09:00; Start 01/15/17 at 08:30; Stop 01/15/17 at 08:32 ; Status DC Heparin Sodium/ Sodium Chloride 60 unit 1X ONCE IV Last administered on 09:01; Start 01/15/17 at 08:30; Stop 01/15/17 at 08:32; Status DC Heparin Sodium (Porcine) (Heparin Sodium) 3,000 unit 1X ONCE IV Last administered on 01/15/17 20:21; Start 01/15/17 at 21:00; Stop 01/15/17 at 21:01 ; Status DC Heparin Sodium/ Dextrose 500 ml @ 0 mls/hr CONT PRN IV SEE I/O RECORD Last administered on 01/22/17 03:24; Start 01/15/17 at 21:00 Iohexol (Omnipaque 300 Mg/ml) 75 ml 1X ONCE IV Last administered on 01/15/17 12:15; Start 01/15/17 at 12:15; Stop 01/15/17 at 12:16; Status DC Info (Do NOT chart on this entry -- for MONITORING) 1 each PRN DAILY PRN MC SEE COMMENTS; Start 01/15/17 at 12:15; Stop 01/17/17 at 12:14; Status DC Vancomycin HCl 1 each 1X ONCE MC Last administered on 01/17/17t 05:00; Start at 05:00; Stop 01/17/17 at 05:01; Status DC Info (PHARMACY MONITORING -- do not chart) 1 each PRN DAILY PRN MC SEE COMMENTS ; Start 01/16/17 at 07:45; Status UNV Info (PHARMACY MONITORING -- do not chart) 1 each PRN DAILY PRN MC SEE COMMENTS ; Start 01/16/17 at 07:45; Status UNV Info (PHARMACY MONITORING -- do not chart) 1 each PRN DAILY PRN MC SEE COMMENTS ; Start 01/16/17 at 07:45; Status UNV Sodium Chloride 1,000 ml @ 1,000 mls/hr Q1H PRN IV hypotension; Start 01/16/17 at 07:32; Stop 01/16/17 at 13:31; Status DC Albumin Human 200 ml @ 200 mls/hr 1X PRN PRN IV Hypotension; Start 01/16/17 at 07:45; Stop 01/16/17 at 13:44; Status DC Info (PHARMACY MONITORING -- do not chart) 1 each PRN DAILY PRN MC SEE COMMENTS ; Start 01/16/17 at 07:45; Status UNV Gentamicin Sulfate 1 each ONCE ONCE MC ; Start 01/16/17 at 08:00; Stop at 08:04; Status DC Gentamicin Sulfate 180 mg/ Sodium Chloride 104.5 ml @ 104.5 mls/ hr 1X ONCE IV Last administered on 01/16/17 11:50; Start 01/16/17 at 09:00; Stop at 09:59; Status DC Lidocaine HCl (Xylocaine 2% Topical 5gm Tube) 1 edwardo 1X ONCE TP ; Start at 14:45; Stop 01/16/17 at 14:53; Status DC Lidocaine HCl (Viscous Lidocaine) 15 ml 1X ONCE MM ; Start 01/16/17 at 14:45; Stop 01/16/17 at 14:53; Status DC Benzocaine (Hurricaine One) 1spray 1X ONCE MM Last administered on 01/16/17t 14:45; Start 01/16/17 at 14:45; Stop 01/16/17 at 14:53; Status DC Ondansetron HCl (Zofran) 4 mg PRN Q6HRS PRN IV NAUSEA/VOMITING; Start 01/17/17 at 07:00; Stop 01/18/17 at 06:59; Status DC Fentanyl Citrate (Fentanyl 2ml Vial) 25 mcg PRN Q5MIN PRN IV MILD PAIN; Start 01/17/17 at 07:00; Stop 01/18/17 at 06:59; Status DC Fentanyl Citrate (Fentanyl 2ml Vial) 50 mcg PRN Q5MIN PRN IV MODERATE PAIN; Start 01/17/17 at 07:00; Stop 01/18/17 at 06:59; Status DC Morphine Sulfate 1 mg PRN Q10MIN PRN IV SEVERE PAIN; Start 01/17/17 at 07:00; Stop 01/18/17 at 06:59; Status DC Ringer's Solution 1,000 ml @ 30 mls/hr Q24H IV ; Start 01/17/17 at 07:00; Stop 01/17/17 at 18:59; Status DC Lidocaine HCl 2 ml PRN 1X PRN ID PRIOR TO IV START; Start 01/17/17 at 07:00; Stop 01/18/17 at 06:59; Status DC Hydromorphone HCl (Dilaudid) 0.5 mg PRN Q10MIN PRN IV SEV PAIN, Second choice; Start 01/17/17 at 07:00; Stop 01/18/17 at 06:59; Status DC Prochlorperazine Edisylate (Compazine) 5 mg PACU PRN PRN IV NAUSEA, MRX1; Start 01/17/17 at 07:00; Stop 01/18/17 at 06:59; Status DC Propofol 20 ml @ As Directed STK-MED ONCE IV ; Start 01/17/17 at 10:24; Stop 01/17 at 10:25; Status DC Phenylephrine HCl 1 mg STK-MED ONCE IV ; Start 01/17/17 at 10:24; Stop 01/17/17 at 10:25; Status DC Vancomycin HCl 500 mg/Sodium Chloride 100 ml @ 100 mls/hr QTUTHSA IV ; Start at 16:00; Stop 01/18/17 at 16:00; Status DC Ampicillin Sodium 2 gm/Sodium Chloride 100 ml @ 200 mls/hr Q8HRS IV Last administered on 01/22/17 05:30; Start 01/17/17 at 15:00 Gentamicin Sulfate 270 mg/ Sodium Chloride 106.75 ml @ 106.75 mls/hr Q24H IV ; Start 01/17/17 at 14:15; Status UNV Info 1 each PRN DAILY PRN MC SEE COMMENTS Last administered on 01/22/17 09:58; Start 01/17/17 at 21:30 Amino Acids/ Glycerin/ Electrolytes 1,000 ml @ 50 mls/hr Q20H IV Last administered on 01/17/17 21:46; Start 01/17/17 at 21:30; Stop 01/18/17 at 21:59; Status DC Sodium Chloride 1,000 ml @ 1,000 mls/hr Q1H PRN IV hypotension; Start 01/18/17 at 08:05; Stop 01/18/17 at 14:04; Status DC Sodium Chloride 1,000 ml @ 400 mls/hr Q2H30M PRN IV PATENCY; Start 01/18/17 at 08:05; Stop 01/18/17 at 20:04; Status DC Info (PHARMACY MONITORING -- do not chart) 1 each PRN DAILY PRN MC SEE COMMENTS ; Start 01/18/17 at 08:15 Info (PHARMACY MONITORING -- do not chart) 1 each PRN DAILY PRN MC SEE COMMENTS ; Start 01/18/17 at 08:15; Stop 01/18/17 at 08:15; Status DC Sodium Chloride 90 meq/Potassium Chloride 50 meq/ Potassium Phosphate 13.6 mmol/ Magnesium Sulfate 10 meq/ Calcium Gluconate 10 meq/ Multivitamins 10 ml/Chromium / Copper/Manganese/ Seleni/Zn 1 ml/ Total Parenteral Nutrition/Amino Acids/ Dextrose/ Fat Emulsion Intravenous 1,512 ml @ 63 mls/hr TPN CONT IV Last administered on 01/18/17 20:59; Start 01/18/17 at 22:00; Stop 01/19/17 at 21:59; Status DC Gentamicin Sulfate 270 mg/ Sodium Chloride 106.75 ml @ 106.75 mls/hr 1X ONCE IV Last administered on 01/18/17 16:51; Start 01/18/17 at 16:00; Stop 01/18/17 at 16:59; Status DC Sodium Chloride 90 meq/Potassium Chloride 50 meq/ Potassium Phosphate 13.6 mmol/ Magnesium Sulfate 10 meq/ Calcium Gluconate 10 meq/ Multivitamins 10 ml/Chromium / Copper/Manganese/ Seleni/Zn 1 ml/ Total Parenteral Nutrition/Amino Acids/ Dextrose/ Fat Emulsion Intravenous 1,320 ml @ 55 mls/hr TPN CONT IV Last administered on 01/19/17 21:18; Start 01/19/17 at 22:00; Stop 01/20/17 at 21:59; Status DC Warfarin Sodium (Coumadin) 5 mg 1X ONCE PO Last administered on 01/20/17 16:16 ; Start 01/20/17 at 16:00; Stop 01/20/17 at 16:01; Status DC Warfarin Sodium (Coumadin Per Physician) 1 each PRN DAILY PRN MC SEE COMMENTS Last administered on 01/22/17 10:44; Start 01/20/17 at 13:15 Sodium Chloride 90 meq/Potassium Chloride 50 meq/ Magnesium Sulfate 10 meq/ Calcium Gluconate 10 meq/ Multivitamins 10 ml/Chromium/ Copper/Manganese/ Seleni /Zn 1 ml/ Total Parenteral Nutrition/Amino Acids/Dextrose/ Fat Emulsion Intravenous 1,200 ml @ 50 mls/hr TPN CONT IV Last administered on 01/20/17 20 :35; Start 01/20/17 at 22:00; Stop 01/21/17 at 21:59; Status DC Sodium Chloride 1,000 ml @ 1,000 mls/hr Q1H PRN IV hypotension; Start 01/21/17 at 08:06; Stop 01/21/17 at 14:09; Status DC Sodium Chloride 1,000 ml @ 400 mls/hr Q2H30M PRN IV PATENCY; Start 01/21/17 at 08:06; Stop 01/21/17 at 20:05; Status DC Info (PHARMACY MONITORING -- do not chart) 1 each PRN DAILY PRN MC SEE COMMENTS ; Start 01/21/17 at 08:15; Status UNV Info (PHARMACY MONITORING -- do not chart) 1 each PRN DAILY PRN MC SEE COMMENTS ; Start 01/21/17 at 08:15; Status UNV Digoxin (Lanoxin) 250 mcg 1X ONCE IV Last administered on 01/21/17 12:13; Start 01/21/17 at 12:00; Stop 01/21/17 at 12:01; Status DC Sodium Chloride 120 meq/Potassium Chloride 20 meq/ Magnesium Sulfate 10 meq/ Calcium Gluconate 10 meq/ Multivitamins 10 ml/Chromium/ Copper/Manganese/ Seleni /Zn 1 ml/ Total Parenteral Nutrition/Amino Acids/Dextrose/ Fat Emulsion Intravenous 1,200 ml @ 50 mls/hr TPN CONT IV Last administered on 01/21/17 22 :12; Start 01/21/17 at 22:00; Stop 01/22/17 at 21:59 Acetaminophen (Tylenol) 650 mg PRN Q6HRS PRN PO MILD PAIN / TEMP Last administered on 01/22/17 03:17; Start 01/21/17 at 20:45 Sodium Chloride 140 meq/Potassium Chloride 20 meq/ Magnesium Sulfate 10 meq/ Calcium Gluconate 10 meq/ Multivitamins 10 ml/Chromium/ Copper/Manganese/ Seleni /Zn 1 ml/ Total Parenteral Nutrition/Amino Acids/Dextrose/ Fat Emulsion Intravenous 1,200 ml @ 50 mls/hr TPN CONT IV ; Start 01/22/17 at 22:00; Stop at 21:59 Info (PHARMACY MONITORING -- do not chart) 1 each PRN DAILY PRN MC SEE COMMENTS ; Start 01/22/17 at 10:15 Active Scripts Active Reported Ferric Citrate 210 Mg Tablet 210 Mg PO Meloxicam 7.5 Mg Tablet 1 Tab PO DAILY Atenolol 50 Mg Tablet 1 Tab PO DAILY Tylenol (Acetaminophen) 325 Mg Tablet 500 Mg PO PRN Q6HRS PRN Aspir 81 (Aspirin) 81 Mg Tablet. 1 Tab PO DAILY Fish Oil 1,000 Mg Capsule (Churdan-3 Fatty Acids/Fish Oil) 1 Each Capsule 1 Each PO BID Vitamin D2 (Ergocalciferol (Vitamin D2)) 50,000 Unit Capsule 50,000 Unit PO WEEKLY Allopurinol 100 Mg Tablet 1 Tab PO DAILY Nephro-Ray Tablet (Folic Acid/Vitamin B Comp W-C) 0.8 Mg Tablet 1 Tab PO HS Gabapentin 100 Mg Capsule 100 Mg PO BID Omeprazole 20 Mg Capsule. 20 Mg PO DAILY Calcium Acetate 667 Mg Capsule 2,001 Mg PO TIDWMEALS Vitals/I & O Vital Sign - Last 24 Hours 01/21/17 01/21/17 01/21/17 01/21/17 11:15 12:00 12:00 12:13 Temp 97.9 97.9 Pulse 92 94 Resp 12 16 16 B/P (MAP) 103/18 (46) 100/48 (65) Pulse Ox 98 100 100 O2 Delivery Room Air Room Air Room Air Room Air 01/21/17 01/21/17 01/21/17 01/21/17 12:13 13:00 14:00 15:00 Pulse 93 80 59 62 Resp 15 16 15 B/P (MAP) 96/38 105/44 (64) 105/59 (74) 113/52 (72) Pulse Ox 98 95 96 O2 Delivery Room Air Room Air Room Air 01/21/17 01/21/17 01/21/17 01/21/17 15:25 16:00 16:00 16:55 Pulse 60 60 Resp 12 26 B/P (MAP) 117/50 108/54 (72) Pulse Ox 94 95 O2 Delivery Room Air Room Air Room Air 01/21/17 01/21/17 01/21/17 01/21/17 17:00 17:25 18:00 19:00 Temp 98.0 98.0 Pulse 60 60 60 Resp 15 15 18 15 B/P (MAP) 98/54 (69) 120/57 (78) 111/53 (72) Pulse Ox 95 95 94 92 O2 Delivery Room Air Room Air Room Air Room Air 01/21/17 01/21/17 01/21/17 01/21/17 19:00 20:00 20:00 20:53 Temp 97.8 97.8 Pulse 60 60 60 Resp 26 30 B/P (MAP) 125/52 (76) 131/56 (81) 100/40 Pulse Ox 94 92 O2 Delivery Room Air Room Air Room Air 01/21/17 01/21/17 01/21/17 01/21/17 21:00 22:00 23:00 23:59 Pulse 60 60 60 Resp 26 26 26 B/P (MAP) 106/59 (75) 107/43 (64) 93/46 (62) Pulse Ox 95 91 94 O2 Delivery Room Air Room Air Room Air Room Air 01/22/17 01/22/17 01/22/17 01/22/17 00:00 01:00 02:00 03:00 Temp 98.2 98.2 Pulse 63 60 60 60 Resp 26 26 26 26 B/P (MAP) 104/44 (64) 112/51 (71) 121/54 (76) 119/42 (67) Pulse Ox 91 91 93 95 O2 Delivery Room Air Room Air Room Air Room Air 01/22/17 01/22/17 01/22/17 01/22/17 04:00 04:00 05:00 06:00 Temp 98.2 98.2 Pulse 60 60 62 Resp 26 26 17 B/P (MAP) 95/51 (66) 99/29 (52) 125/45 (71) Pulse Ox 96 90 94 O2 Delivery Room Air Room Air Room Air Room Air 01/22/17 01/22/17 01/22/17 01/22/17 07:00 08:00 08:00 09:00 Temp 98.5 98.5 Pulse 88 86 62 Resp 16 16 21 B/P (MAP) 102/57 (72) 100/28 (52) 94/28 (50) Pulse Ox 95 94 95 O2 Delivery Room Air Room Air Room Air Room Air 01/22/17 01/22/17 01/22/17 09:15 10:00 11:00 Pulse 82 96 Resp 20 18 16 B/P (MAP) 100/28 (52) 118/47 (70) 104/42 (62) Pulse Ox 98 94 94 O2 Delivery Room Air Room Air Room Air INEZ GRADY MD Jan 22, 2017 11:15
--- NOTE | 2017-01-22 11:54 | PDOC ---
PROGRESS NOTES Assessment Problems Medical Problems: (1) Non-STEMI (non-ST elevated myocardial infarction) Status: Acute Metabolic encephalopathy. Generalized weakness. New onset Afib. CHF Renal failure on dialysis. Sepsis. DM HTN Anemia. Gout Obesity Plan Treat medical and cardiac disease. Discussed with her Subjective Feels better Objective Vital Signs Date Time Temp Pulse Resp B/P (MAP) Pulse Ox O2 Delivery O2 Flow Rate FiO2 01/22/17 10:00 82 18 118/47 (70) 94 Room Air 01/22/17 08:00 98.5 98.5 01/21/17 07:00 2.0 PHYSICAL EXAM Alert. Oriented to place and person. PERRL. EOMI. CN: no focal findings. Muscle tone: normal. Muscle strength: 4/5 DTR: 1+ Plantar reflex: flexor Gait: not examined in bed. Sensory exam: no abnormal findings. No cerebellar signs elicited Review of Relevant I have reviewed the following items michelle (where applicable) has been applied. Labs Laboratory Tests Test 01/21/17 05:50 01/22/17 00:20 01/22/17 08:00 Prothrombin Time 17.7 SEC (11.7-14.0) Prothromb Time International Ratio 1.6 (0.8-1.1) Sodium Level 130 mmol/L (136-145) 131 mmol/L (136-145) Potassium Level 5.5 mmol/L (3.5-5.1) 4.9 mmol/L (3.5-5.1) Chloride Level 94 mmol/L (98-107) 94 mmol/L (98-107) Carbon Dioxide Level 24 mmol/L (21-32) 27 mmol/L (21-32) Anion Gap 12 (6-14) 10 (6-14) Blood Urea Nitrogen 41 mg/dL (7-20) 30 mg/dL (7-20) Creatinine 4.8 mg/dL (0.6-1.0) 3.9 mg/dL (0.6-1.0) Estimated GFR (Cockcroft-Gault) 8.9 11.3 Glucose Level 182 mg/dL (70-99) 168 mg/dL (70-99) Calcium Level 8.7 mg/dL (8.5-10.1) 8.6 mg/dL (8.5-10.1) Phosphorus Level 5.3 mg/dL (2.6-4.7) Magnesium Level 2.4 mg/dL (1.8-2.4) 2.3 mg/dL (1.8-2.4) Glucose (Fingerstick) 155 mg/dL (70-99) White Blood Count 18.9 x10^3/uL (4.0-11.0) Red Blood Count 2.76 x10^6/uL (3.50-5.40) Hemoglobin 9.8 g/dL (12.0-15.5) Hematocrit 31.1 % (36.0-47.0) Mean Corpuscular Volume 113 fL (79-100) Mean Corpuscular Hemoglobin 35 pg (25-35) Mean Corpuscular Hemoglobin Concent 31 g/dL (31-37) Red Cell Distribution Width 22.8 % (11.5-14.5) Platelet Count 70 x10^3/uL (140-400) Random Gentamicin Level 1.6 mcg/mL Laboratory Tests Test 01/22/17 00:20 01/22/17 08:00 Glucose (Fingerstick) 155 mg/dL (70-99) White Blood Count 18.9 x10^3/uL (4.0-11.0) Red Blood Count 2.76 x10^6/uL (3.50-5.40) Hemoglobin 9.8 g/dL (12.0-15.5) Hematocrit 31.1 % (36.0-47.0) Mean Corpuscular Volume 113 fL (79-100) Mean Corpuscular Hemoglobin 35 pg (25-35) Mean Corpuscular Hemoglobin Concent 31 g/dL (31-37) Red Cell Distribution Width 22.8 % (11.5-14.5) Platelet Count 70 x10^3/uL (140-400) Sodium Level 131 mmol/L (136-145) Potassium Level 4.9 mmol/L (3.5-5.1) Chloride Level 94 mmol/L (98-107) Carbon Dioxide Level 27 mmol/L (21-32) Anion Gap 10 (6-14) Blood Urea Nitrogen 30 mg/dL (7-20) Creatinine 3.9 mg/dL (0.6-1.0) Estimated GFR (Cockcroft-Gault) 11.3 Glucose Level 168 mg/dL (70-99) Calcium Level 8.6 mg/dL (8.5-10.1) Magnesium Level 2.3 mg/dL (1.8-2.4) Random Gentamicin Level 1.6 mcg/mL Microbiology 01/16/17 Blood Culture - Final, Complete NO GROWTH AFTER 5 DAYS Medications Current Medications Sodium Chloride 500 ml @ 500 mls/hr 1X ONCE IV Last administered on 06:45; Start 01/09/17 at 06:45; Stop 01/09/17 at 07:44; Status DC Diltiazem HCl (Cardizem) 10 mg 1X ONCE IVP Last administered on 01/09/17 07: 39; Start 01/09/17 at 07:30; Stop 01/09/17 at 07:31; Status DC Diltiazem HCl 125 mg/Dextrose 125 ml @ 0 mls/hr CONT PRN IV SEE I/O RECORD Last administered on 01/09/17 07:40; Start 01/09/17 at 07:30 Aspirin (Children'S Aspirin) 324 mg 1X ONCE PO Last administered on 01/09/17 08:15; Start 01/09/17 at 07:45; Stop 01/09/17 at 07:46; Status DC Darbepoetin Jerome (Aranesp) 60 mcg WEEKLYHS SQ Last administered on 01/16/17 21 :10; Start 01/09/17 at 21:00 Albumin Human 500 ml @ 125 mls/hr 1X ONCE IV Last administered on 01/09/17 13:02; Start 01/09/17 at 13:00; Stop 01/09/17 at 16:59; Status DC Albumin Human 500 ml @ 125 mls/hr 1X ONCE IV Last administered on 01/09/17 16:35; Start 01/09/17 at 16:00; Stop 01/09/17 at 19:59; Status DC Digoxin (Lanoxin) 500 mcg 1X ONCE IV Last administered on 01/09/17 13:03; Start 01/09/17 at 13:00; Stop 01/09/17 at 13:01; Status DC Sodium Chloride 1,000 ml @ 1,000 mls/hr Q1H PRN IV hypotension; Start 01/09/17 at 16:31; Stop 01/09/17 at 22:30; Status DC Sodium Chloride 1,000 ml @ 400 mls/hr Q2H30M PRN IV PATENCY; Start 01/09/17 at 16:31; Stop 01/10/17 at 04:30; Status DC Info (PHARMACY MONITORING -- do not chart) 1 each PRN DAILY PRN MC SEE COMMENTS ; Start 01/09/17 at 16:45; Status Cancel Fentanyl Citrate (Fentanyl 2ml Vial) 50 mcg PRN Q4HRS PRN IV PAIN Last administered on 01/21/17 16:55; Start 01/09/17 at 18:00 Oxycodone/ Acetaminophen (Percocet 5/325) 1 tab PRN Q4HRS PRN PO PAIN Last administered on 01/20/17 20:34; Start 01/09/17 at 18:00 Fentanyl Citrate (Fentanyl 2ml Vial) 50 mcg 1X ONCE IM ; Start 01/09/17 at 20: 00; Stop 01/09/17 at 20:01; Status Cancel Fentanyl Citrate (Fentanyl 2ml Vial) 50 mcg 1X ONCE IV Last administered on 19:57; Start 01/09/17 at 20:00; Stop 01/09/17 at 20:01; Status DC Allopurinol (Zyloprim) 100 mg DAILY PO Last administered on 01/21/17 15:23; Start 01/10/17 at 14:30 Aspirin (Ecotrin) 81 mg DAILY PO Last administered on 01/21/17 15:25; Start at 14:30 Atenolol (Tenormin) 50 mg DAILY PO Last administered on 01/12/17 09:09; Start 01/10/17 at 14:30; Stop 01/12/17 at 14:50; Status DC Calcium Acetate (Phoslo) 2,001 mg TIDWMEALS PO Last administered on 01/21/17 15 :23; Start 01/10/17 at 17:00 Vitamin B Complex/ Vitamin C (Tsering-Ray) 1 tab HS PO Last administered on 20:52; Start 01/10/17 at 21:00 Gabapentin (Neurontin) 100 mg BID PO Last administered on 01/21/17 20:53; Start 01/10/17 at 14:30 Meloxicam (Mobic) 7.5 mg DAILY PO Last administered on 01/21/17 15:24; Start at 14:30 Fish Oil (Fish Oil) 1,000 mg DAILY PO Last administered on 01/21/17 15:23; Start 01/11/17 at 09:00 Pantoprazole Sodium (Protonix) 40 mg DAILYAC PO Last administered on 01/21/17 15:24; Start 01/10/17 at 14:30 Digoxin (Lanoxin) 500 mcg 1X ONCE IV Last administered on 01/10/17 15:23; Start 01/10/17 at 15:30; Stop 01/10/17 at 15:31; Status DC Albumin Human 500 ml @ 125 mls/hr 1X ONCE IV Last administered on 01/10/17 15:22; Start 01/10/17 at 15:15; Stop 01/10/17 at 19:14; Status DC Lidocaine HCl (Xylocaine-Mpf 1% Vial) 2 ml STK-MED ONCE .ROUTE ; Start 01/11/17 at 08:47; Stop 01/11/17 at 08:48; Status DC Sodium Chloride 1,000 ml @ 1,000 mls/hr Q1H PRN IV hypotension; Start 01/11/17 at 08:55; Stop 01/11/17 at 14:54; Status DC Albumin Human 200 ml @ 200 mls/hr 1X PRN PRN IV Hypotension; Start 01/11/17 at 09:00; Stop 01/11/17 at 14:59; Status DC Acetaminophen (Tylenol) 500 mg 1X PRN PRN PO MILD PAIN / TEMP; Start 01/11/17 at 09:00; Stop 01/12/17 at 08:59; Status DC Diphenhydramine HCl (Benadryl) 25 mg 1X PRN PRN IV ITCHING Last administered on 01/11/17 13:30; Start 01/11/17 at 09:00; Stop 01/12/17 at 08:59; Status DC Info (PHARMACY MONITORING -- do not chart) 1 each PRN DAILY PRN MC SEE COMMENTS ; Start 01/11/17 at 09:00; Stop 01/18/17 at 08:14; Status DC Lidocaine HCl (Xylocaine-Mpf 1% Vial) 2 ml 1X ONCE INJ Last administered on 10:01; Start 01/11/17 at 09:00; Stop 01/11/17 at 09:02; Status DC Albumin Human 500 ml @ 125 mls/hr 1X ONCE IV Last administered on 01/11/17 11:50; Start 01/11/17 at 11:45; Stop 01/11/17 at 15:44; Status DC Nitroglycerin (Nitrostat) 0.4 mg STK-MED ONCE SL ; Start 01/11/17 at 12:07; Stop 01/11/17 at 12:08; Status DC Nitroglycerin (Nitrostat) 0.4 mg PRN Q5MIN PRN SL CHEST PAIN Last administered on 01/11/17 12:35; Start 01/11/17 at 12:15 Morphine Sulfate 3 mg 1X ONCE IV Last administered on 01/11/17 12:15; Start 01/11/17 at 12:15; Stop 01/11/17 at 12:16; Status DC Digoxin (Lanoxin) 250 mcg 1X ONCE IV Last administered on 01/11/17 12:34; Start 01/11/17 at 12:30; Stop 01/11/17 at 12:31; Status DC Fentanyl Citrate (Fentanyl 5ml Vial) 250 mcg STK-MED ONCE .ROUTE ; Start at 13:07; Stop 01/11/17 at 13:08; Status DC Midazolam HCl (Versed) 5 mg STK-MED ONCE .ROUTE ; Start 01/11/17 at 13:07; Stop 01/11/17 at 13:08; Status DC Iohexol (Omnipaque 350 Mg/ml) 100 ml STK-MED ONCE .ROUTE ; Start 01/11/17 at 13: 08; Stop 01/11/17 at 13:09; Status DC Heparin Sodium/ Sodium Chloride 500 ml @ As Directed STK-MED ONCE .ROUTE ; Start 01/11/17 at 13:09; Stop 01/11/17 at 13:10; Status DC Lidocaine HCl 20 ml STK-MED ONCE .ROUTE ; Start 01/11/17 at 13:09; Stop at 13:10; Status DC Heparin Sodium/ Sodium Chloride 1,000 unit 1X ONCE IART Last administered on 13:50; Start 01/11/17 at 13:45; Stop 01/11/17 at 13:46; Status DC Midazolam HCl (Versed) 1 mg 1X ONCE IV Last administered on 01/11/17 13:51; Start 01/11/17 at 13:45; Stop 01/11/17 at 13:46; Status DC Fentanyl Citrate (Fentanyl 5ml Vial) 50 mcg 1X ONCE IV Last administered on 13:51; Start 01/11/17 at 13:45; Stop 01/11/17 at 13:46; Status DC Iohexol (Omnipaque 350 Mg/ml) 81 ml 1X ONCE IART Last administered on 13:51; Start 01/11/17 at 13:45; Stop 01/11/17 at 13:46; Status DC Lidocaine HCl 12 ml 1X ONCE IJ Last administered on 01/11/17 13:50; Start at 13:45; Stop 01/11/17 at 13:46; Status DC Info (Do NOT chart on this entry -- for MONITORING) 1 each PRN DAILY PRN MC SEE COMMENTS; Start 01/11/17 at 14:00; Stop 01/13/17 at 13:59; Status DC Albumin Human 250 ml @ 62.5 mls/hr 1X ONCE IV Last administered on 01/11/17 14:15; Start 01/11/17 at 14:15; Stop 01/11/17 at 18:14; Status DC Digoxin (Lanoxin) 250 mcg 1X ONCE IV Last administered on 01/11/17 19:02; Start 01/11/17 at 18:45; Stop 01/11/17 at 18:46; Status DC Ondansetron HCl (Zofran) 8 mg PRN Q6HRS PRN IV NAUSEA/VOMITING Last administered on 01/15/17 04:04; Start 01/11/17 at 18:45 Enoxaparin Sodium (Lovenox 100mg Syringe) 90 mg Q24H SQ Last administered on 21:09; Start 01/11/17 at 20:00; Stop 01/15/17 at 11:08; Status DC Propafenone HCl (Rythmol) 75 mg BID PO Last administered on 01/21/17 20:53; Start 01/12/17 at 21:00 Norepinephrine Bitartrate 250 ml @ 0 mls/hr CONT PRN IV SEE I/O RECORD Last administered on 01/17/17 23:13; Start 01/12/17 at 15:45 Info (Anti-Coagulation Monitoring By Pharmacy) 1 each PRN DAILY PRN MC SEE COMMENTS Last administered on 01/20/17 08:28; Start 01/13/17 at 09:00 Magnesium Sulfate/ Dextrose 50 ml @ 25 mls/hr PRN DAILY PRN IV for Mag < 1.7 on am labs; Start 01/13/17 at 10:45 Sodium Chloride 1,000 ml @ 80 mls/hr [id number] IV Last administered on 10:50; Start 01/13/17 at 10:45; Stop 01/14/17 at 19:07; Status DC Sodium Chloride 500 ml @ 0 mls/hr QID PRN IV for MAP < 65 Last administered on 01/14/17 01:15; Start 01/13/17 at 10:45 Sodium Chloride 1,000 ml @ 1,000 mls/hr Q1H PRN IV hypotension; Start 01/14/17 at 09:11; Stop 01/14/17 at 15:10; Status DC Info (PHARMACY MONITORING -- do not chart) 1 each PRN DAILY PRN MC SEE COMMENTS ; Start 01/14/17 at 09:15; Status UNV Piperacillin Sod/ Tazobactam Sod 2.25 gm/Sodium Chloride 50 ml @ 100 mls/hr Q8HRS IV Last administered on 01/17/17 05:01; Start 01/14/17 at 12:30; Stop 01/17/17 at 14:30; Status DC Micafungin Sodium 100 mg/Dextrose 100 ml @ 100 mls/hr Q24H IV Last administered on 01/16/17 13:42; Start 01/14/17 at 13:00; Stop 01/17/17 at 14:30 ; Status DC Vancomycin HCl (Vanco Per Pharmacy) 1 each PRN DAILY PRN MC SEE COMMENTS Last administered on 01/17/17 11:01; Start 01/15/17 at 07:15; Stop 01/17/17 at 14:30; Status DC Vancomycin HCl 2 gm/Sodium Chloride 500 ml @ 250 mls/hr 1X ONCE IV Last administered on 01/15/17 07:55; Start 01/15/17 at 08:00; Stop 01/15/17 at 09:59 ; Status DC Metronidazole 100 ml @ 100 mls/hr Q8H IV Last administered on 01/16/17 00:03 ; Start 01/15/17 at 08:00; Stop 01/16/17 at 08:02; Status DC Iohexol (Omnipaque 300 Mg/ml) 75 ml 1X ONCE IV ; Start 01/15/17 at 08:00; Stop 01/15/17 at 08:01; Status DC Lidocaine/Sodium Bicarbonate (Buffered Lidocaine 1%) 3 ml 1X ONCE IJ Last administered on 01/15/17 09:00; Start 01/15/17 at 08:30; Stop 01/15/17 at 08:32 ; Status DC Heparin Sodium/ Sodium Chloride 60 unit 1X ONCE IV Last administered on 09:01; Start 01/15/17 at 08:30; Stop 01/15/17 at 08:32; Status DC Heparin Sodium (Porcine) (Heparin Sodium) 3,000 unit 1X ONCE IV Last administered on 01/15/17 20:21; Start 01/15/17 at 21:00; Stop 01/15/17 at 21:01 ; Status DC Heparin Sodium/ Dextrose 500 ml @ 0 mls/hr CONT PRN IV SEE I/O RECORD Last administered on 01/22/17 03:24; Start 01/15/17 at 21:00 Iohexol (Omnipaque 300 Mg/ml) 75 ml 1X ONCE IV Last administered on 01/15/17 12:15; Start 01/15/17 at 12:15; Stop 01/15/17 at 12:16; Status DC Info (Do NOT chart on this entry -- for MONITORING) 1 each PRN DAILY PRN MC SEE COMMENTS; Start 01/15/17 at 12:15; Stop 01/17/17 at 12:14; Status DC Vancomycin HCl 1 each 1X ONCE MC Last administered on 01/17/17 05:00; Start at 05:00; Stop 01/17/17 at 05:01; Status DC Info (PHARMACY MONITORING -- do not chart) 1 each PRN DAILY PRN MC SEE COMMENTS ; Start 01/16/17 at 07:45; Status UNV Info (PHARMACY MONITORING -- do not chart) 1 each PRN DAILY PRN MC SEE COMMENTS ; Start 01/16/17 at 07:45; Status UNV Info (PHARMACY MONITORING -- do not chart) 1 each PRN DAILY PRN MC SEE COMMENTS ; Start 01/16/17 at 07:45; Status UNV Sodium Chloride 1,000 ml @ 1,000 mls/hr Q1H PRN IV hypotension; Start 01/16/17 at 07:32; Stop 01/16/17 at 13:31; Status DC Albumin Human 200 ml @ 200 mls/hr 1X PRN PRN IV Hypotension; Start 01/16/17 at 07:45; Stop 01/16/17 at 13:44; Status DC Info (PHARMACY MONITORING -- do not chart) 1 each PRN DAILY PRN MC SEE COMMENTS ; Start 01/16/17 at 07:45; Status UNV Gentamicin Sulfate 1 each ONCE ONCE MC ; Start 01/16/17 at 08:00; Stop at 08:04; Status DC Gentamicin Sulfate 180 mg/ Sodium Chloride 104.5 ml @ 104.5 mls/ hr 1X ONCE IV Last administered on 01/16/17t 11:50; Start 01/16/17 at 09:00; Stop at 09:59; Status DC Lidocaine HCl (Xylocaine 2% Topical 5gm Tube) 1 edwardo 1X ONCE TP ; Start at 14:45; Stop 01/16/17 at 14:53; Status DC Lidocaine HCl (Viscous Lidocaine) 15 ml 1X ONCE MM ; Start 01/16/17 at 14:45; Stop 01/16/17 at 14:53; Status DC Benzocaine (Hurricaine One) 1spray 1X ONCE MM Last administered on 01/16/17t 14:45; Start 01/16/17 at 14:45; Stop 01/16/17 at 14:53; Status DC Ondansetron HCl (Zofran) 4 mg PRN Q6HRS PRN IV NAUSEA/VOMITING; Start 01/17/17 at 07:00; Stop 01/18/17 at 06:59; Status DC Fentanyl Citrate (Fentanyl 2ml Vial) 25 mcg PRN Q5MIN PRN IV MILD PAIN; Start 01/17/17 at 07:00; Stop 01/18/17 at 06:59; Status DC Fentanyl Citrate (Fentanyl 2ml Vial) 50 mcg PRN Q5MIN PRN IV MODERATE PAIN; Start 01/17/17 at 07:00; Stop 01/18/17 at 06:59; Status DC Morphine Sulfate 1 mg PRN Q10MIN PRN IV SEVERE PAIN; Start 01/17/17 at 07:00; Stop 01/18/17 at 06:59; Status DC Ringer's Solution 1,000 ml @ 30 mls/hr Q24H IV ; Start 01/17/17 at 07:00; Stop 01/17/17 at 18:59; Status DC Lidocaine HCl 2 ml PRN 1X PRN ID PRIOR TO IV START; Start 01/17/17 at 07:00; Stop 01/18/17 at 06:59; Status DC Hydromorphone HCl (Dilaudid) 0.5 mg PRN Q10MIN PRN IV SEV PAIN, Second choice; Start 01/17/17 at 07:00; Stop 01/18/17 at 06:59; Status DC Prochlorperazine Edisylate (Compazine) 5 mg PACU PRN PRN IV NAUSEA, MRX1; Start 01/17/17 at 07:00; Stop 01/18/17 at 06:59; Status DC Propofol 20 ml @ As Directed STK-MED ONCE IV ; Start 01/17/17 at 10:24; Stop 01/17 at 10:25; Status DC Phenylephrine HCl 1 mg STK-MED ONCE IV ; Start 01/17/17 at 10:24; Stop 01/17/17 at 10:25; Status DC Vancomycin HCl 500 mg/Sodium Chloride 100 ml @ 100 mls/hr QTUTHSA IV ; Start at 16:00; Stop 01/18/17 at 16:00; Status DC Ampicillin Sodium 2 gm/Sodium Chloride 100 ml @ 200 mls/hr Q8HRS IV Last administered on 01/22/17 05:30; Start 01/17/17 at 15:00 Gentamicin Sulfate 270 mg/ Sodium Chloride 106.75 ml @ 106.75 mls/hr Q24H IV ; Start 01/17/17 at 14:15; Status UNV Info 1 each PRN DAILY PRN MC SEE COMMENTS Last administered on 9/6/17at 09:58; Start 01/17/17 at 21:30 Amino Acids/ Glycerin/ Electrolytes 1,000 ml @ 50 mls/hr Q20H IV Last administered on 01/17/17 21:46; Start 01/17/17 at 21:30; Stop 01/18/17 at 21:59; Status DC Sodium Chloride 1,000 ml @ 1,000 mls/hr Q1H PRN IV hypotension; Start 01/18/17 at 08:05; Stop 01/18/17 at 14:04; Status DC Sodium Chloride 1,000 ml @ 400 mls/hr Q2H30M PRN IV PATENCY; Start 01/18/17 at 08:05; Stop 01/18/17 at 20:04; Status DC Info (PHARMACY MONITORING -- do not chart) 1 each PRN DAILY PRN MC SEE COMMENTS ; Start 01/18/17 at 08:15 Info (PHARMACY MONITORING -- do not chart) 1 each PRN DAILY PRN MC SEE COMMENTS ; Start 01/18/17 at 08:15; Stop 01/18/17 at 08:15; Status DC Sodium Chloride 90 meq/Potassium Chloride 50 meq/ Potassium Phosphate 13.6 mmol/ Magnesium Sulfate 10 meq/ Calcium Gluconate 10 meq/ Multivitamins 10 ml/Chromium / Copper/Manganese/ Seleni/Zn 1 ml/ Total Parenteral Nutrition/Amino Acids/ Dextrose/ Fat Emulsion Intravenous 1,512 ml @ 63 mls/hr TPN CONT IV Last administered on 01/18/17 20:59; Start 01/18/17 at 22:00; Stop 01/19/17 at 21:59; Status DC Gentamicin Sulfate 270 mg/ Sodium Chloride 106.75 ml @ 106.75 mls/hr 1X ONCE IV Last administered on 01/18/17 16:51; Start 01/18/17 at 16:00; Stop 01/18/17 at 16:59; Status DC Sodium Chloride 90 meq/Potassium Chloride 50 meq/ Potassium Phosphate 13.6 mmol/ Magnesium Sulfate 10 meq/ Calcium Gluconate 10 meq/ Multivitamins 10 ml/Chromium / Copper/Manganese/ Seleni/Zn 1 ml/ Total Parenteral Nutrition/Amino Acids/ Dextrose/ Fat Emulsion Intravenous 1,320 ml @ 55 mls/hr TPN CONT IV Last administered on 01/19/17 21:18; Start 01/19/17 at 22:00; Stop 01/20/17 at 21:59; Status DC Warfarin Sodium (Coumadin) 5 mg 1X ONCE PO Last administered on 01/20/17 16:16 ; Start 01/20/17 at 16:00; Stop 01/20/17 at 16:01; Status DC Warfarin Sodium (Coumadin Per Physician) 1 each PRN DAILY PRN MC SEE COMMENTS Last administered on 01/20/17 13:13; Start 01/20/17 at 13:15 Sodium Chloride 90 meq/Potassium Chloride 50 meq/ Magnesium Sulfate 10 meq/ Calcium Gluconate 10 meq/ Multivitamins 10 ml/Chromium/ Copper/Manganese/ Seleni /Zn 1 ml/ Total Parenteral Nutrition/Amino Acids/Dextrose/ Fat Emulsion Intravenous 1,200 ml @ 50 mls/hr TPN CONT IV Last administered on 01/20/17 20 :35; Start 01/20/17 at 22:00; Stop 01/21/17 at 21:59; Status DC Sodium Chloride 1,000 ml @ 1,000 mls/hr Q1H PRN IV hypotension; Start 01/21/17 at 08:06; Stop 01/21/17 at 14:09; Status DC Sodium Chloride 1,000 ml @ 400 mls/hr Q2H30M PRN IV PATENCY; Start 01/21/17 at 08:06; Stop 01/21/17 at 20:05; Status DC Info (PHARMACY MONITORING -- do not chart) 1 each PRN DAILY PRN MC SEE COMMENTS ; Start 01/21/17 at 08:15; Status UNV Info (PHARMACY MONITORING -- do not chart) 1 each PRN DAILY PRN MC SEE COMMENTS ; Start 01/21/17 at 08:15; Status UNV Digoxin (Lanoxin) 250 mcg 1X ONCE IV Last administered on 01/21/17 12:13; Start 01/21/17 at 12:00; Stop 01/21/17 at 12:01; Status DC Sodium Chloride 120 meq/Potassium Chloride 20 meq/ Magnesium Sulfate 10 meq/ Calcium Gluconate 10 meq/ Multivitamins 10 ml/Chromium/ Copper/Manganese/ Seleni /Zn 1 ml/ Total Parenteral Nutrition/Amino Acids/Dextrose/ Fat Emulsion Intravenous 1,200 ml @ 50 mls/hr TPN CONT IV Last administered on 01/21/17 22 :12; Start 01/21/17 at 22:00; Stop 01/22/17 at 21:59 Acetaminophen (Tylenol) 650 mg PRN Q6HRS PRN PO MILD PAIN / TEMP Last administered on 01/22/17t 03:17; Start 01/21/17 at 20:45 Sodium Chloride 140 meq/Potassium Chloride 20 meq/ Magnesium Sulfate 10 meq/ Calcium Gluconate 10 meq/ Multivitamins 10 ml/Chromium/ Copper/Manganese/ Seleni /Zn 1 ml/ Total Parenteral Nutrition/Amino Acids/Dextrose/ Fat Emulsion Intravenous 1,200 ml @ 50 mls/hr TPN CONT IV ; Start 01/22/17 at 22:00; Stop at 21:59 Info (PHARMACY MONITORING -- do not chart) 1 each PRN DAILY PRN MC SEE COMMENTS ; Start 01/22/17 at 10:15 Active Scripts Active Reported Ferric Citrate 210 Mg Tablet 210 Mg PO Meloxicam 7.5 Mg Tablet 1 Tab PO DAILY Atenolol 50 Mg Tablet 1 Tab PO DAILY Tylenol (Acetaminophen) 325 Mg Tablet 500 Mg PO PRN Q6HRS PRN Aspir 81 (Aspirin) 81 Mg Tablet.dr 1 Tab PO DAILY Fish Oil 1,000 Mg Capsule ([place]-3 Fatty Acids/Fish Oil) 1 Each Capsule 1 Each PO BID Vitamin D2 (Ergocalciferol (Vitamin D2)) 50,000 Unit Capsule 50,000 Unit PO WEEKLY Allopurinol 100 Mg Tablet 1 Tab PO DAILY Nephro-Ray Tablet (Folic Acid/Vitamin B Comp W-C) 0.8 Mg Tablet 1 Tab PO HS Gabapentin 100 Mg Capsule 100 Mg PO BID Omeprazole 20 Mg Capsule.dr 20 Mg PO DAILY Calcium Acetate 667 Mg Capsule 2,001 Mg PO TIDWMEALS Vitals/I & O Vital Sign - Last 24 Hours 01/21/17 01/21/17 01/21/17 01/21/17 12:00 12:00 12:13 12:13 Temp 97.9 97.9 Pulse 94 93 Resp 16 16 B/P (MAP) 100/48 (65) 96/38 Pulse Ox 100 100 O2 Delivery Room Air Room Air Room Air 01/21/17 01/21/17 01/21/17 01/21/17 13:00 14:00 15:00 15:25 Pulse 80 59 62 60 Resp 15 16 15 B/P (MAP) 105/44 (64) 105/59 (74) 113/52 (72) 117/50 Pulse Ox 98 95 96 O2 Delivery Room Air Room Air Room Air 01/21/17 01/21/17 01/21/17 01/21/17 16:00 16:00 16:55 17:00 Temp 98.0 98.0 Pulse 60 60 Resp 12 26 15 B/P (MAP) 108/54 (72) 98/54 (69) Pulse Ox 94 95 95 O2 Delivery Room Air Room Air Room Air Room Air 01/21/17 01/21/17 01/21/17 01/21/17 17:25 18:00 19:00 19:00 Pulse 60 60 60 Resp 15 18 15 26 B/P (MAP) 120/57 (78) 111/53 (72) 125/52 (76) Pulse Ox 95 94 92 94 O2 Delivery Room Air Room Air Room Air Room Air 01/21/17 01/21/17 01/21/17 01/21/17 20:00 20:00 20:53 21:00 Temp 97.8 97.8 Pulse 60 60 60 Resp 30 26 B/P (MAP) 131/56 (81) 100/40 106/59 (75) Pulse Ox 92 95 O2 Delivery Room Air Room Air Room Air 01/21/17 01/21/17 01/21/17 01/22/17 22:00 23:00 23:59 00:00 Temp 98.2 98.2 Pulse 60 60 63 Resp 26 26 B/P (MAP) 107/43 (64) 93/46 (62) 104/44 (64) Pulse Ox 91 94 91 O2 Delivery Room Air Room Air Room Air Room Air 01/22/17 01/22/17 01/22/17 01/22/17 01:00 02:00 03:00 04:00 Pulse 60 60 60 Resp 26 26 B/P (MAP) 112/51 (71) 121/54 (76) 119/42 (67) Pulse Ox 91 93 95 O2 Delivery Room Air Room Air Room Air Room Air 01/22/17 01/22/17 01/22/17 01/22/17 04:00 05:00 06:00 07:00 Temp 98.2 98.2 Pulse 60 60 62 88 Resp 26 26 17 16 B/P (MAP) 95/51 (66) 99/29 (52) 125/45 (71) 102/57 (72) Pulse Ox 96 90 94 95 O2 Delivery Room Air Room Air Room Air Room Air 01/22/17 01/22/17 01/22/17 01/22/17 08:00 08:00 09:00 09:15 Temp 98.5 98.5 Pulse 86 62 Resp 16 21 20 B/P (MAP) 100/28 (52) 94/28 (50) 100/28 (52) Pulse Ox 94 95 98 O2 Delivery Room Air Room Air Room Air Room Air 01/22/17 10:00 Pulse 82 Resp 18 B/P (MAP) 118/47 (70) Pulse Ox 94 O2 Delivery Room Air RADHA WOODRUFF MD Jan 22, 2017 11:54
[2017-01-22] MEDS ORDERED: ALBUMIN HUMAN 25% 100 ML IV ONE (12:15)
[2017-01-22] MEDS: GABAPENTIN 100 MG CAPSULE. PO SCH ×2 (14:59→21:35)
[2017-01-22] MEDS: PANTOPRAZOLE 40 MG TABLET.DR. PO SCH (15:00)
[2017-01-22] MEDS: OMEGA-3 FATTY ACIDS/FISH OIL 1,000 MG CAPSULE. PO SCH (15:00)
[2017-01-22] MEDS: ALLOPURINOL 100 MG TABLET. PO SCH (15:00)
[2017-01-22] MEDS: PROPAFENONE 150 MG TABLET. PO SCH ×2 (15:00→21:35)
[2017-01-22] MEDS: ASPIRIN ENTERIC COATED 81 MG TABLET.DR. PO SCH (15:01)
[2017-01-22] MEDS: MELOXICAM 7.5 MG TABLET PO SCH (15:01)
[2017-01-22] MEDS ORDERED: GENTAMICIN SULFATE 270 MG in IV NORMAL SALINE 100ML 100 ML IV ONE (18:00)
[2017-01-22] MEDS: FOLIC/VIT B COMP W-C (RENAL) TABLET. PO SCH (21:35)
[2017-01-22] MEDS ORDERED: AMINO ACIDS IV SCH ×9 (22:00)
[2017-01-22] MEDS ORDERED: [UNRECOGNIZED DRUG - OTHER] IV SCH ×9 (22:00)
[2017-01-22] MEDS ORDERED: TOTAL PARENTERAL NUTRITION IV SCH ×9 (22:00)
[2017-01-22] MEDS ORDERED: DEXTROSE 70% IV SCH ×9 (22:00)
[2017-01-22] MEDS ORDERED: DIGOXIN IV 500 MCG/2 ML AMPUL. IV ONE (22:30)
[2017-01-23] VITALS (23 sets, daily range): BP systolic 91–132; BP diastolic 34–78
[2017-01-23] MEDS: AMPICILLIN SODIUM 2 GM in IV NORMAL SALINE 100ML 100 ML IV SCH ×3 (05:30→21:27)
[2017-01-23 06:06] LABS: CREATININE 3.2 mg/dL (0.6-1.0); GFR 14.2; MAGNESIUM 2.2 mg/dL (1.8-2.4); PHOSPHORUS 3.3 mg/dL (2.6-4.7); POTASSIUM 4.8 mmol/L (3.5-5.1)
--- NOTE | 2017-01-23 07:45 | PDOC ---
Infectious Disease Note Subjective Subjective Feeling better, very very weak ROS ROS GEN: Denies fevers, chills, sweats HEENT: Denies blurred vision, sore throat CV: Denies chest pain RESP: Denies shortness of air, cough GI: Denies n/v/d NEURO: Denies confusion, dizziness MSK: Denies weakness, joint pain/swelling Vital Sign Vital Signs Vital Signs Date Time Temp Pulse Resp B/P (MAP) Pulse Ox O2 Delivery O2 Flow Rate FiO2 01/23/17 07:04 93 22 110/48 (68) 94 Room Air 01/23/17 04:00 97.5 97.5 Physical Exam PHYSICAL EXAM GENERAL: NAD, Alert HEENT: PERRL, OC/OP NECK: Supple, no JVD, no LN LUNGS: Clear HEART: S1S2, no gallop, no murmur ABD: Soft, NT, no organomegaly, no rebound EXT: No edema, no cyanosis PREFORM [employer]ATE [employer]KER: Alert, 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, no focal neurologic deficit SKIN: No rash IV: ok Labs Lab Laboratory Tests Test 01/22/17 08:00 01/23/17 05:32 White Blood Count 18.9 x10^3/uL (4.0-11.0) Red Blood Count 2.76 x10^6/uL (3.50-5.40) Hemoglobin 9.8 g/dL (12.0-15.5) Hematocrit 31.1 % (36.0-47.0) Mean Corpuscular Volume 113 fL (79-100) Mean Corpuscular Hemoglobin 35 pg (25-35) Mean Corpuscular Hemoglobin Concent 31 g/dL (31-37) Red Cell Distribution Width 22.8 % (11.5-14.5) Platelet Count 70 x10^3/uL (140-400) Sodium Level 131 mmol/L (136-145) 136 mmol/L (136-145) Potassium Level 4.9 mmol/L (3.5-5.1) 4.8 mmol/L (3.5-5.1) Chloride Level 94 mmol/L (98-107) 98 mmol/L (98-107) Carbon Dioxide Level 27 mmol/L (21-32) 28 mmol/L (21-32) Anion Gap 10 (6-14) 10 (6-14) Blood Urea Nitrogen 30 mg/dL (7-20) 25 mg/dL (7-20) Creatinine 3.9 mg/dL (0.6-1.0) 3.2 mg/dL (0.6-1.0) Estimated GFR (Cockcroft-Gault) 11.3 14.2 Glucose Level 168 mg/dL (70-99) 163 mg/dL (70-99) Calcium Level 8.6 mg/dL (8.5-10.1) 9.0 mg/dL (8.5-10.1) Magnesium Level 2.3 mg/dL (1.8-2.4) 2.2 mg/dL (1.8-2.4) Random Gentamicin Level 1.6 mcg/mL Phosphorus Level 3.3 mg/dL (2.6-4.7) Micro BC enterococcus Objective Assessment Enterococcus sepsis, 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 -TTE AV + mass on noncoronary cusp AV. MARY JANE 2 x 1 x 2 cm on AV & small mobile veg MV -Repeat BC NGTD, 01/16 Hypotension, on Levophed gtt Abnormal splenic lesion CT- c/w hemangioma; appreciate surgery's input Leukocytosis, trending down Encephalopathy, better Generalized aches - no history of PMR or fibromyalgia per . no joint inflammation Afib RVR + MRSA screen Recent UTI H/o C-diff Thrombocytopenia CKD/HD Plan Plan of Care Ampicillin (started 01/17) and gent for synergy Monitor WBC, Temp D/w in very detail,, ideally she need surgery with 2.1 cm vegetation, but pt is not a surgical candidate, pros cons, complications , treatment etc discussed, all questions answered pt/ot YENIFER ACOSTA MD Jan 23, 2017 07:45
[2017-01-23] MEDS ORDERED: IV NORMAL SALINE 1000ML BAG 1,000 ML IV PRN ×2 (07:54)
[2017-01-23] MEDS ORDERED: DIALYSIS PATIENT. MC PRN ×2 (08:00)
[2017-01-23] MEDS: CALCIUM ACETATE 667 MG CAPSULE PO SCH ×3 (08:00→17:13)
[2017-01-23] MEDS ORDERED: ALBUMIN HUMAN 25% 200 ML IV PRN (08:00)
[2017-01-23 09:03] LABS: INR 1.3 (0.8-1.1)
--- NOTE | 2017-01-23 10:06 | PDOC ---
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 Will reval on HD Vitals Vital Signs Vital Signs Date Time Temp Pulse Resp B/P (MAP) Pulse Ox O2 Delivery O2 Flow Rate FiO2 01/23/17 09:00 96 20 97/39 (58) 96 Room Air 01/23/17 08:00 97.8 97.8 01/21/17 07:00 2.0 Labs Last Labs Laboratory Tests Test 01/22/17 00:20 01/22/17 08:00 01/23/17 05:32 01/23/17 08:45 Glucose (Fingerstick) 155 mg/dL (70-99) White Blood Count 18.9 x10^3/uL (4.0-11.0) Red Blood Count 2.76 x10^6/uL (3.50-5.40) Hemoglobin 9.8 g/dL (12.0-15.5) Hematocrit 31.1 % (36.0-47.0) Mean Corpuscular Volume 113 fL (79-100) Mean Corpuscular Hemoglobin 35 pg (25-35) Mean Corpuscular Hemoglobin Concent 31 g/dL (31-37) Red Cell Distribution Width 22.8 % (11.5-14.5) Platelet Count 70 x10^3/uL (140-400) Sodium Level 131 mmol/L (136-145) 136 mmol/L (136-145) Potassium Level 4.9 mmol/L (3.5-5.1) 4.8 mmol/L (3.5-5.1) Chloride Level 94 mmol/L (98-107) 98 mmol/L (98-107) Carbon Dioxide Level 27 mmol/L (21-32) 28 mmol/L (21-32) Anion Gap 10 (6-14) 10 (6-14) Blood Urea Nitrogen 30 mg/dL (7-20) 25 mg/dL (7-20) Creatinine 3.9 mg/dL (0.6-1.0) 3.2 mg/dL (0.6-1.0) Estimated GFR (Cockcroft-Gault) 11.3 14.2 Glucose Level 168 mg/dL (70-99) 163 mg/dL (70-99) Calcium Level 8.6 mg/dL (8.5-10.1) 9.0 mg/dL (8.5-10.1) Magnesium Level 2.3 mg/dL (1.8-2.4) 2.2 mg/dL (1.8-2.4) Random Gentamicin Level 1.6 mcg/mL Phosphorus Level 3.3 mg/dL (2.6-4.7) Prothrombin Time 15.0 SEC (11.7-14.0) Prothromb Time International Ratio 1.3 (0.8-1.1) Laboratory Tests Test 01/23/17 05:32 01/23/17 08:45 Sodium Level 136 mmol/L (136-145) Potassium Level 4.8 mmol/L (3.5-5.1) Chloride Level 98 mmol/L (98-107) Carbon Dioxide Level 28 mmol/L (21-32) Anion Gap 10 (6-14) Blood Urea Nitrogen 25 mg/dL (7-20) Creatinine 3.2 mg/dL (0.6-1.0) Estimated GFR (Cockcroft-Gault) 14.2 Glucose Level 163 mg/dL (70-99) Calcium Level 9.0 mg/dL (8.5-10.1) Phosphorus Level 3.3 mg/dL (2.6-4.7) Magnesium Level 2.2 mg/dL (1.8-2.4) Prothrombin Time 15.0 SEC (11.7-14.0) Prothromb Time International Ratio 1.3 (0.8-1.1) Assessment Assessment Problems Medical Problems: (1) Non-STEMI (non-ST elevated myocardial infarction) Status: Acute Problems: Plan Plan of Care Problems Medical Problems: (1) Non-STEMI (non-ST elevated myocardial infarction) Status: Acute FLORESITA ACOSTA MD Jan 23, 2017 10:06
--- NOTE | 2017-01-23 12:06 | PDOC ---
PROGRESS NOTES Subjective Subjective Patient improving, still c/o severe weakness and fatigue. Appetite still poor. Objective Objective Vital Signs Date Time Temp Pulse Resp B/P (MAP) Pulse Ox O2 Delivery O2 Flow Rate FiO2 01/23/17 11:00 110 20 104/78 (87) 96 Room Air 01/23/17 08:00 97.8 97.8 01/21/17 07:00 2.0 Physical Exam Physical Exam No significant changes to exam. Assessment Assessment Problems Medical Problems: (1) Non-STEMI (non-ST elevated myocardial infarction) Status: Acute Plan Plan of Care Hypotension: - BP has been labile requiring vasopressors - Continue IV Albumin to improve hemodynamics. - Will continue to monitor in ICU. Atrial fibrillation: - Increase Rythmol to 150mg BID - Warfarin started on 01/20; INR 1.3 today, will continue to monitor. 5 mg Warfarin today. Patient is not medically stable for cardiac surgery. Recommend continued IV ABX treatment for at least 4 weeks. Patients has continued weakness, will continue TPN for now and monitor patient' s appetite. Comment Review of Relevant I have reviewed the following items michelle (where applicable) has been applied. Labs Laboratory Tests Test 01/22/17 00:20 01/22/17 08:00 01/23/17 05:32 01/23/17 08:45 Glucose (Fingerstick) 155 mg/dL (70-99) White Blood Count 18.9 x10^3/uL (4.0-11.0) Red Blood Count 2.76 x10^6/uL (3.50-5.40) Hemoglobin 9.8 g/dL (12.0-15.5) Hematocrit 31.1 % (36.0-47.0) Mean Corpuscular Volume 113 fL (79-100) Mean Corpuscular Hemoglobin 35 pg (25-35) Mean Corpuscular Hemoglobin Concent 31 g/dL (31-37) Red Cell Distribution Width 22.8 % (11.5-14.5) Platelet Count 70 x10^3/uL (140-400) Sodium Level 131 mmol/L (136-145) 136 mmol/L (136-145) Potassium Level 4.9 mmol/L (3.5-5.1) 4.8 mmol/L (3.5-5.1) Chloride Level 94 mmol/L (98-107) 98 mmol/L (98-107) Carbon Dioxide Level 27 mmol/L (21-32) 28 mmol/L (21-32) Anion Gap 10 (6-14) 10 (6-14) Blood Urea Nitrogen 30 mg/dL (7-20) 25 mg/dL (7-20) Creatinine 3.9 mg/dL (0.6-1.0) 3.2 mg/dL (0.6-1.0) Estimated GFR (Cockcroft-Gault) 11.3 14.2 Glucose Level 168 mg/dL (70-99) 163 mg/dL (70-99) Calcium Level 8.6 mg/dL (8.5-10.1) 9.0 mg/dL (8.5-10.1) Magnesium Level 2.3 mg/dL (1.8-2.4) 2.2 mg/dL (1.8-2.4) Random Gentamicin Level 1.6 mcg/mL Phosphorus Level 3.3 mg/dL (2.6-4.7) Prothrombin Time 15.0 SEC (11.7-14.0) Prothromb Time International Ratio 1.3 (0.8-1.1) Laboratory Tests Test 01/23/17 05:32 01/23/17 08:45 Sodium Level 136 mmol/L (136-145) Potassium Level 4.8 mmol/L (3.5-5.1) Chloride Level 98 mmol/L (98-107) Carbon Dioxide Level 28 mmol/L (21-32) Anion Gap 10 (6-14) Blood Urea Nitrogen 25 mg/dL (7-20) Creatinine 3.2 mg/dL (0.6-1.0) Estimated GFR (Cockcroft-Gault) 14.2 Glucose Level 163 mg/dL (70-99) Calcium Level 9.0 mg/dL (8.5-10.1) Phosphorus Level 3.3 mg/dL (2.6-4.7) Magnesium Level 2.2 mg/dL (1.8-2.4) Prothrombin Time 15.0 SEC (11.7-14.0) Prothromb Time International Ratio 1.3 (0.8-1.1) Microbiology 01/16/17 Blood Culture - Final, Complete NO GROWTH AFTER 5 DAYS Medications Current Medications Sodium Chloride 500 ml @ 500 mls/hr 1X ONCE IV Last administered on 06:45; Start 01/09/17 at 06:45; Stop 01/09/17 at 07:44; Status DC Diltiazem HCl (Cardizem) 10 mg 1X ONCE IVP Last administered on 01/09/17 07: 39; Start 01/09/17 at 07:30; Stop 01/09/17 at 07:31; Status DC Diltiazem HCl 125 mg/Dextrose 125 ml @ 0 mls/hr CONT PRN IV SEE I/O RECORD Last administered on 01/09/17 07:40; Start 01/09/17 at 07:30 Aspirin (Children'S Aspirin) 324 mg 1X ONCE PO Last administered on 01/09/17 08:15; Start 01/09/17 at 07:45; Stop 01/09/17 at 07:46; Status DC Darbepoetin Jerome (Aranesp) 60 mcg WEEKLYHS SQ Last administered on 01/16/17 21 :10; Start 01/09/17 at 21:00 Albumin Human 500 ml @ 125 mls/hr 1X ONCE IV Last administered on 01/09/17 13:02; Start 01/09/17 at 13:00; Stop 01/09/17 at 16:59; Status DC Albumin Human 500 ml @ 125 mls/hr 1X ONCE IV Last administered on 01/09/17 16:35; Start 01/09/17 at 16:00; Stop 01/09/17 at 19:59; Status DC Digoxin (Lanoxin) 500 mcg 1X ONCE IV Last administered on 01/09/17 13:03; Start 01/09/17 at 13:00; Stop 01/09/17 at 13:01; Status DC Sodium Chloride 1,000 ml @ 1,000 mls/hr Q1H PRN IV hypotension; Start 01/09/17 at 16:31; Stop 01/09/17 at 22:30; Status DC Sodium Chloride 1,000 ml @ 400 mls/hr Q2H30M PRN IV PATENCY; Start 01/09/17 at 16:31; Stop 01/10/17 at 04:30; Status DC Info (PHARMACY MONITORING -- do not chart) 1 each PRN DAILY PRN MC SEE COMMENTS ; Start 01/09/17 at 16:45; Status Cancel Fentanyl Citrate (Fentanyl 2ml Vial) 50 mcg PRN Q4HRS PRN IV PAIN Last administered on 01/21/17 16:55; Start 01/09/17 at 18:00 Oxycodone/ Acetaminophen (Percocet 5/325) 1 tab PRN Q4HRS PRN PO PAIN Last administered on 01/20/17 20:34; Start 01/09/17 at 18:00 Fentanyl Citrate (Fentanyl 2ml Vial) 50 mcg 1X ONCE IM ; Start 01/09/17 at 20: 00; Stop 01/09/17 at 20:01; Status Cancel Fentanyl Citrate (Fentanyl 2ml Vial) 50 mcg 1X ONCE IV Last administered on 19:57; Start 01/09/17 at 20:00; Stop 01/09/17 at 20:01; Status DC Allopurinol (Zyloprim) 100 mg DAILY PO Last administered on 01/22/17 15:00; Start 01/10/17 at 14:30 Aspirin (Ecotrin) 81 mg DAILY PO Last administered on 01/22/17 15:01; Start at 14:30 Atenolol (Tenormin) 50 mg DAILY PO Last administered on 01/12/17 09:09; Start 01/10/17 at 14:30; Stop 01/12/17 at 14:50; Status DC Calcium Acetate (Phoslo) 2,001 mg TIDWMEALS PO Last administered on 01/22/17 17 :40; Start 01/10/17 at 17:00 Vitamin B Complex/ Vitamin C (Tsering-Ray) 1 tab HS PO Last administered on 21:35; Start 01/10/17 at 21:00 Gabapentin (Neurontin) 100 mg BID PO Last administered on 01/22/17 21:35; Start 01/10/17 at 14:30 Meloxicam (Mobic) 7.5 mg DAILY PO Last administered on 01/22/17 15:01; Start at 14:30 Fish Oil (Fish Oil) 1,000 mg DAILY PO Last administered on 01/22/17 15:00; Start 01/11/17 at 09:00 Pantoprazole Sodium (Protonix) 40 mg DAILYAC PO Last administered on 01/22/17 15:00; Start 01/10/17 at 14:30 Digoxin (Lanoxin) 500 mcg 1X ONCE IV Last administered on 01/10/17 15:23; Start 01/10/17 at 15:30; Stop 01/10/17 at 15:31; Status DC Albumin Human 500 ml @ 125 mls/hr 1X ONCE IV Last administered on 01/10/17 15:22; Start 01/10/17 at 15:15; Stop 01/10/17 at 19:14; Status DC Lidocaine HCl (Xylocaine-Mpf 1% Vial) 2 ml STK-MED ONCE .ROUTE ; Start 01/11/17 at 08:47; Stop 01/11/17 at 08:48; Status DC Sodium Chloride 1,000 ml @ 1,000 mls/hr Q1H PRN IV hypotension; Start 01/11/17 at 08:55; Stop 01/11/17 at 14:54; Status DC Albumin Human 200 ml @ 200 mls/hr 1X PRN PRN IV Hypotension; Start 01/11/17 at 09:00; Stop 01/11/17 at 14:59; Status DC Acetaminophen (Tylenol) 500 mg 1X PRN PRN PO MILD PAIN / TEMP; Start 01/11/17 at 09:00; Stop 01/12/17 at 08:59; Status DC Diphenhydramine HCl (Benadryl) 25 mg 1X PRN PRN IV ITCHING Last administered on 01/11/17 13:30; Start 01/11/17 at 09:00; Stop 01/12/17 at 08:59; Status DC Info (PHARMACY MONITORING -- do not chart) 1 each PRN DAILY PRN MC SEE COMMENTS ; Start 01/11/17 at 09:00; Stop 01/18/17 at 08:14; Status DC Lidocaine HCl (Xylocaine-Mpf 1% Vial) 2 ml 1X ONCE INJ Last administered on 10:01; Start 01/11/17 at 09:00; Stop 01/11/17 at 09:02; Status DC Albumin Human 500 ml @ 125 mls/hr 1X ONCE IV Last administered on 01/11/17 11:50; Start 01/11/17 at 11:45; Stop 01/11/17 at 15:44; Status DC Nitroglycerin (Nitrostat) 0.4 mg STK-MED ONCE SL ; Start 01/11/17 at 12:07; Stop 01/11/17 at 12:08; Status DC Nitroglycerin (Nitrostat) 0.4 mg PRN Q5MIN PRN SL CHEST PAIN Last administered on 01/11/17 12:35; Start 01/11/17 at 12:15 Morphine Sulfate 3 mg 1X ONCE IV Last administered on 01/11/17 12:15; Start 01/11/17 at 12:15; Stop 01/11/17 at 12:16; Status DC Digoxin (Lanoxin) 250 mcg 1X ONCE IV Last administered on 01/11/17 12:34; Start 01/11/17 at 12:30; Stop 01/11/17 at 12:31; Status DC Fentanyl Citrate (Fentanyl 5ml Vial) 250 mcg STK-MED ONCE .ROUTE ; Start at 13:07; Stop 01/11/17 at 13:08; Status DC Midazolam HCl (Versed) 5 mg STK-MED ONCE .ROUTE ; Start 01/11/17 at 13:07; Stop 01/11/17 at 13:08; Status DC Iohexol (Omnipaque 350 Mg/ml) 100 ml STK-MED ONCE .ROUTE ; Start 01/11/17 at 13: 08; Stop 01/11/17 at 13:09; Status DC Heparin Sodium/ Sodium Chloride 500 ml @ As Directed STK-MED ONCE .ROUTE ; Start 01/11/17 at 13:09; Stop 01/11/17 at 13:10; Status DC Lidocaine HCl 20 ml STK-MED ONCE .ROUTE ; Start 01/11/17 at 13:09; Stop at 13:10; Status DC Heparin Sodium/ Sodium Chloride 1,000 unit 1X ONCE IART Last administered on 13:50; Start 01/11/17 at 13:45; Stop 01/11/17 at 13:46; Status DC Midazolam HCl (Versed) 1 mg 1X ONCE IV Last administered on 01/11/17 13:51; Start 01/11/17 at 13:45; Stop 01/11/17 at 13:46; Status DC Fentanyl Citrate (Fentanyl 5ml Vial) 50 mcg 1X ONCE IV Last administered on 13:51; Start 01/11/17 at 13:45; Stop 01/11/17 at 13:46; Status DC Iohexol (Omnipaque 350 Mg/ml) 81 ml 1X ONCE IART Last administered on 13:51; Start 01/11/17 at 13:45; Stop 01/11/17 at 13:46; Status DC Lidocaine HCl 12 ml 1X ONCE IJ Last administered on 01/11/17 13:50; Start at 13:45; Stop 01/11/17 at 13:46; Status DC Info (Do NOT chart on this entry -- for MONITORING) 1 each PRN DAILY PRN MC SEE COMMENTS; Start 01/11/17 at 14:00; Stop 01/13/17 at 13:59; Status DC Albumin Human 250 ml @ 62.5 mls/hr 1X ONCE IV Last administered on 01/11/17 14:15; Start 01/11/17 at 14:15; Stop 01/11/17 at 18:14; Status DC Digoxin (Lanoxin) 250 mcg 1X ONCE IV Last administered on 01/11/17 19:02; Start 01/11/17 at 18:45; Stop 01/11/17 at 18:46; Status DC Ondansetron HCl (Zofran) 8 mg PRN Q6HRS PRN IV NAUSEA/VOMITING Last administered on 01/15/17 04:04; Start 01/11/17 at 18:45 Enoxaparin Sodium (Lovenox 100mg Syringe) 90 mg Q24H SQ Last administered on 21:09; Start 01/11/17 at 20:00; Stop 01/15/17 at 11:08; Status DC Propafenone HCl (Rythmol) 75 mg BID PO Last administered on 01/22/17 21:35; Start 01/12/17 at 21:00 Norepinephrine Bitartrate 250 ml @ 0 mls/hr CONT PRN IV SEE I/O RECORD Last administered on 01/17/17 23:13; Start 01/12/17 at 15:45 Info (Anti-Coagulation Monitoring By Pharmacy) 1 each PRN DAILY PRN MC SEE COMMENTS Last administered on 01/22/17 10:46; Start 01/13/17 at 09:00 Magnesium Sulfate/ Dextrose 50 ml @ 25 mls/hr PRN DAILY PRN IV for Mag < 1.7 on am labs; Start 01/13/17 at 10:45 Sodium Chloride 1,000 ml @ 80 mls/hr [id number] IV Last administered on 10:50; Start 01/13/17 at 10:45; Stop 01/14/17 at 19:07; Status DC Sodium Chloride 500 ml @ 0 mls/hr QID PRN IV for MAP < 65 Last administered on 01/14/17 01:15; Start 01/13/17 at 10:45 Sodium Chloride 1,000 ml @ 1,000 mls/hr Q1H PRN IV hypotension; Start 01/14/17 at 09:11; Stop 01/14/17 at 15:10; Status DC Info (PHARMACY MONITORING -- do not chart) 1 each PRN DAILY PRN MC SEE COMMENTS ; Start 01/14/17 at 09:15; Status UNV Piperacillin Sod/ Tazobactam Sod 2.25 gm/Sodium Chloride 50 ml @ 100 mls/hr Q8HRS IV Last administered on 01/17/17 05:01; Start 01/14/17 at 12:30; Stop 01/17/17 at 14:30; Status DC Micafungin Sodium 100 mg/Dextrose 100 ml @ 100 mls/hr Q24H IV Last administered on 01/16/17 13:42; Start 01/14/17 at 13:00; Stop 01/17/17 at 14:30 ; Status DC Vancomycin HCl (Vanco Per Pharmacy) 1 each PRN DAILY PRN MC SEE COMMENTS Last administered on 01/17/17 11:01; Start 01/15/17 at 07:15; Stop 01/17/17 at 14:30; Status DC Vancomycin HCl 2 gm/Sodium Chloride 500 ml @ 250 mls/hr 1X ONCE IV Last administered on 01/15/17 07:55; Start 01/15/17 at 08:00; Stop 01/15/17 at 09:59 ; Status DC Metronidazole 100 ml @ 100 mls/hr Q8H IV Last administered on 01/16/17 00:03 ; Start 01/15/17 at 08:00; Stop 01/16/17 at 08:02; Status DC Iohexol (Omnipaque 300 Mg/ml) 75 ml 1X ONCE IV ; Start 01/15/17 at 08:00; Stop 01/15/17 at 08:01; Status DC Lidocaine/Sodium Bicarbonate (Buffered Lidocaine 1%) 3 ml 1X ONCE IJ Last administered on 01/15/17 09:00; Start 01/15/17 at 08:30; Stop 01/15/17 at 08:32 ; Status DC Heparin Sodium/ Sodium Chloride 60 unit 1X ONCE IV Last administered on 09:01; Start 01/15/17 at 08:30; Stop 01/15/17 at 08:32; Status DC Heparin Sodium (Porcine) (Heparin Sodium) 3,000 unit 1X ONCE IV Last administered on 01/15/17 20:21; Start 01/15/17 at 21:00; Stop 01/15/17 at 21:01 ; Status DC Heparin Sodium/ Dextrose 500 ml @ 0 mls/hr CONT PRN IV SEE I/O RECORD Last administered on 01/22/17 03:24; Start 01/15/17 at 21:00 Iohexol (Omnipaque 300 Mg/ml) 75 ml 1X ONCE IV Last administered on 01/15/17 12:15; Start 01/15/17 at 12:15; Stop 01/15/17 at 12:16; Status DC Info (Do NOT chart on this entry -- for MONITORING) 1 each PRN DAILY PRN MC SEE COMMENTS; Start 01/15/17 at 12:15; Stop 01/17/17 at 12:14; Status DC Vancomycin HCl 1 each 1X ONCE MC Last administered on 01/17/17 05:00; Start at 05:00; Stop 01/17/17 at 05:01; Status DC Info (PHARMACY MONITORING -- do not chart) 1 each PRN DAILY PRN MC SEE COMMENTS ; Start 01/16/17 at 07:45; Status UNV Info (PHARMACY MONITORING -- do not chart) 1 each PRN DAILY PRN MC SEE COMMENTS ; Start 01/16/17 at 07:45; Status UNV Info (PHARMACY MONITORING -- do not chart) 1 each PRN DAILY PRN MC SEE COMMENTS ; Start 01/16/17 at 07:45; Status UNV Sodium Chloride 1,000 ml @ 1,000 mls/hr Q1H PRN IV hypotension; Start 01/16/17 at 07:32; Stop 01/16/17 at 13:31; Status DC Albumin Human 200 ml @ 200 mls/hr 1X PRN PRN IV Hypotension; Start 01/16/17 at 07:45; Stop 01/16/17 at 13:44; Status DC Info (PHARMACY MONITORING -- do not chart) 1 each PRN DAILY PRN MC SEE COMMENTS ; Start 01/16/17 at 07:45; Status UNV Gentamicin Sulfate 1 each ONCE ONCE MC ; Start 01/16/17 at 08:00; Stop at 08:04; Status DC Gentamicin Sulfate 180 mg/ Sodium Chloride 104.5 ml @ 104.5 mls/ hr 1X ONCE IV Last administered on 01/16/17t 11:50; Start 01/16/17 at 09:00; Stop at 09:59; Status DC Lidocaine HCl (Xylocaine 2% Topical 5gm Tube) 1 edwardo 1X ONCE TP ; Start at 14:45; Stop 01/16/17 at 14:53; Status DC Lidocaine HCl (Viscous Lidocaine) 15 ml 1X ONCE MM ; Start 01/16/17 at 14:45; Stop 01/16/17 at 14:53; Status DC Benzocaine (Hurricaine One) 1spray 1X ONCE MM Last administered on 01/16/17t 14:45; Start 01/16/17 at 14:45; Stop 01/16/17 at 14:53; Status DC Ondansetron HCl (Zofran) 4 mg PRN Q6HRS PRN IV NAUSEA/VOMITING; Start 01/17/17 at 07:00; Stop 01/18/17 at 06:59; Status DC Fentanyl Citrate (Fentanyl 2ml Vial) 25 mcg PRN Q5MIN PRN IV MILD PAIN; Start 01/17/17 at 07:00; Stop 01/18/17 at 06:59; Status DC Fentanyl Citrate (Fentanyl 2ml Vial) 50 mcg PRN Q5MIN PRN IV MODERATE PAIN; Start 01/17/17 at 07:00; Stop 01/18/17 at 06:59; Status DC Morphine Sulfate 1 mg PRN Q10MIN PRN IV SEVERE PAIN; Start 01/17/17 at 07:00; Stop 01/18/17 at 06:59; Status DC Ringer's Solution 1,000 ml @ 30 mls/hr Q24H IV ; Start 01/17/17 at 07:00; Stop 01/17/17 at 18:59; Status DC Lidocaine HCl 2 ml PRN 1X PRN ID PRIOR TO IV START; Start 01/17/17 at 07:00; Stop 01/18/17 at 06:59; Status DC Hydromorphone HCl (Dilaudid) 0.5 mg PRN Q10MIN PRN IV SEV PAIN, Second choice; Start 01/17/17 at 07:00; Stop 01/18/17 at 06:59; Status DC Prochlorperazine Edisylate (Compazine) 5 mg PACU PRN PRN IV NAUSEA, MRX1; Start 01/17/17 at 07:00; Stop 01/18/17 at 06:59; Status DC Propofol 20 ml @ As Directed STK-MED ONCE IV ; Start 01/17/17 at 10:24; Stop 01/17 at 10:25; Status DC Phenylephrine HCl 1 mg STK-MED ONCE IV ; Start 01/17/17 at 10:24; Stop 01/17/17 at 10:25; Status DC Vancomycin HCl 500 mg/Sodium Chloride 100 ml @ 100 mls/hr QTUTHSA IV ; Start at 16:00; Stop 01/18/17 at 16:00; Status DC Ampicillin Sodium 2 gm/Sodium Chloride 100 ml @ 200 mls/hr Q8HRS IV Last administered on 01/23/17 05:30; Start 01/17/17 at 15:00 Gentamicin Sulfate 270 mg/ Sodium Chloride 106.75 ml @ 106.75 mls/hr Q24H IV ; Start 01/17/17 at 14:15; Status UNV Info 1 each PRN DAILY PRN MC SEE COMMENTS Last administered on 01/22/17 09:58; Start 01/17/17 at 21:30 Amino Acids/ Glycerin/ Electrolytes 1,000 ml @ 50 mls/hr Q20H IV Last administered on 01/17/17 21:46; Start 01/17/17 at 21:30; Stop 01/18/17 at 21:59; Status DC Sodium Chloride 1,000 ml @ 1,000 mls/hr Q1H PRN IV hypotension; Start 01/18/17 at 08:05; Stop 01/18/17 at 14:04; Status DC Sodium Chloride 1,000 ml @ 400 mls/hr Q2H30M PRN IV PATENCY; Start 01/18/17 at 08:05; Stop 01/18/17 at 20:04; Status DC Info (PHARMACY MONITORING -- do not chart) 1 each PRN DAILY PRN MC SEE COMMENTS ; Start 01/18/17 at 08:15; Status Cancel Info (PHARMACY MONITORING -- do not chart) 1 each PRN DAILY PRN MC SEE COMMENTS ; Start 01/18/17 at 08:15; Stop 01/18/17 at 08:15; Status DC Sodium Chloride 90 meq/Potassium Chloride 50 meq/ Potassium Phosphate 13.6 mmol/ Magnesium Sulfate 10 meq/ Calcium Gluconate 10 meq/ Multivitamins 10 ml/Chromium / Copper/Manganese/ Seleni/Zn 1 ml/ Total Parenteral Nutrition/Amino Acids/ Dextrose/ Fat Emulsion Intravenous 1,512 ml @ 63 mls/hr TPN CONT IV Last administered on 01/18/17 20:59; Start 01/18/17 at 22:00; Stop 01/19/17 at 21:59; Status DC Gentamicin Sulfate 270 mg/ Sodium Chloride 106.75 ml @ 106.75 mls/hr 1X ONCE IV Last administered on 01/18/17 16:51; Start 01/18/17 at 16:00; Stop 01/18/17 at 16:59; Status DC Sodium Chloride 90 meq/Potassium Chloride 50 meq/ Potassium Phosphate 13.6 mmol/ Magnesium Sulfate 10 meq/ Calcium Gluconate 10 meq/ Multivitamins 10 ml/Chromium / Copper/Manganese/ Seleni/Zn 1 ml/ Total Parenteral Nutrition/Amino Acids/ Dextrose/ Fat Emulsion Intravenous 1,320 ml @ 55 mls/hr TPN CONT IV Last administered on 01/19/17 21:18; Start 01/19/17 at 22:00; Stop 01/20/17 at 21:59; Status DC Warfarin Sodium (Coumadin) 5 mg 1X ONCE PO Last administered on 01/20/17 16:16 ; Start 01/20/17 at 16:00; Stop 01/20/17 at 16:01; Status DC Warfarin Sodium (Coumadin Per Physician) 1 each PRN DAILY PRN MC SEE COMMENTS Last administered on 01/22/17 10:44; Start 01/20/17 at 13:15 Sodium Chloride 90 meq/Potassium Chloride 50 meq/ Magnesium Sulfate 10 meq/ Calcium Gluconate 10 meq/ Multivitamins 10 ml/Chromium/ Copper/Manganese/ Seleni /Zn 1 ml/ Total Parenteral Nutrition/Amino Acids/Dextrose/ Fat Emulsion Intravenous 1,200 ml @ 50 mls/hr TPN CONT IV Last administered on 01/20/17 20 :35; Start 01/20/17 at 22:00; Stop 01/21/17 at 21:59; Status DC Sodium Chloride 1,000 ml @ 1,000 mls/hr Q1H PRN IV hypotension; Start 01/21/17 at 08:06; Stop 01/21/17 at 14:09; Status DC Sodium Chloride 1,000 ml @ 400 mls/hr Q2H30M PRN IV PATENCY; Start 01/21/17 at 08:06; Stop 01/21/17 at 20:05; Status DC Info (PHARMACY MONITORING -- do not chart) 1 each PRN DAILY PRN MC SEE COMMENTS ; Start 01/21/17 at 08:15; Status UNV Info (PHARMACY MONITORING -- do not chart) 1 each PRN DAILY PRN MC SEE COMMENTS ; Start 01/21/17 at 08:15; Status UNV Digoxin (Lanoxin) 250 mcg 1X ONCE IV Last administered on 01/21/17 12:13; Start 01/21/17 at 12:00; Stop 01/21/17 at 12:01; Status DC Sodium Chloride 120 meq/Potassium Chloride 20 meq/ Magnesium Sulfate 10 meq/ Calcium Gluconate 10 meq/ Multivitamins 10 ml/Chromium/ Copper/Manganese/ Seleni /Zn 1 ml/ Total Parenteral Nutrition/Amino Acids/Dextrose/ Fat Emulsion Intravenous 1,200 ml @ 50 mls/hr TPN CONT IV Last administered on 01/21/17 22 :12; Start 01/21/17 at 22:00; Stop 01/22/17 at 21:59; Status DC Acetaminophen (Tylenol) 650 mg PRN Q6HRS PRN PO MILD PAIN / TEMP Last administered on 01/22/17 19:29; Start 01/21/17 at 20:45 Sodium Chloride 140 meq/Potassium Chloride 20 meq/ Magnesium Sulfate 10 meq/ Calcium Gluconate 10 meq/ Multivitamins 10 ml/Chromium/ Copper/Manganese/ Seleni /Zn 1 ml/ Total Parenteral Nutrition/Amino Acids/Dextrose/ Fat Emulsion Intravenous 1,200 ml @ 50 mls/hr TPN CONT IV Last administered on 01/22/17 21 :24; Start 01/22/17 at 22:00; Stop 01/23/17 at 21:59 Info (PHARMACY MONITORING -- do not chart) 1 each PRN DAILY PRN MC SEE COMMENTS ; Start 01/22/17 at 10:15; Stop 01/22/17 at 14:38; Status DC Albumin Human 100 ml @ 100 mls/hr 1X ONCE IV Last administered on 01/22/17 15 :19; Start 01/22/17 at 12:15; Stop 01/22/17 at 13:14; Status DC Gentamicin Sulfate 270 mg/ Sodium Chloride 106.75 ml @ 106.75 mls/hr 1X ONCE IV Last administered on 01/22/17 17:41; Start 01/22/17 at 18:00; Stop 01/22/17 at 18:59; Status DC Digoxin (Lanoxin) 250 mcg 1X ONCE IV Last administered on 01/22/17 22:32; Start 01/22/17 at 22:30; Stop 01/22/17 at 22:31; Status DC Sodium Chloride 1,000 ml @ 1,000 mls/hr Q1H PRN IV hypotension; Start 01/23/17 at 07:54; Stop 01/23/17 at 13:53 Albumin Human 200 ml @ 200 mls/hr 1X PRN PRN IV Hypotension Last administered on 01/23/17 09:23; Start 01/23/17 at 08:00; Stop 01/23/17 at 13:59 Sodium Chloride 1,000 ml @ 400 mls/hr Q2H30M PRN IV PATENCY; Start 01/23/17 at 07:54; Stop 01/23/17 at 19:53 Info (PHARMACY MONITORING -- do not chart) 1 each PRN DAILY PRN MC SEE COMMENTS ; Start 01/23/17 at 08:00; Stop 01/23/17 at 08:10; Status DC Info (PHARMACY MONITORING -- do not chart) 1 each PRN DAILY PRN MC SEE COMMENTS ; Start 01/23/17 at 08:00 Active Scripts Active Reported Ferric Citrate 210 Mg Tablet 210 Mg PO Meloxicam 7.5 Mg Tablet 1 Tab PO DAILY Atenolol 50 Mg Tablet 1 Tab PO DAILY Tylenol (Acetaminophen) 325 Mg Tablet 500 Mg PO PRN Q6HRS PRN Aspir 81 (Aspirin) 81 Mg Tablet. 1 Tab PO DAILY Fish Oil 1,000 Mg Capsule ([place]-3 Fatty Acids/Fish Oil) 1 Each Capsule 1 Each PO BID Vitamin D2 (Ergocalciferol (Vitamin D2)) 50,000 Unit Capsule 50,000 Unit PO WEEKLY Allopurinol 100 Mg Tablet 1 Tab PO DAILY Nephro-Ray Tablet (Folic Acid/Vitamin B Comp W-C) 0.8 Mg Tablet 1 Tab PO HS Gabapentin 100 Mg Capsule 100 Mg PO BID Omeprazole 20 Mg Capsule.dr 20 Mg PO DAILY Calcium Acetate 667 Mg Capsule 2,001 Mg PO TIDWMEALS Vitals/I & O Vital Sign - Last 24 Hours 01/22/17 01/22/17 01/22/17 01/22/17 13:00 14:00 15:00 15:00 Pulse 88 78 81 86 Resp 12 11 12 B/P (MAP) 106/63 (77) 74/49 (57) 118/60 106/44 (64) Pulse Ox 94 94 93 O2 Delivery Room Air Room Air Room Air 01/22/17 01/22/17 01/22/17 01/22/17 16:00 16:00 17:00 18:00 Temp 98.1 98.1 Pulse 94 89 93 Resp 15 16 B/P (MAP) 94/43 (60) 102/46 (64) 99/46 (63) Pulse Ox 94 95 95 O2 Delivery Room Air Room Air Room Air Room Air 01/22/17 01/22/17 01/22/17 01/22/17 19:00 20:00 20:00 21:00 Temp 98.0 98.0 Pulse 94 84 94 Resp 16 18 16 B/P (MAP) 124/62 (82) 117/48 (71) 104/40 (61) Pulse Ox 94 95 93 O2 Delivery Room Air Room Air Room Air Room Air 01/22/17 01/22/17 01/22/17 01/22/17 21:35 22:00 22:32 23:00 Pulse 95 98 101 94 Resp 15 20 B/P (MAP) 104/40 113/53 (73) 113/53 98/40 (59) Pulse Ox 94 92 O2 Delivery Room Air Room Air 01/23/17 01/23/17 01/23/17 01/23/17 00:00 00:00 01:00 02:00 Temp 97.5 97.5 Pulse 94 94 104 Resp 22 15 16 B/P (MAP) 122/49 (73) 119/49 (72) 118/46 (70) Pulse Ox 93 94 95 O2 Delivery Room Air Room Air Room Air Room Air 01/23/17 01/23/17 01/23/17 01/23/17 03:00 04:00 04:00 05:00 Temp 97.5 97.5 Pulse 84 96 92 Resp 22 17 16 B/P (MAP) 128/47 (74) 121/64 (83) 100/51 (67) Pulse Ox 97 97 95 O2 Delivery Room Air Room Air Room Air Room Air 01/23/17 01/23/17 01/23/17 01/23/17 06:00 07:04 08:00 08:00 Temp 97.8 97.8 Pulse 93 93 95 Resp 16 22 20 B/P (MAP) 131/52 (78) 110/48 (68) 101/42 (61) Pulse Ox 95 94 94 O2 Delivery Room Air Room Air Room Air Room Air 01/23/17 01/23/17 01/23/17 09:00 10:00 11:00 Pulse 96 98 110 Resp 20 20 20 B/P (MAP) 97/39 (58) 102/54 (70) 104/78 (87) Pulse Ox 96 97 96 O2 Delivery Room Air Room Air Room Air INEZ GRADY MD Jan 23, 2017 12:06
[2017-01-23] MEDS: TPN PER PHARMACY MC PRN (12:16)
[2017-01-23] MEDS: ANTI-COAG MONITOR BY PHARMACY. MC PRN ×2 (12:22→12:35)
[2017-01-23] MEDS: ASPIRIN ENTERIC COATED 81 MG TABLET.DR. PO SCH (13:08)
[2017-01-23] MEDS: PANTOPRAZOLE 40 MG TABLET.DR. PO SCH (13:08)
[2017-01-23] MEDS: ALLOPURINOL 100 MG TABLET. PO SCH (13:08)
[2017-01-23] MEDS: OMEGA-3 FATTY ACIDS/FISH OIL 1,000 MG CAPSULE. PO SCH (13:08)
[2017-01-23] MEDS: GABAPENTIN 100 MG CAPSULE. PO SCH ×2 (13:08→21:26)
[2017-01-23] MEDS: PROPAFENONE 150 MG TABLET. PO SCH ×2 (13:09→21:26)
[2017-01-23] MEDS: MELOXICAM 7.5 MG TABLET PO SCH (13:14)
[2017-01-23] MEDS ORDERED: PROPAFENONE 150 MG TABLET. PO ONE (13:45)
--- NOTE | 2017-01-23 14:19 | PDOC ---
PROGRESS NOTES Assessment Problems Medical Problems: (1) Non-STEMI (non-ST elevated myocardial infarction) Status: Acute Metabolic encephalopathy. Generalized weakness. New onset Afib. CHF Renal failure on dialysis. Sepsis. DM HTN Anemia. Gout Obesity Plan Treat medical and cardiac disease. Discussed with her Subjective More confused earlier this morning, better after dialysis Objective Vital Signs Date Time Temp Pulse Resp B/P (MAP) Pulse Ox O2 Delivery O2 Flow Rate FiO2 01/23/17 14:11 96 117/47 01/23/17 13:00 97.9 20 94 Room Air 97.9 Intake and Output 01/24/17 07:00 Intake Total 160 ml Balance 160 ml Intake Oral 60 ml IV Total 100 ml PHYSICAL EXAM Alert. Oriented to place and person. PERRL. EOMI. CN: no focal findings. Muscle tone: normal. Muscle strength: 2-/5 DTR: 1+ Plantar reflex: flexor Gait: not examined in bed. Sensory exam: no abnormal findings. No cerebellar signs elicited Review of Relevant I have reviewed the following items michelle (where applicable) has been applied. Labs Laboratory Tests Test 01/22/17 00:20 01/22/17 08:00 01/23/17 05:32 01/23/17 08:45 Glucose (Fingerstick) 155 mg/dL (70-99) White Blood Count 18.9 x10^3/uL (4.0-11.0) Red Blood Count 2.76 x10^6/uL (3.50-5.40) Hemoglobin 9.8 g/dL (12.0-15.5) Hematocrit 31.1 % (36.0-47.0) Mean Corpuscular Volume 113 fL (79-100) Mean Corpuscular Hemoglobin 35 pg (25-35) Mean Corpuscular Hemoglobin Concent 31 g/dL (31-37) Red Cell Distribution Width 22.8 % (11.5-14.5) Platelet Count 70 x10^3/uL (140-400) Sodium Level 131 mmol/L (136-145) 136 mmol/L (136-145) Potassium Level 4.9 mmol/L (3.5-5.1) 4.8 mmol/L (3.5-5.1) Chloride Level 94 mmol/L (98-107) 98 mmol/L (98-107) Carbon Dioxide Level 27 mmol/L (21-32) 28 mmol/L (21-32) Anion Gap 10 (6-14) 10 (6-14) Blood Urea Nitrogen 30 mg/dL (7-20) 25 mg/dL (7-20) Creatinine 3.9 mg/dL (0.6-1.0) 3.2 mg/dL (0.6-1.0) Estimated GFR (Cockcroft-Gault) 11.3 14.2 Glucose Level 168 mg/dL (70-99) 163 mg/dL (70-99) Calcium Level 8.6 mg/dL (8.5-10.1) 9.0 mg/dL (8.5-10.1) Magnesium Level 2.3 mg/dL (1.8-2.4) 2.2 mg/dL (1.8-2.4) Random Gentamicin Level 1.6 mcg/mL Phosphorus Level 3.3 mg/dL (2.6-4.7) Prothrombin Time 15.0 SEC (11.7-14.0) Prothromb Time International Ratio 1.3 (0.8-1.1) Laboratory Tests Test 01/23/17 05:32 01/23/17 08:45 Sodium Level 136 mmol/L (136-145) Potassium Level 4.8 mmol/L (3.5-5.1) Chloride Level 98 mmol/L (98-107) Carbon Dioxide Level 28 mmol/L (21-32) Anion Gap 10 (6-14) Blood Urea Nitrogen 25 mg/dL (7-20) Creatinine 3.2 mg/dL (0.6-1.0) Estimated GFR (Cockcroft-Gault) 14.2 Glucose Level 163 mg/dL (70-99) Calcium Level 9.0 mg/dL (8.5-10.1) Phosphorus Level 3.3 mg/dL (2.6-4.7) Magnesium Level 2.2 mg/dL (1.8-2.4) Prothrombin Time 15.0 SEC (11.7-14.0) Prothromb Time International Ratio 1.3 (0.8-1.1) Microbiology 01/16/17 Blood Culture - Final, Complete NO GROWTH AFTER 5 DAYS Medications Current Medications Sodium Chloride 500 ml @ 500 mls/hr 1X ONCE IV Last administered on t 06:45; Start 01/09/17 at 06:45; Stop 01/09/17 at 07:44; Status DC Diltiazem HCl (Cardizem) 10 mg 1X ONCE IVP Last administered on 01/09/17 07: 39; Start 01/09/17 at 07:30; Stop 01/09/17 at 07:31; Status DC Diltiazem HCl 125 mg/Dextrose 125 ml @ 0 mls/hr CONT PRN IV SEE I/O RECORD Last administered on 01/09/17 07:40; Start 01/09/17 at 07:30 Aspirin (Children'S Aspirin) 324 mg 1X ONCE PO Last administered on 01/09/17 08:15; Start 01/09/17 at 07:45; Stop 01/09/17 at 07:46; Status DC Darbepoetin Jerome (Aranesp) 60 mcg [id number] SQ Last administered on 01/16/17 21 :10; Start 01/09/17 at 21:00 Albumin Human 500 ml @ 125 mls/hr 1X ONCE IV Last administered on 01/09/17 13:02; Start 01/09/17 at 13:00; Stop 01/09/17 at 16:59; Status DC Albumin Human 500 ml @ 125 mls/hr 1X ONCE IV Last administered on 01/09/17 16:35; Start 01/09/17 at 16:00; Stop 01/09/17 at 19:59; Status DC Digoxin (Lanoxin) 500 mcg 1X ONCE IV Last administered on 01/09/17 13:03; Start 01/09/17 at 13:00; Stop 01/09/17 at 13:01; Status DC Sodium Chloride 1,000 ml @ 1,000 mls/hr Q1H PRN IV hypotension; Start 01/09/17 at 16:31; Stop 01/09/17 at 22:30; Status DC Sodium Chloride 1,000 ml @ 400 mls/hr Q2H30M PRN IV PATENCY; Start 01/09/17 at 16:31; Stop 01/10/17 at 04:30; Status DC Info (PHARMACY MONITORING -- do not chart) 1 each PRN DAILY PRN MC SEE COMMENTS ; Start 01/09/17 at 16:45; Status Cancel Fentanyl Citrate (Fentanyl 2ml Vial) 50 mcg PRN Q4HRS PRN IV PAIN Last administered on 01/21/17 16:55; Start 01/09/17 at 18:00 Oxycodone/ Acetaminophen (Percocet 5/325) 1 tab PRN Q4HRS PRN PO PAIN Last administered on 01/20/17 20:34; Start 01/09/17 at 18:00 Fentanyl Citrate (Fentanyl 2ml Vial) 50 mcg 1X ONCE IM ; Start 01/09/17 at 20: 00; Stop 01/09/17 at 20:01; Status Cancel Fentanyl Citrate (Fentanyl 2ml Vial) 50 mcg 1X ONCE IV Last administered on 19:57; Start 01/09/17 at 20:00; Stop 01/09/17 at 20:01; Status DC Allopurinol (Zyloprim) 100 mg DAILY PO Last administered on 01/23/17 13:08; Start 01/10/17 at 14:30 Aspirin (Ecotrin) 81 mg DAILY PO Last administered on 01/23/17 13:08; Start at 14:30 Atenolol (Tenormin) 50 mg DAILY PO Last administered on 01/12/17 09:09; Start 01/10/17 at 14:30; Stop 01/12/17 at 14:50; Status DC Calcium Acetate (Phoslo) 2,001 mg TIDWMEALS PO Last administered on 01/23/17 13 :08; Start 01/10/17 at 17:00 Vitamin B Complex/ Vitamin C (Tsering-Ray) 1 tab HS PO Last administered on 21:35; Start 01/10/17 at 21:00 Gabapentin (Neurontin) 100 mg BID PO Last administered on 01/23/17 13:08; Start 01/10/17 at 14:30 Meloxicam (Mobic) 7.5 mg DAILY PO Last administered on 01/23/17 13:14; Start at 14:30 Fish Oil (Fish Oil) 1,000 mg DAILY PO Last administered on 01/23/17 13:08; Start 01/11/17 at 09:00 Pantoprazole Sodium (Protonix) 40 mg DAILYAC PO Last administered on 01/23/17 13:08; Start 01/10/17 at 14:30 Digoxin (Lanoxin) 500 mcg 1X ONCE IV Last administered on 01/10/17 15:23; Start 01/10/17 at 15:30; Stop 01/10/17 at 15:31; Status DC Albumin Human 500 ml @ 125 mls/hr 1X ONCE IV Last administered on 01/10/17 15:22; Start 01/10/17 at 15:15; Stop 01/10/17 at 19:14; Status DC Lidocaine HCl (Xylocaine-Mpf 1% Vial) 2 ml STK-MED ONCE .ROUTE ; Start 01/11/17 at 08:47; Stop 01/11/17 at 08:48; Status DC Sodium Chloride 1,000 ml @ 1,000 mls/hr Q1H PRN IV hypotension; Start 01/11/17 at 08:55; Stop 01/11/17 at 14:54; Status DC Albumin Human 200 ml @ 200 mls/hr 1X PRN PRN IV Hypotension; Start 01/11/17 at 09:00; Stop 01/11/17 at 14:59; Status DC Acetaminophen (Tylenol) 500 mg 1X PRN PRN PO MILD PAIN / TEMP; Start 01/11/17 at 09:00; Stop 01/12/17 at 08:59; Status DC Diphenhydramine HCl (Benadryl) 25 mg 1X PRN PRN IV ITCHING Last administered on 01/11/17 13:30; Start 01/11/17 at 09:00; Stop 01/12/17 at 08:59; Status DC Info (PHARMACY MONITORING -- do not chart) 1 each PRN DAILY PRN MC SEE COMMENTS ; Start 01/11/17 at 09:00; Stop 01/18/17 at 08:14; Status DC Lidocaine HCl (Xylocaine-Mpf 1% Vial) 2 ml 1X ONCE INJ Last administered on 10:01; Start 01/11/17 at 09:00; Stop 01/11/17 at 09:02; Status DC Albumin Human 500 ml @ 125 mls/hr 1X ONCE IV Last administered on 01/11/17 11:50; Start 01/11/17 at 11:45; Stop 01/11/17 at 15:44; Status DC Nitroglycerin (Nitrostat) 0.4 mg STK-MED ONCE SL ; Start 01/11/17 at 12:07; Stop 01/11/17 at 12:08; Status DC Nitroglycerin (Nitrostat) 0.4 mg PRN Q5MIN PRN SL CHEST PAIN Last administered on 01/11/17 12:35; Start 01/11/17 at 12:15 Morphine Sulfate 3 mg 1X ONCE IV Last administered on 01/11/17 12:15; Start 01/11/17 at 12:15; Stop 01/11/17 at 12:16; Status DC Digoxin (Lanoxin) 250 mcg 1X ONCE IV Last administered on 01/11/17 12:34; Start 01/11/17 at 12:30; Stop 01/11/17 at 12:31; Status DC Fentanyl Citrate (Fentanyl 5ml Vial) 250 mcg STK-MED ONCE .ROUTE ; Start at 13:07; Stop 01/11/17 at 13:08; Status DC Midazolam HCl (Versed) 5 mg STK-MED ONCE .ROUTE ; Start 01/11/17 at 13:07; Stop 01/11/17 at 13:08; Status DC Iohexol (Omnipaque 350 Mg/ml) 100 ml STK-MED ONCE .ROUTE ; Start 01/11/17 at 13: 08; Stop 01/11/17 at 13:09; Status DC Heparin Sodium/ Sodium Chloride 500 ml @ As Directed STK-MED ONCE .ROUTE ; Start 01/11/17 at 13:09; Stop 01/11/17 at 13:10; Status DC Lidocaine HCl 20 ml STK-MED ONCE .ROUTE ; Start 01/11/17 at 13:09; Stop at 13:10; Status DC Heparin Sodium/ Sodium Chloride 1,000 unit 1X ONCE IART Last administered on 13:50; Start 01/11/17 at 13:45; Stop 01/11/17 at 13:46; Status DC Midazolam HCl (Versed) 1 mg 1X ONCE IV Last administered on 01/11/17 13:51; Start 01/11/17 at 13:45; Stop 01/11/17 at 13:46; Status DC Fentanyl Citrate (Fentanyl 5ml Vial) 50 mcg 1X ONCE IV Last administered on 13:51; Start 01/11/17 at 13:45; Stop 01/11/17 at 13:46; Status DC Iohexol (Omnipaque 350 Mg/ml) 81 ml 1X ONCE IART Last administered on 13:51; Start 01/11/17 at 13:45; Stop 01/11/17 at 13:46; Status DC Lidocaine HCl 12 ml 1X ONCE IJ Last administered on 01/11/17 13:50; Start at 13:45; Stop 01/11/17 at 13:46; Status DC Info (Do NOT chart on this entry -- for MONITORING) 1 each PRN DAILY PRN MC SEE COMMENTS; Start 01/11/17 at 14:00; Stop 01/13/17 at 13:59; Status DC Albumin Human 250 ml @ 62.5 mls/hr 1X ONCE IV Last administered on 01/11/17 14:15; Start 01/11/17 at 14:15; Stop 01/11/17 at 18:14; Status DC Digoxin (Lanoxin) 250 mcg 1X ONCE IV Last administered on 01/11/17 19:02; Start 01/11/17 at 18:45; Stop 01/11/17 at 18:46; Status DC Ondansetron HCl (Zofran) 8 mg PRN Q6HRS PRN IV NAUSEA/VOMITING Last administered on 01/15/17 04:04; Start 01/11/17 at 18:45 Enoxaparin Sodium (Lovenox 100mg Syringe) 90 mg Q24H SQ Last administered on 21:09; Start 01/11/17 at 20:00; Stop 01/15/17 at 11:08; Status DC Propafenone HCl (Rythmol) 75 mg BID PO Last administered on 01/23/17 13:09; Start 01/12/17 at 21:00; Stop 01/23/17 at 13:49; Status DC Norepinephrine Bitartrate 250 ml @ 0 mls/hr CONT PRN IV SEE I/O RECORD Last administered on 01/17/17 23:13; Start 01/12/17 at 15:45 Info (Anti-Coagulation Monitoring By Pharmacy) 1 each PRN DAILY PRN MC SEE COMMENTS Last administered on 01/23/17 12:35; Start 01/13/17 at 09:00 Magnesium Sulfate/ Dextrose 50 ml @ 25 mls/hr PRN DAILY PRN IV for Mag < 1.7 on am labs; Start 01/13/17 at 10:45 Sodium Chloride 1,000 ml @ 80 mls/hr [id number] IV Last administered on 10:50; Start 01/13/17 at 10:45; Stop 01/14/17 at 19:07; Status DC Sodium Chloride 500 ml @ 0 mls/hr QID PRN IV for MAP < 65 Last administered on 01/14/17 01:15; Start 01/13/17 at 10:45 Sodium Chloride 1,000 ml @ 1,000 mls/hr Q1H PRN IV hypotension; Start 01/14/17 at 09:11; Stop 01/14/17 at 15:10; Status DC Info (PHARMACY MONITORING -- do not chart) 1 each PRN DAILY PRN MC SEE COMMENTS ; Start 01/14/17 at 09:15; Status UNV Piperacillin Sod/ Tazobactam Sod 2.25 gm/Sodium Chloride 50 ml @ 100 mls/hr Q8HRS IV Last administered on 01/17/17 05:01; Start 01/14/17 at 12:30; Stop 01/17/17 at 14:30; Status DC Micafungin Sodium 100 mg/Dextrose 100 ml @ 100 mls/hr Q24H IV Last administered on 01/16/17 13:42; Start 01/14/17 at 13:00; Stop 01/17/17 at 14:30 ; Status DC Vancomycin HCl (Vanco Per Pharmacy) 1 each PRN DAILY PRN MC SEE COMMENTS Last administered on 01/17/17 11:01; Start 01/15/17 at 07:15; Stop 01/17/17 at 14:30; Status DC Vancomycin HCl 2 gm/Sodium Chloride 500 ml @ 250 mls/hr 1X ONCE IV Last administered on 01/15/17 07:55; Start 01/15/17 at 08:00; Stop 01/15/17 at 09:59 ; Status DC Metronidazole 100 ml @ 100 mls/hr Q8H IV Last administered on 01/16/17 00:03 ; Start 01/15/17 at 08:00; Stop 01/16/17 at 08:02; Status DC Iohexol (Omnipaque 300 Mg/ml) 75 ml 1X ONCE IV ; Start 01/15/17 at 08:00; Stop 01/15/17 at 08:01; Status DC Lidocaine/Sodium Bicarbonate (Buffered Lidocaine 1%) 3 ml 1X ONCE IJ Last administered on 01/15/17 09:00; Start 01/15/17 at 08:30; Stop 01/15/17 at 08:32 ; Status DC Heparin Sodium/ Sodium Chloride 60 unit 1X ONCE IV Last administered on 09:01; Start 01/15/17 at 08:30; Stop 01/15/17 at 08:32; Status DC Heparin Sodium (Porcine) (Heparin Sodium) 3,000 unit 1X ONCE IV Last administered on 01/15/17 20:21; Start 01/15/17 at 21:00; Stop 01/15/17 at 21:01 ; Status DC Heparin Sodium/ Dextrose 500 ml @ 0 mls/hr CONT PRN IV SEE I/O RECORD Last administered on 01/22/17 03:24; Start 01/15/17 at 21:00 Iohexol (Omnipaque 300 Mg/ml) 75 ml 1X ONCE IV Last administered on 01/15/17 12:15; Start 01/15/17 at 12:15; Stop 01/15/17 at 12:16; Status DC Info (Do NOT chart on this entry -- for MONITORING) 1 each PRN DAILY PRN MC SEE COMMENTS; Start 01/15/17 at 12:15; Stop 01/17/17 at 12:14; Status DC Vancomycin HCl 1 each 1X ONCE MC Last administered on 01/17/17 05:00; Start at 05:00; Stop 01/17/17 at 05:01; Status DC Info (PHARMACY MONITORING -- do not chart) 1 each PRN DAILY PRN MC SEE COMMENTS ; Start 01/16/17 at 07:45; Status UNV Info (PHARMACY MONITORING -- do not chart) 1 each PRN DAILY PRN MC SEE COMMENTS ; Start 01/16/17 at 07:45; Status UNV Info (PHARMACY MONITORING -- do not chart) 1 each PRN DAILY PRN MC SEE COMMENTS ; Start 01/16/17 at 07:45; Status UNV Sodium Chloride 1,000 ml @ 1,000 mls/hr Q1H PRN IV hypotension; Start 01/16/17 at 07:32; Stop 01/16/17 at 13:31; Status DC Albumin Human 200 ml @ 200 mls/hr 1X PRN PRN IV Hypotension; Start 01/16/17 at 07:45; Stop 01/16/17 at 13:44; Status DC Info (PHARMACY MONITORING -- do not chart) 1 each PRN DAILY PRN MC SEE COMMENTS ; Start 01/16/17 at 07:45; Status UNV Gentamicin Sulfate 1 each ONCE ONCE MC ; Start 01/16/17 at 08:00; Stop at 08:04; Status DC Gentamicin Sulfate 180 mg/ Sodium Chloride 104.5 ml @ 104.5 mls/ hr 1X ONCE IV Last administered on 01/16/17t 11:50; Start 01/16/17 at 09:00; Stop at 09:59; Status DC Lidocaine HCl (Xylocaine 2% Topical 5gm Tube) 1 edwardo 1X ONCE TP ; Start at 14:45; Stop 01/16/17 at 14:53; Status DC Lidocaine HCl (Viscous Lidocaine) 15 ml 1X ONCE MM ; Start 01/16/17 at 14:45; Stop 01/16/17 at 14:53; Status DC Benzocaine (Hurricaine One) 1spray 1X ONCE MM Last administered on 01/16/17t 14:45; Start 01/16/17 at 14:45; Stop 01/16/17 at 14:53; Status DC Ondansetron HCl (Zofran) 4 mg PRN Q6HRS PRN IV NAUSEA/VOMITING; Start 01/17/17 at 07:00; Stop 01/18/17 at 06:59; Status DC Fentanyl Citrate (Fentanyl 2ml Vial) 25 mcg PRN Q5MIN PRN IV MILD PAIN; Start 01/17/17 at 07:00; Stop 01/18/17 at 06:59; Status DC Fentanyl Citrate (Fentanyl 2ml Vial) 50 mcg PRN Q5MIN PRN IV MODERATE PAIN; Start 01/17/17 at 07:00; Stop 01/18/17 at 06:59; Status DC Morphine Sulfate 1 mg PRN Q10MIN PRN IV SEVERE PAIN; Start 01/17/17 at 07:00; Stop 01/18/17 at 06:59; Status DC Ringer's Solution 1,000 ml @ 30 mls/hr Q24H IV ; Start 01/17/17 at 07:00; Stop 01/17/17 at 18:59; Status DC Lidocaine HCl 2 ml PRN 1X PRN ID PRIOR TO IV START; Start 01/17/17 at 07:00; Stop 01/18/17 at 06:59; Status DC Hydromorphone HCl (Dilaudid) 0.5 mg PRN Q10MIN PRN IV SEV PAIN, Second choice; Start 01/17/17 at 07:00; Stop 01/18/17 at 06:59; Status DC Prochlorperazine Edisylate (Compazine) 5 mg PACU PRN PRN IV NAUSEA, MRX1; Start 01/17/17 at 07:00; Stop 01/18/17 at 06:59; Status DC Propofol 20 ml @ As Directed STK-MED ONCE IV ; Start 01/17/17 at 10:24; Stop 01/17 at 10:25; Status DC Phenylephrine HCl 1 mg STK-MED ONCE IV ; Start 01/17/17 at 10:24; Stop 01/17/17 at 10:25; Status DC Vancomycin HCl 500 mg/Sodium Chloride 100 ml @ 100 mls/hr QTUTHSA IV ; Start at 16:00; Stop 01/18/17 at 16:00; Status DC Ampicillin Sodium 2 gm/Sodium Chloride 100 ml @ 200 mls/hr Q8HRS IV Last administered on 01/23/17 13:09; Start 01/17/17 at 15:00 Gentamicin Sulfate 270 mg/ Sodium Chloride 106.75 ml @ 106.75 mls/hr Q24H IV ; Start 01/17/17 at 14:15; Status UNV Info 1 each PRN DAILY PRN MC SEE COMMENTS Last administered on 01/23/17 12:16; Start 01/17/17 at 21:30 Amino Acids/ Glycerin/ Electrolytes 1,000 ml @ 50 mls/hr Q20H IV Last administered on 01/17/17 21:46; Start 01/17/17 at 21:30; Stop 01/18/17 at 21:59; Status DC Sodium Chloride 1,000 ml @ 1,000 mls/hr Q1H PRN IV hypotension; Start 01/18/17 at 08:05; Stop 01/18/17 at 14:04; Status DC Sodium Chloride 1,000 ml @ 400 mls/hr Q2H30M PRN IV PATENCY; Start 01/18/17 at 08:05; Stop 01/18/17 at 20:04; Status DC Info (PHARMACY MONITORING -- do not chart) 1 each PRN DAILY PRN MC SEE COMMENTS ; Start 01/18/17 at 08:15; Status Cancel Info (PHARMACY MONITORING -- do not chart) 1 each PRN DAILY PRN MC SEE COMMENTS ; Start 01/18/17 at 08:15; Stop 01/18/17 at 08:15; Status DC Sodium Chloride 90 meq/Potassium Chloride 50 meq/ Potassium Phosphate 13.6 mmol/ Magnesium Sulfate 10 meq/ Calcium Gluconate 10 meq/ Multivitamins 10 ml/Chromium / Copper/Manganese/ Seleni/Zn 1 ml/ Total Parenteral Nutrition/Amino Acids/ Dextrose/ Fat Emulsion Intravenous 1,512 ml @ 63 mls/hr TPN CONT IV Last administered on 01/18/17 20:59; Start 01/18/17 at 22:00; Stop 01/19/17 at 21:59; Status DC Gentamicin Sulfate 270 mg/ Sodium Chloride 106.75 ml @ 106.75 mls/hr 1X ONCE IV Last administered on 01/18/17 16:51; Start 01/18/17 at 16:00; Stop 01/18/17 at 16:59; Status DC Sodium Chloride 90 meq/Potassium Chloride 50 meq/ Potassium Phosphate 13.6 mmol/ Magnesium Sulfate 10 meq/ Calcium Gluconate 10 meq/ Multivitamins 10 ml/Chromium / Copper/Manganese/ Seleni/Zn 1 ml/ Total Parenteral Nutrition/Amino Acids/ Dextrose/ Fat Emulsion Intravenous 1,320 ml @ 55 mls/hr TPN CONT IV Last administered on 01/19/17 21:18; Start 01/19/17 at 22:00; Stop 01/20/17 at 21:59; Status DC Warfarin Sodium (Coumadin) 5 mg 1X ONCE PO Last administered on 01/20/17 16:16 ; Start 01/20/17 at 16:00; Stop 01/20/17 at 16:01; Status DC Warfarin Sodium (Coumadin Per Physician) 1 each PRN DAILY PRN MC SEE COMMENTS Last administered on 01/23/17 12:38; Start 01/20/17 at 13:15 Sodium Chloride 90 meq/Potassium Chloride 50 meq/ Magnesium Sulfate 10 meq/ Calcium Gluconate 10 meq/ Multivitamins 10 ml/Chromium/ Copper/Manganese/ Seleni /Zn 1 ml/ Total Parenteral Nutrition/Amino Acids/Dextrose/ Fat Emulsion Intravenous 1,200 ml @ 50 mls/hr TPN CONT IV Last administered on 01/20/17 20 :35; Start 01/20/17 at 22:00; Stop 01/21/17 at 21:59; Status DC Sodium Chloride 1,000 ml @ 1,000 mls/hr Q1H PRN IV hypotension; Start 01/21/17 at 08:06; Stop 01/21/17 at 14:09; Status DC Sodium Chloride 1,000 ml @ 400 mls/hr Q2H30M PRN IV PATENCY; Start 01/21/17 at 08:06; Stop 01/21/17 at 20:05; Status DC Info (PHARMACY MONITORING -- do not chart) 1 each PRN DAILY PRN MC SEE COMMENTS ; Start 01/21/17 at 08:15; Status UNV Info (PHARMACY MONITORING -- do not chart) 1 each PRN DAILY PRN MC SEE COMMENTS ; Start 01/21/17 at 08:15; Status UNV Digoxin (Lanoxin) 250 mcg 1X ONCE IV Last administered on 01/21/17 12:13; Start 01/21/17 at 12:00; Stop 01/21/17 at 12:01; Status DC Sodium Chloride 120 meq/Potassium Chloride 20 meq/ Magnesium Sulfate 10 meq/ Calcium Gluconate 10 meq/ Multivitamins 10 ml/Chromium/ Copper/Manganese/ Seleni /Zn 1 ml/ Total Parenteral Nutrition/Amino Acids/Dextrose/ Fat Emulsion Intravenous 1,200 ml @ 50 mls/hr TPN CONT IV Last administered on 01/21/17 22 :12; Start 01/21/17 at 22:00; Stop 01/22/17 at 21:59; Status DC Acetaminophen (Tylenol) 650 mg PRN Q6HRS PRN PO MILD PAIN / TEMP Last administered on 01/22/17 19:29; Start 01/21/17 at 20:45 Sodium Chloride 140 meq/Potassium Chloride 20 meq/ Magnesium Sulfate 10 meq/ Calcium Gluconate 10 meq/ Multivitamins 10 ml/Chromium/ Copper/Manganese/ Seleni /Zn 1 ml/ Total Parenteral Nutrition/Amino Acids/Dextrose/ Fat Emulsion Intravenous 1,200 ml @ 50 mls/hr TPN CONT IV Last administered on 01/22/17 21 :24; Start 01/22/17 at 22:00; Stop 01/23/17 at 21:59 Info (PHARMACY MONITORING -- do not chart) 1 each PRN DAILY PRN MC SEE COMMENTS ; Start 01/22/17 at 10:15; Stop 01/22/17 at 14:38; Status DC Albumin Human 100 ml @ 100 mls/hr 1X ONCE IV Last administered on 01/22/17 15 :19; Start 01/22/17 at 12:15; Stop 01/22/17 at 13:14; Status DC Gentamicin Sulfate 270 mg/ Sodium Chloride 106.75 ml @ 106.75 mls/hr 1X ONCE IV Last administered on 01/22/17 17:41; Start 01/22/17 at 18:00; Stop 01/22/17 at 18:59; Status DC Digoxin (Lanoxin) 250 mcg 1X ONCE IV Last administered on 01/22/17 22:32; Start 01/22/17 at 22:30; Stop 01/22/17 at 22:31; Status DC Sodium Chloride 1,000 ml @ 1,000 mls/hr Q1H PRN IV hypotension; Start 01/23/17 at 07:54; Stop 01/23/17 at 13:53; Status DC Albumin Human 200 ml @ 200 mls/hr 1X PRN PRN IV Hypotension Last administered on 01/23/17 09:23; Start 01/23/17 at 08:00; Stop 01/23/17 at 13:59; Status DC Sodium Chloride 1,000 ml @ 400 mls/hr Q2H30M PRN IV PATENCY; Start 01/23/17 at 07:54; Stop 01/23/17 at 19:53 Info (PHARMACY MONITORING -- do not chart) 1 each PRN DAILY PRN MC SEE COMMENTS ; Start 01/23/17 at 08:00; Stop 01/23/17 at 08:10; Status DC Info (PHARMACY MONITORING -- do not chart) 1 each PRN DAILY PRN MC SEE COMMENTS ; Start 01/23/17 at 08:00 Sodium Chloride 110 meq/Potassium Chloride 20 meq/ Magnesium Sulfate 10 meq/ Calcium Gluconate 10 meq/ Multivitamins 10 ml/Chromium/ Copper/Manganese/ Seleni /Zn 1 ml/ Total Parenteral Nutrition/Amino Acids/Dextrose/ Fat Emulsion Intravenous 1,200 ml @ 50 mls/hr TPN CONT IV ; Start 01/23/17 at 22:00; Stop at 21:59 Propafenone HCl (Rythmol) 150 mg BID PO ; Start 01/23/17 at 21:00 Propafenone HCl (Rythmol) 75 mg 1X ONCE PO Last administered on 01/23/17t 14:11 ; Start 01/23/17 at 13:45; Stop 01/23/17 at 13:53; Status DC Warfarin Sodium (Coumadin) 5 mg 1X ONCE PO ; Start 01/23/17 at 16:00; Stop at 16:01 Active Scripts Active Reported Ferric Citrate 210 Mg Tablet 210 Mg PO Meloxicam 7.5 Mg Tablet 1 Tab PO DAILY Atenolol 50 Mg Tablet 1 Tab PO DAILY Tylenol (Acetaminophen) 325 Mg Tablet 500 Mg PO PRN Q6HRS PRN Aspir 81 (Aspirin) 81 Mg Tablet.dr 1 Tab PO DAILY Fish Oil 1,000 Mg Capsule ([place]-3 Fatty Acids/Fish Oil) 1 Each Capsule 1 Each PO BID Vitamin D2 (Ergocalciferol (Vitamin D2)) 50,000 Unit Capsule 50,000 Unit PO WEEKLY Allopurinol 100 Mg Tablet 1 Tab PO DAILY Nephro-Ray Tablet (Folic Acid/Vitamin B Comp W-C) 0.8 Mg Tablet 1 Tab PO HS Gabapentin 100 Mg Capsule 100 Mg PO BID Omeprazole 20 Mg Capsule. 20 Mg PO DAILY Calcium Acetate 667 Mg Capsule 2,001 Mg PO TIDWMEALS Vitals/I & O Vital Sign - Last 24 Hours 01/22/17 01/22/17 01/22/17 01/22/17 15:00 15:00 16:00 16:00 Temp 98.1 98.1 Pulse 81 86 94 Resp 12 15 B/P (MAP) 118/60 106/44 (64) 94/43 (60) Pulse Ox 93 94 O2 Delivery Room Air Room Air Room Air 01/22/17 01/22/17 01/22/17 01/22/17 17:00 18:00 19:00 20:00 Pulse 89 93 94 Resp 16 16 B/P (MAP) 102/46 (64) 99/46 (63) 124/62 (82) Pulse Ox 95 95 94 O2 Delivery Room Air Room Air Room Air Room Air 01/22/17 01/22/17 01/22/17 01/22/17 20:00 21:00 21:35 22:00 Temp 98.0 98.0 Pulse 84 94 95 98 Resp 18 16 15 B/P (MAP) 117/48 (71) 104/40 (61) 104/40 113/53 (73) Pulse Ox 95 93 94 O2 Delivery Room Air Room Air Room Air 01/22/17 01/22/17 01/23/17 01/23/17 22:32 23:00 00:00 00:00 Temp 97.5 97.5 Pulse 101 94 94 Resp 20 22 B/P (MAP) 113/53 98/40 (59) 122/49 (73) Pulse Ox 92 93 O2 Delivery Room Air Room Air Room Air 01/23/17 01/23/17 01/23/17 01/23/17 01:00 02:00 03:00 04:00 Pulse 94 104 84 Resp 15 16 22 B/P (MAP) 119/49 (72) 118/46 (70) 128/47 (74) Pulse Ox 94 95 97 O2 Delivery Room Air Room Air Room Air Room Air 01/23/17 01/23/17 01/23/17 01/23/17 04:00 05:00 06:00 07:04 Temp 97.5 97.5 Pulse 96 92 93 93 Resp 17 16 16 22 B/P (MAP) 121/64 (83) 100/51 (67) 131/52 (78) 110/48 (68) Pulse Ox 97 95 95 94 O2 Delivery Room Air Room Air Room Air Room Air 01/23/17 01/23/17 01/23/17 01/23/17 08:00 08:00 09:00 10:00 Temp 97.8 97.8 Pulse 95 96 98 Resp 20 20 20 B/P (MAP) 101/42 (61) 97/39 (58) 102/54 (70) Pulse Ox 94 96 97 O2 Delivery Room Air Room Air Room Air Room Air 01/23/17 01/23/17 01/23/177/17 11:00 12:00 12:00 13:00 Temp 97.9 97.9 Pulse 110 96 98 Resp 20 20 20 B/P (MAP) 104/78 (87) 117/47 (70) 115/47 (69) Pulse Ox 96 96 94 O2 Delivery Room Air Room Air Room Air Room Air 01/23/17 01/23/17 13:09 14:11 Pulse 96 96 B/P (MAP) 117/47 117/47 Intake and Output 01/23/17 01/23/17 01/24/17 15:00 23:00 07:00 Intake Total 160 ml Balance 160 ml RADHA WOODRUFF MD Jan 23, 2017 14:19
[2017-01-23] MEDS ORDERED: WARFARIN 5 MG TABLET. PO ONE (16:00)
[2017-01-23] MEDS ORDERED: BISACODYL 10 MG SUPP.RECT. PR PRN (18:30)
[2017-01-23] MEDS: FOLIC/VIT B COMP W-C (RENAL) TABLET. PO SCH (21:25)
[2017-01-23] MEDS: DARBEPOETIN ALFA 60 MCG/0.3 ML DISP.SYRIN. SQ SCH (21:26)
[2017-01-23] MEDS ORDERED: AMINO ACIDS IV SCH ×9 (22:00)
[2017-01-23] MEDS ORDERED: [UNRECOGNIZED DRUG - OTHER] IV SCH ×9 (22:00)
[2017-01-23] MEDS ORDERED: TOTAL PARENTERAL NUTRITION IV SCH ×9 (22:00)
[2017-01-23] MEDS ORDERED: DEXTROSE 70% IV SCH ×9 (22:00)
[2017-01-24] VITALS (18 sets, daily range): BP systolic 91–147; BP diastolic 38–55
[2017-01-24] MEDS: AMPICILLIN SODIUM 2 GM in IV NORMAL SALINE 100ML 100 ML IV SCH ×2 (05:40→15:59)
[2017-01-24 06:39] LABS: CALCIUM 9.3 mg/dL (8.5-10.1); CREATININE 2.9 mg/dL (0.6-1.0); GFR 15.9; MAGNESIUM 2.3 mg/dL (1.8-2.4); PHOSPHORUS 2.9 mg/dL (2.6-4.7); POTASSIUM 4.6 mmol/L (3.5-5.1)
--- NOTE | 2017-01-24 07:47 | PDOC ---
Infectious Disease Note Subjective Subjective Feeling better, very very weak ROS ROS GEN: Denies fevers, chills, sweats HEENT: Denies blurred vision, sore throat CV: Denies chest pain RESP: Denies shortness of air, cough GI: Denies n/v/d NEURO: Denies confusion, dizziness Vital Sign Vital Signs Vital Signs Date Time Temp Pulse Resp B/P (MAP) Pulse Ox O2 Delivery O2 Flow Rate FiO2 01/24/17 06:00 76 20 120/49 (72) 92 Room Air 01/24/17 00:01 97.6 97.6 Physical Exam PHYSICAL EXAM GENERAL: NAD, Alert HEENT: PERRL, OC/OP NECK: Supple, no JVD, no LN LUNGS: Clear HEART: S1S2, no gallop, no murmur ABD: Soft, NT, no organomegaly, no rebound EXT: No edema, no cyanosis [employer]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 SHIFT: Alert, 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, no focal neurologic deficit SKIN: No rash IV: ok Labs Lab Laboratory Tests Test 01/23/17 08:45 01/24/17 05:45 Prothrombin Time 15.0 SEC (11.7-14.0) Prothromb Time International Ratio 1.3 (0.8-1.1) Sodium Level 137 mmol/L (136-145) Potassium Level 4.6 mmol/L (3.5-5.1) Chloride Level 99 mmol/L (98-107) Carbon Dioxide Level 28 mmol/L (21-32) Anion Gap 10 (6-14) Blood Urea Nitrogen 26 mg/dL (7-20) Creatinine 2.9 mg/dL (0.6-1.0) Estimated GFR (Cockcroft-Gault) 15.9 Glucose Level 188 mg/dL (70-99) Calcium Level 9.3 mg/dL (8.5-10.1) Phosphorus Level 2.9 mg/dL (2.6-4.7) Magnesium Level 2.3 mg/dL (1.8-2.4) Micro BC enterococcus Objective Assessment Enterococcus sepsis, 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 -TTE AV + mass on noncoronary cusp AV. MARY JANE 2 x 1 x 2 cm on AV & small mobile veg MV -Repeat BC NGTD, 01/16 Hypotension, on Levophed gtt Abnormal splenic lesion CT- c/w hemangioma; appreciate surgery's input Leukocytosis, trending down Encephalopathy, better Generalized aches - no history of PMR or fibromyalgia per . no joint inflammation Afib RVR + MRSA screen Recent UTI H/o C-diff Thrombocytopenia CKD/HD Plan Plan of Care Ampicillin (started 01/17) and gent for synergy Monitor WBC, Temp D/w in very detail,, ideally she need surgery with 2.1 cm vegetation, but pt is not a surgical candidate, pros cons, complications , treatment etc discussed, all questions answered pt/ot ok to d/c to [facility] YENIFER ACOSTA MD Jan 24, 2017 07:47
[2017-01-24 07:50] LABS: INR 1.4 (0.8-1.1); PROTHROMBIN TIME PATIENT 16.2 SEC (11.7-14.0)
[2017-01-24] MEDS ORDERED: IV NORMAL SALINE 1000ML BAG 1,000 ML IV PRN (08:39)
[2017-01-24] MEDS ORDERED: ALBUMIN HUMAN 25% 200 ML IV PRN (08:45)
[2017-01-24] MEDS ORDERED: DIALYSIS PATIENT. MC PRN ×2 (08:45)
--- NOTE | 2017-01-24 09:31 | PDOC ---
PROGRESS NOTES Assessment Problems Medical Problems: (1) Non-STEMI (non-ST elevated myocardial infarction) Status: Acute Metabolic encephalopathy. Generalized weakness. New onset Afib. CHF Renal failure on dialysis. Sepsis. DM HTN Anemia. Gout Obesity Plan Treat medical and cardiac disease. Subjective No complaints Objective Vital Signs Date Time Temp Pulse Resp B/P (MAP) Pulse Ox O2 Delivery O2 Flow Rate FiO2 01/24/17 09:00 79 21 99/42 (61) 97 Room Air 01/24/17 08:00 98.8 98.8 PHYSICAL EXAM Drowsy, alerts easily. Oriented to place and person. PERRL. EOMI. CN: no focal findings. Muscle tone: normal. Muscle strength: 2-/5 DTR: 1+ Plantar reflex: flexor Gait: not examined in bed. Sensory exam: no abnormal findings. No cerebellar signs elicited Review of Relevant I have reviewed the following items mcihelle (where applicable) has been applied. Labs Laboratory Tests Test 01/23/17 05:32 01/23/17 08:45 01/24/17 05:45 01/24/17 07:15 Sodium Level 136 mmol/L (136-145) 137 mmol/L (136-145) Potassium Level 4.8 mmol/L (3.5-5.1) 4.6 mmol/L (3.5-5.1) Chloride Level 98 mmol/L (98-107) 99 mmol/L (98-107) Carbon Dioxide Level 28 mmol/L (21-32) 28 mmol/L (21-32) Anion Gap 10 (6-14) 10 (6-14) Blood Urea Nitrogen 25 mg/dL (7-20) 26 mg/dL (7-20) Creatinine 3.2 mg/dL (0.6-1.0) 2.9 mg/dL (0.6-1.0) Estimated GFR (Cockcroft-Gault) 14.2 15.9 Glucose Level 163 mg/dL (70-99) 188 mg/dL (70-99) Calcium Level 9.0 mg/dL (8.5-10.1) 9.3 mg/dL (8.5-10.1) Phosphorus Level 3.3 mg/dL (2.6-4.7) 2.9 mg/dL (2.6-4.7) Magnesium Level 2.2 mg/dL (1.8-2.4) 2.3 mg/dL (1.8-2.4) Prothrombin Time 15.0 SEC (11.7-14.0) 16.2 SEC (11.7-14.0) Prothromb Time International Ratio 1.3 (0.8-1.1) 1.4 (0.8-1.1) Heparin Anti-Xa Act, Unfractionated < 0.10 IU/mL (0.30-0.70) Laboratory Tests Test 01/24/17 05:45 01/24/17 07:15 Sodium Level 137 mmol/L (136-145) Potassium Level 4.6 mmol/L (3.5-5.1) Chloride Level 99 mmol/L (98-107) Carbon Dioxide Level 28 mmol/L (21-32) Anion Gap 10 (6-14) Blood Urea Nitrogen 26 mg/dL (7-20) Creatinine 2.9 mg/dL (0.6-1.0) Estimated GFR (Cockcroft-Gault) 15.9 Glucose Level 188 mg/dL (70-99) Calcium Level 9.3 mg/dL (8.5-10.1) Phosphorus Level 2.9 mg/dL (2.6-4.7) Magnesium Level 2.3 mg/dL (1.8-2.4) Prothrombin Time 16.2 SEC (11.7-14.0) Prothromb Time International Ratio 1.4 (0.8-1.1) Heparin Anti-Xa Act, Unfractionated < 0.10 IU/mL (0.30-0.70) Microbiology 01/16/17 Blood Culture - Final, Complete NO GROWTH AFTER 5 DAYS Medications Current Medications Sodium Chloride 500 ml @ 500 mls/hr 1X ONCE IV Last administered on 06:45; Start 01/09/17 at 06:45; Stop 01/09/17 at 07:44; Status DC Diltiazem HCl (Cardizem) 10 mg 1X ONCE IVP Last administered on 01/09/17 07: 39; Start 01/09/17 at 07:30; Stop 01/09/17 at 07:31; Status DC Diltiazem HCl 125 mg/Dextrose 125 ml @ 0 mls/hr CONT PRN IV SEE I/O RECORD Last administered on 01/09/17 07:40; Start 01/09/17 at 07:30 Aspirin (Children'S Aspirin) 324 mg 1X ONCE PO Last administered on 01/09/17 08:15; Start 01/09/17 at 07:45; Stop 01/09/17 at 07:46; Status DC Darbepoetin Jerome (Aranesp) 60 mcg [id number] SQ Last administered on 01/23/17 21: 26; Start 01/09/17 at 21:00 Albumin Human 500 ml @ 125 mls/hr 1X ONCE IV Last administered on 01/09/17 13:02; Start 01/09/17 at 13:00; Stop 01/09/17 at 16:59; Status DC Albumin Human 500 ml @ 125 mls/hr 1X ONCE IV Last administered on 01/09/17 16:35; Start 01/09/17 at 16:00; Stop 01/09/17 at 19:59; Status DC Digoxin (Lanoxin) 500 mcg 1X ONCE IV Last administered on 01/09/17 13:03; Start 01/09/17 at 13:00; Stop 01/09/17 at 13:01; Status DC Sodium Chloride 1,000 ml @ 1,000 mls/hr Q1H PRN IV hypotension; Start 01/09/17 at 16:31; Stop 01/09/17 at 22:30; Status DC Sodium Chloride 1,000 ml @ 400 mls/hr Q2H30M PRN IV PATENCY; Start 01/09/17 at 16:31; Stop 01/10/17 at 04:30; Status DC Info (PHARMACY MONITORING -- do not chart) 1 each PRN DAILY PRN MC SEE COMMENTS ; Start 01/09/17 at 16:45; Status Cancel Fentanyl Citrate (Fentanyl 2ml Vial) 50 mcg PRN Q4HRS PRN IV PAIN Last administered on 01/21/17 16:55; Start 01/09/17 at 18:00 Oxycodone/ Acetaminophen (Percocet 5/325) 1 tab PRN Q4HRS PRN PO PAIN Last administered on 01/20/17 20:34; Start 01/09/17 at 18:00 Fentanyl Citrate (Fentanyl 2ml Vial) 50 mcg 1X ONCE IM ; Start 01/09/17 at 20: 00; Stop 01/09/17 at 20:01; Status Cancel Fentanyl Citrate (Fentanyl 2ml Vial) 50 mcg 1X ONCE IV Last administered on 19:57; Start 01/09/17 at 20:00; Stop 01/09/17 at 20:01; Status DC Allopurinol (Zyloprim) 100 mg DAILY PO Last administered on 01/23/17 13:08; Start 01/10/17 at 14:30 Aspirin (Ecotrin) 81 mg DAILY PO Last administered on 01/23/17 13:08; Start at 14:30 Atenolol (Tenormin) 50 mg DAILY PO Last administered on 01/12/17 09:09; Start 01/10/17 at 14:30; Stop 01/12/17 at 14:50; Status DC Calcium Acetate (Phoslo) 2,001 mg TIDWMEALS PO Last administered on 01/23/17 17 :13; Start 01/10/17 at 17:00 Vitamin B Complex/ Vitamin C (Tsering-Ray) 1 tab HS PO Last administered on 21:25; Start 01/10/17 at 21:00 Gabapentin (Neurontin) 100 mg BID PO Last administered on 01/23/17 21:26; Start 01/10/17 at 14:30 Meloxicam (Mobic) 7.5 mg DAILY PO Last administered on 01/23/17 13:14; Start at 14:30 Fish Oil (Fish Oil) 1,000 mg DAILY PO Last administered on 01/23/17 13:08; Start 01/11/17 at 09:00 Pantoprazole Sodium (Protonix) 40 mg DAILYAC PO Last administered on 01/23/17 13:08; Start 01/10/17 at 14:30 Digoxin (Lanoxin) 500 mcg 1X ONCE IV Last administered on 01/10/17 15:23; Start 01/10/17 at 15:30; Stop 01/10/17 at 15:31; Status DC Albumin Human 500 ml @ 125 mls/hr 1X ONCE IV Last administered on 01/10/17 15:22; Start 01/10/17 at 15:15; Stop 01/10/17 at 19:14; Status DC Lidocaine HCl (Xylocaine-Mpf 1% Vial) 2 ml STK-MED ONCE .ROUTE ; Start 01/11/17 at 08:47; Stop 01/11/17 at 08:48; Status DC Sodium Chloride 1,000 ml @ 1,000 mls/hr Q1H PRN IV hypotension; Start 01/11/17 at 08:55; Stop 01/11/17 at 14:54; Status DC Albumin Human 200 ml @ 200 mls/hr 1X PRN PRN IV Hypotension; Start 01/11/17 at 09:00; Stop 01/11/17 at 14:59; Status DC Acetaminophen (Tylenol) 500 mg 1X PRN PRN PO MILD PAIN / TEMP; Start 01/11/17 at 09:00; Stop 01/12/17 at 08:59; Status DC Diphenhydramine HCl (Benadryl) 25 mg 1X PRN PRN IV ITCHING Last administered on 01/11/17 13:30; Start 01/11/17 at 09:00; Stop 01/12/17 at 08:59; Status DC Info (PHARMACY MONITORING -- do not chart) 1 each PRN DAILY PRN MC SEE COMMENTS ; Start 01/11/17 at 09:00; Stop 01/18/17 at 08:14; Status DC Lidocaine HCl (Xylocaine-Mpf 1% Vial) 2 ml 1X ONCE INJ Last administered on 10:01; Start 01/11/17 at 09:00; Stop 01/11/17 at 09:02; Status DC Albumin Human 500 ml @ 125 mls/hr 1X ONCE IV Last administered on 01/11/17 11:50; Start 01/11/17 at 11:45; Stop 01/11/17 at 15:44; Status DC Nitroglycerin (Nitrostat) 0.4 mg STK-MED ONCE SL ; Start 01/11/17 at 12:07; Stop 01/11/17 at 12:08; Status DC Nitroglycerin (Nitrostat) 0.4 mg PRN Q5MIN PRN SL CHEST PAIN Last administered on 01/11/17 12:35; Start 01/11/17 at 12:15 Morphine Sulfate 3 mg 1X ONCE IV Last administered on 01/11/17 12:15; Start 01/11/17 at 12:15; Stop 01/11/17 at 12:16; Status DC Digoxin (Lanoxin) 250 mcg 1X ONCE IV Last administered on 01/11/17 12:34; Start 01/11/17 at 12:30; Stop 01/11/17 at 12:31; Status DC Fentanyl Citrate (Fentanyl 5ml Vial) 250 mcg STK-MED ONCE .ROUTE ; Start at 13:07; Stop 01/11/17 at 13:08; Status DC Midazolam HCl (Versed) 5 mg STK-MED ONCE .ROUTE ; Start 01/11/17 at 13:07; Stop 01/11/17 at 13:08; Status DC Iohexol (Omnipaque 350 Mg/ml) 100 ml STK-MED ONCE .ROUTE ; Start 01/11/17 at 13: 08; Stop 01/11/17 at 13:09; Status DC Heparin Sodium/ Sodium Chloride 500 ml @ As Directed STK-MED ONCE .ROUTE ; Start 01/11/17 at 13:09; Stop 01/11/17 at 13:10; Status DC Lidocaine HCl 20 ml STK-MED ONCE .ROUTE ; Start 01/11/17 at 13:09; Stop at 13:10; Status DC Heparin Sodium/ Sodium Chloride 1,000 unit 1X ONCE IART Last administered on 13:50; Start 01/11/17 at 13:45; Stop 01/11/17 at 13:46; Status DC Midazolam HCl (Versed) 1 mg 1X ONCE IV Last administered on 01/11/17 13:51; Start 01/11/17 at 13:45; Stop 01/11/17 at 13:46; Status DC Fentanyl Citrate (Fentanyl 5ml Vial) 50 mcg 1X ONCE IV Last administered on 13:51; Start 01/11/17 at 13:45; Stop 01/11/17 at 13:46; Status DC Iohexol (Omnipaque 350 Mg/ml) 81 ml 1X ONCE IART Last administered on 13:51; Start 01/11/17 at 13:45; Stop 01/11/17 at 13:46; Status DC Lidocaine HCl 12 ml 1X ONCE IJ Last administered on 01/11/17 13:50; Start at 13:45; Stop 01/11/17 at 13:46; Status DC Info (Do NOT chart on this entry -- for MONITORING) 1 each PRN DAILY PRN MC SEE COMMENTS; Start 01/11/17 at 14:00; Stop 01/13/17 at 13:59; Status DC Albumin Human 250 ml @ 62.5 mls/hr 1X ONCE IV Last administered on 01/11/17 14:15; Start 01/11/17 at 14:15; Stop 01/11/17 at 18:14; Status DC Digoxin (Lanoxin) 250 mcg 1X ONCE IV Last administered on 01/11/17 19:02; Start 01/11/17 at 18:45; Stop 01/11/17 at 18:46; Status DC Ondansetron HCl (Zofran) 8 mg PRN Q6HRS PRN IV NAUSEA/VOMITING Last administered on 01/15/17 04:04; Start 01/11/17 at 18:45 Enoxaparin Sodium (Lovenox 100mg Syringe) 90 mg Q24H SQ Last administered on 21:09; Start 01/11/17 at 20:00; Stop 01/15/17 at 11:08; Status DC Propafenone HCl (Rythmol) 75 mg BID PO Last administered on 01/23/17 13:09; Start 01/12/17 at 21:00; Stop 01/23/17 at 13:49; Status DC Norepinephrine Bitartrate 250 ml @ 0 mls/hr CONT PRN IV SEE I/O RECORD Last administered on 01/17/17 23:13; Start 01/12/17 at 15:45 Info (Anti-Coagulation Monitoring By Pharmacy) 1 each PRN DAILY PRN MC SEE COMMENTS Last administered on 01/23/17 12:35; Start 01/13/17 at 09:00 Magnesium Sulfate/ Dextrose 50 ml @ 25 mls/hr PRN DAILY PRN IV for Mag < 1.7 on am labs; Start 01/13/17 at 10:45 Sodium Chloride 1,000 ml @ 80 mls/hr [id number] IV Last administered on 10:50; Start 01/13/17 at 10:45; Stop 01/14/17 at 19:07; Status DC Sodium Chloride 500 ml @ 0 mls/hr QID PRN IV for MAP < 65 Last administered on 01/14/17 01:15; Start 01/13/17 at 10:45 Sodium Chloride 1,000 ml @ 1,000 mls/hr Q1H PRN IV hypotension; Start 01/14/17 at 09:11; Stop 01/14/17 at 15:10; Status DC Info (PHARMACY MONITORING -- do not chart) 1 each PRN DAILY PRN MC SEE COMMENTS ; Start 01/14/17 at 09:15; Status UNV Piperacillin Sod/ Tazobactam Sod 2.25 gm/Sodium Chloride 50 ml @ 100 mls/hr Q8HRS IV Last administered on 01/17/17 05:01; Start 01/14/17 at 12:30; Stop 01/17/17 at 14:30; Status DC Micafungin Sodium 100 mg/Dextrose 100 ml @ 100 mls/hr Q24H IV Last administered on 01/16/17 13:42; Start 01/14/17 at 13:00; Stop 01/17/17 at 14:30 ; Status DC Vancomycin HCl (Vanco Per Pharmacy) 1 each PRN DAILY PRN MC SEE COMMENTS Last administered on 01/17/17 11:01; Start 01/15/17 at 07:15; Stop 01/17/17 at 14:30; Status DC Vancomycin HCl 2 gm/Sodium Chloride 500 ml @ 250 mls/hr 1X ONCE IV Last administered on 01/15/17 07:55; Start 01/15/17 at 08:00; Stop 01/15/17 at 09:59 ; Status DC Metronidazole 100 ml @ 100 mls/hr Q8H IV Last administered on 01/16/17 00:03 ; Start 01/15/17 at 08:00; Stop 01/16/17 at 08:02; Status DC Iohexol (Omnipaque 300 Mg/ml) 75 ml 1X ONCE IV ; Start 01/15/17 at 08:00; Stop 01/15/17 at 08:01; Status DC Lidocaine/Sodium Bicarbonate (Buffered Lidocaine 1%) 3 ml 1X ONCE IJ Last administered on 01/15/17 09:00; Start 01/15/17 at 08:30; Stop 01/15/17 at 08:32 ; Status DC Heparin Sodium/ Sodium Chloride 60 unit 1X ONCE IV Last administered on 09:01; Start 01/15/17 at 08:30; Stop 01/15/17 at 08:32; Status DC Heparin Sodium (Porcine) (Heparin Sodium) 3,000 unit 1X ONCE IV Last administered on 01/15/17 20:21; Start 01/15/17 at 21:00; Stop 01/15/17 at 21:01 ; Status DC Heparin Sodium/ Dextrose 500 ml @ 0 mls/hr CONT PRN IV SEE I/O RECORD Last administered on 01/22/17 03:24; Start 01/15/17 at 21:00 Iohexol (Omnipaque 300 Mg/ml) 75 ml 1X ONCE IV Last administered on 01/15/17 12:15; Start 01/15/17 at 12:15; Stop 01/15/17 at 12:16; Status DC Info (Do NOT chart on this entry -- for MONITORING) 1 each PRN DAILY PRN MC SEE COMMENTS; Start 01/15/17 at 12:15; Stop 01/17/17 at 12:14; Status DC Vancomycin HCl 1 each 1X ONCE MC Last administered on 01/17/17 05:00; Start at 05:00; Stop 01/17/17 at 05:01; Status DC Info (PHARMACY MONITORING -- do not chart) 1 each PRN DAILY PRN MC SEE COMMENTS ; Start 01/16/17 at 07:45; Status UNV Info (PHARMACY MONITORING -- do not chart) 1 each PRN DAILY PRN MC SEE COMMENTS ; Start 01/16/17 at 07:45; Status UNV Info (PHARMACY MONITORING -- do not chart) 1 each PRN DAILY PRN MC SEE COMMENTS ; Start 01/16/17 at 07:45; Status UNV Sodium Chloride 1,000 ml @ 1,000 mls/hr Q1H PRN IV hypotension; Start 01/16/17 at 07:32; Stop 01/16/17 at 13:31; Status DC Albumin Human 200 ml @ 200 mls/hr 1X PRN PRN IV Hypotension; Start 01/16/17 at 07:45; Stop 01/16/17 at 13:44; Status DC Info (PHARMACY MONITORING -- do not chart) 1 each PRN DAILY PRN MC SEE COMMENTS ; Start 01/16/17 at 07:45; Status UNV Gentamicin Sulfate 1 each ONCE ONCE MC ; Start 01/16/17 at 08:00; Stop at 08:04; Status DC Gentamicin Sulfate 180 mg/ Sodium Chloride 104.5 ml @ 104.5 mls/ hr 1X ONCE IV Last administered on 01/16/17t 11:50; Start 01/16/17 at 09:00; Stop at 09:59; Status DC Lidocaine HCl (Xylocaine 2% Topical 5gm Tube) 1 edwardo 1X ONCE TP ; Start at 14:45; Stop 01/16/17 at 14:53; Status DC Lidocaine HCl (Viscous Lidocaine) 15 ml 1X ONCE MM ; Start 01/16/17 at 14:45; Stop 01/16/17 at 14:53; Status DC Benzocaine (Hurricaine One) 1spray 1X ONCE MM Last administered on 01/16/17t 14:45; Start 01/16/17 at 14:45; Stop 01/16/17 at 14:53; Status DC Ondansetron HCl (Zofran) 4 mg PRN Q6HRS PRN IV NAUSEA/VOMITING; Start 01/17/17 at 07:00; Stop 01/18/17 at 06:59; Status DC Fentanyl Citrate (Fentanyl 2ml Vial) 25 mcg PRN Q5MIN PRN IV MILD PAIN; Start 01/17/17 at 07:00; Stop 01/18/17 at 06:59; Status DC Fentanyl Citrate (Fentanyl 2ml Vial) 50 mcg PRN Q5MIN PRN IV MODERATE PAIN; Start 01/17/17 at 07:00; Stop 01/18/17 at 06:59; Status DC Morphine Sulfate 1 mg PRN Q10MIN PRN IV SEVERE PAIN; Start 01/17/17 at 07:00; Stop 01/18/17 at 06:59; Status DC Ringer's Solution 1,000 ml @ 30 mls/hr Q24H IV ; Start 01/17/17 at 07:00; Stop 01/17/17 at 18:59; Status DC Lidocaine HCl 2 ml PRN 1X PRN ID PRIOR TO IV START; Start 01/17/17 at 07:00; Stop 01/18/17 at 06:59; Status DC Hydromorphone HCl (Dilaudid) 0.5 mg PRN Q10MIN PRN IV SEV PAIN, Second choice; Start 01/17/17 at 07:00; Stop 01/18/17 at 06:59; Status DC Prochlorperazine Edisylate (Compazine) 5 mg PACU PRN PRN IV NAUSEA, MRX1; Start 01/17/17 at 07:00; Stop 01/18/17 at 06:59; Status DC Propofol 20 ml @ As Directed STK-MED ONCE IV ; Start 01/17/17 at 10:24; Stop 01/17 at 10:25; Status DC Phenylephrine HCl 1 mg STK-MED ONCE IV ; Start 01/17/17 at 10:24; Stop 01/17/17 at 10:25; Status DC Vancomycin HCl 500 mg/Sodium Chloride 100 ml @ 100 mls/hr QTUTHSA IV ; Start at 16:00; Stop 01/18/17 at 16:00; Status DC Ampicillin Sodium 2 gm/Sodium Chloride 100 ml @ 200 mls/hr Q8HRS IV Last administered on 01/24/17 05:40; Start 01/17/17 at 15:00 Gentamicin Sulfate 270 mg/ Sodium Chloride 106.75 ml @ 106.75 mls/hr Q24H IV ; Start 01/17/17 at 14:15; Status UNV Info 1 each PRN DAILY PRN MC SEE COMMENTS Last administered on 01/23/17 12:16; Start 01/17/17 at 21:30 Amino Acids/ Glycerin/ Electrolytes 1,000 ml @ 50 mls/hr Q20H IV Last administered on 01/17/17 21:46; Start 01/17/17 at 21:30; Stop 01/18/17 at 21:59; Status DC Sodium Chloride 1,000 ml @ 1,000 mls/hr Q1H PRN IV hypotension; Start 01/18/17 at 08:05; Stop 01/18/17 at 14:04; Status DC Sodium Chloride 1,000 ml @ 400 mls/hr Q2H30M PRN IV PATENCY; Start 01/18/17 at 08:05; Stop 01/18/17 at 20:04; Status DC Info (PHARMACY MONITORING -- do not chart) 1 each PRN DAILY PRN MC SEE COMMENTS ; Start 01/18/17 at 08:15; Status Cancel Info (PHARMACY MONITORING -- do not chart) 1 each PRN DAILY PRN MC SEE COMMENTS ; Start 01/18/17 at 08:15; Stop 01/18/17 at 08:15; Status DC Sodium Chloride 90 meq/Potassium Chloride 50 meq/ Potassium Phosphate 13.6 mmol/ Magnesium Sulfate 10 meq/ Calcium Gluconate 10 meq/ Multivitamins 10 ml/Chromium / Copper/Manganese/ Seleni/Zn 1 ml/ Total Parenteral Nutrition/Amino Acids/ Dextrose/ Fat Emulsion Intravenous 1,512 ml @ 63 mls/hr TPN CONT IV Last administered on 01/18/17 20:59; Start 01/18/17 at 22:00; Stop 01/19/17 at 21:59; Status DC Gentamicin Sulfate 270 mg/ Sodium Chloride 106.75 ml @ 106.75 mls/hr 1X ONCE IV Last administered on 01/18/17 16:51; Start 01/18/17 at 16:00; Stop 01/18/17 at 16:59; Status DC Sodium Chloride 90 meq/Potassium Chloride 50 meq/ Potassium Phosphate 13.6 mmol/ Magnesium Sulfate 10 meq/ Calcium Gluconate 10 meq/ Multivitamins 10 ml/Chromium / Copper/Manganese/ Seleni/Zn 1 ml/ Total Parenteral Nutrition/Amino Acids/ Dextrose/ Fat Emulsion Intravenous 1,320 ml @ 55 mls/hr TPN CONT IV Last administered on 01/19/17 21:18; Start 01/19/17 at 22:00; Stop 01/20/17 at 21:59; Status DC Warfarin Sodium (Coumadin) 5 mg 1X ONCE PO Last administered on 01/20/17 16:16 ; Start 01/20/17 at 16:00; Stop 01/20/17 at 16:01; Status DC Warfarin Sodium (Coumadin Per Physician) 1 each PRN DAILY PRN MC SEE COMMENTS Last administered on 01/23/17 12:38; Start 01/20/17 at 13:15 Sodium Chloride 90 meq/Potassium Chloride 50 meq/ Magnesium Sulfate 10 meq/ Calcium Gluconate 10 meq/ Multivitamins 10 ml/Chromium/ Copper/Manganese/ Seleni /Zn 1 ml/ Total Parenteral Nutrition/Amino Acids/Dextrose/ Fat Emulsion Intravenous 1,200 ml @ 50 mls/hr TPN CONT IV Last administered on 01/20/17 20 :35; Start 01/20/17 at 22:00; Stop 01/21/17 at 21:59; Status DC Sodium Chloride 1,000 ml @ 1,000 mls/hr Q1H PRN IV hypotension; Start 01/21/17 at 08:06; Stop 01/21/17 at 14:09; Status DC Sodium Chloride 1,000 ml @ 400 mls/hr Q2H30M PRN IV PATENCY; Start 01/21/17 at 08:06; Stop 01/21/17 at 20:05; Status DC Info (PHARMACY MONITORING -- do not chart) 1 each PRN DAILY PRN MC SEE COMMENTS ; Start 01/21/17 at 08:15; Status UNV Info (PHARMACY MONITORING -- do not chart) 1 each PRN DAILY PRN MC SEE COMMENTS ; Start 01/21/17 at 08:15; Status UNV Digoxin (Lanoxin) 250 mcg 1X ONCE IV Last administered on 01/21/17 12:13; Start 01/21/17 at 12:00; Stop 01/21/17 at 12:01; Status DC Sodium Chloride 120 meq/Potassium Chloride 20 meq/ Magnesium Sulfate 10 meq/ Calcium Gluconate 10 meq/ Multivitamins 10 ml/Chromium/ Copper/Manganese/ Seleni /Zn 1 ml/ Total Parenteral Nutrition/Amino Acids/Dextrose/ Fat Emulsion Intravenous 1,200 ml @ 50 mls/hr TPN CONT IV Last administered on 01/21/17 22 :12; Start 01/21/17 at 22:00; Stop 01/22/17 at 21:59; Status DC Acetaminophen (Tylenol) 650 mg PRN Q6HRS PRN PO MILD PAIN / TEMP Last administered on 01/22/17 19:29; Start 01/21/17 at 20:45 Sodium Chloride 140 meq/Potassium Chloride 20 meq/ Magnesium Sulfate 10 meq/ Calcium Gluconate 10 meq/ Multivitamins 10 ml/Chromium/ Copper/Manganese/ Seleni /Zn 1 ml/ Total Parenteral Nutrition/Amino Acids/Dextrose/ Fat Emulsion Intravenous 1,200 ml @ 50 mls/hr TPN CONT IV Last administered on 01/22/17 21 :24; Start 01/22/17 at 22:00; Stop 01/23/17 at 21:59; Status DC Info (PHARMACY MONITORING -- do not chart) 1 each PRN DAILY PRN MC SEE COMMENTS ; Start 01/22/17 at 10:15; Stop 01/22/17 at 14:38; Status DC Albumin Human 100 ml @ 100 mls/hr 1X ONCE IV Last administered on 01/22/17 15 :19; Start 01/22/17 at 12:15; Stop 01/22/17 at 13:14; Status DC Gentamicin Sulfate 270 mg/ Sodium Chloride 106.75 ml @ 106.75 mls/hr 1X ONCE IV Last administered on 01/22/17 17:41; Start 01/22/17 at 18:00; Stop 01/22/17 at 18:59; Status DC Digoxin (Lanoxin) 250 mcg 1X ONCE IV Last administered on 01/22/17 22:32; Start 01/22/17 at 22:30; Stop 01/22/17 at 22:31; Status DC Sodium Chloride 1,000 ml @ 1,000 mls/hr Q1H PRN IV hypotension; Start 01/23/17 at 07:54; Stop 01/23/17 at 13:53; Status DC Albumin Human 200 ml @ 200 mls/hr 1X PRN PRN IV Hypotension Last administered on 01/23/17 09:23; Start 01/23/17 at 08:00; Stop 01/23/17 at 13:59; Status DC Sodium Chloride 1,000 ml @ 400 mls/hr Q2H30M PRN IV PATENCY; Start 01/23/17 at 07:54; Stop 01/23/17 at 19:53; Status DC Info (PHARMACY MONITORING -- do not chart) 1 each PRN DAILY PRN MC SEE COMMENTS ; Start 01/23/17 at 08:00; Stop 01/23/17 at 08:10; Status DC Info (PHARMACY MONITORING -- do not chart) 1 each PRN DAILY PRN MC SEE COMMENTS ; Start 01/23/17 at 08:00 Sodium Chloride 110 meq/Potassium Chloride 20 meq/ Magnesium Sulfate 10 meq/ Calcium Gluconate 10 meq/ Multivitamins 10 ml/Chromium/ Copper/Manganese/ Seleni /Zn 1 ml/ Total Parenteral Nutrition/Amino Acids/Dextrose/ Fat Emulsion Intravenous 1,200 ml @ 50 mls/hr TPN CONT IV Last administered on 01/23/17 20 :46; Start 01/23/17 at 22:00; Stop 01/24/17 at 21:59 Propafenone HCl (Rythmol) 150 mg BID PO Last administered on 01/23/17 21:26; Start 01/23/17 at 21:00 Propafenone HCl (Rythmol) 75 mg 1X ONCE PO Last administered on 01/23/17 14:11 ; Start 01/23/17 at 13:45; Stop 01/23/17 at 13:53; Status DC Warfarin Sodium (Coumadin) 5 mg 1X ONCE PO Last administered on 01/23/17 17:13 ; Start 01/23/17 at 16:00; Stop 01/23/17 at 16:01; Status DC Bisacodyl (Dulcolax Supp) [address] CONSTIPATION Last administered on 01/23/17 21:26; Start 01/23/17 at 18:30 Sodium Chloride 1,000 ml @ 1,000 mls/hr Q1H PRN IV hypotension; Start 01/24/17 at 08:39; Stop 01/24/17 at 14:38 Albumin Human 200 ml @ 200 mls/hr 1X PRN PRN IV Hypotension Last administered on 01/24/17 09:10; Start 01/24/17 at 08:45; Stop 01/24/17 at 14:44 Info (PHARMACY MONITORING -- do not chart) 1 each PRN DAILY PRN MC SEE COMMENTS ; Start 01/24/17 at 08:45 Info (PHARMACY MONITORING -- do not chart) 1 each PRN DAILY PRN MC SEE COMMENTS ; Start 01/24/17 at 08:45 Active Scripts Active Reported Ferric Citrate 210 Mg Tablet 210 Mg PO Meloxicam 7.5 Mg Tablet 1 Tab PO DAILY Atenolol 50 Mg Tablet 1 Tab PO DAILY Tylenol (Acetaminophen) 325 Mg Tablet 500 Mg PO PRN Q6HRS PRN Aspir 81 (Aspirin) 81 Mg Tablet. 1 Tab PO DAILY Fish Oil 1,000 Mg Capsule ([place]-3 Fatty Acids/Fish Oil) 1 Each Capsule 1 Each PO BID Vitamin D2 (Ergocalciferol (Vitamin D2)) 50,000 Unit Capsule 50,000 Unit PO WEEKLY Allopurinol 100 Mg Tablet 1 Tab PO DAILY Nephro-Ray Tablet (Folic Acid/Vitamin B Comp W-C) 0.8 Mg Tablet 1 Tab PO HS Gabapentin 100 Mg Capsule 100 Mg PO BID Omeprazole 20 Mg Capsule.dr 20 Mg PO DAILY Calcium Acetate 667 Mg Capsule 2,001 Mg PO TIDWMEALS Vitals/I & O Vital Sign - Last 24 Hours 01/23/17 01/23/17 01/23/17 01/23/17 10:00 11:00 12:00 12:00 Pulse 98 110 96 Resp 20 20 20 B/P (MAP) 102/54 (70) 104/78 (87) 117/47 (70) Pulse Ox 97 96 96 O2 Delivery Room Air Room Air Room Air Room Air 01/23/17 01/23/17 01/23/17 01/23/17 13:00 13:09 14:00 14:11 Temp 97.9 97.9 Pulse 98 96 94 96 Resp 20 20 B/P (MAP) 115/47 (69) 117/47 95/41 (59) 117/47 Pulse Ox 94 93 O2 Delivery Room Air Room Air 01/23/17 01/23/17 01/23/17 01/23/17 15:00 16:00 16:00 17:16 Temp 97.9 97.9 Pulse 96 86 90 Resp 20 20 20 B/P (MAP) 132/54 (80) 95/50 (65) Pulse Ox 94 94 96 O2 Delivery Room Air Room Air Room Air Room Air 01/23/17 01/23/17 01/23/17 01/23/17 18:00 19:00 20:00 20:00 Temp 97.7 97.7 Pulse 78 78 76 Resp 20 20 20 B/P (MAP) 102/50 (67) 91/34 (53) 113/48 (69) Pulse Ox 94 94 94 O2 Delivery Room Air Room Air Room Air Room Air 01/23/17 01/23/17 01/23/17 01/23/17 21:00 21:26 22:00 23:00 Pulse 78 82 73 73 Resp 20 20 20 B/P (MAP) 95/40 (58) 95/40 97/48 (64) 116/50 (72) Pulse Ox 94 94 94 O2 Delivery Room Air Room Air Room Air 01/24/17 01/24/17 01/24/17 01/24/17 00:00 00:01 01:00 02:00 Temp 97.6 97.6 Pulse 68 84 64 Resp 20 20 20 B/P (MAP) 97/47 (64) 107/38 (61) 129/45 (73) Pulse Ox 92 95 97 O2 Delivery Room Air Room Air Room Air Room Air 01/24/17 01/24/17 01/24/17 01/24/17 03:00 04:00 04:00 05:00 Pulse 72 66 66 Resp 20 20 20 B/P (MAP) 115/55 (75) 99/45 (63) 143/54 (83) Pulse Ox 94 92 92 O2 Delivery Room Air Room Air Room Air Room Air 01/24/17 01/24/17 01/24/17 01/24/17 06:00 07:00 08:00 08:00 Temp 98.8 98.8 Pulse 76 68 60 Resp 20 18 18 B/P (MAP) 120/49 (72) 147/48 (81) 137/54 (81) Pulse Ox 92 93 93 O2 Delivery Room Air Room Air Room Air Room Air 01/24/17 09:00 Pulse 79 Resp 21 B/P (MAP) 99/42 (61) Pulse Ox 97 O2 Delivery Room Air RADHA WOODRUFF MD Jan 24, 2017 09:31
[2017-01-24] MEDS: CALCIUM ACETATE 667 MG CAPSULE PO SCH ×3 (09:38→17:00)
[2017-01-24] MEDS: GABAPENTIN 100 MG CAPSULE. PO SCH (09:39)
[2017-01-24] MEDS: PROPAFENONE 150 MG TABLET. PO SCH (09:39)
[2017-01-24] MEDS: ALLOPURINOL 100 MG TABLET. PO SCH (09:39)
[2017-01-24] MEDS: PANTOPRAZOLE 40 MG TABLET.DR. PO SCH (09:39)
[2017-01-24] MEDS: ASPIRIN ENTERIC COATED 81 MG TABLET.DR. PO SCH (09:39)
[2017-01-24] MEDS: OMEGA-3 FATTY ACIDS/FISH OIL 1,000 MG CAPSULE. PO SCH (09:39)
[2017-01-24] MEDS: MELOXICAM 7.5 MG TABLET PO SCH (09:41)
--- NOTE | 2017-01-24 10:10 | PDOC ---
Dialysis Progress Note Dialysis Note Dialysis Note Seen on Hemodialysis, tolerating treatment Okay for now Vitals on Hemodialysis: 109/45 (after 25gms of alb) 84 afeb General Appearance: Ill appearing Awake: Alert Oriented x 1-2 Neck: No JVD or JVP Chest: CTA Silviano Heart: S1 S2; + Murmur Abdomen - Soft NTND - obese Extremities - + Edema ESRD: Dialysis as below F 180 NR 3.5 Hrs 2 K (from here on) 2.5 Ca 140 Na 35 HC03 Qb 350 + Qd 500+ Heparin 0 Units Uf 2-3 Kgs or to dry weight as tolerated May give 25-50 gms of 25% Albumin if needed to maintain Hemodynamic stability Treatment plan reviewed and discussed with cake icer Vitals Vital Signs Vital Signs Date Time Temp Pulse Resp B/P (MAP) Pulse Ox O2 Delivery O2 Flow Rate FiO2 01/24/17 10:00 90 19 110/50 (70) 98 Room Air 01/24/17 08:00 98.8 98.8 01/21/17 07:00 2.0 Labs Last Labs Laboratory Tests Test 01/23/17 05:32 01/23/17 08:45 01/24/17 05:45 01/24/17 07:15 Sodium Level 136 mmol/L (136-145) 137 mmol/L (136-145) Potassium Level 4.8 mmol/L (3.5-5.1) 4.6 mmol/L (3.5-5.1) Chloride Level 98 mmol/L (98-107) 99 mmol/L (98-107) Carbon Dioxide Level 28 mmol/L (21-32) 28 mmol/L (21-32) Anion Gap 10 (6-14) 10 (6-14) Blood Urea Nitrogen 25 mg/dL (7-20) 26 mg/dL (7-20) Creatinine 3.2 mg/dL (0.6-1.0) 2.9 mg/dL (0.6-1.0) Estimated GFR (Cockcroft-Gault) 14.2 15.9 Glucose Level 163 mg/dL (70-99) 188 mg/dL (70-99) Calcium Level 9.0 mg/dL (8.5-10.1) 9.3 mg/dL (8.5-10.1) Phosphorus Level 3.3 mg/dL (2.6-4.7) 2.9 mg/dL (2.6-4.7) Magnesium Level 2.2 mg/dL (1.8-2.4) 2.3 mg/dL (1.8-2.4) Prothrombin Time 15.0 SEC (11.7-14.0) 16.2 SEC (11.7-14.0) Prothromb Time International Ratio 1.3 (0.8-1.1) 1.4 (0.8-1.1) Heparin Anti-Xa Act, Unfractionated < 0.10 IU/mL (0.30-0.70) Laboratory Tests Test 01/24/17 05:45 01/24/17 07:15 Sodium Level 137 mmol/L (136-145) Potassium Level 4.6 mmol/L (3.5-5.1) Chloride Level 99 mmol/L (98-107) Carbon Dioxide Level 28 mmol/L (21-32) Anion Gap 10 (6-14) Blood Urea Nitrogen 26 mg/dL (7-20) Creatinine 2.9 mg/dL (0.6-1.0) Estimated GFR (Cockcroft-Gault) 15.9 Glucose Level 188 mg/dL (70-99) Calcium Level 9.3 mg/dL (8.5-10.1) Phosphorus Level 2.9 mg/dL (2.6-4.7) Magnesium Level 2.3 mg/dL (1.8-2.4) Prothrombin Time 16.2 SEC (11.7-14.0) Prothromb Time International Ratio 1.4 (0.8-1.1) Heparin Anti-Xa Act, Unfractionated < 0.10 IU/mL (0.30-0.70) Assessment Assessment Problems Medical Problems: (1) Non-STEMI (non-ST elevated myocardial infarction) Status: Acute Problems: Plan Plan of Care Problems Medical Problems: (1) Non-STEMI (non-ST elevated myocardial infarction) Status: Acute FLORESITA ACOSTA MD Jan 24, 2017 10:10
--- NOTE | 2017-01-24 12:53 | PDOC ---
PROGRESS NOTES Subjective Subjective Patient seen this morning after receiving dialysis, she c/o being very weak. Patient has been eating more, but her appetite is still poor. Objective Objective Vital Signs Date Time Temp Pulse Resp B/P (MAP) Pulse Ox O2 Delivery O2 Flow Rate FiO2 01/24/17 12:00 Room Air 01/24/17 12:00 98.7 68 21 103/54 (70) 96 98.7 01/21/17 07:00 2.0 Physical Exam Physical Exam No significant changes to exam. Assessment Assessment Problems Medical Problems: (1) Non-STEMI (non-ST elevated myocardial infarction) Status: Acute Plan Plan of Care Hypotension: Improved - Patient has been off vasopressors; blood pressure stable Atrial fibrillation: Improved - Continue Rythmol 150mg BID - Warfarin started on 01/20; INR 1.4 today Patient is not medically stable for cardiac surgery. Recommend continued IV ABX treatment for at least 4 weeks Patients has continued weakness, recommend continuing TPN for now and monitor patient's appetite. Okay to d/c to [facility] Comment Review of Relevant I have reviewed the following items michelle (where applicable) has been applied. Labs Laboratory Tests Test 01/23/17 05:32 01/23/17 08:45 01/24/17 05:45 01/24/17 07:15 Sodium Level 136 mmol/L (136-145) 137 mmol/L (136-145) Potassium Level 4.8 mmol/L (3.5-5.1) 4.6 mmol/L (3.5-5.1) Chloride Level 98 mmol/L (98-107) 99 mmol/L (98-107) Carbon Dioxide Level 28 mmol/L (21-32) 28 mmol/L (21-32) Anion Gap 10 (6-14) 10 (6-14) Blood Urea Nitrogen 25 mg/dL (7-20) 26 mg/dL (7-20) Creatinine 3.2 mg/dL (0.6-1.0) 2.9 mg/dL (0.6-1.0) Estimated GFR (Cockcroft-Gault) 14.2 15.9 Glucose Level 163 mg/dL (70-99) 188 mg/dL (70-99) Calcium Level 9.0 mg/dL (8.5-10.1) 9.3 mg/dL (8.5-10.1) Phosphorus Level 3.3 mg/dL (2.6-4.7) 2.9 mg/dL (2.6-4.7) Magnesium Level 2.2 mg/dL (1.8-2.4) 2.3 mg/dL (1.8-2.4) Prothrombin Time 15.0 SEC (11.7-14.0) 16.2 SEC (11.7-14.0) Prothromb Time International Ratio 1.3 (0.8-1.1) 1.4 (0.8-1.1) Heparin Anti-Xa Act, Unfractionated < 0.10 IU/mL (0.30-0.70) Laboratory Tests Test 01/24/17 05:45 01/24/17 07:15 Sodium Level 137 mmol/L (136-145) Potassium Level 4.6 mmol/L (3.5-5.1) Chloride Level 99 mmol/L (98-107) Carbon Dioxide Level 28 mmol/L (21-32) Anion Gap 10 (6-14) Blood Urea Nitrogen 26 mg/dL (7-20) Creatinine 2.9 mg/dL (0.6-1.0) Estimated GFR (Cockcroft-Gault) 15.9 Glucose Level 188 mg/dL (70-99) Calcium Level 9.3 mg/dL (8.5-10.1) Phosphorus Level 2.9 mg/dL (2.6-4.7) Magnesium Level 2.3 mg/dL (1.8-2.4) Prothrombin Time 16.2 SEC (11.7-14.0) Prothromb Time International Ratio 1.4 (0.8-1.1) Heparin Anti-Xa Act, Unfractionated < 0.10 IU/mL (0.30-0.70) Microbiology 01/16/17 Blood Culture - Final, Complete NO GROWTH AFTER 5 DAYS Medications Current Medications Sodium Chloride 500 ml @ 500 mls/hr 1X ONCE IV Last administered on 06:45; Start 01/09/17 at 06:45; Stop 01/09/17 at 07:44; Status DC Diltiazem HCl (Cardizem) 10 mg 1X ONCE IVP Last administered on 01/09/17 07: 39; Start 01/09/17 at 07:30; Stop 01/09/17 at 07:31; Status DC Diltiazem HCl 125 mg/Dextrose 125 ml @ 0 mls/hr CONT PRN IV SEE I/O RECORD Last administered on 01/09/17 07:40; Start 01/09/17 at 07:30 Aspirin (Children'S Aspirin) 324 mg 1X ONCE PO Last administered on 01/09/17 08:15; Start 01/09/17 at 07:45; Stop 01/09/17 at 07:46; Status DC Darbepoetin Jerome (Aranesp) 60 mcg [id number] SQ Last administered on 01/23/17 21: 26; Start 01/09/17 at 21:00 Albumin Human 500 ml @ 125 mls/hr 1X ONCE IV Last administered on 01/09/17 13:02; Start 01/09/17 at 13:00; Stop 01/09/17 at 16:59; Status DC Albumin Human 500 ml @ 125 mls/hr 1X ONCE IV Last administered on 01/09/17 16:35; Start 01/09/17 at 16:00; Stop 01/09/17 at 19:59; Status DC Digoxin (Lanoxin) 500 mcg 1X ONCE IV Last administered on 01/09/17 13:03; Start 01/09/17 at 13:00; Stop 01/09/17 at 13:01; Status DC Sodium Chloride 1,000 ml @ 1,000 mls/hr Q1H PRN IV hypotension; Start 01/09/17 at 16:31; Stop 01/09/17 at 22:30; Status DC Sodium Chloride 1,000 ml @ 400 mls/hr Q2H30M PRN IV PATENCY; Start 01/09/17 at 16:31; Stop 01/10/17 at 04:30; Status DC Info (PHARMACY MONITORING -- do not chart) 1 each PRN DAILY PRN MC SEE COMMENTS ; Start 01/09/17 at 16:45; Status Cancel Fentanyl Citrate (Fentanyl 2ml Vial) 50 mcg PRN Q4HRS PRN IV PAIN Last administered on 01/21/17 16:55; Start 01/09/17 at 18:00 Oxycodone/ Acetaminophen (Percocet 5/325) 1 tab PRN Q4HRS PRN PO PAIN Last administered on 01/20/17 20:34; Start 01/09/17 at 18:00 Fentanyl Citrate (Fentanyl 2ml Vial) 50 mcg 1X ONCE IM ; Start 01/09/17 at 20: 00; Stop 01/09/17 at 20:01; Status Cancel Fentanyl Citrate (Fentanyl 2ml Vial) 50 mcg 1X ONCE IV Last administered on 19:57; Start 01/09/17 at 20:00; Stop 01/09/17 at 20:01; Status DC Allopurinol (Zyloprim) 100 mg DAILY PO Last administered on 01/24/17 09:39; Start 01/10/17 at 14:30 Aspirin (Ecotrin) 81 mg DAILY PO Last administered on 01/24/17 09:39; Start at 14:30 Atenolol (Tenormin) 50 mg DAILY PO Last administered on 01/12/17 09:09; Start 01/10/17 at 14:30; Stop 01/12/17 at 14:50; Status DC Calcium Acetate (Phoslo) 2,001 mg TIDWMEALS PO Last administered on 01/24/17 09 :38; Start 01/10/17 at 17:00 Vitamin B Complex/ Vitamin C (Tsering-Ray) 1 tab HS PO Last administered on 21:25; Start 01/10/17 at 21:00 Gabapentin (Neurontin) 100 mg BID PO Last administered on 01/24/17 09:39; Start 01/10/17 at 14:30 Meloxicam (Mobic) 7.5 mg DAILY PO Last administered on 01/24/17 09:41; Start at 14:30 Fish Oil (Fish Oil) 1,000 mg DAILY PO Last administered on 01/24/17 09:39; Start 01/11/17 at 09:00 Pantoprazole Sodium (Protonix) 40 mg DAILYAC PO Last administered on 01/24/17 09:39; Start 01/10/17 at 14:30 Digoxin (Lanoxin) 500 mcg 1X ONCE IV Last administered on 01/10/17 15:23; Start 01/10/17 at 15:30; Stop 01/10/17 at 15:31; Status DC Albumin Human 500 ml @ 125 mls/hr 1X ONCE IV Last administered on 01/10/17 15:22; Start 01/10/17 at 15:15; Stop 01/10/17 at 19:14; Status DC Lidocaine HCl (Xylocaine-Mpf 1% Vial) 2 ml STK-MED ONCE .ROUTE ; Start 01/11/17 at 08:47; Stop 01/11/17 at 08:48; Status DC Sodium Chloride 1,000 ml @ 1,000 mls/hr Q1H PRN IV hypotension; Start 01/11/17 at 08:55; Stop 01/11/17 at 14:54; Status DC Albumin Human 200 ml @ 200 mls/hr 1X PRN PRN IV Hypotension; Start 01/11/17 at 09:00; Stop 01/11/17 at 14:59; Status DC Acetaminophen (Tylenol) 500 mg 1X PRN PRN PO MILD PAIN / TEMP; Start 01/11/17 at 09:00; Stop 01/12/17 at 08:59; Status DC Diphenhydramine HCl (Benadryl) 25 mg 1X PRN PRN IV ITCHING Last administered on 01/11/17 13:30; Start 01/11/17 at 09:00; Stop 01/12/17 at 08:59; Status DC Info (PHARMACY MONITORING -- do not chart) 1 each PRN DAILY PRN MC SEE COMMENTS ; Start 01/11/17 at 09:00; Stop 01/18/17 at 08:14; Status DC Lidocaine HCl (Xylocaine-Mpf 1% Vial) 2 ml 1X ONCE INJ Last administered on 10:01; Start 01/11/17 at 09:00; Stop 01/11/17 at 09:02; Status DC Albumin Human 500 ml @ 125 mls/hr 1X ONCE IV Last administered on 01/11/17 11:50; Start 01/11/17 at 11:45; Stop 01/11/17 at 15:44; Status DC Nitroglycerin (Nitrostat) 0.4 mg STK-MED ONCE SL ; Start 01/11/17 at 12:07; Stop 01/11/17 at 12:08; Status DC Nitroglycerin (Nitrostat) 0.4 mg PRN Q5MIN PRN SL CHEST PAIN Last administered on 01/11/17 12:35; Start 01/11/17 at 12:15 Morphine Sulfate 3 mg 1X ONCE IV Last administered on 01/11/17 12:15; Start 01/11/17 at 12:15; Stop 01/11/17 at 12:16; Status DC Digoxin (Lanoxin) 250 mcg 1X ONCE IV Last administered on 01/11/17 12:34; Start 01/11/17 at 12:30; Stop 01/11/17 at 12:31; Status DC Fentanyl Citrate (Fentanyl 5ml Vial) 250 mcg STK-MED ONCE .ROUTE ; Start at 13:07; Stop 01/11/17 at 13:08; Status DC Midazolam HCl (Versed) 5 mg STK-MED ONCE .ROUTE ; Start 01/11/17 at 13:07; Stop 01/11/17 at 13:08; Status DC Iohexol (Omnipaque 350 Mg/ml) 100 ml STK-MED ONCE .ROUTE ; Start 01/11/17 at 13: 08; Stop 01/11/17 at 13:09; Status DC Heparin Sodium/ Sodium Chloride 500 ml @ As Directed STK-MED ONCE .ROUTE ; Start 01/11/17 at 13:09; Stop 01/11/17 at 13:10; Status DC Lidocaine HCl 20 ml STK-MED ONCE .ROUTE ; Start 01/11/17 at 13:09; Stop at 13:10; Status DC Heparin Sodium/ Sodium Chloride 1,000 unit 1X ONCE IART Last administered on 13:50; Start 01/11/17 at 13:45; Stop 01/11/17 at 13:46; Status DC Midazolam HCl (Versed) 1 mg 1X ONCE IV Last administered on 01/11/17 13:51; Start 01/11/17 at 13:45; Stop 01/11/17 at 13:46; Status DC Fentanyl Citrate (Fentanyl 5ml Vial) 50 mcg 1X ONCE IV Last administered on 13:51; Start 01/11/17 at 13:45; Stop 01/11/17 at 13:46; Status DC Iohexol (Omnipaque 350 Mg/ml) 81 ml 1X ONCE IART Last administered on 13:51; Start 01/11/17 at 13:45; Stop 01/11/17 at 13:46; Status DC Lidocaine HCl 12 ml 1X ONCE IJ Last administered on 01/11/17 13:50; Start at 13:45; Stop 01/11/17 at 13:46; Status DC Info (Do NOT chart on this entry -- for MONITORING) 1 each PRN DAILY PRN MC SEE COMMENTS; Start 01/11/17 at 14:00; Stop 01/13/17 at 13:59; Status DC Albumin Human 250 ml @ 62.5 mls/hr 1X ONCE IV Last administered on 01/11/17 14:15; Start 01/11/17 at 14:15; Stop 01/11/17 at 18:14; Status DC Digoxin (Lanoxin) 250 mcg 1X ONCE IV Last administered on 01/11/17 19:02; Start 01/11/17 at 18:45; Stop 01/11/17 at 18:46; Status DC Ondansetron HCl (Zofran) 8 mg PRN Q6HRS PRN IV NAUSEA/VOMITING Last administered on 01/15/17 04:04; Start 01/11/17 at 18:45 Enoxaparin Sodium (Lovenox 100mg Syringe) 90 mg Q24H SQ Last administered on 21:09; Start 01/11/17 at 20:00; Stop 01/15/17 at 11:08; Status DC Propafenone HCl (Rythmol) 75 mg BID PO Last administered on 01/23/17 13:09; Start 01/12/17 at 21:00; Stop 01/23/17 at 13:49; Status DC Norepinephrine Bitartrate 250 ml @ 0 mls/hr CONT PRN IV SEE I/O RECORD Last administered on 01/17/17 23:13; Start 01/12/17 at 15:45 Info (Anti-Coagulation Monitoring By Pharmacy) 1 each PRN DAILY PRN MC SEE COMMENTS Last administered on 01/23/17 12:35; Start 01/13/17 at 09:00 Magnesium Sulfate/ Dextrose 50 ml @ 25 mls/hr PRN DAILY PRN IV for Mag < 1.7 on am labs; Start 01/13/17 at 10:45 Sodium Chloride 1,000 ml @ 80 mls/hr [id number] IV Last administered on 10:50; Start 01/13/17 at 10:45; Stop 01/14/17 at 19:07; Status DC Sodium Chloride 500 ml @ 0 mls/hr QID PRN IV for MAP < 65 Last administered on 01/14/17 01:15; Start 01/13/17 at 10:45 Sodium Chloride 1,000 ml @ 1,000 mls/hr Q1H PRN IV hypotension; Start 01/14/17 at 09:11; Stop 01/14/17 at 15:10; Status DC Info (PHARMACY MONITORING -- do not chart) 1 each PRN DAILY PRN MC SEE COMMENTS ; Start 01/14/17 at 09:15; Status UNV Piperacillin Sod/ Tazobactam Sod 2.25 gm/Sodium Chloride 50 ml @ 100 mls/hr Q8HRS IV Last administered on 01/17/17 05:01; Start 01/14/17 at 12:30; Stop 01/17/17 at 14:30; Status DC Micafungin Sodium 100 mg/Dextrose 100 ml @ 100 mls/hr Q24H IV Last administered on 01/16/17 13:42; Start 01/14/17 at 13:00; Stop 01/17/17 at 14:30 ; Status DC Vancomycin HCl (Vanco Per Pharmacy) 1 each PRN DAILY PRN MC SEE COMMENTS Last administered on 01/17/17 11:01; Start 01/15/17 at 07:15; Stop 01/17/17 at 14:30; Status DC Vancomycin HCl 2 gm/Sodium Chloride 500 ml @ 250 mls/hr 1X ONCE IV Last administered on 01/15/17 07:55; Start 01/15/17 at 08:00; Stop 01/15/17 at 09:59 ; Status DC Metronidazole 100 ml @ 100 mls/hr Q8H IV Last administered on 01/16/17 00:03 ; Start 01/15/17 at 08:00; Stop 01/16/17 at 08:02; Status DC Iohexol (Omnipaque 300 Mg/ml) 75 ml 1X ONCE IV ; Start 01/15/17 at 08:00; Stop 01/15/17 at 08:01; Status DC Lidocaine/Sodium Bicarbonate (Buffered Lidocaine 1%) 3 ml 1X ONCE IJ Last administered on 01/15/17 09:00; Start 01/15/17 at 08:30; Stop 01/15/17 at 08:32 ; Status DC Heparin Sodium/ Sodium Chloride 60 unit 1X ONCE IV Last administered on 09:01; Start 01/15/17 at 08:30; Stop 01/15/17 at 08:32; Status DC Heparin Sodium (Porcine) (Heparin Sodium) 3,000 unit 1X ONCE IV Last administered on 01/15/17 20:21; Start 01/15/17 at 21:00; Stop 01/15/17 at 21:01 ; Status DC Heparin Sodium/ Dextrose 500 ml @ 0 mls/hr CONT PRN IV SEE I/O RECORD Last administered on 01/22/17 03:24; Start 01/15/17 at 21:00 Iohexol (Omnipaque 300 Mg/ml) 75 ml 1X ONCE IV Last administered on 01/15/17 12:15; Start 01/15/17 at 12:15; Stop 01/15/17 at 12:16; Status DC Info (Do NOT chart on this entry -- for MONITORING) 1 each PRN DAILY PRN MC SEE COMMENTS; Start 01/15/17 at 12:15; Stop 01/17/17 at 12:14; Status DC Vancomycin HCl 1 each 1X ONCE MC Last administered on 01/17/17 05:00; Start at 05:00; Stop 01/17/17 at 05:01; Status DC Info (PHARMACY MONITORING -- do not chart) 1 each PRN DAILY PRN MC SEE COMMENTS ; Start 01/16/17 at 07:45; Status UNV Info (PHARMACY MONITORING -- do not chart) 1 each PRN DAILY PRN MC SEE COMMENTS ; Start 01/16/17 at 07:45; Status UNV Info (PHARMACY MONITORING -- do not chart) 1 each PRN DAILY PRN MC SEE COMMENTS ; Start 01/16/17 at 07:45; Status UNV Sodium Chloride 1,000 ml @ 1,000 mls/hr Q1H PRN IV hypotension; Start 01/16/17 at 07:32; Stop 01/16/17 at 13:31; Status DC Albumin Human 200 ml @ 200 mls/hr 1X PRN PRN IV Hypotension; Start 01/16/17 at 07:45; Stop 01/16/17 at 13:44; Status DC Info (PHARMACY MONITORING -- do not chart) 1 each PRN DAILY PRN MC SEE COMMENTS ; Start 01/16/17 at 07:45; Status UNV Gentamicin Sulfate 1 each ONCE ONCE MC ; Start 01/16/17 at 08:00; Stop at 08:04; Status DC Gentamicin Sulfate 180 mg/ Sodium Chloride 104.5 ml @ 104.5 mls/ hr 1X ONCE IV Last administered on 01/16/17t 11:50; Start 01/16/17 at 09:00; Stop at 09:59; Status DC Lidocaine HCl (Xylocaine 2% Topical 5gm Tube) 1 edwardo 1X ONCE TP ; Start at 14:45; Stop 01/16/17 at 14:53; Status DC Lidocaine HCl (Viscous Lidocaine) 15 ml 1X ONCE MM ; Start 01/16/17 at 14:45; Stop 01/16/17 at 14:53; Status DC Benzocaine (Hurricaine One) 1spray 1X ONCE MM Last administered on 01/16/17t 14:45; Start 01/16/17 at 14:45; Stop 01/16/17 at 14:53; Status DC Ondansetron HCl (Zofran) 4 mg PRN Q6HRS PRN IV NAUSEA/VOMITING; Start 01/17/17 at 07:00; Stop 01/18/17 at 06:59; Status DC Fentanyl Citrate (Fentanyl 2ml Vial) 25 mcg PRN Q5MIN PRN IV MILD PAIN; Start 01/17/17 at 07:00; Stop 01/18/17 at 06:59; Status DC Fentanyl Citrate (Fentanyl 2ml Vial) 50 mcg PRN Q5MIN PRN IV MODERATE PAIN; Start 01/17/17 at 07:00; Stop 01/18/17 at 06:59; Status DC Morphine Sulfate 1 mg PRN Q10MIN PRN IV SEVERE PAIN; Start 01/17/17 at 07:00; Stop 01/18/17 at 06:59; Status DC Ringer's Solution 1,000 ml @ 30 mls/hr Q24H IV ; Start 01/17/17 at 07:00; Stop 01/17/17 at 18:59; Status DC Lidocaine HCl 2 ml PRN 1X PRN ID PRIOR TO IV START; Start 01/17/17 at 07:00; Stop 01/18/17 at 06:59; Status DC Hydromorphone HCl (Dilaudid) 0.5 mg PRN Q10MIN PRN IV SEV PAIN, Second choice; Start 01/17/17 at 07:00; Stop 01/18/17 at 06:59; Status DC Prochlorperazine Edisylate (Compazine) 5 mg PACU PRN PRN IV NAUSEA, MRX1; Start 01/17/17 at 07:00; Stop 01/18/17 at 06:59; Status DC Propofol 20 ml @ As Directed STK-MED ONCE IV ; Start 01/17/17 at 10:24; Stop 01/17 at 10:25; Status DC Phenylephrine HCl 1 mg STK-MED ONCE IV ; Start 01/17/17 at 10:24; Stop 01/17/17 at 10:25; Status DC Vancomycin HCl 500 mg/Sodium Chloride 100 ml @ 100 mls/hr QTUTHSA IV ; Start at 16:00; Stop 01/18/17 at 16:00; Status DC Ampicillin Sodium 2 gm/Sodium Chloride 100 ml @ 200 mls/hr Q8HRS IV Last administered on 01/24/17 05:40; Start 01/17/17 at 15:00 Gentamicin Sulfate 270 mg/ Sodium Chloride 106.75 ml @ 106.75 mls/hr Q24H IV ; Start 01/17/17 at 14:15; Status UNV Info 1 each PRN DAILY PRN MC SEE COMMENTS Last administered on 01/23/17 12:16; Start 01/17/17 at 21:30 Amino Acids/ Glycerin/ Electrolytes 1,000 ml @ 50 mls/hr Q20H IV Last administered on 01/17/17 21:46; Start 01/17/17 at 21:30; Stop 01/18/17 at 21:59; Status DC Sodium Chloride 1,000 ml @ 1,000 mls/hr Q1H PRN IV hypotension; Start 01/18/17 at 08:05; Stop 01/18/17 at 14:04; Status DC Sodium Chloride 1,000 ml @ 400 mls/hr Q2H30M PRN IV PATENCY; Start 01/18/17 at 08:05; Stop 01/18/17 at 20:04; Status DC Info (PHARMACY MONITORING -- do not chart) 1 each PRN DAILY PRN MC SEE COMMENTS ; Start 01/18/17 at 08:15; Status Cancel Info (PHARMACY MONITORING -- do not chart) 1 each PRN DAILY PRN MC SEE COMMENTS ; Start 01/18/17 at 08:15; Stop 01/18/17 at 08:15; Status DC Sodium Chloride 90 meq/Potassium Chloride 50 meq/ Potassium Phosphate 13.6 mmol/ Magnesium Sulfate 10 meq/ Calcium Gluconate 10 meq/ Multivitamins 10 ml/Chromium / Copper/Manganese/ Seleni/Zn 1 ml/ Total Parenteral Nutrition/Amino Acids/ Dextrose/ Fat Emulsion Intravenous 1,512 ml @ 63 mls/hr TPN CONT IV Last administered on 01/18/17 20:59; Start 01/18/17 at 22:00; Stop 01/19/17 at 21:59; Status DC Gentamicin Sulfate 270 mg/ Sodium Chloride 106.75 ml @ 106.75 mls/hr 1X ONCE IV Last administered on 01/18/17 16:51; Start 01/18/17 at 16:00; Stop 01/18/17 at 16:59; Status DC Sodium Chloride 90 meq/Potassium Chloride 50 meq/ Potassium Phosphate 13.6 mmol/ Magnesium Sulfate 10 meq/ Calcium Gluconate 10 meq/ Multivitamins 10 ml/Chromium / Copper/Manganese/ Seleni/Zn 1 ml/ Total Parenteral Nutrition/Amino Acids/ Dextrose/ Fat Emulsion Intravenous 1,320 ml @ 55 mls/hr TPN CONT IV Last administered on 01/19/17 21:18; Start 01/19/17 at 22:00; Stop 01/20/17 at 21:59; Status DC Warfarin Sodium (Coumadin) 5 mg 1X ONCE PO Last administered on 01/20/17 16:16 ; Start 01/20/17 at 16:00; Stop 01/20/17 at 16:01; Status DC Warfarin Sodium (Coumadin Per Physician) 1 each PRN DAILY PRN MC SEE COMMENTS Last administered on 01/23/17 12:38; Start 01/20/17 at 13:15 Sodium Chloride 90 meq/Potassium Chloride 50 meq/ Magnesium Sulfate 10 meq/ Calcium Gluconate 10 meq/ Multivitamins 10 ml/Chromium/ Copper/Manganese/ Seleni /Zn 1 ml/ Total Parenteral Nutrition/Amino Acids/Dextrose/ Fat Emulsion Intravenous 1,200 ml @ 50 mls/hr TPN CONT IV Last administered on 01/20/17 20 :35; Start 01/20/17 at 22:00; Stop 01/21/17 at 21:59; Status DC Sodium Chloride 1,000 ml @ 1,000 mls/hr Q1H PRN IV hypotension; Start 01/21/17 at 08:06; Stop 01/21/17 at 14:09; Status DC Sodium Chloride 1,000 ml @ 400 mls/hr Q2H30M PRN IV PATENCY; Start 01/21/17 at 08:06; Stop 01/21/17 at 20:05; Status DC Info (PHARMACY MONITORING -- do not chart) 1 each PRN DAILY PRN MC SEE COMMENTS ; Start 01/21/17 at 08:15; Status UNV Info (PHARMACY MONITORING -- do not chart) 1 each PRN DAILY PRN MC SEE COMMENTS ; Start 01/21/17 at 08:15; Status UNV Digoxin (Lanoxin) 250 mcg 1X ONCE IV Last administered on 01/21/17 12:13; Start 01/21/17 at 12:00; Stop 01/21/17 at 12:01; Status DC Sodium Chloride 120 meq/Potassium Chloride 20 meq/ Magnesium Sulfate 10 meq/ Calcium Gluconate 10 meq/ Multivitamins 10 ml/Chromium/ Copper/Manganese/ Seleni /Zn 1 ml/ Total Parenteral Nutrition/Amino Acids/Dextrose/ Fat Emulsion Intravenous 1,200 ml @ 50 mls/hr TPN CONT IV Last administered on 01/21/17 22 :12; Start 01/21/17 at 22:00; Stop 01/22/17 at 21:59; Status DC Acetaminophen (Tylenol) 650 mg PRN Q6HRS PRN PO MILD PAIN / TEMP Last administered on 01/22/17 19:29; Start 01/21/17 at 20:45 Sodium Chloride 140 meq/Potassium Chloride 20 meq/ Magnesium Sulfate 10 meq/ Calcium Gluconate 10 meq/ Multivitamins 10 ml/Chromium/ Copper/Manganese/ Seleni /Zn 1 ml/ Total Parenteral Nutrition/Amino Acids/Dextrose/ Fat Emulsion Intravenous 1,200 ml @ 50 mls/hr TPN CONT IV Last administered on 01/22/17 21 :24; Start 01/22/17 at 22:00; Stop 01/23/17 at 21:59; Status DC Info (PHARMACY MONITORING -- do not chart) 1 each PRN DAILY PRN MC SEE COMMENTS ; Start 01/22/17 at 10:15; Stop 01/22/17 at 14:38; Status DC Albumin Human 100 ml @ 100 mls/hr 1X ONCE IV Last administered on 01/22/17 15 :19; Start 01/22/17 at 12:15; Stop 01/22/17 at 13:14; Status DC Gentamicin Sulfate 270 mg/ Sodium Chloride 106.75 ml @ 106.75 mls/hr 1X ONCE IV Last administered on 01/22/17 17:41; Start 01/22/17 at 18:00; Stop 01/22/17 at 18:59; Status DC Digoxin (Lanoxin) 250 mcg 1X ONCE IV Last administered on 01/22/17 22:32; Start 01/22/17 at 22:30; Stop 01/22/17 at 22:31; Status DC Sodium Chloride 1,000 ml @ 1,000 mls/hr Q1H PRN IV hypotension; Start 01/23/17 at 07:54; Stop 01/23/17 at 13:53; Status DC Albumin Human 200 ml @ 200 mls/hr 1X PRN PRN IV Hypotension Last administered on 01/23/17 09:23; Start 01/23/17 at 08:00; Stop 01/23/17 at 13:59; Status DC Sodium Chloride 1,000 ml @ 400 mls/hr Q2H30M PRN IV PATENCY; Start 01/23/17 at 07:54; Stop 01/23/17 at 19:53; Status DC Info (PHARMACY MONITORING -- do not chart) 1 each PRN DAILY PRN MC SEE COMMENTS ; Start 01/23/17 at 08:00; Stop 01/23/17 at 08:10; Status DC Info (PHARMACY MONITORING -- do not chart) 1 each PRN DAILY PRN MC SEE COMMENTS ; Start 01/23/17 at 08:00 Sodium Chloride 110 meq/Potassium Chloride 20 meq/ Magnesium Sulfate 10 meq/ Calcium Gluconate 10 meq/ Multivitamins 10 ml/Chromium/ Copper/Manganese/ Seleni /Zn 1 ml/ Total Parenteral Nutrition/Amino Acids/Dextrose/ Fat Emulsion Intravenous 1,200 ml @ 50 mls/hr TPN CONT IV Last administered on 01/23/17 20 :46; Start 01/23/17 at 22:00; Stop 01/24/17 at 21:59 Propafenone HCl (Rythmol) 150 mg BID PO Last administered on 01/24/17 09:39; Start 01/23/17 at 21:00 Propafenone HCl (Rythmol) 75 mg 1X ONCE PO Last administered on 01/23/17 14:11 ; Start 01/23/17 at 13:45; Stop 01/23/17 at 13:53; Status DC Warfarin Sodium (Coumadin) 5 mg 1X ONCE PO Last administered on 01/23/17 17:13 ; Start 01/23/17 at 16:00; Stop 01/23/17 at 16:01; Status DC Bisacodyl (Dulcolax Supp) 10 mg PRN DAILY PRN [place] CONSTIPATION Last administered on 01/23/17 21:26; Start 01/23/17 at 18:30 Sodium Chloride 1,000 ml @ 1,000 mls/hr Q1H PRN IV hypotension; Start 01/24/17 at 08:39; Stop 01/24/17 at 14:38 Albumin Human 200 ml @ 200 mls/hr 1X PRN PRN IV Hypotension Last administered on 01/24/17 09:10; Start 01/24/17 at 08:45; Stop 01/24/17 at 14:44 Info (PHARMACY MONITORING -- do not chart) 1 each PRN DAILY PRN MC SEE COMMENTS ; Start 01/24/17 at 08:45 Info (PHARMACY MONITORING -- do not chart) 1 each PRN DAILY PRN MC SEE COMMENTS ; Start 01/24/17 at 08:45 Active Scripts Active Reported Ferric Citrate 210 Mg Tablet 210 Mg PO Meloxicam 7.5 Mg Tablet 1 Tab PO DAILY Atenolol 50 Mg Tablet 1 Tab PO DAILY Tylenol (Acetaminophen) 325 Mg Tablet 500 Mg PO PRN Q6HRS PRN Aspir 81 (Aspirin) 81 Mg Tablet.dr 1 Tab PO DAILY Fish Oil 1,000 Mg Capsule (Orchard-3 Fatty Acids/Fish Oil) 1 Each Capsule 1 Each PO BID Vitamin D2 (Ergocalciferol (Vitamin D2)) 50,000 Unit Capsule 50,000 Unit PO WEEKLY Allopurinol 100 Mg Tablet 1 Tab PO DAILY Nephro-Ray Tablet (Folic Acid/Vitamin B Comp W-C) 0.8 Mg Tablet 1 Tab PO HS Gabapentin 100 Mg Capsule 100 Mg PO BID Omeprazole 20 Mg Capsule.dr 20 Mg PO DAILY Calcium Acetate 667 Mg Capsule 2,001 Mg PO TIDWMEALS Vitals/I & O Vital Sign - Last 24 Hours 01/23/17 01/23/17 01/23/17 01/23/17 13:00 13:09 14:00 14:11 Temp 97.9 97.9 Pulse 98 96 94 96 Resp 20 20 B/P (MAP) 115/47 (69) 117/47 95/41 (59) 117/47 Pulse Ox 94 93 O2 Delivery Room Air Room Air 01/23/17 01/23/17 01/23/17 01/23/17 15:00 16:00 16:00 17:16 Temp 97.9 97.9 Pulse 96 86 90 Resp 20 20 20 B/P (MAP) 132/54 (80) 95/50 (65) Pulse Ox 94 94 96 O2 Delivery Room Air Room Air Room Air Room Air 01/23/17 01/23/17 01/23/17 01/23/17 18:00 19:00 20:00 20:00 Temp 97.7 97.7 Pulse 78 78 76 Resp 20 20 20 B/P (MAP) 102/50 (67) 91/34 (53) 113/48 (69) Pulse Ox 94 94 94 O2 Delivery Room Air Room Air Room Air Room Air 01/23/17 01/23/17 01/23/17 01/23/17 21:00 21:26 22:00 23:00 Pulse 78 82 73 73 Resp 20 20 20 B/P (MAP) 95/40 (58) 95/40 97/48 (64) 116/50 (72) Pulse Ox 94 94 94 O2 Delivery Room Air Room Air Room Air 01/24/17 01/24/17 01/24/17 01/24/17 00:00 00:01 01:00 02:00 Temp 97.6 97.6 Pulse 68 84 64 Resp 20 20 20 B/P (MAP) 97/47 (64) 107/38 (61) 129/45 (73) Pulse Ox 92 95 97 O2 Delivery Room Air Room Air Room Air Room Air 901/24/17 01/24/17 01/24/17 03:00 04:00 04:00 05:00 Pulse 72 66 66 Resp 20 20 20 B/P (MAP) 115/55 (75) 99/45 (63) 143/54 (83) Pulse Ox 94 92 92 O2 Delivery Room Air Room Air Room Air Room Air 01/24/17 01/24/17 01/24/17 01/24/17 06:00 07:00 08:00 08:00 Temp 98.8 98.8 Pulse 76 68 60 Resp 20 18 18 B/P (MAP) 120/49 (72) 147/48 (81) 137/54 (81) Pulse Ox 92 93 93 O2 Delivery Room Air Room Air Room Air Room Air 01/24/17 01/24/17 01/24/17 01/24/17 09:00 09:39 10:00 11:00 Pulse 79 73 90 80 Resp 21 19 B/P (MAP) 99/42 (61) 114/54 110/50 (70) 109/53 (71) Pulse Ox 97 98 98 O2 Delivery Room Air Room Air Room Air 01/24/17 01/24/17 12:00 12:00 Temp 98.7 98.7 Pulse 68 Resp 21 B/P (MAP) 103/54 (70) Pulse Ox 96 O2 Delivery Room Air Room Air INEZ GRADY MD Jan 24, 2017 12:53
[2017-01-24] MEDS: TPN PER PHARMACY MC PRN (13:47)
--- NOTE | 2017-01-24 15:50 | PDOC3 ---
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 She has hypertension and previous episodes of atrial fibrillation. The patient came in and was found to be in A. fib with RVR and to have mild elevation of the troponin. She was admitted and treated medically and was doing well and she was about to be discharged when the patient developed acute onset of chest pain. In view of that discharge was counseled and after discussing the situation it was decided to take the patient to the catheter lab and a heart catheterization. We found that there was no significant coronary artery disease. The patient was however febrile and hypotensive and I felt that she was septic. She had been having her dialysis all along since admission. The patient's condition deteriorated and she required to be started on levo fed to be able to maintain a blood pressure and to be given IV fluids. Infectious disease was then consulted and they started the patient on multiple antibiotics. The blood cultures that were done were positive for enterococcus. Infectious disease adjusted. Antibiotics to the sensitivities and an echocardiogram was done that was suspicious for vegetations therefore a MARY JANE was done that showed a large vegetation on the aortic valve and a very small one on the mitral valve. The patient's condition was rather poor but gradually she began to improve after she was on the antibiotics for a period of days. At this point we have been able to DC the vasopressors and she is maintaining a blood pressure. The patient needs to have audible valve surgery for an aortic valve replacement as well as a mitral valve replacement but due to her current condition I don't feel that she would be able to survive the valve replacement. Therefore it was decided to send the patient to [facility] to have physical therapy as well as medical therapy with IV antibiotics and after she has completed 4 weeks of IV antibiotics then we would like to bring her back to repeat the MARY JANE and then at that point depending on her condition and the results of the MARY JANE make a decision with regards to the timing of the valve replacement surgery. All of this has been discussed with the patient and her family. They are in agreement with this procedure. Please see the MRAD for the medications list. [facility]. CONDITION AT DISCHARGE: Improved, Stable Scheduled Allopurinol (Allopurinol), 1 TAB PO DAILY, (Reported) Aspirin (Aspir 81), 1 TAB PO DAILY, (Reported) Atenolol (Atenolol), 1 TAB PO DAILY, (Reported) Calcium Acetate (Calcium Acetate), 2,001 MG PO TIDWMEALS, (Reported) Ergocalciferol (Vitamin D2) (Vitamin D2), 50,000 UNIT PO WEEKLY, (Reported) Folic Acid/Vitamin B Comp W-C (Nephro-Ray Tablet), 1 TAB PO HS, (Reported) Gabapentin (Gabapentin), 100 MG PO BID, (Reported) Meloxicam (Meloxicam), 1 TAB PO DAILY, (Reported) Colbert-3 Fatty Acids/Fish Oil (Fish Oil 1,000 Mg Capsule), 1 EACH PO BID, ( Reported) Omeprazole (Omeprazole), 20 MG PO DAILY, (Reported) Scheduled PRN Acetaminophen (Tylenol), 500 MG PO PRN Q6HRS PRN for PAIN, (Reported) Miscellaneous Medications Ferric Citrate (Ferric Citrate), 210 MG PO, (Reported) Time Spent Total time spent with patient [] minutes for coordination of care, counseling, and education. INEZ GRADY MD Jan 24, 2017 15:50
--- NOTE | 2017-01-24 16:41 | PDOC2 ---
CONSULT Date of Consult Date of Consult DATE: 01/24/17 TIME: 16:34 Reason for Consult Reason for Consult: Aortic and mitral valve endocarditis Referring Physician Referring Physician: Dr Jean Identification/Chief Complaint Chief Complaint SOB Problems: Source Source: Caregiver, Chart review History of Present Illness Reason for Visit: The patient is a 72-year-old female who was admitted on January 09 with shortness of breath. She has end-stage renal failure and is on dialysis. Upon admission she was found to be in A. fib with RVR with a small troponin elevation. The coronary angiography was normal. During her hospitalization she developed fevers with hypotension requiring pressors. Blood cultures were positive for enterococcus. She went on to have a MARY JANE which showed a 2 cm vegetation on the aortic valve with mild to moderate AI and a small vegetation on the mitral valve with mild to moderate MR. Her ejection fraction was preserved. The patient remains encephalopathic and bedridden. She has thrombocytopenia. She is severely malnutrition and is currently receiving TPN. She is not receiving any enteral feeding. I was consulted for further management of her aortic and mitral valve endocarditis. Past Medical History Cardiovascular: HTN, Other Heme/Onc: Anemia NOS Rheumatologic: Gout Renal/: Chronic renal failure Endocrine: Diabetes, Hyperparathyroidism, Other Past Surgical History Past Surgical History: Pacemaker, Cholecystectomy, Hysterectomy, Other Family History Family History: No Significant Social History ALCOHOL: none Drugs: None Current Problem List Problem List Problems Medical Problems: (1) Non-STEMI (non-ST elevated myocardial infarction) Status: Acute Current Medications Current Medications Current Medications Sodium Chloride 500 ml @ 500 mls/hr 1X ONCE IV Last administered on 06:45; Start 01/09/17 at 06:45; Stop 01/09/17 at 07:44; Status DC Diltiazem HCl (Cardizem) 10 mg 1X ONCE IVP Last administered on 01/09/17 07: 39; Start 01/09/17 at 07:30; Stop 01/09/17 at 07:31; Status DC Diltiazem HCl 125 mg/Dextrose 125 ml @ 0 mls/hr CONT PRN IV SEE I/O RECORD Last administered on 01/09/17 07:40; Start 01/09/17 at 07:30 Aspirin (Children'S Aspirin) 324 mg 1X ONCE PO Last administered on 01/09/17 08:15; Start 01/09/17 at 07:45; Stop 01/09/17 at 07:46; Status DC Darbepoetin Jerome (Aranesp) 60 mcg WEEKLYHS SQ Last administered on 01/23/17 21: 26; Start 01/09/17 at 21:00 Albumin Human 500 ml @ 125 mls/hr 1X ONCE IV Last administered on 01/09/17 13:02; Start 01/09/17 at 13:00; Stop 01/09/17 at 16:59; Status DC Albumin Human 500 ml @ 125 mls/hr 1X ONCE IV Last administered on 01/09/17 16:35; Start 01/09/17 at 16:00; Stop 01/09/17 at 19:59; Status DC Digoxin (Lanoxin) 500 mcg 1X ONCE IV Last administered on 01/09/17 13:03; Start 01/09/17 at 13:00; Stop 01/09/17 at 13:01; Status DC Sodium Chloride 1,000 ml @ 1,000 mls/hr Q1H PRN IV hypotension; Start 01/09/17 at 16:31; Stop 01/09/17 at 22:30; Status DC Sodium Chloride 1,000 ml @ 400 mls/hr Q2H30M PRN IV PATENCY; Start 01/09/17 at 16:31; Stop 01/10/17 at 04:30; Status DC Info (PHARMACY MONITORING -- do not chart) 1 each PRN DAILY PRN MC SEE COMMENTS ; Start 01/09/17 at 16:45; Status Cancel Fentanyl Citrate (Fentanyl 2ml Vial) 50 mcg PRN Q4HRS PRN IV PAIN Last administered on 01/21/17 16:55; Start 01/09/17 at 18:00 Oxycodone/ Acetaminophen (Percocet 5/325) 1 tab PRN Q4HRS PRN PO PAIN Last administered on 01/20/17 20:34; Start 01/09/17 at 18:00 Fentanyl Citrate (Fentanyl 2ml Vial) 50 mcg 1X ONCE IM ; Start 01/09/17 at 20: 00; Stop 01/09/17 at 20:01; Status Cancel Fentanyl Citrate (Fentanyl 2ml Vial) 50 mcg 1X ONCE IV Last administered on 19:57; Start 01/09/17 at 20:00; Stop 01/09/17 at 20:01; Status DC Allopurinol (Zyloprim) 100 mg DAILY PO Last administered on 01/24/17 09:39; Start 01/10/17 at 14:30 Aspirin (Ecotrin) 81 mg DAILY PO Last administered on 01/24/17 09:39; Start at 14:30 Atenolol (Tenormin) 50 mg DAILY PO Last administered on 01/12/17 09:09; Start 01/10/17 at 14:30; Stop 01/12/17 at 14:50; Status DC Calcium Acetate (Phoslo) 2,001 mg TIDWMEALS PO Last administered on 01/24/17 09 :38; Start 01/10/17 at 17:00 Vitamin B Complex/ Vitamin C (Tsering-Ray) 1 tab HS PO Last administered on 21:25; Start 01/10/17 at 21:00 Gabapentin (Neurontin) 100 mg BID PO Last administered on 01/24/17 09:39; Start 01/10/17 at 14:30 Meloxicam (Mobic) 7.5 mg DAILY PO Last administered on 01/24/17 09:41; Start at 14:30 Fish Oil (Fish Oil) 1,000 mg DAILY PO Last administered on 01/24/17 09:39; Start 01/11/17 at 09:00 Pantoprazole Sodium (Protonix) 40 mg DAILYAC PO Last administered on 01/24/17 09:39; Start 01/10/17 at 14:30 Digoxin (Lanoxin) 500 mcg 1X ONCE IV Last administered on 01/10/17 15:23; Start 01/10/17 at 15:30; Stop 01/10/17 at 15:31; Status DC Albumin Human 500 ml @ 125 mls/hr 1X ONCE IV Last administered on 01/10/17 15:22; Start 01/10/17 at 15:15; Stop 01/10/17 at 19:14; Status DC Lidocaine HCl (Xylocaine-Mpf 1% Vial) 2 ml STK-MED ONCE .ROUTE ; Start 01/11/17 at 08:47; Stop 01/11/17 at 08:48; Status DC Sodium Chloride 1,000 ml @ 1,000 mls/hr Q1H PRN IV hypotension; Start 01/11/17 at 08:55; Stop 01/11/17 at 14:54; Status DC Albumin Human 200 ml @ 200 mls/hr 1X PRN PRN IV Hypotension; Start 01/11/17 at 09:00; Stop 01/11/17 at 14:59; Status DC Acetaminophen (Tylenol) 500 mg 1X PRN PRN PO MILD PAIN / TEMP; Start 01/11/17 at 09:00; Stop 01/12/17 at 08:59; Status DC Diphenhydramine HCl (Benadryl) 25 mg 1X PRN PRN IV ITCHING Last administered on 01/11/17 13:30; Start 01/11/17 at 09:00; Stop 01/12/17 at 08:59; Status DC Info (PHARMACY MONITORING -- do not chart) 1 each PRN DAILY PRN MC SEE COMMENTS ; Start 01/11/17 at 09:00; Stop 01/18/17 at 08:14; Status DC Lidocaine HCl (Xylocaine-Mpf 1% Vial) 2 ml 1X ONCE INJ Last administered on 10:01; Start 01/11/17 at 09:00; Stop 01/11/17 at 09:02; Status DC Albumin Human 500 ml @ 125 mls/hr 1X ONCE IV Last administered on 01/11/17 11:50; Start 01/11/17 at 11:45; Stop 01/11/17 at 15:44; Status DC Nitroglycerin (Nitrostat) 0.4 mg STK-MED ONCE SL ; Start 01/11/17 at 12:07; Stop 01/11/17 at 12:08; Status DC Nitroglycerin (Nitrostat) 0.4 mg PRN Q5MIN PRN SL CHEST PAIN Last administered on 01/11/17 12:35; Start 01/11/17 at 12:15 Morphine Sulfate 3 mg 1X ONCE IV Last administered on 01/11/17 12:15; Start 01/11/17 at 12:15; Stop 01/11/17 at 12:16; Status DC Digoxin (Lanoxin) 250 mcg 1X ONCE IV Last administered on 01/11/17 12:34; Start 01/11/17 at 12:30; Stop 01/11/17 at 12:31; Status DC Fentanyl Citrate (Fentanyl 5ml Vial) 250 mcg STK-MED ONCE .ROUTE ; Start at 13:07; Stop 01/11/17 at 13:08; Status DC Midazolam HCl (Versed) 5 mg STK-MED ONCE .ROUTE ; Start 01/11/17 at 13:07; Stop 01/11/17 at 13:08; Status DC Iohexol (Omnipaque 350 Mg/ml) 100 ml STK-MED ONCE .ROUTE ; Start 01/11/17 at 13: 08; Stop 01/11/17 at 13:09; Status DC Heparin Sodium/ Sodium Chloride 500 ml @ As Directed STK-MED ONCE .ROUTE ; Start 01/11/17 at 13:09; Stop 01/11/17 at 13:10; Status DC Lidocaine HCl 20 ml STK-MED ONCE .ROUTE ; Start 01/11/17 at 13:09; Stop at 13:10; Status DC Heparin Sodium/ Sodium Chloride 1,000 unit 1X ONCE IART Last administered on 13:50; Start 01/11/17 at 13:45; Stop 01/11/17 at 13:46; Status DC Midazolam HCl (Versed) 1 mg 1X ONCE IV Last administered on 01/11/17 13:51; Start 01/11/17 at 13:45; Stop 01/11/17 at 13:46; Status DC Fentanyl Citrate (Fentanyl 5ml Vial) 50 mcg 1X ONCE IV Last administered on 13:51; Start 01/11/17 at 13:45; Stop 01/11/17 at 13:46; Status DC Iohexol (Omnipaque 350 Mg/ml) 81 ml 1X ONCE IART Last administered on 13:51; Start 01/11/17 at 13:45; Stop 01/11/17 at 13:46; Status DC Lidocaine HCl 12 ml 1X ONCE IJ Last administered on 01/11/17 13:50; Start at 13:45; Stop 01/11/17 at 13:46; Status DC Info (Do NOT chart on this entry -- for MONITORING) 1 each PRN DAILY PRN MC SEE COMMENTS; Start 01/11/17 at 14:00; Stop 01/13/17 at 13:59; Status DC Albumin Human 250 ml @ 62.5 mls/hr 1X ONCE IV Last administered on 01/11/17 14:15; Start 01/11/17 at 14:15; Stop 01/11/17 at 18:14; Status DC Digoxin (Lanoxin) 250 mcg 1X ONCE IV Last administered on 01/11/17 19:02; Start 01/11/17 at 18:45; Stop 01/11/17 at 18:46; Status DC Ondansetron HCl (Zofran) 8 mg PRN Q6HRS PRN IV NAUSEA/VOMITING Last administered on 01/15/17 04:04; Start 01/11/17 at 18:45 Enoxaparin Sodium (Lovenox 100mg Syringe) 90 mg Q24H SQ Last administered on 21:09; Start 01/11/17 at 20:00; Stop 01/15/17 at 11:08; Status DC Propafenone HCl (Rythmol) 75 mg BID PO Last administered on 01/23/17 13:09; Start 01/12/17 at 21:00; Stop 01/23/17 at 13:49; Status DC Norepinephrine Bitartrate 250 ml @ 0 mls/hr CONT PRN IV SEE I/O RECORD Last administered on 01/17/17 23:13; Start 01/12/17 at 15:45 Info (Anti-Coagulation Monitoring By Pharmacy) 1 each PRN DAILY PRN MC SEE COMMENTS Last administered on 01/23/17 12:35; Start 01/13/17 at 09:00 Magnesium Sulfate/ Dextrose 50 ml @ 25 mls/hr PRN DAILY PRN IV for Mag < 1.7 on am labs; Start 01/13/17 at 10:45 Sodium Chloride 1,000 ml @ 80 mls/hr [id number] IV Last administered on 10:50; Start 01/13/17 at 10:45; Stop 01/14/17 at 19:07; Status DC Sodium Chloride 500 ml @ 0 mls/hr QID PRN IV for MAP < 65 Last administered on 01/14/17 01:15; Start 01/13/17 at 10:45 Sodium Chloride 1,000 ml @ 1,000 mls/hr Q1H PRN IV hypotension; Start 01/14/17 at 09:11; Stop 01/14/17 at 15:10; Status DC Info (PHARMACY MONITORING -- do not chart) 1 each PRN DAILY PRN MC SEE COMMENTS ; Start 01/14/17 at 09:15; Status UNV Piperacillin Sod/ Tazobactam Sod 2.25 gm/Sodium Chloride 50 ml @ 100 mls/hr Q8HRS IV Last administered on 01/17/17 05:01; Start 01/14/17 at 12:30; Stop 01/17/17 at 14:30; Status DC Micafungin Sodium 100 mg/Dextrose 100 ml @ 100 mls/hr Q24H IV Last administered on 01/16/17 13:42; Start 01/14/17 at 13:00; Stop 01/17/17 at 14:30 ; Status DC Vancomycin HCl (Vanco Per Pharmacy) 1 each PRN DAILY PRN MC SEE COMMENTS Last administered on 01/17/17 11:01; Start 01/15/17 at 07:15; Stop 01/17/17 at 14:30; Status DC Vancomycin HCl 2 gm/Sodium Chloride 500 ml @ 250 mls/hr 1X ONCE IV Last administered on 01/15/17 07:55; Start 01/15/17 at 08:00; Stop 01/15/17 at 09:59 ; Status DC Metronidazole 100 ml @ 100 mls/hr Q8H IV Last administered on 01/16/17 00:03 ; Start 01/15/17 at 08:00; Stop 01/16/17 at 08:02; Status DC Iohexol (Omnipaque 300 Mg/ml) 75 ml 1X ONCE IV ; Start 01/15/17 at 08:00; Stop 01/15/17 at 08:01; Status DC Lidocaine/Sodium Bicarbonate (Buffered Lidocaine 1%) 3 ml 1X ONCE IJ Last administered on 01/15/17 09:00; Start 01/15/17 at 08:30; Stop 01/15/17 at 08:32 ; Status DC Heparin Sodium/ Sodium Chloride 60 unit 1X ONCE IV Last administered on 09:01; Start 01/15/17 at 08:30; Stop 01/15/17 at 08:32; Status DC Heparin Sodium (Porcine) (Heparin Sodium) 3,000 unit 1X ONCE IV Last administered on 01/15/17 20:21; Start 01/15/17 at 21:00; Stop 01/15/17 at 21:01 ; Status DC Heparin Sodium/ Dextrose 500 ml @ 0 mls/hr CONT PRN IV SEE I/O RECORD Last administered on 01/22/17 03:24; Start 01/15/17 at 21:00 Iohexol (Omnipaque 300 Mg/ml) 75 ml 1X ONCE IV Last administered on 01/15/17 12:15; Start 01/15/17 at 12:15; Stop 01/15/17 at 12:16; Status DC Info (Do NOT chart on this entry -- for MONITORING) 1 each PRN DAILY PRN MC SEE COMMENTS; Start 01/15/17 at 12:15; Stop 01/17/17 at 12:14; Status DC Vancomycin HCl 1 each 1X ONCE MC Last administered on 01/17/17 05:00; Start at 05:00; Stop 01/17/17 at 05:01; Status DC Info (PHARMACY MONITORING -- do not chart) 1 each PRN DAILY PRN MC SEE COMMENTS ; Start 01/16/17 at 07:45; Status UNV Info (PHARMACY MONITORING -- do not chart) 1 each PRN DAILY PRN MC SEE COMMENTS ; Start 01/16/17 at 07:45; Status UNV Info (PHARMACY MONITORING -- do not chart) 1 each PRN DAILY PRN MC SEE COMMENTS ; Start 01/16/17 at 07:45; Status UNV Sodium Chloride 1,000 ml @ 1,000 mls/hr Q1H PRN IV hypotension; Start 01/16/17 at 07:32; Stop 01/16/17 at 13:31; Status DC Albumin Human 200 ml @ 200 mls/hr 1X PRN PRN IV Hypotension; Start 01/16/17 at 07:45; Stop 01/16/17 at 13:44; Status DC Info (PHARMACY MONITORING -- do not chart) 1 each PRN DAILY PRN MC SEE COMMENTS ; Start 01/16/17 at 07:45; Status UNV Gentamicin Sulfate 1 each ONCE ONCE MC ; Start 01/16/17 at 08:00; Stop at 08:04; Status DC Gentamicin Sulfate 180 mg/ Sodium Chloride 104.5 ml @ 104.5 mls/ hr 1X ONCE IV Last administered on 01/16/17t 11:50; Start 01/16/17 at 09:00; Stop at 09:59; Status DC Lidocaine HCl (Xylocaine 2% Topical 5gm Tube) 1 edwardo 1X ONCE TP ; Start at 14:45; Stop 01/16/17 at 14:53; Status DC Lidocaine HCl (Viscous Lidocaine) 15 ml 1X ONCE MM ; Start 01/16/17 at 14:45; Stop 01/16/17 at 14:53; Status DC Benzocaine (Hurricaine One) 1spray 1X ONCE MM Last administered on 01/16/17t 14:45; Start 01/16/17 at 14:45; Stop 01/16/17 at 14:53; Status DC Ondansetron HCl (Zofran) 4 mg PRN Q6HRS PRN IV NAUSEA/VOMITING; Start 01/17/17 at 07:00; Stop 01/18/17 at 06:59; Status DC Fentanyl Citrate (Fentanyl 2ml Vial) 25 mcg PRN Q5MIN PRN IV MILD PAIN; Start 01/17/17 at 07:00; Stop 01/18/17 at 06:59; Status DC Fentanyl Citrate (Fentanyl 2ml Vial) 50 mcg PRN Q5MIN PRN IV MODERATE PAIN; Start 01/17/17 at 07:00; Stop 01/18/17 at 06:59; Status DC Morphine Sulfate 1 mg PRN Q10MIN PRN IV SEVERE PAIN; Start 01/17/17 at 07:00; Stop 01/18/17 at 06:59; Status DC Ringer's Solution 1,000 ml @ 30 mls/hr Q24H IV ; Start 01/17/17 at 07:00; Stop 01/17/17 at 18:59; Status DC Lidocaine HCl 2 ml PRN 1X PRN ID PRIOR TO IV START; Start 01/17/17 at 07:00; Stop 01/18/17 at 06:59; Status DC Hydromorphone HCl (Dilaudid) 0.5 mg PRN Q10MIN PRN IV SEV PAIN, Second choice; Start 01/17/17 at 07:00; Stop 01/18/17 at 06:59; Status DC Prochlorperazine Edisylate (Compazine) 5 mg PACU PRN PRN IV NAUSEA, MRX1; Start 01/17/17 at 07:00; Stop 01/18/17 at 06:59; Status DC Propofol 20 ml @ As Directed STK-MED ONCE IV ; Start 01/17/17 at 10:24; Stop 01/17 at 10:25; Status DC Phenylephrine HCl 1 mg STK-MED ONCE IV ; Start 01/17/17 at 10:24; Stop 01/17/17 at 10:25; Status DC Vancomycin HCl 500 mg/Sodium Chloride 100 ml @ 100 mls/hr QTUTHSA IV ; Start at 16:00; Stop 01/18/17 at 16:00; Status DC Ampicillin Sodium 2 gm/Sodium Chloride 100 ml @ 200 mls/hr Q8HRS IV Last administered on 01/24/17 15:59; Start 01/17/17 at 15:00 Gentamicin Sulfate 270 mg/ Sodium Chloride 106.75 ml @ 106.75 mls/hr Q24H IV ; Start 01/17/17 at 14:15; Status UNV Info 1 each PRN DAILY PRN MC SEE COMMENTS Last administered on 01/24/17 13:47; Start 01/17/17 at 21:30 Amino Acids/ Glycerin/ Electrolytes 1,000 ml @ 50 mls/hr Q20H IV Last administered on 01/17/17 21:46; Start 01/17/17 at 21:30; Stop 01/18/17 at 21:59; Status DC Sodium Chloride 1,000 ml @ 1,000 mls/hr Q1H PRN IV hypotension; Start 01/18/17 at 08:05; Stop 01/18/17 at 14:04; Status DC Sodium Chloride 1,000 ml @ 400 mls/hr Q2H30M PRN IV PATENCY; Start 01/18/17 at 08:05; Stop 01/18/17 at 20:04; Status DC Info (PHARMACY MONITORING -- do not chart) 1 each PRN DAILY PRN MC SEE COMMENTS ; Start 01/18/17 at 08:15; Status Cancel Info (PHARMACY MONITORING -- do not chart) 1 each PRN DAILY PRN MC SEE COMMENTS ; Start 01/18/17 at 08:15; Stop 01/18/17 at 08:15; Status DC Sodium Chloride 90 meq/Potassium Chloride 50 meq/ Potassium Phosphate 13.6 mmol/ Magnesium Sulfate 10 meq/ Calcium Gluconate 10 meq/ Multivitamins 10 ml/Chromium / Copper/Manganese/ Seleni/Zn 1 ml/ Total Parenteral Nutrition/Amino Acids/ Dextrose/ Fat Emulsion Intravenous 1,512 ml @ 63 mls/hr TPN CONT IV Last administered on 01/18/17 20:59; Start 01/18/17 at 22:00; Stop 01/19/17 at 21:59; Status DC Gentamicin Sulfate 270 mg/ Sodium Chloride 106.75 ml @ 106.75 mls/hr 1X ONCE IV Last administered on 01/18/17 16:51; Start 01/18/17 at 16:00; Stop 01/18/17 at 16:59; Status DC Sodium Chloride 90 meq/Potassium Chloride 50 meq/ Potassium Phosphate 13.6 mmol/ Magnesium Sulfate 10 meq/ Calcium Gluconate 10 meq/ Multivitamins 10 ml/Chromium / Copper/Manganese/ Seleni/Zn 1 ml/ Total Parenteral Nutrition/Amino Acids/ Dextrose/ Fat Emulsion Intravenous 1,320 ml @ 55 mls/hr TPN CONT IV Last administered on 01/19/17 21:18; Start 01/19/17 at 22:00; Stop 01/20/17 at 21:59; Status DC Warfarin Sodium (Coumadin) 5 mg 1X ONCE PO Last administered on 01/20/17 16:16 ; Start 01/20/17 at 16:00; Stop 01/20/17 at 16:01; Status DC Warfarin Sodium (Coumadin Per Physician) 1 each PRN DAILY PRN MC SEE COMMENTS Last administered on 01/23/17 12:38; Start 01/20/17 at 13:15 Sodium Chloride 90 meq/Potassium Chloride 50 meq/ Magnesium Sulfate 10 meq/ Calcium Gluconate 10 meq/ Multivitamins 10 ml/Chromium/ Copper/Manganese/ Seleni /Zn 1 ml/ Total Parenteral Nutrition/Amino Acids/Dextrose/ Fat Emulsion Intravenous 1,200 ml @ 50 mls/hr TPN CONT IV Last administered on 01/20/17 20 :35; Start 01/20/17 at 22:00; Stop 01/21/17 at 21:59; Status DC Sodium Chloride 1,000 ml @ 1,000 mls/hr Q1H PRN IV hypotension; Start 01/21/17 at 08:06; Stop 01/21/17 at 14:09; Status DC Sodium Chloride 1,000 ml @ 400 mls/hr Q2H30M PRN IV PATENCY; Start 01/21/17 at 08:06; Stop 01/21/17 at 20:05; Status DC Info (PHARMACY MONITORING -- do not chart) 1 each PRN DAILY PRN MC SEE COMMENTS ; Start 01/21/17 at 08:15; Status UNV Info (PHARMACY MONITORING -- do not chart) 1 each PRN DAILY PRN MC SEE COMMENTS ; Start 01/21/17 at 08:15; Status UNV Digoxin (Lanoxin) 250 mcg 1X ONCE IV Last administered on 01/21/17 12:13; Start 01/21/17 at 12:00; Stop 01/21/17 at 12:01; Status DC Sodium Chloride 120 meq/Potassium Chloride 20 meq/ Magnesium Sulfate 10 meq/ Calcium Gluconate 10 meq/ Multivitamins 10 ml/Chromium/ Copper/Manganese/ Seleni /Zn 1 ml/ Total Parenteral Nutrition/Amino Acids/Dextrose/ Fat Emulsion Intravenous 1,200 ml @ 50 mls/hr TPN CONT IV Last administered on 01/21/17 22 :12; Start 01/21/17 at 22:00; Stop 01/22/17 at 21:59; Status DC Acetaminophen (Tylenol) 650 mg PRN Q6HRS PRN PO MILD PAIN / TEMP Last administered on 01/22/17 19:29; Start 01/21/17 at 20:45 Sodium Chloride 140 meq/Potassium Chloride 20 meq/ Magnesium Sulfate 10 meq/ Calcium Gluconate 10 meq/ Multivitamins 10 ml/Chromium/ Copper/Manganese/ Seleni /Zn 1 ml/ Total Parenteral Nutrition/Amino Acids/Dextrose/ Fat Emulsion Intravenous 1,200 ml @ 50 mls/hr TPN CONT IV Last administered on 01/22/17 21 :24; Start 01/22/17 at 22:00; Stop 01/23/17 at 21:59; Status DC Info (PHARMACY MONITORING -- do not chart) 1 each PRN DAILY PRN MC SEE COMMENTS ; Start 01/22/17 at 10:15; Stop 01/22/17 at 14:38; Status DC Albumin Human 100 ml @ 100 mls/hr 1X ONCE IV Last administered on 01/22/17 15 :19; Start 01/22/17 at 12:15; Stop 01/22/17 at 13:14; Status DC Gentamicin Sulfate 270 mg/ Sodium Chloride 106.75 ml @ 106.75 mls/hr 1X ONCE IV Last administered on 01/22/17 17:41; Start 01/22/17 at 18:00; Stop 01/22/17 at 18:59; Status DC Digoxin (Lanoxin) 250 mcg 1X ONCE IV Last administered on 01/22/17 22:32; Start 01/22/17 at 22:30; Stop 01/22/17 at 22:31; Status DC Sodium Chloride 1,000 ml @ 1,000 mls/hr Q1H PRN IV hypotension; Start 01/23/17 at 07:54; Stop 01/23/17 at 13:53; Status DC Albumin Human 200 ml @ 200 mls/hr 1X PRN PRN IV Hypotension Last administered on 01/23/17 09:23; Start 01/23/17 at 08:00; Stop 01/23/17 at 13:59; Status DC Sodium Chloride 1,000 ml @ 400 mls/hr Q2H30M PRN IV PATENCY; Start 01/23/17 at 07:54; Stop 01/23/17 at 19:53; Status DC Info (PHARMACY MONITORING -- do not chart) 1 each PRN DAILY PRN MC SEE COMMENTS ; Start 01/23/17 at 08:00; Stop 01/23/17 at 08:10; Status DC Info (PHARMACY MONITORING -- do not chart) 1 each PRN DAILY PRN MC SEE COMMENTS ; Start 01/23/17 at 08:00; Status Cancel Sodium Chloride 110 meq/Potassium Chloride 20 meq/ Magnesium Sulfate 10 meq/ Calcium Gluconate 10 meq/ Multivitamins 10 ml/Chromium/ Copper/Manganese/ Seleni /Zn 1 ml/ Total Parenteral Nutrition/Amino Acids/Dextrose/ Fat Emulsion Intravenous 1,200 ml @ 50 mls/hr TPN CONT IV Last administered on 01/23/17 20 :46; Start 01/23/17 at 22:00; Stop 01/24/17 at 21:59 Propafenone HCl (Rythmol) 150 mg BID PO Last administered on 01/24/17 09:39; Start 01/23/17 at 21:00 Propafenone HCl (Rythmol) 75 mg 1X ONCE PO Last administered on 01/23/17 14:11 ; Start 01/23/17 at 13:45; Stop 01/23/17 at 13:53; Status DC Warfarin Sodium (Coumadin) 5 mg 1X ONCE PO Last administered on 01/23/17 17:13 ; Start 01/23/17 at 16:00; Stop 01/23/17 at 16:01; Status DC Bisacodyl (Dulcolax Supp) 10 mg PRN DAILY PRN NM CONSTIPATION Last administered on 01/23/17 21:26; Start 01/23/17 at 18:30 Sodium Chloride 1,000 ml @ 1,000 mls/hr Q1H PRN IV hypotension; Start 01/24/17 at 08:39; Stop 01/24/17 at 14:38; Status DC Albumin Human 200 ml @ 200 mls/hr 1X PRN PRN IV Hypotension Last administered on 01/24/17 09:10; Start 01/24/17 at 08:45; Stop 01/24/17 at 14:44; Status DC Info (PHARMACY MONITORING -- do not chart) 1 each PRN DAILY PRN MC SEE COMMENTS ; Start 01/24/17 at 08:45; Status Cancel Info (PHARMACY MONITORING -- do not chart) 1 each PRN DAILY PRN MC SEE COMMENTS ; Start 01/24/17 at 08:45 Sodium Chloride 110 meq/Potassium Chloride 20 meq/ Magnesium Sulfate 10 meq/ Calcium Gluconate 5 meq/ Multivitamins 10 ml/Chromium/ Copper/Manganese/ Seleni/ Zn 1 ml/ Total Parenteral Nutrition/Amino Acids/Dextrose/ Fat Emulsion Intravenous 1,200 ml @ 50 mls/hr TPN CONT IV ; Start 01/24/17 at 22:00; Stop at 21:59 Active Scripts Active Reported Ferric Citrate 210 Mg Tablet 210 Mg PO Meloxicam 7.5 Mg Tablet 1 Tab PO DAILY Atenolol 50 Mg Tablet 1 Tab PO DAILY Tylenol (Acetaminophen) 325 Mg Tablet 500 Mg PO PRN Q6HRS PRN Aspir 81 (Aspirin) 81 Mg Tablet. 1 Tab PO DAILY Fish Oil 1,000 Mg Capsule ([place]-3 Fatty Acids/Fish Oil) 1 Each Capsule 1 Each PO BID Vitamin D2 (Ergocalciferol (Vitamin D2)) 50,000 Unit Capsule 50,000 Unit PO WEEKLY Allopurinol 100 Mg Tablet 1 Tab PO DAILY Nephro-Ray Tablet (Folic Acid/Vitamin B Comp W-C) 0.8 Mg Tablet 1 Tab PO HS Gabapentin 100 Mg Capsule 100 Mg PO BID Omeprazole 20 Mg Capsule.dr 20 Mg PO DAILY Calcium Acetate 667 Mg Capsule 2,001 Mg PO TIDWMEALS Allergies Allergies: Coded Allergies: ibuprofen (Verified Allergy, Intermediate, 02/29/16) "THINKS IT CAUSES HER KIDNEYS" I S O L A T I O N *CONTACT* (Verified Allergy, Unknown, 01/10/17) mrsa ROS Review of System Unable to obtain the patient is encephalopathic Physical Exam General: mild distress, Other (confused and not oriented) HEENT: Atraumatic, PERRLA Lungs: Other (wheeze) Heart: Other (irregular) Abdomen: Soft, No tenderness, Other (moderate edema) Skin: No significant lesion Neuro: Normal tone, Sensation intact, Cranial nerves 3-12 NL, Reflexes 2+, Other Psych/Mental Status: Other (disoriented) MUSCULOSKELETAL: No deformity Vitals VITALS Vital Signs Date Time Temp Pulse Resp B/P (MAP) Pulse Ox O2 Delivery O2 Flow Rate FiO2 01/24/17 16:00 66 17 91/42 (58) 94 Room Air 01/24/17 12:00 98.7 98.7 Labs Labs Laboratory Tests Test 01/23/17 05:32 01/23/17 08:45 01/24/17 05:45 01/24/17 07:15 Sodium Level 136 mmol/L (136-145) 137 mmol/L (136-145) Potassium Level 4.8 mmol/L (3.5-5.1) 4.6 mmol/L (3.5-5.1) Chloride Level 98 mmol/L (98-107) 99 mmol/L (98-107) Carbon Dioxide Level 28 mmol/L (21-32) 28 mmol/L (21-32) Anion Gap 10 (6-14) 10 (6-14) Blood Urea Nitrogen 25 mg/dL (7-20) 26 mg/dL (7-20) Creatinine 3.2 mg/dL (0.6-1.0) 2.9 mg/dL (0.6-1.0) Estimated GFR (Cockcroft-Gault) 14.2 15.9 Glucose Level 163 mg/dL (70-99) 188 mg/dL (70-99) Calcium Level 9.0 mg/dL (8.5-10.1) 9.3 mg/dL (8.5-10.1) Phosphorus Level 3.3 mg/dL (2.6-4.7) 2.9 mg/dL (2.6-4.7) Magnesium Level 2.2 mg/dL (1.8-2.4) 2.3 mg/dL (1.8-2.4) Prothrombin Time 15.0 SEC (11.7-14.0) 16.2 SEC (11.7-14.0) Prothromb Time International Ratio 1.3 (0.8-1.1) 1.4 (0.8-1.1) Heparin Anti-Xa Act, Unfractionated < 0.10 IU/mL (0.30-0.70) Test 01/24/17 08:15 Clostridium difficile Toxin (PCR) Negative (Negative) Laboratory Tests Test 01/24/17 05:45 01/24/17 07:15 01/24/17 08:15 Sodium Level 137 mmol/L (136-145) Potassium Level 4.6 mmol/L (3.5-5.1) Chloride Level 99 mmol/L (98-107) Carbon Dioxide Level 28 mmol/L (21-32) Anion Gap 10 (6-14) Blood Urea Nitrogen 26 mg/dL (7-20) Creatinine 2.9 mg/dL (0.6-1.0) Estimated GFR (Cockcroft-Gault) 15.9 Glucose Level 188 mg/dL (70-99) Calcium Level 9.3 mg/dL (8.5-10.1) Phosphorus Level 2.9 mg/dL (2.6-4.7) Magnesium Level 2.3 mg/dL (1.8-2.4) Prothrombin Time 16.2 SEC (11.7-14.0) Prothromb Time International Ratio 1.4 (0.8-1.1) Heparin Anti-Xa Act, Unfractionated < 0.10 IU/mL (0.30-0.70) Clostridium difficile Toxin (PCR) Negative (Negative) Images Images LEFT VENTRICLE The left ventricle is normal size. There is normal left ventricular wall thickness. The left ventricular systolic function is normal and the ejection fraction is within normal range. Visually, the left ventricular ejection fraction is estimated at 65%. There is normal LV segmental wall motion. RIGHT VENTRICLE The right ventricle is normal size. There is normal right ventricular wall thickness. The right ventricular systolic function is normal. AORTIC VALVE The aortic valve is mildly sclerotic. The aortic valve is trileaflet. Doppler and Color Flow revealed moderate aortic regurgitation. There is no significant aortic valvular stenosis. A 2 x 1 x 2 cm. hyperechoic mass is noted attached to the non-coronary cusp of the aortic valve consistent with a vegetation. MITRAL VALVE The mitral valve leaflets are thickened and calcified. There is no evidence of mitral valve prolapse. A small, mobile vegetation is noted superior and medially to the mitral valve. There is no mitral valve stenosis. Doppler and Color Flow revealed moderate mitral regurgitation. TRICUSPID VALVE Insufficient tricuspid regurgitation, unable to determine pulmonary artery pressure at exam time. PULMONIC VALVE The pulmonic valve is not visualized, unable to assess. Assessment/Plan Assessment/Plan 72-year-old female, with end-stage renal failure on dialysis through a left arm AV fistula. She was admitted on January 09, 2017 with increased shortness of breath and A. fib with RVR. She subsequently developed fevers with hypotension and appears to be septic. Blood cultures were positive for enterococcus. MARY JANE demonstrated a 2 cm aortic valve vegetation with mild to moderate AI and a small vegetation on the mitral valve with mild to moderate MR. The patient is currently not a candidate for open heart surgery whatsoever. She is encephalopathic, bedridden and severely malnutrition. She also has thrombocytopenia and her platelets have been below 70,000. I would recommend 6 weeks total of IV antibiotics and then reimage her with repeat MARY JANE. I think the small vegetation on the mitral valve will resolve with the antibiotics. I'm not that optimistic though for the aortic valve as the vegetation is more sizable at 2 cm. If repeat MARY JANE demonstrates resolution of both vegetations that she will not require cardiac surgery. If the aortic valve vegetation persists, then she would ideally need an aortic valve replacement. For her to undergo open heart surgery, her current status will need to significantly improve. Hopefully the antibiotics will take care of the small vegetation of the mitral valve, as a double valve replacement AVR/MVR would be even more riskier. Would strongly recommend providing enteral nutrition and even consider inserting a PEG. We can reassess after she has completed her full course of antibiotics and a repeat MARY JANE has been obtained. If the aortic valve vegetation persists we will assess her status and candidacy for an aortic valve replacement at that time. JANAE HUMMEL MD Jan 24, 2017 16:41
[2017-01-24] MEDS: ANTI-COAG MONITOR BY PHARMACY. MC PRN (16:42)
[2017-01-24] MEDS ORDERED: DEXTROSE 70% IV SCH ×9 (22:00)
[2017-01-24] MEDS ORDERED: [UNRECOGNIZED DRUG - OTHER] IV SCH ×9 (22:00)
[2017-01-24] MEDS ORDERED: AMINO ACIDS IV SCH ×9 (22:00)
[2017-01-24] MEDS ORDERED: TOTAL PARENTERAL NUTRITION IV SCH ×9 (22:00)
== END 2017-01-24 18:00 | DRG 871 ==
LOC: ER 06:05 → 1 WEST ICU 07:36
PROVIDERS: ADMIT Internal Medicine Cardiovascular Disease; ATTEND Internal Medicine Cardiovascular Disease
PROC: 5A1D60Z (ICD-10-PCS; 2017-01-11)
PROC: 4A023N7 Measurement of Cardiac Sampling and Pressure, Left Heart, Percutaneous Approach (ICD-10-PCS; principal; 2017-01-12)
PROC: B2111ZZ Fluoroscopy of Multiple Coronary Arteries using Low Osmolar Contrast (ICD-10-PCS; 2017-01-12)
PROC: B24BZZ4 Ultrasonography of Heart with Aorta, Transesophageal (ICD-10-PCS; 2017-01-12)
PROC: 05HY33Z Insertion of Infusion Device into Upper Vein, Percutaneous Approach (ICD-10-PCS; 2017-01-15)
DX: A41.81 Sepsis due to Enterococcus (principal); N18.6 End stage renal disease; I21.4 Non-ST elevation (NSTEMI) myocardial infarction; I33.0 Acute and subacute infective endocarditis; E43 Unspecified severe protein-calorie malnutrition; G93.41 Metabolic encephalopathy; I13.2 Hypertensive heart and chronic kidney disease with heart failure and with stage 5 chronic kidney disease, or end stage renal disease; D69.6 Thrombocytopenia, unspecified; Z68.41 Body mass index [BMI] 40.0-44.9, adult; E11.22 Type 2 diabetes mellitus with diabetic chronic kidney disease; I95.9 Hypotension, unspecified; I48.91 Unspecified atrial fibrillation; R00.1 Bradycardia, unspecified; E86.0 Dehydration; D73.89 Other diseases of spleen; D18.03 Hemangioma of intra-abdominal structures; D64.9 Anemia, unspecified; E66.9 Obesity, unspecified; E86.1 Hypovolemia; I08.0 Rheumatic disorders of both mitral and aortic valves; I25.10 Atherosclerotic heart disease of native coronary artery without angina pectoris; I50.9 Heart failure, unspecified; M10.9 Gout, unspecified; Z79.82 Long term (current) use of aspirin; Z86.19 Personal history of other infectious and parasitic diseases; Z90.710 Acquired absence of both cervix and uterus; Z95.2 Presence of prosthetic heart valve; Z98.84 Bariatric surgery status; Z99.2 Dependence on renal dialysis; E21.3 Hyperparathyroidism, unspecified; E83.51 Hypocalcemia; M19.90 Unspecified osteoarthritis, unspecified site; J02.9 Acute pharyngitis, unspecified; M25.519 Pain in unspecified shoulder; M54.2 Cervicalgia; Z90.49 Acquired absence of other specified parts of digestive tract; Z88.8 Allergy status to other drugs, medicaments and biological substances; Z95.0 Presence of cardiac pacemaker; R63.0 Anorexia
CPT/HCPCS: 36415; 36556; 70450; 71010; 71260; 72125; 72128; 74177; 76641; 76700; 76937; 78306; 80047; 80048; 80053; 80069; 80170; 80202; 82140; 82533; 82550; 82607; 82962; 83605; 83735; 84100; 84145; 84443; 84478; 84484; 85007; 85025; 85027; 85520; 85610; 85651; 87040; 87205; 87324; 87641; 93005; 93306; 93308; 93312; 93320; 93325; 93458; 93931; 95816; 96361; 96365; 96374; 96375; 99152; 99153; A9503; C1769; C1771; C1892; G0269; J0290; J0610; J0881; J1160; J1200; J1580; J1644; J1650; J2248; J2250; J2270; J2370; J2405; J2543; J2704; J3010; J3370; J3475; J3490; J7030; J7040; P9041; P9045; P9046; Q9967; 97110; 97530; 97535; 99285-25; J2001

== ENCOUNTER 2017-02-02 12:18 | Emergency (ER) | payer MEDICARE, BC ==
[2017-01-24 17:00] VITALS: BP 100/47
[~2017-02-02 12:18] MED LIST changes: +ACET325T9 PO; +ASPI-482 PO; +ATEN50TA PO; +FERR210T PO
--- NOTE | 2017-02-02 12:37 | PHYS DOC ---
Past Medical History Past Medical History: Anemia, Diabetes-Type II, Hypertension, Renal Failure Additional Past Medical Histor: hypocalcemia,bradycardia,obesity,gout, DIALYSIS Past Medical History endocarditis Past Surgical History: Cholecystectomy, Gastric Bypass, Hysterectomy, Pacemaker , Other Additional Past Surgical Histo: left fa av shunt, Alcohol Use: None Drug Use: None Adult General Chief Complaint Chief Complaint: CPR/FULL ARREST HPI HPI Patient is a 72 year old female who presents with transferred from a senior living to radiology for CT scan to evaluate decreased mental status and had recently been 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 Immediate discussion with the confirms that the patient is a DNR. Onset was prior to arrival, severity high, no associated symptoms prior to arrival Review of Systems Review of Systems Unable to obtain secondary to patient being pulseless apneic and comatose Allergies Allergies Allergies Coded Allergies Type Severity Reaction Last Updated Verified ibuprofen Allergy Intermediate 02/29/16 Yes I S O L A T I O N *CONTACT* Allergy Unknown 01/10/17 Yes Physical Exam Physical Exam Constitutional: Well developed, well nourished, pale, unresponsive HENT: Normocephalic, atraumatic,, oropharynx moist, no oral exudates, nose normal. [] Eyes: 3 mm equal and nonreactive, conjunctiva normal, no discharge. [] Neck: No swelling[] Cardiovascular: No heart sounds auscultated no palpable pulse Lungs & Thorax: Apneic Abdomen: soft, no masses, no pulsatile masses. [] Skin: Warm, dry, no erythema, no rash. [] Back:. [] Extremities: No tenderness, no cyanosis, no clubbing, ROM intact, no edema. [] Neurologic: Comatose Psychologic: Unable to obtain Physical exam limited by patient being comatose apneic and pulseless. EKG EKG [] Radiology/Procedures Radiology/Procedures [] Course & Med Decision Making Course & Med Decision Making Pertinent Labs and Imaging studies reviewed. (See chart for details) Patient arrived pulseless apneic and comatose. confirm patient is a DNR. Patient was placed on a monitor confirmed asystole no palpable pulses and not breathing completely unresponsive. Discussed the case with Dr. Laws. [] Dragon Disclaimer Dragon Disclaimer This electronic medical record was generated, in whole or in part, using a voice recognition dictation system. Departure Departure Impression: Primary Impression: Cardiac arrest Additional Impression: Endocarditis Disposition: 20 Condition: Problem Qualifiers CYNDY ROCK MD Feb 02, 2017 12:37
== END 2017-02-02 15:30 | disposition expired ==
LOC: ER 12:18
DX: I46.9 Cardiac arrest, cause unspecified (principal); I38 Endocarditis, valve unspecified; E11.22 Type 2 diabetes mellitus with diabetic chronic kidney disease; I12.9 Hypertensive chronic kidney disease with stage 1 through stage 4 chronic kidney disease, or unspecified chronic kidney disease; N18.9 Chronic kidney disease, unspecified; M10.9 Gout, unspecified; E66.9 Obesity, unspecified; Z95.0 Presence of cardiac pacemaker; Z90.49 Acquired absence of other specified parts of digestive tract; Z90.710 Acquired absence of both cervix and uterus; Z88.6 Allergy status to analgesic agent; Z91.041 Radiographic dye allergy status
CPT/HCPCS: 99285